=== PATIENT | male | born 1940 | race Caucasian/White ===

== ENCOUNTER 2018-04-03 13:25 | Emergency (ER) | payer MEDICARE, OTHER, SELFPAY ==
[2018-04-03] VITALS (29 sets, daily range): BP systolic 96–144; BP diastolic 53–75; PULSE 59–92; RESP 13–25; TEMP 36.3; O2SAT 89–98
--- NOTE | 2018-04-03 14:32 | ED.GENADUL_ITS ---
Discharge Plan Disposition Patient Disposition: HOME Discharge Details Chief Complaint: Dizzy/Sync Clinical Impression: Light-headedness, Elevated serum creatinine Primary Care Provider: Taz Collins ED Provider: Sammy Mahoney Home Meds and New Rx's Prescriptions: Continued atorvastatin 80 MG tablet 80 mg PO DAILY RF: 0 nitroglycerin 0.4 MG tablet, sublingual 0.4 mg Sublingual PRN PRNRF: 0 acetaminophen [Tylenol Arthritis Pain] 650 MG tablet extended release 1,300 mg PO Q6H PRN PRNQty: 0 RF: 0 terazosin 2 MG capsule 2 mg PO HS RF: 0 potassium chloride 10 MEQ capsule, extended release 20 meq PO DAILY RF: 0 allopurinol 100 MG tablet 300 mg PO DAILY RF: 0 aspirin [Aspir-81] 81 MG tablet,delayed release (DR/EC) 81 mg PO DAILY RF: 0 furosemide 40 MG tablet 40 mg PO DAILY RF: 0 metolazone 2.5 MG tablet 2.5 mg PO DIRECTED RF: 0 losartan 25 MG tablet 100 mg PO DAILY RF: 0 metoprolol succinate 25 MG tablet extended release 24 hr 50 mg PO DAILY RF: 0 Discharge Instructions Instructions: Lightheadedness (ED) Additional Instructions: Drink fluid regularly to stay hydrated. Please follow-up with your primary care physician. Call tomorrow. Additional outpatient diagnostic testing may be necessary. Return to the ER for any worsening or new concerning Referrals: Taz Collins MD [Primary Care Provider] - Discharge Data Discharge Date/Time-TO BE ENTERED AT DEPARTURE: 04/03/18 16:45 Medical Decision Making 14:32 -- 77-year-old male with history of ischemic cardiomyopathy, coronary artery disease, CHF, hypertension, chronic kidney disease, prostate cancer, here with presyncope intermittent over the past 6 weeks. Orthostatics normal. ECG reviewed and interpreted by me: Sinus rhythm 68 bpm, first-degree AV block with SD interval of 226, right bundle branch block, nondiagnostic. Check screening labs to assess for electrolyte abnormalities. Will check UA. -- labs reviewed and Cr elevated from baseline at 2.18., otherwise nondiagnostic. 16:35 -- Patient reassessed and notes feeling better. He remains hemodynamically stable plan is to have him follow-up with his primary care physician. He may benefit from outpatient echocardiogram and repeat testing of kidney function. I called and spoke with Dr. Collins who will arrange outpatient followup. HPI General Mode of arrival: ambulatory . Date/Time Provider Initiated Documentation: 04/03/18 14:28 . Limitations to Documentation: no limitations . HPI Narrative: 77-year-old male with history of ischemic cardiomyopathy, coronary artery disease, CHF, hypertension, chronic kidney disease, prostate cancer, here with presyncope intermittent over the past 6 weeks. Symptoms moderate intensity. No modifers. Sy mptoms progressively worse. Episodes are brief. He had no associated SOB or chest pain. No HATFIELD, numbness or weakness. No fevers. No new leg swelling or calf pain. Related Data Home Medications Medication Instructions Recorded Confirmed atorvastatin 80 mg PO DAILY 12/31/12 04/03/18 nitroglycerin 0.4 mg SUBLINGUAL PRN PRN 12/31/12 04/03/18 acetaminophen [Tylenol Arthritis 1,300 mg PO Q6H PRN PRN #0 01/03/13 04/03/18 Pain] terazosin 2 mg PO HS 03/05/13 04/03/18 potassium chloride 20 meq PO DAILY 03/15/15 04/03/18 allopurinol 300 mg PO DAILY 10/28/15 04/03/18 aspirin [Aspir-81] 81 mg PO DAILY 10/28/15 04/03/18 furosemide 40 mg PO DAILY 09/20/16 04/03/18 metolazone 2.5 mg PO DIRECTED 09/20/16 04/03/18 losartan 100 mg PO DAILY 04/03/18 04/03/18 metoprolol succinate 50 mg PO DAILY 04/03/18 04/03/18 Previous Rx's Medication Instructions Recorded acetaminophen [Tylenol Arthritis 1,300 mg PO Q6H PRN PRN #0 01/03/13 Pain] Allergies Allergy/AdvReac Type Severity Reaction Status Date / Time amlodipine AdvReac Intermediate Swelling/Ed Unverified 04/03/18 13:34 lottie enalapril maleate AdvReac Intermediate cough Unverified 04/03/18 13:34 [From Vasotec] enalaprilat dihydrate AdvReac Intermediate cough Unverified 04/03/18 13:34 [From Vasotec] General Stated Complaint: Dizzy/Sync RUPESH: 3 Review of Systems Review of Systems All systems reviewed & are unremarkable except as noted in HPI and below PFSH Social History Smoking and Tabacco status: Former Tobacco Use Exam Const General: cooperative and no acute distress HENMT Head: normocephalic and atraumatic Mouth: moist mucous membranes Eyes Conjunctivae: normal conjunctivae Sclera: normal sclerae EOM: EOM intact bilaterally Neck Neck: trachea midline and supple Resp Auscultation: clear to auscultation bilaterally, no rales, no rhonchi and no wheezes Cardio Jugular venous pressure: no JVD Rate: regular rate and not tachycardic Rhythm: regular rhythm GI Palpation: soft, not firm, no guarding, no masses, not rigid and nontender Skin General skin exam: no rashes or lesions noted Neuro General: alert, awake, oriented x3, tone normal and no focal motor deficits Cranial Nerves: CN's II-XI intact bilaterally Cognition: normal cognition Speech: speech normal Motor: strength 5/5 throughout Sensory Exam: no sensory deficits noted Extrem General: no edema Psych Appearance: grossly normal Mental Status: mental status grossly normal Speech and Movement: speech and movement normal Course Vital Signs Respiratory Rate 15 04/03/18 13:25 Pulse Oximetry 98 04/03/18 13:25 Temperature 36.3 C L 04/03/18 13:31 Temperature Source Skin 04/03/18 13:31 Pulse 66 04/03/18 14:01 Pulse 66 04/03/18 14:10 Respiratory Rate 19 04/03/18 14:10 Respiratory Effort Non-Labored 04/03/18 13:47 Respiratory Depth Normal 04/03/18 13:47 Respiratory Pattern Normal 04/03/18 13:47 Blood Pressure 103/75 04/03/18 14:01 Blood Pressure Mean 82 04/03/18 14:01 Blood Pressure Position Supine 04/03/18 13:31 Pulse Oximetry 89 L 04/03/18 14:10 Pain Level 0 04/03/18 13:31
[2018-04-03] MEDS: Normal Saline 250 ML IV (14:37)
[2018-04-03 14:53] LABS: Abs Immature Grans 0.02 k/cumm (0.0-0.09); Absolute Basophil Count 0.03 k/cumm (0.0-0.2); Absolute Lymphocyte Count 1.51 k/cumm (1.2-3.4); Absolute Monocyte Count 0.81 k/cumm (0.11-0.7); Absolute Neutrophil Count 6.19 k/cumm (1.2-6.7); Basophils % 0.3; Eosinophils % 1.2; HCT 38.1 % (40.0-50.0); HGB 12.4 g/dL (13.5-17.5); Immature Grans % 0.2; Lymphocytes % 17.4; Mean Corp. HGB Concentration 32.5 g/dL (32.0-36.0); Mean Corpuscular Hemoglobin 32.7 pg (27.0-33.0); Mean Corpuscular Volume 100.5 fL (80-95); Mean Platelet Volume 9.6 fL (8.0-11.0); Monocytes % 9.4; Neutrophils % 71.5; Platelet Count 327 x1000/uL (130-400); RBC 3.79 m/cumm (4.50-6.00); RBC Distribution Width 13.9 % (11.8-14.1); White Blood Cell Count 8.66 k/cumm (4.4-10.8)
[2018-04-03 14:57] LABS: Bilirubin Negative (Negative); Blood Negative (Negative); Clarity Clear; Glucose Negative (Negative); Ketones Negative (Negative); Leukocyte Esterase Negative (Negative); Nitrite Negative (Negative); Specific Gravity 1.015 (1.005-1.025); Urobilinogen 0.2 EU/dL (Up TO 0.2)
[2018-04-03 14:59] LABS: ALT 29 U/L (12-78); AST 22 U/L (15-37); Albumin 3.2 g/dL (3.4-5.0); Alkaline Phosphatase 170 U/L (46-116); Anion Gap 9.4 mmol/L (3-11); BUN 40 mg/dL (7-18); Bilirubin, Total 0.8 mg/dL (0.2-1.0); CO2 29.6 mmol/L (21.0-32.0); CREATININE 2.18 mg/dL (0.70-1.30); Calcium 8.8 mg/dL (8.5-10.1); Chloride 100 mmol/L (98-107); Estimated GFR 29.48 (mL/min/1.73m2); Glucose 97 mg/dL (70-100); Magnesium 1.9 mg/dL (1.8-2.4); Sodium 139 mmol/L (136-145); Total Protein 6.9 g/dL (6.4-8.2)
[2018-04-03 15:00] LABS: Troponin I < 0.02 ng/mL (0.00-0.06)
== END 2018-04-03 16:45 | disposition home or self-care (01) ==
PROVIDERS: Emergency Provider Student in an Organized Health Care Education/Training Program; PCP Internal Medicine
DX: R42 Dizziness and giddiness (principal); R94.4 Abnormal results of kidney function studies; I25.5 Ischemic cardiomyopathy; J44.9 Chronic obstructive pulmonary disease, unspecified; Z87.891 Personal history of nicotine dependence; I12.9 Hypertensive chronic kidney disease with stage 1 through stage 4 chronic kidney disease, or unspecified chronic kidney disease; N18.9 Chronic kidney disease, unspecified; I25.10 Atherosclerotic heart disease of native coronary artery without angina pectoris; Z95.5 Presence of coronary angioplasty implant and graft
CPT/HCPCS: 36415; 80053; 93005; 96360; 99284; 81003; 83735; 84484; 85025; 93010

== ENCOUNTER 2018-08-27 13:05 | Outpatient (REF) | payer MEDICARE, OTHER, SELFPAY ==
[2018-08-27 21:02] LABS: Anion Gap 11.2 mmol/L (3-11); BUN 31 mg/dL (7-18); CO2 26.8 mmol/L (21.0-32.0); CREATININE 1.39 mg/dL (0.70-1.30); Calcium 8.5 mg/dL (8.5-10.1); Chloride 100 mmol/L (98-107); Estimated GFR 49.55 (mL/min/1.73m2); Glucose 114 mg/dL (70-100); Potassium 4.3 mmol/L (3.5-5.1); Sodium 138 mmol/L (136-145)
== END 2018-08-27 13:25 ==
LOC: NCHCN 13:05
PROVIDERS: PCP Internal Medicine; Visit Provider Internal Medicine
DX: I10 Essential (primary) hypertension (principal)
CPT/HCPCS: 80048

== ENCOUNTER 2019-09-03 09:14 | Outpatient (REF) | payer MEDICARE, OTHER, SELFPAY ==
[2019-09-03 21:45] LABS: Anion Gap 10.9 mmol/L (3-11); CO2 28.1 mmol/L (21.0-32.0); CREATININE 1.66 mg/dL (0.70-1.30); Calcium 9.7 mg/dL (8.5-10.1); Calculated LDL 74 mg/dL (<100); Chloride 98 mmol/L (98-107); Cholesterol 151 mg/dL (<200); Estimated GFR 40.27 (mL/min/1.73m2); Glucose 95 mg/dL (74-106); HDL Cholesterol 45 mg/dL (40-60); Potassium 5.1 mmol/L (3.5-5.1); Sodium 137 mmol/L (136-145); Triglyceride 164 mg/dL (<150)
[2019-09-03 22:19] LABS: BUN 55 mg/dL (7-18)
== END 2019-09-03 09:34 ==
LOC: NCHCN 09:14
PROVIDERS: PCP Internal Medicine; Visit Provider Internal Medicine
DX: I10 Essential (primary) hypertension (principal); E78.5 Hyperlipidemia, unspecified; N18.9 Chronic kidney disease, unspecified
CPT/HCPCS: 80048; 80061

== ENCOUNTER 2020-03-10 15:25 | Outpatient (REF) | payer MEDICARE, OTHER, SELFPAY ==
[2020-03-10 14:05] LABS: BUN 35 mg/dL (7-18); CREATININE 1.84 mg/dL (0.70-1.30); Calcium 8.4 mg/dL (8.5-10.1); Chloride 94 mmol/L (98-107); Estimated GFR 35.66 (mL/min/1.73m2); Glucose 97 mg/dL (74-106); Magnesium 1.5 mg/dL (1.8-2.4); Potassium 4.1 mmol/L (3.5-5.1); Sodium 134 mmol/L (136-145); TSH 1.67 uIU/mL (0.36-3.74)
== END 2020-03-10 15:45 ==
LOC: NCHCN 15:25
PROVIDERS: PCP Internal Medicine; Visit Provider Internal Medicine
DX: I10 Essential (primary) hypertension (principal); I25.10 Atherosclerotic heart disease of native coronary artery without angina pectoris; N18.30 Chronic kidney disease, stage 3 unspecified
CPT/HCPCS: 80048; 83735; 84443

== ENCOUNTER 2020-03-24 13:49 | Inpatient (IN) | payer MEDICARE, OTHER, SELFPAY ==
[2020-03-24] VITALS (46 sets, daily range): BP systolic 109–170; BP diastolic 46–109; PULSE 48–139; RESP 17–29; TEMP 36.1–37.1; O2SAT 90–99
--- NOTE | 2020-03-24 13:45 | DI.RAD_ITS ---
EXAM: XR CHEST 2V PA LATERAL CLINICAL HISTORY: weakness/fall TECHNIQUE: 2D digital imaging was performed. COMPARISON: CT CHEST WITHOUT CONTRAST from 10/28/2016 FINDINGS: AP view is lordotic. The lungs are not well inflated on the lateral view which also shows respirator y motion. The heart is enlarged. The aorta is tortuous. The lungs appear clear. No pneumothorax o r compression fractures are seen. There are degenerative changes in the spine and shoulders. There is no evidence infiltrate or effusion. IMPRESSION: Cardiomegaly. No acute pulmonary findings. DATA REPOSITORY: RADIATION DOSE DELIVERED:
--- NOTE | 2020-03-24 13:45 | DI.CT_ITS ---
EXAM: CT HEAD WO CLINICAL HISTORY: fall; altered. TECHNIQUE: Imaging Protocol: Axial computed tomography images with coronal and sagittal reformatted images were created and reviewed COMPARISON: No exams were available for comparison FINDINGS: Ventricles and Extra axial spaces: Moderate to severe atrophy. Ventricular size is proportional to d egree of atrophy. Hemorrhage: None. Cerebral parenchyma: Normal. Midline shift: None. Brainstem/Cerebellum: Normal. Calvarium: Normal. Visualized Paranasal sinuses/Mastoids: Clear. Soft Tissues: Unremarkable. IMPRESSION: Atrophy. No acute intracranial process. RADIATION DOSE DELIVERED: 797.85mGy.cm Total DLP DATA REPOSITORY: All CT scans at this facility are submitted to the National Radiology Data Registry (NRDR) Dose Index Registry (DIR) with the [employer] (A[employer]). RADIATION OPTIMIZATION: All CT scans at this facility use at least one of these dose optimization te chniques: automated exposure control; mA and/or kV adjustment per patient size (includes targeted exa ms where dose is matched to clinical indication); or iterative reconstruction.
--- NOTE | 2020-03-24 13:45 | RT.EKG_ITS ---
APPROVED REPORT Exam: Resting ECG Patient Location: E HR:91 bpm ECG Measurements Heart Rate 91 AXIS PA 205 P 51 QRSd 141 QRS -69 QT 407 T 61 QTc 503 Conclusion Sinus arrhythmia...V-rate 70-112, variation>10% Atrial premature complex...SV complex w/ short R-R interval Right bundle branch block...QRSd>120, terminal axis(90,270) Inferolateral infarct, old...Q >40mS, inf-lat leads No STEMI.
--- NOTE | 2020-03-24 13:45 | DI.RAD_ITS ---
EXAM: XR PELVIS AP CLINICAL HISTORY: fall. TECHNIQUE: 2D digital imaging was performed. COMPARISON: CR RT HIP COMPLETE AP PELVIS from 08/01/2017 FINDINGS: BONES: No acute fracture is present. No bony destructive lesion is seen. JOINTS: No dislocation present. No joint space narrowing is present. Left hip prosthesis, stable appe arance. SOFT TISSUE: Vascular calcifications. Bladder catheter. IMPRESSION: Unremarkable radiographs of the pelvis. DATA REPOSITORY: RADIATION DOSE DELIVERED:
--- NOTE | 2020-03-24 14:04 | ED.GENADUL_ITS ---
Discharge Plan Disposition Patient Disposition: [facility] INPATIENT Condition: Poor Discharge Details Clinical Impression: Rhabdomyolysis, Acute dehydration, Acute kidney injury superimposed on chronic kidney disease Primary Care Provider: Taz Collins ED Provider: Diego Sherman and New Rx's Prescriptions: No Action atorvastatin 80 MG tablet 80 mg PO DAILY RF: 0 nitroglycerin 0.4 MG tablet, sublingual 0.4 mg Sublingual PRN PRNRF: 0 acetaminophen [Tylenol Arthritis Pain] 650 MG tablet extended release 1,300 mg PO Q6H PRN PRNQty: 0 RF: 0 potassium chloride 10 MEQ capsule, extended release 20 meq PO DAILY RF: 0 allopurinol 100 MG tablet 300 mg PO DAILY RF: 0 aspirin [Aspir-81] 81 MG tablet,delayed release (DR/EC) 81 mg PO DAILY RF: 0 magnesium L-lactate [Mag-Lactate SR] 84 mg Tablet Extended Release 84 mg PO DAILY RF: 0 furosemide 40 MG tablet 40 mg PO DAILY RF: 0 metolazone 2.5 MG tablet 2.5 mg PO DIRECTED RF: 0 losartan 25 MG tablet 100 mg PO DAILY RF: 0 metoprolol succinate 25 MG tablet extended release 24 hr 50 mg PO DAILY RF: 0 Medical Decision Making Patient presenting after being found on the floor at his house. Denies chest pain, shortness of breath, syncope. Unable to get up after a mechanical fall. No clear-cut injury. Will obtain CT head, chest x-ray, pelvis x-ray. Will start fluids and place Garcia catheter to monitor I's and O's. Laboratory studies including CPK sent. EKG appears to be sinus rhythm with PACs and irregular. Right bundle branch block present. Nursing and myself unable to pass Garcia catheter. I spoke with Dr. Marshall who agreed to come down in place Garcia for us. Laboratory studies are showing an elevated white count, elevated BUN and creatinine, low potassium, intermediate troponin and elevated CPK. CT head negative for bleed. Chest x-ray and pelvis x-ray negative for acute abnormalities. Urinalysis negative for infection. Initial Garcia output 500 to 600 mL after placement. No significant urine output since then despite receiving fluids at 300 an hour. Case discussed with hospitalist. Because of history of CAD/ischemic cardiomyopathy/CHF with no recent ejection fraction documented will put in ICU overnight for fluid resuscitation and monitoring of oxygenation and urine output. I did speak to the patient's son to give him an update. Medical Records Medical records reviewed: Yes I reviewed the patient's medical records. Lab Data Lab results reviewed: Yes I reviewed the patient's lab results. ECG Data Attestation: I personally reviewed and interpreted this ECG (s) as follows: Interpretation: see EKG HPI General Mode of arrival: EMS . Date/Time Provider Initiated Documentation: 03/24/20 13:59 . Limitations to Documentation: no limitations . Information obtained by: patient, EMS, RN notes reviewed and old records reviewed . HPI Narrative: Patient brought in by EMS after welfare check and patient being on the floor for at least a couple of days. Patient is a little altered. He denies having syncope. He did not strike his head and had no loss of consciousness. He denies having any chest pain or shortness of breath. He was unable to get himself up and was crawling and dragging himself across the floor. He reports no food or water intake. He complains of some low back discomfort. He has no abdominal pain or vomiting. EMS reported heart rate on the monitor being recorded as high as 200s. He also reported saturations in the 70s. Related Data Home Medications Medication Instructions Recorded Confirmed atorvastatin 80 mg PO DAILY 12/31/12 03/24/20 nitroglycerin 0.4 mg SUBLINGUAL PRN PRN 12/31/12 03/24/20 acetaminophen [Tylenol Arthritis 1,300 mg PO Q6H PRN PRN #0 01/03/13 03/24/20 Pain] potassium chloride 20 meq PO DAILY 03/15/15 03/24/20 allopurinol 300 mg PO DAILY 10/28/15 03/24/20 aspirin [Aspir-81] 81 mg PO DAILY 10/28/15 03/24/20 furosemide 40 mg PO DAILY 09/20/16 03/24/20 metolazone 2.5 mg PO DIRECTED 09/20/16 03/24/20 losartan 100 mg PO DAILY 04/03/18 03/24/20 metoprolol succinate 50 mg PO DAILY 04/03/18 03/24/20 magnesium L-lactate [Mag-Lactate 84 mg PO DAILY 03/24/20 03/24/20 SR] Previous Rx's Medication Instructions Recorded acetaminophen [Tylenol Arthritis 1,300 mg PO Q6H PRN PRN #0 01/03/13 Pain] Allergies Allergy/AdvReac Type Severity Reaction Status Date / Time amlodipine AdvReac Intermediate Swelling/Ed Unverified 03/24/20 14:04 lottie enalapril maleate AdvReac Intermediate cough Unverified 03/24/20 14:04 [From Vasotec] enalaprilat dihydrate AdvReac Intermediate cough Unverified 03/24/20 14:04 [From Vasotec] General Stated Complaint: GenMedical RUPESH: 2 Review of Systems Narrative: 12/10 Review of Systems completed and is negative except as stated above in HPI (Systems reviewed: Const, Eyes, ENT, Resp, CV, GI, , MSK, Skin, Neuro) [facility] Medical History (Updated 03/24/20 @ 16:52 by Diego Sherman MD) Bladder neck contracture CAD (coronary artery disease) Chronic kidney disease Hypercholesterolemia Hypertension Ischemic cardiomyopathy Prostate cancer Surgical History History of heart artery stent S/P prostatectomy Status post THR (total hip replacement) Social History Smoking/Tobacco Use Status: Former Tobacco Use Smoking risk assessment performed?: Yes Drug use: Never Substance use type: does not use Current gender identity: male Do you feel safe at home: Yes Do you feel safe in your relationship?: Yes Exam Narrative Exam Narrative: Const: Elderly male in NAD. HEENT: NC/AT. Normal facial exam. Eyes: Normal conjunctiva and sclera. Neck: Supple. Trachea midline. Lungs: Normal respiratory effort. Lungs are clear. Cor: Irr without murmur/gallop. Good radial pulses. GI: Soft. NT/ND. No guarding or rebound. Back: No midline tenderness. Neuro: Awake and alert, mildly confused. Speech a little slurred at times but seems to be related to dry mouth. Cranial nerves II - XII grossly intact. No gross motor or sensory deficit. Ext: No C/C/E. No deformity or tenderness. Skin: Cold. No rash. Course Vital Signs Vital signs: Vital Signs Temperature 97.0 F L 03/24/20 13:52 Pulse 68 03/24/20 13:52 Respiratory Rate 22 03/24/20 13:52 Blood Pressure 155/100 H 03/24/20 13:52 Pulse Oximetry 99 03/24/20 13:52 Temperature 97.0 F L 03/24/20 13:52 Temperature Source Temporal Artery Scan 03/24/20 13:52 Pulse 68 03/24/20 13:52 Respiratory Rate 22 03/24/20 13:52 Respiratory Effort Non-Labored 03/24/20 13:58 Blood Pressure 155/100 H 03/24/20 13:52 Blood Pressure Position Supine 03/24/20 13:52 Pulse Oximetry 99 03/24/20 13:52 Oxygen Delivery Method Room Air 03/24/20 13:52 Oxygen Flow Rate 0 03/24/20 13:52
[2020-03-24] MEDS: Normal Saline 1,000 ML 300 ML IV (14:15)
[2020-03-24] MEDS: Normal Saline Flush 10 ML SYR IVP (14:16)
[2020-03-24 14:24] LABS: Absolute Basophil Count 0.03 10^3/uL (0.0-0.2); Absolute Lymphocyte Count 1.18 10^3/uL (1.2-3.4); Absolute Monocyte Count 1.31 10^3/uL (0.1-0.8); Basophils % 0.2; Eosinophils % 0.1; HCT 48.9 % (40.0-50.0); HGB 16.3 g/dL (13.5-17.5); Immature Grans % 0.7; Lymphocytes % 8.2; MCH 32.5 pg (27.0-33.0); MCHC 33.3 % (32.0-36.0); MCV 97.4 fL (80-95); MPV 9.6 fL (8.0-11.0); Monocytes % 9.1; Neutrophils % 81.7; Nucleated RBC 0 %; Platelet Count 334 10^3/uL (130-400); RBC 5.02 10^6/uL (4.36-5.78); RDW 14.2 % (11.8-14.1); RDW-SD 51.3 fL; WBC 14.39 10^3/uL (4.4-10.8)
[2020-03-24 14:32] LABS: Absolute Eosinophil Count 0.01 10^3/uL (0.0-0.7); Absolute Neutrophil Count 11.76 10^3/uL (1.2-6.7)
[2020-03-24 14:39] LABS: ALT 26 U/L (16-63); AST 90 U/L (15-37); Alkaline Phosphatase 325 U/L (46-116); BUN 50 mg/dL (7-18); Bilirubin, Total 1.3 mg/dL (0.2-1.0); CREATININE 2.91 mg/dL (0.70-1.30); Calcium 9.3 mg/dL (8.5-10.1); Chloride 92 mmol/L (98-107); Estimated GFR 21.01 (mL/min/1.73m2); Glucose 104 mg/dL (74-106); Potassium 3.1 mmol/L (3.5-5.1); Sodium 133 mmol/L (136-145); Total Protein 7.1 g/dL (6.4-8.2)
[2020-03-24 14:41] LABS: Troponin I 0.14 ng/mL (<0.06)
[2020-03-24 14:48] LABS: Magnesium 2.2 mg/dL (1.8-2.4)
[2020-03-24 14:49] LABS: Creatine Kinase 2761 U/L (39-308)
--- NOTE | 2020-03-24 15:03 | W.UROLOGYCON ---
Date of service: 03/24/20 Time of Service: 15:03 Assessment and Plan Assessment and plan (1) Bladder neck contracture: Status: Acute Assessment and plan: The catheter can be removed once it is no longer needed for accurate I/os. History of Present Illness History of Present Illness Chief Complaint: Bladder neck contracture Narrative: This is a 79-year-old gentleman who presented to the emergency room after being found unresponsive. He has a history of prostate cancer and had undergone radical prostatectomy in in the past. A Garcia catheter is requested for accurate I/O readings. The staff was unable to place a catheter due to resistance met at the bladder neck region. [facility] Medical History CAD (coronary artery disease) Chronic kidney disease Hypercholesterolemia Hypertension Ischemic cardiomyopathy Prostate cancer Surgical History History of heart artery stent S/P prostatectomy Status post THR (total hip replacement) Social History Smoking/Tobacco Use Status: Former Tobacco Use Smoking risk assessment performed?: Yes Drug use: Never Substance use type: does not use Do you feel safe at home: Yes Do you feel safe in your relationship?: Yes Exam Narrative Exam Narrative: The patient was seen at the bedside in the emergency room. His genitalia was prepped. 2% Xylocaine jelly was instilled into the urethra to act as a local anesthetic. I passed a 16 Uzbek [place] tip catheter through the urethral meatus and advanced the catheter up until resistance was met. I then used a guidewire that I inserted through the lumen of the [place] tip catheter. I advanced the wire until the opposite end appeared to be within the bladder. I then removed the [place] tip catheter and dilated the strictured area using an 18 Uzbek fascial dilator. I remove the fascial dilator and passed the 16 Uzbek [place] tip catheter back over the wire and into the bladder. The wire was removed. The catheter was hooked to gravity drainage. The catheter balloon was inflated with 10 cc of sterile water. Results Last Vital Signs Temp 36.1 C L 03/24/20 13:52 Pulse 68 03/24/20 13:52 Resp 26 H 03/24/20 14:16 BP 155/100 H 03/24/20 13:52 Pulse Ox 99 03/24/20 13:52 Labs Result diagrams: 03/24/20 13:58 03/24/20 13:58 Labs: Laboratory Results - last 24 hr 03/24/20 03/24/20 03/24/20 13:58 13:58 13:58 WBC 14.39 H RBC 5.02 Hgb 16.3 Hct 48.9 MCV 97.4 H MCH 32.5 MCHC 33.3 RDW 14.2 H Plt Count 334 MPV 9.6 Immature Gran % 0.7 Neutrophils % 81.7 Lymphocytes % 8.2 Monocytes % 9.1 Eosinophils % 0.1 Basophils % 0.2 Nucleated RBC % 0 Absolute Neutrophils 11.76 H Absolute Lymphocytes 1.18 L Absolute Monocytes 1.31 H Absolute Eosinophils 0.01 Absolute Basophils 0.03 Sodium 133 L Potassium 3.1 L Chloride 92 L Carbon Dioxide 34.0 H Anion Gap 7.0 BUN 50 H Creatinine 2.91 H Estimated GFR/1.73 m2 21.01 Glucose 104 Calcium 9.3 Magnesium 2.2 Total Bilirubin 1.3 H AST 90 H ALT 26 Alkaline Phosphatase 325 H Creatine Kinase 2761 H Troponin I 0.14 H* Total Protein 7.1 Albumin 3.0 L
[2020-03-24 15:11] LABS: Bilirubin Negative (Negative); Blood Moderate (Negative); Clarity Clear (Clear); Glucose Negative (Negative); Ketones Negative (Negative); Leukocyte Esterase Negative (Negative); Nitrite Negative (Negative); Urobilinogen 0.2 EU/dL (Up TO 0.2); pH 7.5 (5-8)
[2020-03-24 15:22] LABS: Bacteria Rare HPF (Negative); Crystals Negative HPF (Negative); Epithelial Cells Negative HPF (Negative); Other Cells Negative (Negative); WBC 0-2 HPF (0-5)
[2020-03-24 15:23] LABS: C & S Indicated? No; Casts Negative LPF (Negative); Mucus Trace (Negative)
--- NOTE | 2020-03-24 16:45 | W.PM.HP.N ---
Date of service: 03/24/20 Time of Service: 16:45 Assessment and Plan Assessment and plan (1) Acute kidney injury superimposed on chronic kidney disease: Status: Acute Assessment and plan: Due to rhabdomyolysis. Agree with cautions yet aggressive IV hydration in the ICU setting while carefully monitoring respiratory status, I/O, daily weights, CPK. Hold statin, losartan. (2) Rhabdomyolysis: Status: Acute Assessment and plan: As above Consider seizure (3) Elevated troponin: Status: Acute Assessment and plan: in setting of ALESIA and rhabdo. NO acute ischemia on EKG, but with h/o CAD, old HI, and ischemic cardiomyopathy, will continue to trend troponins. I do not believe that at this point heparinization/plavix is necessary, but will give asa. (4) Acute dehydration: Status: Acute Assessment and plan: IVF as above (5) Bladder neck contracture: Status: Acute Assessment and plan: s/p burgos by Dr Marshall. Will need outpatient follow up. (6) CAD (coronary artery disease): Status: Chronic Assessment and plan: R/o ACS (7) Hypertension: Status: Chronic Assessment and plan: hold ARB, metolazone (8) Ischemic cardiomyopathy: Status: Chronic Assessment and plan: As above. Check echo. Monitor volume status. (9) Alcohol dependence: Status: Chronic Assessment and plan: Start CIWA with prn ativan. Give thiamine now. (10) DVT prophylaxis: Status: Acute Assessment and plan: Sc heparin (11) Discharge planning issues: Status: Acute Assessment and plan: DNR/DNI, per computer record. Admit to ICU. History of Present Illness History of Present Illness Chief Complaint: found on the floor on wellfare check after not being heard from for 3 days Narrative: Mr Yuan is a 79 year old male with PMHx of ischemic cardiomyopathy (we do not have EF since 2012), as well as CAD, CKD III, HTN, Hyperlipidemia, prostate cancer, who was found on the floor of his house on a wellfare check. He was alert and confused and covered in his feces and, reportedly, had not eaten or drunk water for days. While this is not documented, when EMS first got to the scene he was reportedly tachycardic to 200s and hypoxic to the 70s. There are questions about accuracy of those numbers, and we are not able to confirm them. On arrival to ED, He is A&Ox2, not tachycardic or hypoxic. He is found to be in rhabdomyolysis. He does not seem to have sustained any fractures. He states that he remembers having a mechanical fall, falling over backwards on his buttocks and hitting his head a little bit, but it does not hurt now. In fact, nothing hurts at this time. He states he was trying to get up and spent some time crawling, but could not get up to his feet. He does drink whiskey - last drink >3 days ago. He does not specify how much he drinks (depends on my mood!) He has an elevated troponin of 0.14 without evidence of ACS on the EKG. He was intiated on aggressive IVF. He is making urine. He required urologic assistance in placing a burgos catheter due to a bladder neck contracture. ICU admission was requested due to concerns for pulmonary status with listed history of ICMO and requirement for aggressive IV hydration. Review of Systems All systems reviewed & are unremarkable except as noted in HPI and below PFSH Medical History (Updated 03/24/20 @ 16:56 by Mónica Moreno MD) Bladder neck contracture CAD (coronary artery disease) Chronic kidney disease Hypercholesterolemia Hypertension Ischemic cardiomyopathy Prostate cancer Surgical History History of heart artery stent S/P prostatectomy Status post THR (total hip replacement) Social History (Updated 03/24/20 @ 17:40 by Mónica Moreno MD) Smoking/Tobacco Use Status: Former Tobacco Use Smoking risk assessment performed?: Yes Alcohol Intake: current Alcohol type: other Drug use: Never Substance use type: does not use Current gender identity: male Do you feel safe at home: Yes Do you feel safe in your relationship?: Yes Meds Home Medications and Allergies Home Medications Medication Instructions Recorded Confirmed Type atorvastatin 80 mg PO DAILY 12/31/12 03/24/20 History nitroglycerin 0.4 mg SUBLINGUAL PRN PRN 12/31/12 03/24/20 History acetaminophen [Tylenol Arthritis 1,300 mg PO Q6H PRN PRN #0 01/03/13 03/24/20 Rx Pain] potassium chloride 20 meq PO DAILY 03/15/15 03/24/20 History allopurinol 300 mg PO DAILY 10/28/15 03/24/20 History aspirin [Aspir-81] 81 mg PO DAILY 10/28/15 03/24/20 History furosemide 40 mg PO DAILY 09/20/16 03/24/20 History metolazone 2.5 mg PO DIRECTED 09/20/16 03/24/20 History losartan 100 mg PO DAILY 04/03/18 03/24/20 History metoprolol succinate 50 mg PO DAILY 04/03/18 03/24/20 History magnesium L-lactate [Mag-Lactate 84 mg PO DAILY 03/24/20 03/24/20 History SR] Allergies Allergy/AdvReac Type Severity Reaction Status Date / Time amlodipine AdvReac Intermediate Swelling/Ed Unverified 03/24/20 14:04 lottie enalapril maleate AdvReac Intermediate cough Unverified 03/24/20 14:04 [From Vasotec] enalaprilat dihydrate AdvReac Intermediate cough Unverified 03/24/20 14:04 [From Vasotec] Exam Narrative Exam Narrative: General: Very alert, anxious, elderly male, A&Ox2, speaks somewhat unclearly, but able to slow down the speech and annunciate better Neurological: A&Ox2, no focal deficits, mildly tremulous Psychiatric: anxious Skin: mottling/bruising over B knees, venous stasis discoloration of B feet HEENT: Atraumatic, normocephalic, EOMI, dry MM, clear oropharynx, no submandibular or cervical lymphadenopathy, +goiter, no JVD Cardiovascular: mostly regular rhythm with occasional irregularity, no m/r/g Lungs: Diminished breath sounds B Gastrointestinal: soft, nontender, nondistended Genitourinary: has a burgos Extremities: no edema BLE's, trace pedal pulses, discoloration of B plantar surfaces, no clubbing/cyanosis Results Imaging Additional studies: CXR; Cardiomegaly. No acute pulmonary findings. CT head w/o contrast: Atrophy. No acute intracranial process. XR pelvis: Unremarkable radiographs of the pelvis. EKG: NSR, RBBB, HR 91, old inferolateral HI, nonspecific ST-T changes, no acute ischemia. Labs Result diagrams: 03/24/20 13:58 03/24/20 13:58 Labs: Laboratory Results - last 24 hr 03/24/20 03/24/20 03/24/20 13:58 13:58 13:58 WBC 14.39 H RBC 5.02 Hgb 16.3 Hct 48.9 MCV 97.4 H MCH 32.5 MCHC 33.3 RDW 14.2 H Plt Count 334 MPV 9.6 Immature Gran % 0.7 Neutrophils % 81.7 Lymphocytes % 8.2 Monocytes % 9.1 Eosinophils % 0.1 Basophils % 0.2 Nucleated RBC % 0 Absolute Neutrophils 11.76 H Absolute Lymphocytes 1.18 L Absolute Monocytes 1.31 H Absolute Eosinophils 0.01 Absolute Basophils 0.03 Sodium 133 L Potassium 3.1 L Chloride 92 L Carbon Dioxide 34.0 H Anion Gap 7.0 BUN 50 H Creatinine 2.91 H Estimated GFR/1.73 m2 21.01 Glucose 104 Calcium 9.3 Magnesium 2.2 Total Bilirubin 1.3 H AST 90 H ALT 26 Alkaline Phosphatase 325 H Creatine Kinase 2761 H Troponin I 0.14 H* Total Protein 7.1 Albumin 3.0 L Urine Color Urine Clarity Urine pH Ur Specific [place] Urine Protein Urine Ketones Urine Blood Urine Nitrite Urine Bilirubin Urine Urobilinogen Ur Leukocyte Esterase Urine RBC Urine WBC Ur Epithelial Cells Urine Crystals Urine Bacteria Urine Casts Urine Mucus Urine Other Ur Culture Indicated? Urine Glucose 03/24/20 15:04 WBC RBC Hgb Hct MCV MCH MCHC RDW Plt Count MPV Immature Gran % Neutrophils % Lymphocytes % Monocytes % Eosinophils % Basophils % Nucleated RBC % Absolute Neutrophils Absolute Lymphocytes Absolute Monocytes Absolute Eosinophils Absolute Basophils Sodium Potassium Chloride Carbon Dioxide Anion Gap BUN Creatinine Estimated GFR/1.73 m2 Glucose Calcium Magnesium Total Bilirubin AST ALT Alkaline Phosphatase Creatine Kinase Troponin I Total Protein Albumin Urine Color Yellow Urine Clarity Clear Urine pH 7.5 Ur Specific [place] 1.020 Urine Protein 100 H Urine Ketones Negative Urine Blood Moderate H Urine Nitrite Negative Urine Bilirubin Negative Urine Urobilinogen 0.2 Ur Leukocyte Esterase Negative Urine RBC 10-20 H Urine WBC 0-2 Ur Epithelial Cells Negative Urine Crystals Negative Urine Bacteria Rare Urine Casts Negative Urine Mucus Trace Urine Other Negative Ur Culture Indicated? No Urine Glucose Negative Last Vital Signs Temp 36.1 C L 03/24/20 13:52 Pulse 50 L 03/24/20 16:01 Resp 24 03/24/20 16:10 BP 131/62 03/24/20 16:01 Pulse Ox 93 03/24/20 16:01 COVID-19 Screening Have you, or household traveled for leisure in last 14 days?: No Had IN PERSON contact w/suspected or confirmed C-19 person: No
[2020-03-24 17:13] LABS: *AMPHETAMINES SCREEN URINE Negative (Negative); *BARBITURATES SCREEN URINE Negative (Negative); *BENZODIAZEPINES SCREEN URINE Negative (Negative); Cannabinoids THC Negative (Negative); Cocaine Screen,Urine Negative (Negative); METHADONE URINE SCREEN Negative (Negative); OPIATES URINE SCREEN Negative (Negative)
[2020-03-24 17:22] LABS: Tricyclic Antidepressants Negative (Negative)
[2020-03-24 17:50] LABS: Troponin I 0.12 ng/mL (<0.06)
[2020-03-24] MEDS: Heparin 5,000 UNITS/ML VIAL 5000 UNITS SC (18:28)
[2020-03-24] MEDS: THIAMINE 100 MG in Normal Saline 100 ML 200 MG IVPB (18:29)
[2020-03-24] MEDS: Aspirin E.C. 325 MG TABEC PO (18:29)
[2020-03-24] MEDS: Potassium Chloride 20 MEQ TABCR PO (20:08)
[2020-03-24] MEDS: Nystatin POWDER 60 GM JAR TP (20:08)
[2020-03-24] MEDS: LORazepam 1 MG TAB PO/SL ×2 (20:56→22:19)
[2020-03-25] VITALS (64 sets, daily range): BP systolic 119–172; BP diastolic 59–115; PULSE 49–112; RESP 19–35; TEMP 35.9–36.9; O2SAT 89–96
--- NOTE | 2020-03-25 | DI.US_ITS ---
EXAM: US RENAL CLINICAL HISTORY: ALESIA. TECHNIQUE: Hearn scale, color and spectral Doppler were used. COMPARISON: CT CHEST FOR PULMONARY EMBOLUS from 09/20/2016 CT CHEST FOR PULMONARY EMBOLUS from 09/20/2016 CR XR PELVIS AP from 03/24/2020 CR XR PELVIS AP from 03/24/2020 FINDINGS: The exam is limited by patient condition and SSD of scanning through the ribs.. Renal size in cm: Right: 10.4 left: Not measured. Normal parenchymal thickness. Echogenicity: Normal Hydronephrosis: No Cyst or mass: 2.5 centimeters cyst upper to mid left kidney. 1.3 centimeter cyst lower pole left kid toan. Nephrolithiasis: No large stones seen Other findings: None Bladder:Not visualized IMPRESSION: Limited exam. Left renal cysts. No evidence of hydronephrosis. DATA REPOSITORY:
[2020-03-25] MEDS: LORazepam 2 MG/ML VIAL IVP (00:07)
[2020-03-25] MEDS: Normal Saline Flush 10 ML SYR IVP ×6 (00:10→18:34)
[2020-03-25] MEDS: Normal Saline 1,000 ML 175 ML IV ×2 (00:24→04:05)
[2020-03-25 00:46] LABS: Troponin I 0.12 ng/mL (<0.06)
[2020-03-25 01:23] LABS: COVID-19 RT-PCR UVMMC Result Negative (Negative)
[2020-03-25] MEDS: Heparin 5,000 UNITS/ML VIAL 5000 UNITS SC ×3 (01:36→18:46)
[2020-03-25] MEDS: Normal Saline 500 ML IV (02:57)
[2020-03-25 07:22] LABS: Abs Immature Grans 0.08 10^3/uL (0.0-0.06); Absolute Basophil Count 0.04 10^3/uL (0.0-0.2); Absolute Lymphocyte Count 1.51 10^3/uL (1.2-3.4); Absolute Monocyte Count 1.41 10^3/uL (0.1-0.8); Basophils % 0.3; Eosinophils % 0.3; HCT 39.1 % (40.0-50.0); HGB 13.2 g/dL (13.5-17.5); Immature Grans % 0.5; Lymphocytes % 10.2; MCH 33.1 pg (27.0-33.0); MCHC 33.8 % (32.0-36.0); MPV 9.9 fL (8.0-11.0); Monocytes % 9.5; Neutrophils % 79.2; Nucleated RBC 0 %; Platelet Count 222 10^3/uL (130-400); RBC 3.99 10^6/uL (4.36-5.78); RDW 14.3 % (11.8-14.1); RDW-SD 51.8 fL; WBC 14.82 10^3/uL (4.4-10.8)
[2020-03-25 07:25] LABS: Absolute Eosinophil Count 0.04 10^3/uL (0.0-0.7); Absolute Neutrophil Count 11.74 10^3/uL (1.2-6.7)
[2020-03-25 07:45] LABS: ALT 23 U/L (16-63); AST 77 U/L (15-37); Albumin 2.3 g/dL (3.4-5.0); Alkaline Phosphatase 253 U/L (46-116); Anion Gap 10.8 mmol/L (3-11); BUN 54 mg/dL (7-18); Bilirubin, Direct 0.26 mg/dL (0.00-0.20); Bilirubin, Total 1.1 mg/dL (0.2-1.0); CO2 27.2 mmol/L (21.0-32.0); CREATININE 2.81 mg/dL (0.70-1.30); Chloride 99 mmol/L (98-107); Estimated GFR 21.88 (mL/min/1.73m2); Glucose 94 mg/dL (74-106); Magnesium 1.8 mg/dL (1.8-2.4); Sodium 137 mmol/L (136-145); TSH (W/Ref FT4) 1.38 uIU/mL (0.36-3.74); Total Protein 5.7 g/dL (6.4-8.2)
[2020-03-25 07:47] LABS: Creatine Kinase 1325 U/L (39-308)
--- NOTE | 2020-03-25 08:00 | DI.US_ITS ---
APPROVED REPORT EXAM: Comprehensive 2D, Doppler, and color-flow Echocardiogram Patient Location: In-Patient Room/Bed: [facility] Senior Principal Software Engineer: Ingrid Overton RDCS (AE) Indications: H/O ICMO, CHF,Elevated troponin, CAD Other Information Study Quality: Fair. Technically limited study due to inability to position patient, uncooperative pa tient. Conclusion Normal left ventricular chamber size and wall thickness. Estimated ejection fraction is 50%. Unable to assess regional wall motion The right ventricle is normal in size Both atria are normal in size Arctic valve is not well visualized and appears sclerotic without stenosis or regurgitation Structurally normal mitral valve, mild mitral regurgitation Structurally normal tricuspid valve, trace regurgitation The pulmonic valve was not well visualized Mildly dilated ascending aorta Wall motion Left Ventricle The left ventricle is normal size. Left ventricular systolic function is borderline. There is normal left ventricular wall thickness. Cannot exclude regional wall motion abnormalities. There is no ventr icular septal defect visualized. LVEF is 50%. Right Ventricle The right ventricle is normal size. Right ventricular systolic function could not be assessed. The RV SP is 31.4 mmHg. Atria The left atrium size is normal. The right atrium size is normal. The interatrial septum is intact wit h no evidence for an atrial septal defect. Aortic Valve Not well visualized, appears sclerotic There is no aortic valvular stenosis. No aortic regurgitation is present. Mitral Valve The mitral valve is normal in structure. No evidence of mitral valve stenosis. Mild mitral regurgitat ion. Tricuspid Valve The tricuspid valve is normal in structure. There is no tricuspid valve stenosis. Trace tricuspid reg urgitation. Pulmonic Valve Pulmonic valve is not well visualized. There is no pulmonic valvular stenosis. There is no pulmonic v alvular regurgitation. Great Vessels The aortic root is normal in size. The ascending aorta is mildly dilated. Aortic arch is not well vis ualized. The IVC collapses <50% with normal inspiration. Pericardium There is no pericardial effusion. 2D Dimensions IVSD d PLAX 1.11 cm M: 0.6-1.2 LV Vol A2C d MOD 112.6 mL LVPW d PLAX 1.11 cm M: 0.6 - 1.2 LV Vol A4C d MOD 126.3 mL LVID d PLAX 5.43 cm M: 4.2 - 5.8 LA vol/ BSA A2C s A-L 13.2 mL/m2 LVDs 4.20 cm M: 2.5 - 4.0 LA vol/ BSA A4C s A-L 15.9 mL/m2 Ao Root d 3.05 cm M: 3.1 - 3.7 LA Vol/ BSA Biplane s A-L 14.6 mL/m2 Ao Asc Diam d 3.60 cm M: 2.6 - 3.4 LA Area A4C s MOD 12.31 cm2 LV EF Teichholz 44.4 % LA Area A2C s MOD 11.33 cm2 LVEF (Tapia's) 42.90 % M: 52 - 72 LV EF A4C MOD 45.2 % LV Volume 90.87 mL M: 62 - 150 LV EF A2C MOD 40.7 % LV Volume Index 47.32 mL/m2 M: 34 - 74 LV EF Biplane MOD 42.9 % LV Vol Biplane MOD 119.5 mL SV 51.28 mL FS 22.20 % SV Index 26.69 mL/m2 M-Mode TAPSE 1.93 cm (M/F) >1.7 LV Diastology MV E' medial 0.086 (>0.07 m/s) E/A Ratio 0.6 LV E/e MED 6.50 (<14) MV E Vmax 0.56 (0.4-1.3 m/s) MV E' lateral 0.111 (>0.1 m/s) MV A Vmax 0.95 (0.4-1.3 m/s) LV E/e LAT 5.00 (<14) MV E/A Ratio 0.56 MV E/E' medial 6.51 MV E/E' lateral 5.01 Aortic Valve LVOT Area 3.05 cm2 AoV Area Vmax 2.28 cm2 LVOT Vmax 1.00 m/s AoV Area/ BSA (Vmax) 1.19 cm2/m2 LVOT Mean Abelardo. 0.69 m/s TEE Mean Abelardo. 2.24 cm2 LVOT Peak Grad 4.0 mmHg TEE Mean Abelardo. Index 1.16 cm2/m2 LVOT Mean Grad 2.1 mmHg LVOT VTI 0.165 m LVOT Diam s 1.95 cm AoV Vmax 1.34 m/s Velocity Ratio 0.74 AoV Mean Abelardo. 0.94 m/s AoV Peak Grad 7.2 mmHg LVOT SV 50.32 mL AoV Mean Grad 3.9 mmHg AoV VTI 0.198 m AoV Area VTI 2.54 cm2 AoV Area/ BSA (VTI) 1.32 cm/m2 Mitral Valve MV DT 242 (160-240 msec) MV PHT 70 msec MV Area PHT 3.13 cm2 Pulmonary Valve PV Vmax 1.25 (0.5-1.5 m/s) RVOT Peak Gr. 2.03 mmHg PV Peak Grad 6.3 mmHg RVOT Mean Gr. 0.95 mmHg PV Mean Grad 3.8 mmHg RVOT VTI 0.082 m PV VTI 0.240 m RVOT Vmax 0.71 m/s Tricuspid Valve TR Peak Grad 23.4 mmHg TR Vmax 2.42 m/s RA Pressure 8.00 mmHg RVSP (TR) 31.4 mmHg
--- NOTE | 2020-03-25 08:28 | W.PM.PROGNOT ---
Date of Service Date of service: 03/25/20 Time of Service: 10:35 Assessment and Plan Assessment and plan (1) Acute kidney injury superimposed on chronic kidney disease: Status: Acute Assessment and plan: Due to rhabdomyolysis. Improved with IVF, but I am concerned about crackles I am hearing on the exam today. Slow down IVF. Continue to trend Cr, CPK. Obtain US renal. Hold statin, losartan. (2) Hypokalemia: Status: Acute Assessment and plan: Replete and recheck in am (3) Rhabdomyolysis: Status: Acute Assessment and plan: As above Consider seizure (4) Elevated troponin: Status: Acute Assessment and plan: in setting of ALESIA and rhabdo. Flat. No ACS on this admission. Continue cardiac monitoring due to EtOH withdrawal. (5) Acute dehydration: Status: Acute Assessment and plan: IVF as above (6) Leucocytosis: Status: Acute Assessment and plan: Most likely reactive to fall/rhabdomyolysis, but we are considering infectious etiologies as well. No evidence of UTI/PNA at this time. Will check procalcitonin. Continue IVF. No abx at this time. (7) Bladder neck contracture: Status: Acute Assessment and plan: s/p burgos by Dr Marshall. Will need outpatient follow up. (8) CAD (coronary artery disease): Status: Chronic Assessment and plan: No ACS on this admission. When safe to take PO, resume oral meds. (9) Hypertension: Status: Chronic Assessment and plan: hold ARB, metolazone Write for Prn IV lopressor as not tolerating PO meds this am. (10) Ischemic cardiomyopathy: Status: Chronic Assessment and plan: As above. EF with preserved EF on this admission. However, I am hearing crackles this morning - will slow down IVF and monitor pulmonary status carefully. (11) Alcohol dependence: Status: Chronic Assessment and plan: Switch to phenobarbital. Continue CIWA monitoring, vitamins to be included with banana bag. (12) DVT prophylaxis: Status: Acute Assessment and plan: Sc heparin (13) Discharge planning issues: Status: Acute Assessment and plan: DNR/DNI, per computer record. Keep in ICU. Total Critical Care Time 45 minutes. Subjective Subjective Interval history since last seen: Went into alcohol withdrawal last night. CIWA scores since admission 10 - 9 - 25 at midnight - 4 mg of ativan IV given - 2 - 2 -4 after that. 8-10 this am. Switched to phenobarbital this am. Nursing does not feel the patient can tolerate PO meds. Lethargic. A&Ox1 this am. Afebrile. No cough. 153/73. Garbled speech. Not reporting any pain, but cannot reliably answer questions to me this morning. 1st degree AV block on the monitor. UOP dark No pain. Exam Narrative Exam Narrative: General: elderly male, tremulous, confused, mildly tachypneic, no cyanosis on RA, not answering my questions, mumbling HEENT: EOMI, MMM Heart: RRR, tachycardic (90s) Lungs: crackles at B bases, R>L (bruise L posterior thorax noted) Abdomen: soft, nontender, nondistended Extremities: no e/c/c BLE's, trace pedal pulses B Objective Last Vital Signs Temp 36.3 C L 03/25/20 08:14 Pulse 88 03/25/20 08:14 Resp 19 03/25/20 08:14 BP 140/70 03/25/20 08:14 Pulse Ox 93 03/25/20 08:14 Laboratory Results - last 24 hr 03/24/20 03/24/20 03/24/20 13:58 13:58 13:58 WBC 14.39 H RBC 5.02 Hgb 16.3 Hct 48.9 MCV 97.4 H MCH 32.5 MCHC 33.3 RDW 14.2 H Plt Count 334 MPV 9.6 Immature Gran % 0.7 Neutrophils % 81.7 Lymphocytes % 8.2 Monocytes % 9.1 Eosinophils % 0.1 Basophils % 0.2 Nucleated RBC % 0 Absolute Neutrophils 11.76 H Absolute Lymphocytes 1.18 L Absolute Monocytes 1.31 H Absolute Eosinophils 0.01 Absolute Basophils 0.03 Sodium 133 L Potassium 3.1 L Chloride 92 L Carbon Dioxide 34.0 H Anion Gap 7.0 BUN 50 H Creatinine 2.91 H Estimated GFR/1.73 m2 21.01 Glucose 104 Calcium 9.3 Magnesium 2.2 Total Bilirubin 1.3 H Conjugated Bilirubin AST 90 H ALT 26 Alkaline Phosphatase 325 H Creatine Kinase 2761 H Troponin I 0.14 H* NT-Pro-B Natriuret Pep Total Protein 7.1 Albumin 3.0 L TSH Urine Color Urine Clarity Urine pH Ur Specific [place] Urine Protein Urine Ketones Urine Blood Urine Nitrite Urine Bilirubin Urine Urobilinogen Ur Leukocyte Esterase Urine RBC Urine WBC Ur Epithelial Cells Urine Crystals Urine Bacteria Urine Casts Urine Mucus Urine Other Ur Culture Indicated? Urine Glucose Urine Opiates Screen Urine Methadone Screen Ur Barbiturates Screen Ur Tricyclics Screen Ur Amphetamines Screen U Benzodiazepines Scrn Urine Cocaine Screen Ur THC Screen SARS-CoV-2 (PCR) [facility] COVID-19 PCR Ref Test Perform Site 03/24/20 03/24/20 03/24/20 15:04 15:04 15:12 WBC RBC Hgb Hct MCV MCH MCHC RDW Plt Count MPV Immature Gran % Neutrophils % Lymphocytes % Monocytes % Eosinophils % Basophils % Nucleated RBC % Absolute Neutrophils Absolute Lymphocytes Absolute Monocytes Absolute Eosinophils Absolute Basophils Sodium Potassium Chloride Carbon Dioxide Anion Gap BUN Creatinine Estimated GFR/1.73 m2 Glucose Calcium Magnesium Total Bilirubin Conjugated Bilirubin AST ALT Alkaline Phosphatase Creatine Kinase Troponin I NT-Pro-B Natriuret Pep Total Protein Albumin TSH Urine Color Yellow Urine Clarity Clear Urine pH 7.5 Ur Specific [place] 1.020 Urine Protein 100 H Urine Ketones Negative Urine Blood Moderate H Urine Nitrite Negative Urine Bilirubin Negative Urine Urobilinogen 0.2 Ur Leukocyte Esterase Negative Urine RBC 10-20 H Urine WBC 0-2 Ur Epithelial Cells Negative Urine Crystals Negative Urine Bacteria Rare Urine Casts Negative Urine Mucus Trace Urine Other Negative Ur Culture Indicated? No Urine Glucose Negative Urine Opiates Screen Negative Urine Methadone Screen Negative Ur Barbiturates Screen Negative Ur Tricyclics Screen Negative Ur Amphetamines Screen Negative U Benzodiazepines Scrn Negative Urine Cocaine Screen Negative Ur THC Screen Negative SARS-CoV-2 (PCR) Negative [facility] Not Applicable Ref Test Perform Site [facility] 03/24/20 03/24/20 03/25/20 17:18 17:18 00:17 WBC RBC Hgb Hct MCV MCH MCHC RDW Plt Count MPV Immature Gran % Neutrophils % Lymphocytes % Monocytes % Eosinophils % Basophils % Nucleated RBC % Absolute Neutrophils Absolute Lymphocytes Absolute Monocytes Absolute Eosinophils Absolute Basophils Sodium Potassium Chloride Carbon Dioxide Anion Gap BUN Creatinine Estimated GFR/1.73 m2 Glucose Calcium Magnesium Total Bilirubin Conjugated Bilirubin AST ALT Alkaline Phosphatase Creatine Kinase Troponin I 0.12 H* 0.12 H* NT-Pro-B Natriuret Pep 01783 H Total Protein Albumin TSH Urine Color Urine Clarity Urine pH Ur Specific [place] Urine Protein Urine Ketones Urine Blood Urine Nitrite Urine Bilirubin Urine Urobilinogen Ur Leukocyte Esterase Urine RBC Urine WBC Ur Epithelial Cells Urine Crystals Urine Bacteria Urine Casts Urine Mucus Urine Other Ur Culture Indicated? Urine Glucose Urine Opiates Screen Urine Methadone Screen Ur Barbiturates Screen Ur Tricyclics Screen Ur Amphetamines Screen U Benzodiazepines Scrn Urine Cocaine Screen Ur THC Screen SARS-CoV-2 (PCR) [facility] COVID-19 PCR Ref Test Perform Site 03/25/20 03/25/20 06:06 06:06 WBC 14.82 H RBC 3.99 L Hgb 13.2 L D Hct 39.1 L D MCV 98.0 H MCH 33.1 H MCHC 33.8 RDW 14.3 H Plt Count 222 D MPV 9.9 Immature Gran % 0.5 Neutrophils % 79.2 Lymphocytes % 10.2 Monocytes % 9.5 Eosinophils % 0.3 Basophils % 0.3 Nucleated RBC % 0 Absolute Neutrophils 11.74 H Absolute Lymphocytes 1.51 Absolute Monocytes 1.41 H Absolute Eosinophils 0.04 Absolute Basophils 0.04 Sodium 137 Potassium 3.0 L Chloride 99 Carbon Dioxide 27.2 Anion Gap 10.8 BUN 54 H Creatinine 2.81 H Estimated GFR/1.73 m2 21.88 Glucose 94 Calcium 8.0 L Magnesium 1.8 Total Bilirubin 1.1 H Conjugated Bilirubin 0.26 H AST 77 H ALT 23 Alkaline Phosphatase 253 H Creatine Kinase 1325 H Troponin I NT-Pro-B Natriuret Pep Total Protein 5.7 L Albumin 2.3 L TSH 1.38 Urine Color Urine Clarity Urine pH Ur Specific [place] Urine Protein Urine Ketones Urine Blood Urine Nitrite Urine Bilirubin Urine Urobilinogen Ur Leukocyte Esterase Urine RBC Urine WBC Ur Epithelial Cells Urine Crystals Urine Bacteria Urine Casts Urine Mucus Urine Other Ur Culture Indicated? Urine Glucose Urine Opiates Screen Urine Methadone Screen Ur Barbiturates Screen Ur Tricyclics Screen Ur Amphetamines Screen U Benzodiazepines Scrn Urine Cocaine Screen Ur THC Screen SARS-CoV-2 (PCR) [facility] COVID-19 PCR Ref Test Perform Site Objective Narrative Objective Narrative: CXR: Limited exam. No gross evidence of acute pulmonary findings. Echo: Normal left ventricular chamber size and wall thickness. Estimated ejection fraction is 50%. Unable to assess regional wall motion The right ventricle is normal in size Both atria are normal in size Arctic valve is not well visualized and appears sclerotic without stenosis or regurgitation Structurally normal mitral valve, mild mitral regurgitation Structurally normal tricuspid valve, trace regurgitation The pulmonic valve was not well visualized Mildly dilated ascending aorta
--- NOTE | 2020-03-25 08:35 | DI.RAD_ITS ---
EXAM: XR PORTABLE CHEST AP CLINICAL HISTORY: concern for aspiration pneumonia TECHNIQUE: 2D digital imaging was performed. COMPARISON: CR XR CHEST 2V PA LATERAL from 03/24/2020 FINDINGS: Exam was performed with the patient in a semi erect position. Leads overlie the chest. The lungs a re suboptimally inflated. There are mildly increased densities at the lung bases likely reflecting atelectasis. The heart is enlarged, unchanged. IMPRESSION: Limited exam. No gross evidence of acute pulmonary findings. DATA REPOSITORY: RADIATION DOSE DELIVERED:
--- NOTE | 2020-03-25 08:50 | NUR.NOTE ---
Chest x-ray is performed in room as well as echocardiogram.Nursing Note:
[2020-03-25] MEDS: POTASSIUM CHLORIDE 20 MEQ/100 ML BAG 50 MEQ IVPB ×2 (08:59→11:12)
[2020-03-25] MEDS: PHENobarbital 130 MG/ML VIAL IVP ×10 (09:28→22:31)
--- NOTE | 2020-03-25 10:50 | NUR.NOTE ---
agrees with RN that patient is too confused to take PO medications at this time.Nursing Note:
--- NOTE | 2020-03-25 10:56 | NUR.NOTE ---
Patient given 130mg of Phenobarbital for CIWA scale of 10.Nursing Note:
[2020-03-25] MEDS: Nystatin POWDER 60 GM JAR TP ×3 (11:24→20:28)
--- NOTE | 2020-03-25 11:25 | NUR.NOTE ---
Renal ultrasound is completed in room.Nursing Note:
[2020-03-25 12:46] LABS: Procalcitonin 0.5 ng/mL
--- NOTE | 2020-03-25 12:47 | NUR.NOTE ---
Patient is now sleeping with no episodes of agitation.Nursing Note:
[2020-03-25] MEDS: MAGNESIUM SULFATE 8.12 MEQ, MULTIVITAMIN 10 ML, THIAMINE 100 MG, FOLIC ACID 1 MG in Nor... 75 MG IV (13:32)
--- NOTE | 2020-03-25 14:17 | NUR.NOTE ---
RN gives telephonic update to patient's daughter. Daughter is very appreciative of same.Nursing Note:
--- NOTE | 2020-03-25 15:24 | PT.INNT ---
Date of service: 03/25/20 Time of Service: 15:24 PT Notes Visit Reasons: ALESIA DUE TO RHABDOMYOLYSIS, ELEVATED TROPONIN Joaquín remains in alcohol-induced delirium and is not appropriate for PT services after two attempts made today. Will plan on retrying patient tomorrow, as ordered. Dr. Moreno was made aware and is in agreement of said plan. Thank you for the opportunity to participate in the care of this patient. Krystin Serna PT, DPT, CLT [facility] [place], [place]
--- NOTE | 2020-03-25 15:58 | INITIAL_ITS ---
- If Service Date Differs Date of service: 03/25/20 Time of Service: 15:58 Care Management Initial Assess REASON FOR HOSPITALIZATION:: ALESIA on CKD. Rhabdomyolysis. rhabdomyolysis PAST MEDICAL HISTORY/PAST SURGICAL HISTORY:: Medical History (Updated 03/24/20 @ 16:56 by Mónica Moreno MD). Bladder neck contracture. CAD (coronary artery disease). Chronic kidney disease. Hypercholesterolemia. Hypertension. Ischemic cardiomyopathy. Prostate cancer. Surgical History . History of heart artery stent. S/P prostatectomy. Status post THR (total hip replacement) PREVIOUS FUNCTIONAL STATUS/SOCIAL/FAMILY SUPPORTS:: Joaquín lives alone in a studio apartment in [place], [place] He has a son Aiden who lives in [place], [place]. and is supportive. In addition, Joaquín ahs many friends in the area. He is independent at baseline and continues to drive. CURRENT FUNCTIONAL STATUS:: CM was unable to converse with Joaquín chacko as he is actively withdrawing from alcohol. His CIWA scores have been in the high teens (17-19) much of the day. CM did contact his son Aiden who states that Joaquín is not a heavy drinker. He stated that he maybe has 2 bottles of whiskey a month. Jabari says that he talks to his father nearly every day and that his friends are also in contact with him and would likely know if he were drinkng more. ADVANCE DIRECTIVES:: None on file. Aiden believes he would be the person to make decisions if Joaquín were unable to. Has patient been provided with info about the portal/API?: No Did the patient sign up for the portal?: No (confused) CODE STATUS:: DNR/DNI INSURANCE COVERAGE / FINANCIAL ISSUES:: Medicare. [facility] CURRENT HOME/COMMUNITY SERVICES/EQUIPMENT:: none PRIMARY CARE PHYSICIAN:: Taz Collins POTENTIAL DISCHARGE NEEDS:: follow up with PCP and discharge plan. Possibly substance abuse treatment PATIENT/FAMILY EDUCATION NEEDS:: Discharge plan, limitations, follow up plan, Ask Me Three TRANSPORTATION:: to be determined by disposition PLAN:: Joaquín remains in ICU heavily sedated while he is going through alcohol withdrawal. He has rhabdomyolysis, acute and chronic kidney disease and is being closely monitored. Discharge plans are not clear at this time. KAIT wwill continue to follow and support patient and family and address discharge planning needs.
--- NOTE | 2020-03-25 16:38 | NUR.NOTE ---
Patient is calm and sleeping restfully.Nursing Note:
[2020-03-25] MEDS: cefTRIAXone 2 GM/50 ML BAG IVPB (18:31)
--- NOTE | 2020-03-25 19:04 | NUR.NOTE ---
Vital signs stable. Patient calm and sleeping receiving 75ml/hr Bananna bag.Nursing Note:
[2020-03-26] VITALS (35 sets, daily range): BP systolic 120–164; BP diastolic 56–86; PULSE 72–129; RESP 16–28; TEMP 36–36.4; O2SAT 81–98
--- NOTE | 2020-03-26 | DI.US_ITS ---
EXAM: US ABDOMEN LIMITED CLINICAL HISTORY: concern for cholecystitis/intraabdominal infection TECHNIQUE: Ultrasound abdomen performed using standard protocol. COMPARISON: Prior renal ultrasound 03/25/2020 FINDINGS: There is no ascites evident. LIVER: There are no hepatic lesions evident nor dilatation of intrahepatic ducts. GALLBLADDER/BILIARY: There are no gallstones. No gallbladder wall edema nor pericholecystic fluid. The common hepatic duct isupper normal diameter, measuring 6mm at the level of emile hepatis. PANCREAS: There is no evidence of pancreatic mass nor dilatation of the pancreatic duct. RIGHT KIDNEY:No evidence of solid mass, calculus, nor hydronephrosis. No cortical cysts evident. ABDOMINAL AORTA AND IVC: There is an infrarenal abdominal aortic aneurysm which exhibits a diameter o f 3 cm IMPRESSION: 1. No evidence of cholelithiasis nor dilatation of the biliary tree. 2. No other significant ultrasound findings in the right upper quadrant. 3. There is an infrarenal fusiform abdominal aortic aneurysm which exhibits diameter of 3 cm. DATA REPOSITORY:
[2020-03-26] MEDS: PHENobarbital 130 MG/ML VIAL IVP ×5 (00:40→21:54)
[2020-03-26] MEDS: Heparin 5,000 UNITS/ML VIAL 5000 UNITS SC ×3 (02:18→19:04)
[2020-03-26] MEDS: Normal Saline Flush 10 ML SYR IVP ×2 (02:28→21:53)
[2020-03-26] MEDS: Normal Saline 1,000 ML 75 ML IV (03:42)
[2020-03-26 07:04] LABS: Abs Immature Grans 0.09 10^3/uL (0.0-0.06); Absolute Basophil Count 0.05 10^3/uL (0.0-0.2); Absolute Eosinophil Count 0.19 10^3/uL (0.0-0.7); Absolute Lymphocyte Count 1.29 10^3/uL (1.2-3.4); Absolute Monocyte Count 1.05 10^3/uL (0.1-0.8); Basophils % 0.4; Eosinophils % 1.6; HCT 43.3 % (40.0-50.0); HGB 14.1 g/dL (13.5-17.5); Immature Grans % 0.7; Lymphocytes % 10.7; MCH 32.6 pg (27.0-33.0); MCHC 32.6 % (32.0-36.0); MCV 100.2 fL (80-95); MPV 9.5 fL (8.0-11.0); Monocytes % 8.7; Neutrophils % 77.9; Nucleated RBC 0 %; Platelet Count 189 10^3/uL (130-400); RBC 4.32 10^6/uL (4.36-5.78); RDW 14.1 % (11.8-14.1); RDW-SD 52.1 fL; WBC 12.05 10^3/uL (4.4-10.8)
[2020-03-26 07:07] LABS: Absolute Neutrophil Count 9.39 10^3/uL (1.2-6.7)
[2020-03-26 07:24] LABS: Anion Gap 9.7 mmol/L (3-11); BUN 43 mg/dL (7-18); CO2 26.3 mmol/L (21.0-32.0); Calcium 8.5 mg/dL (8.5-10.1); Chloride 104 mmol/L (98-107); Estimated GFR 39.07 (mL/min/1.73m2); Glucose 72 mg/dL (74-106); Magnesium 2.1 mg/dL (1.8-2.4); Potassium 3.5 mmol/L (3.5-5.1); Sodium 140 mmol/L (136-145)
[2020-03-26] MEDS: Nystatin POWDER 60 GM JAR TP ×3 (08:00→20:18)
--- NOTE | 2020-03-26 08:23 | PGE_ITS ---
Date of Service Date of service: 03/26/20 Time of Service: 11:24 Assessment and Plan Assessment and plan (1) Acute hyperactive alcohol withdrawal delirium: Status: Acute Assessment and plan: The patient is near max of phenobarbital dose. If remains agitated, would manage delirium with seroquel. We are looking for other sources of delirium - specifically, any infection, given leucocytosis and elevation of procalcitonin. Intraabdominal source of infection needs to be considered, and US RUQ is ordered. Check ABG to ensure the patient does not require respiratory support while receiving treatment for EtOH withdrawal. (2) Acute kidney injury superimposed on chronic kidney disease: Status: Acute Assessment and plan: Due to rhabdomyolysis. CPK down to 449 with IVF. Continue gentle IVF. Continue to trend Cr. Hold statin, losartan. US renal without hydronephrosis. (3) Rhabdomyolysis: Status: Resolved Assessment and plan: As above Consider seizure (4) Hypokalemia: Status: Resolved Assessment and plan: recheck in am (5) Elevated troponin: Status: Acute Assessment and plan: in setting of ALESIA and rhabdo. Flat. No ACS on this admission. Rechecking EKG this am. Continue cardiac monitoring due to EtOH withdrawal. (6) Acute dehydration: Status: Acute Assessment and plan: IVF as above (7) Leucocytosis: Status: Acute Assessment and plan: Most likely reactive to fall/rhabdomyolysis, but we are considering infectious etiologies as well. Procalcitonin is elevated. THere is no evidence of meningitis - patient has no neck rigidity and at no point did he report a headache. Check US RUQ to r/o cholecystitis. No evidence of UTI/PNA at this time. Await blood culture results. Continue empiric ceftriaxone (started yesterday). Consider CT abdomen if US RUQ does not answer the question. Recheck procalcitonin tomorrow. Continue IVF. (8) Bladder neck contracture: Status: Acute Assessment and plan: s/p burgos by Dr Marsahll. Bleeding around catheter - await urology follow up. (9) CAD (coronary artery disease): Status: Chronic Assessment and plan: No ACS on this admission. EKG is being checked this am. When safe to take PO, resume oral meds. (10) Hypertension: Status: Chronic Assessment and plan: hold ARB, metolazone Prn IV lopressor as not tolerating PO meds this (too sedated). (11) Ischemic cardiomyopathy: Status: Chronic Assessment and plan: As above. EF with preserved EF on this admission. Tolerating IVF. Continue to monitor respiratory status while hydrating. (12) Alcohol dependence: Status: Chronic Assessment and plan: Continue banana bag, phenobarbital for withdrawal - consider seroquel should he remain agitated (13) Penile bleeding: Status: Acute Assessment and plan: Minimal, but persistent. Consult Uroogy. (14) DVT prophylaxis: Status: Acute Assessment and plan: Sc heparin (15) Discharge planning issues: Status: Acute Assessment and plan: DNR/DNI, per computer record. Keep in ICU. Total Critical Care Time 45 minutes. Subjective Subjective Interval history since last seen: Mr Yuan is asleep with abdominal breathing. He was able to work with PT. He cannot answer my questions now. CIWA scores 18, 22, 15, 15, 15, 15 overnight. Got phenobarbital 6 x overnight. Soft wrist restraints at 11 pm (agitated, swinging,pulling on catheter). Blood around catheter noted by nursing. This am, garbled speech, pupils pinpoint prior to falling asleep. Afebrile, 141/70, HR 80 - SR, O2 sats 90% on RA, RR 20 with belly breathing, frequent PVCs on monitor with underlying sinus rhythm. Lungs clear. Exam Narrative Exam Narrative: General: elderly male, asleep in the bed, abdominal breathing pattern noted HEENT: eyes closed, MMM Heart: RRR with occasional extra beats Lungs: CTAB Abdomen: soft, nontender, nondistended Extremities: no e/c/c BLE's, trace pedal pulses B Objective Last Vital Signs Temp 36.3 C L 03/26/20 04:07 Pulse 98 H 03/26/20 06:00 Resp 24 03/26/20 06:01 BP 164/85 H 03/26/20 06:00 Pulse Ox 94 03/26/20 06:01 Laboratory Results - last 24 hr 03/25/20 03/26/20 03/26/20 06:06 06:18 06:18 WBC 12.05 H RBC 4.32 L Hgb 14.1 Hct 43.3 MCV 100.2 H MCH 32.6 MCHC 32.6 RDW 14.1 Plt Count 189 MPV 9.5 Immature Gran % 0.7 Neutrophils % 77.9 Lymphocytes % 10.7 Monocytes % 8.7 Eosinophils % 1.6 Basophils % 0.4 Nucleated RBC % 0 Absolute Neutrophils 9.39 H Absolute Lymphocytes 1.29 Absolute Monocytes 1.05 H Absolute Eosinophils 0.19 Absolute Basophils 0.05 Sodium 140 Potassium 3.5 Chloride 104 Carbon Dioxide 26.3 Anion Gap 9.7 BUN 43 H D Creatinine 1.70 H D Estimated GFR/1.73 m2 39.07 Glucose 72 L Calcium 8.5 Magnesium 2.1 Procalcitonin 0.5 Objective Narrative Objective Narrative: CXR: Limited exam. No gross evidence of acute pulmonary fi ndings. echo: Normal left ventricular chamber size and wall thickness. Estimated ejection fraction is 50%. Unable to assess regional wall motion The right ventricle is normal in size Both atria are normal in size Arctic valve is not well visualized and appears sclerotic without stenosis or regurgitation Structurally normal mitral valve, mild mitral regurgitation Structurally normal tricuspid valve, trace regurgitation The pulmonic valve was not well visualized Mildly dilated ascending aorta US renal; Limited exam. Left renal cysts. No evidence of hydronephrosis.
[2020-03-26 09:19] LABS: Creatine Kinase 449 U/L (39-308)
--- NOTE | 2020-03-26 09:40 | CMPROGNOTE_ITS ---
Care Management Progress Note S/O: Joaquín remains in ICU on CIWA protocol; being monitored and treated for alcohol withdrawal, rhabdomyolysis, acute and chronic kidney disease. CM continues to follow. A: 79 year old male admitted to [facility] 03/24/19 for ALESIA due to rhabdomyolysis and elevated troponin P: Joaquín remains in ICU at this time; undetermined discharge plan. CM will continue to follow and support patient and family and address discharge planning needs.
--- NOTE | 2020-03-26 10:56 | IN_ITS ---
Date of service: 03/26/20 PT Notes Visit Reasons: ALESIA DUE TO RHABDOMYOLYSIS, ELEVATED TROPONIN Physical Therapy Inpatient Initial Evaluation Date: 03/26/2020 Referring Doctor: Mónica Moreno MD PT Orders: PT CONSULT: Limited ability Precautions: Fall. Standard. Activity as tolerated. Patient Profile/Admitting Diagnosis: Joaquín is a 79-year-old male with CAD, HTN, and ischemic cardiomyopathy who was brought in to the ED by EMS on 03/24/2019. Patient was found on floor by EMS personnel during a welfare check after 3 days of being inaccessible. Patient is diagnosed with bladder neck contracture, acute kidney injury superimposed on chronic kidney disease, rhabdomyolysis, elevated troponin, acute dehydration, and EtOH dependence. PMHX: Medical History (Updated 03/24/20 @ 16:56 by Mónica Moreno MD) Bladder neck contracture CAD (coronary artery disease) Chronic kidney disease Hypercholesterolemia Hypertension Ischemic cardiomyopathy Prostate cancer Surgical History History of heart artery stent S/P prostatectomy Status post THR (total hip replacement) Social History/Home Situation: Unable to extract information from patient at this time due to decreased level of alertness. Please see care management notes. Equipment Owned/DME: Unknown at this time Subjective: Joaquín required significant stimulation to awaken as he remains lethargic. Nurse Jessica attempted to wake up patient early in the morning around 8:30 AM but patient was somnolent. An attempt later in the morning proved more successful as patient was able to open his eyes and respond to another attempt at mobilizing patient. Objective: General Observation: Supine in bed. Patient appearing somnolent. Telemetry monitoring in place. Garcia catheter in place. Soft restraints to bilateral UEs in place. Nurse Lopez and JUSTIN Robles available to assist for safety. Mental Status: Less somnolent later in the morning. Able to follow single step commands with 1-2 repetitions Pain: None reported but did express discomfort on the perineal area at the insertion of the Garcia catheter Vital Signs: Oxygen saturation stayed above 90% throughout session. Rate ranged from 75 to 110 bpm throughout. ROM: Right Upper Extremity: Grossly WFL Left Upper Extremity: Grossly WFL Right Lower Extremity: Grossly WFL Left Lower Extremity: Grossly WFL Strength: Right Upper Extremity: Grossly 3-/5 Left Upper Extremity: Grossly 3-/5 Right Lower Extremity: Grossly 3-/5 Left Lower Extremity: Grossly 3-/5 Sensation: Intact as to pain and pressure on bilateral lower extremities. Bed Mobility/Transfers: Supine to sit moderate assist of 2 with HOB at 45 degrees Sit to supine moderate assist of 2 with HOB at 45 degrees Sit to stand moderate assist of 2 Stand to sit moderate assist of 2 Bed to chair NT. Unsafe at this time due to decreased alertness. Chair to bed NT. Unsafe at this time due to decreased alertness. Gait: PT and JUSTIN Robles were able to assit patient with sidestepping x small 4 steps to come close to HOB with moderate assist of 2 with maximal verbal, tactile and visual cueing provided for safety. Balance: Static Sitting: Poor Dynamic Sitting: Poor Static Standing: Poor Dynamic Standing: Poor Special Tests: Mobility Limitations Standardized Measure [facility] AM-PAC 6 clicks Basic Mobility Inpatient Short Form: Raw Score: 6 CMS Score: 100% deficit Informed Consent/Education: Patient instructed in purpose of PT consult and p tabitha of care. Assessment: Joaquín try mobility decline and decreased level of alertness/somnolence due to admitting diagnosis. He requires extensive assist for all bed mobility and transfer task performance for safety. This in order to gradually facilitate increase in mobility independence as tolerated. Patient presents with clinical signs and symptoms consistent with current/admitting diagnoses that have resulted to mobility limitations, gait instability, generalized weakness, and impairment of motor control as demonstrated by the following impairment level findings: 1. Decreased strength to BUE/LE major muscle groups 2. Impaired sitting/standing balance 3. Impaired activity tolerance 4. Limitation of joint range of motion in BUE/LE 5. Somnolence Impairments are contributing to the following functional limitations: 1. Dependent bed mobility skills 2. Increased dependence with transfers 3. Inability to safely ambulate without assistive device and physical assistance 4. Increase completion time for mobility ADL performance 5. Increased fall risk 6. Inability to negotiate steps alone safely Patient is assessed as a 06248 high complexity based on the following: History: 79-year-old male with impairment level findings, functional limitations, and past medical history as indicated above Examination: Demonstrable impairment in strength, balance, and mobility level with underlying impairments and functional limitations as documented above Presentation:Evolving Decision Makin high complexity Goals: Goals X1 week 1. Supine-Sit minimal assist 2. Sit-Supine minimal assist 3. Sit-Stand minimal assist 4. Stand-Sit minimal assist 5. Bed-Chair minimal assist 6. Chair-Bed minimal assist 7. Minimal assist gait on level surface with use of least restrictive device for at least 300 feet without report of pain nor dyspnea 8. minimal assiststair negotiation while holding onto bilateral rails for at least 10 steps without report of pain nor dyspnea 9. Fair static and dynamic standing balance/tolerance Plan of Care/Treatment Plan: 1-2x/day, 7 days/week x 1 week. Plan of care has been reviewed with the WRAPPER LEAF INSPECTOR providing the service under Physical Therapy direction. Initiate Physical Therapy intervention for strengthening, bed mobility, transfers, gait, stairs, balance training, use of assistive device. DISCHARGE RECOMMENDATIONS: Patient will benefit from fdc facility placement for continued skilled physical therapy services in order to progress mobility level, strength, and balance in preparation for a safe discharge to home. TREATMENT CODE/TIME: 17893 x 24 minutes beginning at 10:56 AM. Thank you for the opportunity to participate in the care of this patient. Krystin Serna PT, DPT, CLT [facility] [place], [place]
--- NOTE | 2020-03-26 11:15 | RT.EKG_ITS ---
APPROVED REPORT Exam: Resting ECG Patient Location: I HR:94 bpm ECG Measurements Heart Rate 94 AXIS UT 215 P 30 QRSd 137 QRS -43 QT 416 T 33 QTc 521 Conclusion Sinus rhythm...normal P axis, V-rate 60- 99 Ventricular bigeminy...bigeminy string>4 w/ V complexes Prolonged UT interval...UT >215, V-rate 91-120 Right bundle branch block...QRSd>120, terminal axis(90,270) Inferior infarct, old...Q >35mS, II III aVF
--- NOTE | 2020-03-26 11:50 | PHA.REVIEW ---
Pharmacy Admission Review - Admission Clinical Review (Last Updated 03/24/20 @ 15:07 by Alex Marshall MD) Penile bleeding (Acute) Acute hyperactive alcohol withdrawal delirium (Acute) Leucocytosis (Acute) Discharge planning issues (Acute) DVT prophylaxis (Acute) Elevated troponin (Acute) Acute dehydration (Acute) Acute kidney injury superimposed on chronic kidney disease (Acute) Bladder neck contracture (Acute) amlodipine Adverse Reaction (Intermediate, Unverified 03/24/20 14:04) Swelling/Edema enalapril maleate [From Vasotec] Adverse Reaction (Intermediate, Unverified 03/24/20 14:04) cough enalaprilat dihydrate [From Vasotec] Adverse Reaction (Intermediate, Unverified 03/24/20 14:04) cough Height 5 ft 6 in Weight 80.3 kg ALESIA, RHABDO, ALC WITHDRAWL - Comments Comments/Follow Ups: Using Phenobarbital for withdrawl. overnight patient almost reached hard stop dosing of 30mg/kg (rec'd 2210mg, max would be 2400mg). MD aware.Using RASS scale in addition to CIWA. Emcrit project recommeds alternative treatment for dilirium without any more Benzo's ie: Seroquel, Haldol, Clonidine) CIWA was 25 at the highest overnight. Currently 5. Procalcitonin 0.5 from unknown source, WBC 12.05, started Rocephin 2gram last evening, cultures pending. ALESIA improving, not getting many oral meds, will need BP control - Renal Dosing Renal Dosing: BUN 43 mg/dL (7-18) H D 03/26/20 06:18 Creatinine 1.70 mg/dL (0.70-1.30) H D 03/26/20 06:18 improved from initial 2.91 Medications needing adjustments: Intervened (Allopurinol dose reduced, MD does not want to stop therapy, although hasn't rec'd any doses) - Anticoagulation Anticoagulation: Hgb 14.1 g/dL (13.5-17.5) 03/26/20 06:18 Hct 43.3 % (40.0-50.0) 03/26/20 06:18 Plt Count 189 10^3/uL (130-400) 03/26/20 06:18 Creatinine 1.70 mg/dL (0.70-1.30) H D 03/26/20 06:18 DVT Prohphylaxis: Reviewed Medications: Heparin - Relevant Labs Sodium 140 mmol/L (136-145) 03/26/20 06:18 Potassium 3.5 mmol/L (3.5-5.1) 03/26/20 06:18 Chloride 104 mmol/L (98-107) 03/26/20 06:18 Magnesium 2.1 mg/dL (1.8-2.4) 03/26/20 06:18 Potassium 20meq ordered but not being given due to sedation/sleeping, Probnp elevated, Creatinine kinase coming down from Rhabdo - DM Control DM Control: Glucose 72 mg/dL (74-106) L 03/26/20 06:18 - Heart Failure/NH Heart Failure/NH: Troponin I 0.12 ng/mL (<0.06) H* 03/25/20 00:17 NT-Pro-B Natriuret Pep 04997 pg/mL (<300) H 03/24/20 17:18 EF%, CHARIS's, B-Blockers, Diuretics: Reviewed (Metoprolol Ivp, Ntg...positive troponin likely from ALESIA, Rhabdo) - BP Control BP Control: Blood Pressure [Left Arm] 148/86 Blood Pressure [Left Arm] 138/77 Blood Pressure 164/85 Blood Pressure 141/70 Blood Pressure 148/86 Blood Pressure 121/68 Blood Pressure 147/80 Blood Pressure 138/77 If elevated: Reviewed (has missed daily doses of Toprol due to sedation, not alert enough to take, has Metoprolol ivp if needed) - Qtc Review If Elevated: Reviewed (Initial QTC 503 abnormal, positive Troponin, A-flutter?) - IV to PO Switch IV Medications: Reviewed (Antibiotics when appropriate) - Home Meds Home Med List reviewed: Reviewed Relevent Home Meds Not ordered & why?: Atorvastatin-held for Rhabo, Lasix, Losartan, Magnesium, Metolazone, not taking much by mouth due to withdrawls - Comments Comments/Follow Ups: Abd ultrasound pending for potential infectious site, DAILY BANANA BAG Antibiotic Activity - Pharmacy Antibiotic Review Pharmacy Antibiotic Activity: C/S review - Antibiotic Information Antibiotic Review Info: Ceftriaxone day #2 from unknown source, Procal 0.5, Micro pending
[2020-03-26 12:12] LABS: Ammonia < 10 umol/L (11-32)
[2020-03-26 12:45] LABS: BE 2 mmol/L (-2-3); HCO3 26 mmol/L (22-26); pCO2 41 mmHg (35-45); pH 7.41 (7.35-7.45); pO2 64 mmHg (80-105); sO2 92 % (95-98); tCO2 24 mmol/L (23-27)
[2020-03-26 12:47] LABS: FIO2 21 %; Site Left Radial
--- NOTE | 2020-03-26 12:58 | PTTR_ITS ---
Date of service: 03/26/20 PT Notes Visit Reasons: ALESIA DUE TO RHABDOMYOLYSIS, ELEVATED TROPONIN Physical Therapy Inpatient Treatment Note Date: 03/26/2020 Precautions: Fall. Standard. Activity as tolerated. Subjective: Joaquín required less stimulation by Nurse Jessica to awaken for the afternoon session. Denies any pain and appeared more able to do more during this session. Objective: General Observation: Supine in bed. Patient more alert and faster to respond to instructions. Telemetry monitoring in place. Garcia catheter in place. Soft restraints to bilateral UEs in place. Nurse Jessica and JUSTIN Robles available to assist for safety. Mental Status: Significantly less lethargic in the afternoon. Able to follow single-step commands with 1-2 repetitions Pain: None reported but continues to express discomfort on the perineal area at the insertion of the Garcia catheter. Bed Mobility/Transfers: Supine to sit moderate assist of 2 with HOB at 45 degrees Sit to supine moderate assist of 2 with HOB at 45 degrees Sit to stand moderate assist of 2 Stand to sit moderate assist of 2 Bed to chair moderate assist of 2 Chair to bed moderate assist of 2 Gait: PT and JUSTIN Robles were able to assist patient with in-room ambulation of up to 6 steps, 1 turn and 2 step backs using the FWW with maximal verbal, tactile, and visual cueing provided for safety from edge of bed to chair. Balance: Static Sitting: Poor Dynamic Sitting: Poor Static Standing: Poor Dynamic Standing: Poor Assessment: Joaquín is more alert and is able to participate with mobility training in the afternoon with assistance of Nurse Lopez and JUSTIN Burns, maximum verbal, tactile, and visual cueing needed for sequence and safety. He will continue to benefit from PT services to progress strength, balance, and mobility level. DISCHARGE RECOMMENDATIONS: Patient will benefit from shelter facility placement for continued skilled physical therapy services in order to progress mobility level, strength, and balance in preparation for a safe discharge to home. TREATMENT CODE/TIME: 96882 x 23 minutes beginning at 12:58 PM.
[2020-03-26] MEDS: MAGNESIUM SULFATE 8.12 MEQ, MULTIVITAMIN 10 ML, THIAMINE 100 MG, FOLIC ACID 1 MG in Nor... 75 MG IV (13:38)
--- NOTE | 2020-03-26 13:50 | W.NUTRFU ---
Date of service: 03/26/20 Time of Service: 13:50 Nutritional Follow up NOTE: 79 year old male admitted with hyperactive ETOH withdrawal delirium with hypokalemia and CKD. Supplemented with MVI, thiamin, folic acid for repletion. Has been too somnulent to eat or drink since admit, receiving IV fluids. BMI indicates overweight status. Will continue to follow. Time Spent in Nutritional Counseling and Treatment: 0
--- NOTE | 2020-03-26 14:13 | W.PM.PROGNOT ---
Date of Service Date of service: 03/26/20 Time of Service: 14:13 Assessment and Plan Assessment and plan (1) Penile bleeding: Status: Acute Assessment and plan: This gentleman has urethral trauma from unsuccessful catheterization attempts as well as urethral dilation of his bladder neck contracture. These patients tend to have blood around the catheter rather than in the urine itself. The urethral mucosa should heal in a week or so. While the catheter is in place, I would not be surprised by the blood around the catheter. If we remove the catheter, I do not believe he will have difficulty with clot retention. We might, however, see initial hematuria as the urine pushes out the blood products ahead of the urinary stream. Subjective Subjective Interval history since last seen: The patient has been identified as having blood around the urethral meatus. He has a Garcia catheter in place, but the staff has not been seen blood in the drainage bag. Exam Narrative Exam Narrative: He is uncircumcised There is a Garcia catheter in place with blood at the urethral meatus. Urine itself is clear with no gross blood or clots Objective Last Vital Signs Temp 36.4 C L 03/26/20 09:46 Pulse 98 H 03/26/20 13:51 Resp 22 03/26/20 13:51 BP 136/77 03/26/20 13:51 Pulse Ox 96 03/26/20 13:02 Laboratory Results - last 24 hr 03/26/20 03/26/20 03/26/20 06:18 06:18 11:50 WBC 12.05 H RBC 4.32 L Hgb 14.1 Hct 43.3 MCV 100.2 H MCH 32.6 MCHC 32.6 RDW 14.1 Plt Count 189 MPV 9.5 Immature Gran % 0.7 Neutrophils % 77.9 Lymphocytes % 10.7 Monocytes % 8.7 Eosinophils % 1.6 Basophils % 0.4 Nucleated RBC % 0 Absolute Neutrophils 9.39 H Absolute Lymphocytes 1.29 Absolute Monocytes 1.05 H Absolute Eosinophils 0.19 Absolute Basophils 0.05 ABG Sample Site ABG pH ABG pCO2 ABG pO2 ABG HCO3 ABG Total CO2 ABG O2 Saturation ABG Base Excess FiO2 Sodium 140 Potassium 3.5 Chloride 104 Carbon Dioxide 26.3 Anion Gap 9.7 BUN 43 H D Creatinine 1.70 H D Estimated GFR/1.73 m2 39.07 Glucose 72 L Calcium 8.5 Magnesium 2.1 Ammonia < 10 L Creatine Kinase 449 H 03/26/20 12:39 WBC RBC Hgb Hct MCV MCH MCHC RDW Plt Count MPV Immature Gran % Neutrophils % Lymphocytes % Monocytes % Eosinophils % Basophils % Nucleated RBC % Absolute Neutrophils Absolute Lymphocytes Absolute Monocytes Absolute Eosinophils Absolute Basophils ABG Sample Site Left radial ABG pH 7.41 ABG pCO2 41 ABG pO2 64 L ABG HCO3 26 ABG Total CO2 24 ABG O2 Saturation 92 L ABG Base Excess 2 FiO2 21 Sodium Potassium Chloride Carbon Dioxide Anion Gap BUN Creatinine Estimated GFR/1.73 m2 Glucose Calcium Magnesium Ammonia Creatine Kinase
[2020-03-26] MEDS: Haloperidol 5 MG/ML VIAL 4 MG IM (23:39)
[2020-03-26] MEDS: Acetaminophen 650 MG SUPP PR (23:39)
[2020-03-27] VITALS (35 sets, daily range): BP systolic 116–179; BP diastolic 67–99; PULSE 64–120; RESP 12–23; TEMP 36.1–36.8; O2SAT 90–100
[2020-03-27] MEDS: Heparin 5,000 UNITS/ML VIAL 5000 UNITS SC ×3 (01:50→18:06)
[2020-03-27] MEDS: PHENobarbital 130 MG/ML VIAL IVP ×2 (02:40→03:29)
[2020-03-27] MEDS: Normal Saline 1,000 ML 75 ML IV (04:07)
[2020-03-27] MEDS: Haloperidol 5 MG/ML VIAL 4 MG IM (05:53)
[2020-03-27 07:22] LABS: Abs Immature Grans 0.09 10^3/uL (0.0-0.06); Absolute Basophil Count 0.05 10^3/uL (0.0-0.2); Absolute Eosinophil Count 0.25 10^3/uL (0.0-0.7); Absolute Lymphocyte Count 1.13 10^3/uL (1.2-3.4); Absolute Monocyte Count 0.96 10^3/uL (0.1-0.8); Absolute Neutrophil Count 6.26 10^3/uL (1.2-6.7); Basophils % 0.6; Eosinophils % 2.9; HCT 38.5 % (40.0-50.0); HGB 12.4 g/dL (13.5-17.5); Lymphocytes % 12.9; MCH 32.8 pg (27.0-33.0); MCHC 32.2 % (32.0-36.0); MCV 101.9 fL (80-95); MPV 9.3 fL (8.0-11.0); Neutrophils % 71.6; Nucleated RBC 0 %; Platelet Count 178 10^3/uL (130-400); RBC 3.78 10^6/uL (4.36-5.78); RDW 14.3 % (11.8-14.1); RDW-SD 53.2 fL; WBC 8.74 10^3/uL (4.4-10.8)
--- NOTE | 2020-03-27 07:59 | PDOC.CMPRO ---
Care Management Progress Note S/O: Joaquín remains in ICU on CIWA protocol; being monitored and treated for alcohol withdrawal, rhabdomyolysis, acute and chronic kidney disease. He has been able to stand, and sit for very brief moments with the support of MINE UTILITY OPERATOR and PT. Jessica RN reports Joaquín is only alert for moments at a time, and is likely still clearing sedating medications. CM attempted contact with sonAiden at RN and MD request; left VM. CM continues to follow. A: 79 year old male admitted to [facility] 03/24/19 for ALESIA due to rhabdomyolysis and elevated troponin P: Joaquín remains in ICU at this time; undetermined discharge plan. CM will continue to follow and support patient and family and address discharge planning needs.
--- NOTE | 2020-03-27 08:02 | DI.VRAD_ITS ---
PROCEDURE INFORMATION: Exam: US Abdomen, Limited; Right Upper Quadrant Exam date and time: 03/26/2020 3:22 PM Age: 79 years old Clinical indication: Other: Concern for cholecystitis/ intraabdominal infection TECHNIQUE: Imaging protocol: US abdomen. Real time ultrasound with image documentation. Limited exam focused on the right upper quadrant. COMPARISON: US RENAL 03/25/2020 11:04 AM FINDINGS: Liver: Normal. No masses. Gallbladder: The gallbladder appears normal. No stones are seen. The gallbladder wall measures 1.7 mm. Common bile duct: The bile ducts are normal with a diameter of the common duct at 6 mm. Pancreas: Visualized pancreas is unremarkable. Right kidney: Normal. No mass. No hydronephrosis. Aorta: There is mild aneurysmal dilatation of the infrarenal abdominal aorta with a diameter of 3.0 cm. Inferior vena cava: The inferior vena cava is unremarkable. IMPRESSION: 1. Normal gallbladder and bile ducts. 2. Mild aneurysmal dilatation of the distal abdominal aorta with a diameter of 3.0 cm. Dictated and Authenticated by: Aiden Pittman MD. Ordering:JANAE Sales MD
[2020-03-27 08:03] LABS: Anion Gap 10.1 mmol/L (3-11); BUN 38 mg/dL (7-18); CO2 25.9 mmol/L (21.0-32.0); CREATININE 1.3 mg/dL (0.70-1.30); Calcium 8.7 mg/dL (8.5-10.1); Chloride 108 mmol/L (98-107); Estimated GFR 53.25 (mL/min/1.73m2); Glucose 75 mg/dL (74-106); Magnesium 2.4 mg/dL (1.8-2.4); Potassium 3.3 mmol/L (3.5-5.1); Sodium 144 mmol/L (136-145)
[2020-03-27 08:04] LABS: Troponin I 0.08 ng/mL (<0.06)
--- NOTE | 2020-03-27 08:22 | W.PM.PROGNOT ---
Date of Service Date of service: 03/27/20 Time of Service: 11:33 Assessment and Plan Assessment and plan (1) Acute hyperactive alcohol withdrawal delirium: Status: Acute Assessment and plan: Maxed out on phenobarbital. If remains agitated, would manage delirium with seroquel/haldol. No evidence of source of infection (could be contributing to delirium), but procalcitonin is coming down on empiric ceftriaxone. Blood cultures are negative. US RUQ negative. CXR/UA negative. Continue empiric ceftriaxone. Watch respiratory status - concern for aspiration. Strict NPO. (2) Acute kidney injury superimposed on chronic kidney disease: Status: Resolved Assessment and plan: Due to rhabdomyolysis (CPK 352; resolved). Cr is better than baseline (1.3). Continue gentle IVF primarily because the patient is NPO. Continue to trend Cr. Hold statin, losartan. US renal without hydronephrosis. (3) Rhabdomyolysis: Status: Resolved Assessment and plan: As above Consider seizure (4) Hypokalemia: Status: Acute Assessment and plan: Replete, recheck in am (5) Elevated troponin: Status: Acute Assessment and plan: in setting of ALESIA and rhabdo. Flat. No ACS on this admission. Continue cardiac monitoring due to EtOH withdrawal. (6) Acute dehydration: Status: Chronic Assessment and plan: Continue IVF as NPO (7) Leucocytosis: Status: Resolved Assessment and plan: Most likely reactive to fall/rhabdomyolysis, but we are considering infectious etiologies as well as procalcitonin was elevated and is coming down with empiric ceftriaxone. THere is no evidence of meningitis - patient has no neck rigidity and at no point did he report a headache. No cholecystitis. No evidence of UTI/PNA at this time. Blood cultures negative. Continue empiric ceftriaxone (day 3). Procalcitonin to guide therapy since we do not know the source. (8) Bladder neck contracture: Status: Acute Assessment and plan: s/p burgos by Dr Marshall. Bleeding around catheter. D/c burgos/VT only with Dr Marshall in - Monday at the earliest. (9) CAD (coronary artery disease): Status: Chronic Assessment and plan: No ACS on this admission. When safe to take PO, resume oral meds. (10) Hypertension: Status: Chronic Assessment and plan: hold ARB, metolazone Prn IV lopressor as not tolerating PO meds this (too sedated). (11) Ischemic cardiomyopathy: Status: Chronic Assessment and plan: As above. EF with preserved EF on this admission. Tolerating IVF. Continue to monitor respiratory status while hydrating. (12) Alcohol dependence: Status: Chronic Assessment and plan: Continue banana bag. Maxed out on phenobarbital. As above. (13) Penile bleeding: Status: Acute Assessment and plan: Minimal, but persistent. This is not an indication to keep the burgos catheter in, per Dr Marshall, but he should only undergo VT when Dr Marshall is in-house. (14) DVT prophylaxis: Status: Acute Assessment and plan: Sc heparin (15) Discharge planning issues: Status: Acute Assessment and plan: DNR/DNI, per computer record. Keep in ICU. Total Critical Care Time 45 minutes. Subjective Subjective Interval history since last seen: Sedated and arouses only when we attempted to turn him in bed, does not stay awake long enough to answer questions - falls asleep. Gargling on secretions, but able to clear them when turned to the side. Has required suctioning. On 1 L oxymask this morning. Overnight, CIWAs 13 - 7-14-17 - 11. Restless, sweating, tremors. Was pulling on tubes. Got phenobarbital (now maxed out), haldol x 2. Got soft restraints. SR, PVCs. NS@75 cc. 250 cc out/8hrs Afebrile. Troponin 0.08. Exam Narrative Exam Narrative: General: elderly male, sedated, arousable after a lot of stimulation, but not to the point that he is verbal. He did follow commands. Gargling respiratory secretions - cleared when turned to the side. HEENT: EOMI, MMM Heart: RRR Lungs: CTAB Abdomen: soft, nontender, nondistended Extremities: no e/c/c BLE's, trace pedal pulses B Objective Last Vital Signs Temp 36.8 C 03/27/20 04:00 Pulse 98 H 03/27/20 06:01 Resp 18 03/27/20 06:01 BP 150/90 H 03/27/20 06:01 Pulse Ox 100 03/27/20 06:01 Laboratory Results - last 24 hr 03/26/20 03/26/2003/26/21 06:18 11:50 12:39 WBC RBC Hgb Hct MCV MCH MCHC RDW Plt Count MPV Immature Gran % Neutrophils % Lymphocytes % Monocytes % Eosinophils % Basophils % Nucleated RBC % Absolute Neutrophils Absolute Lymphocytes Absolute Monocytes Absolute Eosinophils Absolute Basophils ABG Sample Site Left radial ABG pH 7.41 ABG pCO2 41 ABG pO2 64 L ABG HCO3 26 ABG Total CO2 24 ABG O2 Saturation 92 L ABG Base Excess 2 FiO2 21 Sodium Potassium Chloride Carbon Dioxide Anion Gap BUN Creatinine Estimated GFR/1.73 m2 Glucose Calcium Magnesium Ammonia < 10 L Creatine Kinase 449 H Troponin I 03/27/20 03/27/20 06:43 06:43 WBC 8.74 RBC 3.78 L Hgb 12.4 L Hct 38.5 L MCV 101.9 H MCH 32.8 MCHC 32.2 RDW 14.3 H Plt Count 178 MPV 9.3 Immature Gran % 1.0 Neutrophils % 71.6 Lymphocytes % 12.9 Monocytes % 11.0 Eosinophils % 2.9 Basophils % 0.6 Nucleated RBC % 0 Absolute Neutrophils 6.26 Absolute Lymphocytes 1.13 L Absolute Monocytes 0.96 H Absolute Eosinophils 0.25 Absolute Basophils 0.05 ABG Sample Site ABG pH ABG pCO2 ABG pO2 ABG HCO3 ABG Total CO2 ABG O2 Saturation ABG Base Excess FiO2 Sodium 144 Potassium 3.3 L Chloride 108 H Carbon Dioxide 25.9 Anion Gap 10.1 BUN 38 H Creatinine 1.3 Estimated GFR/1.73 m2 53.25 Glucose 75 Calcium 8.7 Magnesium 2.4 Ammonia Creatine Kinase Troponin I 0.08 H*
[2020-03-27 08:39] LABS: ALT 20 U/L (16-63); AST 49 U/L (15-37); Albumin 2.3 g/dL (3.4-5.0); Alkaline Phosphatase 227 U/L (46-116); Bilirubin, Direct 0.17 mg/dL (0.00-0.20); Bilirubin, Total 0.6 mg/dL (0.2-1.0); Creatine Kinase 352 U/L (39-308); Total Protein 6.1 g/dL (6.4-8.2)
[2020-03-27] MEDS: POTASSIUM CHLORIDE 20 MEQ/100 ML BAG 50 MEQ IVPB ×2 (09:36→11:48)
[2020-03-27] MEDS: Nystatin POWDER 60 GM JAR TP ×3 (09:37→21:14)
[2020-03-27 10:19] LABS: Procalcitonin 0.2 ng/mL
--- NOTE | 2020-03-27 10:56 | PT.INIE ---
Date of service: 03/26/20 Time of Service: 10:56 PT Notes Visit Reasons: ALESIA DUE TO RHABDOMYOLYSIS, ELEVATED TROPONIN Physical Therapy Inpatient Initial Evaluation Date: 03/26/2020 Referring Doctor: Mónica Moreno MD PT Orders: PT CONSULT: Limited ability Precautions: Fall. Standard. Activity as tolerated. Patient Profile/Admitting Diagnosis: Joaquín is a 79-year-old male with CAD, HTN, and ischemic cardiomyopathy who was brought in to the ED by EMS on 03/24/2019. Patient was found on floor by EMS personnel during a welfare check after 3 days of being inaccessible. Patient is diagnosed with bladder neck contracture, acute kidney injury superimposed on chronic kidney disease, rhabdomyolysis, elevated troponin, acute dehydration, and EtOH dependence. PMHX: Medical History (Updated 03/24/20 @ 16:56 by Mónica Moreno MD) Bladder neck contracture CAD (coronary artery disease) Chronic kidney disease Hypercholesterolemia Hypertension Ischemic cardiomyopathy Prostate cancer Surgical History History of heart artery stent S/P prostatectomy Status post THR (total hip replacement) Social History/Home Situation: Unable to extract information from patient at this time due to decreased level of alertness. Please see care management notes. Equipment Owned/DME: Unknown at this time Subjective: Joaquín required significant stimulation to awaken as he remains lethargic. Nurse Jessica attempted to wake up patient early in the morning around 8:30 AM but patient was somnolent. An attempt later in the morning proved more successful as patient was able to open his eyes and respond to another attempt at mobilizing patient. Objective: General Observation: Supine in bed. Patient appearing somnolent. Telemetry monitoring in place. Garcia catheter in place. Soft restraints to bilateral UEs in place. Nurse Lopez and JUSTIN Robles available to assist for safety. Mental Status: Less somnolent later in the morning. Able to follow single step commands with 1-2 repetitions Pain: None reported but did express discomfort on the perineal area at the insertion of the Garcia catheter Vital Signs: Oxygen saturation stayed above 90% throughout session. Rate ranged from 75 to 110 bpm throughout. ROM: Right Upper Extremity: Grossly WFL Left Upper Extremity: Grossly WFL Right Lower Extremity: Grossly WFL Left Lower Extremity: Grossly WFL Strength: Right Upper Extremity: Grossly 3-/5 Left Upper Extremity: Grossly 3-/5 Right Lower Extremity: Grossly 3-/5 Left Lower Extremity: Grossly 3-/5 Sensation: Intact as to pain and pressure on bilateral lower extremities. Bed Mobility/Transfers: Supine to sit moderate assist of 2 with HOB at 45 degrees Sit to supine moderate assist of 2 with HOB at 45 degrees Sit to stand moderate assist of 2 Stand to sit moderate assist of 2 Bed to chair NT. Unsafe at this time due to decreased alertness. Chair to bed NT. Unsafe at this time due to decreased alertness. Gait: PT and JUSTIN Robles were able to assit patient with sidestepping x small 4 steps to come close to HOB with moderate assist of 2 with maximal verbal, tactile and visual cueing provided for safety. Balance: Static Sitting: Poor Dynamic Sitting: Poor Static Standing: Poor Dynamic Standing: Poor Special Tests: Mobility Limitations Standardized Measure [facility] AM-PAC 6 clicks Basic Mobility Inpatient Short Form: Raw Score: 6 CMS Score: 100% deficit Informed Consent/Education: Patient instructed in purpose of PT consult and plan of care. Assessment: Joaquín try mobility decline and decreased level of alertness/somnolence due to admitting diagnosis. He requires extensive assist for all bed mobility and transfer task performance for safety. This in order to gradually facilitate increase in mobility independence as tolerated. Patient presents with clinical signs and symptoms consistent with current/admitting diagnoses that have resulted to mobility limitations, gait instability, generalized weakness, and impairment of motor control as demonstrated by the following impairment level findings: 1. Decreased strength to BUE/LE major muscle groups 2. Impaired sitting/standing balance 3. Impaired activity tolerance 4. Limitation of joint range of motion in BUE/LE 5. Somnolence Impairments are contributing to the following functional limitations: 1. Dependent bed mobility skills 2. Increased dependence with transfers 3. Inability to safely ambulate without assistive device and physical assistance 4. Increase completion time for mobility ADL performance 5. Increased fall risk 6. Inability to negotiate steps alone safely Patient is assessed as a 11952 high complexity based on the following: History: 79-year-old male with impairment level findings, functional limitations, and past medical history as indicated above Examination: Demonstrable impairment in strength, balance, and mobility level with underlying impairments and functional limitations as documented above Presentation:Evolving Decision Makin high complexity Goals: Goals X1 week 1. Supine-Sit minimal assist 2. Sit-Supine minimal assist 3. Sit-Stand minimal assist 4. Stand-Sit minimal assist 5. Bed-Chair minimal assist 6. Chair-Bed minimal assist 7. Minimal assist gait on level surface with use of least restrictive device for at least 300 feet without report of pain nor dyspnea 8. minimal assiststair negotiation while holding onto bilateral rails for at least 10 steps without report of pain nor dyspnea 9. Fair static and dynamic standing balance/tolerance Plan of Care/Treatment Plan: 1-2x/day, 7 days/week x 1 week. Plan of care has been reviewed with the DESIGN ARCHITECT providing the service under Physical Therapy direction. Initiate Physical Therapy intervention for strengthening, bed mobility, transfers, gait, stairs, balance training, use of assistive device. DISCHARGE RECOMMENDATIONS: Patient will benefit from shelter facility placement for continued skilled physical therapy services in order to progress mobility level, strength, and balance in preparation for a safe discharge to home. TREATMENT CODE/TIME: 26183 x 24 minutes beginning at 10:56 AM. Thank you for the opportunity to participate in the care of this patient. Krystin Serna PT, DPT, CLT [facility] [place], [place]
[2020-03-27] MEDS: MAGNESIUM SULFATE 8.12 MEQ, MULTIVITAMIN 10 ML, THIAMINE 100 MG, FOLIC ACID 1 MG in Nor... 75 MG IV (12:45)
--- NOTE | 2020-03-27 14:46 | PT.INTREAT ---
Date of service: 03/27/20 Time of Service: 10:05 PT Notes Visit Reasons: ALESIA DUE TO RHABDOMYOLYSIS, ELEVATED TROPONIN Inpatient Physical Therapy Treatment Note [facility] Date: 03/27/2020 PRECAUTIONS: Fall, soft restraints in place OBJECTIVE: Joaquín is sedated today, although is able to follow commands in a.m. PAIN: Patient does not communicate any pain complaints BED MOBILITY/TRANSFERS Rolling L/R: Max A Supine-sit: Mod A with HOB at 40 degrees in a.m.; Max A x2 with HOB at 40 degrees in p.m. Sit-supine: Max A x2 with HOB flat Sit-stand: Mod A x2 in a.m.; unable in p.m. Stand-sit: Mod A x2 in a.m.; unable in p.m. Bed-Chair: Unable Chair-bed: Unable GAIT Assistive Device: FWW Weight bearing: Full Assist: Mod A x2 Distance: 0 steps Deviation: Brace B feet for safety Static sitting at EOB x 3 minutes with Max A x2 in p.m. THEREX: Patient was instructed in LAQ and hip flexion exercises, while seated at EOB. He requires verbal and tactile cueing for exercise completion. He also performs functional [id number] exercises x4 with Mod A x2 and FWW support. ASSESSMENT: Patient appears limited due to sedation. He was able to tolerate standing at EOB with Mod A x2 in a.m. He continues to require significant assist for all bed mobility and transfers at this point, likely due to sedation. PLAN: Continue with bed mobility and transfer training, add gait training when appropriate, and continue with global strengthening for improved mobility. TREATMENT CODE/TIME: Session 1: 25 minutes; [id number], [id number] Session 2: 15 minutes; [id number]
[2020-03-28] VITALS (63 sets, daily range): BP systolic 139–195; BP diastolic 30–163; PULSE 80–128; RESP 17–26; TEMP 35.9–37.3; O2SAT 84–97
--- NOTE | 2020-03-28 | DI.CT_ITS ---
EXAM: CT BRAIN NECK CTA CLINICAL HISTORY: garbled speech, subtle left tounge/neck weakness. TECHNIQUE: Imaging Protocol: Axial CT angiography was performed with multi-slice acquisition and mu lti-planar and/or 3D reconstructions. CONTRAST MATERIAL: Intravenous: Omnipaque 350 Contrast volume:structured data in ml COMPARISON: CT CHEST FOR PULMONARY EMBOLUS from 09/20/[address] HEAD WO from 03/24/2020 FINDINGS: CT Head W/O, W: Ventricles and Extra axial spaces: Normal in size and morphology for the patient's age. Hemorrhage: None. Cerebral parenchyma: Moderate to severe atrophy. No abnormal enhancing lesions. Midline shift: None. Brainstem/Cerebellum: Normal. Calvarium: Normal. Visualized Paranasal sinuses/Mastoids: Minimal mucosal thickening inferiorly in the maxillary sinuses . CTA Brain W: Internal Carotid Arteries: Mild plaque. No significant stenosis. Middle Cerebral Arteries: Right: No aneurysm, occlusion or significant stenosis. Left: No aneurysm, occlusion or significant stenosis. Anterior Cerebral Arteries: Right: No aneurysm, occlusion or significant stenosis. Left: No aneurysm, occlusion or significant stenosis. Mild atherosclerotic plaque distally. Posterior cerebral Arteries: Right: No aneurysm, occlusion or significant stenosis. Left: No aneurysm, occlusion or significant stenosis. Vertebral Arteries: Right: No aneurysm, occlusion or significant stenosis. Left: No aneurysm, occlusion or significant stenosis. Basilar Artery: No aneurysm, occlusion or significant stenosis. CTA Neck W: Common Carotid: Right: Mild calcific plaque. No dissection, occlusion or significant stenosis. Left: Mild calcific plaque. No dissection, occlusion or significant stenosis. External Carotid: Right: No aneurysm, occlusion or significant stenosis. Left: No aneurysm, occlusion or significant stenosis. Internal Carotid: Right: Mixed calcific and noncalcific plaque seen at the common carotid bulb extending into the proxi mal right internal carotid artery causing visually moderate stenosis, 50-69 percent. No aneurysm, oc clusion or significant stenosis. Left: Mixed calcified and noncalcified plaque in the common carotid bulb extending into the proximal internal carotid artery causing critical stenosis, nearly occlusive. It is partially reconstituted distal to this level but shows reduced diameter.. The distal left internal carotid is not well evalu ated due to motion. No aneurysm, or dissection. Vertebral Artery: Right: No aneurysm, occlusion or significant stenosis. Left: No aneurysm, occlusion or significant stenosis. Lung Apices: Normal. Bones: Degenerative disc changes. Soft Tissues: Normal. IMPRESSION: 1. Normal CTA examination of the [place]. 2. Moderate to severe cerebral atrophy. No acute infarct is visible.. 3. Mixed calcified and noncalcified plaque in the left internal carotid artery causing critical steno sis. 4. Moderate stenosis proximal right internal carotid artery RADIATION DOSE DELIVERED: 2,303.81mGy.cm Total DLP DATA REPOSITORY: All CT scans at this facility are submitted to the National Radiology Data Registry (NRDR) Dose Index Registry (DIR) with the [employer] (ACR). RADIATION OPTIMIZATION: All CT scans at this facility use at least one of these dose optimization te chniques: automated exposure control; mA and/or kV adjustment per patient size (includes targeted exa ms where dose is matched to clinical indication); or iterative reconstruction.
[2020-03-28] MEDS: Heparin 5,000 UNITS/ML VIAL 5000 UNITS SC ×3 (01:17→18:06)
[2020-03-28 07:29] LABS: ALT 21 U/L (16-63); AST 40 U/L (15-37); Albumin 2.3 g/dL (3.4-5.0); Alkaline Phosphatase 236 U/L (46-116); Anion Gap 10.9 mmol/L (3-11); BUN 26 mg/dL (7-18); Bilirubin, Direct 0.19 mg/dL (0.00-0.20); Bilirubin, Total 0.6 mg/dL (0.2-1.0); CO2 26.1 mmol/L (21.0-32.0); CREATININE 1.1 mg/dL (0.70-1.30); Calcium 8.9 mg/dL (8.5-10.1); Chloride 110 mmol/L (98-107); Creatine Kinase 296 U/L (39-308); Glucose 75 mg/dL (74-106); Potassium 3.7 mmol/L (3.5-5.1); Sodium 147 mmol/L (136-145); Total Protein 6.3 g/dL (6.4-8.2)
--- NOTE | 2020-03-28 08:46 | NT_ITS ---
Date of service: 03/28/20 Time of Service: 08:46 PT Notes Visit Reasons: ALESIA DUE TO RHABDOMYOLYSIS, ELEVATED TROPONIN 03/28/2020 Hold per nursing. Helene Iraheta, [employer] DIRE[employer] SPECIALIST
[2020-03-28] MEDS: Nystatin POWDER 60 GM JAR TP ×2 (10:54→20:33)
[2020-03-28] MEDS: Normal Saline 1,000 ML 75 ML IV (10:54)
[2020-03-28] MEDS: MAGNESIUM SULFATE 8.12 MEQ, MULTIVITAMIN 10 ML, THIAMINE 100 MG, FOLIC ACID 1 MG in Nor... 75 MG IV (12:22)
--- NOTE | 2020-03-28 13:27 | W.PM.PROGNOT ---
Date of Service Date of service: 03/28/20 Time of Service: 12:41 Assessment and Plan Assessment and plan (1) Acute hyperactive alcohol withdrawal delirium: Status: Acute Assessment and plan: He no longer appears to be in alcohol withdrawal. No evidence of source of infection (could be contributing to delirium), but procalcitonin is coming down on empiric ceftriaxone. Blood cultures are negative. US RUQ negative. CXR/UA negative. I think we can discontinue the ceftriaxone. Continue to watch respiratory status as I still have a concern for aspiration. We discontinued the soft restraints, and he is asking to eat and drink. I had like to have speech and swallow evaluation before this, but this is not available over the weekend. If his subtle deficits improve and brain imaging reassuring we can give a careful trial of oral fluid. He would benefit from being back on his cardiac medications I am ordering a CTA of the brain and neck. MRI not available until Monday and I would like to make sure we have not missed stroke associated with his events. (2) Acute kidney injury superimposed on chronic kidney disease: Status: Resolved Assessment and plan: Due to acute dehydration as well as mild rhabdomyolysis (CPK 352; resolved). Cr is better than baseline of around 1.3, likely because he is off his ARB. Continue gentle IVF because the patient is NPO. Holding the diuretics. I would like to restart the losartan but he is currently n.p.o. US renal without hydronephrosis. (3) Rhabdomyolysis: Status: Resolved Assessment and plan: As above Consider seizure (4) Hypokalemia: Status: Acute Assessment and plan: Normal this morning, continue to monitor. (5) Elevated troponin: Status: Acute Assessment and plan: in setting of ALESIA and rhabdo. Flat. No ACS on this admission. Continue cardiac monitoring until further stabilizes. (6) Leucocytosis: Status: Resolved Assessment and plan: Most likely reactive to fall/rhabdomyolysis, but considering infectious etiologies as well as procalcitonin was elevated and is coming down with empiric ceftriaxone. High blood cell count has normalized, and I am stopping the ceftriaxone. (7) Bladder neck contracture: Status: Acute Assessment and plan: s/p burgos by Dr Marshall. Bleeding around catheter has stopped. D/c burgos and voiding trial only with Dr Marshall in - Monday at the earliest. (8) CAD (coronary artery disease): Status: Chronic Assessment and plan: No ACS on this admission. If he is not able to take p.o. fluids, I will treat with IV metoprolol. (9) Hypertension: Status: Chronic Assessment and plan: holding ARB, metoprolol, and diuretics. IV lopressor as above (10) Ischemic cardiomyopathy: Status: Chronic Assessment and plan: As above. EF with preserved EF on this admission. Tolerating IVF. Continue to monitor respiratory status while hydrating. (11) Alcohol dependence: Status: Chronic Assessment and plan: Continue banana bag. Mental status is improving, will discuss treatment options for alcohol use disorder and make a plan prior to discharge. (12) DVT prophylaxis: Status: Acute Assessment and plan: Sc heparin (13) Discharge planning issues: Status: Acute Assessment and plan: DNR/DNI, per outpatient record. Keep in ICU for mental status further clears. Total Critical Care Time 45 minutes. Subjective Subjective Patient reports: denies vomiting, shortness of breath and fever Interval history since last seen: 24 hr: Phenobarbitol discontinued 03/27/20 Per nursing still confusion overnight, but improved this morning. S: Patient is able to respond to questions appropriately, but with garbled speech it is difficult to understand him other than simple responses. He does indicate he would like to eat and drink. He is able to deny pain. He feels he has to urinate (burgos placed). Exam Narrative Exam Narrative: General: elderly male, now alert and vocalizing with garbled speech. Answers questions appropriately and able to communicate some of his concerns. He was able to say hospital in [place].. HEENT: EOMI, MM dry with a thick exudate consistency of dried out oatmeal on hard palate, removed with wet sponge stick. No solid lesions below. Heart: RRR no murmurs Lungs: CTAB normal effort Abdomen: soft, nontender, nondistended Extremities: no e/c/c BLE's, trace pedal pulses B Neurologic: Cranial nerves II through XII intact other than some asymmetry with diminished ability to point tongue to left and on shoulder shrug a little weaker on the left. Strength grossly symmetric in hands and feet. Coordination and sensation to light touch grossly intact. Pronator drift difficult to interpret but roughly symmetric. Objective Last Vital Signs Temp 37.0 C 03/28/20 08:00 Pulse 105 H 03/28/20 06:01 Resp 19 03/28/20 06:00 BP 158/89 H 03/28/20 06:01 Pulse Ox 96 03/28/20 04:14 Laboratory Results - last 24 hr 03/28/20 03/28/20 05:30 06:15 APTT Cancelled Sodium 147 H Potassium 3.7 Chloride 110 H Carbon Dioxide 26.1 Anion Gap 10.9 BUN 26 H D Creatinine 1.1 Estimated GFR/1.73 m2 >= 60.00 Glucose 75 Calcium 8.9 Magnesium 2.0 Total Bilirubin 0.6 Conjugated Bilirubin 0.19 AST 40 H ALT 21 Alkaline Phosphatase 236 H Creatine Kinase 296 Total Protein 6.3 L Albumin 2.3 L
[2020-03-28] MEDS: LORazepam 2 MG/ML VIAL 1 MG IVP (16:37)
[2020-03-28] MEDS: Omnipaque 350 MG/ML 100 ML BTL IJ (17:29)
[2020-03-28] MEDS: Normal Saline - Diluent 50 ML VIAL IV (17:38)
[2020-03-28] MEDS: Metoprolol 5 MG/5 ML VIAL 2.5 MG IVP ×2 (18:05→22:32)
--- NOTE | 2020-03-28 18:26 | CMPROGNOTE_ITS ---
- If Service Date Differs Date of service: 03/28/20 Time of Service: 18:26 Care Management Progress Note S/O: Joaquín remains at ICU level of care today. Per RN, he has garbled speech and is impulsive. Per report, he is very confused. He is asking for food/drink today, but remains NPO due to aspiration risk. Speech eval is requested, but will not be available over the weekend. He may have a trial of liquid diet, depending on how he improves. Per MD, CTA of brain and neck was ordered today. CM will continue to follow. A: 79 year old male admitted to [facility] 03/24/19 for ALESIA due to rhabdomyolysis and elevated troponin P: Joaquín remains in ICU at this time; undetermined discharge plan. CM will continue to follow and support patient and family and address discharge planning needs.
--- NOTE | 2020-03-28 18:35 | DI.VRAD_ITS ---
Addendum created by Daryb Murray MD on 03/28/2020 7:11:23 PM EST: THIS REPORT CONTAINS FINDINGS THAT MAY BE CRITICAL TO PATIENT CARE. The findings were verbally communicated via telephone conference with DR. VIZCAINO at 7:08 PM EST on 03/28/2020. The findings were acknowledged and understood. Initial report created on 03/28/2020 6:35:29 PM EST: PROCEDURE INFORMATION: Exam: CT Angiography Head With Contrast Exam date and time: 03/28/2020 1:24 PM Age: 79 years old Clinical indication: Other: Garbled speech subtle left tounge and neck weakness TECHNIQUE: Imaging protocol: Computed tomography angiography of the head with intravenous contrast. 3D rendering (Not supervised by radiologist): MIP and/or 3D reconstructed images were created by the technologist. Contrast material: OMNI 350; Contrast volume: 100 ml; Contrast route: INTRAVENOUS (IV); COMPARISON: CT HEAD WO 03/24/2020 3:16 PM FINDINGS: ANTERIOR CIRCULATION: Right internal carotid artery: Mild peripheral atherosclerotic plaque. Intracranial segment is patent with no significant stenosis. No aneurysm. Right middle cerebral artery: Unremarkable. No occlusion or significant stenosis. No aneurysm. Right anterior cerebral artery: Unremarkable. No occlusion or significant stenosis. No aneurysm. Left internal carotid artery: Peripheral atherosclerotic plaque resulting in mild, less than 50%, stenosis. Intracranial segment is patent with no significant stenosis. No aneurysm. Left middle cerebral artery: Unremarkable. No occlusion or significant stenosis. No aneurysm. Left anterior cerebral artery: Unremarkable. No occlusion or significant stenosis. No aneurysm. POSTERIOR CIRCULATION: Right vertebral artery: Unremarkable. No occlusion or significant stenosis. No aneurysm. Left vertebral artery: Unremarkable. No occlusion or significant stenosis. No aneurysm. Basilar artery: Unremarkable. No occlusion or significant stenosis. No aneurysm. Right posterior cerebral artery: Unremarkable. No occlusion or significant stenosis. No aneurysm. Left posterior cerebral artery: Peripheral atherosclerotic plaque within the V4 segment resulting in mild, less than 50%, stenosis. No occlusion or significant stenosis. No aneurysm. Brain: No definite mass, mass effect, or midline shift. Cerebral ventricles: No ventriculomegaly. Bones/joints: Unremarkable. No acute fracture. Soft tissues: Unremarkable. IMPRESSION: No large vessel hemodynamically significant stenosis, aneurysm or occlusion within the intracranial arteries. PROCEDURE INFORMATION: Exam: CT Head Without Contrast Exam date and time: 03/28/2020 1:24 PM Clinical indication: Other: Garbled speech subtle left tounge and neck weakness TECHNIQUE: Imaging protocol: Computed tomography of the head without contrast. COMPARISON: No relevant prior studies available. FINDINGS: Brain: Moderate volume loss throughout the brain parenchyma. Multifocal areas of low attenuation are seen within the subcortical and periventricular white matter. No intracranial hemorrhage. No midline shift. Cerebral ventricles: No hydrocephalus. Bones/joints: Unremarkable. No acute fracture. Paranasal sinuses: Minimal mucosal thickening is seen within the right maxillary and ethmoid sinuses. Minimal mucosal thickening/fluid also within the forearm right mastoid air cells. The mastoid air cells are otherwise well aerated pleural Mastoid air cells: See Paranasal sinuses finding. Soft tissues: Increased fluid is seen within the extra-axial spaces overlying the bilateral hemispheres near the high vertex. This likely represents CSF expansion rather than chronic subdural hygromas. This is similar when compared to the prior study. IMPRESSION: 1. No evidence for acute intracranial process. No significant change from the prior study. 2. Moderate atrophy with white matter changes most consistent with chronic microvascular ischemic disease. 3. Stable CSF fluid overlying the hemispheres, likely representing CSF expansion due to atrophy rather than chronic subdural hygromas. PROCEDURE INFORMATION: Exam: CT Angiography Neck With Contrast Exam date and time: 03/28/2020 1:24 PM Age: 79 years old Clinical indication: Other: Garbled speech subtle left tounge and neck weakness TECHNIQUE: Imaging protocol: Computed tomography angiography of the neck with intravenous contrast. 3D rendering (Not supervised by radiologist): MIP and/or 3D reconstructed images were created by the technologist. Contrast material: OMNI 350; Contrast volume: 100 ml; Contrast route: INTRAVENOUS (IV); COMPARISON: CT HEAD WO 03/24/2020 3:16 PM FINDINGS: Right common carotid artery: Mild calcific atherosclerotic plaque is seen throughout the common carotid artery without stenosis. Right internal carotid artery: Soft and calcific atherosclerotic plaque is seen within the right carotid bulb extending into the proximal right internal carotid artery resulting in moderate, 50-69%, stenosis. Normal contrast opacification is seen distal to the stenosis. Right external carotid artery: No occlusion or stenosis of the origin. Right vertebral artery: No stenosis. No dissection or occlusion. Left common carotid artery: Mild atherosclerotic plaque is seen throughout the left common carotid artery resulting in areas of mild, less than 50%, stenosis. Left internal carotid artery: Soft and calcific atherosclerotic plaque is seen within the left carotid bulb extending into the proximal left internal carotid artery resulting in severe, near occlusive, stenosis. The internal carotid artery, distal to the high-grade stenosis is small in size but demonstrates normal contrast opacification within the extracranial segment. Please note, the very distal extracranial segment is not well evaluated due to significant motion degradation, however, appears to demonstrate contrast opacification. A stenosis at this level cannot be excluded on this study due to the motion degradation. Left external carotid artery: No occlusion or stenosis of the origin. Left vertebral artery: No stenosis. No dissection or occlusion. Subclavian arteries: The right subclavian artery is tortuous and ectatic. Other vasculature: Mild peripheral atherosclerotic disease within the origins of the great vessels without stenosis. Mild calcific atherosclerotic plaque within the proximal right external iliac artery without stenosis. Bones/joints: No acute fracture. Moderate degenerative changes throughout the cervical spine. Soft tissues: Normal. No significant soft tissue swelling. IMPRESSION: 1. High-grade, near occlusive/critical, stenosis within the left proximal internal carotid artery with reconstitution of flow distal to the stenosis. Please note, the very distal extracranial segment is not well evaluated due to patient motion degradation, however, appears patent. 2. Moderate, 50-69%, stenosis within the right proximal right internal carotid artery. 3. Mild, less than 50%, stenosis within the left common carotid artery. 4. No hemodynamically significant stenosis within the remaining extracranial arteries. Code dominant, widely patent, bilateral vertebral arteries. REFERENCES: NASCET CRITERIA. The degree of internal carotid artery stenosis is based on NASCET criteria. Normal is no stenosis. Mild is less than 50% stenosis. Moderate is 50-69% stenosis. Severe is 70% to 99% stenosis. Total occlusion is no detectable patent lumen. Dictated and Authenticated by: Darby Murray MD. Ordering:ANNEMARIE Agarwal MD
[2020-03-28] MEDS: cefTRIAXone 2 GM/50 ML BAG IV (20:20)
[2020-03-29] VITALS (99 sets, daily range): BP systolic 73–166; BP diastolic 44–95; PULSE 48–110; RESP 0–37; TEMP 35.8–37.1; O2SAT 70–99
[2020-03-29] MEDS: Heparin 5,000 UNITS/ML VIAL 5000 UNITS SC ×3 (01:48→19:33)
[2020-03-29] MEDS: Metoprolol 5 MG/5 ML VIAL 2.5 MG IVP ×2 (04:00→14:00)
[2020-03-29] MEDS: Normal Saline Flush 10 ML SYR IVP (04:00)
--- NOTE | 2020-03-29 09:06 | NUR.NOTE ---
Patient's son Berto called this morning for information/ speak with patient. this editorial writer informed him that he was unable to take the call at this time and if he wanted to have the most up to date information he should speak with Ann. patient's son stated that he had and was sick of us giving him the run around and we should just wake the patient up. Patient's son said he would call back later and requests for the phone to be placed at his ear.
[2020-03-29 09:10] LABS: Abs Immature Grans 0.16 10^3/uL (0.0-0.06); HCT 41.9 % (40.0-50.0); HGB 13.1 g/dL (13.5-17.5); MCH 33.2 pg (27.0-33.0); MCHC 31.3 % (32.0-36.0); MCV 106.1 fL (80-95); Nucleated RBC 0 %; RBC 3.95 10^6/uL (4.36-5.78); RDW 15.1 % (11.8-14.1); RDW-SD 58.5 fL; WBC 9.72 10^3/uL (4.4-10.8)
[2020-03-29] MEDS: Nystatin POWDER 60 GM JAR TP ×3 (09:20→19:57)
[2020-03-29 09:23] LABS: Anion Gap 8.7 mmol/L (3-11); BUN 26 mg/dL (7-18); CO2 28.3 mmol/L (21.0-32.0); CREATININE 1.1 mg/dL (0.70-1.30); Calcium 8.7 mg/dL (8.5-10.1); Chloride 116 mmol/L (98-107); Glucose 94 mg/dL (74-106); Magnesium 2.1 mg/dL (1.8-2.4); Potassium 3.9 mmol/L (3.5-5.1); Sodium 153 mmol/L (136-145)
--- NOTE | 2020-03-29 09:30 | DI.RAD_ITS ---
EXAM: XR PORTABLE CHEST AP CLINICAL HISTORY: Drop in oxygen sats TECHNIQUE: 2D digital imaging was performed. COMPARISON: CR XR PORTABLE CHEST AP from 03/25/2020 FINDINGS: Limited exam due to poor pulmonary inflation. Leads overlie the chest. There is a tiny right pleura l effusion. There is a small left pleural effusion. There are increasing densities at the left lung base which could represent increasing atelectasis versus pneumonia. There is no pneumothorax. The heart again appears enlarged, unchanged. IMPRESSION: Increasing consolidation at the left lung base. Small bilateral pleural effusions. DATA REPOSITORY: RADIATION DOSE DELIVERED:
[2020-03-29 09:31] LABS: Absolute Eosinophil Count 0.29 10^3/uL (0.0-0.7); Absolute Lymphocyte Count 1.17 10^3/uL (1.2-3.4); Absolute Monocyte Count 1.85 10^3/uL (0.1-0.8); Absolute Neutrophil Count 6.32 10^3/uL (1.2-6.7); Bands % 1; Platelet Count 246 10^3/uL (130-400)
[2020-03-29 09:32] LABS: Diff Comment Manual Differential; Macrocytosis 2+; Polychromasia Present
[2020-03-29 09:33] LABS: Poikilocytes 1+
[2020-03-29] MEDS: DEXTROSE 5%-WATER 1,000 ML 150 ML IV (10:05)
--- NOTE | 2020-03-29 10:10 | NT_ITS ---
Date of service: 03/29/20 Time of Service: 10:11 PT Notes Visit Reasons: ALESIA DUE TO RHABDOMYOLYSIS, ELEVATED TROPONIN 03/29/2020 Hold per nursing. Helene Iraheta, ESCROW SECRETARY
[2020-03-29 10:20] LABS: BE -1 mmol/L (-2-3); HCO3 28 mmol/L (22-26); pO2 66 mmHg (80-105); sO2 87 % (95-98); tCO2 26 mmol/L (23-27)
[2020-03-29 10:23] LABS: pCO2 81 mmHg (35-45); pH 7.14 (7.35-7.45)
--- NOTE | 2020-03-29 10:52 | DI.VRAD_ITS ---
PROCEDURE INFORMATION: Exam: XR Chest, 1 View Exam date and time: 03/29/2020 10:25 AM Age: 79 years old Clinical indication: Other: Drop in ) stats; Patient HX: Drop in o2 stats TECHNIQUE: Imaging protocol: XR of the chest Views: 1 view. COMPARISON: CR XR PORTABLE CHEST AP 03/25/2020 8:15 AM FINDINGS: Lungs: Left lower lobe consolidation. Low lung volumes. Pleural spaces: Bilateral pleural effusions. Heart/Mediastinum: Unremarkable. No cardiomegaly. Bones/joints: Unremarkable. IMPRESSION: Progressive consolidation left lower lobe. Dictated and Authenticated by: Frank Ramirez MD. Ordering:ANNEMARIE Agarwal MD
[2020-03-29 12:41] LABS: BE (Venous) 0 mmol/L (-2-3); HCO3 (Venous) 27 mmol/L (23-28); O2 Sat (Venous) 79 %; TCO2 (Venous) 25 mmol/L (24-29); pCO2 (Venous) 55 mmHg (41-51); pH (Venous) 7.29 (7.31-7.41); pO2 (Venous) 44 mmHg
[2020-03-29 13:00] LABS: Anion Gap 7.9 mmol/L (3-11); BUN 27 mg/dL (7-18); CO2 27.1 mmol/L (21.0-32.0); CREATININE 1.3 mg/dL (0.70-1.30); Calcium 8.7 mg/dL (8.5-10.1); Chloride 114 mmol/L (98-107); Estimated GFR 53.25 (mL/min/1.73m2); Glucose 141 mg/dL (74-106); Sodium 149 mmol/L (136-145)
--- NOTE | 2020-03-29 13:15 | RT.EKG_ITS ---
APPROVED REPORT Exam: Resting ECG Patient Location: I HR:101 bpm ECG Measurements Heart Rate 101 AXIS FL 204 P 41 QRSd 124 QRS -50 QT 401 T 114 QTc 511 Conclusion Sinus rhythm...normal P axis, V-rate 60- 99 Right bundle branch block...QRSd>120, terminal axis(90,270) Inferior infarct, old...Q >35mS, II III aVF Nonspecific T abnormalities, lateral leads...T <-0.10mV, I aVL V5 V6
--- NOTE | 2020-03-29 14:12 | W.PM.PROGNOT ---
Date of Service Date of service: 03/29/20 Time of Service: 14:13 Assessment and Plan Assessment and plan (1) Mental status, decreased: Status: Acute Assessment and plan: Mental status has been improving with resolution of of alcohol withdrawal. Sedation last night initially after lorazepam was given so that he could tolerate CT. However has become clear that hypercapnia associated with acute respiratory acidosis is the main emergency medical technician/driver of his diminished mental status. Did respond to BiPAP, but unfortunately does not tolerate it as soon as mental status clears. Acute hypernatremia may also be contributing. CT of the head and neck with contrast yesterday did not show acute stroke, but I am still concerned with a brainstem lesion and signs on neurologic exam yesterday of cranial nerve XI and XII deficit and lack of gag reflex currently. This may be metabolic, but I still think an MRI would be useful to rule out brainstem ischemia. Is mental status and I do get a reflex makes him a very high aspiration risk. He is currently DNR/DNI, but reviewing advanced directive we have on file, does not appear that he was 100% rigid with this decision. We will discuss the case with his DPOA. (2) Acute hypernatremia: Status: Acute Assessment and plan: As above this may be contributing to some of the mental status changes. Certainly explains his thirst. I have discontinued normal saline and the sodium is improving on D5. We will monitoring blood sugar on the D5. (3) Acute hyperactive alcohol withdrawal delirium: Status: Acute Assessment and plan: He no longer appears to be in alcohol withdrawal. He has received IV vitamin repletion since admission 5 days ago, can discontinue with banana bag. Ceftriaxone discontinued today. continue to watch respiratory status as I still have a concern for aspiration. Soft restraints as needed only for safety, not restraint currently. (4) Acute kidney injury superimposed on chronic kidney disease: Status: Resolved Assessment and plan: Due to acute dehydration as well as mild rhabdomyolysis (CPK 352; resolved). Cr is at baseline of around 1.3. Continue gentle IVF as long as the patient is NPO. Holding the diuretics. I would like to restart the losartan but he is currently n.p.o. US renal without hydronephrosis. (5) Rhabdomyolysis: Status: Resolved Assessment and plan: As above Consider seizure (6) Elevated troponin: Status: Acute Assessment and plan: in setting of ALESIA and rhabdo. Trend was flat, not consistent with ACS on this admission. With the acidosis, we are seen some arrhythmias. (7) Leucocytosis: Status: Resolved Assessment and plan: Most likely reactive to fall/rhabdomyolysis, but considering infectious etiologies as well as procalcitonin was elevated and is coming down with empiric ceftriaxone. High blood cell count has normalized, ceftriaxone discontinued, monitor for signs of infection. (8) Bladder neck contracture: Status: Acute Assessment and plan: s/p burgos by Dr Marshall. Bleeding around catheter has stopped. D/c burgos and voiding trial only with Dr Marshall in - Monday at the earliest. (9) CAD (coronary artery disease): Status: Chronic Assessment and plan: No ACS on this admission. If he is not able to take p.o. fluids, I will treat with IV metoprolol. Resume cardiac meds as soon as he is able to take p.o. (10) Hypertension: Status: Chronic Assessment and plan: holding ARB, metoprolol, and diuretics. IV lopressor as above (11) Ischemic cardiomyopathy: Status: Chronic Assessment and plan: As above. EF with preserved EF on this admission. Tolerating IVF. Continue to monitor respiratory status while hydrating. (12) Alcohol dependence: Status: Chronic Assessment and plan: Continue banana bag. Mental status is improving, will discuss treatment options for alcohol use disorder and make a plan prior to discharge. (13) DVT prophylaxis: Status: Acute Assessment and plan: Sc heparin (14) Discharge planning issues: Status: Acute Assessment and plan: As above, patient is not clearly DNI. I was able to talk to his DPOA son Aiden, who feels like his father would have wanted short-term intubation if that was his best shot for recovery. We will proceed patient to protect his airway and correct his respiratory failure. Total ICU time 60 minutes Subjective Subjective Interval history since last seen: 24 hr: Patient was agitated and pulling out IV yesterday, given 1 mg lorazepam prior to CT scan Episode of third-degree heart block noted after 2.5 mg metoprolol dose overnight, self resolved Patient did not regain level of alertness over the course of the night. In the morning, experienced desaturations into the 70s with minimal responsiveness to sternal rub. ABG at that point showed profound respiratory acidosis. Labs showed sodium up to 153. Patient regained alertness after being placed on BiPAP, then refusing ongoing BiPAP therapy. Patient currently makes nonspecific vocalizations in response to questions and physical stimulation. Exam Narrative Exam Narrative: General: elderly male, somnolent and only making short vocalizations in response to stimulation as above. HEENT: Conjunctive a clear, opens and closes eyes but not to command, MM dry Heart: RRR with occasional irregular beat, no murmurs Lungs: CTAB but with only shallow breaths. Abdomen: soft, nontender, nondistended Extremities: no no edema. Bilateral feet somewhat mottled and cool, but pulses are palpable dorsalis pedis bilateral. Neurologic: Unable to perform neurologic exam. He is moving 4 extremities. Minimal to no gag reflex with suction. Objective Last Vital Signs Temp 37.1 C 03/29/20 08:30 Pulse 110 H 03/29/20 14:00 Resp 30 H 03/29/20 11:39 BP 145/95 H 03/29/20 14:00 Pulse Ox 86 L 03/29/20 11:41 Laboratory Results - last 24 hr 03/29/20 03/29/20 03/29/20 09:05 09:05 09:43 WBC 9.72 RBC 3.95 L Hgb 13.1 L Hct 41.9 MCV 106.1 H MCH 33.2 H MCHC 31.3 L RDW 15.1 H Plt Count 246 MPV 9.0 Immature Gran % 0.0 Neutrophils % 64.0 Band Neutrophils % 1 Lymphocytes % 12.0 Monocytes % 19.0 Eosinophils % 3.0 Basophils % 1.0 Nucleated RBC % 0 Absolute Neutrophils 6.32 Absolute Lymphocytes 1.17 L Absolute Monocytes 1.85 H Absolute Eosinophils 0.29 Absolute Basophils 0.10 RBC Morphology See below Polychromasia Present Poikilocytosis 1+ Macrocytosis 2+ ABG pH 7.14 L* ABG pCO2 81 H* ABG pO2 66 L ABG HCO3 28 H ABG Total CO2 26 ABG O2 Saturation 87 L ABG Base Excess -1 VBG pH VBG pCO2 VBG pO2 VBG HCO3 VBG Total CO2 VBG O2 Saturation VBG Base Excess Sodium 153 H Potassium 3.9 Chloride 116 H Carbon Dioxide 28.3 Anion Gap 8.7 BUN 26 H Creatinine 1.1 Estimated GFR/1.73 m2 >= 60.00 Glucose 94 Calcium 8.7 Magnesium 2.1 03/29/20 03/29/20 12:40 12:40 WBC RBC Hgb Hct MCV MCH MCHC RDW Plt Count MPV Immature Gran % Neutrophils % Band Neutrophils % Lymphocytes % Monocytes % Eosinophils % Basophils % Nucleated RBC % Absolute Neutrophils Absolute Lymphocytes Absolute Monocytes Absolute Eosinophils Absolute Basophils RBC Morphology Polychromasia Poikilocytosis Macrocytosis ABG pH ABG pCO2 ABG pO2 ABG HCO3 ABG Total CO2 ABG O2 Saturation ABG Base Excess VBG pH 7.29 L VBG pCO2 55 H VBG pO2 44 VBG HCO3 27 VBG Total CO2 25 VBG O2 Saturation 79 VBG Base Excess 0 Sodium 149 H Potassium 4.0 Chloride 114 H Carbon Dioxide 27.1 Anion Gap 7.9 BUN 27 H Creatinine 1.3 Estimated GFR/1.73 m2 53.25 Glucose 141 H Calcium 8.7 Magnesium
--- NOTE | 2020-03-29 15:48 | CMPROGNOTE_ITS ---
- If Service Date Differs Date of service: 03/29/20 Time of Service: 15:48 Care Management Progress Note S/O: Joaquín was lying in bed when CM visited with him today. His mental status has been altered during much of this admission, and during this visit he was not able to talk with CM. CM spoke to his RN, who reported having multiple phone calls today from his children requesting updates. CM offered for calls to be transferred to CM office to provide updates. Later, KAIT was requested to find A dvanced directive paperwork, as there is a possibility that Joaquín could be intubated if his condition worsens, but he is listed as a DNR/DNI. CM found the AD and provided it to the MD, who will call his HCA, Aiden, to discuss this possibility. CM will continue to follow. A: 79 year old male admitted to [facility] 03/24/19 for ALESIA due to rhabdomyolysis and elevated troponin P: Joaquín remains in ICU at this time; undetermined discharge plan. CM will continue to follow and support patient and family and address discharge planning needs.
--- NOTE | 2020-03-29 16:06 | RESPIRATORY ---
Pt had critical abg and was compliant with bipap for a few hours. After vbg showing pt's ph and CO2 was starting to normalize the pt began taking mask off and will no longer tolerate. Pt has a strong productive cough and has needed suctioning multiple times with mouth being moisturized via oral swabs and water. Pt has no gag and there is a concern that he will not maintain his airway sufficiently. Dr. Duncan has been notified, evaluated pt, and spoke with POA who wishes for pt to be intubated.
[2020-03-29] MEDS: PROPOFOL 1,000 MG/100 ML BTL 13.716 MG IVPB (16:25)
--- NOTE | 2020-03-29 16:49 | PDOC.ANES ---
Date of service: 03/29/20 Time of Service: 17:07 Anesthesia Note Notified of request for elective intubation by Clothing Cutter. 1613 Tiffany WORLEY and Westley Ron CRNA arrived in ICU, pt unable to follow commands, altered LOC, satting 98% on BiPap (15/5 FiO2 30% ). 1615 Timeout performed with ICU RNs and RT. Pt pre-oxygenated to 100% for 3 minutes. 1623 DISTRICT FIRE MANAGEMENT OFFICER administered 100 mg Propofol and 40 mg Rocuronium per anesthesia order. Smooth and atraumatic laryngoscopy by Tiffany WORLEY under supervision of Westley Ron CRNA with glidescope MAC 4 blade, grade 2 view, original dentition maintained, noted copious dry secretions in airway obstructing view which were suctioned prior to intubation. Endotracheal tube secured 22cm at gumline, positive EtO2, chest rise and bilat breath sounds upon auscultation. Pt became hypotensive after induction, treated with neosynephrine and ephedrine. Re-established hemodynamic stability, MAP 70 before anesthesia signed off. Debrief completed at 1645 with ICU staff, RT and Anesthesia. Sedation infusion per ICU physician.
--- NOTE | 2020-03-29 17:53 | DI.RAD_ITS ---
EXAM: XR PORTABLE CHEST AP CLINICAL HISTORY: tube placement TECHNIQUE: 2D digital imaging was performed. COMPARISON: CR,XR XR PORTABLE CHEST AP from 03/29/2020 FINDINGS: MEDIASTINUM: Normal. HEART: Normal. PULMONARY VASCULATURE: Normal. LUNGS: There has been significantly improved aeration of the left lung base. PLEURAL SPACE: No pleural effusion or pneumothorax. BONE:Within normal limits for the patient's age. OTHER FINDINGS:The endotracheal tube is in good position. The tip lies 3.5 cm above the carmen. The nasogastric tube passes into the stomach. IMPRESSION: 1. Endotracheal tube and nasogastric tubes in good position. 2. Improved aeration of the left lung base. DATA REPOSITORY: RADIATION DOSE DELIVERED:
--- NOTE | 2020-03-29 18:07 | DI.VRAD_ITS ---
PROCEDURE INFORMATION: Exam: XR Chest, 1 View Exam date and time: 03/29/2020 5:54 PM Age: 79 years old Clinical indication: Device placement; Ng tube; Patient HX: Tube placement. TECHNIQUE: Imaging protocol: XR of the chest Views: 1 view. COMPARISON: CR XR PORTABLE CHEST AP 03/29/2020 10:10 AM FINDINGS: Tubes, catheters and devices: Endotracheal tube is 3.5 cm above the carmen. NG tube is present within the stomach. Lungs: Improved aeration left lung base. Pleural spaces: Unremarkable. No pleural effusion. No pneumothorax. Heart/Mediastinum: Unremarkable. No cardiomegaly. Bones/joints: Unremarkable. IMPRESSION: 1. Appropriate position of endotracheal and nasogastric tube. 2. Improvement in left lower lobe aeration. Dictated and Authenticated by: Frank Ramirez MD. Ordering:ANNEMARIE Agarwal MD
[2020-03-29 18:08] LABS: BE 3 mmol/L (-2-3); HCO3 27 mmol/L (22-26); pCO2 38 mmHg (35-45); pH 7.45 (7.35-7.45); pO2 80 mmHg (80-105); sO2 97 % (95-98); tCO2 24 mmol/L (23-27)
[2020-03-29 18:12] LABS: Site Right Radial
[2020-03-29 18:13] LABS: FIO2L 30 L
[2020-03-29] MEDS: HYDROmorphone 2 MG/ML VIAL 0.5 MG IVP (18:21)
[2020-03-29] MEDS: POTASSIUM CHLORIDE/D5-0.45NACL 1,000 ML 125 MEQ IV (19:28)
[2020-03-29] MEDS: PROPOFOL 1,000 MG/100 ML BTL 32.004 MG IVPB ×2 (20:00→22:18)
[2020-03-30] VITALS (49 sets, daily range): BP systolic 98–149; BP diastolic 47–103; PULSE 53–161; RESP 14–27; TEMP 35.9–36.5; O2SAT 93–100
[2020-03-30] MEDS: PROPOFOL 1,000 MG/100 ML BTL 32.004 MG IVPB ×2 (01:53→04:40)
[2020-03-30] MEDS: POTASSIUM CHLORIDE/D5-0.45NACL 1,000 ML 125 MEQ IV ×2 (02:25→10:23)
[2020-03-30 02:35] LABS: Troponin I 0.09 ng/mL (<0.06)
[2020-03-30] MEDS: Heparin 5,000 UNITS/ML VIAL 5000 UNITS SC ×3 (02:57→18:46)
[2020-03-30] MEDS: Metoprolol 5 MG/5 ML VIAL 2.5 MG IVP ×4 (04:43→16:23)
--- NOTE | 2020-03-30 05:45 | DI.RAD_ITS ---
EXAM: XR PORTABLE CHEST AP POST LINE CLINICAL HISTORY: POST LINE TECHNIQUE: 2D digital imaging was performed. COMPARISON: CR,XR XR PORTABLE CHEST AP from 03/29/2020 FINDINGS: MEDIASTINUM: Normal. HEART: Normal. PULMONARY VASCULATURE: Normal. LUNGS: There is a persistent small left basilar infiltrate which is unchanged. PLEURAL SPACE: There is blunting of the left costophrenic angle which may represent a small effusion. BONE:Within normal limits for the patient's age. OTHER FINDINGS:There has been interval placement of a right PICC line. The tip of the catheter is se en in good position in the superior vena cava. The nasogastric tube tip is seen in the stomach. The tip of the endotracheal tube is present 6 cm above the carmen. The lung apices are not included on this examination. IMPRESSION: Interval placement of a right PICC line. The tip of the catheter seen in good position in the superi or vena cava. Endotracheal tube and nasogastric tube are in position as described above. Persistent left basilar infiltrate. Question of a small left pleural effusion. DATA REPOSITORY: RADIATION DOSE DELIVERED:
--- NOTE | 2020-03-30 06:28 | DI.VRAD_ITS ---
PROCEDURE INFORMATION: Exam: XR Chest, 1 View Exam date and time: 03/30/2020 6:15 AM Age: 79 years old Clinical indication: Device placement; Prior surgery; Surgery date: 6+ months; Surgery type: HX of heart artery stent; Patient HX: Picc line placement TECHNIQUE: Imaging protocol: XR of the chest Views: 1 view. COMPARISON: CR XR PORTABLE CHEST AP 03/29/2020 5:40 PM FINDINGS: Tubes, catheters and devices: Right-sided PICC line in place tip in SVC. NG tube extends into stomach Lungs: Unremarkable. No consolidation. Pleural spaces: Small left pleural effusion may be present Heart/Mediastinum: Unremarkable. No cardiomegaly. Bones/joints: Unremarkable. IMPRESSION: Right-sided PICC line in place tip in SVC. Dictated and Authenticated by: Beau Schreiber MD. Ordering:ANGELA Yanes MD
[2020-03-30 06:48] LABS: Abs Immature Grans 0.11 10^3/uL (0.0-0.06); HCT 34.3 % (40.0-50.0); MCH 33.3 pg (27.0-33.0); MCHC 32.1 % (32.0-36.0); MCV 103.9 fL (80-95); MPV 9.6 fL (8.0-11.0); Nucleated RBC 0 %; Platelet Count 258 10^3/uL (130-400); RDW 15.4 % (11.8-14.1); RDW-SD 58.4 fL; WBC 9.52 10^3/uL (4.4-10.8)
[2020-03-30 07:04] LABS: Anion Gap 6.9 mmol/L (3-11); BUN 25 mg/dL (7-18); CO2 28.1 mmol/L (21.0-32.0); CREATININE 1.3 mg/dL (0.70-1.30); Calcium 8.1 mg/dL (8.5-10.1); Chloride 112 mmol/L (98-107); Estimated GFR 53.25 (mL/min/1.73m2); Glucose 157 mg/dL (74-106); Potassium 3.7 mmol/L (3.5-5.1); Sodium 147 mmol/L (136-145)
[2020-03-30 07:08] LABS: Troponin I 0.11 ng/mL (<0.06)
[2020-03-30 07:21] LABS: Absolute Lymphocyte Count 1.71 10^3/uL (1.2-3.4); Absolute Neutrophil Count 6.28 10^3/uL (1.2-6.7)
[2020-03-30 07:22] LABS: Absolute Eosinophil Count 0.29 10^3/uL (0.0-0.7); Absolute Monocyte Count 1.14 10^3/uL (0.1-0.8); Diff Comment Manual Differential; Macrocytosis 2+; Metamyelocytes % 1; Poikilocytes 1+
[2020-03-30] MEDS: PROPOFOL 1,000 MG/100 ML BTL 27.432 MG IVPB (07:46)
[2020-03-30 08:03] LABS: BE 3 mmol/L (-2-3); HCO3 27 mmol/L (22-26); pCO2 38 mmHg (35-45); pH 7.46 (7.35-7.45); pO2 96 mmHg (80-105); sO2 98 % (95-98); tCO2 25 mmol/L (23-27)
[2020-03-30 08:06] LABS: FIO2 25 %; Site Right Radial
[2020-03-30 08:39] LABS: Site Right Radial
--- NOTE | 2020-03-30 09:02 | CMPROGNOTE_ITS ---
Care Management Progress Note S/O: Joaquín was lying in bed when CM visited with him today. His mental status has been altered during much of this admission, staff was providing personal care when CM first attempted to visit and he was vented. Per RT, he was successfully extubated this afternoon but remains drowsy and is unable to meaningfully engage. Per MD, transfer is being considered at this time. CM will continue to follow. A: 79 year old male admitted to [facility] 03/24/19 for ALESIA due to rhabdomyolysis and elevated troponin P: Joaquín remains in ICU at this time; undetermined discharge plan-possible transfer being considered. CM will continue to follow and support patient and family and address discharge planning needs.
[2020-03-30] MEDS: Nystatin POWDER 60 GM JAR TP ×3 (10:02→20:00)
[2020-03-30] MEDS: Allopurinol 100 MG TAB PO (10:03)
[2020-03-30] MEDS: Normal Saline Flush 10 ML SYR IVP ×2 (10:37→12:35)
--- NOTE | 2020-03-30 14:16 | W.NUTCONSULT ---
Date of service: 03/30/20 Time of Service: 14:17 Nutritional Consult ASSESSMENT: 79 year old male admitted 6 days ago with altered mental status, sedated with propofol (providing 430 kcal per day), IV fluids. Intubated 03/29/20, extubated this afternoon. In view of need for sedation, and extended period of NPO status (DAY 6), recommend starting nutrition support either as enteral nutrition if GI function adequat( while on propofol) or TPN if impaired GI function. At high nutritional risk. Estimated Needs: 7611-7991 kcal, 76-85 g protein, 2280 ml fluid INTERVENTION: Nutrition support. if enteral: recommend Jevity 1.5 @ 45 cc/hour (1080 ml), flush 250 ml q 4 hours. Provides total of 1620 kcal, 60 g protein, 2220 ml fluid. D/c IV fluids when enteral support provided. check for residuals per protocol. If TPN: recommend D10/4.25% 83cc/hour, 20% lipids 250 ml/day 31.25 ml/hr MONITORING AND EVALUATION: weight, po intake, labs Time Spent in Nutritional Counseling and Treatment: 10
--- NOTE | 2020-03-30 15:10 | DI.CT_ITS ---
EXAM: CT HEAD WO CLINICAL HISTORY: eye deviation. TECHNIQUE: Imaging Protocol: Axial computed tomography images with coronal and sagittal reformatted images were created and reviewed COMPARISON: CT CT BRAIN NECK CTA from 03/28/2020 FINDINGS: Ventricles and Extra axial spaces: Normal in size and morphology for the patient's age. Hemorrhage: None. Cerebral parenchyma: There are areas of decreased attenuation in the white matter consistent with chr onic microvascular ischemic disease. No acute territorial infarct is seen. Midline shift: None. Brainstem/Cerebellum: Normal. Calvarium: Normal. Visualized Paranasal sinuses/Mastoids: There is mucosal thickening in the visualized paranasal sinuse s bilaterally. Mastoid air cells are clear. Soft Tissues: Unremarkable. A nasogastric tube is present. IMPRESSION: No acute intracranial process. RADIATION DOSE DELIVERED: 894.2mGy.cm Total DLP DATA REPOSITORY: All CT scans at this facility are submitted to the National Radiology Data Registry (NRDR) Dose Index Registry (DIR) with the [employer] (A[employer]). RADIATION OPTIMIZATION: All CT scans at this facility use at least one of these dose optimization te chniques: automated exposure control; mA and/or kV adjustment per patient size (includes targeted exa ms where dose is matched to clinical indication); or iterative reconstruction.
--- NOTE | 2020-03-30 16:18 | PT.INNT ---
Date of service: 03/30/20 Time of Service: 09:00 PT Notes Visit Reasons: ALESIA DUE TO RHABDOMYOLYSIS, ELEVATED TROPONIN On hold for PT services per Hospitalist's order due to inability to participate in therapy in any way at this time. Patient will be reassessed tomorrow if he will be appropriate for continued services.
--- NOTE | 2020-03-30 18:00 | DI.RAD_ITS ---
EXAM: XR PORTABLE CHEST AP CLINICAL HISTORY: Increased pink creamy sputum production TECHNIQUE: 2D digital imaging was performed. COMPARISON: CR,XR XR PORTABLE CHEST AP POST LINE from 03/30/2020 FINDINGS: MEDIASTINUM: Normal. HEART: Heart size is stable and at the upper limits of normal to mildly enlarged. PULMONARY VASCULATURE: Mild to moderate pulmonary venous congestion. LUNGS: There is an opacity again seen in the left lung base. A small infiltrate or effusion should b e considered. Poor inspiration. PLEURAL SPACE: No pleural effusion or pneumothorax. BONE:Within normal limits for the patient's age. OTHER FINDINGS:The endotracheal tube appears to been removed. The tip of the nasogastric tube is in the proximal stomach. The tip of the right PICC line is in good position in the superior vena cava. IMPRESSION: 1. Left basilar infiltrate or small pleural effusion. 2. Low lung volumes. Increased bronchovascular markings which may reflect a low lung volumes versus pulmonary venous congestion. DATA REPOSITORY: RADIATION DOSE DELIVERED:
--- NOTE | 2020-03-30 18:19 | PGE_ITS ---
Date of Service Date of service: 03/30/20 Time of Service: 18:19 Assessment and Plan Assessment and plan (1) Mental status, decreased: Status: Acute Assessment and plan: Mental status had been improving with resolution of of alcohol withdrawal, not recover after sedation given for CT scan on March 28. ABG at that point clearly showed respiratory acidosis. Acute hypernatremia may also be contributing, this was corrected. Patient did wear his mental status with BiPAP, but did not tolerate ongoing BiPAP and was not protecting his airway. At that point he was intubated. CT of the head and neck with contrast March 28 did not show acute stroke, but it did show critical carotid stenosis on the left, and I am still concerned with a brainstem lesion and signs on neurologic exam of cranial nerve XI and XII deficit. CT head without contrast again negative today. His neurologic compromise may be metabolic, but I still think an MRI would be useful to rule out brainstem ischemia when we are able to do it. (2) Acute hypernatremia: Status: Acute Assessment and plan: I do not think this was making a large contribution to his mental status changes. He is back on D5 water, follow sodium in the morning. (3) Acute hyperactive alcohol withdrawal delirium: Status: Acute Assessment and plan: He has not shown signs of alcohol withdrawal since March 27.. He has received IV vitamin repletion since admission 5 days ago, discontinued banana bag. Soft restraints as needed only for safety, not restraint currently. We will avoid benzodiazepines if he becomes delirious again given a triggered his last episode of respiratory depression. And use as needed neuroleptics. (4) Acute kidney injury superimposed on chronic kidney disease: Status: Resolved Assessment and plan: Due to acute dehydration as well as mild rhabdomyolysis (CPK 352; resolved). Cr is now at baseline of around 1.3. Continue gentle IVF as long as the patient is NPO. Holding the diuretics. Consider restarting losartan if blood pressures remain stable. US renal without hydronephrosis. (5) Rhabdomyolysis: Status: Resolved Assessment and plan: As above Consider seizure (6) Elevated troponin: Status: Acute Assessment and plan: in setting of ALESIA and rhabdo. Trend was flat, not consistent with ACS on this admission. Levels even after pressor use overnight were not significantly changed. Echocardiogram done March 25 showed only mild reduced ejection fraction about 50%. (7) Leucocytosis: Status: Resolved Assessment and plan: Most likely reactive to fall/rhabdomyolysis, but considering infectious etiologies as well as procalcitonin was elevated and is coming down with empiric ceftriaxone. High blood cell count has normalized, ceftriaxone discontinued March 29. Has had 3 around the time intubation did suggest possible infiltrate. We will repeat this evening and cover for pneumonia if there are still looks like there is a focal infiltrate. (8) Bladder neck contracture: Status: Acute Assessment and plan: s/p burgos by Dr Marshall. Bleeding around catheter has stopped. D/c burgos and voiding trial only with Dr Marshall in house, and stable. (9) CAD (coronary artery disease): Status: Chronic Assessment and plan: No ACS on this admission, see above. He has been restarted on metoprolol per NG tube. Consider restarting losartan and atorvastatin for NG as well. . (10) Hypertension: Status: Chronic Assessment and plan: Resuming outpatient medication as tolerated (11) Ischemic cardiomyopathy: Status: Chronic Assessment and plan: As above. EF with preserved EF on this admission. Tolerating IVF, but he may be getting some fluid overload after extubation, chest x-ray as above. Continue to monitor respiratory. (12) Alcohol dependence: Status: Chronic Assessment and plan: Should discuss treatment options for alcohol use disorder and make a plan prior to discharge once his mental status has improved. (13) DVT prophylaxis: Status: Acute Assessment and plan: Sc heparin (14) Discharge planning issues: Status: Acute Assessment and plan: I was able to talk to his DPOA son Aiden, who feels like his father would have wanted short-term intubation if that was his best shot for recovery, and he is now full code. Subjective Subjective Patient reports: denies diarrhea and fever Interval history since last seen: 24-hour events: Patient intubated for discussion with family about his goals of care and review of his advanced directive. Hypotensive post intubation, required pressors overnight With withdrawal of sedation, patient appeared ready to be extubated. Is reviewed with the ICU consult [facility], agreed to proceed with extubation CT head without contrast repeated due to gaze deviation post activation, negative It is not sedated. After oliguric overnight, urine output is improving per nursing. Patient is coughing more and mental status slowly improving. Exam Narrative Exam Narrative: General: elderly male, depressed s, appears to register commands but unable to follow them. Attempts to speak but most words not eligible, somewhat hoarse and garbled HEENT: Conjunctive a clear, pupils around 3 mm and reactive bilaterally. He is able to move eyes in all directions, not consistently, gaze trends towards left upper quadrant Heart: RRR with occasional irregular beat, no murmurs Lungs: CTAB but with only shallow breaths. Abdomen: soft, nontender, nondistended Extremities: no no edema. Bilateral feet somewhat mottled and cool, but pulses are palpable dorsalis pedis bilateral. Neurologic: Unable to perform neurologic exam. He is moving 4 extremities, without clear facial droop or other focal weakness on limited exam. Ocular movements as above. Gag reflex appears improved from yesterday. Objective Last Vital Signs Temp 36.4 C L 03/30/20 16:31 Pulse 85 03/30/20 16:23 Resp 15 03/30/20 16:31 BP 117/60 03/30/20 13:31 Pulse Ox 99 03/30/20 13:31 Laboratory Results - last 24 hr 03/29/20 03/29/20 03/30/20 09:43 22:35 02:00 WBC RBC Hgb Hct MCV MCH MCHC RDW Plt Count MPV Immature Gran % Neutrophils % Lymphocytes % Monocytes % Eosinophils % Basophils % Metamyelocytes % Nucleated RBC % Absolute Neutrophils Absolute Lymphocytes Absolute Monocytes Absolute Eosinophils Absolute Basophils RBC Morphology Poikilocytosis Macrocytosis ABG Sample Site Right radial ABG pH ABG pCO2 ABG pO2 ABG HCO3 ABG Total CO2 ABG O2 Saturation ABG Base Excess Oxygen Liter Flow FiO2 Sodium Potassium Chloride Carbon Dioxide Anion Gap BUN Creatinine Estimated GFR/1.73 m2 Glucose Calcium Troponin I 0.10 H* 0.09 H* 03/30/20 03/30/20 03/30/20 06:15 06:15 06:15 WBC 9.52 RBC 3.30 L Hgb 11.0 L D Hct 34.3 L MCV 103.9 H MCH 33.3 H MCHC 32.1 RDW 15.4 H Plt Count 258 MPV 9.6 Immature Gran % See Differential Neutrophils % 66.0 Lymphocytes % 18.0 Monocytes % 12.0 Eosinophils % 3.0 Basophils % 0.0 Metamyelocytes % 1 Nucleated RBC % 0 Absolute Neutrophils 6.28 Absolute Lymphocytes 1.71 Absolute Monocytes 1.14 H Absolute Eosinophils 0.29 Absolute Basophils 0.00 RBC Morphology See below Poikilocytosis 1+ Macrocytosis 2+ ABG Sample Site ABG pH ABG pCO2 ABG pO2 ABG HCO3 ABG Total CO2 ABG O2 Saturation ABG Base Excess Oxygen Liter Flow FiO2 Sodium 147 H Potassium 3.7 Chloride 112 H Carbon Dioxide 28.1 Anion Gap 6.9 BUN 25 H Creatinine 1.3 Estimated GFR/1.73 m2 53.25 Glucose 157 H Calcium 8.1 L Troponin I 0.11 H* 03/30/20 07:56 WBC RBC Hgb Hct MCV MCH MCHC RDW Plt Count MPV Immature Gran % Neutrophils % Lymphocytes % Monocytes % Eosinophils % Basophils % Metamyelocytes % Nucleated RBC % Absolute Neutrophils Absolute Lymphocytes Absolute Monocytes Absolute Eosinophils Absolute Basophils RBC Morphology Poikilocytosis Macrocytosis ABG Sample Site Right radial ABG pH 7.46 H ABG pCO2 38 ABG pO2 96 ABG HCO3 27 H ABG Total CO2 25 ABG O2 Saturation 98 ABG Base Excess 3 Oxygen Liter Flow A/c 390/18/5 FiO2 25 Sodium Potassium Chloride Carbon Dioxide Anion Gap BUN Creatinine Estimated GFR/1.73 m2 Glucose Calcium Troponin I Objective Narrative Objective Narrative: CT head negative
[2020-03-30] MEDS: DEXTROSE 5%-WATER 1,000 ML 75 ML IV (18:42)
--- NOTE | 2020-03-30 19:45 | DI.VRAD_ITS ---
PROCEDURE INFORMATION: Exam: XR Chest, 1 View Exam date and time: 03/30/2020 6:36 PM Age: 79 years old Clinical indication: Cough; Patient HX: Increased pink creamy sputum production TECHNIQUE: Imaging protocol: XR of the chest Views: 1 view. COMPARISON: CR XR PORTABLE CHEST AP POST LINE 03/30/2020 5:53 AM FINDINGS: Tubes, catheters and devices: A nasogastric tube is seen in the stomach. Lungs: There is no evidence of focal pulmonary consolidation. Pleural spaces: There is a hazy opacity at the left lung base that may be secondary to a small left pleural effusion. No pneumothorax is identified. Heart/Mediastinum: There is stable cardiomegaly. Moderate cardiopulmonary congestion is noted. Bones/joints: No acute fractures are seen. IMPRESSION: Cardiomegaly, cardiopulmonary congestion and small left pleural effusion. Dictated and Authenticated by: Casey Rosario MD. Ordering:ANNEMARIE Agarwal MD
[2020-03-30] MEDS: Normal Saline Flush 10 ML SYR 20 ML IVP (20:00)
[2020-03-31] VITALS (75 sets, daily range): BP systolic 98–152; BP diastolic 51–95; PULSE 60–129; RESP 15–32; TEMP 34–36.8; O2SAT 90–99
[2020-03-31] MEDS: Heparin 5,000 UNITS/ML VIAL 5000 UNITS SC ×3 (02:28→19:19)
[2020-03-31] MEDS: Metoprolol 5 MG/5 ML VIAL 2.5 MG IVP ×3 (06:14→19:18)
[2020-03-31] MEDS: Normal Saline Flush 10 ML SYR 20 ML IVP ×2 (08:30→21:21)
[2020-03-31] MEDS: Nystatin POWDER 60 GM JAR TP ×3 (08:30→20:45)
--- NOTE | 2020-03-31 08:53 | PDOC.CMPRO ---
Care Management Progress Note S/O: Joaquín was lying in bed when CM visited with him today. His mental status has been altered during much of this admission, more alert today per MD though not during multiple attempts when CM tried to connect with him. He sat up in the chair for 45 minutes today, transferring with stedy lift and two assist. Per report, Joaquín will likely require support with disposition, CM is hopeful to have this discussion with Joaquín soon. CM continues to follow. A: 79 year old male admitted to [facility] 03/24/19 for ALESIA due to rhabdomyolysis and elevated troponin P: Joaquín remains in ICU at this time; undetermined discharge plan-possible SNF? Awaiting period of medical stability and further evaluation to determine baseline level of functioning. CM will continue to follow and support patient and family and address discharge planning needs.
[2020-03-31 09:04] LABS: HCT 31.1 % (40.0-50.0)
--- NOTE | 2020-03-31 13:29 | PGE_ITS ---
Date of Service Date of service: 03/31/20 Time of Service: 08:15 Assessment and Plan Assessment and plan (1) Acute hypernatremia: Status: Acute Assessment and plan: Na now improved to 147. On D5W Monitor (2) Acute hyperactive alcohol withdrawal delirium: Status: Acute Assessment and plan: No signs/sxs of withdrawal since 03/27/2020. Sales Assistant Displays following for outpt f/u. (3) Acute kidney injury superimposed on chronic kidney disease: Status: Resolved Assessment and plan: Cr 1.3; in her baseline range (4) Ischemic cardiomyopathy: Status: Chronic Assessment and plan: Preserved EF Now on D5W at 75ml/hr. Has had NG to suction; d/c'd this AM. No oral intake d/t somnolence. Pulmonary vasc congestion on XR. Consider a dose of lasix. (5) Leucocytosis: Status: Resolved Assessment and plan: Now normalized. Not on antibiotics. Monitor closely for signs/sxs of aspiration. (6) Mental status, decreased: Status: Acute Assessment and plan: Had become more somnolent after sedation given for CT head. Today, has increased alertness and more verbal. CT head and neck with contrast on 03/28 w/o evidence of stroke but with critical carotid stenosis on left. His gag reflex and shoulder shrug were concerning for possible brainstem ischemia; both have improved. Also, tongue know protrudes midline. Consideration of MRI to evaluate further, but out of concerns for risks of sedation, will continue to monitor. Subjective Subjective Patient reports: afebrile; denies diarrhea and vomiting Interval history since last seen: Pt has a spit guard over his head; had been spitting at staff. Tells the nurse he doesn't want her in the room He is more alert today. Speech is not clear but is discernable and improved per nursing. Had a BM He has upper airway congestion; clears throat frequently. + cough. Exam Const General: cooperative and no acute distress Nutritional Appearance: overweight Orientation: awake and confused Eyes Alignment and Position: alignment normal Pupils: PERRL Neck Neck: nontender and no JVD Resp Effort & Inspection: normal respiratory effort Auscultation: clear to auscultation bilaterally and diminished lung sounds Cardio Rate: regular rate Rhythm: regular rhythm Heart Sounds: S1 normal and S2 normal GI Palpation: soft and nontender Extrem General: no pedal edema and no calf tenderness Objective Last Vital Signs Temp 36.6 C 03/31/20 06:00 Pulse 74 03/31/20 07:31 Resp 24 03/31/20 06:31 BP 132/70 03/31/20 07:31 Pulse Ox 94 03/31/20 04:49 Laboratory Results - last 24 hr 03/31/20 03/31/20 03/31/20 08:50 08:50 09:45 Hgb 10.0 L Hct 31.1 L PT 10.0 INR 1.0 Glucose Cancelled
--- NOTE | 2020-03-31 14:43 | PT.INTREAT ---
Date of service: 03/31/20 Time of Service: 11:05 PT Notes Visit Reasons: ALESIA DUE TO RHABDOMYOLYSIS, ELEVATED TROPONIN Inpatient Physical Therapy Treatment Note [facility] Date: 03/31/2020 PRECAUTIONS: Fall, agitation at times SUBJECTIVE: Joaquín is agreeable to getting up. OBJECTIVE: PAIN: Patient c/o back and buttock pain in supine and with sitting up in chair BED MOBILITY/TRANSFERS Supine-sit: Mod A with HOB at 40 degrees Sit-supine: Max A x2 with HOB flat Sit-stand: Min A + Mod A with STEDY in a.m.; Mod A x2 with STEDY in p.m. Stand-sit: CGA x2 with STEDY in a.m.; Min A x2 with STEDY in p.m. GAIT: Attempt x2 Assistive Device: FWW Weight bearing: Full Assist: Mod A x 2 Distance: Unable to take steps at this time THEREX: Performed passive ankle pumps and hip and knee flexion, bilaterally. Patient refused to perform any ther ex actively. ASSESSMENT: Patient was able to stand utilizing both the STEDY and then the FWW in p.m. He demonstrates significant global weakness and cannot support himself enough to take steps with FWW support. He would benefit from global strengthening and continued transfer and bed mobility training. PLAN: Continue with bed mobility and transfer training and global strengthening for improved mobility. TREATMENT CODE/TIME: Session 1: 15 minutes; [id number] Session 2: 20 minutes; [id number]
--- NOTE | 2020-03-31 15:35 | CHAPLAIN ---
Joaquín was sitting up for the first time in several days. His WORKERS COMPENSATION CLAIMS SUPERVISOR Payton was with him. He said he wanted to take a shower and Payton explained that he needs to get stronger first. He shared a little bit of personal history with us, telling us about being in the [place], traveling to [place] and living [place] . At times, Joaquín mumbled when he spoke so it was hard to understand everything he said. I will continue to visit.
--- NOTE | 2020-03-31 15:47 | SPP_ITS ---
Date of Service March 31, 2020 Subjective OFFICE RECEPTIONIST consult request received this afternoon for swallow assessment. Pt has been NPO since admission in the setting of rhabdomyolysis, acute alcohol withdrawals, altered mental status, and somnolence. Per nursing, pt is more alert today, though orientation remains very poor. His speech is quite garbled. Nursing reports that pt's family describes pt to be articulate at baseline. OFFICE RECEPTIONIST provided basic yes/no communication visual to nursing to assist with communication today. Pt is managing secretions better. He has been up in his chair x2 for 15 minutes, though remains very weak. With pt's increased alertness, nursing has trialed small sips of water today. Nurse, Jessica, reports that pt able to manage a few small sips of water and that he was able to control bolus via cup sip, though he did clear his throat afterwards. OFFICE RECEPTIONIST arrived in ICU this afternoon to assess the pt. Pt sleeping in his bed upon arrival. Pt had just transferred from his chair to the bed. OFFICE RECEPTIONIST attempted to wake pt via verbal and tactile cues. OFFICE RECEPTIONIST requested nursing assistance after several unsuccessful attempts to arouse pt. Pt opened his eyes for familiar nurse, but was unable to maintain. Pt very quickly returning to sleep across numerous attempts to arouse. Nursing indicated that pt was exceedingly fatigued. Pt unable to participate in swallow trials today as unsafe for PO intake given level of fatigue and inability to remain alert. Nursing states that pt has been cleared to try small sips of water when awake. If pt is to trial small sips of water, ensure that pt is fully awake, alert, and positioned upright 90 degrees. Can try presenting water via teaspoon sips as well or straw, with nursing pinching the straw as needed to control flow for small sips. Discontinue PO trials of water if pt demonstrates s/s of aspiration during or immediately after the swallow, such as: cough, throat clear, watery eyes, runny nose, sneeze. This OFFICE RECEPTIONIST to communicate need to re-attempt swallow evaluation with attending OFFICE RECEPTIONIST tomorrow. Nursing to contact attending OFFICE RECEPTIONIST when pt is awake and alert to try to coordinate appropriate time for assessment tomorrow. Coding
[2020-03-31] MEDS: Furosemide 40 MG/4 ML VIAL IVP (15:56)
[2020-03-31] MEDS: DEXTROSE 5%-WATER 1,000 ML 75 ML IV (20:06)
[2020-04-01] VITALS (70 sets, daily range): BP systolic 73–156; BP diastolic 28–102; PULSE 44–96; RESP 16–38; TEMP 34–37; O2SAT 85–100
[2020-04-01] MEDS: Metoprolol 5 MG/5 ML VIAL 2.5 MG IVP (00:42)
[2020-04-01] MEDS: Heparin 5,000 UNITS/ML VIAL 5000 UNITS SC ×3 (02:11→17:54)
[2020-04-01 07:50] LABS: Abs Immature Grans 0.09 10^3/uL (0.0-0.06); Absolute Basophil Count 0.05 10^3/uL (0.0-0.2); Absolute Eosinophil Count 0.13 10^3/uL (0.0-0.7); Absolute Lymphocyte Count 1.42 10^3/uL (1.2-3.4); Absolute Monocyte Count 0.92 10^3/uL (0.1-0.8); Absolute Neutrophil Count 4.98 10^3/uL (1.2-6.7); Basophils % 0.7; Eosinophils % 1.7; HCT 31.6 % (40.0-50.0); HGB 10.1 g/dL (13.5-17.5); Immature Grans % 1.2; Lymphocytes % 18.7; MCH 32.8 pg (27.0-33.0); MCV 102.6 fL (80-95); MPV 9.7 fL (8.0-11.0); Monocytes % 12.1; Neutrophils % 65.6; Nucleated RBC 0 %; Platelet Count 196 10^3/uL (130-400); RBC 3.08 10^6/uL (4.36-5.78); RDW 14.9 % (11.8-14.1); RDW-SD 55.6 fL; WBC 7.59 10^3/uL (4.4-10.8)
[2020-04-01 07:59] LABS: Anion Gap 5.8 mmol/L (3-11); BUN 14 mg/dL (7-18); CO2 28.2 mmol/L (21.0-32.0); CREATININE 0.8 mg/dL (0.70-1.30); Calcium 8.1 mg/dL (8.5-10.1); Chloride 107 mmol/L (98-107); Glucose 95 mg/dL (74-106); Magnesium 1.5 mg/dL (1.8-2.4); Potassium 3.2 mmol/L (3.5-5.1); Sodium 141 mmol/L (136-145)
--- NOTE | 2020-04-01 08:22 | OT.INNT ---
Date of service: 04/01/20 Time of Service: 07:30 Occupational Therapy Notes 04/01/20 OT attempted to consult with pt who is lethargic and unable to respond to OT verbally with minimal eye contact. He goes in and out of responsiveness. OT discusses with RN about pts baseline, it is reported that pt lives alone. However at this time, pt is unable to participate in OT consult and unable to perform his ADLs without max (A). OT will attempt to further consultation tomorrow. Jody Maldonado [facility]
[2020-04-01] MEDS: Normal Saline Flush 10 ML SYR 20 ML IVP ×3 (09:25→21:11)
[2020-04-01] MEDS: Nystatin POWDER 60 GM JAR TP ×2 (09:25→21:15)
--- NOTE | 2020-04-01 10:27 | PDOC.CMPRO ---
- If Service Date Differs Date of service: 04/01/20 Time of Service: 10:27 Care Management Progress Note S/O: S/O: Joaquín had a great day today. He walked with PT about 10 feet, which is much improved. CM talked with him about his discharge plan, and he is willing to go to a SNF prior to going home. His speech is garbled, but CM was able to have a conversation with him regarding his care plan. He agreed to referrals being sent to local facilities, [facility] and the [facility]. CM will continue to follow. A: 79 year old male admitted to [facility] 03/24/19 for ALESIA due to rhabdomyolysis and elevated troponin P: Joaquín remains in ICU at this time; undetermined discharge plan-possible SNF? Awaiting period of medical stability and further evaluation to determine baseline level of functioning. CM will continue to follow and support patient and family and address discharge planning needs.
[2020-04-01] MEDS: DEXTROSE 5%-WATER 1,000 ML 75 ML IV (10:45)
--- NOTE | 2020-04-01 12:34 | PTTR_ITS ---
Date of service: 04/01/20 Time of Service: 12:34 PT Notes Visit Reasons: ALESIA DUE TO RHABDOMYOLYSIS, ELEVATED TROPONIN Inpatient Physical Therapy Treatment Note [facility] Date: 04/01/2020 PRECAUTIONS: Fall. Soft restraints in place. Behavioral changes limit activity participation. SUBJECTIVE: Much improved sensorium today. No agitation observed. Pleasant and more receptive to session participation. Denies any pain throughout. Did indicate fatigue at end of each session. Continues to be bowel and bladder incontinence. OBJECTIVE: General observation: Supine in bed. Garcia catheter in place. Telemetry monitoring in place. Soft restraints in place. Level of alertness much more improved. Quicker response time to instructions. PAIN: None reported BED MOBILITY/TRANSFERS Rolling minimal assist Supine to sit minimal assist with HOB at 45 degrees Sit to supine in the afternoon session, minimal assist of 2 due to fatigue Sit to stand minimal assist of 2 Stand to sit contact-guard assist of 2 Bed to chair minimal assist of 2 GAIT: Assistive Device: FWW Weight bearing: Full Assist: Minimal assist of this PT and STUDIO OPERATIONS ENGINEER IN CHARGE Ruthyansudheer and IV pole management of nurse العراقي Distance: Tolerated 8 small steps, 1 turn, and 2 step backs from bedside to bedside chair with moderate verbal cueing given for safety and walker management. In the afternoon, patient tolerated 25 feet +15 feet of short distance ambulation from bedside to the ICU hallway using front wheeled walker with full weightbearing with contact-guard assist of this PT and nurse العراقي and wheelchair follow of Nurse Tyler Deviation: Riddhi increasing. Step height increasing. MInimal SOB after after noon walk. THEREX: Performed seated level range of motion exercises consisting of ankle DF/PF x20, L AQ's x10, hip flexion x10, and hip abduction x10. Also instructed with shoulder shoulder horizontal abduction/adduction x10, shoulder and elbow flexion/extension x10, and forward punches x10 without undue breathing difficulty. ASSESSMENT: Significant improvement achieved today thus far in terms of ambulation distance, activity tolerance, and level of alertness. Joaquín will continue to benefit from skilled services in order to achieve initially established goals. He will benefit from half-way facility placement in order to achieve highest mobility level and in anticipation of discharge to home whenever safe. PLAN: Continue with PT POC to achieve set goals. TREATMENT CODE/TIME: Session 1??[id number] x 25 minutes, [id number] x 21 minutes beginning at 10:45 AM. Session 2??[id number] x 36 minutes beginning at 12:34 PM.
--- NOTE | 2020-04-01 14:38 | W.PM.PROGNOT ---
Date of Service Date of service: 04/01/20 Time of Service: 07:38 Assessment and Plan Assessment and plan (1) Acute hypernatremia: Status: Acute Assessment and plan: Resolved. Stop D5W. Now on oral diet. (2) Acute kidney injury superimposed on chronic kidney disease: Status: Resolved Assessment and plan: Creatinine now 0.8. (3) Ischemic cardiomyopathy: Status: Chronic Assessment and plan: Echocardiogram on 03/25/20: Normal left ventricular chamber size and wall thickness. Estimated ejection fraction is 50%. Unable to assess regional wall motion Resume his home lasix at 40mg po daily. (4) Alcohol dependence: Status: Chronic Assessment and plan: s/p withdrawal. Subjective Subjective Patient reports: no new complaints, feels better, bowel movement and afebrile; denies shortness of breath Exam Const General: cooperative and no acute distress Orientation: awake and oriented to person Eyes Sclera: sclerae normal EOM: EOM intact bilaterally Neck Neck: full ROM and supple Resp Effort & Inspection: normal respiratory effort Auscultation: clear to auscultation bilaterally Cardio Rate: regular rate Rhythm: regular rhythm Heart Sounds: S1 normal and S2 normal GI Palpation: soft and nontender Neuro General: patient awake, moves all extremities, no focal motor deficits and other (diffuse motor weakness) Cranial Nerves: no nystagmus, tongue midline and able to elevate shoulders bilaterally (Does not attempt ) Extrem General: no pedal edema and no calf tenderness Objective Last Vital Signs Temp 36 C L 04/01/20 09:00 Pulse 62 04/01/20 06:01 Resp 18 04/01/20 06:01 BP 90/50 L 04/01/20 14:20 Pulse Ox 95 04/01/20 06:01 Laboratory Results - last 24 hr 04/01/20 04/01/20 04/01/20 06:25 06:25 07:30 WBC Cancelled RBC Cancelled Hgb Cancelled Hct Cancelled MCV Cancelled MCH Cancelled MCHC Cancelled RDW Cancelled Plt Count Cancelled MPV Cancelled Immature Gran % Cancelled Neutrophils % Cancelled Band Neutrophils % Cancelled Lymphocytes % Cancelled Atypical Lymphs % Cancelled Monocytes % Cancelled Eosinophils % Cancelled Basophils % Cancelled Metamyelocytes % Cancelled Myelocytes % Cancelled Promyelocytes % Cancelled Other Cells % Cancelled Nucleated RBC % Cancelled Absolute Neutrophils Cancelled Absolute Lymphocytes Cancelled Absolute Monocytes Cancelled Absolute Eosinophils Cancelled Absolute Basophils Cancelled RBC Morphology Cancelled Polychromasia Cancelled Hypochromasia Cancelled Poikilocytosis Cancelled Basophilic Stippling Cancelled Anisocytosis Cancelled Microcytosis Cancelled Macrocytosis Cancelled Spherocytes Cancelled Tear Drop Cells Cancelled Ovalocytes Cancelled Stomatocytes Cancelled [place] Bodies Cancelled [place] Cells/Echinocytes Cancelled Acanthocytes (Spur) Cancelled Schistocytes Cancelled Sodium Cancelled 141 Potassium Cancelled 3.2 L Chloride Cancelled 107 Carbon Dioxide Cancelled 28.2 Anion Gap Cancelled 5.8 BUN Cancelled 14 D Creatinine Cancelled 0.8 D Estimated GFR/1.73 m2 Cancelled >= 60.00 Glucose Cancelled 95 D Calcium Cancelled 8.1 L Magnesium Cancelled 1.5 L 04/01/ 07:30 WBC 7.59 RBC 3.08 L Hgb 10.1 L Hct 31.6 L MCV 102.6 H MCH 32.8 MCHC 32.0 RDW 14.9 H Plt Count 196 MPV 9.7 Immature Gran % 1.2 Neutrophils % 65.6 Band Neutrophils % Lymphocytes % 18.7 Atypical Lymphs % Monocytes % 12.1 Eosinophils % 1.7 Basophils % 0.7 Metamyelocytes % Myelocytes % Promyelocytes % Other Cells % Nucleated RBC % 0 Absolute Neutrophils 4.98 Absolute Lymphocytes 1.42 Absolute Monocytes 0.92 H Absolute Eosinophils 0.13 Absolute Basophils 0.05 RBC Morphology Polychromasia Hypochromasia Poikilocytosis Basophilic Stippling Anisocytosis Microcytosis Macrocytosis Spherocytes Tear Drop Cells Ovalocytes Stomatocytes [place] Bodies [place] Cells/Echinocytes Acanthocytes (Spur) Schistocytes Sodium Potassium Chloride Carbon Dioxide Anion Gap BUN Creatinine Estimated GFR/1.73 m2 Glucose Calcium Magnesium
[2020-04-01] MEDS: Potassium Chloride Liquid 20 MEQ PKT PO ×2 (15:21→21:09)
[2020-04-01 16:37] LABS: C Diff PCR Negative (Negative)
--- NOTE | 2020-04-01 16:47 | PDOC.CMPRO ---
- If Service Date Differs Date of service: 04/01/20 Time of Service: 16:47
[2020-04-01] MEDS: Furosemide 40 MG TAB PO (17:51)
--- NOTE | 2020-04-01 17:59 | STREC_ITS ---
Date of service: 04/01/20 Time of Service: 17:59 Speech Therapy Recommendations Report ST Recommendations: Subjective: Patient assessed in evening with CARDIAC MONITOR TECHNICIAN for po intake (pureed solids, thin liquids via cup sip and controlled straw sip); alert and able to communicate with 50-60% intelligibility, able to read large print and demonstrate comprehension of single words. Pt able to demonstrate ability to spit secretions during oral care/when provided verbal direction today prior to PO intake. Only willing to take 2 tsp pureed texture, more willing to accept thin liquid (water) today. Overt s/s aspiration noted with thin liquid (water) via cup sip, (-) overt s/s aspiration noted with water via straw and instruction to reduce bolus volume. Relatively strong cough this evening, wet VQ resolves with cued TC. Full CARDIAC MONITOR TECHNICIAN Report to follow; please see recommendations below: Recommendations Full assist for all PO intake. Prior to PO intake: Ensure that pt is fully awake, alert, and positioned upright 90 degrees Thorough oral care (with friction from toothbrush on dentition, gumline, and on tongue as tolerated) During PO intake: IDDSI Level 4 (Pureed Solids) via tsp only IDDSI Level 3 (Moderately Thick Liquids) via tsp or small cup sip as tolerated Medications 1 at a time, whole in pureed solids as appropriate *If unable to tolerate whole in pureed solid, may consider crushed in puree per MD/Pharmacist direction and depending on medication *Pt is appropriate for thin liquids only with water, and only after thorough oral care at this time. *May offer straw to pt for intake of water, encourage pt to take a small sip only *Encourage pt to clear his throat after each swallow. (May require modeled example of throat clear from staff) Plan: CARDIAC MONITOR TECHNICIAN to follow while on unit. Lucy Jin MA [facility]-CARDIAC MONITOR TECHNICIAN [phone]
[2020-04-01] MEDS: Pantoprazole 40 MG VIAL IVP (21:10)
[2020-04-01] MEDS: Magnesium Oxide 400 MG TAB PO (21:16)
[2020-04-02] VITALS (42 sets, daily range): BP systolic 87–176; BP diastolic 22–92; PULSE 63–87; RESP 16–28; TEMP 34–37.1; O2SAT 80–97
[2020-04-02] MEDS: Heparin 5,000 UNITS/ML VIAL 5000 UNITS SC ×3 (02:41→18:37)
[2020-04-02] MEDS: Normal Saline Flush 10 ML SYR 20 ML IVP ×2 (06:08→19:58)
[2020-04-02 06:41] LABS: Abs Immature Grans 0.05 10^3/uL (0.0-0.06); Absolute Basophil Count 0.05 10^3/uL (0.0-0.2); Absolute Eosinophil Count 0.11 10^3/uL (0.0-0.7); Absolute Lymphocyte Count 1.54 10^3/uL (1.2-3.4); Absolute Monocyte Count 0.82 10^3/uL (0.1-0.8); Absolute Neutrophil Count 5.07 10^3/uL (1.2-6.7); Basophils % 0.7; Eosinophils % 1.4; HCT 31.7 % (40.0-50.0); HGB 10.4 g/dL (13.5-17.5); Immature Grans % 0.7; Lymphocytes % 20.2; MCH 33.2 pg (27.0-33.0); MCHC 32.8 % (32.0-36.0); MCV 101.3 fL (80-95); MPV 9.7 fL (8.0-11.0); Monocytes % 10.7; Neutrophils % 66.3; Nucleated RBC 0 %; Platelet Count 243 10^3/uL (130-400); RBC 3.13 10^6/uL (4.36-5.78); RDW-SD 55.5 fL; WBC 7.64 10^3/uL (4.4-10.8)
[2020-04-02 06:54] LABS: Anion Gap 6.3 mmol/L (3-11); BUN 15 mg/dL (7-18); CO2 27.7 mmol/L (21.0-32.0); Calcium 8.1 mg/dL (8.5-10.1); Chloride 105 mmol/L (98-107); Glucose 84 mg/dL (74-106); Potassium 3.9 mmol/L (3.5-5.1); Sodium 139 mmol/L (136-145)
[2020-04-02] MEDS: Magnesium Oxide 400 MG TAB PO ×2 (08:51→19:50)
[2020-04-02] MEDS: Metoprolol CR 50 MG TABCR NG (08:52)
[2020-04-02] MEDS: Potassium Chloride Liquid 20 MEQ PKT PO ×2 (08:52→19:51)
[2020-04-02] MEDS: Multivitamin TAB 1 TAB PO (08:52)
[2020-04-02] MEDS: Allopurinol 100 MG TAB PO (08:52)
[2020-04-02] MEDS: Aspirin E.C. 81 MG TABEC PO (08:52)
[2020-04-02] MEDS: Furosemide 40 MG TAB PO (08:52)
[2020-04-02] MEDS: Pantoprazole 40 MG VIAL IVP (08:52)
--- NOTE | 2020-04-02 08:55 | CMPROGNOTE_ITS ---
Care Management Progress Note S/O: Joaquín continues to make medical gains and continues to improve in mobility with PT. He remains agreeable to referrals being sent to local facilities, [facility] and the [facility]; CM faxed this morning and will await facility review and determination. CM will continue to follow. A: 79 year old male admitted to [facility] 03/24/19 for ALESIA due to rhabdomyolysis and elevated troponin P: Joaquín will likely discharge to SNF when medically ready, referrals faxed to [facility] and the [facility]. CM will continue to follow and support patient and family and address discharge planning needs.
--- NOTE | 2020-04-02 08:55 | PDOC.CMPRO ---
Care Management Progress Note S/O: Joaquín continues to make medical gains and continues to improve in mobility with PT. He remains agreeable to referrals being sent to local facilities, [facility] and the [facility]; CM faxed this morning and will await facility review and determination. CM will continue to follow. A: 79 year old male admitted to [facility] 03/24/19 for ALESIA due to rhabdomyolysis and elevated troponin P: Joaquín will likely discharge to SNF when medically ready, referrals faxed to [facility] and the [facility]. CM will continue to follow and support patient and family and address discharge planning needs.
[2020-04-02] MEDS: Nystatin POWDER 60 GM JAR TP ×3 (09:00→19:58)
--- NOTE | 2020-04-02 09:30 | OT.INIE ---
Occupational Therapy Notes Inpatient Occupational Therapy Evaluation Date: 04/02/20 Referring Doctor: Dr. Casillas OT Orders: Non-Urgent Precautions: Fall, standard, full PATIENT PROFILE/ADMITTING DIAGNOSIS: Pt is a 79 year old male who is currently in the ICU and admitted for the following dx bladder neck contracture, acute kidney injury superimposed on chronic kidney disease, rhabdomyolysis, elevated troponin, acute dehydration, and EtOH dependence. Past Medical History: Medical History (Updated 03/24/20 @ 16:56 by Mónica Moreno MD) Bladder neck contracture CAD (coronary artery disease) Chronic kidney disease Hypercholesterolemia Hypertension Ischemic cardiomyopathy Prostate cancer Surgical History History of heart artery stent S/P prostatectomy Status post THR (total hip replacement) Social History/Home Situation: Pt states that he lives with his daughter and . He states he cannot remember her name. But per pts EMR it states Joaquín lives alone in a studio apartment in [place], [place] He has a son Aiden who lives in [place], [place]. and is supportive. In addition, Joaquín has many friends in the area. He is independent at baseline and continues to drive. Equipment owned/DME: Unable to assess SUBJECTIVE: Pt was sitting in the chair when OT arrived. He was agreeable to OT session and was more alert and awake at todays session. He was able to carry conversation. OBJECTIVE: General Observation: Pleasant, awake and alert, able to answer questions appropriately Mental Status: A&Ox3 Pain: c/o pain in (R) UE which appears to be swollen ROM: RUE AROM WFL L UE AROM WFL STRENGTH: RUE shoulder flexion 2+/5, bicep 3/5, tricep 3-/5, gear generator set up operator is weak and symmetrical LUE shoulder flexion 3+/5, bicep 3/5, tricep 3-/5, gear generator set up operator is weak and symmetrical FUNCTIONAL MOBILITY/ADLS: BATHING sitting in chair with max (A) Set up/clean up Bathing UE (I) face, min (A) abdomen, max (A) back, max (A) hair Bathing LE pt denies (B) LE DRESSING seated in chair Dressing UE Mod (A) don and doffing hospital gown Dressing LE Max (A) don and doffing (B) socks, pt did attempt to perform this. GROOMING Sitting in chair min (A) with brushing hair. TOILETING NT EATING per RN pt requires vision for todays session. He does require thickened foods at this time and is working with FIREMAN HELPER on eating plan of care. BALANCE: Static sitting Normal Dynamic Sitting Good SPECIAL TESTS: Daily Activity Limitations Standardized Measure [facility] AM -PAC ?6 clicks? Daily Activity Inpatient Short Form: Raw score: 12 Standardized score: 30.60 CMS score: 66.57% INFORMED CONSENT/EDUCATION: Pt instructed in purpose of OT Consult and plan of care. ASSESSMENT: Patient is a 79-year-old male referred to occupational therapy services with diagnosis of bladder neck contracture, acute kidney injury superimposed on chronic kidney disease, rhabdomyolysis, elevated troponin, acute dehydration, and EtOH dependence. Patient presents with clinical signs and symptoms consistent with dx, as demonstrated by the following impairment level findings/functional limitations: Impairments in ADL/IADL and leisure activities, decreased functional activity tolerance, decreased LE dressing and bathing, pain in (B) UE, decreased strength. AMPA score 12 Patient is assessed as a Moderate 14787 complexity based on the following: History: see above Examination: see above Presentation: evolving Decision Making: AMPAC score 12 GOALS Goals x1 week 1. Transfers (S) 2. Dressing (I) seated with donning and doffing socks, pants and hospital gown 3. Bathing (I) seated 4. Toileting (I) toileting hygiene 5. Eating (I) PLAN OF CARE/TREATMENT PLAN: 1x/day, 5 days/ week x 1week Initiate Occupational Therapy Services for bathing, dressing, grooming, toileting, eating, transfer training. DISCHARGE RECOMMENDATIONS Based on pts current level of function and significant improvements in his functional (I) since attempt at consult yesterday, OT feels that pt may need to go short term to SNF for rehabilitation vs. home with services. TREATMENT TIME/MINUTES/CODES 81005, 37459, 28 minutes (09:00) LIS [facility]
--- NOTE | 2020-04-02 12:01 | SP_ITS ---
Date of service: 04/02/20 Time of Service: 08:27 Subjective Pt received in AM, alert/awake and able to communicate wants/needs if prompted to repeat himself 'slower' and 'overexaggerate' his words. COMMUNICATIONS DEPARTMENT HEAD communicated with RN and COMMERCIAL FOOD INSTRUCTOR re: recommendations and risk management for po intake while on unit, provided written sheet for review. Patient able to demonstrate comprehension of verbal recommendations for safe p.o. intake this morning with COMMUNICATIONS DEPARTMENT HEAD and RN/COMMERCIAL FOOD INSTRUCTOR present. Objective Objective Referring Doctor: Gregorio Casillas MD COMMUNICATIONS DEPARTMENT HEAD Orders: evaluate swallow Precautions: Full code HPI / PATIENT PROFILE/ADMITTING DIAGNOSIS: Pt is a 79 year old male who is currently in the ICU and admitted for the following dx bladder neck contracture, acute kidney injury superimposed on chronic kidney disease, rhabdomyolysis, elevated troponin, acute dehydration, and EtOH dependence. Past Medical History: Medical History (Updated 03/24/20 @ 16:56 by Mónica Moreno MD) Bladder neck contracture CAD (coronary artery disease) Chronic kidney disease Hypercholesterolemia Hypertension Ischemic cardiomyopathy Prostate cancer Surgical History History of heart artery stent S/P prostatectomy Status post THR (total hip replacement) Social History/Home Situation: Per chart review, Joaquín lives alone in a studio apartment in [place], [place] He has a son Aiden who lives in [place], [place]. and is supportive. In addition, Joaquín has many friends in the area. He is independent at baseline and continues to drive. OBJECTIVE: Predisposing dysphagia risk factors: rhabdomyolosis, chronic heart failure Clinical signs of possible chronic dysphagia: overt s.s aspiration with po intake, including wet VQ, TC, cough Precipitating dysphagia risk factors / triggering event: decreased mental status, acute hyperactive alcohol withdrawal delirium Temp: 97.9 F Sp02: 93% RR: 18 / HFNC Cranial nerve exam / Oral Motor: CN V: facial sensation intact to light touch labial protrusion symmetrical labial coordination/ROM WFL Jaw excursion/lateralization intact mastication impaired lingual/labial sensation intact cannot rule out impairments in superior hyoid movement at bedside CN VII: lateral sulcus residue absent anterior spillage occasional, mild with cup sips, patient is sensate to spillage salivation intact CN IX/X: palatal elevation -DNT, unable to view Vocal Quality - WFL, occasionally wet after po intake; also reports difficulties with vocal projection taste -WFL onset of swallow -cannot rule out delay at bedside pharyngeal residue - likely present per pt report nasopharyngeal regurgitation -none CN XII: bolus preparation/manipulation/control -possible impairment, cannot rule out deficit at bedside AP transit - possible impairment, cannot rule out deficit at bedside lingual protrusion symmetrical, lingual strength judged to be weak lingual coordination/ROM appears WFL lingual residue absent (limited po trials, level 4 pureed texture) Dentition/Oral Structures/Hygiene: anterior mandibular incisors present, left incisor loose maxillary and mandibular premolars absent oral hygiene appears adequate with assist while on unity today-reports consistent and appropriate oral care regimen when at home Language: verbal expression complicated by dysarthria, auditory comprehension appears WFL Hearing: WFL Mental Status: AAOx2, recall of current events impaired Speech: dysarthric, 50-60% intelligible Laryngeal function exam: Secretions: WFL MPT: DNT S/Z ratio: DNT Pitch range: DNT Cough: (volitional) perceptually WFL PO intake IDDSI 0: WFL via controlled straw sip (water), occasional TC IDDSI 2: via tsp - WFL; cup sip overt s/sx aspiration (cough 1/4x, wet VQ 1/4x) IDDSI 3: via tsp - WFL; cup sip WFL IDDSI 4: WFL via tsp Pill/tablet: single tablet in pureed texture via tsp - WFL Pt able to follow verbal direction with model to clear throat and re-swallow, then repeat TC after subsequent swallows with verbal cues only [place] Swallow Protocol: DNT, pt demonstrating difficulties with bringing cup to mouth/consistently following verbal instructions, may reassess during subsequent visit IMPRESSIONS: Patient is at moderate risk for aspiration-related pulmonary complication, given adequate oral hygiene, diffuse weakness, & reduced immunocompetence; improvements in physical mobility and overall pulmonary function likely to further reduce this risk. Further COMMUNICATIONS DEPARTMENT HEAD services warranted while on unit to assist in dysphagia management at this time. Recommend continued COMMUNICATIONS DEPARTMENT HEAD services upon discharge to SNF. Provided education to patient, RN, COMMERCIAL FOOD INSTRUCTOR re: overt s/sx to monitor for re: potential aspiration of food/liquids, and risk management as outlined, including recommendations for improved oral care Instrumentation: N/A at this time, if patient continues to remain awake/alert, may be appropriate for VFSS/MBSS to further inform treatment plan of care Diet Texture Modification(s): IDDSI Level(s) with risk management as outlined: 4-Pureed Solids via tsp https://iddsi.org/IDDSI/media/images/ConsumerHandoutsAdult/4_Pureed_Adults_consu mer_handout_Jan2018.pdf 2-Mildly Thick Liquids via small cup sip (see risk management) https://iddsi.org/IDDSI/media/images/ConsumerHandoutsAdult/2_Mildly_Thick_Adults _consumer_handout_28Mar2018.pdf 0-Thin Water only outside of meals, via tsp or controlled straw sip (encourage pt to take a small sip only; if unable to follow this direction, transition to water via tsp or ice chips via tsp) Medication Intake: Whole with 4-Pureed Solids, 1 at a time, via tsp Alter medications only as advised by MD or Pharmacist RISK MANAGEMENT: Oral hygiene q4h/every 4 hours and before/after PO intake using friction with toothbrush on all oral structures including tongue as tolerated HOB upright as tolerated; upright for all PO intake. Encourage physical mobility as tolerated. Level of Assistance/Supervision: Full assist for feeding by trained staff/caregivers PO intake only when awake/alert Strategies/Adaptations/Assistive Equipment: Reduce auditory and/or visual distractions when eating, Provide verbal and/or visual cues to use recommended strategies, Small sips and bites when eating, Slow rate of intake Encourage pt to clear throat and then re-swallow after each bite/sip, Alternate intake of liquids and solids Posture/Positioning Needs: Maintain upright position at least 30 minutes after meals, Avoid meals/snacks 2- 3 hours prior to reclining/sleeping, Sleep with head of bed elevated to reduce likelihood of nocturnal reflux Specialist referrals: N/A Ancillary tests: N/A Therapy: N/A Goal: N/A Speech/Communication: Comprehension: _Reduce rate of speech / complexity of words and repeat as needed when talking to patient given lack of visual cues to speaker's mouth. _Rephrase sentences and/or concepts if comprehension is unclear. _Provide visual aids/resources whenever possible. _Offer simplified written text whenever possible for patient to review with caregivers/staff. _Utilize Yes/No questions to determine understanding after new concepts are presented. Expression: _Encourage use of LESS technique (Loud, Exaggerated, Slow, [id number]) when patient is not comprehensible _Allow patient additional time to express self and/or multiple attempts to produ ce intelligible speech _For speech difficulties during conversation: _Encourage patient to describe what things look/feel like, where they may be located, how they function, and/or use related words (synonyms) _Provide patient with visual aids, and assistance with reading text aloud _Encourage use of relevant gestures to enhance expression PLAN: COMMUNICATIONS DEPARTMENT HEAD to follow while on unit. Please re-consult PRN and/or contact COMMUNICATIONS DEPARTMENT HEAD with any questions. Lucy Jin MA CCC-COMMUNICATIONS DEPARTMENT HEAD [phone] COMMUNICATIONS DEPARTMENT HEAD CPT Code: 21374 Clinical Swallowing Evaluation
[2020-04-02] MEDS: Metoprolol 5 MG/5 ML VIAL 2.5 MG IVP ×2 (13:30→18:38)
[2020-04-02] MEDS: Normal Saline Flush 10 ML SYR IVP (13:33)
--- NOTE | 2020-04-02 13:42 | W.PM.PROGNOT ---
Date of Service Date of service: 04/02/20 Time of Service: 10:23 Assessment and Plan Assessment and plan (1) Hypertension: Status: Chronic Assessment and plan: Variable BP readings with SBP ranging today from 87 to 176. Cont metoprolol Succinate at 50mg daily. Monitor. (2) CAD (coronary artery disease): Status: Chronic Assessment and plan: No angina Cont BB and ASA (3) Ischemic cardiomyopathy: Status: Chronic Assessment and plan: Echocardiogram on 03/25/20: Normal left ventricular chamber size and wall thickness. Estimated ejection fraction is 50%. Unable to assess regional wall motion Resumed his home lasix at 40mg po daily. (4) Alcohol dependence: Status: Chronic Assessment and plan: S/P withdrawal and now improving overall. On a MVI (5) Weakness generalized: Status: Acute Assessment and plan: Cont PT/OT Ensure adequate nutrition; appetite is good (6) At risk for aspiration: Status: Acute Assessment and plan: D/T global weakness and alteration in level of consciousness which is improving, poor dental hygiene. Will follow speech therapy recommendations. Subjective Subjective Patient reports: no new complaints, feels better, tolerating liquids well, diarrhea (several watery loose stools yesterday;c.diff neg) and afebrile; denies nausea and vomiting Interval history since last seen: He is more conversant and his speech is more intelligable today. He states he is hungry. Conts to be globally weak; stands with assist but hasn't been able to take steps. Exam Const General: cooperative and no acute distress Nutritional Appearance: overweight Orientation: awake and oriented to person Resp Effort & Inspection: normal respiratory effort Auscultation: clear to auscultation bilaterally and diminished lung sounds Cardio Rate: regular rate Rhythm: regular rhythm Heart Sounds: S1 normal and S2 normal GI Palpation: soft and nontender Auscultation: normal bowel sounds Neuro General: patient awake, moves all extremities and unable to assess gait Motor: strength abnormal (Diminished strength in all exts. Slow to mount full muscle response.) Extrem General: no pedal edema and no calf tenderness Objective Last Vital Signs Temp 36.6 C 04/02/20 12:03 Pulse 77 04/02/20 13:30 Resp 18 04/02/20 12:03 BP 176/89 H 04/02/20 13:30 Pulse Ox 93 04/02/20 12:03 Laboratory Results - last 24 hr 04/01/20 04/02/20 04/02/20 14:43 06:25 06:25 WBC 7.64 RBC 3.13 L Hgb 10.4 L Hct 31.7 L MCV 101.3 H MCH 33.2 H MCHC 32.8 RDW 15.0 H Plt Count 243 MPV 9.7 Immature Gran % 0.7 Neutrophils % 66.3 Lymphocytes % 20.2 Monocytes % 10.7 Eosinophils % 1.4 Basophils % 0.7 Nucleated RBC % 0 Absolute Neutrophils 5.07 Absolute Lymphocytes 1.54 Absolute Monocytes 0.82 H Absolute Eosinophils 0.11 Absolute Basophils 0.05 Sodium 139 Potassium 3.9 D Chloride 105 Carbon Dioxide 27.7 Anion Gap 6.3 BUN 15 Creatinine 1.0 Estimated GFR/1.73 m2 >= 60.00 Glucose 84 Calcium 8.1 L Stl C.difficile Tox PCR Negative
--- NOTE | 2020-04-02 15:10 | RESPIRATORY ---
Pt is doing well and no longer requiring O2. Airvo is still in use for humidity and comfort, in room and on pt. 25L, 34*, 21%.
--- NOTE | 2020-04-02 15:41 | INPN_ITS ---
Date of service: 04/02/20 Time of Service: 15:41 PT Notes Visit Reasons: ALESIA DUE TO RHABDOMYOLYSIS, ELEVATED TROPONIN Physical Therapy Inpatient Progress Note Date: 04/02/2020 Precautions: Fall. Standard. Activity as tolerated. Subjective: Samantas level of alertness is significantly improved. Has increased level of participation which is helping with mobility performance. Denies pain, and headache but reports being wishy washy and dizzy during walking activity. Objective: General Observation: Seated on bedside chair. Significantly improved level of alertness. Telemetry monitoring discharged as of today. Swelling noted from R forearm to R hand. Mental Status: Alert and oriented x 4 Pain: None reported ROM: Right Upper Extremity: Shoulder Flexion allows up to 100 degrees before complaint of pain. Shoulder abduction limited to 90 degrees. Elbow flexion WFL. Wrist flexion WFL. Functional opening and closing of hand WFL. Left Upper Extremity: Shoulder Flexion allows up to 100 degrees before complaint of pain. Shoulder abduction limited to 90 degrees. Elbow flexion WFL. Wrist flexion WFL. Functional opening and closing of hand WFL. Right Lower Extremity: Hip flexion WFL. Hip abduction WFL. Knee flexion WFL. Ankle dorsiflexion WFL. Ankle plantarflexion WFL. Left Lower Extremity: Hip flexion WFL. Hip abduction WFL. Knee flexion WFL. Ankle dorsiflexion WFL. Ankle plantarflexion WFL. Strength: Right Upper Extremity: Shoulder flexors 3-/5. Shoulder abductors 3-/5. Elbow flexors 4/5. Elbow extensors 4-/5. Dobby Looms Pegger strong. Left Upper Extremity: Shoulder flexors 3-/5. Shoulder abductors 3-/5. Elbow flexors 4/5. Elbow extensors 4-/5. Dobby Looms Pegger strong. Right Lower Extremity: Hip flexors 4/5. Hip abductors 4/5. Knee flexors 4/5. Knee extensors 4-/5. Ankle dorsiflexors 4/5. Ankle plantarflexors 4/5. Left Lower Extremity: Hip flexors 4/5. Hip abductors 4/5. Knee flexors 4/5. Knee extensors 4-/5. Ankle dorsiflexors 4/5. Ankle plantarflexors 4/5. Sensation: Intact as to pain and pressure on bilateral lower extremities. Bed Mobility/Transfers: Supine to sit standby assist with HOB at 30 degrees Sit to stand minimal assist Stand to sit minimal assist Bed to chair minimal assist Gait: In the morning was able to tolerate 8 feet +8 feet using front wheeled walker with full weightbearing with cues provided for safety and walker management. Patient complained of being dizzy and not well with blood pressure decreasing down to 99/56 mmHg. Deferred long distance ambulation in the morning. In the afternoon, patient was able to tolerate 12 feet +30 feet +40 feet of level surface ambulation using a front wheeled walker with full weightbearing requiring only contact-guard assist with continued report of being wishy-washy and dizzy with oxygen saturation staying above 88% on RA and blood pressure staying above 100 mmHg systolically. Balance: Static Sitting: Good Dynamic Sitting: Fair Static Standing: Poor Dynamic Standing: Poor Special Tests: Mobility Limitations Standardized Measure [facility] AM-PAC 6 clicks Basic Mobility Inpatient Short Form: Raw Score: 18 CMS Score: 47 % deficit Informed Consent/Education: Patient instructed in purpose of continued PT plan of care. Assessment: Joaquín has demonstrated significant improvement in level of cognition and awareness which has contributed to improve activity participation and subsequent decrease in level of dependence in terms of transfer and ambulation task performance. He will continue to benefit from PT services in order to achieve highest mobility level in anticipation of discharge to home with community services. May benefit from a short term placement in a SNF. Patient continues to present with clinical signs and symptoms consistent with current/admitting diagnoses that have resulted to mobility limitations, gait instability, generalized weakness, and impairment of motor control as demonstrated by the following impairment level findings: 1. Decreased strength to BUE/LE major muscle groups 2. Impaired standing balance 3. Impaired activity tolerance 4. Limitation of joint range of motion in BUE/LE Impairments are continuing to contribute to the following functional limitations: 1. Increased dependence with transfers 2. Inability to safely ambulate without assistive device and physical assistance 3. Increase completion time for mobility ADL performance 4. Increased fall risk 5. Inability to negotiate steps alone safely Patient is assessed as a 62079 high complexity based on the following: History: 79-year-old male with impairment level findings, functional limitations, and past medical history as indicated above Examination: Demonstrable impairment in strength, balance, and mobility level with underlying impairments and functional limitations as documented above Presentation: Evolving Decision Makin high complexity Goals: Goals X1 week 1. Supine-Sit minimal assist MET. UPGRADE to modified independent. 2. Sit-Supine minimal assist MET. UPGRADE to modified independent. 3. Sit-Stand minimal assist MET. UPGRADE to modified independent. 4. Stand-Sit minimal assist MET. UPGRADE to modified independent. 5. Bed-Chair minimal assist MET. UPGRADE to modified independent. 6. Chair-Bed minimal assist MET. UPGRADE to modified independent. 7. Minimal assist gait on level surface with use of least restrictive device for at least 300 feet without report of pain nor dyspnea MET. UPGRADE to modified independent. 8. Minimal assists negotiation while holding onto bilateral rails for at least 10 steps without report of pain nor dyspnea MET. UPGRADE to modified independent. 9. Fair static and dynamic standing balance/tolerance MET. UPGRADE to modified independent. Plan of Care/Treatment Plan: 1-2x/day, 7 days/week x 1 week. Plan of care has been reviewed with the ENGAGEMENT LEAD providing the service under Physical Therapy direction. Initiate Physical Therapy intervention for strengthening, bed mobility, transfers, gait, stairs, balance training, use of assistive device. DISCHARGE RECOMMENDATIONS: Patient will benefit from halfway facility placement for continued skilled physical therapy services in order to progress mobility level, strength, and balance in preparation for a safe discharge to [facility]. TREATMENT CODE/TIME: Session 1 -- 54460 x 10 minutes, 16135 x 10 minutes beginning at 10:10 AM. Session 2 -- [id number] x 20 minutes, 17505 x 14 minutes beginning at 15:41 PM.
[2020-04-02] MEDS: Metoprolol CR 25 MG TABCR 12.5 MG PO (19:50)
[2020-04-03] VITALS (8 sets, daily range): BP systolic 119–171; BP diastolic 56–76; PULSE 62–84; RESP 18–19; TEMP 36.3–36.6; O2SAT 91–98
[2020-04-03] MEDS: Heparin 5,000 UNITS/ML VIAL 5000 UNITS SC ×2 (02:24→09:19)
[2020-04-03] MEDS: Normal Saline Flush 10 ML SYR 20 ML IVP ×2 (06:18→19:51)
[2020-04-03 07:14] LABS: HCT 30.4 % (40.0-50.0); HGB 9.8 g/dL (13.5-17.5); MCH 32.7 pg (27.0-33.0); MCHC 32.2 % (32.0-36.0); MCV 101.3 fL (80-95); MPV 10.1 fL (8.0-11.0); Platelet Count 268 10^3/uL (130-400); RDW 14.7 % (11.8-14.1); RDW-SD 53.9 fL; WBC 8.47 10^3/uL (4.4-10.8)
[2020-04-03 07:22] LABS: Anion Gap 5.4 mmol/L (3-11); BUN 16 mg/dL (7-18); CO2 28.6 mmol/L (21.0-32.0); CREATININE 0.9 mg/dL (0.70-1.30); Calcium 8.1 mg/dL (8.5-10.1); Chloride 104 mmol/L (98-107); Glucose 81 mg/dL (74-106); Magnesium 1.4 mg/dL (1.8-2.4); Potassium 4.3 mmol/L (3.5-5.1); Sodium 138 mmol/L (136-145)
[2020-04-03] MEDS: Potassium Chloride Liquid 20 MEQ PKT PO ×2 (08:15→19:51)
[2020-04-03] MEDS: Aspirin E.C. 81 MG TABEC PO (08:18)
[2020-04-03] MEDS: Multivitamin TAB 1 TAB PO (08:18)
[2020-04-03] MEDS: Pantoprazole 40 MG TABCR PO (08:18)
[2020-04-03] MEDS: Metoprolol CR 50 MG TABCR PO (08:18)
[2020-04-03] MEDS: Furosemide 40 MG TAB PO (08:18)
[2020-04-03] MEDS: Magnesium Oxide 400 MG TAB PO ×2 (08:19→19:50)
[2020-04-03] MEDS: Allopurinol 100 MG TAB PO (08:19)
[2020-04-03] MEDS: Normal Saline Flush 10 ML SYR IVP ×2 (08:20→09:59)
[2020-04-03] MEDS: Nystatin POWDER 60 GM JAR TP ×2 (09:19→20:06)
[2020-04-03] MEDS: MAGNESIUM SULFATE 2 GM/50 ML BAG IVPB (09:59)
--- NOTE | 2020-04-03 09:59 | OT.INTREAT ---
Date of service: 04/03/20 Time of Service: 07:25 Occupational Therapy Notes Occupational Therapy Inpatient Treatment Note Date: 04/03/20 PRECAUTIONS: Fall, standard, full SUBJECTIVE: Pt was lying in bed when OT arrived, he was agreeable to OT session and notes he feels better than he has in the past couple days. OBJECTIVE: PAIN:no c/o pain FUNCTIONAL MOBILITY Rolling L/R: (I) Supine-sit: (I) Sit-stand: Min (A) with blocking to (R) LE Stand-sit: CGA Bed-Chair: CGA, FWW BATHING: sitting in chair with max (A) set up/clean up Upper Body: (I) face, min (A) (B) UE and (I) abdomen Lower Body: Mod (A) (B) LE DRESSING: sitting in chair Upper Extremity: Min (A) don and doffing hospital gown Lower Extremity: Mod (A) don and doffing underwear, max (A) don and doffing (B) socks GROOMING: (I) brushing hair ASSESSMENT/PLAN: Pt is making improved gains in his functional (I), he still requires vc and (A) throughout but was able to tolerate his ADls in the chair this morning with max (A) set up/clean up. TREATMENT CODES/TIME: [id number], 25 minutes (07:25) Jody Maldonado OTR/[facility]
--- NOTE | 2020-04-03 12:41 | PT.INTREAT ---
Date of service: 04/03/20 Time of Service: 11:00 PT Notes Visit Reasons: ALESIA DUE TO RHABDOMYOLYSIS, ELEVATED TROPONIN Inpatient Physical Therapy Treatment Note [facility] Date: 04/03/2020 PRECAUTIONS:Fall SUBJECTIVE: Joaquín is pleasant and agreeable to participating in PT. He reports that he is feeling better today. OBJECTIVE: PAIN: No c/o pain BED MOBILITY/TRANSFERS Supine-sit: S with HOB at 30 degrees Sit-stand: Min A Stand-sit: CGA GAIT Assistive Device: FWW Weight bearing: Full Assist: CGA-SBA Distance: 120' in a.m.; 40' + 60' in p.m. Deviation: C/o minimal dizziness, c/o increased fatigue THEREX: Patient was instructed in a LE strengthening program, performed in a standing position with FWW support and CGA, as per flow sheet. Patient was also instructed in functional [id number] exercise, requiring Min A and UE to push off from chair. STAIRS: Up/down 3x4 and 2x6 using B rails and a step-to/step-over pattern with SBA ASSESSMENT: Patient tolerated a progression in gait distance with FWW support and CGA-SBA, with reports of increased fatigue and minimal dizziness. He was able to tolerate a progression in his ther ex program, although continues to demonstrate global weakness and deconditioning. PLAN: Continue to progress global strengthening program, as well as gait and transfer training for improved mobility, and continued progression toward baseline level of function. TREATMENT CODE/TIME: Session 1: 45 minutes; 31786 x2, 93146 (11:00) Session 2: 30 minutes; 06223, 08612 (14:55)
--- NOTE | 2020-04-03 15:59 | W.PM.PROGNOT ---
Date of Service Date of service: 04/03/20 Time of Service: 10:59 Assessment and Plan Assessment and plan (1) Weakness generalized: Status: Acute Assessment and plan: Working well with PT Walked with roller walk around the unit. Walked stairs. Progressing well. (2) Discharge planning issues: Status: Acute Assessment and plan: Planning SNF on d/c. (3) Acute kidney injury superimposed on chronic kidney disease: Status: Resolved Assessment and plan: Resolved. (4) Hypertension: Status: Chronic Assessment and plan: Good control noted yesterday. More elevated today; more active. Cont metoprolol succinate 50mg daily. Monitor (5) CAD (coronary artery disease): Status: Chronic Assessment and plan: No c/o angina Cont BB and ASA (6) Ischemic cardiomyopathy: Status: Chronic Assessment and plan: Echocardiogram on 03/25/20: Normal left ventricular chamber size and wall thickness. Estimated ejection fraction is 50%. Unable to assess regional wall motion Resumed his home lasix at 40mg po daily. (7) Alcohol dependence: Status: Chronic Assessment and plan: S/P detox. On MVI. Cognition improving. Subjective Subjective Patient reports: no new complaints, feels better, tolerating a regular diet (pureed with thickened liquids other than thin water), bowel movement and afebrile; denies blood in stool (Heme neg stool today) and shortness of breath Exam Const General: cooperative, no acute distress and well groomed Nutritional Appearance: overweight Orientation: oriented to person and oriented to place Eyes Sclera: sclerae normal Pupils: PERRL Resp Effort & Inspection: normal respiratory effort Auscultation: clear to auscultation bilaterally and diminished lung sounds Cardio Rate: regular rate Rhythm: regular rhythm Heart Sounds: S1 normal and S2 normal GI Palpation: soft and nontender Skin General skin exam: no rashes or lesions noted Neuro General: patient alert and no focal motor deficits Extrem General: no pedal edema and no calf tenderness Objective Last Vital Signs Temp 36.4 C L 04/03/20 15:38 Pulse 65 04/03/20 15:38 Resp 19 04/03/20 15:38 BP 155/76 H 04/03/20 15:38 Pulse Ox 95 04/03/20 15:38 Laboratory Results - last 24 hr 04/03/20 04/03/20 06:30 06:30 WBC 8.47 RBC 3.00 L Hgb 9.8 L Hct 30.4 L MCV 101.3 H MCH 32.7 MCHC 32.2 RDW 14.7 H Plt Count 268 MPV 10.1 Sodium 138 Potassium 4.3 Chloride 104 Carbon Dioxide 28.6 Anion Gap 5.4 BUN 16 Creatinine 0.9 Estimated GFR/1.73 m2 >= 60.00 Glucose 81 Calcium 8.1 L Magnesium 1.4 L
--- NOTE | 2020-04-03 16:52 | CMPROGNOTE_ITS ---
Care Management Progress Note S/O: Joaquín continues to make medical gains and continues to improve in mobility with PT. He remains agreeable to referrals being sent to local facilities, [facility] and [facility]; [facility] declined and [facility] reports they would like to take Joaquín but are unable to provide S/T so will continue to follow along. With progress, Joaquín would be able to discharge to [facility]. He may require SWB1 while awaiting disposition. CM spoke to Joaquín's son Aiden who was excited to hear how much his father has progressed. Joaquín was sitting up in the chair, he was alert and engaged well with this securities underwriter. CM will continue to follow. A: 79 year old male admitted to [facility] 03/24/19 for ALESIA due to rhabdomyolysis and elevated troponin P: Joaquín will likely discharge to SNF when medically ready, referrals faxed to [facility] and the [facility]. CM will continue to follow and support patient and family and address discharge planning needs.
--- NOTE | 2020-04-03 16:52 | PDOC.CMPRO ---
Care Management Progress Note S/O: Joaquín continues to make medical gains and continues to improve in mobility with PT. He remains agreeable to referrals being sent to local facilities, [facility] and the [facility]; [facility] declined and [facility] reports they would like to take Joaquín but are unable to provide S/T so will continue to follow along. With progress, Joaquín would be able to discharge to [facility]. He may require SWB1 while awaiting disposition. CM spoke to Joaquín's son Aiden who was excited to hear how much his father has progressed. Joaquín was sitting up in the chair, he was alert and engaged well with this mortgage or loan underwriter. CM will continue to follow. A: 79 year old male admitted to [facility] 03/24/19 for ALESIA due to rhabdomyolysis and elevated troponin P: Joaquín will likely discharge to SNF when medically ready, referrals faxed to [facility] and the [facility]. CM will continue to follow and support patient and family and address discharge planning needs.
[2020-04-04] VITALS (7 sets, daily range): BP systolic 112–183; BP diastolic 62–94; PULSE 62–87; RESP 17–19; TEMP 35.1–36.7; O2SAT 92–97
--- NOTE | 2020-04-04 | DI.RAD_ITS ---
EXAM: XR SHOULDER RT COMPLETE 2+V CLINICAL HISTORY: right shoulder pain. TECHNIQUE: 2D digital imaging was performed. COMPARISON: No exams were available for comparison FINDINGS: BONES: No acute fracture is present. No bony destructive lesion is seen. Calcifications adjacent to t he greater tuberosity are consistent with calcific tendinitis. There are few tiny calcifications adj acent to the anterior glenoid. These appear chronic and may represent loose bodies. JOINTS: No dislocation present. Degenerative changes of the acromioclavicular and glenohumeral joints are noted. SOFT TISSUE: Atherosclerosis. A PICC line is seen. The tip is seen in good position in the superior vena cava. IMPRESSION: 1. No acute fracture or dislocation. 2. Calcific tendinitis. 3. Chronic appearing calcifications adjacent to the anterior glenoid. These are nonspecific and may represent loose bodies or old trauma. DATA REPOSITORY: RADIATION DOSE DELIVERED:
--- NOTE | 2020-04-04 | DI.RAD_ITS ---
EXAM: XR CHEST 2V PA LATERAL CLINICAL HISTORY: new hypoxia TECHNIQUE: 2D digital imaging was performed. COMPARISON: CR XR CHEST 2V PA LATERAL from 03/24/2020 FINDINGS: MEDIASTINUM: Normal. HEART: Cardiomegaly. PULMONARY VASCULATURE: Increased prominence of the interstitium in the pulmonary vasculature which ma y reflect pulmonary venous congestion. LUNGS: Increased interstitial markings in the lungs. PLEURAL SPACE: Small bilateral pleural effusions. BONE:Within normal limits for the patient's age. OTHER FINDINGS:Interval placement of a right PICC line. The tip of the catheter is seen in good posi tion in the superior vena cava. IMPRESSION: Findings suspicious for congestive heart failure. Please correlate clinically. DATA REPOSITORY: RADIATION DOSE DELIVERED:
--- NOTE | 2020-04-04 | DI.RAD_ITS ---
EXAM: XR CERVICAL SPINE COMP 4-5V CLINICAL HISTORY: neck/R shoulder pain. TECHNIQUE: 2D digital imaging was performed. COMPARISON: CT CT BRAIN NECK CTA from 03/28/2020 FINDINGS: There is a mild left convex curvature of the cervical spine which is unchanged compared to the CT sca n from 03/28/2020. The odontoid is intact. The lateral masses are well aligned. There is stable gra de 1 anterolisthesis of C3 on C4. Multilevel degenerative changes are seen throughout the cervical s pine most marked at the C5-C6 level. No acute fracture or subluxation is seen. The prevertebral sof t tissues are unremarkable. The visualized lung apices are clear. The tip of the patient's right PI CC line is in good position in the superior vena cava. Atherosclerosis is present. IMPRESSION: 1. No acute fracture or subluxation. 2. Moderate degenerative changes in the cervical spine. DATA REPOSITORY: RADIATION DOSE DELIVERED:
[2020-04-04] MEDS: Heparin 5,000 UNITS/ML VIAL 5000 UNITS SC ×3 (02:17→17:57)
[2020-04-04 07:40] LABS: HCT 32.1 % (40.0-50.0); HGB 10.5 g/dL (13.5-17.5); MCHC 32.7 % (32.0-36.0); MCV 100.9 fL (80-95); MPV 10.4 fL (8.0-11.0); Platelet Count 344 10^3/uL (130-400); RBC 3.18 10^6/uL (4.36-5.78); RDW 14.8 % (11.8-14.1); RDW-SD 54.7 fL; WBC 10.14 10^3/uL (4.4-10.8)
[2020-04-04] MEDS: Potassium Chloride Liquid 20 MEQ PKT PO ×2 (08:26→20:12)
[2020-04-04] MEDS: Aspirin E.C. 81 MG TABEC PO (08:26)
[2020-04-04] MEDS: Furosemide 40 MG TAB PO (08:26)
[2020-04-04] MEDS: Metoprolol CR 50 MG TABCR PO (08:27)
[2020-04-04] MEDS: Multivitamin TAB 1 TAB PO (08:27)
[2020-04-04] MEDS: Pantoprazole 40 MG TABCR PO (08:27)
[2020-04-04] MEDS: Magnesium Oxide 400 MG TAB PO ×2 (08:27→20:13)
[2020-04-04] MEDS: Allopurinol 100 MG TAB PO (08:27)
[2020-04-04] MEDS: Nystatin POWDER 60 GM JAR TP ×2 (08:27→20:13)
[2020-04-04] MEDS: Normal Saline Flush 10 ML SYR 20 ML IVP ×2 (08:28→20:13)
--- NOTE | 2020-04-04 10:31 | PDOC.CMPRO ---
- If Service Date Differs Date of service: 04/04/20 Time of Service: 10:31 Care Management Progress Note S/O: Joaquín worked with physical therapy today and reportedly tolerated the session well. He continues to improve and is no longer on CIWA protocol. Imaging of his right shoulder done today found no acute fracture or dislocation. An x-ray of the chest revealed a probable small pleural effusion, and imaging of the cervical spine shows multilevel cervical spondylosis and stable grade 1 anterolisthesis. An incentive spirometry was also ordered today. A: 79 year old male admitted to [facility] 03/24/19 for ALESIA due to rhabdomyolysis and elevated troponin. P: No change in plan. Joaquín will likely discharge to SNF when medically ready. A referral was faxed to [facility] and is awaiting review. CM will continue to follow and support patient and family and address discharge planning needs.
--- NOTE | 2020-04-04 11:51 | PT.INTREAT ---
PT Notes Visit Reasons: ALESIA DUE TO RHABDOMYOLYSIS, ELEVATED TROPONIN Inpatient Physical Therapy Treatment Note [facility] Date: 04/04/20 PRECAUTIONS:ETOH and delirium Sit-stand: CGA/min assistx1 Stand-sit: CGA GAIT Assistive Device: FWW Weight bearing: Full Assist: CGA/SBA Distance: Marching in place to F with oxygen THEREX: Pt completed UE and LE ther ex as per flow sheet. ASSESSMENT: Pt tolerated today's session well. PLAN: Cont as per PT POC. TREATMENT CODE/TIME: TPx2 (86) 10:40-11:10
--- NOTE | 2020-04-04 13:07 | PGE_ITS ---
Date of Service Date of service: 04/04/20 Time of Service: 13:10 Assessment and Plan Assessment and plan (1) Hypoxia: Status: Acute Assessment and plan: Check CXR (2) Right shoulder pain: Status: Acute Assessment and plan: Obtain XR R shoulder/c-spine. (3) Acute hyperactive alcohol withdrawal delirium: Status: Resolved Assessment and plan: Resolved. No longer on CIWA. Resume thiamine (4) Acute kidney injury superimposed on chronic kidney disease: Status: Resolved Assessment and plan: Due to rhabdomyolysis on admission. (5) Rhabdomyolysis: Status: Resolved Assessment and plan: As above (6) Hypokalemia: Status: Resolved Assessment and plan: Recheck in am (7) Elevated troponin: Status: Acute Assessment and plan: in setting of ALESIA and rhabdo. Flat. ACS ruled out. (8) Acute dehydration: Status: Resolved (9) Leucocytosis: Status: Resolved Assessment and plan: Source unclear. Finished empiric antibiotics/resolved. (10) CAD (coronary artery disease): Status: Chronic Assessment and plan: No ACS on this admission. Continue asa, (11) Hypertension: Status: Chronic Assessment and plan: hold ARB, metolazone Continue toprol xl - consider up-titration. (12) Ischemic cardiomyopathy: Status: Chronic Assessment and plan: As above. EF with preserved EF on this admission. Tolerating IVF. Continue to monitor respiratory status while hydrating. (13) Alcohol dependence: Status: Chronic Assessment and plan: Continue MVI, thiamine. 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 D/c burgos/VT only with Dr Marshall in house (15) Penile bleeding: Status: Acute Assessment and plan: As above (16) DVT prophylaxis: Status: Acute Assessment and plan: Sc heparin (17) Discharge planning issues: Status: Acute Assessment and plan: Full code per computer records now. Will consult palliative care to clarify goals of care - which had changed on this admission. Subjective Subjective Interval history since last seen: Nursing noted that the patient has been requir ing 1 L of O2 to saturate >90% since last night. The patient reported a transient R shoulder pain, neck pain and headache, but these have resolved on their own today. He thinks he had had surgery on the R shoulder - he thinks it would have been here. He also thinks that he went to [facility], but that they sent him to us. He is suprrised to hear that this did not happen. He denies dizziness, chest pain, shortness of breath. Per nursing he has been mildly confused, but pleasant and cooperative. Exam Narrative Exam Narrative: General: Pleasant elderly male, A&Ox3, forgetful and mildly confused, cooperative HEENT: EOMI, MMM Heart: RRR, no m/r/g Lungs: CTAB Abdomen: soft, nontender, nondistended Extremities: RUE: TTP to biceps tendon attachment anteriorly, limited ROM on RUE abduction, TTP shoulder/posterior neck Objective Last Vital Signs Temp 36.7 C 04/04/20 11:16 Pulse 69 04/04/20 11:16 Resp 18 04/04/20 11:16 BP 151/76 H 04/04/20 11:16 Pulse Ox 96 04/04/20 11:16 Laboratory Results - last 24 hr 04/04/20 06:21 WBC 10.14 RBC 3.18 L Hgb 10.5 L Hct 32.1 L MCV 100.9 H MCH 33.0 MCHC 32.7 RDW 14.8 H Plt Count 344 MPV 10.4
--- NOTE | 2020-04-04 14:35 | DI.VRAD_ITS ---
PROCEDURE INFORMATION: Exam: XR Right Shoulder Exam date and time: 04/04/2020 1:14 PM Age: 79 years old Clinical indication: Other: Right soulder pain TECHNIQUE: Imaging protocol: XR Right shoulder. Views: 2 or more views. COMPARISON: No relevant prior studies available. FINDINGS: Tubes, catheters and devices: There is a right-sided PICC line. Bones/joints: There is a calcific tendinopathy of the right shoulder joint. There are few foci of calcifications noted adjacent to the inferior glenoid rim. There is no definite acute fracture or dislocation. Soft tissues: Normal. IMPRESSION: 1. No definite acute fracture or dislocation. 2. Calcific tendinopathy of the right supraspinatus tendon. 3. Few calcified or loose bodies in the anterior inferior glenohumeral joint which is nonspecific and could be due to loose body or synovial chondromatosis or Bankart lesion. Dictated and Authenticated by: Deangelo Berry MD. Ordering:JANAE Sales MD
--- NOTE | 2020-04-04 14:38 | DI.VRAD_ITS ---
PROCEDURE INFORMATION: Exam: XR Chest, 2 Views Exam date and time: 04/04/2020 1:14 PM Age: 79 years old Clinical indication: Other: New hypoxia TECHNIQUE: Imaging protocol: XR of the chest Views: 2 views. COMPARISON: CR XR PORTABLE CHEST AP 03/30/2020 6:19 PM FINDINGS: Tubes, catheters and devices: There is a right-sided PICC line, tip is projecting over distal superior vena cava. Lungs: Unremarkable. No consolidation. Pleural spaces: There is stable mild left pleural effusion with mild overlying airspace disease. There is mild blunting of right costophrenic angle. Heart/Mediastinum: There is stable enlarged cardiac silhouette with diffuse prominence of interstitium. Bones/joints: Unremarkable. Gastrointestinal tract: There is fluid in the stomach. IMPRESSION: 1. Right PICC line, tip is projecting over superior vena cava. 2. Small left pleural effusion with overlying compressive atelectasis. Probable small pleural effusion. Dictated and Authenticated by: Deangelo Berry MD. Ordering:JANAE Sales MD
--- NOTE | 2020-04-04 14:42 | DI.VRAD_ITS ---
PROCEDURE INFORMATION: Exam: XR Spine, 1 view; Cervical Exam date and time: 04/04/2020 1:14 PM Age: 79 years old Clinical indication: Symptoms: R shoulder and neck pain TECHNIQUE: Imaging protocol: XR of the spine, 1 view. Exam focused on the cervical spine. COMPARISON: CT BRAIN NECK CTA 03/28/2020 5:27 PM FINDINGS: Bones/joints: There is grade 1 anterolisthesis of C3 over C4. There is mild narrowing of intervertebral disc space at C4-C5. There is [id number] narrowing intervertebral disc space of C5-C6. There is multilevel cervical spondylosis, most pronounced at C5-C6 and to a lesser extent at C4-C5 . There are multilevel uncovertebral osteophytes and facet hypertrophy. Lungs: Visualized apical lungs are clear. Soft tissues: Normal. IMPRESSION: 1. No definite acute fracture or subluxation. 2. Multilevel cervical spondylosis, most pronounced at C5-C6 and to a lesser extent at C4-C5. 3. Stable grade 1 anterolisthesis of C3 over C5. Dictated and Authenticated by: Deangelo Berry MD. Ordering:JANAE Sales MD
[2020-04-04] MEDS: Thiamine 100 MG TAB PO (14:45)
[2020-04-05] VITALS (10 sets, daily range): BP systolic 137–175; BP diastolic 73–90; PULSE 64–85; RESP 12–19; TEMP 36.3–37; O2SAT 88–97
[2020-04-05] MEDS: Heparin 5,000 UNITS/ML VIAL 5000 UNITS SC ×2 (01:53→09:55)
[2020-04-05] MEDS: Normal Saline Flush 10 ML SYR 20 ML IVP ×2 (07:57→20:13)
[2020-04-05] MEDS: Pantoprazole 40 MG TABCR PO (07:58)
[2020-04-05] MEDS: Allopurinol 100 MG TAB PO (07:58)
[2020-04-05] MEDS: Nystatin POWDER 60 GM JAR TP (07:58)
[2020-04-05] MEDS: Multivitamin TAB 1 TAB PO (07:58)
[2020-04-05] MEDS: Thiamine 100 MG TAB PO (07:58)
[2020-04-05] MEDS: Aspirin E.C. 81 MG TABEC PO (07:58)
[2020-04-05] MEDS: Potassium Chloride Liquid 20 MEQ PKT PO (07:58)
[2020-04-05] MEDS: Magnesium Oxide 400 MG TAB PO ×2 (07:59→20:12)
[2020-04-05] MEDS: Metoprolol CR 50 MG TABCR PO (07:59)
[2020-04-05] MEDS: Furosemide 40 MG TAB PO (07:59)
[2020-04-05 09:47] LABS: Abs Immature Grans 0.04 10^3/uL (0.0-0.06); Absolute Basophil Count 0.07 10^3/uL (0.0-0.2); Absolute Eosinophil Count 0.19 10^3/uL (0.0-0.7); Absolute Lymphocyte Count 1.53 10^3/uL (1.2-3.4); Absolute Monocyte Count 1.02 10^3/uL (0.1-0.8); Basophils % 0.8; Eosinophils % 2.1; HCT 33.1 % (40.0-50.0); HGB 10.8 g/dL (13.5-17.5); Immature Grans % 0.4; Lymphocytes % 16.5; MCH 32.8 pg (27.0-33.0); MCHC 32.6 % (32.0-36.0); MCV 100.6 fL (80-95); MPV 9.9 fL (8.0-11.0); Neutrophils % 69.2; Nucleated RBC 0 %; Platelet Count 396 10^3/uL (130-400); RBC 3.29 10^6/uL (4.36-5.78); RDW 14.8 % (11.8-14.1); RDW-SD 55.2 fL; WBC 9.25 10^3/uL (4.4-10.8)
[2020-04-05 09:51] LABS: Anion Gap 5.8 mmol/L (3-11); BUN 15 mg/dL (7-18); CO2 28.2 mmol/L (21.0-32.0); CREATININE 1.2 mg/dL (0.70-1.30); Calcium 8.6 mg/dL (8.5-10.1); Chloride 99 mmol/L (98-107); Glucose 142 mg/dL (74-106); Magnesium 1.7 mg/dL (1.8-2.4); Potassium 5.8 mmol/L (3.5-5.1); Sodium 133 mmol/L (136-145)
[2020-04-05] MEDS: Furosemide 20 MG/2 ML VIAL IVP ×2 (09:54→16:22)
--- NOTE | 2020-04-05 10:36 | PT.INTREAT ---
PT Notes Visit Reasons: ALESIA DUE TO RHABDOMYOLYSIS, ELEVATED TROPONIN Inpatient Physical Therapy Treatment Note [facility] Date: 04/05/20 PRECAUTIONS:ETOH and delirium SUBJECTIVE: Pt reports that his ears feel funny today and that he is dizzy. OBJECTIVE: Sit-stand: CGA to min A Stand-sit: CGA GAIT Assistive Device: FWW Weight bearing: Full Assist: CGA/SBA Distance: Pt took approx 8 steps and then was feeling dizzy and wanted to get back to the chair so then we rested and stood again and completed marching in place to F. THEREX: Pt completed UE and LE ther ex as per flow sheet. ASSESSMENT: Pt tolerated today's session well but appeared to have more dizziness today. PLAN: Cont as per PT POC. TREATMENT CODE/TIME: 9:30-9:50 (20) TP
--- NOTE | 2020-04-05 10:49 | PDOC.CMPRO ---
- If Service Date Differs Date of service: 04/05/20 Time of Service: 10:49 Care Management Progress Note S/O: Per MD note, Joaquín continues to report right shoulder/neck pain. He worked with physical therapy today and tolerated the session well. A basic metabolic panel, Magnesium level, and CBC with differential are ordered for the morning. Lab work done today reveals low RBC at 3.29, low Hgb at 10.8, low sodium at 132, and elevated potassium at 5.9. CM will continue to follow. A: 79 year old male admitted to [facility] 03/24/19 for ALESIA due to rhabdomyolysis and elevated troponin. P: No change in plan. Joaquín will likely discharge to SNF when medically ready. A referral was faxed to [facility] and is awaiting review. CM will continue to follow and support patient and family and address discharge planning needs.
--- NOTE | 2020-04-05 11:09 | W.PM.PROGNOT ---
Date of Service Date of service: 04/05/20 Time of Service: 11:09 Assessment and Plan Assessment and plan (1) Hyperkalemia: Status: Acute Assessment and plan: D/c repletion. S/p extra lasix this morning - recheck level at 2 pm. If still hyperkalemic, administer lokelma. Diet changed to renal. (2) Hypoxia: Status: Resolved Assessment and plan: CXR w/o PNA, but does have pleural effusions. Increase lasix. Also evidence of atelectasis - encourage IS. (3) Right shoulder pain: Status: Acute Assessment and plan: Clinically this is presenting as a muscle spasm. WIll trial lidocaine patch and warm compresses. (4) Acute hyperactive alcohol withdrawal delirium: Status: Resolved Assessment and plan: Resolved. No longer on CIWA. Continue thiamine. (5) Acute kidney injury superimposed on chronic kidney disease: Status: Resolved Assessment and plan: Due to rhabdomyolysis on admission. (6) Rhabdomyolysis: Status: Resolved Assessment and plan: As above (7) Hypokalemia: Status: Resolved Assessment and plan: K is high on am labs - recheck this afternoon after receiving extra lasix. D/c repletion. (8) Elevated troponin: Status: Acute Assessment and plan: in setting of ALESIA and rhabdo. Flat. ACS ruled out. (9) Acute dehydration: Status: Resolved Assessment and plan: IVF d/c'ed. No longer NPO (10) Leucocytosis: Status: Resolved Assessment and plan: Source unclear. Finished empiric antibiotics/resolved. (11) CAD (coronary artery disease): Status: Chronic Assessment and plan: No ACS on this admission. Continue asa, increase metoprolol. (12) Hypertension: Status: Chronic Assessment and plan: hold ARB, metolazone Increase metoprolol. (13) Ischemic cardiomyopathy: Status: Chronic Assessment and plan: As above. EF with preserved EF on this admission. Increase metoprolol. (14) Alcohol dependence: Status: Chronic Assessment and plan: Continue MVI, thiamine. 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 D/c burgos/VT only with Dr Marshall in house (16) Penile bleeding: Status: Acute Assessment and plan: As above (17) DVT prophylaxis: Status: Acute Assessment and plan: Sc heparin (18) Discharge planning issues: Status: Acute Assessment and plan: Full code per computer records now. Will consult palliative care to clarify goals of care - which had changed on this admission. Subjective Subjective Interval history since last seen: Mr Yuan states his biggest complaint is his right shoulder pain which is confluent with his R neck pain. He denies dizziness, chest pain, shortness of breath, nausea, pain elsewhere. A&Ox3 today. On room air today. Exam Narrative Exam Narrative: General: Pleasant elderly male, A&Ox3, forgetful and mildly confused, less confused than yesterday, cooperative HEENT: EOMI, MMM Heart: RRR, no m/r/g Lungs: CTAB Abdomen: soft, nontender, nondistended Extremities: RUE: R shoulder/neck TTP; no edema Objective Last Vital Signs Temp 36.8 C 04/05/20 07:34 Pulse 85 04/05/20 07:34 Resp 18 04/05/20 07:34 BP 175/87 H 04/05/20 07:34 Pulse Ox 93 04/05/20 07:34 Laboratory Results - last 24 hr 04/05/20 04/05/20 09:10 09:10 WBC 9.25 RBC 3.29 L Hgb 10.8 L Hct 33.1 L MCV 100.6 H MCH 32.8 MCHC 32.6 RDW 14.8 H Plt Count 396 MPV 9.9 Immature Gran % 0.4 Neutrophils % 69.2 Lymphocytes % 16.5 Monocytes % 11.0 Eosinophils % 2.1 Basophils % 0.8 Nucleated RBC % 0 Absolute Neutrophils 6.40 Absolute Lymphocytes 1.53 Absolute Monocytes 1.02 H Absolute Eosinophils 0.19 Absolute Basophils 0.07 Sodium 133 L Potassium 5.8 H D Chloride 99 Carbon Dioxide 28.2 Anion Gap 5.8 BUN 15 Creatinine 1.2 Estimated GFR/1.73 m2 58.40 Glucose 142 H Calcium 8.6 Magnesium 1.7 L Objective Narrative Objective Narrative: XR R shoulder: 1. No definite acute fracture or dislocation. 2. Calcific tendinopathy of the right supraspinatus tendon. 3. Few calcified or loose bodies in the anterior inferior glenohumeral joint which is nonspecific and could be due to loose body or synovial chondromatosis or Bankart lesion. XR chest: 1. Right PICC line, tip is projecting over superior vena cava. 2. Small left pleural effusion with overlying compressive atelectasis. Probable small pleural effusion. XR C-spine: 1. No definite acute fracture or subluxation. 2. Multilevel cervical spondylosis, most pronounced at C5-C6 and to a lesser extent at C4-C5. 3. Stable grade 1 anterolisthesis of C3 over C5.
[2020-04-05] MEDS: MAGNESIUM SULFATE 2 GM/50 ML BAG IVPB (11:15)
[2020-04-05] MEDS: Normal Saline Flush 10 ML SYR IVP ×3 (11:16→17:31)
[2020-04-05] MEDS: Metoprolol 25 MG TAB PO ×2 (12:13→17:31)
[2020-04-05] MEDS: Lidocaine 5% Patch 1 PATCH TP (12:13)
[2020-04-05 14:36] LABS: BUN 17 mg/dL (7-18); CREATININE 1.2 mg/dL (0.70-1.30); Calcium 8.6 mg/dL (8.5-10.1); Chloride 98 mmol/L (98-107); Glucose 110 mg/dL (74-106); Potassium 5.9 mmol/L (3.5-5.1); Sodium 132 mmol/L (136-145)
[2020-04-05] MEDS: Insulin REGULAR-Human 100 UNITS/ML UNIT IV (17:29)
[2020-04-05] MEDS: Dextrose 50%-Water 25 GM/50 ML SYR IVP (17:30)
[2020-04-05] MEDS: Sodium Zirconium Cyclosilicate 10 GM PKT PO ×2 (17:31→21:57)
[2020-04-05 20:17] LABS: Anion Gap 4.6 mmol/L (3-11); BUN 17 mg/dL (7-18); CO2 31.4 mmol/L (21.0-32.0); CREATININE 1.4 mg/dL (0.70-1.30); Calcium 8.6 mg/dL (8.5-10.1); Chloride 96 mmol/L (98-107); Estimated GFR 48.89 (mL/min/1.73m2); Glucose 68 mg/dL (74-106); Potassium 5.7 mmol/L (3.5-5.1); Sodium 132 mmol/L (136-145)
[2020-04-05] MEDS: Lidocaine Patch Removal 1 EACH TD (21:57)
[2020-04-06] VITALS (9 sets, daily range): BP systolic 104–158; BP diastolic 52–83; PULSE 55–75; RESP 17–18; TEMP 36.4–37; O2SAT 90–96
[2020-04-06] MEDS: Metoprolol 25 MG TAB PO ×4 (00:29→17:28)
[2020-04-06] MEDS: Sodium Zirconium Cyclosilicate 10 GM PKT PO ×3 (06:17→22:16)
[2020-04-06] MEDS: Normal Saline Flush 10 ML SYR 20 ML IVP ×2 (06:27→19:56)
[2020-04-06 07:10] LABS: Abs Immature Grans 0.03 10^3/uL (0.0-0.06); Absolute Basophil Count 0.07 10^3/uL (0.0-0.2); Absolute Lymphocyte Count 1.68 10^3/uL (1.2-3.4); Absolute Monocyte Count 0.91 10^3/uL (0.1-0.8); Absolute Neutrophil Count 4.28 10^3/uL (1.2-6.7); Eosinophils % 2.8; HCT 30.3 % (40.0-50.0); HGB 10.1 g/dL (13.5-17.5); Immature Grans % 0.4; Lymphocytes % 23.4; MCHC 33.3 % (32.0-36.0); MPV 9.8 fL (8.0-11.0); Monocytes % 12.7; Neutrophils % 59.7; Nucleated RBC 0 %; Platelet Count 378 10^3/uL (130-400); RBC 3.06 10^6/uL (4.36-5.78); RDW 14.8 % (11.8-14.1); WBC 7.17 10^3/uL (4.4-10.8)
[2020-04-06 07:21] LABS: Anion Gap 5.6 mmol/L (3-11); BUN 16 mg/dL (7-18); CO2 30.4 mmol/L (21.0-32.0); CREATININE 1.2 mg/dL (0.70-1.30); Calcium 8.6 mg/dL (8.5-10.1); Chloride 97 mmol/L (98-107); Glucose 95 mg/dL (74-106); Magnesium 2.1 mg/dL (1.8-2.4); Potassium 4.6 mmol/L (3.5-5.1); Sodium 133 mmol/L (136-145)
--- NOTE | 2020-04-06 08:25 | OT.INTREAT ---
Date of service: 04/06/20 Time of Service: 07:50 Occupational Therapy Notes Occupational Therapy Inpatient Treatment Note Date: 04/06/20 PRECAUTIONS: Fall, standard, full SUBJECTIVE: Pt was sitting in bed when OT arrived, he was agreeable to OT session and notes that he is feeling so much better. OBJECTIVE: PAIN:no c/o pain FUNCTIONAL MOBILITY Rolling L/R: (I) Supine-sit: (I) Sit-stand: (S) Stand-sit: CGA Bed-Chair: (S), FWW BATHING: sitting in chair with max (A) set up/clean up Upper Body: (I) face, min (A) (B) UE and (I) abdomen Lower Body: Min (A) (B) LE, (I) barb area DRESSING: sitting in chair with min vc throughout Upper Extremity: (I) don and doffing hospital gown Lower Extremity: Min (A) don and doffing underwear GROOMING: (I) brushing hair ASSESSMENT/PLAN: Pt is making improved gains in his functional (I), goal will be to transition pt to standing ADLs for his dressing and bathing as symptoms allow. TREATMENT CODES/TIME: [id number], 20 minutes (07:50) [facility]
[2020-04-06] MEDS: Multivitamin TAB 1 TAB PO (08:29)
[2020-04-06] MEDS: Pantoprazole 40 MG TABCR PO (08:29)
[2020-04-06] MEDS: Aspirin E.C. 81 MG TABEC PO (08:30)
[2020-04-06] MEDS: Allopurinol 100 MG TAB PO (08:30)
[2020-04-06] MEDS: Magnesium Oxide 400 MG TAB PO ×2 (08:31→19:55)
[2020-04-06] MEDS: Thiamine 100 MG TAB PO (08:31)
[2020-04-06] MEDS: Furosemide 20 MG/2 ML VIAL IVP ×2 (08:33→16:04)
[2020-04-06] MEDS: Nystatin POWDER 60 GM JAR TP ×3 (08:34→19:56)
[2020-04-06] MEDS: Lidocaine 5% Patch 1 PATCH TP (10:47)
--- NOTE | 2020-04-06 11:48 | W.NUTRFU ---
Date of service: 04/06/20 Time of Service: 11:49 Nutritional Follow up NOTE: Joaquín following renal diet with excellent intake (75-100 %). Currently meeting 100% nutrient and fluid needs by mouth. Per nursing, to discharge to SNF tomorrow. Will continue to follow. Time Spent in Nutritional Counseling and Treatment: 10 min
--- NOTE | 2020-04-06 12:11 | PT.INTREAT ---
Date of service: 04/06/20 Time of Service: 11:10 PT Notes Visit Reasons: ALESIA DUE TO RHABDOMYOLYSIS, ELEVATED TROPONIN Inpatient Physical Therapy Treatment [facility] Date: 04/06/2020 PRECAUTIONS: Fall SUBJECTIVE: Joaquín is pleasant and agreeable to participating in PT. He reports that he is feeling good and wants to work hard so he can go home soon. He reports that he was performing bed-level exercises, independently this morning. OBJECTIVE: PAIN: Patient c/o R shoulder discomfort BED MOBILITY/TRANSFERS Supine-sit: SBA with HOB at 20 degrees Sit-supine: S with HOB flat Sit-stand: SBA Stand-sit: SBA GAIT Assistive Device: FWW Weight bearing: Full Assist: SBA Distance: 200' in both a.m. and p.m. Deviation: Unremarkable gait THEREX: Patient was instructed in an UE and LE strengthening program, performed in a standing position, as per flow sheet. He requires verbal and visual cueing for proper exercise performance, as well as CGA for UE exercises and FWW for support with LE exercises due to balance deficit. TOILETING: Patient toileted with Min A for [id number]-gb-[id number] transfer from low toilet surface. MANUAL THERAPY: Performed manual therapy to R shoulder for pain relief, per Loren Aguila, attending Nurse Practitioner, request. With patient in seated position in a.m., and side-lying position in a.m., performed STM and TPR techniques to R shoulder musculature: upper traps, rhomboids, cervical and thoracic paraspinals, SCM, supraspinatus and infraspinatus. Aqua-K heating pad to R shoulder following PT sessions. ASSESSMENT: Patient tolerated session well, without complaint. He was able to tolerate a progression in gait distance with FWW support and SBA. Patient also reports symptom relief with manual therapy and heat to R shoulder. PLAN: Patient would benefit from continued gait and transfer training, as well as continued global strengthening for improved mobility. TREATMENT CODE/TIME: Session 1: 40 minutes; [id number] x2, [id number] (11:10) Session 2: 20 minutes; [id number] (14:15)
--- NOTE | 2020-04-06 13:55 | W.PM.PROGNOT ---
Date of Service Date of service: 04/06/20 Time of Service: 13:55 Assessment and Plan Assessment and plan (1) Right shoulder pain: Start date: 04/06/20 Start time: 13:59 Status: Acute Assessment and plan: Clinically this is presenting as a muscle spasm. WIll trial lidocaine patch and warm compresses. Have Pt work with him and try massage to help with pain (2) CAD (coronary artery disease): Start date: 04/06/20 Start time: 13:59 Status: Chronic Assessment and plan: No ACS on this admission. Continue asa, increase metoprolol. (3) Hypertension: Start date: 04/06/20 Start time: 13:59 Status: Chronic Assessment and plan: hold ARB, metolazone Increase metoprolol. (4) Ischemic cardiomyopathy: Start date: 04/06/20 Start time: 13:59 Status: Chronic Assessment and plan: As above. EF with preserved EF on this admission. Increase metoprolol. (5) Alcohol dependence: Start date: 04/06/20 Start time: 13:59 Status: Chronic Assessment and plan: Continue MVI, thiamine. (6) Bladder neck contracture: Start date: 04/06/20 Start time: 14:00 Status: Acute Assessment and plan: s/p burgos by Dr Kim. D/c aubrey today and [place], Dr. kmi in house (7) DVT prophylaxis: Start date: 04/06/20 Start time: 14:00 Status: Acute Assessment and plan: Sc heparin (8) Discharge planning issues: Start date: 04/06/20 Start time: 14:00 Status: Acute Assessment and plan: He is having repeat speech eval with possible discharge to health and rehab tomorrow above case discussed with DR. Moreno Subjective Subjective Patient reports: other Interval history since last seen: Continue to c/o shoulder pain. muscular in nature, PT to work with and massage. Warm packs and lidoderm patch. Speech to evaluate today. Aubrey dcd, with voiding trial. Possible discharge to h/r tomorrow. Exam Narrative Exam Narrative: General: Pleasant elderly male, A&Ox3,did not appear confused today, slurred speech which is baseline, cooperative HEENT: EOMI, MMM Heart: RRR, no m/r/g Lungs: CTAB Abdomen: soft, nontender, nondistended Extremities: RUE: R shoulder/neck TTP; no edema Objective Last Vital Signs Temp 36.4 C L 04/06/20 07:27 Pulse 74 04/06/20 12:17 Resp 18 04/06/20 07:27 BP 158/83 H 04/06/20 12:17 Pulse Ox 96 04/06/20 08:55 Laboratory Results - last 24 hr 04/05/20 04/05/20 04/06/20 14:20 20:04 06:27 WBC 7.17 RBC 3.06 L Hgb 10.1 L Hct 30.3 L MCV 99.0 H MCH 33.0 MCHC 33.3 RDW 14.8 H Plt Count 378 MPV 9.8 Immature Gran % 0.4 Neutrophils % 59.7 Lymphocytes % 23.4 Monocytes % 12.7 Eosinophils % 2.8 Basophils % 1.0 Nucleated RBC % 0 Absolute Neutrophils 4.28 Absolute Lymphocytes 1.68 Absolute Monocytes 0.91 H Absolute Eosinophils 0.20 Absolute Basophils 0.07 Sodium 132 L 132 L Potassium 5.9 H 5.7 H Chloride 98 96 L Carbon Dioxide 30.0 31.4 Anion Gap 4.0 4.6 BUN 17 17 Creatinine 1.2 1.4 H Estimated GFR/1.73 m2 58.40 48.89 Glucose 110 H 68 L Calcium 8.6 8.6 Magnesium 04/06/20 06:27 WBC RBC Hgb Hct MCV MCH MCHC RDW Plt Count MPV Immature Gran % Neutrophils % Lymphocytes % Monocytes % Eosinophils % Basophils % Nucleated RBC % Absolute Neutrophils Absolute Lymphocytes Absolute Monocytes Absolute Eosinophils Absolute Basophils Sodium 133 L Potassium 4.6 Chloride 97 L Carbon Dioxide 30.4 Anion Gap 5.6 BUN 16 Creatinine 1.2 Estimated GFR/1.73 m2 58.40 Glucose 95 Calcium 8.6 Magnesium 2.1
--- NOTE | 2020-04-06 14:13 | AMB.SPSTP ---
Date of Service April 06, 2020 Subjective Patient received reclined in bed, speaking with son on phone, significantly improved intelligibility (75-90%); AAOx3 and able to return verbal demonstration of all recommended strategies/precautions. Patient is agreeable to outpatient follow up with [facility] as needed. Pt able to tolerate having HOB raised to 80 degrees for po intake today. Objective: Patient able to both recall and demonstrate return of all recommendations and aspiration precautions from previous visit. [place] Swallow Protocol: Pass (-) overt s/s aspiration Assessment: Patient demonstrates significant improvements in cognitive status and presence/severity level of dysphagia relative to previous visit, deemed appropriate for continued oral diet (recommend level 6 soft and bite sized given partial missing dentition, which pt is in agreement with) and discharge to SNF setting with following recommendations. Pt demonstrates understanding re: availability of outpatient [facility] services if dysphagia symptoms become worse and/or return. Recommendations [employer] Diet Texture Level(s): 0 Thin liquids (small sips) 6 Soft and Bite Sized [email or web address]://iddsi.org/IDDSI/media/[email or web address] Posture/Positioning Needs: Reduce rate/volume of po intake, Maintain upright position during all po intake and at least 30 minutes after meals, Avoid meals/snacks 2-3 hours prior to reclining/sleeping, Sleep with head of bed slightly elevated to reduce likelihood of nocturnal reflux Encourage use of LESS technique (Loud, Exaggerated, Slow, Ujkvo-[id number]) if/when patient is not comprehensible Plan: Pt d/c from skilled [facility] services at this time. No further [facility] services warranted upon discharge; Please re-consult PRN. Lucy Jin MA [facility]3]-[facility] Speech-Language Pathologist [place]#[phone] [facility] Service Code(s): 15383 Coding
--- NOTE | 2020-04-06 17:09 | PDOC.CMPRO ---
Care Management Progress Note S/O: Joaquín continues to be closely monitored, awaiting S/T recommendations and bed offer from [facility]. Joaquín's son, Berto called to request tele-visit. CM coordinated with Berto for tomorrow, 04/07/20@1000. CM will continue to follow. A: 79 year old male admitted to [facility] 03/24/19 for ALESIA due to rhabdomyolysis and elevated troponin. P: No change in plan. Joaquín will likely discharge to SNF when medically ready. A referral was faxed to [facility]; awaiting bed offer. CM will continue to follow and support patient and family and address discharge planning needs.
[2020-04-06] MEDS: Lidocaine Patch Removal 1 EACH TD (22:16)
[2020-04-07] VITALS (7 sets, daily range): BP systolic 96–142; BP diastolic 42–63; PULSE 58–77; RESP 16–18; TEMP 36.1–36.9; O2SAT 92–95
[2020-04-07] MEDS: Metoprolol 25 MG TAB PO ×2 (00:11→19:04)
[2020-04-07] MEDS: Sodium Zirconium Cyclosilicate 10 GM PKT PO ×2 (05:14→15:22)
[2020-04-07] MEDS: Aspirin E.C. 81 MG TABEC PO (08:00)
[2020-04-07] MEDS: Multivitamin TAB 1 TAB PO (08:00)
[2020-04-07] MEDS: Pantoprazole 40 MG TABCR PO (08:00)
[2020-04-07] MEDS: Allopurinol 100 MG TAB PO (08:01)
[2020-04-07] MEDS: Thiamine 100 MG TAB PO (08:01)
[2020-04-07] MEDS: Magnesium Oxide 400 MG TAB PO ×2 (08:01→21:32)
[2020-04-07] MEDS: Nystatin POWDER 60 GM JAR TP ×3 (08:01→21:33)
[2020-04-07] MEDS: Normal Saline Flush 10 ML SYR 20 ML IVP ×2 (08:02→21:33)
--- NOTE | 2020-04-07 08:19 | OTTR_ITS ---
Date of service: 04/07/20 Time of Service: 07:50 Occupational Therapy Notes Occupational Therapy Inpatient Treatment Note Date: 04/07/20 PRECAUTIONS: Fall, standard, full SUBJECTIVE: Pt was sitting in bed when OT arrived, he was agreeable to OT session and notes that he would like to hold on standing ADLs for today. OBJECTIVE: PAIN:no c/o pain BATHING: sitting in chair with max (A) set up/clean up Upper Body: (I) face, min (A) (B) UE and (I) abdomen Lower Body: (I) (B) LE DRESSING: sitting in chair with min vc throughout Upper Extremity: (I) don and doffing hospital gown Lower Extremity: Min (A) don and doffing (B) socks GROOMING: (I) brushing hair ASSESSMENT/PLAN: Pt is making improved gains in sitting ADLs. He is able to anais erate sitting ADLs, he denied standing ADLs as he states that he was having double vision upon further questions with RN and OT pt reports that this is normal when he does not have his glasses. TREATMENT CODES/TIME: 13174, 15 minutes (07:50) Jody Maldonado OTR/[facility]
--- NOTE | 2020-04-07 08:50 | CMPROGNOTE_ITS ---
Care Management Progress Note S/O: Joaquín continues to be closely monitored, awaiting S/T recommendations and bed offer [facility] reports they are currently closed to admissions due to positive Covid case within the facility. CM coordinated tele-visit for Joaquín with Berto. CM will continue to follow. A: 79 year old male admitted to [facility] 03/24/19 for ALESIA due to rhabdomyolysis and elevated troponin. P: No change in plan. Joaquín will likely discharge to SNF when medically ready- anticipate he may need to enter SWB1 prior to discharging to SNF. CM will continue to follow and support patient and family and address discharge planning needs.
--- NOTE | 2020-04-07 09:54 | PTTR_ITS ---
Date of service: 04/07/20 Time of Service: 09:00 PT Notes Visit Reasons: ALESIA DUE TO RHABDOMYOLYSIS, ELEVATED TROPONIN Inpatient Physical Therapy Treatment Note [facility] Date: 04/07/2020 PRECAUTIONS: Fall SUBJECTIVE: Joaquín is pleasant and agreeable to participating in PT. He reports increased R shoulder discomfort, which increases while he is sitting in his chair. OBJECTIVE: Nursing aware of vital signs obtained and reports of dizziness during session PAIN: Patient c/o R shoulder pain throughout session BED MOBILITY/TRANSFERS Supine-sit: S with HOB flat Sit-supine: S with HOB flat Sit-stand: SBA Stand-sit: SBA Bed-chair: SBA Chair-bed: SBA GAIT Assistive Device: FWW Weight bearing: Full Assist: SBA Distance: 40' x2 in a.m.; 200' in p.m. Deviation: Unremarkable gait; Stand rest x3 in p.m. due to SOB THEREX: Patient was instructed in a resisted scapular stabilization program, performed in a standing position, as per flow sheet. He requires verbal and visual cueing as well as tactile cueing for postural correction for proper exercise performance. VITALS: NG=024/57, 57 bpm, 92% on RA at rest following ther ex completion in a.m. due to dizziness MANUAL THERAPY: Performed manual therapy to R shoulder for pain relief, per Loren Aguila, attending Nurse Practitioner, request. With patient in side- lying position, performed STM and TPR techniques to R shoulder musculature: upper traps, rhomboids, cervical and thoracic paraspinals, SCM, supraspinatus and infraspinatus. Aqua-K heating pad to R shoulder following a.m. PT session. ASSESSMENT: Patient tolerated session well, although with complaints of dizziness with ther ex in a.m., and complaints of SOB with gait training in p.m., and with R shoulder pain throughout session. Patient also reports symptom relief with manual therapy and heat to R shoulder. PLAN: Patient would benefit from continued gait and transfer training, as well as continued global strengthening for improved mobility. TREATMENT CODE/TIME: Session 1: 40 minutes; 76542 x2, [id number] (09:00) Session 2: 35 minutes; 70568, 70175 (12:45)
[2020-04-07 10:22] LABS: Lactate 1.9 mmol/L (0.6-1.4)
[2020-04-07 10:24] LABS: Abs Immature Grans 0.04 10^3/uL (0.0-0.06); Absolute Basophil Count 0.09 10^3/uL (0.0-0.2); Absolute Lymphocyte Count 1.28 10^3/uL (1.2-3.4); Absolute Monocyte Count 1.08 10^3/uL (0.1-0.8); Absolute Neutrophil Count 4.63 10^3/uL (1.2-6.7); Basophils % 1.2; Eosinophils % 2.7; HCT 28.6 % (40.0-50.0); HGB 9.6 g/dL (13.5-17.5); Immature Grans % 0.5; Lymphocytes % 17.5; MCH 33.3 pg (27.0-33.0); MCHC 33.6 % (32.0-36.0); MCV 99.3 fL (80-95); MPV 9.6 fL (8.0-11.0); Monocytes % 14.8; Neutrophils % 63.3; Nucleated RBC 0 %; Platelet Count 398 10^3/uL (130-400); RBC 2.88 10^6/uL (4.36-5.78); RDW 14.6 % (11.8-14.1); RDW-SD 53.4 fL; WBC 7.32 10^3/uL (4.4-10.8)
[2020-04-07 10:34] LABS: Anion Gap 6.3 mmol/L (3-11); BUN 17 mg/dL (7-18); CO2 28.7 mmol/L (21.0-32.0); CREATININE 1.4 mg/dL (0.70-1.30); Calcium 8.2 mg/dL (8.5-10.1); Chloride 95 mmol/L (98-107); Estimated GFR 48.89 (mL/min/1.73m2); Glucose 116 mg/dL (74-106); Potassium 3.8 mmol/L (3.5-5.1); Sodium 130 mmol/L (136-145)
[2020-04-07] MEDS: Lidocaine 5% Patch 1 PATCH TP (10:50)
[2020-04-07] MEDS: Heparin 5,000 UNITS/ML VIAL 5000 UNITS SC ×2 (10:50→19:04)
--- NOTE | 2020-04-07 14:15 | W.PM.PROGNOT ---
Date of Service Date of service: 04/07/20 Time of Service: 14:15 Assessment and Plan Assessment and plan (1) Right shoulder pain: Status: Acute Assessment and plan: Clinically this is presenting as a muscle spasm. WIll trial lidocaine patch and warm compresses. Have Pt work with him and try massage to help with pain (2) CAD (coronary artery disease): Status: Chronic Assessment and plan: No ACS on this admission. Continue asa, increase metoprolol. (3) Hypertension: Status: Chronic Assessment and plan: hold ARB, metolazone Increase metoprolol. (4) Ischemic cardiomyopathy: Status: Chronic Assessment and plan: As above. EF with preserved EF on this admission. Increase metoprolol. (5) Alcohol dependence: Status: Chronic Assessment and plan: Continue MVI, thiamine. (6) Bladder neck contracture: Status: Acute Assessment and plan: s/p burgos by Dr Kim. D/c burgos today and [place], Dr. kim in house (7) DVT prophylaxis: Status: Acute Assessment and plan: Sc heparin (8) Discharge planning issues: Status: Acute Assessment and plan: awaiting Swing level discharge case management following above case discussed with DR. Moreno Subjective Subjective Patient reports: no new complaints and afebrile Exam Const General: cooperative, no acute distress and well groomed Nutritional Appearance: overweight Orientation: awake, oriented to person, oriented to place and confused Eyes Alignment and Position: alignment normal Sclera: sclerae normal Resp Effort & Inspection: normal respiratory effort Auscultation: clear to auscultation bilaterally and diminished lung sounds Cardio Rate: regular rate Rhythm: regular rhythm GI Palpation: soft and nontender Auscultation: normal bowel sounds Extrem General: no pedal edema and no calf tenderness Objective Last Vital Signs Temp 36.6 C 04/07/20 07:53 Pulse 70 04/07/20 13:56 Resp 18 04/07/20 07:53 BP 107/58 L 04/07/20 13:56 Pulse Ox 95 04/07/20 07:53 Laboratory Results - last 24 hr 04/07/20 04/07/20 04/07/20 10:15 10:15 10:15 WBC 7.32 RBC 2.88 L Hgb 9.6 L Hct 28.6 L MCV 99.3 H MCH 33.3 H MCHC 33.6 RDW 14.6 H Plt Count 398 MPV 9.6 Immature Gran % 0.5 Neutrophils % 63.3 Lymphocytes % 17.5 Monocytes % 14.8 Eosinophils % 2.7 Basophils % 1.2 Nucleated RBC % 0 Absolute Neutrophils 4.63 Absolute Lymphocytes 1.28 Absolute Monocytes 1.08 H Absolute Eosinophils 0.20 Absolute Basophils 0.09 VBG Lactate 1.9 H Sodium 130 L Potassium 3.8 Chloride 95 L Carbon Dioxide 28.7 Anion Gap 6.3 BUN 17 Creatinine 1.4 H Estimated GFR/1.73 m2 48.89 Glucose 116 H Calcium 8.2 L Magnesium 2.0
[2020-04-07] MEDS: Acetaminophen 325 MG TAB 650 MG PO (21:31)
[2020-04-08 00:42] VITALS: BP 152/76; PULSE 65
[2020-04-08] MEDS: Metoprolol 25 MG TAB PO ×2 (00:42→06:39)
[2020-04-08] MEDS: Heparin 5,000 UNITS/ML VIAL 5000 UNITS SC ×2 (02:40→10:26)
[2020-04-08 06:40] VITALS: BP 125/64; PULSE 63
[2020-04-08 07:38] VITALS: BP 139/57; PULSE 64; RESP 18; TEMP 36.6; O2SAT 94
[2020-04-08 07:42] LABS: Abs Immature Grans 0.02 10^3/uL (0.0-0.06); Absolute Basophil Count 0.08 10^3/uL (0.0-0.2); Absolute Eosinophil Count 0.22 10^3/uL (0.0-0.7); Absolute Lymphocyte Count 1.57 10^3/uL (1.2-3.4); Absolute Monocyte Count 0.96 10^3/uL (0.1-0.8); Absolute Neutrophil Count 3.36 10^3/uL (1.2-6.7); Basophils % 1.3; Eosinophils % 3.5; HGB 9.5 g/dL (13.5-17.5); Immature Grans % 0.3; Lymphocytes % 25.3; MCH 33.3 pg (27.0-33.0); MCHC 33.9 % (32.0-36.0); MCV 98.2 fL (80-95); MPV 9.5 fL (8.0-11.0); Monocytes % 15.5; Neutrophils % 54.1; Nucleated RBC 0 %; Platelet Count 436 10^3/uL (130-400); RBC 2.85 10^6/uL (4.36-5.78); RDW 14.5 % (11.8-14.1); RDW-SD 52.9 fL; WBC 6.21 10^3/uL (4.4-10.8)
[2020-04-08 07:56] LABS: Anion Gap 6.2 mmol/L (3-11); BUN 18 mg/dL (7-18); CO2 31.8 mmol/L (21.0-32.0); CREATININE 1.5 mg/dL (0.70-1.30); Calcium 8.1 mg/dL (8.5-10.1); Chloride 96 mmol/L (98-107); Estimated GFR 45.14 (mL/min/1.73m2); Glucose 88 mg/dL (74-106); Magnesium 2.1 mg/dL (1.8-2.4); Potassium 3.9 mmol/L (3.5-5.1); Sodium 134 mmol/L (136-145)
[2020-04-08 08:35] VITALS: O2SAT 94
[2020-04-08] MEDS: Multivitamin TAB 1 TAB PO (08:38)
[2020-04-08] MEDS: Aspirin E.C. 81 MG TABEC PO (08:38)
[2020-04-08] MEDS: Magnesium Oxide 400 MG TAB PO (08:38)
[2020-04-08] MEDS: Allopurinol 100 MG TAB PO (08:39)
[2020-04-08] MEDS: Thiamine 100 MG TAB PO (08:39)
[2020-04-08] MEDS: Pantoprazole 40 MG TABCR PO (08:39)
--- NOTE | 2020-04-08 08:39 | OTTR_ITS ---
Date of service: 04/08/20 Time of Service: 07:35 Occupational Therapy Notes Occupational Therapy Inpatient Treatment Note Date: 04/08/20 PRECAUTIONS: Fall, standard, full SUBJECTIVE: Pt was sitting in bed when OT arrived. He was agreeable to OT session and performance of standing ADLS today. OBJECTIVE: PAIN:no c/o pain BATHING: Standing at sink with max (A) set up/clean up Upper Body: (I) face, min (A) (B) UE and (I) abdomen Lower Body: (I) (B) LE DRESSING: standing at sink with min vc throughout Upper Extremity: (I) don and doffing [facility] gown Lower Extremity: Min (A) don and doffing (B) socks GROOMING: standing at sink (I) brushing hair ASSESSMENT/PLAN: Pt was able to tolerate standing ADLs today, he was receptive to performance and only required vc throughout. He had no LOB or dizziness throughout session and was agreeable to performance tomorrow. TREATMENT CODES/TIME: 15105, 10 minutes (07:35) Jody Maldonado OTR/[facility]
[2020-04-08] MEDS: Normal Saline Flush 10 ML SYR 20 ML IVP (08:40)
[2020-04-08] MEDS: Nystatin POWDER 60 GM JAR TP (08:40)
--- NOTE | 2020-04-08 10:02 | W.PM.DS.N ---
Date of service: 04/08/20 Time of Service: 10:02 DS: Diagnosis Discharge Diagnosis (1) Right shoulder pain: Status: Acute (2) CAD (coronary artery disease): Status: Chronic (3) Hypertension: Status: Chronic (4) Ischemic cardiomyopathy: Status: Chronic (5) Alcohol dependence: Status: Chronic (6) Bladder neck contracture: Status: Acute (7) Acute hyperactive alcohol withdrawal delirium: Status: Resolved (8) Acute kidney injury superimposed on chronic kidney disease: Status: Resolved (9) Rhabdomyolysis: Status: Resolved (10) Elevated troponin: Status: Resolved (11) Acute dehydration: Status: Resolved Discharge Plan Disposition Patient Disposition: [facility] BED LEVEL 1 Condition: Stable Discharge Details Reason For Visit: ALESIA DUE TO RHABDOMYOLYSIS, ELEVATED TROPONIN Admit Date/Time: 03/24/20 16:31 Admit Provider: Mónica Moreno Attending Provider: Mónica Moreno Primary Care Provider: Taz Collins Hospital Course Hospital Course: This is a 79 year old male with history of alcohol abuse, chronic kidney disease, CAD ischemic cardiomyopathy, prostate cancer, htn who presented to the ED by EMS after being found down on a welfare check. Work up in the ED showed acute on chronic renal failure, rhabdomyolysis, and elevated troponin. He was alert and oriented x2 and hemodynamically stable. He was admitted to ICU for further management. His kidney function improved with hydration and medication adjustments for renal function (diuretics held, arb held, etc). Elevated troponins in the setting of ALESIA and rhabdo trended flat which was not consistent with ACS. Echocardiogram completed February showed only mild reduced ejection fraction at about 50%. His hospital course was complicated by alcohol withdrawal treated with phenobarbital, leukocytosis treated with empiric ceftriaxone completing 5 days with no source of infection identified thought to be reactive from fall/rhabdo. And altered mental status, for which he had garbled speech and altered mental status. CTA of brain and neck was unremarkable. He was experiencing acute hypernatremia, which was thought to be contributing. This was corrected with D5. His mental status improved with resolution of alcohol withdrawal but worsened again after receiving sedation for the head CT. ABG showed respiratory acidosis, he did not tolerated bipap and was ultimately intubated. He stabilized, sodium normalized and he was extubated. Dr kim had been consulted for urinary retention with bladder neck contracture for burgos catheter placement. He had bleeding post insertion which resolved. Eventually burgos was removed as he stabilized and he began voiding without difficulty. He began working with PT/OT and slowly progressing. Case management has been following and he will require more rehabilitation so is being discharged to swing level care. A bed is not available at [facility] so he will be admitted to swing bed here until a bed opens. Case discussed with DR Moreno Home Meds and New Rx's Prescriptions: No Action atorvastatin 80 MG tablet 80 mg PO DAILY RF: 0 nitroglycerin 0.4 MG tablet, sublingual 0.4 mg Sublingual PRN PRNRF: 0 acetaminophen [Tylenol Arthritis Pain] 650 MG tablet extended release 1,300 mg PO Q6H PRN PRNQty: 0 RF: 0 potassium chloride 10 MEQ capsule, extended release 20 meq PO DAILY RF: 0 allopurinol 100 MG tablet 300 mg PO DAILY RF: 0 aspirin [Aspir-81] 81 MG tablet,delayed release (DR/EC) 81 mg PO DAILY RF: 0 magnesium L-lactate [Mag-Lactate SR] 84 mg Tablet Extended Release 84 mg PO DAILY RF: 0 furosemide 40 MG tablet 40 mg PO DAILY RF: 0 metolazone 2.5 MG tablet 2.5 mg PO DIRECTED RF: 0 losartan 25 MG tablet 100 mg PO DAILY RF: 0 metoprolol succinate 25 MG tablet extended release 24 hr 50 mg PO DAILY RF: 0 Discharge Instructions Instructions: Acute Kidney Injury (DC), Urinary Retention in Men (ED), Abuse of Alcohol (DC) Activity:: Activity as Tolerated Equipment/Supplies:: No Equipment Needed Diet:: As Tolerated Discharge Orders Discharge Orders: Discharge Order (Routine); Ordered 04/08/20 Ordered By: Jayshree Amaya Discharge Data Discharge Date/Time-TO BE ENTERED AT DEPARTURE: 04/08/20 11:06 DS: Summary Time Spent with Patient providing and/or coordinating discharge services: Greater than 30 minutes Status at Discharge Functional status at discharge: uses cane/walker Overall status at discharge: patient is progressing back to baseline Mental Status: mental status grossly normal and other (cognitive impairment) Speech and Movement: speech and movement normal Mood: congruent mood Affect: normal affect Exam Const General: cooperative, no acute distress and well groomed Nutritional Appearance: overweight Orientation: awake, oriented to person, oriented to place and confused Eyes Alignment and Position: alignment normal Sclera: sclerae normal Resp Effort & Inspection: normal respiratory effort Auscultation: clear to auscultation bilaterally and diminished lung sounds Cardio Rate: regular rate Rhythm: regular rhythm GI Palpation: soft and nontender Auscultation: normal bowel sounds Extrem General: no pedal edema and no calf tenderness Psych Mental Status: mental status grossly normal Speech and Movement: speech and movement normal Mood: congruent mood Affect: normal affect DS: Data Vitals/I&O Vitals and I&O: Vital Signs Temperature 36.6 C 04/08/20 07:38 Temperature Source Tympanic 04/08/20 07:38 Pulse 64 04/08/20 07:38 Pulse Rhythm Irregular 04/08/20 08:35 Pulse 79 04/02/20 11:01 Respiratory Rate 18 04/08/20 07:38 Respiratory Effort 04/08/20 08:35 Respiratory Depth Normal 04/08/20 08:35 Respiratory Pattern Normal 04/08/20 08:35 Blood Pressure 139/57 L 04/08/20 07:38 Blood Pressure Mean 64 04/02/20 11:01 Blood Pressure Position Supine 04/02/20 04:00 Pulse Oximetry 94 04/08/20 08:35 Respiratory End-tidal CO2 22 03/30/20 12:31 Oxygen Delivery Method Room Air 04/08/20 08:35 Oxygen Flow Rate 0 04/08/20 08:35 Fraction of Inspired Oxygen (FIO2) 21 04/02/20 15:13 Pain Level 8 04/08/20 07:38 Comment 04/08/20 06:40 Intake & Output 04/07/20 04/07/20 04/08/20 11:59 23:59 11:59 Intake Total 230 / 770 540 / 770 740 / 740 Output Total 2200 / 2900 700 / 2900 1350 / 1350 Balance -1970 / -2130 -160 / -2130 -610 / -610 Weight 80.9 kg 78.9 kg Intake: IV 60 / 120 60 / 120 60 / 60 Oral 170 / 650 480 / 650 680 / 680 Output: Urine 2200 / 2900 700 / 2900 1350 / 1350 Post Void Residual 0 / 0 Other: Urine Color Yellow Yellow Yellow Urine Appearance Clear Clear Clear Urine Odor None Normal None Comment pt was getting lasix Stool Size Moderate Stool Characteristics Formed Voiding Methods Toilet Toilet Toilet Data Completed and Pending Labs on day of discharge: Labs from last 24 hours 04/08/20 04/08/20 04/07/20 07:17 07:17 10:15 WBC 6.21 7.32 RBC 2.85 L 2.88 L Hgb 9.5 L 9.6 L Hct 28.0 L 28.6 L MCV 98.2 H 99.3 H MCH 33.3 H 33.3 H MCHC 33.9 33.6 RDW 14.5 H 14.6 H Plt Count 436 H 398 MPV 9.5 9.6 Immature Gran % 0.3 0.5 Neutrophils % 54.1 63.3 Lymphocytes % 25.3 17.5 Monocytes % 15.5 14.8 Eosinophils % 3.5 2.7 Basophils % 1.3 1.2 Nucleated RBC % 0 0 Absolute Neutrophils 3.36 4.63 Absolute Lymphocytes 1.57 1.28 Absolute Monocytes 0.96 H 1.08 H Absolute Eosinophils 0.22 0.20 Absolute Basophils 0.08 0.09 VBG Lactate Sodium 134 L Potassium 3.9 Chloride 96 L Carbon Dioxide 31.8 Anion Gap 6.2 BUN 18 Creatinine 1.5 H Estimated GFR/1.73 m2 45.14 Glucose 88 Calcium 8.1 L Magnesium 2.1 04/07/20 04/07/20 10:15 10:15 WBC RBC Hgb Hct MCV MCH MCHC RDW Plt Count MPV Immature Gran % Neutrophils % Lymphocytes % Monocytes % Eosinophils % Basophils % Nucleated RBC % Absolute Neutrophils Absolute Lymphocytes Absolute Monocytes Absolute Eosinophils Absolute Basophils VBG Lactate 1.9 H Sodium 130 L Potassium 3.8 Chloride 95 L Carbon Dioxide 28.7 Anion Gap 6.3 BUN 17 Creatinine 1.4 H Estimated GFR/1.73 m2 48.89 Glucose 116 H Calcium 8.2 L Magnesium 2.0 PFSH Medical History (Updated 04/06/20 @ 14:00 by Loren Degroot NP) Bladder neck contracture CAD (coronary artery disease) Chronic kidney disease Hypercholesterolemia Hypertension Ischemic cardiomyopathy Prostate cancer Surgical History History of heart artery stent S/P prostatectomy Status post THR (total hip replacement) Social History (Updated 03/24/20 @ 17:40 by Mónica Moreno MD) Smoking/Tobacco Use Status: Former Tobacco Use Smoking risk assessment performed?: Yes Alcohol Intake: current Alcohol type: other Drug use: Never Substance use type: does not use Current gender identity: male Do you feel safe at home: Yes Do you feel safe in your relationship?: Yes
[2020-04-08] MEDS: Lidocaine 5% Patch 1 PATCH TP (10:26)
--- NOTE | 2020-04-08 10:52 | PTTR_ITS ---
Date of service: 04/08/20 Time of Service: 11:00 PT Notes Visit Reasons: ALESIA DUE TO RHABDOMYOLYSIS, ELEVATED TROPONIN Inpatient Physical Therapy Treatment Note [facility] Date: 04/08/2020 PRECAUTIONS: Fall SUBJECTIVE: Joaquín is pleasant and agreeable to participating in PT. He reports that his R shoulder discomfort has improved over night. He is hopeful that he will be able to go home at discharge and will not need a SNF stay. OBJECTIVE: PAIN: Minimal c/o R shoulder discomfort during session BED MOBILITY/TRANSFERS Supine-sit: I with HOB flat Sit-stand: I Stand-sit: I Bed-chair: S Chair-bed: S GAIT Assistive Device: FWW Weight bearing: Full Assist: S Distance: 300' Deviation: Unremarkable gait THEREX: Patient was instructed in a resisted scapular stabilization program, performed in both standing and seated positions, as per flow sheet. He requires verbal and visual cueing as well as tactile cueing for postural correction for proper exercise performance. MANUAL THERAPY: Performed manual therapy to R shoulder for pain relief, per Loren Aguila, attending Nurse Practitioner, request. With patient in side- lying position, performed STM and TPR techniques to R shoulder musculature: upper traps, rhomboids, cervical and thoracic paraspinals, SCM, supraspinatus and infraspinatus. Aqua-K heating pad to R shoulder following PT session. ASSESSMENT: Patient tolerated session well, with minimal complaints of R shoulder discomfort during session. Patient also reports symptom relief with manual therapy and heat to R shoulder. He continues to require tactile, visual, and verbal cueing for proper exercise performance. PLAN: Patient would benefit from continued gait training, as well as continued global strengthening for improved mobility. TREATMENT CODE/TIME: 30 minutes; [id number], [id number] (11:00)
--- NOTE | 2020-04-09 07:41 | OT.INDS ---
Date of service: 04/09/20 Time of Service: 07:42 Occupational Therapy Notes Occupational Therapy Inpatient Discharge Summary Date: 04/09/20 Dates of Service: 04/02/20-04/08/20 Referring Doctor: Dr. Casillas OT Orders: Non-Urgent Precautions: Fall, standard, full * This document serves as a summary of care, no skilled OT services were provided for this documentation* PATIENT PROFILE/ADMITTING DIAGNOSIS: Pt is a 79 year old male who is currently in the ICU and admitted for the following dx bladder neck contracture, acute kidney injury superimposed on chronic kidney disease, rhabdomyolysis, elevated troponin, acute dehydration, and EtOH dependence. Past Medical History: Medical History (Updated 03/24/20 @ 16:56 by Mónica Moreno MD) Bladder neck contracture CAD (coronary artery disease) Chronic kidney disease Hypercholesterolemia Hypertension Ischemic cardiomyopathy Prostate cancer Surgical History History of heart artery stent S/P prostatectomy Status post THR (total hip replacement) Social History/Home Situation: Pt states that he lives with his daughter and . He states he cannot remember her name. But per pts EMR it states Joaquín lives alone in a studio apartment in [place], [place] He has a son Aiden who lives in [place], [place]. and is supportive. In addition, Joaquín has many friends in the area. He is independent at baseline and continues to drive. Equipment owned/DME: Unable to assess SUBJECTIVE: NT OBJECTIVE: ROM: RUE AROM WFL L UE AROM WFL STRENGTH: RUE shoulder flexion 4+/5, bicep 4/5, tricep 4-/5, early childhood special educator is weak and symmetrical LUE shoulder flexion 4+/5, bicep 4/5, tricep 4-/5, early childhood special educator is weak and symmetrical FUNCTIONAL MOBILITY/ADLS: BATHING standing at sink with max (A) Set up/clean up Bathing UE (I) face, (I) abdomen, max (A) back, max (A) hair Bathing LE (I) (B) LE DRESSING seated in chair Dressing UE (I) don and doffing hospital gown Dressing LE Max (A) don and doffing (B) socks, pt did attempt to perform this. GROOMING Standing at sink (I) with brushing hair. TOILETING NT EATING sitting in chair (I) with eating routine and hand to mouth translation. BALANCE: Static sitting Normal Dynamic Sitting Good ASSESSMENT: Patient is a 79-year-old male referred to occupational therapy services with diagnosis of bladder neck contracture, acute kidney injury superimposed on chronic kidney disease, rhabdomyolysis, elevated troponin, acute dehydration, and EtOH dependence. Pt was seen in acute level of care, he has transitioned to [facility] and OT will re-assess under [facility] level of care. GOALS 1. Transfers (S)- met 2. Dressing (I) seated with donning and doffing socks, pants and hospital gown- progressing towards 3. Bathing (I) seated- met 4. Toileting (I) toileting hygiene- progressing towards 5. Eating (I)- met PLAN OF CARE/TREATMENT PLAN: Discharge pt from acute level of care as pt transitioned to [facility] rehabilitation on 04/08/20. DISCHARGE RECOMMENDATIONS Based on pts current level of function and significant improvements in his functional (I) since attempt at consult yesterday, OT feels that pt may need to go short term to SNF for rehabilitation vs. home with services. TREATMENT TIME/MINUTES/CODES N/A Jody Maldonado, OTR/L [facility]
--- NOTE | 2020-04-09 08:30 | INDS_ITS ---
Date of service: 04/09/20 Time of Service: 08:30 PT Notes Visit Reasons: ALESIA DUE TO RHABDOMYOLYSIS, ELEVATED TROPONIN Physical Therapy Discharge Summary Date: 04/09/2020 Dates of Service: 03/26/2020 through 04/08/2020 This is a clinical summary of care provided on the duration of dates listed above. No charge was made in the completion of this documentation. Referring Doctor: Mónica Moreno MD PT Orders: PT CONSULT: Limited ability Precautions: Fall. Standard. Activity as tolerated. Patient Profile/Admitting Diagnosis: Joaquín is a 79-year-old male with CAD, HTN, and ischemic cardiomyopathy who was brought in to the ED by EMS on 03/24/2019. Patient was found on floor by EMS personnel during a welfare check after 3 days of being inaccessible. Patient is diagnosed with bladder neck contracture, acute kidney injury superimposed on chronic kidney disease, rhabdomyolysis, elevated troponin, acute dehydration, and EtOH dependence. PMHX: Medical History (Updated 03/24/20 @ 16:56 by Mónica Moreno MD) Bladder neck contracture CAD (coronary artery disease) Chronic kidney disease Hypercholesterolemia Hypertension Ischemic cardiomyopathy Prostate cancer Surgical History History of heart artery stent S/P prostatectomy Status post THR (total hip replacement) Social History/Home Situation: Unable to extract information from patient at this time due to decreased level of alertness. Please see care management notes. Equipment Owned/DME: Unknown at this time Subjective: Complains of new onset posterior neck pain bilaterally and R shoulder pain that limited mobility performance today. Denies tingling and numbness in B UE. Objective: General Observation: Right side-lying in bed. Heating pad under head and right shoulder. Mental Status: Alert and is oriented as to person. Able to follow single-step commands. INSPECTION and PALPATION: No redness, no deformity seen. Cervical spine contour posteriorly and sagitally appearing normal. Tight and tender upper trapezius bilaterally on palpation. ROM: Cervical spine: Painful posterior neck with doing shoulder circles, shoulder elevation, and cervical extension. Right Upper Extremity: Shoulder Flexion allows only up to 80 degrees actively with report of pain in shoulder and in posterior neck. Shoulder abduction allows only up to 80 degrees actively. Elbow flexion WFL. Wrist flexion WFL. Functional opening and closing of hand WFL. Left Upper Extremity: Shoulder Flexion WFL. Shoulder abduction WFL. Elbow flexion WFL. Wrist flexion WFL. Functional opening and closing of hand WFL. Right Lower Extremity: Hip flexion WFL. Hip abduction WFL. Knee flexion WFL. Ankle dorsiflexion WFL. Ankle plantarflexion WFL. Left Lower Extremity: Hip flexion WFL. Hip abduction WFL. Knee flexion WFL. Ankle dorsiflexion WFL. Ankle plantarflexion WFL. Strength: Right Upper Extremity: Shoulder flexors 3-/5. Shoulder abductors 3-/5. Elbow flexors 3-/5. Elbow extensors 4/5. Pretzel Packer strong. Left Upper Extremity: Shoulder flexors 4-/5. Shoulder abductors 4-/5. Elbow flexors 4-/5. Elbow extensors 4/5. Pretzel Packer strong. Right Lower Extremity: Hip flexors 4/5. Hip abductors 4/5. Knee flexors 4/5. Knee extensors 4/5. Ankle dorsiflexors 4/5. Ankle plantarflexors 4/5. Left Lower Extremity: Hip flexors 4/5. Hip abductors 4/5. Knee flexors 4/5. Knee extensors 4/5. Ankle dorsiflexors 4/5. Ankle plantarflexors 4/5. Sensation: Intact as to pain and pressure on bilateral upper and lower extremities. Bed Mobility/Transfers: Supine to sit independent Sit to supine independent Sit to stand independent Stand to sit independent Bed to chair supervision Chair to bed supervision Gait: Without front wheeled walker patient was able to tolerate 50 feet of level surface ambulation requiring standby assist with report of increased discomfort in B hips and posterior neck. With the use of front wheeled walker patient was able to cover 150 feet of level surface ambulation with full weightbearing on bilateral lower extremities requiring only supervision however functional performance was limited by complaint of posterior neck pain. Balance: Static Sitting: Normal Dynamic Sitting: Normal Static Standing: Good Dynamic Standing: Fair Special Tests: Mobility Limitations Standardized Measure [facility] AM-PAC 6 clicks Basic Mobility Inpatient Short Form: Raw Score: 21 CMS Score: 29% deficit % deficit Informed Consent/Education: Patient instructed in purpose of PT consult and plan of care. Assessment: Joaquín converted to swing bed level of care as of 04/08/2020 and will be reevaluated for continued PT services progress PT goals. His functional deficits score basing on the [place] AM PAC test has decreased from 100% to 29% since hospital admission. He has demonstrated significant improvement in functional mobility performance using a front wheeled walker. New onset shoulder pain on the right and posterior neck pain limit ability to perform transfer and ambulation task performance. Joaquín will continue to require skilled services in order to progress mobility level and address new pain complaint in shoulder and posterior neck. Patient continues to present with clinical signs and symptoms consistent with current/admitting diagnoses that have resulted to mobility limitations, gait instability, generalized weakness, and impairment of motor control as demonstrated by the following impairment level findings: 1. Decreased strength to BUE/LE major muscle groups 2. Impaired standing balance 3. Impaired activity tolerance 4. Limitation of joint range of motion in BUE/LE 5. New onset shoulder and neck pain Impairments are continuing to contribute to the following functional limitations: 3. Inability to safely ambulate without assistive device 4. Increase completion time for mobility ADL performance 5. Increased fall risk 6. Inability to negotiate steps alone safely Goals: Goals X1 week 1. Supine-Sit minimal assist MET 2. Sit-Supine minimal assist MET 3. Sit-Stand minimal assist MET 4. Stand-Sit minimal assist MET 5. Bed-Chair minimal assist MET 6. Chair-Bed minimal assist MET 7. Minimal assist gait on level surface with use of least restrictive device for at least 300 feet without report of pain nor dyspnea MET 8. minimal assiststair negotiation while holding onto bilateral rails for at least 10 steps without report of pain nor dyspnea MET 9. Fair static and dynamic standing balance/tolerance MET DISCHARGE RECOMMENDATIONS: Patient will benefit from [facility] facility placement for continued skilled physical therapy services in order to progress mobility level, strength, and balance in preparation for a safe discharge to home. TREATMENT CODE/TIME: [place] Thank you for the opportunity to participate in the care of this patient. Krystin Serna PT, DPT, CLT [facility] [place], [place]
== END 2020-04-08 11:06 | disposition swing bed (61) | DRG 683 ==
LOC: ER 16:52 → ICU 22:52 → MS 04-03 17:03
PROVIDERS: Family Medicine; Admitting Provider Internal Medicine; Emergency Provider Emergency Medicine; PCP Internal Medicine; Visit Provider Internal Medicine
DX: N17.9 Acute kidney failure, unspecified; M62.82 Rhabdomyolysis; F10.231 Alcohol dependence with withdrawal delirium; E87.0 Hyperosmolality and hypernatremia; T83.83XA Hemorrhage due to genitourinary prosthetic devices, implants and grafts, initial encounter; E87.2 Acidosis; I25.10 Atherosclerotic heart disease of native coronary artery without angina pectoris; I12.9 Hypertensive chronic kidney disease with stage 1 through stage 4 chronic kidney disease, or unspecified chronic kidney disease; I25.5 Ischemic cardiomyopathy; N18.9 Chronic kidney disease, unspecified; N32.0 Bladder-neck obstruction; R74.8 Abnormal levels of other serum enzymes; W19.XXXA Unspecified fall, initial encounter; E78.00 Pure hypercholesterolemia, unspecified; Z85.46 Personal history of malignant neoplasm of prostate; Z66 Do not resuscitate; E87.6 Hypokalemia; D72.829 Elevated white blood cell count, unspecified; Z78.1 Physical restraint status; R06.89 Other abnormalities of breathing; I65.22 Occlusion and stenosis of left carotid artery; R09.02 Hypoxemia; M25.511 Pain in right shoulder; E87.5 Hyperkalemia
CPT/HCPCS: 36415; 36573; 36592; 51702; 70496; 70498; 71045; 76770; 80048; 80053; 80076; 80307; 82550; 82805; 82947; 84145; 85027; 87040; 87493; 92526; 92610; 93005; 93306; 96360; 96361; 97110; 97140; 97163; 97166; 97530; 97535; 99221; 99223; 99232; 99233; 99239; 99285; 99291; NC; U0003; 36600; 70450; 71046; 72050; 72170; 73030; 76705; 81003; 81015; 82140; 83605; 83735; 83880; 84443; 84484; 85014; 85018; 85025; 85610; 85730; 93010; 94002; 94003; 94660; 94667; J0696; J1630; J1644; J1940; J1941; J2060; J2560; J3480; J3490; J7060

== ENCOUNTER 2020-04-08 10:45 | Inpatient (IN) | payer MEDICARE, OTHER, SELFPAY ==
--- NOTE | 2020-04-08 10:40 | W.PM.HP.N ---
Date of service: 04/08/20 Time of Service: 10:40 Assessment and Plan Assessment and plan (1) Weakness generalized: Status: Acute Assessment and plan: admitted to swing level care for ongoing PT/OT fall/safety precautions (2) Chronic kidney disease: Status: Chronic Assessment and plan: creatinine is up at 1.5. will avoid nephrotoxic drugs, renal dosing and monitor regularly. (3) Ischemic cardiomyopathy: Status: Chronic Assessment and plan: stable, continue asa and beta beto echo Feb 2020, EF 50% (4) Bladder neck contracture: Status: Acute Assessment and plan: voiding without difficulty since burgos removed. monitor for sign of urinary retention (5) Discharge planning issues: Status: Acute Assessment and plan: case management following [facility] and will discharge there when it is available. case discussed with Dr Moreno History of Present Illness History of Present Illness Chief Complaint: generalized weakness Narrative: 79 year old male with complex medical history found on the ground at home, admitted for acute on chronic renal failure, rhabdomyolysis, and elevated troponin. hospital course complicated by urinary retention requiring indwelling cath placed by dr kim, altered mental status, acute hypernatremia requiring intubation and correction. he was stabilized and returned to his baseline, began working with PT/OT with recommendations for discharge to swing level care. case management following and patient will be discharged to [facility] when a bed becomes available. she will stay here on swing level until bed opens up. Review of Systems All systems reviewed & are unremarkable except as noted in HPI and below Musculoskeletal Musculoskeletal: Reports arthralgias (right shoulder, improving) [facility] Medical History (Updated 04/06/20 @ 14:00 by Loren Degroot NP) Bladder neck contracture CAD (coronary artery disease) Chronic kidney disease Hypercholesterolemia Hypertension Ischemic cardiomyopathy Prostate cancer Surgical History History of heart artery stent S/P prostatectomy Status post THR (total hip replacement) Social History (Updated 03/24/20 @ 17:40 by Mónica Moreno MD) Smoking/Tobacco Use Status: Former Tobacco Use Smoking risk assessment performed?: Yes Alcohol Intake: current Alcohol type: other Drug use: Never Substance use type: does not use Current gender identity: male Do you feel safe at home: Yes Do you feel safe in your relationship?: Yes Meds Home Medications and Allergies Home Medications Medication Instructions Recorded Confirmed Type atorvastatin 80 mg PO DAILY 12/31/12 03/24/20 History nitroglycerin 0.4 mg SUBLINGUAL PRN PRN 12/31/12 03/24/20 History acetaminophen [Tylenol Arthritis 1,300 mg PO Q6H PRN PRN #0 01/03/13 03/24/20 Rx Pain] potassium chloride 20 meq PO DAILY 03/15/15 03/24/20 History allopurinol 300 mg PO DAILY 10/28/15 03/24/20 History aspirin [Aspir-81] 81 mg PO DAILY 10/28/15 03/24/20 History furosemide 40 mg PO DAILY 09/20/16 03/24/20 History metolazone 2.5 mg PO DIRECTED 09/20/16 03/24/20 History losartan 100 mg PO DAILY 04/03/18 03/24/20 History metoprolol succinate 50 mg PO DAILY 04/03/18 03/24/20 History magnesium L-lactate [Mag-Lactate 84 mg PO DAILY 03/24/20 03/24/20 History SR] Allergies Allergy/AdvReac Type Severity Reaction Status Date / Time amlodipine AdvReac Intermediate Swelling/Ed Unverified 03/24/20 14:04 lottie enalapril maleate AdvReac Intermediate cough Unverified 03/24/20 14:04 [From Vasotec] enalaprilat dihydrate AdvReac Intermediate cough Unverified 03/24/20 14:04 [From Vasotec] Exam Const General: cooperative, healthy appearing, comfortable and no acute distress Nutritional Appearance: average body habitus and well nourished Orientation: alert, awake and oriented x3 HENNH Head: normal to inspection, normocephalic and atraumatic Mouth: oral mucosae normal Chest Chest: normal inspection of the chest Resp Effort & Inspection: normal respiratory effort Auscultation: clear to auscultation bilaterally Cardio Rate: regular rate Rhythm: regular rhythm GI Inspection: normal to inspection Palpation: soft Auscultation: normal bowel sounds Skin General skin exam: no rashes or lesions noted Neuro General: patient alert, patient awake and patient oriented x3 Cognition: normal cognition Speech: speech normal Extrem General: normal to inspection COVID-19 Screening Have you, or household traveled for leisure in last 14 days?: No
--- NOTE | 2020-04-08 13:17 | CMSA_ITS ---
- If Service Date Differs Date of service: 04/08/20 Time of Service: 10:45 SB Psychosocial/Act.Assessment - Hospital Admission Admission Date: 03/24/20 Admission From:: Home Diagnosis:: ALESIA due to Rhabdomyolysis - Swing Bed Admission Swing Bed Admit Date:: 04/08/20 Swing Bed Level of Care: Level 1/SNF - Social Supports PREVIOUS FUNCTIONAL STATUS/SOCIAL/FAMILY SUPPORTS:: Joaquín lives alone in a studio apartment in [place], [place] He has a son Aiden who lives in [place], [place]. and is supportive. In addition, Joaquín has many friends in the area. He is independent at baseline and continues to drive. - Prior to Admission Living Arrangements/Environment Prior to Admission:: Joaquín resides alone in a stud apartment in [place], [place] He has a son Aiden who lives in [place], [place]., and is supportive. His son Osiel is in the [place] area and keeps in great contact with his Dad as well. Joaquín reports living much of his early life in the [place], [place] area, but reports he really enjoys living in [place], [place] now and does not wish to leave. Joaquín has many friends and natural supports in the area. He is independent at baseline and continues to drive. 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 - Benefits Financial: 's Pension, [employer] Health Benefits - Advance Directives for Healthcare Advance Directives for Healthcare: Advance Directives Advance Directive Agent: Aiden Yuan - Medical History PAST MEDICAL HISTORY/PAST SURGICAL HISTORY:: Medical History (Updated 03/24/20 @ 16:56 by Mónica Moreno MD). Bladder neck contracture. CAD (coronary artery disease). Chronic kidney disease. Hypercholesterolemia. Hypertension. Ischemic cardiomyopathy. Prostate cancer. Surgical History . History of heart artery stent. S/P prostatectomy. Status post THR (total hip replacement) - Admission Data Reason for Swing Bed Admission:: Awaiting admissions to re-open at [facility] Discharge Plan:: Transfer to [facility] for continued rehab prior to returning home. Transport via [facility] Van. Assessment: Continued rehab awaiting delayed disposition due to COVID limitations of SNF admissions. Driver Wheelchair: Colleen Nicolas Date Assessment was completed:: 04/08/20
--- NOTE | 2020-04-08 13:17 | CM.SWINGPC ---
- If Service Date Differs Date of service: 04/08/20 Time of Service: 17:13 Swingbed Plan of Care Plan of care: SWING BED PROGRAM ACTIVITIES/DISCHARGE PLAN OF CARE ACTIVITIES PLAN Date: 04/08/20 Identified Need: Activities for extended hospitalization Intervention/Plan: Offer activity cart, tele-visits, television Initials: MIN DISCHARGE PLAN Date: 04/08/20 Identified Need: SNF Intervention/Plan: Placement at [facility] when the facility is able to re-open for admissions. Initials: MIN
[2020-04-08] MEDS: Nystatin POWDER 60 GM JAR TP ×2 (14:24→21:03)
[2020-04-08] MEDS: Metoprolol 25 MG TAB PO (18:21)
[2020-04-08] MEDS: Bacitracin 1 PACKET (18:22)
[2020-04-08] MEDS: Heparin 5,000 UNITS/ML VIAL 5000 UNITS SC (18:22)
[2020-04-08] MEDS: Bacitracin 1 PACKET TP (19:02)
[2020-04-08 20:10] VITALS: O2SAT 93
[2020-04-08] MEDS: Magnesium Oxide 400 MG TAB PO (21:02)
[2020-04-08 23:53] VITALS: BP 154/79; PULSE 66; RESP 18; TEMP 36.9; O2SAT 92
[2020-04-09] MEDS: Heparin 5,000 UNITS/ML VIAL 5000 UNITS SC ×3 (01:15→17:50)
[2020-04-09] MEDS: Metoprolol 25 MG TAB PO ×3 (01:18→17:49)
[2020-04-09 02:54] VITALS: O2SAT 92
[2020-04-09 05:15] VITALS: BP 160/80; PULSE 63; RESP 17; TEMP 36.6; O2SAT 95
[2020-04-09 07:20] LABS: HCT 29.6 % (40.0-50.0); HGB 9.8 g/dL (13.5-17.5); MCHC 33.1 % (32.0-36.0); MCV 99.7 fL (80-95); MPV 9.1 fL (8.0-11.0); Platelet Count 439 10^3/uL (130-400); RBC 2.97 10^6/uL (4.36-5.78); RDW 14.5 % (11.8-14.1); RDW-SD 53.4 fL; WBC 6.61 10^3/uL (4.4-10.8)
[2020-04-09 08:11] VITALS: BP 115/63; PULSE 63; RESP 20; TEMP 36.7; O2SAT 94
[2020-04-09] MEDS: Acetaminophen 325 MG TAB 650 MG PO (08:31)
[2020-04-09] MEDS: Thiamine 100 MG TAB PO (08:32)
[2020-04-09] MEDS: Aspirin E.C. 81 MG TABEC PO (08:32)
[2020-04-09] MEDS: Allopurinol 100 MG TAB PO (08:32)
[2020-04-09] MEDS: Multivitamin TAB 1 TAB PO (08:32)
[2020-04-09] MEDS: Magnesium Oxide 400 MG TAB PO ×2 (08:33→19:51)
[2020-04-09] MEDS: Pantoprazole 40 MG TABCR PO (08:33)
[2020-04-09] MEDS: Nystatin POWDER 60 GM JAR TP ×3 (08:34→19:51)
[2020-04-09] MEDS: Bacitracin 1 PACKET TP ×3 (08:34→19:51)
[2020-04-09 08:35] VITALS: O2SAT 95
--- NOTE | 2020-04-09 09:00 | IN_ITS ---
Date of service: 04/09/20 Time of Service: 09:00 PT Notes Visit Reasons: GENERALIZED WEAKNESS, URINARY RETENTION, Physical Therapy Swing Bed Level 1 Initial Evaluation Date: 04/09/2020 Referring Doctor: Jayshree Amaya NP PT Orders: PT CONSULT: Limited ability Precautions: Fall. Standard. Activity as tolerated. Patient Profile/Admitting Diagnosis: Joaquín is a 79-year-old male with CAD, HTN, and ischemic cardiomyopathy who was brought in to the ED by EMS on 03/24/2019. Patient was found on floor by EMS personnel during a welfare check after 3 days of being inaccessible. Patient is diagnosed with bladder neck contracture, acute kidney injury superimposed on chronic kidney disease, rhabdomyolysis, elevated troponin, acute dehydration, and EtOH dependence and received previous physical therapy services from 03/26/2020 through 04/08/2020. Skilled PT services continue to be provided with diagnosis of generalized weakness, chronic kidney disease, and ischemic cardiomyopathy with an EF of 50% as per last echo in February 2020. PMHX: Medical History (Updated 03/24/20 @ 16:56 by Mónica Moreno MD) Bladder neck contracture CAD (coronary artery disease) Chronic kidney disease Hypercholesterolemia Hypertension Ischemic cardiomyopathy Prostate cancer Surgical History History of heart artery stent S/P prostatectomy Status post THR (total hip replacement) Social History/Home Situation: Unable to extract information from patient at this time due to decreased level of alertness. Please see care management notes. Equipment Owned/DME: Unknown at this time Subjective: Complains of new onset posterior neck pain bilaterally and R shoulder pain that limited mobility performance today. Denies tingling and numbness in B UE. Objective: General Observation: Right side-lying in bed. Heating pad under head and right shoulder. Mental Status: Alert and is oriented as to person. Able to follow single-step commands. INSPECTION and PALPATION: No redness, no deformity seen. Cervical spine contour posteriorly and sagitally appearing normal. Tight and tender upper trapezius bilaterally on palpation. ROM: Cervical spine: Painful posterior neck with doing shoulder circles, shoulder elevation, and cervical extension. Right Upper Extremity: Shoulder Flexion allows only up to 80 degrees actively with report of pain in shoulder and in posterior neck. Shoulder abduction allows only up to 80 degrees actively. Elbow flexion WFL. Wrist flexion WFL. Functional opening and closing of hand WFL. Left Upper Extremity: Shoulder Flexion WFL. Shoulder abduction WFL. Elbow flexion WFL. Wrist flexion WFL. Functional opening and closing of hand WFL. Right Lower Extremity: Hip flexion WFL. Hip abduction WFL. Knee flexion WFL. Ankle dorsiflexion WFL. Ankle plantarflexion WFL. Left Lower Extremity: Hip flexion WFL. Hip abduction WFL. Knee flexion WFL. Ankle dorsiflexion WFL. Ankle plantarflexion WFL. Strength: Cervical spine: Grossly 3-/5 Right Upper Extremity: Shoulder flexors 3-/5. Shoulder abductors 3-/5. Elbow flexors 3-/5. Elbow extensors 4/5. Time Analysis Clerk strong. Left Upper Extremity: Shoulder flexors 4-/5. Shoulder abductors 4-/5. Elbow flexors 4-/5. Elbow extensors 4/5. Time Analysis Clerk strong. Right Lower Extremity: Hip flexors 4/5. Hip abductors 4/5. Knee flexors 4/5. Knee extensors 4/5. Ankle dorsiflexors 4/5. Ankle plantarflexors 4/5. Left Lower Extremity: Hip flexors 4/5. Hip abductors 4/5. Knee flexors 4/5. Knee extensors 4/5. Ankle dorsiflexors 4/5. Ankle plantarflexors 4/5. Sensation: Intact as to pain and pressure on bilateral upper and lower extremities. Bed Mobility/Transfers: Supine to sit independent Sit to supine independent Sit to stand independent Stand to sit independent Bed to chair supervision Chair to bed supervision Gait: Without front wheeled walker patient was able to tolerate 50 feet of level surface ambulation requiring standby assist with report of increased discomfort in B hips and posterior neck. With the use of front wheeled walker patient was able to cover 150 feet of level surface ambulation with full weightbearing on bilateral lower extremities requiring only supervision however functional performance was limited by complaint of posterior neck pain. Balance: Static Sitting: Normal Dynamic Sitting: Normal Static Standing: Good Dynamic Standing: Fair Special Tests: Mobility Limitations Standardized Measure [facility] AM-PAC 6 clicks Basic Mobility Inpatient Short Form: Raw Score: 21 CMS Score: 29% deficit % deficit Informed Consent/Education: Patient instructed in purpose of PT consult and plan of care. Assessment: Joaquín converted to swing bed level of care as of 04/08/2020 and is re-evaluated for continued PT services progress PT goals. His functional defici ts score basing on the [place] AM PAC test has decreased from 100% to 29% since hospital admission. He has demonstrated significant improvement in functional mobility performance using a front wheeled walker. New onset shoulder pain on the right and posterior neck pain limit ability to perform transfer and ambulation task performance. Joaquín will continue to require skilled services in order to progress mobility level and address new pain complaint in shoulder and posterior neck. Patient continues to present with clinical signs and symptoms consistent with current/admitting diagnoses that have resulted to mobility limitations, gait instability, generalized weakness, and impairment of motor control as demonstrated by the following impairment level findings: 1. Decreased strength to BUE/LE major muscle groups 2. Impaired standing balance 3. Impaired activity tolerance 4. Limitation of joint range of motion in BUE/LE 5. New onset shoulder and neck pain Impairments are continuing to contribute to the following functional limitations: 3. Inability to safely ambulate without assistive device 4. Increase completion time for mobility ADL performance 5. Increased fall risk 6. Inability to negotiate steps alone safely Goals: Goals X1 week 1. Sit-Stand independent 2. Stand-Sit independent 3. Bed-Chair independent 4. Chair-Bed independent 5. Supervision gait on level surface without an assistive device for at least 300 feet without report of pain in your neck or R shoulder nor dyspnea 6. Supervision stair negotiation while holding onto bilateral rails for at least 10 steps without report of pain in your neck or R shoulder nor dyspnea 7. Supervision with home exercise program 8. Good static and dynamic standing balance/tolerance DISCHARGE RECOMMENDATIONS: Patient will benefit from long term facility placement for continued skilled physical therapy services in order to progress mobility level, strength, and balance in preparation for a safe discharge to [facility]. TREATMENT CODE/TIME: 36760 x 20 minutes, 93110 x 10 minutes beginning at 9:00 AM. Thank you for the opportunity to participate in the care of this patient. Krystin Serna PT, DPT, CLT [facility] [place], [place]
--- NOTE | 2020-04-09 09:23 | OTIE_ITS ---
Occupational Therapy Notes Inpatient Occupational Therapy [facility] Evaluation Date: 04/09/20 Referring Doctor: Dr. Moreno OT Orders: Non-Urgent Precautions: Fall, standard, full PATIENT PROFILE/ADMITTING DIAGNOSIS: Pt is a 79 year old male who was admitted in the ICU and admitted for the following dx bladder neck contracture, acute kidney injury superimposed on chronic kidney disease, rhabdomyolysis, elevated troponin, acute dehydration, and EtOH dependence. He was transitioned to [facility] rehabilitation status on 04/08/20. Past Medical History: Medical History (Updated 03/24/20 @ 16:56 by Mónica Moreno MD) Bladder neck contracture CAD (coronary artery disease) Chronic kidney disease Hypercholesterolemia Hypertension Ischemic cardiomyopathy Prostate cancer Surgical History History of heart artery stent S/P prostatectomy Status post THR (total hip replacement) Social History/Home Situation: Pt states that he lives alone and has a daughter. He notes that he is (I) at his baseline level of function and doesn't require any (A). He states that he uses a sock aide for his socks, he has adaptive equipment such as a sock aid, hand shaker and long handled shoe horn. SUBJECTIVE: Pt was sitting on side of the bed when OT arrived. He was agreeable to OT session. 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 FUNCTIONAL MOBILITY/ADLS: BATHING standing at sink with FWW with max (A) Set up/clean up Bathing UE (I) face, (I) abdomen, max (A) back, max (A) hair Bathing LE (I) (B) LE DRESSING Dressing UE (I) don and doffing hospital gown standing at sink Dressing LE Max (A) don and doffing (B) socks, pt states that he utilizes sock aide GROOMING Standing at sink (I) brushing hair TOILETING NT EATING Sitting in chair (I) with eating routines BALANCE: Static sitting Normal Dynamic Sitting Normal Static standing: Normal Dynamic Standing: Good SPECIAL TESTS: Daily Activity Limitations Standardized Measure [facility] AM -PAC ?6 clicks? Daily Activity Inpatient Short Form: Raw score: 20 Standardized score: 42.03 CMS score: 38.32% INFORMED CONSENT/EDUCATION: Pt instructed in purpose of OT Consult and plan of care. ASSESSMENT: Patient is a 79-year-old male referred to occupational therapy services with diagnosis of bladder neck contracture, acute kidney injury superimposed on chronic kidney disease, rhabdomyolysis, elevated troponin, acute dehydration, and EtOH dependence pt transitioned to [facility] rehabilitation on 04/08/20. Patient presents with clinical signs and symptoms consistent with dx, as demonstrated by the following impairment level findings/functional limitations: Impairments in ADL/IADL and leisure activities, decreased functional activity tolerance, decreased LE dressing and bathing, pain in (B) UE, decreased strength. AMPAC score 20 Patient is assessed as a Low 17830 complexity based on the following: History: see above Examination: see above Presentation: evolving Decision Making: AMPAC score 20 GOALS Goals x1 week 1. Transfers (I) 2. Dressing (I) seated with donning and doffing pants and shirt 3. Bathing (I) standing at sink 4. Toileting (I) toileting hygiene PLAN OF CARE/TREATMENT PLAN: 1x/day, 5 days/ week x 1week Initiate Occupational Therapy Services for bathing, dressing, grooming, toileting, eating, transfer training. DISCHARGE RECOMMENDATIONS Based on pts current level of function and significant improvements in his functional (I) OT feels that pt would benefit from SNF vs. OT services for assessment of further DME needs. TREATMENT TIME/MINUTES/CODES 46177, 04047, 25 minutes (08:20) Jody Maldonado OTR/[facility]
[2020-04-09 09:54] LABS: Abs Immature Grans 0.02 10^3/uL (0.0-0.06); Absolute Basophil Count 0.09 10^3/uL (0.0-0.2); Absolute Eosinophil Count 0.21 10^3/uL (0.0-0.7); Absolute Lymphocyte Count 1.59 10^3/uL (1.2-3.4); Absolute Monocyte Count 0.91 10^3/uL (0.1-0.8); Absolute Neutrophil Count 3.59 10^3/uL (1.2-6.7); Basophils % 1.4; Eosinophils % 3.3; Immature Grans % 0.3; Lymphocytes % 24.8; Monocytes % 14.2
[2020-04-09] MEDS: Lidocaine 5% Patch 1 PATCH TP (10:48)
--- NOTE | 2020-04-09 13:40 | W.PALLCONSUL ---
Date of service: 04/09/20 Time of Service: 13:40 History of Present Illness Narrative: Joaquín Yuan is a 79 year old man who is currently on swing bed level of care, awaiting placement at [facility]. He was hospitalized after being found down on the floor at home for an unknown period of time. He was found to have rhabdomyolysis and acute kidney injury superimposed on CKD, as well as an elevated troponin. He was admitted to the ICU initially, he had an echocardiogram which showed an LVEF of 50%. He had urinary retention and required burgos catheter placement. A palliative consult was placed to discuss goals of care. He is working with PT, he is ambulating with a walker. He does not think he will need to be at the rehab long before he can go home. He feels he is getting stronger. He gets SOB with activity, he has an occasional productive cough, he endorses wheezing at times. He was a smoker, he quit 15 years ago, he smoked a tobacco pipe. He reports that he drinks whiskey a couple of times per week at times and other times he does not drink any alcohol for a few weeks. He is still driving his car to the store. Sometimes he gets dizzy when he gets out of the car, he denies dizziness while driving. He is eating and drinking and tolerating his diet, denies abdominal pain, nausea. He is moving his bowel. He is voiding without difficulty since the catheter was removed. 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 He was also in the [place] 4 years, and in the [employer] for 16 years. He has a lot of support. He lives in a 6 apartment house and the neighbors all look out for eachother. He has 6 kids and an adopted daughter. He has a son, Osiel, who lives locally and helps him out. His other son, Joaquín, lives in [place] and will help as needed. He also has a grandson, Nic, that can help out as needed as well. He was one of 9 kids, he has only one living sibling, his brother, Diego who is 82. We discussed CODE status. He is a DNR/DNI, a COLST form was completed to reflect his wishes. Assessment and Plan Assessment and plan (1) Weakness generalized: Status: Acute (2) Acute hyperactive alcohol withdrawal delirium: Status: Resolved (3) Rhabdomyolysis: Status: Resolved (4) Acute kidney injury superimposed on chronic kidney disease: Status: Resolved (5) Chronic kidney disease: Status: Chronic (6) Hypertension: Status: Chronic (7) CAD (coronary artery disease): Status: Chronic (8) Ischemic cardiomyopathy: Status: Chronic (9) Alcohol dependence: Status: Chronic (10) POLST (Physician Orders for Life-Sustaining Treatment): Status: Acute (11) DNR (do not resuscitate): Status: Acute (12) DNI (do not intubate): Status: Acute (13) Palliative care patient: Status: Acute Assessment and plan: Joaquín Yuan is a 79 year old man who is currently on swing bed level of care, awaiting placement at [facility]. He was hospitalized after being found down on the floor at home for an unknown period of time. He was found to have rhabdomyolysis and acute kidney injury superimposed on CKD, as well as an elevated troponin. He was admitted to the ICU initially, he had an echocardiogram which showed an LVEF of 50%. He had urinary retention and required burgos catheter placement. A palliative consult was placed to discuss goals of care. He does not expect that he will be at the rehab for long and plans on being home within a few weeks. We discussed CODE status. A COLST form was completed to reflect his wishes. He is a DNR/DNI, he would not want a feeding tube. If his condition changed and he was unable to speak for himself, he would want to stay home and be kept comfortable. He is interested in follow up home visits after he is discharged from [facility]. Review of Systems All systems reviewed & are unremarkable except as noted in HPI and below PFSH Medical History Bladder neck contracture CAD (coronary artery disease) Chronic kidney disease Hypercholesterolemia Hypertension Ischemic cardiomyopathy Prostate cancer Surgical History History of heart artery stent S/P prostatectomy Status post THR (total hip replacement) Social History Smoking/Tobacco Use Status: Former Tobacco Use Smoking risk assessment performed?: Yes Alcohol Intake: current Alcohol type: other Drug use: Never Substance use type: does not use Current gender identity: male Do you feel safe at home: Yes Do you feel safe in your relationship?: Yes Exam Narrative Exam Narrative: General: elderly man, laying in the hospital bed, awake, alert and oriented. Pleasant and talkative. HEENT: normocephalic, atraumatic, pupils equal and round, poor dentition, missing several teeth, mucous membranes moist. Neck: supple. Respiratory: respirations appear even and unlabored, lung sounds are clear throughout. Cardiovascular: heart sounds regular, nontachycardic. GI: +Bowel sounds, abdomen soft, nontender on palpation, nondistended. Extremities: no edema. Results Last Vital Signs Temp 36.7 C 04/09/20 08:11 Pulse 63 04/09/20 08:11 Resp 20 04/09/20 08:11 BP 115/63 04/09/20 08:11 Pulse Ox 95 04/09/20 08:35 Labs Result diagrams: 04/09/20 07:12 Labs: Laboratory Results - last 24 hr 04/09/20 04/09/20 07:12 13:35 WBC 6.61 RBC 2.97 L Hgb 9.8 L Hct 29.6 L MCV 99.7 H MCH 33.0 MCHC 33.1 RDW 14.5 H Plt Count 439 H MPV 9.1 Immature Gran % 0.3 Neutrophils % 56.0 Lymphocytes % 24.8 Monocytes % 14.2 Eosinophils % 3.3 Basophils % 1.4 Absolute Neutrophils 3.59 Absolute Lymphocytes 1.59 Absolute Monocytes 0.91 H Absolute Eosinophils 0.21 Absolute Basophils 0.09 APTT Cancelled
[2020-04-09] MEDS: Lidocaine Patch Removal 1 EACH TD (22:31)
--- NOTE | 2020-04-10 | DI.MRI_ITS ---
EXAM: MR CERVICAL SPINE WO CLINICAL HISTORY: severe neck pain, spasm. TECHNIQUE: Multiplanar multisequence MRI of the cervical spine was performed without intravenous con trast. COMPARISON: CT CT BRAIN NECK CTA from 03/28/[address] BRAIN NECK CTA from 03/28/2020 CR,XR XR CERVICAL SPINE COMP 4-5V from 04/04/2020 CR,XR XR CERVICAL SPINE COMP 4-5V from 04/04/2020 FINDINGS: BONES: Vertebral body heights are maintained. Intervertebral disc spaces are normal. Alignment is nor mal. Bone marrow signal intensity is within normal limits. CERVICAL CORD: Craniovertebral junction is unremarkable. The cervical cord is normal size and signal intensity. SOFT TISSUES: Unremarkable. C2-3: No disc herniation or bulge is identified. C3-4: Broad-based disc osteophytes causing narrowing of the AP dimension of the central canal to 5 m illimeters.. Facet degenerative changes are also present causing slight anterolisthesis. There is b ilateral neural foraminal narrowing. C4-5: Broad-based disc osteophytes narrowing the AP dimension of the central canal to 5 millimeters. Facet degenerative changes cause bilateral neural foraminal narrowing. C5-6: Moderate loss of disc height and broad-based disc osteophytes. Mild narrowing of the AP dimens ion of the central canal. Bilateral neural foraminal narrowing. C6-7: Normal disc height. Small disc osteophytes. Mild central canal stenosis and neural foraminal narrowing C7-T1: No disc herniation or bulge is identified. IMPRESSION: Advanced degenerative disc changes and facet degenerative changes cause central canal stenosis greate st at C3-4 and C4-5. Bilateral neural foraminal narrowing is seen at multiple levels. No evidence o f disc herniation.. DATA REPOSITORY:
--- NOTE | 2020-04-10 | DI.CT_ITS ---
EXAM: CT UPPER EXTREMITY RT WO CLINICAL HISTORY: severe pain TECHNIQUE: Imaging Protocol: Axial computed tomography images with coronal and sagittal reformatted images were created and reviewed. CONTRAST MATERIAL: Noncontrast COMPARISON: CR,XR XR SHOULDER RT COMPLETE 2+V from 04/04/2020 FINDINGS: There are degenerative changes at the AC joint. There are few small subchondral cysts. Subchondral cysts are also seen at the humeral head near the greater and lesser tuberosities. There is no eviden ce of fracture or dislocation. Degenerative changes are also seen at the sternoclavicular joint. Th ere is calcification at the distal supraspinatus tendon. No joint effusion is visible. There is no significant muscle atrophy. The lungs show respiratory motion. No pneumothorax or rib fracture is s een. IMPRESSION: Degenerative changes and supraspinatus calcific tendinosis. RADIATION DOSE DELIVERED: 335.78mGy.cm Total DLP DATA REPOSITORY: All CT scans at this facility are submitted to the National Radiology Data Registry (NRDR) Dose Index Registry (DIR) with the [employer] (ACR). RADIATION OPTIMIZATION: All CT scans at this facility use at least one of these dose optimization te chniques: automated exposure control; mA and/or kV adjustment per patient size (includes targeted exa ms where dose is matched to clinical indication); or iterative reconstruction.
[2020-04-10 00:02] VITALS: BP 167/89; PULSE 64; RESP 19; TEMP 37.2; O2SAT 96
[2020-04-10] MEDS: Metoprolol 25 MG TAB PO ×5 (00:07→23:31)
[2020-04-10] MEDS: Heparin 5,000 UNITS/ML VIAL 5000 UNITS SC ×3 (01:54→18:05)
[2020-04-10 04:10] VITALS: O2SAT 96
[2020-04-10 05:42] VITALS: BP 142/78; PULSE 81; RESP 20; TEMP 37.1; O2SAT 99
--- NOTE | 2020-04-10 08:26 | OTTR_ITS ---
Date of service: 04/10/20 Time of Service: 07:55 Occupational Therapy Notes Occupational Therapy Inpatient Treatment Note Date: 04/10/20 PRECAUTIONS: Fall, standard, full SUBJECTIVE: Pt was lying in bed when OT arrived. He was agreeable to OT session and notes that he would like to start his ADLs. OBJECTIVE: PAIN:no c/o pain BATHING: Standing at sink with FWW Upper Body: (I) face, min (A) (B) UE and (I) abdomen Lower Body: (I) (B) LE DRESSING: standing at sink with min vc throughout Upper Extremity: (I) don and doffing hospital gown Lower Extremity: (I) don and doffing underwear in the seated position in the bathroom. GROOMING: standing at sink (I) brushing hair ASSESSMENT/PLAN: Pt was able to tolerate standing ADLs again today. He is making progressed gain in his ADLs. OT will continue to work to get to his baseline level of function. TREATMENT CODES/TIME: 32557, 10 minutes (07:55) Jody Maldonado OTR/[facility]
[2020-04-10] MEDS: Lidocaine 5% Patch 1 PATCH TP (09:45)
[2020-04-10] MEDS: Nystatin POWDER 60 GM JAR TP ×2 (09:46→21:23)
[2020-04-10] MEDS: Magnesium Oxide 400 MG TAB PO ×2 (09:47→21:23)
[2020-04-10] MEDS: Aspirin E.C. 81 MG TABEC PO (09:47)
[2020-04-10] MEDS: Pantoprazole 40 MG TABCR PO (09:47)
[2020-04-10] MEDS: Thiamine 100 MG TAB PO (09:48)
[2020-04-10] MEDS: Multivitamin TAB 1 TAB PO (09:48)
[2020-04-10] MEDS: Allopurinol 100 MG TAB PO (09:48)
[2020-04-10 10:06] LABS: C-Reactive Protein 6.89 mg/dL (0.0-0.3)
[2020-04-10 10:40] LABS: Procalcitonin 0.1 ng/mL
[2020-04-10] MEDS: diazePAM 2 MG TAB PO (11:05)
--- NOTE | 2020-04-10 12:24 | PTTR_ITS ---
Date of service: 04/10/20 Time of Service: 09:25 PT Notes Visit Reasons: GENERALIZED WEAKNESS, URINARY RETENTION, Inpatient Physical Therapy Treatment Note [facility] Date: 04/10/2020 PRECAUTIONS: Fall SUBJECTIVE: Joaquín is pleasant and agreeable to participating in PT. Today he reports that he is agreeable to a short term SNF stay to get stronger and continue to progress toward his baseline level of function. OBJECTIVE: PAIN: C/o B shoulder discomfort during manual therapy BED MOBILITY/TRANSFERS Supine-sit: I with HOB flat Sit-stand: I Stand-sit: I Bed-chair: S Chair-bed: S GAIT Assistive Device: No AD Weight bearing: Full Assist: SBA Distance: 200' x2 Deviation: Cueing for increased step height and length, c/o hip discomfort MANUAL THERAPY: Performed manual therapy to B shoulder and neck musculature for pain relief, per Loren Aguila, attending Nurse Practitioner, request. With patient in side-lying position, performed STM and TPR techniques to upper traps, rhomboids, cervical and thoracic paraspinals, SCM, supraspinatus and infraspinatus. Wei declined need for Aqua-K heating pad following PT vinnieo n. ASSESSMENT: Patient tolerated session with complaints of R shoulder discomfort with maunal therapy and of hip discomfort with gait training without assistive device. Patient was able to tolerate gait training without use of assistive device, although requires cueing for increased step height and length. PLAN: Patient would benefit from continued gait training, as well as continued global strengthening for improved mobility. TREATMENT CODE/TIME: Session 1: 20 minutes; 62590(XE) (09:30) Session 2: 15 minutes; 41636 (11:10)
[2020-04-10 15:36] VITALS: BP 115/54; PULSE 58; RESP 18; TEMP 36.7; O2SAT 94
[2020-04-10 18:36] LABS: ESR 62 mm/hr (<or=20)
[2020-04-10 19:15] VITALS: O2SAT 93
[2020-04-10] MEDS: Bacitracin 1 PACKET TP (21:23)
[2020-04-10] MEDS: Lidocaine Patch Removal 1 EACH TD (21:31)
[2020-04-10 23:40] VITALS: BP 136/65; PULSE 65; RESP 17; TEMP 36.4; O2SAT 93
[2020-04-11] MEDS: Heparin 5,000 UNITS/ML VIAL 5000 UNITS SC ×3 (02:52→19:05)
[2020-04-11 04:10] VITALS: O2SAT 94
[2020-04-11 05:21] VITALS: BP 120/71; PULSE 71; RESP 20; TEMP 36.5; O2SAT 98
[2020-04-11] MEDS: Metoprolol 25 MG TAB PO ×3 (05:22→23:22)
--- NOTE | 2020-04-11 06:40 | OCONE_ITS ---
Date of service: 04/11/20 History of Present Illness History of Present Illness Chief Complaint: Right Shoulder Pain and Generalized Weakness Narrative: Mr. Yuan is a 79-year-old who presented to the emergency department on 24 March after being found down. It is unclear exactly how long he was down, but the estimate is at least a couple days. When he was found by EMS he was in notable distress covered in his own excrement. On admission to the emergency department he was diagnosed with rhabdomyolysis as well as possible withdrawal and an acute coronary syndrome. He was monitored in the ICU. And with conservative treatments of rehydration and medical management, he improved. His mental status improved as well. He did have a Garcia catheter placed for input output management but this was also removed and he is now voiding spontaneously. He reports generalized weakness about his body over the last recent history. He still lives independently but feels weak. He also specifies that he fell mechanically and just was unable to get up on his own which led to this. He has had some pain in the right shoulder in the past but recently the right shoulder pain has gotten worse. It is now his primary complaint. He thinks he may had surgery on his shoulder but does not remember. The pain is very intermittent in nature where many times he has no pain in certain motions cause pain. He also finds this pain usually coincides with pain in his neck and pain towards the left shoulder although the left side is nowhere as bad as the right. He is able to button his own close. He is able to use his hands and does feel somewhat clumsy but is doing most things without any dropping of items or difficulty with grasp. He does report some dizziness when he gets up quickly which he feels leads to being unsteady. However, he does report being unsteady on his feet, but I am 80. He has had a radical prostatectomy and was catheterized early on in his admission but now he is voiding spontaneously without significant or change in urinary function. He has significant medical history for ischemic cardiomyopathy, coronary artery disease, chronic kidney disease, hypertension, hyperlipidemia, and prostate cancer. He otherwise lives independently and reports no recent change in health. Consults Consult date: 04/10/20 Requesting physician: Loren Degroot Consult Reason Right Shoulder Pain Assessment and Plan Assessment and plan (1) Cervical spinal stenosis: Status: Acute Assessment and plan: Joaquín is a 79-year-old who has notable cervical stenosis, mostly at C3-4 and C4-5. He has some foraminal disease as well which could be contributing to his current shoulder symptoms. Fortunately, he does not have any significant long track signs. He does have some global weakness but he has no hyperreflexia he has a negative Maria Luisa test and no focal we akness nor urinary incontinence or retention which would suggest that he has compression to warrant urgent evaluation. However, I am concerned that his global weakness could be related to the cervical stenosis. He does have a critical amount of stenosis seen at C3-4 and C4-5 which would make him a surgical candidate but without any current need for acute spine referral. He should be follow-up as an outpatient for an evaluation by spine surgical team to discuss treatment options and for follow-up parameters to ensure that this does not progress as treating this prior to progression of symptoms is important. It is not likely to get better without surgery but at the moment necessarily progr ess. It is imperative that he works on strengthening as much as possible and maintaining his independence with ambulation and home function. (2) Calcific tendinitis of right shoulder: Status: Acute Assessment and plan: Joaquín does have right shoulder pain which is likely attributed to a chronic rotator cuff injury with notable calcific tendinitis of the right shoulder. He does have weakness and pain on examination which was suggest that this is an active issue. He likely has had this ongoing for some time but it is most recently flared up with his increasing activity in the pursuit of rehabilitation and strength. I do not find any concerning features for infection as he has no pain with passive motion. The pain is intermittent. He has no fevers and chills. There is no fluid palpable on examination nor on the CT scan and he is a relatively thin individual. Therefore, I offered a subacromial injection. He tolerated this well and was able demonstrate better range of motion of the right shoulder with less pain after the injection was completed. A Band-Aid was applied and he tolerated it well. There is really no need for formal follow-up as this likely is entered the exacerbation. However, if he has any chronic right shoulder pain he is welcome to see me or my partner, Dr. Green, and follow-up. Continue with gentle physical therapy focusing on active and active assisted range of motion. Review of Systems All systems reviewed & are unremarkable except as noted in HPI and below PFSH Medical History Bladder neck contracture CAD (coronary artery disease) Chronic kidney disease DNI (do not intubate) DNR (do not resuscitate) Hypercholesterolemia Hypertension Ischemic cardiomyopathy Palliative care patient POLST (Physician Orders for Life-Sustaining Treatment) Prostate cancer Surgical History History of heart artery stent S/P prostatectomy Status post THR (total hip replacement) Social History Smoking/Tobacco Use Status: Former Tobacco Use Smoking risk assessment performed?: Yes Alcohol Intake: current Alcohol type: other Drug use: Never Substance use type: does not use Current gender identity: male Do you feel safe at home: Yes Do you feel safe in your relationship?: Yes Exam Const General: cooperative, healthy appearing, comfortable and no acute distress Nutritional Appearance: average body habitus Orientation: alert, awake and oriented x3 Neck Neck: normal visual inspection Back/Spine/Pelvis Cervical Spine: loss of normal cervical lordosis, pain with cervical ROM (mostly in flexion) and cervical ROM abnormal (global limitation of motion) Neuro Motor: muscle tone normal throughout Sensory Exam: no sensory deficits noted Extrem Other: Right Shoulder: No obvious deformity Skin is intact without signs of infection or signs of previous surgery. Prominence anteriorly but no fluid collection. AROM - Flex: 130, Abduction: 110, External Rotation: 65, Internal Rotation: L4 PROM -passively I can gain him to about 150 degrees of both flexion and abduction with some pain Strength - Empty Can (abduction): 4/5, External Rotation: 4/5, Internal Rotation: 4+/5 Pain with resisted motion No pain with passive range of motion SPECIFIC TESTS: Empty Can: Positive for pain Hornblowers: Negative Belly Press: Mildly painful Bear Hugger's Test: Causes pain over the AC joint Neer Impingement: Positive Tate Impingement: Negative Speed's: Positive Yergason's: Negative AC pain with cross body adduction: Positive [place]: Positive Spurling maneuver does cause pain into the shoulder although it does not go all the way down the arm. Some pain with palpation over the anterior subacromial bursa Palpable radial pulse Motor testing demonstrates relatively global weakness. In his upper extremities he does have some escape of the little finger with holding the hand in a deducted position. He also finds it difficult to do repetitive grasping, slowing down, and unable to complete 20 reps. An isolated testing of shoulder abduction and elbow flexion as well as wrist extension, he does have slight more weakness than the other motor groups, 4 out of 5 at worst. However, there is no gross weakness throughout testing except for those C5 and C6 motor units. Negative Maria Luisa. Negative Babinski. No clonus. Results Last Vital Signs Temp 36.5 C 04/11/20 05:21 Pulse 71 04/11/20 05:21 Resp 20 04/11/20 05:21 BP 120/71 04/11/20 05:21 Pulse Ox 98 04/11/20 05:21 Labs Result diagrams: 04/11/20 06:56 Labs: Laboratory Results - last 24 hr 04/10/20 04/10/20 04/10/20 09:45 09:45 09:45 ESR 62 C-Reactive Protein 6.89 H Procalcitonin 0.1 Imaging Imaging Studies: X-ray of the right shoulder was reviewed and demonstrates cystic change about the greater tuberosity as well as arthritis of the AC joint. There is notable calcific disease seen at the distal extent of the presumed rotator cuff tendons with calcific disease present just over the greater tuberosity. There is some mild glenohumeral arthritis. No destructive lesions. CT scan of the right shoulder was reviewed and demonstrates similar findings with calcific tendinopathy over the distal extent of the supraspinatus tendon. There are some cystic changes of the greater tuberosity which are most likely indicative of chronic impingement and rotator cuff dysfunction. There are some arthritic changes seen throughout the shoulder but there is still some maintained joint space. No suspicious fluid collections. No notable effusion present. Significant arthritis of the SC and AC joints. MRI of the cervical spine was reviewed as well and this demonstrates notable cervical stenosis. There is some mild anterior listhesis of C3 on C4 with notable stenosis centrally at C3-4 and C4-5 and to a lesser extent at C5-6. There is complete effacement of the cord at this level with no visible CSF. At the C3-4 and C4-5 level there is also notable foraminal stenosis, affecting more so the right side than the left side. Foraminal stenosis is also present at C5- 6 and to a lesser extent, C6-7. I do not see any significant myelomalacia alth ough there is some mild change in the cord signal on this T1 and T2 images at the level C3-4 and C4-5. There is a compression ratio of 0.45 with the smallest diameter measuring approximately 4.5 mm at C4-5 with the largest transverse diameter measuring about 10 mm. Procedures Bursa Procedures Site of procedure: shoulder/SA bursa XRAY obtained: positive calcification Antisepsis used: other (Alcohol) Local anesthetic used: Bupivicaine 0.5% Medication injected: methylprednisolone acetate Amount of medication used (mg): 80 Lidocaine added to medication: Yes Patient tolerated procedure: well Complications: none Additional comments: PROCEDURE: After a review of the risks of the injection, the patient agreed to proceed. The RIGHT shoulder was identified by the patient as the correct side. The posterolateral border of the acromion was identified and marked. The skin was cleansed and prepped with alcohol. The subacromial space was entered from the posterior approach without difficulty. The injection, consisting of 5cc of 0.5% Bupivicaine and 80mg of DepoMedrol, was injected without difficulty or resistance. The patient tolerated the procedure well and the injection site was dressed with a Band-Aid.
[2020-04-11 07:01] VITALS: BP 116/65; PULSE 57; RESP 22; TEMP 36.4; O2SAT 95
[2020-04-11 07:08] LABS: HCT 29.4 % (40.0-50.0); HGB 9.7 g/dL (13.5-17.5); MCH 32.7 pg (27.0-33.0); MPV 9.2 fL (8.0-11.0); Platelet Count 439 10^3/uL (130-400); RBC 2.97 10^6/uL (4.36-5.78); RDW 14.6 % (11.8-14.1); RDW-SD 52.8 fL; WBC 7.98 10^3/uL (4.4-10.8)
--- NOTE | 2020-04-11 09:05 | PT.INTREAT ---
PT Notes Visit Reasons: GENERALIZED WEAKNESS, URINARY RETENTION, 04/11/2020 SUBJECTIVE: Joaquín stating he is getting an injection in his shoulder today. He complains of some discomfort in left hip with walking. He notes this has been replaced a long time ago. OBJECTIVE: 17470. [id number] TRANSFERS Sit to stand: I Stand to sit: I GAIT Device: No AD Weight bearing: Full Assist: SBA Distance: 200' Deviation: 2 stand rest breaks due to SOB THEREX: Standing balance tasks including small MARK and tandem stance. Functional sit to stands and other seated LE strengthening exercises. Avoid exercise and manual therapy to UE due to upcoming injection. See flow sheet ASSESSMENT: Tolerates PT well today with improving activity tolerance. Injection scheduled for today in hopes to decrease right shoulder discomfort. PLAN: Continue current POC. Treatment time: 25' Helene Iraheta PTA Clinic location: [facility] [place], [place]
[2020-04-11] MEDS: Aspirin E.C. 81 MG TABEC PO (09:11)
[2020-04-11] MEDS: Multivitamin TAB 1 TAB PO (09:11)
[2020-04-11] MEDS: Magnesium Oxide 400 MG TAB PO ×2 (09:11→19:06)
[2020-04-11] MEDS: Allopurinol 100 MG TAB PO (09:11)
[2020-04-11] MEDS: Pantoprazole 40 MG TABCR PO (09:11)
[2020-04-11] MEDS: Bacitracin 1 PACKET TP ×2 (09:11→19:06)
[2020-04-11] MEDS: Bupivacaine 0.5% Pres-Free 10 ML VIAL IJ (09:12)
[2020-04-11] MEDS: methylPREDNISolone ACETATE 80 MG/ML VIAL IJ (09:12)
[2020-04-11] MEDS: Lidocaine 5% Patch 1 PATCH TP (09:12)
[2020-04-11] MEDS: Nystatin POWDER 60 GM JAR TP ×2 (09:14→19:07)
[2020-04-11 09:15] VITALS: O2SAT 95
[2020-04-11] MEDS: Thiamine 100 MG TAB PO (12:36)
[2020-04-11 19:21] VITALS: BP 117/63; PULSE 60
[2020-04-11] MEDS: Lidocaine Patch Removal 1 EACH TD (20:52)
[2020-04-11 23:21] VITALS: BP 153/72; PULSE 63; RESP 19; TEMP 36.4; O2SAT 93
[2020-04-12] MEDS: Heparin 5,000 UNITS/ML VIAL 5000 UNITS SC ×3 (01:42→18:18)
[2020-04-12 05:32] VITALS: BP 156/66; PULSE 63; RESP 18; TEMP 37; O2SAT 94
[2020-04-12] MEDS: Metoprolol 25 MG TAB PO ×4 (05:34→23:54)
[2020-04-12] MEDS: Magnesium Oxide 400 MG TAB PO ×2 (07:43→21:10)
[2020-04-12] MEDS: Aspirin E.C. 81 MG TABEC PO (07:44)
[2020-04-12] MEDS: Thiamine 100 MG TAB PO (07:44)
[2020-04-12] MEDS: Allopurinol 100 MG TAB PO (07:44)
[2020-04-12] MEDS: Pantoprazole 40 MG TABCR PO (07:44)
[2020-04-12] MEDS: Multivitamin TAB 1 TAB PO (07:44)
[2020-04-12 07:58] VITALS: BP 148/71; PULSE 64; RESP 18; TEMP 36.1; O2SAT 94
--- NOTE | 2020-04-12 08:45 | PT.INTREAT ---
Date of service: 04/12/20 Time of Service: 07:55 PT Notes Visit Reasons: GENERALIZED WEAKNESS, URINARY RETENTION, Inpatient Physical Therapy Treatment Note [facility] Date: 04/12/2020 PRECAUTIONS: Fall SUBJECTIVE: Joaquín is pleasant and agreeable to participating in PT. He reports decreased pain in his shoulder following injection yesterday. OBJECTIVE: PAIN: No c/o pain BED MOBILITY/TRANSFERS Sit-stand: I Stand-sit: I GAIT Assistive Device: No AD Weight bearing: Full Assist: SBA Distance: 150' x2 Deviation: Seated rest x1, increased L hip pain THEREX: Patient completed a LE strengthening program, in a standing position, as per flow sheet. STAIRS: Up/down 3x4 and 2x6 using B rails and a step-to pattern with supervision ASSESSMENT: Patient tolerated session well with complaint of increased fatigue and L hip discomfort with gait training. He was able to tolerate a progression in his ther ex program, tolerating LE strengthening exercises in a standing position. PLAN: Continue with global strengthening and gait training without asssitive device for continued progression toward baseline level of function. TREATMENT CODE/TIME: 25 minutes; [id number], [id number] (07:55)
[2020-04-12] MEDS: Nystatin POWDER 60 GM JAR TP ×2 (10:03→21:10)
[2020-04-12] MEDS: Acetaminophen 325 MG TAB 650 MG PO (16:34)
[2020-04-13] MEDS: Heparin 5,000 UNITS/ML VIAL 5000 UNITS SC ×3 (02:08→18:06)
[2020-04-13] MEDS: Metoprolol 25 MG TAB PO ×4 (05:59→23:57)
[2020-04-13 07:18] LABS: HGB 9.9 g/dL (13.5-17.5); MPV 10.1 fL (8.0-11.0); Platelet Count 408 10^3/uL (130-400); RDW 14.4 % (11.8-14.1); RDW-SD 52.9 fL; WBC 7.45 10^3/uL (4.4-10.8)
[2020-04-13] MEDS: Pantoprazole 40 MG TABCR PO (07:49)
[2020-04-13] MEDS: Thiamine 100 MG TAB PO (07:49)
[2020-04-13] MEDS: Multivitamin TAB 1 TAB PO (07:49)
[2020-04-13] MEDS: Aspirin E.C. 81 MG TABEC PO (07:49)
[2020-04-13] MEDS: Allopurinol 100 MG TAB PO (07:49)
[2020-04-13] MEDS: Magnesium Oxide 400 MG TAB PO ×2 (07:49→21:04)
[2020-04-13 08:11] VITALS: BP 137/75; PULSE 60; RESP 20; TEMP 36.6; O2SAT 99
[2020-04-13] MEDS: Lidocaine 5% Patch 1 PATCH TP (10:58)
[2020-04-13] MEDS: Nystatin POWDER 60 GM JAR TP ×2 (10:59→21:04)
--- NOTE | 2020-04-13 12:37 | PT.INTREAT ---
Date of service: 04/13/20 Time of Service: 11:25 PT Notes Visit Reasons: GENERALIZED WEAKNESS, URINARY RETENTION, Inpatient Physical Therapy Treatment Note [facility] Date: 04/13/2020 PRECAUTIONS: Fall SUBJECTIVE: Joaquín is pleasant and agreeable to participating in PT. He reports decreased pain in his shoulder following injection yesterday. He is looking forward to going home, he hopes soon. OBJECTIVE: Based on patient's level of functional mobility and ability to make safe decisions, he is cleared to be independent within room with ambulation and transfers, at this time. Discussed with nursing. PAIN: No c/o pain BED MOBILITY/TRANSFERS Supine-sit: I Sit-stand: I Stand-sit: I GAIT Assistive Device: No AD Weight bearing: Full Assist: S Distance: 300' x2 Deviation: Seated rest x1, minimal SOB THEREX: Patient completed a LE strengthening program, in a standing position, as per flow sheet. He also completes functional heo-rj-[id number] exercise without use of UE support. ASSESSMENT: Patient tolerated session well with minimal complaint of increased SOB with gait training. He was able to tolerate a progression in his ther ex program and in gait distance without use of assistive device. PLAN: Continue with global strengthening and gait training without assistive device for continued progression toward baseline level of function. TREATMENT CODE/TIME: 30 minutes; 39559, [id number] (11:35)
--- NOTE | 2020-04-13 15:51 | CMACTNOTE_ITS ---
Care Management Activity Note Joaquín continues to enjoy visiting with his family on the phone and through face time. He is pleasant in interaction at baseline during CM interactions. Joaquín was lying in bed when CM met with him. He requested support with a bill received from [facility] for 03/30/20. CM called billing [employer] and provided insurance information as Joaquín was being billed as an uninsured patient. Joaquín shared gratitude for the support. CM discussed Joaquín's progress with AGUSTÍN Soto who reported Joaquín is doing well he will likely be able to return home by the end of the week with new VNA supports. CM discussed discharge planning with Joaquín who shared excitement at the notion of returning directly home. He declined [facility] supports stating my son lives right down the road and could deliver any needed items. Anticipate with continued stability and progress, Joaquín will return home to his apartment in [place] with new orders for VNA PT. CM will continue to follow.
[2020-04-13] MEDS: Lidocaine Patch Removal 1 EACH TD (21:05)
[2020-04-14 00:02] VITALS: TEMP 37
[2020-04-14] MEDS: Heparin 5,000 UNITS/ML VIAL 5000 UNITS SC ×3 (02:12→18:10)
[2020-04-14] MEDS: Metoprolol 25 MG TAB PO ×4 (05:32→23:54)
[2020-04-14 07:48] LABS: ALT 87 U/L (16-63); AST 83 U/L (15-37); Albumin 2.7 g/dL (3.4-5.0); Alkaline Phosphatase 327 U/L (46-116); Anion Gap 6.8 mmol/L (3-11); BUN 30 mg/dL (7-18); Bilirubin, Total 0.5 mg/dL (0.2-1.0); C-Reactive Protein 8.57 mg/dL (0.0-0.3); CO2 26.2 mmol/L (21.0-32.0); CREATININE 1.3 mg/dL (0.70-1.30); Calcium 9.1 mg/dL (8.5-10.1); Chloride 98 mmol/L (98-107); Estimated GFR 53.25 (mL/min/1.73m2); Glucose 87 mg/dL (74-106); Potassium 5.1 mmol/L (3.5-5.1); Sodium 131 mmol/L (136-145); Total Protein 7.4 g/dL (6.4-8.2)
[2020-04-14 08:15] VITALS: BP 161/72; PULSE 74; RESP 20; TEMP 36.8; O2SAT 97
[2020-04-14] MEDS: Aspirin E.C. 81 MG TABEC PO (08:52)
[2020-04-14] MEDS: Allopurinol 100 MG TAB PO (08:52)
[2020-04-14] MEDS: Magnesium Oxide 400 MG TAB PO ×2 (08:53→21:04)
[2020-04-14] MEDS: Pantoprazole 40 MG TABCR PO (08:53)
[2020-04-14] MEDS: Multivitamin TAB 1 TAB PO (08:53)
[2020-04-14] MEDS: Lidocaine 5% Patch 1 PATCH TP (09:36)
[2020-04-14] MEDS: Nystatin POWDER 60 GM JAR TP ×2 (09:41→21:04)
[2020-04-14] MEDS: Thiamine 100 MG TAB PO (09:42)
[2020-04-14 10:05] LABS: Folate 14.9 ng/mL (8.6-20.0); Vitamin B12 656 pg/mL (193-986)
[2020-04-14 11:25] VITALS: BP 153/71; PULSE 65; RESP 16
--- NOTE | 2020-04-14 13:06 | PT.INTREAT ---
Date of service: 04/14/20 Time of Service: 12:30 PT Notes Visit Reasons: GENERALIZED WEAKNESS, URINARY RETENTION, Inpatient Physical Therapy Treatment Note [facility] Date: 04/14/2020 PRECAUTIONS: Fall SUBJECTIVE: Joaquín is pleasant and agreeable to participating in PT. He is looking forward to going home, he hopes on , because his son has the day off. OBJECTIVE: Based on patient's level of functional mobility and ability to make safe decisions, he is cleared to be independent within room with ambulation and transfers, at this time. Discussed with nursing. PAIN: No c/o pain BED MOBILITY/TRANSFERS Sit-stand: I Stand-sit: I Bed-chair: I Chair-bed: I GAIT Assistive Device: No AD Weight bearing: Full Assist: S - I Distance: 300' x2 Deviation:Minimal SOB THEREX: Patient completed a LE strengthening program, in a standing position, as per flow sheet. STAIRS: Up/down 6x4 and 4x6 using B rails and a step over pattern with supervision ASSESSMENT: Patient tolerated session well with minimal complaint of increased SOB with gait training. He was able to tolerate a progression in his ther ex program and in gait distance without use of assistive device. PLAN: Continue with global strengthening and gait training without assistive device for continued progression toward baseline level of function. TREATMENT CODE/TIME: 30 minutes; 22983, [id number] (12:30)
[2020-04-14] MEDS: Lidocaine Patch Removal 1 EACH TD (21:04)
[2020-04-14 23:53] VITALS: BP 168/79; PULSE 83; RESP 18; TEMP 36.4; O2SAT 93
[2020-04-15] MEDS: Heparin 5,000 UNITS/ML VIAL 5000 UNITS SC ×3 (01:57→17:40)
[2020-04-15 05:11] VITALS: BP 156/80; PULSE 77; RESP 18; TEMP 37; O2SAT 93
[2020-04-15] MEDS: Metoprolol 25 MG TAB PO ×4 (05:14→23:39)
[2020-04-15 07:10] VITALS: BP 150/73; PULSE 62; RESP 20; TEMP 36.4; O2SAT 97
[2020-04-15] MEDS: Allopurinol 100 MG TAB PO (08:26)
[2020-04-15] MEDS: Pantoprazole 40 MG TABCR PO (08:26)
[2020-04-15] MEDS: Magnesium Oxide 400 MG TAB PO ×2 (08:26→20:45)
[2020-04-15] MEDS: Aspirin E.C. 81 MG TABEC PO (08:26)
[2020-04-15] MEDS: Thiamine 100 MG TAB PO (08:26)
[2020-04-15] MEDS: Multivitamin TAB 1 TAB PO (08:26)
[2020-04-15 11:56] VITALS: BP 127/67; PULSE 68
--- NOTE | 2020-04-15 12:40 | OTDS_ITS ---
Date of service: 04/15/20 Time of Service: 08:15 Occupational Therapy Notes Occupational Therapy Inpatient Discharge Summary Date: 04/15/20 Dates of Service: 04/09/20-04/15/20 Referring Doctor: Dr. Moreno OT Orders: Non-Urgent Precautions: Fall, standard, full PATIENT PROFILE/ADMITTING DIAGNOSIS: Pt is a 79 year old male who was admitted in the ICU and admitted for the following dx bladder neck contracture, acute kidney injury superimposed on chronic kidney disease, rhabdomyolysis, elevated troponin, acute dehydration, and EtOH dependence. He was transitioned to [facility] rehabilitation status on 04/08/20. Past Medical History: Medical History (Updated 03/24/20 @ 16:56 by Mónica Moreno MD) Bladder neck contracture CAD (coronary artery disease) Chronic kidney disease Hypercholesterolemia Hypertension Ischemic cardiomyopathy Prostate cancer Surgical History History of heart artery stent S/P prostatectomy Status post THR (total hip replacement) Social History/Home Situation: Pt states that he lives alone and has a daughter. He notes that he is (I) at his baseline level of function and doesn't require any (A). He states that he uses a sock aide for his socks, he has adaptive equipment such as a sock aid, supervisor cemetery workers and long handled shoe horn. SUBJECTIVE: Pt was sitting in chair when OT arrived. He reports that he believes that he is returning home tomorrow and feels that he is back to his baseline level of function. OBJECTIVE: ROM: RUE AROM WFL L UE AROM WFL STRENGTH: RUE shoulder flexion 4+/5, bicep 4/5, tricep 4-/5, director drug safety is symmetrical LUE shoulder flexion 4+/5, bicep 4-/5, tricep 4-/5, director drug safety is symmetrical FUNCTIONAL MOBILITY/ADLS: BATHING: Standing at sink with FWW Upper Body: (I) face, min (A) (B) UE and (I) abdomen Lower Body: (I) (B) LE DRESSING: sitting at chair Upper Extremity: (I) don and doffing shirt Lower Extremity: (I) don and doffing underwear, pants, socks and shoes GROOMING: standing at sink (I) brushing hair and teeth Eating- (I) BALANCE: Static sitting Normal Dynamic Sitting Normal Static standing: Normal Dynamic Standing: Normal ASSESSMENT: Patient is a 79-year-old male referred to occupational therapy [facility] with diagnosis of bladder neck contracture, acute kidney injury superimposed on chronic kidney disease, rhabdomyolysis, elevated troponin, acute dehydration, and EtOH dependence pt transitioned to [facility] rehabilitation on 04/08/20. Pt has made significant gains in terms of his ADL/IADL Routines. He is able to demonstrate his ADLs at his baseline level of function, pt states that he is at his baseline and he is demonstrating ideal safety and functional activity tolerance to be successful in his home environment. GOALS- ALL MET 1. Transfers (I) 2. Dressing (I) seated with donning and doffing pants and shirt 3. Bathing (I) standing at sink 4. Toileting (I) toileting hygiene PLAN OF CARE/TREATMENT PLAN: Discharge from skilled OT services. DISCHARGE RECOMMENDATIONS OT recommends that pt return home when medically cleared per MD. TREATMENT TIME/MINUTES/CODES 76285, 10 minutes (08:15) [facility]
--- NOTE | 2020-04-15 15:18 | PT.INTREAT ---
Date of service: 04/15/20 Time of Service: 14:15 PT Notes Visit Reasons: GENERALIZED WEAKNESS, URINARY RETENTION, Inpatient Physical Therapy Treatment Note [facility] Date: 04/15/2020 PRECAUTIONS: Fall SUBJECTIVE: Joaquín is pleasant and agreeable to participating in PT. He is looking forward to going home tomorrow. He would like to accept [facility] program. OBJECTIVE: Based on patient's level of functional mobility and ability to make safe decisions, he is cleared to be independent within room and hallway with ambulation and transfers, at this time. Discussed with nursing. PAIN: No c/o pain BED MOBILITY/TRANSFERS Supine-sit: I Sit-stand: I Stand-sit: I Bed-chair: I Chair-bed: I GAIT Assistive Device: No AD Weight bearing: Full Assist: I Distance: 300' x2 Deviation:Minimal SOB THEREX: Patient completed a LE strengthening program, in a standing position, as per flow sheet. STAIRS: Up/down 3x4 and 2x6 using B rails and a step over pattern with supervision ASSESSMENT: Patient tolerated session well with minimal complaint of increased SOB with gait training. He was able to tolerate a progression in his ther ex program and in gait distance without use of assistive device. PLAN: Continue with global strengthening and gait training without assistive device for continued progression toward baseline level of function. TREATMENT CODE/TIME: 30 minutes; 25736, 05115 (14:15)
[2020-04-15 17:36] VITALS: BP 149/78; PULSE 66
[2020-04-15] MEDS: Nystatin POWDER 60 GM JAR TP (20:46)
[2020-04-15 23:35] VITALS: BP 150/70; PULSE 89; RESP 18; TEMP 36.8; O2SAT 96
[2020-04-16] MEDS: Heparin 5,000 UNITS/ML VIAL 5000 UNITS SC (02:13)
[2020-04-16 05:06] VITALS: BP 170/71; PULSE 80; RESP 18; TEMP 35.3; O2SAT 95
[2020-04-16] MEDS: Metoprolol 25 MG TAB PO ×2 (05:08→11:26)
[2020-04-16 07:20] VITALS: BP 164/74; PULSE 65; RESP 28; TEMP 36.5; O2SAT 98
[2020-04-16] MEDS: Aspirin E.C. 81 MG TABEC PO (07:40)
[2020-04-16] MEDS: Multivitamin TAB 1 TAB PO (07:40)
[2020-04-16] MEDS: Thiamine 100 MG TAB PO (07:41)
[2020-04-16] MEDS: Magnesium Oxide 400 MG TAB PO (07:41)
[2020-04-16] MEDS: Allopurinol 100 MG TAB PO (07:41)
[2020-04-16] MEDS: Pantoprazole 40 MG TABCR PO (07:41)
[2020-04-16] MEDS: Nystatin POWDER 60 GM JAR TP (07:44)
--- NOTE | 2020-04-16 09:02 | DSE_ITS ---
Date of service: 04/16/20 Time of Service: 09:02 DS: Diagnosis Discharge Diagnosis (1) Cervical spinal stenosis: Status: Acute (2) Calcific tendinitis of right shoulder: Status: Acute Discharge Plan Disposition Patient Disposition: HOME W/HOME HEALTH SERVICE Condition: Stable Discharge Details Reason For Visit: GENERALIZED WEAKNESS, URINARY RETENTION, Admit Date/Time: 04/08/20 10:45 Admit Provider: Mónica Moreno Attending Provider: Mónica Moreno Primary Care Provider: Taz Collins Hospital Course Hospital Course: This is a 79 year old male with complex medical history found on the ground at home, admitted for acute on chronic renal failure, rhabdomyolysis, and elevated troponin. hospital course complicated by urinary retention requiring indwelling cath placed by dr kim, altered mental status, acute hypernatremia requiring intubation and correction. he was stabilized and returned to his baseline, began working with PT/OT with recommendations for discharge to swing level care. case management following and patient was discharged here to swing level care with anticipated discharge to health and rehab when a bed became available. while on swing care he was seen by orthopedics for caclific tendonitis of right shoulder, for which he received injection which was effective for his pain. He also consulted on his cervical spine stenosis with following recommendations. He does have a critical amount of stenosis seen at [facility] and [facility] which would make him a surgical candidate but without any current need for acute spine referral. He should be follow-up as an outpatient for an evaluation by spine surgical team to discuss treatment options and for follow-up parameters to ensure that this does not progress as treating this prior to progression of symptoms is important. It is not likely to get better without surgery but at the moment necessarily progress. It is imperative that he works on strengthening as much as possible and maintaining his independence with ambulation and home function. He remained here, medically stable and was working with PT/OT and progressing to the point he can now be discharge to home with home health services. He will follow up outpatient with orthopedics and spine as recommended. discussed with Dr Waldrop Home Meds and New Rx's Prescriptions: New pantoprazole 40 mg Tablet,Delayed Release (Dr/Ec) 40 mg PO DAILY@0730 Qty: 30 RF: 0 lidocaine [Lidoderm] 5 % Adhesive Patch,Medicated 1 patch topical Q24H Qty: 30 RF: 0 thiamine mononitrate (vit B1) [Vitamin B-1 (mononitrate)] 100 mg Tablet 100 mg PO DAILY Qty: 30 RF: 0 Continued nitroglycerin 0.4 MG tablet, sublingual 0.4 mg Sublingual PRN PRNRF: 0 acetaminophen [Tylenol Arthritis Pain] 650 MG tablet extended release 1,300 mg PO Q6H PRN PRNQty: 0 RF: 0 aspirin [Aspir-81] 81 MG tablet,delayed release (DR/EC) 81 mg PO DAILY RF: 0 magnesium L-lactate 84 mg Tablet Extended Release 84 mg PO DAILY RF: 0 Changed allopurinol 100 MG tablet 100 mg PO DAILY Qty: 0 RF: 0 metoprolol succinate 25 MG tablet extended release 24 hr 100 mg PO DAILY Qty: 0 RF: 0 Discontinued atorvastatin 80 MG tablet 80 mg PO DAILY RF: 0 potassium chloride 10 MEQ capsule, extended release 20 meq PO DAILY RF: 0 furosemide 40 MG tablet 40 mg PO DAILY RF: 0 metolazone 2.5 MG tablet 2.5 mg PO DIRECTED RF: 0 losartan 25 MG tablet 100 mg PO DAILY RF: 0 Discharge Instructions Instructions: Palliative Care (GEN), Cervical Spinal Stenosis (DC), Calcific Tendinitis (GEN), Chronic Kidney Disease (DC) Stand Alone Forms: Nursing Discharge Form Referrals: [facility] [place] [facility] [place] - 04/21/20 8:50 am ([employer] Area [facility]B, ) Taz Collins MD [Primary Care Provider] - 04/23/20 11:00 am Activity:: Activity as Tolerated Equipment/Supplies:: Walker Diet:: As Tolerated Discharge Orders Discharge Orders: Discharge Order (Routine); Ordered 04/16/20 Ordered By: Jayshree Amaya DS: Summary Time Spent with Patient providing and/or coordinating discharge services: Greater than 30 minutes Status at Discharge Functional status at discharge: uses cane/walker Overall status at discharge: patient is progressing back to baseline Mental Status: mental status grossly normal Speech and Movement: speech and movement normal Mood: congruent mood Affect: normal affect Exam Const General: cooperative, healthy appearing, comfortable and no acute distress Nutritional Appearance: average body habitus and well nourished Orientation: alert, awake and oriented x3 HENMT Head: normal to inspection, normocephalic and atraumatic Mouth: oral mucosae normal Chest Chest: normal inspection of the chest Resp Effort & Inspection: normal respiratory effort Auscultation: clear to auscultation bilaterally Cardio Rate: regular rate Rhythm: regular rhythm GI Inspection: normal to inspection Palpation: soft Auscultation: normal bowel sounds Skin General skin exam: no rashes or lesions noted Neuro General: patient alert, patient awake and patient oriented x3 Cognition: normal cognition Speech: speech normal Extrem General: normal to inspection Psych Mental Status: mental status grossly normal Speech and Movement: speech and movement normal Mood: congruent mood Affect: normal affect DS: Data Vitals/I&O Vitals and I&O: Vital Signs Temperature 36.5 C 04/16/20 07:20 Temperature Source Tympanic 04/16/20 07:20 Pulse 65 04/16/20 07:20 Pulse Rhythm Regular 04/16/20 04:53 Respiratory Rate 28 H 04/16/20 07:20 Respiratory Effort Non-Labored 04/16/20 04:53 Respiratory Depth Normal 04/16/20 04:53 Respiratory Pattern Normal 04/16/20 04:53 Blood Pressure 164/74 H 04/16/20 07:20 Pulse Oximetry 98 04/16/20 07:20 Oxygen Delivery Method Room Air 04/16/20 07:20 Oxygen Flow Rate 0 04/16/20 07:20 Pain Level 0 04/16/20 08:29 Comment 04/16/20 08:29 Intake & Output 04/15/20 04/15/20 04/16/20 11:59 23:59 11:59 Intake Total 890 / 2470 1580 / 2470 Balance 890 / 2470 1580 / 2470 Intake: Oral 890 / 2470 1580 / 2470 Other: Urine Color Yellow Pale Urine Appearance Clear Clear Clear Urine Odor Normal Normal Comment Void x1 in the toilet. Void x1 in the toilet. Voiding Methods Toilet Toilet Toilet [facility] Medical History Bladder neck contracture CAD (coronary artery disease) Chronic kidney disease DNI (do not intubate) DNR (do not resuscitate) Hypercholesterolemia Hypertension Ischemic cardiomyopathy Palliative care patient POLST (Physician Orders for Life-Sustaining Treatment) Prostate cancer Surgical History History of heart artery stent S/P prostatectomy Status post THR (total hip replacement) Social History Smoking/Tobacco Use Status: Former Tobacco Use Smoking risk assessment performed?: Yes Alcohol Intake: current Alcohol type: other Drug use: Never Substance use type: does not use Current gender identity: male Do you feel safe at home: Yes Do you feel safe in your relationship?: Yes
--- NOTE | 2020-04-16 09:03 | PDOC.HHF2F ---
Home Health Certification Home Health Certification: 1. Encounter Date and Reason I certify that PETEY SMITH was seen by Jayshree Amaya on 04/16/20 and that I had a [id number] encounter with this patient that meets the physician face to face encounter requirements. 2. Clinical Findings Supporting Skilled Need and Homebound Status I certify that home health services are medically necessary, include either intermittent penitentiary and/or physical/speech therapy, and that this patient is homebound in that absences from the home require considerable and taxing effort and are infrequent or of short duration, or are attributable to the need to receive medical care. [X] (a) Attached documentation from encounter provides clinical findings supporting skilled need and homebound status (including what assistance patient requires to leave the home). The encounter with the patient was in whole, or in part, for the following medical condition, which is the primary reason for home health care: GENERALIZED WEAKNESS, URINARY RETENTION, Chcf: routine nursing for evaluation, medication oversight. Physical and Occupational Therapy: routine evaluation and treatment Homebound: unable to safely leave the house unassisted and ambulation is limited due to decreased strength and endurance, 3. Certification and Authentication I certify that I composed the above information based on my clinical judgement relating to this patient's medical condition and, if applicable, clinical findings communicated to me by the NPP or inpatient physician who performed the Home Health Referral. All further orders will be obtained through (Community Based Physician - PCP)
[2020-04-16 11:24] VITALS: BP 136/71; PULSE 66
--- NOTE | 2020-04-16 13:37 | PDOC.CMDIS ---
LACE Index Scoring Tool - Questions: Length of Stay (in days): 7 - 13 Acuity (Admit via E.D.?): Yes Comorbidities: Any Tumor, Liver or Renal Disease E.D. Visits: 1 - Answers: Total Score: 14 Risk of Readmission: High Risk Care Management Discharge Reason for Hospitalization: Generalized weakness, Urinary retention Discharge Plan: Joaquín will return home when ready per MD. He will have new orders for VNA/RN, PT, OT, [employer] (for terminologist planning and evaluation for increased services). CM also faxed referral for MOW to begin at home. Joaquín will transport via private vehicle with his son, Domingo. Patient/Family Education Needs: Review discharge instructions, discuss Ask Me Three. Services Needed at Discharge: Home Delivered Meals (MOW), Home Health Care Services (RN, PT, OT, [employer])
--- NOTE | 2020-04-20 14:23 | PT.INDS ---
Date of service: 04/20/20 PT Notes Visit Reasons: GENERALIZED WEAKNESS, URINARY RETENTION, Physical Therapy Swing Bed Level 1 Discharge Summary Date: 04/20/2020 Dates of service: 04/09/2020 through 04/15/2020 This is a clinical summary of care provided on the duration of dates listed above. No charge was made in the completion of this documentation. Referring Doctor: Jayshree Amaya NP PT Orders: PT CONSULT: Limited ability Precautions: Fall. Standard. Activity as tolerated. Patient Profile/Admitting Diagnosis: Joaquín is a 79-year-old male with CAD, HTN, and ischemic cardiomyopathy who was brought in to the ED by EMS on 03/24/2019. Patient was found on floor by EMS personnel during a welfare check after 3 days of being inaccessible. Patient is diagnosed with bladder neck contracture, acute kidney injury superimposed on chronic kidney disease, rhabdomyolysis, elevated troponin, acute dehydration, and EtOH dependence and received previous physical therapy services from 03/26/2020 through 04/08/2020. Skilled PT services continue to be provided with diagnosis of generalized weakness, chronic kidney disease, and ischemic cardiomyopathy with an EF of 50% as per last echo in February 2020. PMHX: Medical History (Updated 03/24/20 @ 16:56 by Mónica Moreno MD) Bladder neck contracture CAD (coronary artery disease) Chronic kidney disease Hypercholesterolemia Hypertension Ischemic cardiomyopathy Prostate cancer Surgical History History of heart artery stent S/P prostatectomy Status post THR (total hip replacement) Social History/Home Situation: Unable to extract information from patient at this time due to decreased level of alertness. Please see care management notes. Equipment Owned/DME: Unknown at this time Subjective: NT. See most recent [employer] [employer] [facility] notes. Objective: General Observation: NT. See most recent [facility] [facility] notes. Mental Status: NT. See most recent [employer] [employer] [facility] notes. ROM: Cervical spine: Painful posterior neck with doing shoulder circles, shoulder elevation, and cervical extension. Right Upper Extremity: Shoulder Flexion allows only up to 80 degrees actively with report of pain in shoulder and in posterior neck. Shoulder abduction allows only up to 80 degrees actively. Elbow flexion WFL. Wrist flexion WFL. Functional opening and closing of hand WFL. Left Upper Extremity: Shoulder Flexion WFL. Shoulder abduction WFL. Elbow flexion WFL. Wrist flexion WFL. Functional opening and closing of hand WFL. Right Lower Extremity: Hip flexion WFL. Hip abduction WFL. Knee flexion WFL. Ankle dorsiflexion WFL. Ankle plantarflexion WFL. Left Lower Extremity: Hip flexion WFL. Hip abduction WFL. Knee flexion WFL. Ankle dorsiflexion WFL. Ankle plantarflexion WFL. Strength: Cervical spine: Grossly 3-/5 Right Upper Extremity: Shoulder flexors 3-/5. Shoulder abductors 3-/5. Elbow flexors 3-/5. Elbow extensors 4/5. Human Resource Analyst strong. Left Upper Extremity: Shoulder flexors 4-/5. Shoulder abductors 4-/5. Elbow flexors 4-/5. Elbow extensors 4/5. Human Resource Analyst strong. Right Lower Extremity: Hip flexors 4/5. Hip abductors 4/5. Knee flexors 4/5. Knee extensors 4/5. Ankle dorsiflexors 4/5. Ankle plantarflexors 4/5. Left Lower Extremity: Hip flexors 4/5. Hip abductors 4/5. Knee flexors 4/5. Knee extensors 4/5. Ankle dorsiflexors 4/5. Ankle plantarflexors 4/5. Sensation: Intact as to pain and pressure on bilateral upper and lower extremities. Bed Mobility/Transfers: Supine to sit independent Sit to supine independent Sit to stand independent Stand to sit independent Bed to chair independent Chair to bed independent Gait: Able to tolerate up to 300 feet x 2 without an assistive device with full weight bearing independently. Stairs: Able to tolerate up-and-down three 4 inch steps and two 6 inch steps holding onto bilateral rails with step over step pattern independently. Balance: Static Sitting: Normal Dynamic Sitting: Normal Static Standing: Good Dynamic Standing: Fair Assessment: Joaquín has demonstrated significant improvement in functional mobility performance using a front wheeled walker. New onset shoulder pain on the right and posterior neck pain limit ability to perform transfer and ambulation task performance. Joaquín will continue to require skilled services in order to progress mobility level and address new pain complaint in shoulder and posterior neck via SNF placement. Patient continues to present with clinical signs and symptoms consistent with current/admitting diagnoses that have resulted to mobility limitations, gait instability, generalized weakness, and impairment of motor control as demonstrated by the following impairment level findings: 1. Decreased strength to BUE/LE major muscle groups 2. Impaired standing balance 3. Impaired activity tolerance 4. Limitation of joint range of motion in BUE/LE Impairments are continuing to contribute to the following functional limitations: 3. Inability to safely ambulate without assistive device 4. Increase completion time for mobility ADL performance 5. Increased fall risk Goals: Goals X1 week 1. Sit-Stand independent MET 2. Stand-Sit independent MET 3. Bed-Chair independent MET 4. Chair-Bed independent MET 5. Supervision gait on level surface without an assistive device for at least 300 feet without report of pain in your neck or R shoulder nor dyspnea MET 6. Supervision stair negotiation while holding onto bilateral rails for at least 10 steps without report of pain in your neck or R shoulder nor dyspnea MET 7. Supervision with home exercise program MET 8. Good static and dynamic standing balance/tolerance MET DISCHARGE RECOMMENDATIONS: Patient will benefit from home health PT services in order to progress mobility level using least restrictive assistive ambulatory device, assess home safety, identify additional equipment needs, and establish a functional maintenance program that will increase ability of patient to remain at home. TREATMENT CODE/TIME: PA Thank you for the opportunity to participate in the care of this patient. Krystin Serna PT, DPT, CLT [facility] [place], [place]
== END 2020-04-16 13:32 | disposition home health service (06) | DRG 552 ==
PROVIDERS: General Practice; Internal Medicine; Nurse Practitioner Family; Admitting Provider Internal Medicine; PCP Internal Medicine; Visit Provider Internal Medicine
DX: M48.02 Spinal stenosis, cervical region (principal); R53.1 Weakness; M75.31 Calcific tendinitis of right shoulder; N18.9 Chronic kidney disease, unspecified; I12.9 Hypertensive chronic kidney disease with stage 1 through stage 4 chronic kidney disease, or unspecified chronic kidney disease; N32.0 Bladder-neck obstruction; I25.5 Ischemic cardiomyopathy; R74.8 Abnormal levels of other serum enzymes; R33.9 Retention of urine, unspecified; I25.10 Atherosclerotic heart disease of native coronary artery without angina pectoris; E78.00 Pure hypercholesterolemia, unspecified; Z85.46 Personal history of malignant neoplasm of prostate; Z95.5 Presence of coronary angioplasty implant and graft
CPT/HCPCS: 20605; 36415; 80053; 84145; 85027; 85652; 97110; 97140; 97162; 97530; 97535; 99239; 99254; 99255; 99306; 99316; 72141; 73200; 82607; 82746; 85007; 85730; 86140; 99305; J1040; J1644; J3490

== ENCOUNTER 2020-04-23 16:23 | Outpatient (REF) | payer MEDICARE, OTHER, SELFPAY ==
[2020-04-23 20:19] LABS: BUN 28 mg/dL (7-18); CREATININE 1.3 mg/dL (0.70-1.30); Calcium 8.5 mg/dL (8.5-10.1); Chloride 105 mmol/L (98-107); Estimated GFR 53.25 (mL/min/1.73m2); Glucose 98 mg/dL (74-106); Magnesium 1.8 mg/dL (1.8-2.4); Potassium 5.1 mmol/L (3.5-5.1); Sodium 138 mmol/L (136-145)
== END 2020-04-23 16:24 | disposition home or self-care (01) ==
LOC: NCHCN 16:23
PROVIDERS: PCP Internal Medicine; Visit Provider Internal Medicine
DX: I10 Essential (primary) hypertension (principal); E83.42 Hypomagnesemia
CPT/HCPCS: 80048; 83735

== ENCOUNTER 2020-04-29 08:59 | Observation (INO) | payer MEDICARE, OTHER, SELFPAY ==
[2020-04-29] VITALS (29 sets, daily range): BP systolic 150–185; BP diastolic 83–97; PULSE 60–81; RESP 18–32; TEMP 36.3–36.7; O2SAT 88–95
--- NOTE | 2020-04-29 09:00 | RT.EKG_ITS ---
APPROVED REPORT Exam: Resting ECG Patient Location: E HR:75 bpm ECG Measurements Heart Rate 75 AXIS WV 228 P 21 QRSd 134 QRS -24 QT 435 T 141 QTc 486 Conclusion Sinus arrhythmia...V-rate 62- 93, variation>10% Prolonged WV interval...WV >220, V-rate 50- 90 IVCD, consider RBBB...QRSd>120mS, terminal axis(90,270) Probable anterior infarct, age indeterminate...Q >35mS, T neg, V2-V5
--- NOTE | 2020-04-29 09:00 | DI.RAD_ITS ---
EXAM: XR PORTABLE CHEST AP CLINICAL HISTORY: Shortness of breath TECHNIQUE: 2D digital imaging was performed. COMPARISON: CR,XR XR PORTABLE CHEST AP from 03/30/2020 CR,XR XR CHEST 2V PA LATERAL from 04/04/2020 FINDINGS: MEDIASTINUM: Normal. HEART: Normal. PULMONARY VASCULATURE: Normal. LUNGS: There is an infiltrate in the right lung base which may represent atelectasis or pneumonia. T he left lung is clear. PLEURAL SPACE: There is a small right pleural effusion. No left pleural effusion or pneumothorax. BONE:Within normal limits for the patient's age. OTHER FINDINGS:Normal. IMPRESSION: Small right pleural effusion with adjacent atelectasis or pneumonia. Please correlate clinically. DATA REPOSITORY: RADIATION DOSE DELIVERED:
--- NOTE | 2020-04-29 09:22 | W.ED.GENAD ---
Discharge Plan Disposition Patient Disposition: [facility] INPATIENT Condition: Stable Discharge Details Clinical Impression: Pleural effusion, right, CHF (congestive heart failure) Admit Date/Time: 04/29/20 12:21 Admit Provider: Mónica Moreno Attending Provider: Mónica Moreno Primary Care Provider: Taz Collins ED Provider: Taz Collins Medical Decision Making 79-year-old male presents to the ER with chief complaint of increasing shortness of breath for the last 2 days. He was recently admitted and discharged from the hospital on April 16. He had a stay where he was hyponatremic, diagnosed with renal failure, was intubated at that time. He states that he has increased shortness of breath with exertion, and lying down. He denies any productive cough, denies fever. He reports recent discontinuation of 40 mg Lasix daily. Does have mild 1+ pitting edema noted to his lower legs and feet, lungs are clear to auscultation bilaterally. He is alert and oriented x4 on initial exam he is speaking in full sentences. He is a DNR/DNI, palliative care patient, does have a past medical history of prostate cancer, hypertension, hypercholesterolemia, chronic kidney disease, coronary artery disease. At this time work-up ordered including CBC, CMP, BNP, EKG, chest x-ray, troponin, serial troponins. EKG was reviewed by Dr. Jose Miguel Remy MD ER attending, please see his official report there was no old EKG available for review. No significant change from previous EKG. CBC largely improved from previous results no leukocytosis white blood cell count of 10.22, hemoglobin of 10.8, hematocrit 34.5, CMP shows sodium of 139, potassium 4.4, BUN 30, creatinine 1.5 GFR is 45.14 alk phos is 297, initial troponin I is within normal limit less than 0.05, proBNP this time is 34,243, last BNP value was 31,000. Urinalysis is pending at this time. Chest x-ray has been taken pending radiologist results at this time. 40 mg furosemide IV push ordered at this time. Differential diagnosis includes but not limited to viral URI, pneumonia, PE, fluid overload, CHF exacerbation, coronary artery disease, EXAM: XR PORTABLE CHEST AP CLINICAL HISTORY: Shortness of breath TECHNIQUE: 2D digital imaging was performed. COMPARISON: CR,XR XR PORTABLE CHEST AP from 03/30/2020 CR,XR XR CHEST 2V PA LATERAL from 04/04/2020 FINDINGS: MEDIASTINUM: Normal. HEART: Normal. PULMONARY VASCULATURE: Normal. LUNGS: There is an infiltrate in the right lung base which may represent atelectasis or pneumonia. The left lung is clear. PLEURAL SPACE: There is a small right pleural effusion. No left pleural effusion or pneumothorax. BONE:Within normal limits for the patient's age. OTHER FINDINGS:Normal. IMPRESSION: Small right pleural effusion with adjacent atelectasis or pneumonia. Please correlate clinically. Patient reevaluation, patient was sitting on side of bed to use the urinal became more shortness of breath, small amount of diaphoresis noted. O2 sat dropped down to 89% and gradually came back up to about 90 to 91%. Did offer admission for right-sided pleural effusion. This time do not think it is pneumonia no fever, not tachycardic, no confusion, however this is a possibility. 1054: Hospitalist paged to discuss admission. 1105: Spoke with Dr. Moreno who is on for hospitalist team, discussed patient case in details with her, she requests waiting approximately 1 hour to get the Lasix to work to see if that improves shortness of breath for admission. 1211: Patient reevaluation, he states that he still pretty short of breath when using the urinal, during our discussion while talking he desats to 89%, does have some increased work of breathing noted. He has had a total of 500 cc of urine out status post 40 mg of Lasix IV. He is not normally on oxygen at home. Per RN report she did visualize O2 sat up to 88% with standing. 1224: Discussed patient with Dr. Moreno, who agrees to accept patient for admission and reccommends a procalcitonin. lab added on. HPI General Mode of arrival: wheelchair. Date/Time Provider Initiated Documentation: 04/29/20 09:07. Limitations to Documentation: no limitations. Information obtained by: patient. HPI Narrative: 79-year-old male presents to the ER with chief complaint of increasing shortness of breath for the last 2 days. He was recently admitted and discharged from the hospital on April 16. He had a stay where he was hyponatremic, diagnosed with renal failure, was intubated at that time. He states that he has increased shortness of breath with exertion, and lying down. He denies any productive cough, denies fever. He reports recent discontinuation of 40 mg Lasix daily. Does have mild 1+ pitting edema noted to his lower legs and feet, lungs are clear to auscultation bilaterally. He is alert and oriented x4 on initial exam he is speaking in full sentences. He is a DNR/DNI, palliative care patient, does have a past medical history of prostate cancer, hypertension, hypercholesterolemia, chronic kidney disease, coronary artery disease Related Data Home Medications Medication Instructions Recorded Confirmed nitroglycerin 0.4 mg SUBLINGUAL PRN PRN 12/31/12 04/29/20 acetaminophen [Tylenol Arthritis 1,300 mg PO Q6H PRN PRN #0 01/03/13 04/29/20 Pain] aspirin [Aspir-81] 81 mg PO DAILY 10/28/15 04/29/20 magnesium L-lactate 84 mg PO DAILY 03/24/20 04/29/20 allopurinol 100 mg PO DAILY #0 tab 04/16/20 04/29/20 metoprolol succinate 100 mg PO DAILY #0 tab 04/16/20 04/29/20 pantoprazole 40 mg PO DAILY@0730 #30 tab 04/16/20 04/29/20 thiamine mononitrate (vit B1) 100 mg PO DAILY #30 tab 04/16/20 04/29/20 [Vitamin B-1 (mononitrate)] Previous Rx's Medication Instructions Recorded acetaminophen [Tylenol Arthritis 1,300 mg PO Q6H PRN PRN #0 01/03/13 Pain] allopurinol 100 mg PO DAILY #0 tab 04/16/20 metoprolol succinate 100 mg PO DAILY #0 tab 04/16/20 pantoprazole 40 mg PO DAILY@0730 #30 tab 04/16/20 thiamine mononitrate (vit B1) 100 mg PO DAILY #30 tab 04/16/20 [Vitamin B-1 (mononitrate)] Allergies Allergy/AdvReac Type Severity Reaction Status Date / Time amlodipine AdvReac Intermediate Swelling/Ed Unverified 03/24/20 14:04 lottie enalapril maleate AdvReac Intermediate cough Unverified 03/24/20 14:04 [From Vasotec] enalaprilat dihydrate AdvReac Intermediate cough Unverified 03/24/20 14:04 [From Vasotec] General RUPESH: 2 Review of Systems Narrative: Constitutional: Negative for weight loss, alert and oriented, well groomed, normal body habitus, appears comfortable. HEENT: Denies trauma, headaches, blurry vision, nasal discharge, trouble swallowing. Chest: Denies chest pain, palpitations, irregular rhythm, hypertension. Respiratory: Denies cough, hemoptysis. Positive shortness of breath with exertion and lying down. GI: Denies abdominal pain, nausea, vomiting, diarrhea, constipation. : Denies dysuria, hematuria, flank pain, rectal bleeding. Neuro: Denies dizziness, blurry vision, weakness, syncope, headache or facial numbness. Extremities: Reports some bilateral lower extremity swelling. Hematologic: Denies easy bruising, intolerance to heat or cold, hair loss. [facility] Medical History Bladder neck contracture CAD (coronary artery disease) Chronic kidney disease DNI (do not intubate) DNR (do not resuscitate) Hypercholesterolemia Hypertension Ischemic cardiomyopathy Palliative care patient POLST (Physician Orders for Life-Sustaining Treatment) Prostate cancer Surgical History History of heart artery stent S/P prostatectomy Status post THR (total hip replacement) Social History Smoking/Tobacco Use Status: Former Tobacco Use Smoking risk assessment performed?: Yes Alcohol Intake: current Alcohol type: other Drug use: Never Substance use type: does not use Current gender identity: male Do you feel safe at home: Yes Do you feel safe in your relationship?: Yes Exam Narrative Exam Narrative: Constitutional: Alert and oriented x3. Appears stated age. Normal body habitus. Head: Normocephalic, no trauma. Eyes: Pupils PERRLA, Red reflex noted, EOM's intact. Eyelids symmetrical without lesions, discharge, or swelling. ENT: Bilateral TM's WNL, External ear normal to inspection, no mastoid TTP, swelling, or erythema, Nasal turbinates WNL, no nasal discharge. Normal dentition, Posterior pharynx WNL, no exudate. Chest: RRR, Normal S1, S2, distal pulses intact. Resp: Lungs clear to auscultation bilaterally, no wheezes, rales, or rhonchi auscultated. Abdominal: Soft, nondistended nontender to palpation all 4 quadrants. Musculoskeletal: Unable to assess gait, 5/5 strength to all four extremities. Mild 1+ pitting edema noted to his bilateral lower ankles and feet. Skin: No suspicious rashes or lesions. Capillary refill less than 2 sec. Neurologic: Cranial nerves II-XII intact. Alert and oriented x 3. DTR's intact. Hematologic/Lymphatic: No ecchymosis, no lymphadenopathy.
[2020-04-29 09:35] LABS: Abs Immature Grans 0.05 10^3/uL (0.0-0.06); Absolute Basophil Count 0.07 10^3/uL (0.0-0.2); Absolute Eosinophil Count 0.11 10^3/uL (0.0-0.7); Absolute Lymphocyte Count 1.61 10^3/uL (1.2-3.4); Absolute Monocyte Count 0.69 10^3/uL (0.1-0.8); Absolute Neutrophil Count 7.69 10^3/uL (1.2-6.7); Basophils % 0.7; Eosinophils % 1.1; HCT 34.5 % (40.0-50.0); HGB 10.8 g/dL (13.5-17.5); Immature Grans % 0.5; Lymphocytes % 15.8; MCH 32.4 pg (27.0-33.0); MCHC 31.3 % (32.0-36.0); MCV 103.6 fL (80-95); Monocytes % 6.8; Neutrophils % 75.1; Nucleated RBC 0 %; Platelet Count 396 10^3/uL (130-400); RBC 3.33 10^6/uL (4.36-5.78); RDW 15.1 % (11.8-14.1); RDW-SD 57.3 fL; WBC 10.22 10^3/uL (4.4-10.8)
--- NOTE | 2020-04-29 09:45 | NUR.NOTE ---
[place] [phone]
[2020-04-29 10:00] LABS: ALT 54 U/L (16-63); AST 31 U/L (15-37); Albumin 3.1 g/dL (3.4-5.0); Alkaline Phosphatase 297 U/L (46-116); Anion Gap 5.7 mmol/L (3-11); BUN 30 mg/dL (7-18); Bilirubin, Total 0.5 mg/dL (0.2-1.0); CO2 30.3 mmol/L (21.0-32.0); CREATININE 1.5 mg/dL (0.70-1.30); Calcium 8.7 mg/dL (8.5-10.1); Chloride 103 mmol/L (98-107); Estimated GFR 45.14 (mL/min/1.73m2); Glucose 100 mg/dL (74-106); Magnesium 1.9 mg/dL (1.8-2.4); NT-proBNP 34243 pg/mL (<300); Potassium 4.4 mmol/L (3.5-5.1); Sodium 139 mmol/L (136-145); Total Protein 7.2 g/dL (6.4-8.2); Troponin I < 0.05 ng/mL (<0.06)
[2020-04-29] MEDS: Furosemide 40 MG/4 ML VIAL IVP (10:39)
[2020-04-29 10:55] LABS: Bilirubin Negative (Negative); Blood Negative (Negative); Clarity Clear (Clear); Glucose Negative (Negative); Ketones Negative (Negative); Leukocyte Esterase Negative (Negative); Nitrite Negative (Negative); Specific Gravity 1.025 (1.005-1.025); Urobilinogen 0.2 EU/dL (Up TO 0.2)
[2020-04-29 11:03] LABS: Bacteria Rare HPF (Negative); C & S Indicated? No; Casts Negative LPF (Negative); Crystals Negative HPF (Negative); Epithelial Cells Rare HPF (Negative); Mucus Trace (Negative); RBC 0-2 HPF (0-2); WBC 0-2 HPF (0-5)
[2020-04-29 13:09] LABS: Troponin I < 0.05 ng/mL (<0.06)
[2020-04-29 13:11] LABS: COVID-19 PCR Negative (Negative); Influenza A PCR Negative (Negative); Influenza B PCR Negative (Negative); RSV PCR Negative (Negative)
[2020-04-29 13:36] LABS: Procalcitonin 0.1 ng/mL
[2020-04-29] MEDS: Enoxaparin 40 MG/0.4 ML SYR SC (14:20)
--- NOTE | 2020-04-29 14:57 | HPE_ITS ---
Date of service: 04/29/20 Time of Service: 14:57 Assessment and Plan Assessment and plan (1) Heart failure, chronic, with acute decompensation: Status: Acute Assessment and plan: given lasix in the ED with good effect. will continue lasix and beta beto states he was recently restarted on diuretics by pcp and has been compliant echo from Mar 25, 2020 Conclusion Normal left ventricular chamber size and wall thickness. Estimated ejection fraction is 50%. Unable to assess regional wall motion The right ventricle is normal in size Both atria are normal in size Arctic valve is not well visualized and appears sclerotic without stenosis or regurgitation Structurally normal mitral valve, mild mitral regurgitation Structurally normal tricuspid valve, trace regurgitation The pulmonic valve was not well visualized Mildly dilated ascending aorta (2) Bladder outlet obstruction: Status: Chronic Assessment and plan: no sign of retention, will monitor (3) Alcohol dependence: Status: Chronic Assessment and plan: no sign of withdrawal, will monitor CIWA (4) Chronic kidney disease: Status: Chronic (5) Discharge planning issues: Status: Acute Assessment and plan: plan to d/c home with home health tomorrow. discussed with DR Moreno History of Present Illness History of Present Illness Chief Complaint: shortness of breath Narrative: This is a 79 year old who presents to the ED with shortness of breath, worsening over past few days, unable to lie flat, reports he was recently started back up on his diuretics and has been taking as prescribed. states he was doing well and was discharged from home health services. he denies chest pain cough or fever. work up in the ED consistent with fluid overload. he was given IV lasix and began diuresing well but reportedly still had oxygen requirements so hospitalist services was asked to admit for diuresis and further monitoring. Review of Systems All systems reviewed & are unremarkable except as noted in HPI and below Constitutional Constitutional: Denies fever(s) Cardiovascular Cardiovascular: Reports dyspnea and Reports dyspnea on exertion Respiratory Respiratory: Denies chest congestion, Denies cough, Denies pain on inspiration, Reports dyspnea and Reports dyspnea on exertion [facility] Medical History Bladder neck contracture CAD (coronary artery disease) Chronic kidney disease DNI (do not intubate) DNR (do not resuscitate) Hypercholesterolemia Hypertension Ischemic cardiomyopathy Palliative care patient POLST (Physician Orders for Life-Sustaining Treatment) Prostate cancer Surgical History History of heart artery stent S/P prostatectomy Status post THR (total hip replacement) Social History Smoking/Tobacco Use Status: Former Tobacco Use Smoking risk assessment performed?: Yes Alcohol Intake: current Alcohol type: other Drug use: Never Substance use type: does not use Current gender identity: male Do you feel safe at home: Yes Do you feel safe in your relationship?: Yes Meds Home Medications and Allergies Allergies Allergy/AdvReac Type Severity Reaction Status Date / Time amlodipine AdvReac Intermediate Swelling/Ed Unverified 03/24/20 14:04 lottie enalapril maleate AdvReac Intermediate cough Unverified 03/24/20 14:04 [From Vasotec] enalaprilat dihydrate AdvReac Intermediate cough Unverified 03/24/20 14:04 [From Vasotec] Home Medications Medication Instructions Recorded Confirmed Type nitroglycerin 0.4 mg SUBLINGUAL PRN PRN 12/31/12 04/29/20 History acetaminophen [Tylenol Arthritis 1,300 mg PO Q6H PRN PRN #0 01/03/13 04/29/20 Rx Pain] aspirin [Aspir-81] 81 mg PO DAILY 10/28/15 04/29/20 History magnesium L-lactate 84 mg PO DAILY 03/24/20 04/29/20 History allopurinol 100 mg PO DAILY #0 tab 04/16/20 04/29/20 Rx metoprolol succinate 100 mg PO DAILY #0 tab 04/16/20 04/29/20 Rx pantoprazole 40 mg PO DAILY@0730 #30 tab 04/16/20 04/29/20 Rx thiamine mononitrate (vit B1) 100 mg PO DAILY #30 tab 04/16/20 04/29/20 Rx [Vitamin B-1 (mononitrate)] Exam Narrative Exam Narrative: patient is sitting at bedside, talking on the phone and eating lunch. his oxygen was weaned off on arrival to the med/surg unit. Const General: cooperative, comfortable and no acute distress Nutritional Appearance: average body habitus Orientation: alert, awake and oriented x3 HENMT Head: normal to inspection, normocephalic and atraumatic Mouth: oral mucosae normal Resp Effort & Inspection: normal respiratory effort Auscultation: diminished lung sounds bilaterally in the lower lung spencer Cardio Rate: regular rate Rhythm: regular rhythm GI Inspection: normal to inspection Palpation: soft Auscultation: normal bowel sounds Skin General skin exam: no rashes or lesions noted Neuro General: patient alert, patient awake and patient oriented x3 Extrem General: normal to inspection, full ROM and edema (trace) Laterality: bilateral Results Labs Result diagrams: 04/29/20 09:25 04/29/20 09:25 Labs: Laboratory Results - last 24 hr 04/29/20 04/29/20 04/29/20 09:15 09:25 09:25 WBC 10.22 RBC 3.33 L Hgb 10.8 L Hct 34.5 L MCV 103.6 H MCH 32.4 MCHC 31.3 L RDW 15.1 H Plt Count 396 MPV 9.0 Immature Gran % 0.5 Neutrophils % 75.1 Lymphocytes % 15.8 Monocytes % 6.8 Eosinophils % 1.1 Basophils % 0.7 Nucleated RBC % 0 Absolute Neutrophils 7.69 H Absolute Lymphocytes 1.61 Absolute Monocytes 0.69 Absolute Eosinophils 0.11 Absolute Basophils 0.07 Sodium 139 Potassium 4.4 Chloride 103 Carbon Dioxide 30.3 Anion Gap 5.7 BUN 30 H Creatinine 1.5 H Estimated GFR/1.73 m2 45.14 Glucose 100 Calcium 8.7 Magnesium 1.9 Total Bilirubin 0.5 AST 31 ALT 54 Alkaline Phosphatase 297 H Troponin I < 0.05 NT-Pro-B Natriuret Pep 14580 H Total Protein 7.2 Albumin 3.1 L Procalcitonin 0.1 Urine Color Urine Clarity Urine pH Ur Specific [place] Urine Protein Urine Ketones Urine Blood Urine Nitrite Urine Bilirubin Urine Urobilinogen Ur Leukocyte Esterase Urine RBC Urine WBC Ur Epithelial Cells Urine Crystals Urine Bacteria Urine Casts Urine Mucus Ur Culture Indicated? Urine Glucose COVID-19 Source SARS-CoV-2 (PCR) Influenza Type A (PCR) Influenza Type B (PCR) RSV (PCR) 04/29/20 04/29/20 04/29/20 10:45 12:18 12:25 WBC RBC Hgb Hct MCV MCH MCHC RDW Plt Count MPV Immature Gran % Neutrophils % Lymphocytes % Monocytes % Eosinophils % Basophils % Nucleated RBC % Absolute Neutrophils Absolute Lymphocytes Absolute Monocytes Absolute Eosinophils Absolute Basophils Sodium Potassium Chloride Carbon Dioxide Anion Gap BUN Creatinine Estimated GFR/1.73 m2 Glucose Calcium Magnesium Total Bilirubin AST ALT Alkaline Phosphatase Troponin I < 0.05 NT-Pro-B Natriuret Pep Total Protein Albumin Procalcitonin Urine Color Yellow Urine Clarity Clear Urine pH 7.0 Ur Specific [place] 1.025 Urine Protein 30 H Urine Ketones Negative Urine Blood Negative Urine Nitrite Negative Urine Bilirubin Negative Urine Urobilinogen 0.2 Ur Leukocyte Esterase Negative Urine RBC 0-2 Urine WBC 0-2 Ur Epithelial Cells Rare Urine Crystals Negative Urine Bacteria Rare Urine Casts Negative Urine Mucus Trace Ur Culture Indicated? No Urine Glucose Negative COVID-19 Source Nasopharyx SARS-CoV-2 (PCR) Negative Influenza Type A (PCR) Negative Influenza Type B (PCR) Negative RSV (PCR) Negative Last Vital Signs Temp 36.3 C L 04/29/20 13:57 Pulse 66 04/29/20 13:57 Resp 18 04/29/20 13:57 BP 178/97 H 04/29/20 13:57 Pulse Ox 93 04/29/20 13:57 COVID-19 Screening Have you, or household traveled for leisure in last 14 days?: No Had IN PERSON contact w/suspected or confirmed C-19 person: No
[2020-04-30 02:15] VITALS: O2SAT 93
[2020-04-30 07:36] VITALS: BP 173/82; PULSE 76; RESP 19; TEMP 36.7; O2SAT 90
[2020-04-30] MEDS: Aspirin E.C. 81 MG TABEC PO (07:40)
[2020-04-30] MEDS: Allopurinol 100 MG TAB PO (07:40)
[2020-04-30] MEDS: Acetaminophen 325 MG TAB 650 MG PO (07:40)
[2020-04-30] MEDS: Metoprolol CR 100 MG TABCR PO (07:41)
[2020-04-30] MEDS: Magnesium Lactate-SR 84 MG TABCR PO (07:42)
[2020-04-30] MEDS: Thiamine 100 MG TAB PO (07:42)
[2020-04-30] MEDS: Furosemide 20 MG TAB PO (07:43)
[2020-04-30] MEDS: Pantoprazole 40 MG TABCR PO (07:44)
--- NOTE | 2020-04-30 08:35 | PT.INIE ---
Date of service: 04/30/20 Time of Service: 08:37 PT Notes Visit Reasons: Congestive heart failure Physical Therapy Inpatient Initial Evaluation Date: 04/30/2020 Referring Doctor: Jayshree Amaya NP PT Orders: PT CONSULT: Eval/treat. Precautions: Fall. Standard. Activity as tolerated. Patient Profile/Admitting Diagnosis: Joaquín is a 79-year-old male history significant for bladder outlet obstruction, EtOH dependence, and chronic kidney disease who presented to the ED on 04/29/2020 due to increasing shortness of breath that started 2 days ago prior to admission. He is diagnosed with congestive heart failure with acute decompensation. PMHX: Medical History Bladder neck contracture CAD (coronary artery disease) Chronic kidney disease DNI (do not intubate) DNR (do not resuscitate) Hypercholesterolemia Hypertension Ischemic cardiomyopathy Palliative care patient POLST (Physician Orders for Life-Sustaining Treatment) Prostate cancer Surgical History History of heart artery stent S/P prostatectomy Status post THR (total hip replacement) Social History/Home Situation: Lives alone in a private home with 3 steps to enter with rails on both sides. Discharged from this hospital on 04/16/2020 at level using no assistive devices. Equipment Owned/DME: Front-wheeled walker Subjective: Agreeable to PT consult. Reports mild shortness of breath midway through a 300 feet walk using a front wheeled walker. Denies dizziness, chest pain, and lightheadedness throughout. Did indicate that his right hip is mildly painful as he not walked far since yesterday. Objective: General Observation: Seated on bedside chair. IV access in the right UE. Mental Status: Alert and oriented x4 Pain: 1-2/10 in R hip ROM: Right Upper Extremity: Shoulder Flexion WFL. Shoulder abduction WFL. Elbow flexion WFL. Wrist flexion WFL. Functional opening and closing of hand WFL. Left Upper Extremity: Shoulder Flexion WFL. Shoulder abduction WFL. Elbow flexion WFL. Wrist flexion WFL. Functional opening and closing of hand WFL. Right Lower Extremity: Hip flexion WFL. Hip abduction WFL. Knee flexion WFL. Ankle dorsiflexion WFL. Ankle plantarflexion WFL. Left Lower Extremity: Hip flexion WFL. Hip abduction WFL. Knee flexion WFL. Ankle dorsiflexion WFL. Ankle plantarflexion WFL. Strength: Right Upper Extremity: Shoulder flexors 4/5. Shoulder abductors 4/5. Elbow flexors 4/5. Elbow extensors 4/5. [employer]inator strong. Left Upper Extremity: Shoulder flexors 4/5. Shoulder abductors 4/5. Elbow flexors 4/5. Elbow extensors 4/5. Fitness And Wellness Coordinator strong. Right Lower Extremity: Hip flexors 5/5. Hip abductors 5/5. Knee flexors 5/5. Knee extensors 5/5. Ankle dorsiflexors 5/5. Ankle plantarflexors 5/5. Left Lower Extremity:Hip flexors 5/5. Hip abductors 5/5. Knee flexors 5/5. Knee extensors 5/5. Ankle dorsiflexors 5/5. Ankle plantarflexors 5/5. Sensation: Intact as to pain and pressure on bilateral upper and lower extremities. Bed Mobility/Transfers: Supine to sit independent Sit to supine independent Sit to stand independent Stand to sit independent Bed to chair supervision Chair to bed supervision Gait: Guided patient ambulation of 300 feet using front wheeled walker with complaint of minimal to moderate shortness of breath midway through the walk. No LOB. Oxygen saturation down to 88% on room air immediately after the walk with BP at 179/94 mmHg. After resting 5 minutes blood pressure at 177/91 mmHg and oxygen saturation at 93% on room air. Balance: Static Sitting: Normal Dynamic Sitting: Normal Static Standing: Good Dynamic Standing: Fair Special Tests: Mobility Limitations Standardized Measure [facility] 6 clicks Basic Mobility Inpatient Short Form: Raw Score: 23 CMS Score: 11% deficit % deficit Informed Consent/Education: Patient instructed in purpose of PT consult and plan of care. 4-stage Balance Test: Only able to maintain at 10 seconds with feet together but is unable to do so with semitandem, full tandem, and one-legged stance indicating a risk ofr falls. Assessment: Joaquín demonstrates the need for the use of an assistive device due to decreased activity tolerance, balance impairment, and increased fall risk. Will require use of FWW to reduce fall risk at home. May benefit from OP balance retraining if transportation is available. Patient presents with clinical signs and symptoms consistent with current/admitting diagnoses that have resulted to mobility limitations, gait instability, generalized weakness, and impairment of motor control as demonstrated by the following impairment level findings: 1. Impaired standing balance 2. Impaired activity tolerance Impairments contributes to the following functional limitations: 1. Inability to safely ambulate without assistive device 2. Increase completion time for mobility ADL performance 3. Increased fall risk Goals: Goals X1-2 more sessions 1. Bed-Chair independent 2. Chair-Bed independent 3. Independent gait on level surface with FWW for at least 300 feet without report of pain in your neck or R shoulder nor dyspnea 4. Independent stair negotiation while holding onto bilateral rails for at least 5 steps without report of pain in your neck or R shoulder nor dyspnea 35 DISCHARGE RECOMMENDATIONS: OP PT services for balance skills progression to reduce fall risk. Will need transportation assist to OP clinic. TREATMENT CODE/TIME: 26100 x 25 minutes, 73838 x 15 minutes beginning at 8:35 AM. Thank you for the opportunity to participate in the care of this patient. Krystin Serna PT, DPT, CLT [facility] [place], [place]
[2020-04-30 08:53] LABS: Anion Gap 8.5 mmol/L (3-11); BUN 30 mg/dL (7-18); CO2 27.5 mmol/L (21.0-32.0); CREATININE 1.4 mg/dL (0.70-1.30); Calcium 8.7 mg/dL (8.5-10.1); Chloride 102 mmol/L (98-107); Estimated GFR 48.89 (mL/min/1.73m2); Glucose 104 mg/dL (74-106); Magnesium 1.8 mg/dL (1.8-2.4); Potassium 4.6 mmol/L (3.5-5.1); Sodium 138 mmol/L (136-145)
--- NOTE | 2020-04-30 10:25 | PDOC.CMIN ---
- If Service Date Differs Date of service: 04/30/20 Time of Service: 10:48 Care Management Initial Assess REASON FOR HOSPITALIZATION:: CHF PAST MEDICAL HISTORY/PAST SURGICAL HISTORY:: Medical History (Updated 03/24/20 @ 16:56 by Mónica Moreno MD). Bladder neck contracture. CAD (coronary artery disease). Chronic kidney disease. Hypercholesterolemia. Hypertension. Ischemic cardiomyopathy. Prostate cancer. Surgical History . History of heart artery stent. S/P prostatectomy. Status post THR (total hip replacement) PREVIOUS FUNCTIONAL STATUS/SOCIAL/FAMILY SUPPORTS:: Joaquín lives alone in a studio apartment in [place], [place] He has a son Aiden who lives in [place], [place]. and is supportive. In addition, Joaquín ahs many friends in the area. He is independent at baseline and continues to drive. CURRENT FUNCTIONAL STATUS:: Joaquín was sitting up in his chair when CM met with him. He was fully dressed and prepared for discharge. CM provided pill container for medications as LEANNA Ritchie reported concerns that Joaquín may have not been taking his medications as prescribed as home health was no longer monitoring him. Erma reports she will re-order VNA/RN for medication management; CM reviewed this with Joaquín who was agreeable. ADVANCE DIRECTIVES:: COLST form on file. Has patient been provided with info about the portal/API?: No Did the patient sign up for the portal?: No CODE STATUS:: DNR/DNI INSURANCE COVERAGE / FINANCIAL ISSUES:: Medicare. CURRENT HOME/COMMUNITY SERVICES/EQUIPMENT:: Home Health ordered upon last discharge, 04/08/20; appears Joaquín dismissed services. PRIMARY CARE PHYSICIAN:: Taz Collins MD. POTENTIAL DISCHARGE NEEDS:: New orders for VNA RN, follow up appointments. PATIENT/FAMILY EDUCATION NEEDS:: Review discharge instructions, discuss Ask Me Three. ANTICIPATED BARRIERS TO DISCHARGE:: None identified at this time. TRANSPORTATION:: Via private vehicle with his son. PLAN:: Joaquín will return home when ready per . He will have new orders for VNA RN: KAIT notified Ryan of [facility]. Dulce Maria called later in the day and reported Joaquín had not permitted services previously, and they would not open services until hearing back from Joaquín directly that he wanted the services. Joaquín will transport via private vehicle with his son, follow up with his PCP and plan of care as prescribed.
--- NOTE | 2020-04-30 10:36 | DSE_ITS ---
Date of service: 04/30/20 Time of Service: 10:36 DS: Diagnosis Discharge Diagnosis (1) Heart failure, chronic, with acute decompensation: Status: Acute (2) Bladder outlet obstruction: Status: Chronic (3) Alcohol dependence: Status: Chronic (4) Chronic kidney disease: Status: Chronic Discharge Plan Disposition Patient Disposition: HOME W/HOME HEALTH SERVICE Condition: Stable Discharge Details Reason For Visit: CHF Admit Date/Time: 04/29/20 12:21 Admit Provider: Mónica Moreno Attending Provider: Mónica Moreno Primary Care Provider: Taz Collins Hospital Course Hospital Course: This is a 79 year old who presented to the ED with shortness of breath, worsening over past few days, unable to lie flat. He had been hospitalized recently after being found down at home, complicated hospital course with rhabdo, alcohol withdrawal, kidney injury, right shoulder pain, urinary retention. He was stabilized and sent home with home health services. His diuretic was held on discharge and pcp started it back up and he reports he was doing well and was discharged from home health services and then this happened. he denies chest pain cough or fever. work up in the ED consistent with fluid overload. he was given IV lasix and began diuresing well, he was referred to observation, was weaned off oxygen and is now stable for discharge to home. We will resume home health services for medication oversight and routine disease monitoring. echo from Mar 25, 2020 Conclusion Normal left ventricular chamber size and wall thickness. Estimated ejection fraction is 50%. Unable to assess regional wall motion The right ventricle is normal in size Both atria are normal in size Arctic valve is not well visualized and appears sclerotic without stenosis or regurgitation Structurally normal mitral valve, mild mitral regurgitation Structurally normal tricuspid valve, trace regurgitation The pulmonic valve was not well visualized Mildly dilated ascending aorta discharge discussed with DR Moreno Home Meds and New Rx's Prescriptions: New furosemide 20 mg Tablet 40 mg PO DAILY Qty: 0 RF: 0 Continued nitroglycerin 0.4 MG tablet, sublingual 0.4 mg Sublingual PRN PRNRF: 0 acetaminophen [Tylenol Arthritis Pain] 650 MG tablet extended release 1,300 mg PO Q6H PRN PRNQty: 0 RF: 0 aspirin [Aspir-81] 81 MG tablet,delayed release (DR/EC) 81 mg PO DAILY RF: 0 magnesium L-lactate 84 mg Tablet Extended Release 84 mg PO DAILY RF: 0 pantoprazole 40 mg Tablet,Delayed Release (Dr/Ec) 40 mg PO DAILY@0730 Qty: 30 RF: 0 thiamine mononitrate (vit B1) [Vitamin B-1 (mononitrate)] 100 mg Tablet 100 mg PO DAILY Qty: 30 RF: 0 allopurinol 100 MG tablet 100 mg PO DAILY Qty: 0 RF: 0 metoprolol succinate 25 MG tablet extended release 24 hr 100 mg PO DAILY Qty: 0 RF: 0 Discharge Instructions Instructions: Heart Failure (DC) Additional Instructions: resume your previous dose of furosemide (lasix) at 40 mg daily. weigh yourself 2 times weekly and report a 5 pound weight gain, swelling or increased shortness of breath to you doctor. Stand Alone Forms: Nursing Discharge Form Referrals: Taz Collins MD [Primary Care Provider] - 05/08/20 11:20 am (arrive at 1105) Activity:: Activity as Tolerated Equipment/Supplies:: No Equipment Needed Diet:: Low Sodium Discharge Orders Discharge Orders: Discharge Order (Routine); Ordered 04/30/20 Ordered By: Jayshree Amaya DS: Summary Time Spent with Patient providing and/or coordinating discharge services: Greater than 30 minutes Status at Discharge Functional status at discharge: independent ambulation Overall status at discharge: patient is progressing back to baseline Mental Status: mental status grossly normal Speech and Movement: speech and movement normal Mood: congruent mood Affect: normal affect Exam Const General: cooperative, comfortable and no acute distress Nutritional Appearance: average body habitus Orientation: alert, awake and oriented x3 HENMT Head: normal to inspection, normocephalic and atraumatic Mouth: oral mucosae normal Resp Effort & Inspection: normal respiratory effort Auscultation: diminished lung sounds bilaterally in the lower lung spencer Cardio Rate: regular rate Rhythm: regular rhythm GI Inspection: normal to inspection Palpation: soft Auscultation: normal bowel sounds Skin General skin exam: no rashes or lesions noted Neuro General: patient alert, patient awake and patient oriented x3 Extrem General: normal to inspection, full ROM and edema (trace) Laterality: bilateral Psych Mental Status: mental status grossly normal Speech and Movement: speech and movement normal Mood: congruent mood Affect: normal affect DS: Data Vitals/I&O Vitals and I&O: Vital Signs Temperature 36.7 C 04/30/20 07:36 Temperature Source Tympanic 04/30/20 07:36 Pulse 76 04/30/20 07:36 Pulse Rhythm Regular 04/30/20 08:32 Pulse 67 04/29/20 12:20 Respiratory Rate 19 04/30/20 07:36 Respiratory Effort Non-Labored 04/30/20 08:32 Respiratory Depth Normal 04/30/20 08:32 Respiratory Pattern Normal 04/30/20 08:32 Blood Pressure 173/82 H 04/30/20 07:36 Blood Pressure Mean 116 04/29/20 12:01 Blood Pressure Position Sitting 04/29/20 09:32 Pulse Oximetry 90 L 04/30/20 07:36 Oxygen Delivery Method Room Air 04/30/20 07:36 Oxygen Flow Rate 0 04/30/20 07:36 Pain Level 0 04/30/20 07:40 Intake & Output 04/29/20 04/29/20 04/30/20 11:59 23:59 11:59 Intake Total 540 / 540 Output Total 500 / 1600 1100 / 1600 Balance -500 / -1600 -1100 / -1600 540 / 540 Weight 82.024 kg 83.5 kg Intake: Oral 540 / 540 Output: Urine 500 / 1600 1100 / 1600 Other: Urine Color Yellow Yellow Urine Appearance Cloudy Cloudy Urine Odor Normal Normal Stool Size Small Stool Characteristics Soft Voiding Methods Toilet Toilet Data Completed and Pending Labs on day of discharge: Labs from last 24 hours 04/30/20 04/29/20 04/29/20 08:33 12:25 12:18 Sodium 138 Potassium 4.6 Chloride 102 Carbon Dioxide 27.5 Anion Gap 8.5 BUN 30 H Creatinine 1.4 H Estimated GFR/1.73 m2 48.89 Glucose 104 Calcium 8.7 Magnesium 1.8 Troponin I < 0.05 Procalcitonin Urine Color Urine Clarity Urine pH Ur Specific [place] Urine Protein Urine Ketones Urine Blood Urine Nitrite Urine Bilirubin Urine Urobilinogen Ur Leukocyte Esterase Urine RBC Urine WBC Ur Epithelial Cells Urine Crystals Urine Bacteria Urine Casts Urine Mucus Ur Culture Indicated? Urine Glucose COVID-19 Source Nasopharyx SARS-CoV-2 (PCR) Negative Influenza Type A (PCR) Negative Influenza Type B (PCR) Negative RSV (PCR) Negative 04/29/20 04/29/20 10:45 09:15 Sodium Potassium Chloride Carbon Dioxide Anion Gap BUN Creatinine Estimated GFR/1.73 m2 Glucose Calcium Magnesium Troponin I Procalcitonin 0.1 Urine Color Yellow Urine Clarity Clear Urine pH 7.0 Ur Specific [place] 1.025 Urine Protein 30 H Urine Ketones Negative Urine Blood Negative Urine Nitrite Negative Urine Bilirubin Negative Urine Urobilinogen 0.2 Ur Leukocyte Esterase Negative Urine RBC 0-2 Urine WBC 0-2 Ur Epithelial Cells Rare Urine Crystals Negative Urine Bacteria Rare Urine Casts Negative Urine Mucus Trace Ur Culture Indicated? No Urine Glucose Negative COVID-19 Source SARS-CoV-2 (PCR) Influenza Type A (PCR) Influenza Type B (PCR) RSV (PCR) [facility] Medical History Bladder neck contracture CAD (coronary artery disease) Chronic kidney disease DNI (do not intubate) DNR (do not resuscitate) Hypercholesterolemia Hypertension Ischemic cardiomyopathy Palliative care patient POLST (Physician Orders for Life-Sustaining Treatment) Prostate cancer Surgical History History of heart artery stent S/P prostatectomy Status post THR (total hip replacement) Social History Smoking/Tobacco Use Status: Former Tobacco Use Smoking risk assessment performed?: Yes Alcohol Intake: current Alcohol type: other Drug use: Never Substance use type: does not use Current gender identity: male Do you feel safe at home: Yes Do you feel safe in your relationship?: Yes
--- NOTE | 2020-04-30 10:45 | PDOC.HHF2F_ITS ---
Home Health Certification Home Health Certification: 1. Encounter Date and Reason I certify that PETEY SMITH was seen by Jayshree Amaya on 04/30/20 and that I had a [id number] encounter with this patient that meets the physician face to face encounter requirements. 2. Clinical Findings Supporting Skilled Need and Homebound Status I certify that home health services are medically necessary, include either intermittent senior care and/or physical/speech therapy, and that this patient is homebound in that absences from the home require considerable and taxing effort and are infrequent or of short duration, or are attributable to the need to receive medical care. [X] (a) Attached documentation from encounter provides clinical findings supporting skilled need and homebound status (including what assistance patient requires to leave the home). The encounter with the patient was in whole, or in part, for the following medical condition, which is the primary reason for home health care: CHF Nursing Home:routine nursing evaluation and medication oversight. Homebound: patient unable to safely leave the house unattended d/t activity intolerance, fatigue and shortness of breath 3. Certification and Authentication I certify that I composed the above information based on my clinical judgement relating to this patient's medical condition and, if applicable, clinical findings communicated to me by the NPP or inpatient physician who performed the Home Health Referral. All further orders will be obtained through (Community Based Physician - PCP)
--- NOTE | 2020-05-01 14:46 | INDS_ITS ---
Date of service: 05/01/20 Time of Service: 14:47 PT Notes Visit Reasons: Congestive heart failure Physical Therapy Inpatient Discharge Summary Date: 04/30/2020 Dates of service: 04/30/2020 only This is a clinical summary of care provided on the duration of dates listed above. No charge was made in the completion of this documentation. Referring Doctor: Jayshree Amaya NP PT Orders: PT CONSULT: Eval/treat. Precautions: Fall. Standard. Activity as tolerated. Patient Profile/Admitting Diagnosis: Joaquín is a 79-year-old male history significant for bladder outlet obstruction, EtOH dependence, and chronic kidney disease who presented to the ED on 04/29/2020 due to increasing shortness of breath that started 2 days ago prior to admission. He is diagnosed with congestive heart failure with acute decompensation. PMHX: Medical History Bladder neck contracture CAD (coronary artery disease) Chronic kidney disease DNI (do not intubate) DNR (do not resuscitate) Hypercholesterolemia Hypertension Ischemic cardiomyopathy Palliative care patient POLST (Physician Orders for Life-Sustaining Treatment) Prostate cancer Surgical History History of heart artery stent S/P prostatectomy Status post THR (total hip replacement) Social History/Home Situation: Lives alone in a private home with 3 steps to enter with rails on both sides. Discharged from this hospital on 04/16/2020 at level using no assistive devices. Equipment Owned/DME: Front-wheeled walker Subjective: NT. See most recent [employer] notes. Objective: General Observation: NT. See most recent [employer] notes. Mental Status: NT. See most recent [employer] notes. Pain: NT. See most recent [employer] notes. ROM: Right Upper Extremity: Shoulder Flexion WFL. Shoulder abduction WFL. Elbow flexion WFL. Wrist flexion WFL. Functional opening and closing of hand WFL. Left Upper Extremity: Shoulder Flexion WFL. Shoulder abduction WFL. Elbow flexion WFL. Wrist flexion WFL. Functional opening and closing of hand WFL. Right Lower Extremity: Hip flexion WFL. Hip abduction WFL. Knee flexion WFL. Ankle dorsiflexion WFL. Ankle plantarflexion WFL. Left Lower Extremity: Hip flexion WFL. Hip abduction WFL. Knee flexion WFL. Ankle dorsiflexion WFL. Ankle plantarflexion WFL. Strength: Right Upper Extremity: Shoulder flexors 4/5. Shoulder abductors 4/5. Elbow flexors 4/5. Elbow extensors 4/5. [employer] strong. Left Upper Extremity: Shoulder flexors 4/5. Shoulder abductors 4/5. Elbow flexors 4/5. Elbow extensors 4/5. [employer]er strong. Right Lower Extremity: Hip flexors 5/5. Hip abductors 5/5. Knee flexors 5/5. Kn ee extensors 5/5. Ankle dorsiflexors 5/5. Ankle plantarflexors 5/5. Left Lower Extremity:Hip flexors 5/5. Hip abductors 5/5. Knee flexors 5/5. Knee extensors 5/5. Ankle dorsiflexors 5/5. Ankle plantarflexors 5/5. Sensation: Intact as to pain and pressure on bilateral upper and lower extremities. Bed Mobility/Transfers: Supine to sit independent Sit to supine independent Sit to stand independent Stand to sit independent Bed to chair supervision Chair to bed supervision Gait: Guided patient ambulation of 300 feet using front wheeled walker with complaint of minimal to moderate shortness of breath midway through the walk, SBA. No LOB. Oxygen saturation down to 88% on room air immediately after the walk with BP at 179/94 mmHg. After resting 5 minutes blood pressure at 177/91 mmHg and oxygen saturation at 93% on room air. Balance: Static Sitting: Normal Dynamic Sitting: Normal Static Standing: Good Dynamic Standing: Fair 4-stage Balance Test: Only able to maintain 10 seconds with feet together but is unable to do so with semi-tandem, full tandem, and one-legged stance indicating a risk ofr falls. Assessment: Joaquín demonstrates the need for the use of an assistive device due to decreased activity tolerance, balance impairment, and increased fall risk. Will require use of FWW to reduce fall risk at home. May benefit from OP balance retraining if transportation is available. Patient presents with clinical signs and symptoms consistent with current/admitting diagnoses that have resulted to mobility limitations, gait instability, generalized weakness, and impairment of motor control as demonstrated by the following impairment level findings: 1. Impaired standing balance 2. Impaired activity tolerance Impairments contributes to the following functional limitations: 1. Inability to safely ambulate without assistive device 2. Increase completion time for mobility ADL performance 3. Increased fall risk Goals: Goals X1-2 more sessions 1. Bed-Chair independent NOT MET 2. Chair-Bed independent NOT MET 3. Independent gait on level surface with FWW for at least 300 feet without report of pain in your neck or R shoulder nor dyspnea NOT MET 4. Independent stair negotiation while holding onto bilateral rails for at least 5 steps without report of pain in your neck or R shoulder nor dyspnea NOT MET DISCHARGE RECOMMENDATIONS: OP PT services for balance skills progression to reduce fall risk. Will need transportation assist to OP clinic. TREATMENT CODE/TIME: CO Thank you for the opportunity to participate in the care of this patient. Krsytin Serna PT, DPT, CLT [facility] [place], [place]
--- NOTE | 2020-05-01 14:52 | CMDISCH_ITS ---
LACE Index Scoring Tool - Questions: Length of Stay (in days): 2 Acuity (Admit via E.D.?): Yes Comorbidities: Any Tumor, Liver or Renal Disease E.D. Visits: 2 - Answers: Total Score: 12 Risk of Readmission: High Risk Care Management Discharge Reason for Hospitalization: CHF Discharge Plan: Joaquín will return home when ready per MD. He will have new orders for VNA RN: KAIT notified Ryan of [facility]. Dulce Maria called later in the day and reported Joaquín had not permitted services previously, and they would not open services until hearing back from Joaquín directly that he wanted the services. Joaquín will transport via private vehicle with his son, follow up with his PCP and plan of care as prescribed. Patient/Family Education Needs: Review discharge instructions, discuss Ask Me Three. Services Needed at Discharge: Home Health Care Services (Ryan from [facility] reports Joaquín declined new services. )
== END 2020-04-30 11:03 | disposition home health service (06) ==
LOC: ER 12:37 → MS 13:52
PROVIDERS: Admitting Provider Internal Medicine; Emergency Provider Registered Nurse Emergency; PCP Internal Medicine; Visit Provider Internal Medicine
DX: I13.0 Hypertensive heart and chronic kidney disease with heart failure and stage 1 through stage 4 chronic kidney disease, or unspecified chronic kidney disease (principal); I50.9 Heart failure, unspecified; I25.10 Atherosclerotic heart disease of native coronary artery without angina pectoris; N18.9 Chronic kidney disease, unspecified; Z66 Do not resuscitate; Z85.46 Personal history of malignant neoplasm of prostate; N32.0 Bladder-neck obstruction; F10.20 Alcohol dependence, uncomplicated
CPT/HCPCS: 36415; 80048; 80053; 84145; 93005; 96374; 97162; 97530; 99217; 99220; 99285; J1650; 71045; 81003; 81015; 83735; 83880; 84484; 85025; 93010; G0378; J1940

== ENCOUNTER 2020-05-05 15:08 | Inpatient (IN) | payer MEDICARE, OTHER, SELFPAY ==
--- NOTE | 2020-05-05 15:15 | RT.EKG_ITS ---
APPROVED REPORT Exam: Resting ECG Patient Location: E HR:57 bpm ECG Measurements Heart Rate 57 AXIS MA 240 P 41 QRSd 138 QRS -30 QT 467 T 2 QTc 431 Conclusion Sinus bradycardia. Multiple premature complexes Prolonged MA interval.. IVCD, consider RBBB.. Similar to previous
[2020-05-05 15:26] VITALS: BP 162/98; PULSE 65; RESP 22; TEMP 36.7; O2SAT 92
--- NOTE | 2020-05-05 15:30 | DI.RAD_ITS ---
EXAM: XR CHEST 2V PA LATERAL CLINICAL HISTORY: sob, hx chf TECHNIQUE: 2D digital imaging was performed. COMPARISON: CR XR PORTABLE CHEST AP from 04/29/2020 FINDINGS: MEDIASTINUM: Normal. HEART: Cardiomegaly. PULMONARY VASCULATURE: Normal. LUNGS: Bilateral airspace opacities. PLEURAL SPACE: Right pleural effusion which has shown some increase in size compared to 04/29/2020. No definite left pleural effusion. No pneumothorax. BONE:Within normal limits for the patient's age. OTHER FINDINGS:Normal. IMPRESSION: Cardiomegaly, airspace opacities and right pleural effusion. Congestive heart failure cannot be enti rely excluded. Pneumonia should also be considered. Please correlate clinically. DATA REPOSITORY: RADIATION DOSE DELIVERED:
--- NOTE | 2020-05-05 15:39 | W.ED.GENAD ---
Discharge Plan Disposition Patient Disposition: [facility] INPATIENT Condition: Stable Discharge Details Clinical Impression: Heart failure, chronic, with acute decompensation Admit Date/Time: 05/05/20 18:15 Admit Provider: Mónica Moreno Attending Provider: Mónica Moreno Primary Care Provider: Taz Collins ED Provider: Eud Hutton Medical Decision Making 79-year-old male presents from home after discharge on April 30 exacerbation of CHF. Complains of dizziness and shortness of breath with exertion. He arrives to ER with blood pressure 162/98, pulse of 65, temp 36.7, O2 sat 92%. His exam does reveal rales at the bases. I am concerned for persistent CHF. Patient placed in a manager insurance, IV access established, referred for laboratories and EKG. Labs reveal white count 10, hematocrit 37, platelets 383. Sodium 138, potassium 4.7, chloride 102, bicarb 28, BUN 38, creatinine 1.5. Troponin 0.05. Over weeks to months time his BNP has continued to rise and today is greater than 35,000. Patient given 40 mg of IV Lasix, with resultant urine output Chest x-ray with right pleural effusion. With the exertion has standing to transition to bedside commode, the patient became diaphoretic and hypoxic with room air sat in the low 80s. He was placed on oxygen and with supplemental oxygen and rest she is improved. No evidence of acute ischemia. He will require more aggressive diuresis. Lab Data Lab results reviewed: Yes I reviewed the patient's lab results. Labs: Laboratory Results - last 24 hr 05/05/20 05/05/20 16:00 16:00 WBC 10.44 RBC 3.58 L Hgb 11.6 L Hct 37.0 L MCV 103.4 H MCH 32.4 MCHC 31.4 L RDW 15.6 H Plt Count 383 MPV 9.4 Immature Gran % 0.3 Neutrophils % 75.2 Lymphocytes % 15.7 Monocytes % 7.7 Eosinophils % 0.7 Basophils % 0.4 Nucleated RBC % 0 Absolute Neutrophils 7.86 H Absolute Lymphocytes 1.64 Absolute Monocytes 0.80 Absolute Eosinophils 0.07 Absolute Basophils 0.04 Sodium 138 Potassium 4.7 Chloride 102 Carbon Dioxide 28.3 Anion Gap 7.7 BUN 38 H Creatinine 1.5 H Estimated GFR/1.73 m2 45.14 Glucose 119 H Calcium 8.7 Total Bilirubin 0.6 AST 31 ALT 47 Alkaline Phosphatase 306 H Troponin I 0.05 NT-Pro-B Natriuret Pep > 41468 H Total Protein 7.2 Albumin 3.3 L HPI General Date/Time Provider Initiated Documentation: 05/05/20 15:21. Limitations to Documentation: no limitations. History of Present Illness 79 year old M presents to the emergency department with the chief complaint of Short of breath and dizzy with exertion, described as moderate and similar to prior episodes, and is localized to the chest. Patient reports no radiation. Patient started experiencing this day(s) and it has been intermittent. Rest improves symptom(s), Movement worsens symptoms . Patient notes shortness of breath and other (Swelling in feet); denies chest pain, fever/chills and syncope. Patient did receive the following treatments prior to arrival, none Related Data Home Medications Medication Instructions Recorded Confirmed nitroglycerin 0.4 mg SUBLINGUAL PRN PRN 12/31/12 05/05/20 acetaminophen [Tylenol Arthritis 1,300 mg PO Q6H PRN PRN #0 01/03/13 05/05/20 Pain] aspirin [Aspir-81] 81 mg PO DAILY 10/28/15 05/05/20 allopurinol 100 mg PO DAILY #0 tab 04/16/20 05/05/20 metoprolol succinate 100 mg PO DAILY #0 tab 04/16/20 05/05/20 pantoprazole 40 mg PO DAILY@0730 #30 tab 04/16/20 05/05/20 furosemide 40 mg PO DAILY #0 tab 04/30/20 05/05/20 atorvastatin 80 mg PO DAILY 05/05/20 05/05/20 metolazone See Rx Instructions .ROUTE .COMPLEX 05/05/20 05/05/20 potassium chloride 20 meq PO DAILY 05/05/20 05/05/20 Previous Rx's Medication Instructions Recorded acetaminophen [Tylenol Arthritis 1,300 mg PO Q6H PRN PRN #0 01/03/13 Pain] allopurinol 100 mg PO DAILY #0 tab 04/16/20 metoprolol succinate 100 mg PO DAILY #0 tab 04/16/20 pantoprazole 40 mg PO DAILY@0730 #30 tab 04/16/20 furosemide 40 mg PO DAILY #0 tab 04/30/20 Allergies Allergy/AdvReac Type Severity Reaction Status Date / Time amlodipine AdvReac Intermediate Swelling/Ed Unverified 03/24/20 14:04 lottie enalapril maleate AdvReac Intermediate cough Unverified 03/24/20 14:04 [From Vasotec] enalaprilat dihydrate AdvReac Intermediate cough Unverified 03/24/20 14:04 [From Vasotec] General Stated Complaint: RespSymp RUPESH: 2 Review of Systems Narrative: Denies chest pain. Reports good urination. No syncope. Has been able to cook at home for herself, uses a walker. Notes bilateral ankle swelling. States his weight is approximately 180 pounds. 8 systems reviewed and otherwise negative [facility] Medical History Bladder neck contracture CAD (coronary artery disease) Chronic kidney disease DNI (do not intubate) DNR (do not resuscitate) Hypercholesterolemia Hypertension Ischemic cardiomyopathy Palliative care patient POLST (Physician Orders for Life-Sustaining Treatment) Prostate cancer Surgical History History of heart artery stent S/P prostatectomy Status post THR (total hip replacement) Social History Smoking/Tobacco Use Status: Former Tobacco Use Smoking risk assessment performed?: Yes Alcohol Intake: current Alcohol type: other Drug use: Never Substance use type: does not use Current gender identity: male Do you feel safe at home: Yes Do you feel safe in your relationship?: Yes Exam Narrative Exam Narrative: GEN: awake, alert, oriented 3. Pleasant, well groomed, interactive. HEAD: Normocephalic, atraumatic ENT: Mucous membranes moist, oropharynx unremarkable, External ear exam unremarkable EYES: PERRL, EOMI NECK: Full ROM, no GREG, no menigismus CHEST/RESP: Nontender, bibasilar rales CARDIOVASCULAR: Distant, no murmur, rub sanju appreciated. 2+ Rad pulse bilateral ABDOMEN: Soft, nontender, no mass. +Bowel sounds EXT: Full ROM, 2+ pretibial edema, no rash Neuro: Grossly normal neurologic exam, conversant, interactive. Psych: Speech fluent, thoughts congruent, affect normal Course Vital Signs Vital signs: Vital Signs Temperature 36.7 C 05/05/20 15:26 Pulse 65 05/05/20 15:26 Respiratory Rate 22 05/05/20 15:26 Blood Pressure 162/98 H 05/05/20 15:26 Pulse Oximetry 92 05/05/20 15:26 Temperature 36.7 C 05/05/20 15:26 Temperature Source Skin 05/05/20 15:26 Pulse 65 05/05/20 15:26 Respiratory Rate 22 05/05/20 15:26 Blood Pressure 162/98 H 05/05/20 15:26 Blood Pressure Position Sitting 05/05/20 15:26 Pulse Oximetry 92 05/05/20 15:26 Oxygen Delivery Method Room Air 05/05/20 15:26 Oxygen Flow Rate 0 05/05/20 15:26 Pain Level 0 05/05/20 15:26
[2020-05-05 16:17] LABS: Abs Immature Grans 0.03 10^3/uL (0.0-0.06); Absolute Basophil Count 0.04 10^3/uL (0.0-0.2); Absolute Eosinophil Count 0.07 10^3/uL (0.0-0.7); Absolute Lymphocyte Count 1.64 10^3/uL (1.2-3.4); Absolute Neutrophil Count 7.86 10^3/uL (1.2-6.7); Basophils % 0.4; Eosinophils % 0.7; HGB 11.6 g/dL (13.5-17.5); Immature Grans % 0.3; Lymphocytes % 15.7; MCH 32.4 pg (27.0-33.0); MCHC 31.4 % (32.0-36.0); MCV 103.4 fL (80-95); MPV 9.4 fL (8.0-11.0); Monocytes % 7.7; Neutrophils % 75.2; Nucleated RBC 0 %; Platelet Count 383 10^3/uL (130-400); RBC 3.58 10^6/uL (4.36-5.78); RDW 15.6 % (11.8-14.1); RDW-SD 59.5 fL; WBC 10.44 10^3/uL (4.4-10.8)
[2020-05-05] MEDS: Furosemide 40 MG/4 ML VIAL IVP (16:34)
[2020-05-05 16:44] LABS: ALT 47 U/L (16-63); AST 31 U/L (15-37); Albumin 3.3 g/dL (3.4-5.0); Alkaline Phosphatase 306 U/L (46-116); Anion Gap 7.7 mmol/L (3-11); BUN 38 mg/dL (7-18); Bilirubin, Total 0.6 mg/dL (0.2-1.0); CO2 28.3 mmol/L (21.0-32.0); CREATININE 1.5 mg/dL (0.70-1.30); Calcium 8.7 mg/dL (8.5-10.1); Chloride 102 mmol/L (98-107); Estimated GFR 45.14 (mL/min/1.73m2); Glucose 119 mg/dL (74-106); Potassium 4.7 mmol/L (3.5-5.1); Sodium 138 mmol/L (136-145); Total Protein 7.2 g/dL (6.4-8.2); Troponin I 0.05 ng/mL (<0.06)
--- NOTE | 2020-05-05 16:51 | NUR.NOTE ---
Pt up to commode, became diaphoretic and pale when got back to bed. Sat to low 80's. Placed on 3L O2. Sat up to 93%. MD Hutton aware.
[2020-05-05 17:14] LABS: NT-proBNP > 35000 pg/mL (<300)
[2020-05-05 17:15] VITALS: BP 176/86; PULSE 61; RESP 30; O2SAT 98
--- NOTE | 2020-05-05 17:45 | DI.VRAD_ITS ---
PROCEDURE INFORMATION: Exam: XR Chest Exam date and time: 05/05/2020 5:24 PM Age: 79 years old Clinical indication: Other: SOB, HX chf TECHNIQUE: Imaging protocol: XR of the chest Views: 2 views. COMPARISON: CR XR PORTABLE CHEST AP 04/29/2020 9:47 AM FINDINGS: Lungs: There is increased right basilar airspace opacity, suggesting atelectasis. There is no khari pulmonary vascular congestion. Pleural spaces: There has been mild increase in size of the moderate right pleural effusion. No left pleural effusion is identified. Heart/Mediastinum: Heart appears enlarged, as on prior study. Bones/joints: Unremarkable. IMPRESSION: 1. Increased moderate layering right pleural effusion with underlying airspace opacity suggesting atelectasis. Cannot exclude pneumonia at the right lung base. Recommend clinical correlation and follow-up. 2. Cardiomegaly without congestion. Dictated and Authenticated by: Stefano Flynn MD. Ordering:RACHNA Sorensen MD
[2020-05-05] MEDS: Aspirin 81 MG CHEW 162 MG PO (18:07)
[2020-05-05 18:48] VITALS: BP 180/80; PULSE 56; RESP 22; O2SAT 99
[2020-05-05 19:00] LABS: Source Nasal/Nares
[2020-05-05 19:20] VITALS: BP 184/93; PULSE 51; RESP 19; TEMP 36.2; O2SAT 98
[2020-05-05 20:27] VITALS: PULSE 58
--- NOTE | 2020-05-05 21:36 | HPE_ITS ---
Date of service: 05/05/20 Time of Service: 21:20 Assessment and Plan Assessment and plan (1) Acute on chronic systolic CHF (congestive heart failure): Status: Acute Assessment and plan: Patient endorses compliance with lasix 40 mg po daily and metolazone. I do suspect that it is dietary sodium that's the culprit. Consult nutrition for education on heart healthy diet. Diurese with furosemide 40 mg IV BID. R/o cardiac arrhythmia contributing to CHF - monitor on tele. R/o ACS. Monitor Cr, I/O's, daily weights (2) Pleural effusion, right: Status: Acute Assessment and plan: As above (3) Palpitations: Status: Acute Assessment and plan: With H/o EtOH in the past (patient states he no longer drinks), paroxysmal Afib is a possibility. Monitor on tele. (4) Hypoxia: Status: Acute Assessment and plan: Due to fluid overload. Wean O2 as tolerated as we are diuresing (5) Discharge planning issues: Status: Acute Assessment and plan: DNR/DNI. Has a COLST form. Wishes reviewed again on this admission. (6) DVT prophylaxis: Status: Acute Assessment and plan: SC heparin History of Present Illness History of Present Illness Chief Complaint: shortness of breath and dizziness Narrative: Mr Yuan is a 79 year old male with PMHx of ICMO/mild systolic CHF (EF 50% per echo in 02/2020), as well as h/o CAD, hypertension, CKD III, who is k nown to our service and was discharged from [facility] on 04/30/2020 after a brief admission for CHF exacerbation, who returned to [facility] ED today c/o 3 days of progressively worsening edema of BLE's, shortness of breath on exertion and dizziness when he tried to get up. While in the ED and attempting to transfer to the commode, he had desaturated to 83% on room air (he is not normally on oxygen). He states he weighs himself every day and that his weight has remained stable. He admits to eating potato chips last week and hamburger last night - he states just with a little bit of salt. He responded well to IV lasix in the ED. Hospitalists were asked to take over care. Review of Systems Narrative: Additionally, endorses palpitations. All systems reviewed & are unremarkable except as noted in HPI and below PFSH Medical History Bladder neck contracture CAD (coronary artery disease) CHF (congestive heart failure) EF 50% by echo in 03/19 Chronic kidney disease DNI (do not intubate) DNR (do not resuscitate) Hypercholesterolemia Hypertension Ischemic cardiomyopathy Palliative care patient POLST (Physician Orders for Life-Sustaining Treatment) Prostate cancer Surgical History History of heart artery stent S/P prostatectomy Status post THR (total hip replacement) Social History Smoking/Tobacco Use Status: Former Tobacco Use Smoking risk assessment performed?: Yes Alcohol Intake: current Alcohol type: other Drug use: Never Substance use type: does not use Current gender identity: male Do you feel safe at home: Yes Do you feel safe in your relationship?: Yes Meds Home Medications and Allergies Allergies Allergy/AdvReac Type Severity Reaction Status Date / Time amlodipine AdvReac Intermediate Swelling/Ed Unverified 03/24/20 14:04 lottie enalapril maleate AdvReac Intermediate cough Unverified 03/24/20 14:04 [From Vasotec] enalaprilat dihydrate AdvReac Intermediate cough Unverified 03/24/20 14:04 [From Vasotec] Home Medications Medication Instructions Recorded Confirmed Type nitroglycerin 0.4 mg SUBLINGUAL PRN PRN 12/31/12 05/05/20 History acetaminophen [Tylenol Arthritis 1,300 mg PO Q6H PRN PRN #0 01/03/13 05/05/20 Rx Pain] aspirin [Aspir-81] 81 mg PO DAILY 10/28/15 05/05/20 History allopurinol 100 mg PO DAILY #0 tab 04/16/20 05/05/20 Rx metoprolol succinate 100 mg PO DAILY #0 tab 04/16/20 05/05/20 Rx pantoprazole 40 mg PO DAILY@0730 #30 tab 04/16/20 05/05/20 Rx furosemide 40 mg PO DAILY #0 tab 04/30/20 05/05/20 Rx atorvastatin 80 mg PO DAILY 05/05/20 05/05/20 History metolazone See Rx Instructions .ROUTE .COMPLEX 05/05/20 05/05/20 History potassium chloride 20 meq PO DAILY 05/05/20 05/05/20 History Exam Narrative Exam Narrative: General: Pleasant elderly male who has a slightly unclear speech (his baseline), A&Ox3, looks very animated and no respiratory distress with 2L of O2 on even after ambulating in the room Neurological: A&Ox3, no focal deficits Psychiatric: appropriate speech pattern/content Skin: Visible skin intact HEENT: Atraumatic, normocephalic, EOMI, dry MM, clear oropharynx, no submandi bular or cervical lypmhadenopathy, no goiter or JVD Cardiovascular: RRR, no m/r/g Lungs: Diminished breath sounds at B bases Gastrointestinal: soft, nontender, nondistended Genitourinary: deferred Extremities: 2+ BLE edema 2/[address] bilateral legs[address] Results Imaging Additional studies: CXR: Cardiomegaly, airspace opacities and right pleural effusion. Congestive heart failure cannot be entirely excluded. Pneumonia should also be considered. Please correlate clinically. Per my read, R pleural effusion and pulmonary edema. Labs Result diagrams: 05/05/20 16:00 05/05/20 16:00 Labs: Laboratory Results - last 24 hr 05/05/20 05/05/20 05/05/20 16:00 16:00 18:53 WBC 10.44 RBC 3.58 L Hgb 11.6 L Hct 37.0 L MCV 103.4 H MCH 32.4 MCHC 31.4 L RDW 15.6 H Plt Count 383 MPV 9.4 Immature Gran % 0.3 Neutrophils % 75.2 Lymphocytes % 15.7 Monocytes % 7.7 Eosinophils % 0.7 Basophils % 0.4 Nucleated RBC % 0 Absolute Neutrophils 7.86 H Absolute Lymphocytes 1.64 Absolute Monocytes 0.80 Absolute Eosinophils 0.07 Absolute Basophils 0.04 Sodium 138 Potassium 4.7 Chloride 102 Carbon Dioxide 28.3 Anion Gap 7.7 BUN 38 H Creatinine 1.5 H Estimated GFR/1.73 m2 45.14 Glucose 119 H Calcium 8.7 Total Bilirubin 0.6 AST 31 ALT 47 Alkaline Phosphatase 306 H Troponin I 0.05 NT-Pro-B Natriuret Pep > 69202 H Total Protein 7.2 Albumin 3.3 L COVID-19 Source Nasal/nares Last Vital Signs Temp 36.7 C 05/05/20 15:26 Pulse 56 L 05/05/20 18:48 Resp 22 05/05/20 18:48 BP 180/80 H 05/05/20 18:48 Pulse Ox 99 05/05/20 18:48 COVID-19 Screening Have you, or household traveled for leisure in last 14 days?: No Had IN PERSON contact w/suspected or confirmed C-19 person: No
[2020-05-05 21:53] LABS: COVID-19 PCR Negative (Negative)
[2020-05-05 22:40] LABS: Troponin I 0.05 ng/mL (<0.06)
[2020-05-05] MEDS: Heparin 5,000 UNITS/ML VIAL 5000 UNITS SC (22:50)
[2020-05-05 23:53] VITALS: BP 169/88; PULSE 61; PULSE 71; RESP 19; TEMP 36.4; O2SAT 92
[2020-05-06] VITALS (9 sets, daily range): BP systolic 150–180; BP diastolic 73–94; PULSE 59–71; RESP 17–19; TEMP 36.4–36.8; O2SAT 82–97
[2020-05-06 07:31] LABS: Abs Immature Grans 0.04 10^3/uL (0.0-0.06); Absolute Basophil Count 0.05 10^3/uL (0.0-0.2); Absolute Eosinophil Count 0.06 10^3/uL (0.0-0.7); Absolute Lymphocyte Count 1.28 10^3/uL (1.2-3.4); Absolute Monocyte Count 0.69 10^3/uL (0.1-0.8); Absolute Neutrophil Count 7.18 10^3/uL (1.2-6.7); Basophils % 0.5; Eosinophils % 0.6; HCT 37.7 % (40.0-50.0); HGB 11.7 g/dL (13.5-17.5); Immature Grans % 0.4; Lymphocytes % 13.8; MCH 32.4 pg (27.0-33.0); MCV 104.4 fL (80-95); MPV 9.8 fL (8.0-11.0); Monocytes % 7.4; Neutrophils % 77.3; Nucleated RBC 0 %; Platelet Count 305 10^3/uL (130-400); RBC 3.61 10^6/uL (4.36-5.78); RDW 15.5 % (11.8-14.1)
[2020-05-06] MEDS: Normal Saline Flush 10 ML SYR IVP ×2 (07:56→16:50)
[2020-05-06] MEDS: Furosemide 40 MG/4 ML VIAL IVP ×2 (07:56→16:50)
[2020-05-06] MEDS: Metoprolol CR 25 MG TABCR 100 MG PO (07:57)
[2020-05-06] MEDS: Atorvastatin 40 MG TAB 80 MG PO (07:57)
[2020-05-06] MEDS: Allopurinol 100 MG TAB PO (07:57)
[2020-05-06] MEDS: Aspirin E.C. 81 MG TABEC PO (07:57)
[2020-05-06] MEDS: Potassium Chloride 20 MEQ TABCR PO (07:57)
[2020-05-06] MEDS: Pantoprazole 40 MG TABCR PO (07:58)
[2020-05-06] MEDS: metOLazone 2.5 MG TAB PO (08:01)
[2020-05-06 08:07] LABS: Anion Gap 5.1 mmol/L (3-11); BUN 40 mg/dL (7-18); CO2 31.9 mmol/L (21.0-32.0); CREATININE 1.6 mg/dL (0.70-1.30); Calcium 9.4 mg/dL (8.5-10.1); Chloride 102 mmol/L (98-107); Glucose 97 mg/dL (74-106); Magnesium 2.2 mg/dL (1.8-2.4); Sodium 139 mmol/L (136-145); Troponin I < 0.05 ng/mL (<0.06)
[2020-05-06 08:13] LABS: Potassium 6.1 mmol/L (3.5-5.1)
--- NOTE | 2020-05-06 08:15 | RT.EKG_ITS ---
APPROVED REPORT Exam: Resting ECG Patient Location: I HR:64 bpm ECG Measurements Heart Rate 64 AXIS SD 231 P 15 QRSd 149 QRS -27 QT 480 T 131 QTc 491 Conclusion Sinus rhythm...normal P axis, V-rate 60- 99 Atrial premature complexes...SV complexes w/ short R-R intvls Sinus pause...long R-R interval, normal QRSd Prolonged SD interval...SD >220, V-rate 50- 90 IVCD, consider RBBB...QRSd>120mS, terminal axis(90,270) Probable anterior infarct, age indeterminate...Q >35mS, T neg, V2-V5
--- NOTE | 2020-05-06 10:28 | W.PM.PROGNOT ---
Date of Service Date of service: 05/06/20 Time of Service: 10:28 Assessment and Plan Assessment and plan (1) Acute on chronic systolic CHF (congestive heart failure): Status: Acute Assessment and plan: Patient endorses compliance with lasix 40 mg po daily and metolazone. Consult nutrition for education on heart healthy diet. Diurese with furosemide 40 mg IV BID. R/o cardiac arrhythmia contributing to CHF - monitor on tele. R/o ACS. Monitor Cr, I/O's, daily weights (2) Pleural effusion, right: Status: Acute Assessment and plan: As above (3) Palpitations: Status: Acute Assessment and plan: With H/o EtOH in the past (patient states he no longer drinks), paroxysmal Afib is a possibility. Monitor on tele. (4) Hypoxia: Status: Acute Assessment and plan: Due to fluid overload. has been weaned off O2 (5) DVT prophylaxis: Status: Acute Assessment and plan: SC heparin (6) Discharge planning issues: Status: Acute Assessment and plan: DNR/DNI. Has a COLST form. case management following. declines home health services or swing level stay. will discharge home when medically stable. discussed with Dr Lema Subjective Subjective Patient reports: no new complaints, tolerating liquids well, tolerating a regular diet, voiding w/o difficulty, shortness of breath (with activity, improved since admission) and afebrile Exam Const General: comfortable and no acute distress Nutritional Appearance: average body habitus Orientation: alert, awake and oriented x3 HENMT Head: normal to inspection, normocephalic and atraumatic Resp Effort & Inspection: normal respiratory effort Cardio Rate: regular rate Rhythm: regular rhythm GI Inspection: normal to inspection Palpation: soft Skin General skin exam: no rashes or lesions noted Neuro General: patient alert, patient awake and moves all extremities Extrem General: edema (trace) Laterality: bilateral Objective Last Vital Signs Temp 36.8 C 05/06/20 07:40 Pulse 60 05/06/20 07:40 Resp 19 05/06/20 07:40 BP 165/94 H 05/06/20 07:40 Pulse Ox 95 05/06/20 07:40 Laboratory Results - last 24 hr 05/05/20 05/05/20 05/05/20 16:00 16:00 18:53 WBC 10.44 RBC 3.58 L Hgb 11.6 L Hct 37.0 L MCV 103.4 H MCH 32.4 MCHC 31.4 L RDW 15.6 H Plt Count 383 MPV 9.4 Immature Gran % 0.3 Neutrophils % 75.2 Lymphocytes % 15.7 Monocytes % 7.7 Eosinophils % 0.7 Basophils % 0.4 Nucleated RBC % 0 Absolute Neutrophils 7.86 H Absolute Lymphocytes 1.64 Absolute Monocytes 0.80 Absolute Eosinophils 0.07 Absolute Basophils 0.04 Sodium 138 Potassium 4.7 Chloride 102 Carbon Dioxide 28.3 Anion Gap 7.7 BUN 38 H Creatinine 1.5 H Estimated GFR/1.73 m2 45.14 Glucose 119 H Calcium 8.7 Magnesium Total Bilirubin 0.6 AST 31 ALT 47 Alkaline Phosphatase 306 H Troponin I 0.05 NT-Pro-B Natriuret Pep > 81852 H Total Protein 7.2 Albumin 3.3 L COVID-19 Source Nasal/nares SARS-CoV-2 (PCR) Negative 05/05/20 05/06/20 05/06/20 21:10 07:10 07:10 WBC 9.30 RBC 3.61 L Hgb 11.7 L Hct 37.7 L MCV 104.4 H MCH 32.4 MCHC 31.0 L RDW 15.5 H Plt Count 305 MPV 9.8 Immature Gran % 0.4 Neutrophils % 77.3 Lymphocytes % 13.8 Monocytes % 7.4 Eosinophils % 0.6 Basophils % 0.5 Nucleated RBC % 0 Absolute Neutrophils 7.18 H Absolute Lymphocytes 1.28 Absolute Monocytes 0.69 Absolute Eosinophils 0.06 Absolute Basophils 0.05 Sodium 139 Potassium 6.1 H* D Chloride 102 Carbon Dioxide 31.9 Anion Gap 5.1 BUN 40 H Creatinine 1.6 H Estimated GFR/1.73 m2 41.90 Glucose 97 Calcium 9.4 Magnesium 2.2 Total Bilirubin AST ALT Alkaline Phosphatase Troponin I 0.05 < 0.05 NT-Pro-B Natriuret Pep Total Protein Albumin COVID-19 Source SARS-CoV-2 (PCR)
[2020-05-06] MEDS: Heparin 5,000 UNITS/ML VIAL 5000 UNITS SC ×2 (10:34→22:23)
[2020-05-06 11:03] LABS: Anion Gap 7.5 mmol/L (3-11); BUN 38 mg/dL (7-18); CO2 32.5 mmol/L (21.0-32.0); CREATININE 1.6 mg/dL (0.70-1.30); Calcium 8.9 mg/dL (8.5-10.1); Chloride 99 mmol/L (98-107); Glucose 98 mg/dL (74-106); Potassium 4.5 mmol/L (3.5-5.1); Sodium 139 mmol/L (136-145)
--- NOTE | 2020-05-06 11:08 | INITIAL_ITS ---
- If Service Date Differs Date of service: 05/06/20 Time of Service: 11:09 Care Management Initial Assess REASON FOR HOSPITALIZATION:: Acute exacerbation of CHF PAST MEDICAL HISTORY/PAST SURGICAL HISTORY:: Medical History (Updated 03/24/20 @ 16:56 by Mónica Moreno MD). Bladder neck contracture. CAD (coronary artery disease). Chronic kidney disease. Hypercholesterolemia. Hypertension. Ischemic cardiomyopathy. Prostate cancer. Surgical History . History of heart artery stent. S/P prostatectomy. Status post THR (total hip replacement) PREVIOUS FUNCTIONAL STATUS/SOCIAL/FAMILY SUPPORTS:: Joaquín lives alone in a stud apartment in [place], [place] He has a son Aiden who lives in [place], [place]. and is supportive. In addition, Joaquín ahs many friends in the area. He is in dependent at baseline and continues to drive. CURRENT FUNCTIONAL STATUS:: Joaquín was sitting up in his chair when CM met with him. He was forthcoming with information but a bit rigid in his thinking; not willing to consider VNA or SNF services at this time. ADVANCE DIRECTIVES:: COLST form on file. Has patient been provided with info about the portal/API?: No Did the patient sign up for the portal?: No CODE STATUS:: DNR/DNI INSURANCE COVERAGE / FINANCIAL ISSUES:: Medicare. CURRENT HOME/COMMUNITY SERVICES/EQUIPMENT:: Home Health ordered upon previous admissions; Joaquín dismissed services. PRIMARY CARE PHYSICIAN:: Taz Collins MD. POTENTIAL DISCHARGE NEEDS:: SNF placement discussion. PATIENT/FAMILY EDUCATION NEEDS:: Review discharge instructions, discuss Ask Me Three. ANTICIPATED BARRIERS TO DISCHARGE:: None identified. TRANSPORTATION:: Via private vehicle with his son. PLAN:: Joaquín will return home when ready per MD, at his request. CM reviewed re- admissions and service refusal (VNA) with Joaquín, who reported he is certain he is taking his medications as scheduled and eating a low salt diet; he believes the medication changes over the last few admissions are responsible for his recurrent CHF issues. CM notified provider that Joaquín is refusing SNF, and home health services at this time, and continues to follow. Readmission - Within the Past 30 Days Yes or No: Y - Date of First Admission Date of 1st Admission: 04/29/20 - Date of this Admission Date of Admission: 05/05/20 This admission was: Through ED - Office Visit Since 1st Admission Have you seen your PCP in the office since discharge?: Yes Date of PCP Appointment: 05/04/20 Had an appointment Been Scheduled?: Yes Date of Scheduled Appointment: 05/04/20 - Speicalist Appointments Have you seen any other specialist since your 1st Admission?: No - I. Interview patient and/or Family Difficulty reaching your doctor or getting an office appt?: No Have you had trouble purchasing/ or taking medication?: No Describe barriers fpr purchasing or taking medication: Pt refused VNA supports; stating he is certain he is taking his medications as prescribed. Joaquín states he believes recent medication changes are responsible for his increased medical issues. How do you take your medications and set up your pills?: Pill box, list on refridgerator. Have you had trouble with getting meals at home?: No Did you feel ready for discharge when you left the last time: Yes Were services received that you thought were set up on disch: No What services were received?: Patient declined VNA. Why weren't services received?: Patient declined VNA. If patient did not receive services, were there orders at: Yes - If the patient had a VNA ordered Did the patient have a VNA order?: Yes - Ask the Care Team Members: What do you think caused the patient to be readmitted: Uncertainty around medications as Joaquín refused VNA supports once home. - Assessment for Readmission Summary of readmission circumstances, based upon interviews: Joaquín was agreeable to VNA orders upon discharge; discussion was had as he had previously declined supports upon his last discharge. Joaquín maintains there are no services or supports that can be offered that will change the outcome of recurrent CHF. He feels strongly that recent medication changes are responsible for his ongoing issues.
[2020-05-07] VITALS (12 sets, daily range): BP systolic 162–185; BP diastolic 66–97; PULSE 60–88; RESP 17–20; TEMP 36.1–37; O2SAT 85–100
[2020-05-07] MEDS: Atorvastatin 40 MG TAB 80 MG PO (09:35)
[2020-05-07] MEDS: Aspirin E.C. 81 MG TABEC PO (09:36)
[2020-05-07] MEDS: Pantoprazole 40 MG TABCR PO (09:36)
[2020-05-07] MEDS: Metoprolol CR 25 MG TABCR 100 MG PO (09:36)
[2020-05-07] MEDS: Allopurinol 100 MG TAB PO (09:37)
[2020-05-07] MEDS: Heparin 5,000 UNITS/ML VIAL 5000 UNITS SC ×2 (09:37→21:15)
[2020-05-07] MEDS: Furosemide 40 MG/4 ML VIAL IVP ×2 (09:38→16:24)
[2020-05-07] MEDS: Normal Saline Flush 10 ML SYR IVP ×2 (09:39→16:24)
--- NOTE | 2020-05-07 10:31 | W.PM.PROGNOT ---
Date of Service Date of service: 05/07/20 Time of Service: 10:31 Assessment and Plan Assessment and plan (1) Acute on chronic systolic CHF (congestive heart failure): Status: Acute Assessment and plan: Patient endorses compliance with lasix 40 mg po daily and metolazone. Consult nutrition for education on heart healthy diet. Diurese with furosemide 40 mg IV BID. R/o cardiac arrhythmia contributing to CHF - monitor on tele. R/o ACS. Monitor Cr, I/O's, daily weights (2) Pleural effusion, right: Status: Acute Assessment and plan: As above (3) Palpitations: Status: Acute Assessment and plan: With H/o EtOH in the past (patient states he no longer drinks), paroxysmal Afib is a possibility. Monitor on tele. (4) Hypoxia: Status: Acute Assessment and plan: Due to fluid overload. had been weaned off O2 but placed on overnight for desat into the 80's. check exercise oximetry will change to inpatient d/t this decline (5) DVT prophylaxis: Status: Acute Assessment and plan: SC heparin (6) Discharge planning issues: Status: Acute Assessment and plan: DNR/DNI. Has a COLST form. case management following. declines home health services or swing level stay. will discharge home when medically stable. discussed with Dr Lema Subjective Subjective Patient reports: no new complaints, tolerating liquids well, tolerating a regular diet, shortness of breath (with activity) and afebrile Interval history since last seen: desat into the high 80's overnight. Exam Const General: comfortable and no acute distress Nutritional Appearance: average body habitus Orientation: alert, awake and oriented x3 HENMT Head: normal to inspection, normocephalic and atraumatic Resp Effort & Inspection: normal respiratory effort Cardio Rate: regular rate Rhythm: regular rhythm GI Inspection: normal to inspection Palpation: soft Skin General skin exam: no rashes or lesions noted Neuro General: patient alert, patient awake and moves all extremities Extrem General: edema (trace) Laterality: bilateral Objective Last Vital Signs Temp 36.1 C L 05/07/20 07:42 Pulse 67 05/07/20 07:42 Resp 18 05/07/20 07:42 BP 185/78 H 05/07/20 07:42 Pulse Ox 95 05/07/20 07:42 Laboratory Results - last 24 hr 05/06/20 10:40 Sodium 139 Potassium 4.5 D Chloride 99 Carbon Dioxide 32.5 H Anion Gap 7.5 BUN 38 H Creatinine 1.6 H Estimated GFR/1.73 m2 41.90 Glucose 98 Calcium 8.9
--- NOTE | 2020-05-07 12:46 | W.NUTCONSULT ---
Date of service: 05/07/20 Time of Service: 12:46 Nutritional Consult ASSESSMENT: 79 year old male admitted with acute chronic systolic CHF. BMI wnl for age with PMH: HTN, CKD3 and edema. Following Heart Healthy Diet with excellent intake. Met with Simon Kwabena today to review principles of low salt diet/heart healthy meal plan. Joaquín reports frequent intakes of currie, sausage, soups and take out foods that may all be contributing to edema. Reviewed ideal meal plan to reduce fluid retention, encouraged daily weights and limiting sodium to no more than 1500 mg per day. Provided meal plans and education material and ecouraged him to reach out as needed- contact information provided. Time Spent in Nutritional Counseling and Treatment: 15 min
--- NOTE | 2020-05-07 18:30 | CMPROGNOTE_ITS ---
- If Service Date Differs Date of service: 05/07/20 Time of Service: 18:30 Care Management Progress Note S/O: Joaquín was sitting up in his chair in his own clothes when CM met with him. He reported that he is doing well, but still requiring some O2. He does not have O2 at home, and he was not happy with it previously, as it drove up his electric bill, per his report. He was very pleasant and engaged in conversation with CM readily. He reported that he was hoping to return home today, but is ok with staying another night. He doesn't feel that he needs any services at home. He has a plan to manage on his own with the help of his children. CM will continue to follow. A: Joaquín is a 79 year old male admitted to [facility] on 05/05/20 with CHF. P: Joaquín will return home when ready per MD, at his request. CM reviewed re- admissions and service refusal (VNA) with Joaquín, who reported he is certain he is taking his medications as scheduled and eating a low salt diet; he believes the medication changes over the last few admissions are responsible for his recurrent CHF issues. CM notified provider that Joaquín is refusing SNF, and home health services at this time, and continues to follow.
[2020-05-08] VITALS (8 sets, daily range): BP systolic 134–168; BP diastolic 66–80; PULSE 57–76; RESP 20–22; TEMP 36.3–36.8; O2SAT 93–96
[2020-05-08 06:59] LABS: Abs Immature Grans 0.04 10^3/uL (0.0-0.06); Absolute Basophil Count 0.05 10^3/uL (0.0-0.2); Absolute Eosinophil Count 0.19 10^3/uL (0.0-0.7); Absolute Monocyte Count 0.93 10^3/uL (0.1-0.8); Absolute Neutrophil Count 6.11 10^3/uL (1.2-6.7); Basophils % 0.6; Eosinophils % 2.2; HCT 36.9 % (40.0-50.0); HGB 11.8 g/dL (13.5-17.5); Immature Grans % 0.5; Lymphocytes % 16.1; MCH 32.2 pg (27.0-33.0); MCV 100.5 fL (80-95); MPV 9.1 fL (8.0-11.0); Monocytes % 10.7; Neutrophils % 69.9; Nucleated RBC 0 %; Platelet Count 285 10^3/uL (130-400); RBC 3.67 10^6/uL (4.36-5.78); RDW-SD 56.1 fL; WBC 8.72 10^3/uL (4.4-10.8)
[2020-05-08 07:09] LABS: Anion Gap 1.7 mmol/L (3-11); BUN 33 mg/dL (7-18); CO2 38.3 mmol/L (21.0-32.0); CREATININE 1.4 mg/dL (0.70-1.30); Calcium 9.3 mg/dL (8.5-10.1); Chloride 97 mmol/L (98-107); Estimated GFR 48.89 (mL/min/1.73m2); Glucose 90 mg/dL (74-106); Potassium 5.1 mmol/L (3.5-5.1); Sodium 137 mmol/L (136-145)
[2020-05-08] MEDS: Aspirin E.C. 81 MG TABEC PO (07:56)
[2020-05-08] MEDS: Metoprolol CR 25 MG TABCR 100 MG PO (07:56)
[2020-05-08] MEDS: Normal Saline Flush 10 ML SYR IVP (07:56)
[2020-05-08] MEDS: Pantoprazole 40 MG TABCR PO (07:56)
[2020-05-08] MEDS: Atorvastatin 40 MG TAB 80 MG PO (07:56)
[2020-05-08] MEDS: Furosemide 40 MG/4 ML VIAL IVP (07:56)
[2020-05-08] MEDS: Allopurinol 100 MG TAB PO (07:57)
[2020-05-08] MEDS: metOLazone 2.5 MG TAB PO (07:58)
[2020-05-08] MEDS: Heparin 5,000 UNITS/ML VIAL 5000 UNITS SC (11:25)
--- NOTE | 2020-05-08 14:11 | PDOC.CMDIS ---
LACE Index Scoring Tool - Questions: Length of Stay (in days): 3 Acuity (Admit via E.D.?): Yes Comorbidities: Congestive Heart Failure, Any Tumor, Liver or Renal Disease E.D. Visits: 3 - Answers: Total Score: 14 Risk of Readmission: High Risk Care Management Discharge Reason for Hospitalization: Acute exacerbation of CHF Discharge Plan: Joaquín will return home when ready per MD, he is currently agreeable to VNA supports; CM reviewed prior denials with Dr. Lewis and Joaquín who shared he would accept this time. CM advised VNA will call out to Joaquín to ensure he will accept services prior to admitting him to skilled care services. Joaquín will have new home O2-through [employer] ([facility] preference per [facility]). [facility] to review service support and O2; [place] of [facility] provided [employer] tank for discharge. CM coordinated [facility] transport via private vehicle; reviewed discharge plan with Joaquín and his son, Berto. Berto will be at Joaquín's home for [employer] visit. Patient/Family Education Needs: Review discharge instructions, discuss Ask Me Three. Services Needed at Discharge: Home Health Care Services (Anticipated orders for RN. Joaquín will need to accept services directly due to prior refusals. ), Respiratory Therapy (New O2-[employer]), Transportation ([facility] private courier delivery driver )
--- NOTE | 2020-05-08 14:23 | PDOC.HHF2F_ITS ---
Home Health Certification Home Health Certification: 1. Encounter Date and Reason I certify that JOAQUÍN SMITH was seen by Kamila Lewis MD on 05/08/20 and that I had a [id number] encounter with this patient that meets the physician face to face encounter requirements. 2. Clinical Findings Supporting Skilled Need and Homebound Status I certify that home health services are medically necessary, include either intermittent fdc and/or physical/speech therapy, and that this patient is homebound in that absences from the home require considerable and taxing effort and are infrequent or of short duration, or are attributable to the need to receive medical care. [X] (a) Attached documentation from encounter provides clinical findings supporting skilled need and homebound status (including what assistance patient requires to leave the home). The encounter with the patient was in whole, or in part, for the following medical condition, which is the primary reason for home health care: ACUTE EXACERBATION OF CHF Detention: Joaquín has been admitted 3 times for CHF this year. On this admission, he diuresed more than 4600 ccs in 24 hrs. His furosemide dose was increased from 20 mg bid to 40 mg bid. He is also on metalazone; this dose was not changed. He will need help looking at his pill boxes that he has already filled to reflect this new dose. He may need instructions on daily weights and diet, too. 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 3. Certification and Authentication I certify that I composed the above information based on my clinical judgement relating to this patient's medical condition and, if applicable, clinical findings communicated to me by the NPP or inpatient physician who performed the Home Health Referral. All further orders will be obtained through Dr Shawn Collins (Community Based Physician - PCP)
--- NOTE | 2020-05-08 14:26 | W.PM.DS.N ---
Date of service: 05/08/20 Time of Service: 14:26 DS: Diagnosis Discharge Diagnosis (1) Acute on chronic systolic CHF (congestive heart failure): Status: Acute Asessment and Plan: diuresed 4600 ccs over last 24 hrs prior to discharge. was on furosemide 40 mg IV bid while inpatient changing him to higher dose of lasix as outpatient goal is to keep him comfortable at home if possible (2) Pleural effusion, right: Status: Acute (3) Palpitations: Status: Acute Asessment and Plan: asymptomatic from them at time of discharge (4) Hypoxia: Status: Chronic Asessment and Plan: He did the walk test with respiratory therapy and his oxygen sat dropped down to 85% on RA, even after diuresis. He is being discharged on oxygen at 2L/min to maintain oxygen sat of 90% or higher while ambulating (5) DVT prophylaxis: Status: Acute (6) Discharge planning issues: Status: Acute Asessment and Plan: Initially Joaquín was refusing home health. This has been ordered for him on previous discharges and he has not let the nurses in. STRONGLY recommended he allow nurses to help him given his recent numerous admissions and medication changes associated with them. Dagoberto Thomson strongly advocating for his father to accept this other layer of care. (7) Palliative care patient: Status: Chronic Asessment and Plan: Usually followed by Aliyah Tom NP from [facility]. Asked that his May appointment be moved up to the end of this month. Discharge Plan Disposition Patient Disposition: HOME W/HOME HEALTH SERVICE Condition: Stable Discharge Details Reason For Visit: ACUTE EXACERBATION OF CHF Admit Date/Time: 05/07/20 10:19 Admit Provider: Mónica Moreno Attending Provider: Mónica Moreno Primary Care Provider: Taz Collins Hospital Course Hospital Course: Admitted with another CHF exacerbation, 3rd of the month. Diuresed. Took off 4600 ccs over the previous 24 hrs. Agreed to go home with oxygen and with home health services. Dagoberto Thomson strongly advocating for his father to have both. Home Meds and New Rx's Prescriptions: New furosemide 40 mg Tablet 40 mg PO BID@0830,1600 Qty: 60 RF: 0 Continued nitroglycerin 0.4 MG tablet, sublingual 0.4 mg Sublingual PRN PRNRF: 0 acetaminophen [Tylenol Arthritis Pain] 650 MG tablet extended release 1,300 mg PO Q6H PRN PRNQty: 0 RF: 0 aspirin [Aspir-81] 81 MG tablet,delayed release (DR/EC) 81 mg PO DAILY RF: 0 pantoprazole 40 mg Tablet,Delayed Release (Dr/Ec) 40 mg PO DAILY@0730 Qty: 30 RF: 0 allopurinol 100 MG tablet 100 mg PO DAILY Qty: 0 RF: 0 metoprolol succinate 25 MG tablet extended release 24 hr 100 mg PO DAILY Qty: 0 RF: 0 potassium chloride 20 mEq tablet extended release 20 meq PO DAILY RF: 0 metolazone 2.5 mg tablet See Rx Instructions .ROUTE .COMPLEX RF: 0 atorvastatin 40 mg tablet 80 mg PO DAILY RF: 0 Discontinued furosemide 20 mg Tablet 40 mg PO DAILY Qty: 0 RF: 0 Discharge Instructions Instructions: Heart Failure (DC) Additional Instructions: We increased your water pill (furosemide) to 40 mg twice a day. Take your second pill at lunchtime so you won't be up all night running to the bathroom. Stand Alone Forms: Nursing Discharge Form Referrals: Taz Collins MD [Primary Care Provider] - 05/14/20 11:05 am (going home with home health services and oxygen nurse phone call on 05/11 would be helpful has had 3 admits in last month, partially due to medication confusion) Activity:: Activity as Tolerated Equipment/Supplies:: Oxygen (L/min Below) Diet:: Low Sodium Discharge Orders Discharge Orders: Discharge Order (Routine); Ordered 05/08/20 Ordered By: Kamila Lewis DS: Summary Time Spent with Patient providing and/or coordinating discharge services: Greater than 30 minutes Status at Discharge Functional status at discharge: independent ambulation Overall status at discharge: patient is back to baseline Mental Status: mental status grossly normal Speech and Movement: No speech clear (baseline slurred speech) Mood: congruent mood Affect: normal affect Exam Const General: comfortable and no acute distress Nutritional Appearance: average body habitus Orientation: alert, awake and oriented x3 HENMT Head: normal to inspection, normocephalic and atraumatic Eyes Conjunctivae: conjunctivae normal Sclera: sclerae normal Neck Neck: no JVD Lymphatic: no lymphadenopathy noted Resp Effort & Inspection: normal respiratory effort Cardio Rate: regular rate Rhythm: regular rhythm GI Inspection: normal to inspection Palpation: soft Skin General skin exam: no rashes or lesions noted Neuro General: patient alert, patient awake and moves all extremities Extrem General: cyanosis of the fingers and edema (trace) Laterality: bilateral Psych Appearance: grossly normal Mental Status: mental status grossly normal Speech and Movement: speech not clear (baseline slurred speech) Mood: congruent mood Affect: normal affect Attitude: cooperative Insight: fair Judgment: fair DS: Data Vitals/I&O Vitals and I&O: Vital Signs Temperature 97.3 F L 05/08/20 11:03 Temperature Source Tympanic 05/08/20 11:03 Pulse 66 05/08/20 11:03 Pulse Rhythm Irregular 05/08/20 07:45 Respiratory Rate 20 05/08/20 11:03 Respiratory Effort Non-Labored 05/08/20 07:45 Respiratory Depth Normal 05/08/20 07:45 Respiratory Pattern Normal 05/08/20 07:45 Blood Pressure 134/80 05/08/20 11:03 Blood Pressure Position Sitting 05/05/20 15:26 Pulse Oximetry 93 05/08/20 11:03 Oxygen Delivery Method Room Air 05/08/20 11:03 Oxygen Flow Rate 0 05/08/20 11:03 Pain Level 0 05/08/20 11:03 Comment 05/07/20 23:38 Intake & Output 05/07/20 05/08/20 05/08/20 23:59 11:59 23:59 Intake Total 480 / 720 Output Total 2600 / 4600 1550 / 1550 Balance -2120 / -3880 -1550 / -1550 Weight 175 lb 4.28 oz Intake: Oral 480 / 720 Output: Urine 2600 / 4600 1550 / 1550 Other: Urine Color Yellow Yellow Urine Appearance Clear Cloudy Urine Odor Normal Normal Stool Size Moderate Stool Characteristics Soft Formed Brown Voiding Methods Toilet Toilet Data Completed and Pending Labs on day of discharge: Labs from last 24 hours 05/08/20 05/08/20 06:50 06:50 WBC 8.72 RBC 3.67 L Hgb 11.8 L Hct 36.9 L MCV 100.5 H MCH 32.2 MCHC 32.0 RDW 15.0 H Plt Count 285 MPV 9.1 Immature Gran % 0.5 Neutrophils % 69.9 Lymphocytes % 16.1 Monocytes % 10.7 Eosinophils % 2.2 Basophils % 0.6 Nucleated RBC % 0 Absolute Neutrophils 6.11 Absolute Lymphocytes 1.40 Absolute Monocytes 0.93 H Absolute Eosinophils 0.19 Absolute Basophils 0.05 Sodium 137 Potassium 5.1 Chloride 97 L Carbon Dioxide 38.3 H Anion Gap 1.7 L BUN 33 H Creatinine 1.4 H Estimated GFR/1.73 m2 48.89 Glucose 90 Calcium 9.3 PFSH Medical History Bladder neck contracture CAD (coronary artery disease) CHF (congestive heart failure) EF 50% by echo in 03/19 Chronic kidney disease DNI (do not intubate) DNR (do not resuscitate) Hypercholesterolemia Hypertension Ischemic cardiomyopathy Palliative care patient POLST (Physician Orders for Life-Sustaining Treatment) Prostate cancer Surgical History History of heart artery stent S/P prostatectomy Status post THR (total hip replacement) Family History (Updated 05/08/20 @ 14:33 by Kamila Lewis MD) Son No problems noted. Social History (Updated 05/08/20 @ 14:35 by Kamila Lewis MD) Smoking/Tobacco Use Status: Former Tobacco Use Smoking risk assessment performed?: Yes Alcohol Intake: current Alcohol type: other Drug use: Never Substance use type: does not use Caregiver/Support person: Yes Communication Needs: Hard of Hearing and Corrective Lenses Education Level: high school Do you need help understanding health information?: Always Current gender identity: male How often do you talk on the phone with friends or family?: three or more times per week How often do you get together with friends or relatives?: three or more times per week Panel score (0-1 are the most socially isolated patients): 1 What type of physical activity do you participate in: walking Duration: 15-30 minutes/day Special deanna needs: No Seatbelt use: always Do you feel safe at home: Yes Do you feel safe in your relationship?: Yes Additional Social history: Son Berto is his main person who helps care for him. He is a , but was posted in [place] during the [employer] era. He has insurance with both medicare and [employer].
== END 2020-05-08 15:29 | disposition home health service (06) | DRG 291 ==
LOC: ER 18:26 → MS 19:15
PROVIDERS: Internal Medicine; Nurse Practitioner Acute Care; Admitting Provider Internal Medicine; Emergency Provider Emergency Medicine; PCP Internal Medicine; Visit Provider Internal Medicine
DX: I13.0 Hypertensive heart and chronic kidney disease with heart failure and stage 1 through stage 4 chronic kidney disease, or unspecified chronic kidney disease (principal); I50.23 Acute on chronic systolic (congestive) heart failure; I25.10 Atherosclerotic heart disease of native coronary artery without angina pectoris; N18.9 Chronic kidney disease, unspecified; Z66 Do not resuscitate; E78.00 Pure hypercholesterolemia, unspecified; I25.5 Ischemic cardiomyopathy; Z85.46 Personal history of malignant neoplasm of prostate; Z87.891 Personal history of nicotine dependence; N32.0 Bladder-neck obstruction; R09.02 Hypoxemia; R00.2 Palpitations
CPT/HCPCS: 36415; 80048; 80053; 93005; 94618; 96374; 99220; 99226; 99233; 99239; 99285; 71046; 83735; 83880; 84484; 85025; 93010; G0378; J1644; J1940

== ENCOUNTER 2020-05-14 18:27 | Outpatient (REF) | payer MEDICARE, OTHER, SELFPAY ==
[2020-05-14 21:28] LABS: Anion Gap 5.5 mmol/L (3-11); BUN 52 mg/dL (7-18); CO2 33.5 mmol/L (21.0-32.0); CREATININE 1.7 mg/dL (0.70-1.30); Calcium 8.9 mg/dL (8.5-10.1); Chloride 99 mmol/L (98-107); Estimated GFR 39.07 (mL/min/1.73m2); Glucose 105 mg/dL (74-106); NT-proBNP 10269 pg/mL (<300); Potassium 4.7 mmol/L (3.5-5.1); Sodium 138 mmol/L (136-145)
== END 2020-05-14 18:28 | disposition home or self-care (01) ==
LOC: NCHCN 18:27
PROVIDERS: PCP Internal Medicine; Visit Provider Internal Medicine
DX: I10 Essential (primary) hypertension (principal); N18.30 Chronic kidney disease, stage 3 unspecified; I50.9 Heart failure, unspecified; R09.02 Hypoxemia
CPT/HCPCS: 80048; 83880

== ENCOUNTER 2020-06-02 12:30 | Outpatient (REF) | payer MEDICARE, OTHER, SELFPAY ==
[2020-06-03 18:29] LABS: COVID-19 RT-PCR UVMMC Result Negative (Negative)
== END 2020-06-02 12:31 | disposition home or self-care (01) ==
LOC: NCHCN 12:30
PROVIDERS: PCP Internal Medicine; Visit Provider Internal Medicine
DX: Z20.822 Contact with and (suspected) exposure to COVID-19 (principal)
CPT/HCPCS: U0003; U0005

== ENCOUNTER 2020-06-15 11:22 | Outpatient (REF) | payer MEDICARE, OTHER, SELFPAY ==
[2020-06-15 13:32] LABS: Anion Gap 8.6 mmol/L (3-11); BUN 56 mg/dL (7-18); CO2 29.4 mmol/L (21.0-32.0); CREATININE 1.4 mg/dL (0.70-1.30); Calcium 9.6 mg/dL (8.5-10.1); Chloride 101 mmol/L (98-107); Estimated GFR 48.89 (mL/min/1.73m2); Glucose 91 mg/dL (74-106); NT-proBNP 9732 pg/mL (<300); Potassium 4.5 mmol/L (3.5-5.1); Sodium 139 mmol/L (136-145)
== END 2020-06-15 11:23 | disposition home or self-care (01) ==
LOC: NCHCN 11:22
PROVIDERS: PCP Internal Medicine; Visit Provider Internal Medicine
DX: I10 Essential (primary) hypertension (principal); I50.9 Heart failure, unspecified
CPT/HCPCS: 80048; 83880

== ENCOUNTER 2020-07-11 11:40 | Emergency (ER) | payer MEDICARE, OTHER, SELFPAY ==
[2020-07-11] VITALS (39 sets, daily range): BP systolic 142–188; BP diastolic 68–91; PULSE 58–125; RESP 10–31; TEMP 36.6; O2SAT 89–97
--- NOTE | 2020-07-11 11:45 | RT.EKG_ITS ---
APPROVED REPORT Exam: Resting ECG Reason for Exam: shortness of breath Patient Location: E HR:68 bpm ECG Measurements Heart Rate 68 AXIS [place] 219 P 33 QRSd 141 QRS -14 QT 486 T 23 QTc 516 Conclusion Sinus rhythm...normal P axis, V-rate 60- 99 Paired ventricular premature complexes...sequence of 2 V complexes Borderline prolonged KY interval...KY >212, V-rate 50- 90 Right bundle branch block...QRSd>120, terminal axis(90,270)
--- NOTE | 2020-07-11 11:54 | ED.GENADUL_ITS ---
Discharge Plan Disposition Patient Disposition: HOME Condition: Stable Discharge Details Clinical Impression: Abdominal pain, Shortness of breath Primary Care Provider: Taz Collins ED Provider: Jose Miguel Remy Home Meds and New Rx's Prescriptions: Continued nitroglycerin 0.4 MG tablet, sublingual 0.4 mg Sublingual PRN PRNRF: 0 acetaminophen [Tylenol Arthritis Pain] 650 MG tablet extended release 1,300 mg PO Q6H PRN PRNQty: 0 RF: 0 aspirin [Aspir-81] 81 MG tablet,delayed release (DR/EC) 81 mg PO DAILY RF: 0 pantoprazole 40 mg Tablet,Delayed Release (Dr/Ec) 40 mg PO DAILY@0730 Qty: 30 RF: 0 allopurinol 100 MG tablet 100 mg PO DAILY Qty: 0 RF: 0 metoprolol succinate 25 MG tablet extended release 24 hr 100 mg PO DAILY Qty: 0 RF: 0 potassium chloride 20 mEq tablet extended release 20 meq PO DAILY RF: 0 metolazone 2.5 mg tablet See Rx Instructions .ROUTE .COMPLEX RF: 0 atorvastatin 40 mg tablet 80 mg PO DAILY RF: 0 furosemide 40 mg Tablet 40 mg PO BID@0830,1600 Qty: 60 RF: 0 Discharge Instructions Instructions: Abdominal Pain (ED) Additional Instructions: your lab work and cat scans did not show any concerning findings follow up with your primary care provider this week if you feel more ill, have worsening pain or persistent vomit return to the emergency department Medical Decision Making 79 yo male with multiple medical problems including cad, ischemic cardiomyophathy, hypertension, who comes in with chief compalint of left and mid abdomen pain that started this morning. He denies vomit, fevers, changes in urine or bowel habits. He denies any chest pressure but feels sometimes the pain moves to the left anterior chest. He is tender on exam to the mid and left upper abdomen, no distention on exam. He does note he feels mild shortness of breath but states this is chronic for him and unchanged. Multiple potential etiologies for his symptoms, will obtain labs and ct to evaluate for possible small bowel obstruction, pancreatitis and cholecystitis among other pathologies. Given his shortness of breath is chronic and more or less unchanged per his report feel it is likely related to his ischemic cardiomyopathy. Has no significant b lines in the lungs or pericardial effusion on bedside u/s. Will obtain cta to evaluate for PE as a potential cause of his shortness of breath labs show no acute abnormality from baseline, chronically elevated probnp, small effusions which he has frequently as well. Still no hypoxia here. He feels better and only has midl mid abdomen tenderness without guarding, CT shows no acute findings. Suspect this could be gastritis but will obtain delta troponin. pt resting comfortably in no distress laughing during repeat assessment with no abdomen tenderness now. Repeat troponin and ecg unchanged. Given pain resolved and reassuring workup feel he is safe for d/c and has f/u appt per him on Monday with pcp. He is comfortable with this plan and in agreement. Return precautions given Differential Diagnosis Differential Diagnosis: pancreatitis, esophagitis, sbo Imaging Data Radiologic Study: Attestation: I personally reviewed and interpreted this imaging study as follows: Imaging: CT Scan Radiologist's impression: IMPRESSION: 1. Findings suggestive of pulmonary arterial hypertension. No evidence of acute pulmonary embolus 2. Cardiomegaly. Coronary artery and vascular calcification. 3. Small bilateral effusions right greater than left with associated mild basilar atelectasis IMPRESSION: 1. Atherosclerotic plaque is noted within the abdominal aorta which is mildly enlarged approximately 2.9 cm in maximum diameter infrarenal aorta. 2. Diverticulosis without evidence of diverticulitis. 3. No other significant/acute findings identified. Lab Data Lab results reviewed: Yes I reviewed the patient's lab results. ECG Data Attestation: I personally reviewed and interpreted this ECG (s) as follows: Prior ECG tracings: available for review Interpretation: sinus rhythm rate of 68, pr 219, rbbbb, no acute st t wave ischemic findings 2nd ekg sinus rhythm, rate of 61, pr 227, no acute st t wave ischemic changes, pvc's HPI General Date/Time Provider Initiated Documentation: 07/11/20 11:46 . Limitations to Documentation: no limitations . Information obtained by: patient . History of Present Illness 79 year old M presents to the emergency department with the chief complaint of abdomen pain, described as moderate, Quality is described as stabbing and aching, and is localized to the abdomen. Patient reports no radiation. Patient started experiencing this hour(s) (3) and it has been constant. No relieving factors improve symptom(s), No exacerbating factors reported . Patient did receive the following treatments prior to arrival, none Related Data Home Medications Medication Instructions Recorded Confirmed nitroglycerin 0.4 mg SUBLINGUAL PRN PRN 12/31/12 07/11/20 acetaminophen [Tylenol Arthritis 1,300 mg PO Q6H PRN PRN #0 01/03/13 07/11/20 Pain] aspirin [Aspir-81] 81 mg PO DAILY 10/28/15 07/11/20 allopurinol 100 mg PO DAILY #0 tab 04/16/20 07/11/20 metoprolol succinate 100 mg PO DAILY #0 tab 04/16/20 07/11/20 pantoprazole 40 mg PO DAILY@0730 #30 tab 04/16/20 05/05/20 atorvastatin 80 mg PO DAILY 05/05/20 07/11/20 metolazone See Rx Instructions .ROUTE .COMPLEX 05/05/20 05/05/20 potassium chloride 20 meq PO DAILY 05/05/20 05/05/20 furosemide 40 mg PO BID@0830,1600 #60 tab 05/08/20 07/11/20 Previous Rx's Medication Instructions Recorded acetaminophen [Tylenol Arthritis 1,300 mg PO Q6H PRN PRN #0 01/03/13 Pain] allopurinol 100 mg PO DAILY #0 tab 04/16/20 metoprolol succinate 100 mg PO DAILY #0 tab 04/16/20 pantoprazole 40 mg PO DAILY@0730 #30 tab 04/16/20 furosemide 40 mg PO BID@0830,1600 #60 tab 05/08/20 Allergies Allergy/AdvReac Type Severity Reaction Status Date / Time amlodipine AdvReac Intermediate Swelling/Ed Unverified 07/11/20 11:57 lottie enalapril maleate AdvReac Intermediate cough Unverified 07/11/20 11:57 [From Vasotec] enalaprilat dihydrate AdvReac Intermediate cough Unverified 07/11/20 11:57 [From Vasotec] General RUPESH: 2 Review of Systems All systems reviewed & are unremarkable except as noted in HPI and below Constitutional Constitutional: Denies chills, Denies fever(s) and Denies weakness Cardiovascular Cardiovascular: Denies chest pain and Denies dyspnea Respiratory Respiratory: Denies cough and Denies dyspnea Gastrointestinal Gastrointestinal: Denies nausea and Denies vomiting Genitourinary Genitourinary: Denies dysuria Musculoskeletal Musculoskeletal: Denies joint swelling Integumentary/Breasts Skin/Breast: Denies rash Neurologic Neurologic: Denies weakness Psychiatric Psychiatric: Denies depression [facility] Medical History Bladder neck contracture CAD (coronary artery disease) CHF (congestive heart failure) EF 50% by echo in 03/19 Chronic kidney disease DNI (do not intubate) DNR (do not resuscitate) Hypercholesterolemia Hypertension Ischemic cardiomyopathy Palliative care patient POLST (Physician Orders for Life-Sustaining Treatment) Prostate cancer Surgical History History of heart artery stent S/P prostatectomy Status post THR (total hip replacement) Family History (Updated 05/08/20 @ 14:33 by Kamila Lewis MD) Son No problems noted. Social History (Updated 05/08/20 @ 14:35 by Kamila Lewis MD) Smoking/Tobacco Use Status: Former Tobacco Use Smoking risk assessment performed?: Yes Alcohol Intake: current Alcohol type: other Drug use: Never Substance use type: does not use Caregiver/Support person: Yes Communication Needs: Hard of Hearing and Corrective Lenses Education Level: high school Do you need help understanding health information?: Always Current gender identity: male How often do you talk on the phone with friends or family?: three or more times per week How often do you get together with friends or relatives?: three or more times per week Panel score (0-1 are the most socially isolated patients): 1 What type of physical activity do you participate in: walking Duration: 15-30 minutes/day Special deanna needs: No Seatbelt use: always Do you feel safe at home: Yes Do you feel safe in your relationship?: Yes Additional Social history: Son Berto is his main person who helps care for him. He is a , but was posted in [place] during the [employer] era. He has insurance with both medicare and [employer]. Exam Const General: no acute distress Orientation: alert HENOR Head: normal to inspection Ears: external ears normal General nose exam: external nose normal Mouth: moist mucous membranes Eyes General: appearance normal, both eyes and all related structures Neck Neck: normal visual inspection Resp Effort & Inspection: normal respiratory effort Cardio Rate: regular rate GI Palpation: soft Skin General skin exam: no rashes or lesions noted Neuro General: patient alert and patient oriented x3 Extrem General: normal to inspection Psych Mental Status: mental status grossly normal
[2020-07-11 12:19] LABS: Abs Immature Grans 0.02 10^3/uL (0.0-0.06); Absolute Basophil Count 0.05 10^3/uL (0.0-0.2); Absolute Eosinophil Count 0.14 10^3/uL (0.0-0.7); Absolute Lymphocyte Count 1.75 10^3/uL (1.2-3.4); Absolute Monocyte Count 0.83 10^3/uL (0.1-0.8); Absolute Neutrophil Count 6.77 10^3/uL (1.2-6.7); Basophils % 0.5; Eosinophils % 1.5; HCT 40.3 % (40.0-50.0); HGB 13.2 g/dL (13.5-17.5); Immature Grans % 0.2; Lymphocytes % 18.3; MCH 31.6 pg (27.0-33.0); MCHC 32.8 % (32.0-36.0); MCV 96.4 fL (80-95); MPV 9.1 fL (8.0-11.0); Monocytes % 8.7; Neutrophils % 70.8; Nucleated RBC 0 %; Platelet Count 324 10^3/uL (130-400); RBC 4.18 10^6/uL (4.36-5.78); RDW 14.2 % (11.8-14.1); RDW-SD 50.4 fL; WBC 9.56 10^3/uL (4.4-10.8)
[2020-07-11] MEDS: fentaNYL 100 MCG/2 ML VIAL 50 MCG IVP (12:19)
[2020-07-11 12:27] LABS: Lipase 144 U/L (73-393)
[2020-07-11 12:33] LABS: INR 1.1 (0.9-1.1); PTT Activated 26.4 sec (21.0-27.5); Prothrombin Time 10.8 sec (9.3-11.0)
[2020-07-11 12:41] LABS: ALT 34 U/L (16-63); AST 35 U/L (15-37); Albumin 3.7 g/dL (3.4-5.0); Alkaline Phosphatase 265 U/L (46-116); Anion Gap 7.6 mmol/L (3-11); BUN 40 mg/dL (7-18); Bilirubin, Total 0.8 mg/dL (0.2-1.0); CO2 30.4 mmol/L (21.0-32.0); CREATININE 1.4 mg/dL (0.70-1.30); Calcium 9.6 mg/dL (8.5-10.1); Chloride 101 mmol/L (98-107); Estimated GFR 48.89 (mL/min/1.73m2); Glucose 95 mg/dL (74-106); Sodium 139 mmol/L (136-145); TSH (W/Ref FT4) 2.97 uIU/mL (0.36-3.74); Total Protein 7.8 g/dL (6.4-8.2); Troponin I < 0.05 ng/mL (<0.06)
[2020-07-11] MEDS: Omnipaque 350 MG/ML 100 ML BTL IJ (13:00)
[2020-07-11] MEDS: Normal Saline - Diluent 50 ML VIAL IV (13:00)
--- NOTE | 2020-07-11 13:13 | DI.CT_ITS ---
Exam(s) CT CHEST PE ABD PELVIS W EXAM: CT CHEST PE ABD PELVIS W CLINICAL HISTORY: shortness of breath and abdomen pain. TECHNIQUE: Imaging Protocol: Axial CT angiography was performed with multi-slice acquisition and m ulti-planar and/or 3D reconstructions. CONTRAST MATERIAL: Intravenous: Omnipaque 350 Contrast volume:100 ml Oral: None COMPARISON: CT CT BRAIN NECK CTA from 03/28/2020 FINDINGS: CHEST: PULMONARY ARTERIES: There are no intra-arterial filling defects to suggest the presence of acute pulm onary emboli.. The diameter of the right main pulmonary arteries 3.5 cm. Diameter of the left main pulmonary arteries 2.7 cm. Diameter of the main pulmonary artery outflow tract is a 4.3 cm. No evid ence of saddle embolus. No arterial webbing evident. LUNGS: Motion artifact but no obvious pulmonary infarction. Small bilateral pleural effusions, right larger than left. No obvious ominous pulmonary nodules.. MEDIASTINUM: There is no hilar nor mediastinal adenopathy. Visualized thyroid unremarkable. CARDIAC: There is cardiomegaly. No pericardial effusion. Coronary artery calcification is noted. T his is in the LAD. There is no shift of the interventricular septum but there is some reflux of cont rast into the intrahepatic IVC and intrahepatic veins.Caliber of the thoracic aorta is within normal limits. OSSEOUS: No significant osseous lesions.. ABDOMEN: There is no ascites. LIVER: There are no focal hepatic lesions nor dilatation of intrahepatic ducts. GALLBLADDER/BILIARY: No obvious gallbladder pathology. CBD is not dilated. PANCREAS: No evidence of pancreatic mass nor dilatation of the pancreatic duct. SPLEEN: Spleen is not enlarged. There are no intrasplenic lesions. Splenic and portal veins are valencia nt. ADRENALS: There are no significant adrenal masses. KIDNEYS:There are multiple benign cysts in both kidneys. The largest cyst is in the left kidney and measures 2.7 by 2.6 cm. There is a 4 millimeter calcification in the lower pole of subcortical calci fication lower pole left kidney. No other renal calculi. No hydronephrosis. No calculi nor hydrone phrosis. No solid renal masses. ABDOMINAL AORTA: The abdominal aorta is atherosclerotic. There is a fusiform infrarenal abdominal ao rtic aneurysm. Maximum diameter is 3 cm. Arterial megaly continues into the common iliac arteries, both of which exhibit uniform diameters of 1.3 cm and there is also an element of arterial megaly in both external iliac arteries. No significant stenosis in these vessels. No prominent aneurysmal dil atation of the internal iliac arteries although these are also calcified with an element of arterial megaly. Largest diameter is at the origin of the right internal iliac artery which is 1 cm. LYMPH NODES: There is no retroperitoneal or para-aortic adenopathy. ABDOMINAL WALL/GI: No evidence of significant anterior abdominal wall hernia. No bowel obstruction. PELVIS: LYMPH NODES: There is no intrapelvic nor inguinal adenopathy. GI: No evidence of appendicitis.Sigmoid diverticulosis. No obvious acute diverticulitis. URINARY BLADDER: No calculi nor masses evident REPRODUCTIVE: Small prostate. OSSEOUS: There is a left hip prosthesis. Partial ankylosis of the right sacroiliac joint is noted. Left SI joint unremarkable. No significan t osseous lesions identified. IMPRESSION: 1. No evidence of acute pulmonary emboli nor pulmonary infarction. Prominence of the main pulmonary arteries suggest the presence of pulmonary artery hypertension. 2. Small bilateral pleural effusions, right larger than left. 3. Cardiomegaly. Coronary artery calcification. No pericardial effusion. 4. Atherosclerotic abdominal aorta with infrarenal abdominal aortic aneurysm exhibiting maximum diame ter 3 cm. There is also generalized arterial megaly of the common and external and internal iliac ar teries. No prominent focal aneurysms of these vessels nor tight stenosis. 5. Sigmoid diverticulosis without evidence of obvious acute diverticulitis. 6. Solitary 4-5 millimeter calcification in the cortex lower pole left kidney. Multiple bilateral r enal cysts. The largest of these measures 2.7 cm. There are no solid renal masses. No hydronephros is. 7. There is a left hip prosthesis. RADIATION DOSE DELIVERED: 1,142.57mGy.cm Total DLP DATA REPOSITORY: All CT scans at this facility are submitted to the National Radiology Data Registry (NRDR) Dose Index Registry (DIR) with the [employer] (ACR). RADIATION OPTIMIZATION: All CT scans at this facility use at least one of these dose optimization te chniques: automated exposure control; mA and/or kV adjustment per patient size (includes targeted exa ms where dose is matched to clinical indication); or iterative reconstruction.
[2020-07-11 13:33] LABS: NT-proBNP 12776 pg/mL (<300)
--- NOTE | 2020-07-11 14:11 | DI.VRAD_ITS ---
PROCEDURE INFORMATION: Exam: CTA Chest With Contrast Exam date and time: 07/11/2020 12:49 PM Age: 79 years old Clinical indication: Shortness of breath; Difficulty breathing or dyspnea; Patient HX: SOB, abdomen pain TECHNIQUE: Imaging protocol: Computed tomographic angiography of the chest with contrast. 3D rendering (Not supervised by radiologist): MIP and/or 3D reconstructed images were created by the technologist. Radiation optimization: All CT scans at this facility use at least one of these dose optimization techniques: automated exposure control; mA and/or kV adjustment per patient size (includes targeted exams where dose is matched to clinical indication); or iterative reconstruction. Contrast material: OMNI-PAQUE 350; Contrast volume: 100 ml; Contrast route: INTRAVENOUS (IV); COMPARISON: CT CHEST FOR PULMONARY EMBOLUS 09/20/2016 4:18 PM FINDINGS: Pulmonary arteries: There is enlargement of the main pulmonary arterial segment measuring over 4 cm in diameter suspicious for pulmonary arterial hypertension. Right main pulmonary artery measures approximately 3.5 cm in maximum diameter on series 5, image 246. The no definite intraluminal filling defect or intravascular thrombus is identified to suggest acute pulmonary embolus. Aorta: The thoracic aorta is mildly ectatic, calcified. It is non-opacified with contrast limiting evaluation for dissection but no definite acute aortic findings are identified. Lungs: Evaluation of the lungs is somewhat degraded by patient motion. There is mild atelectasis at the lung bases. There is no lobar consolidation identified. There is no overt CHF. There is no evidence of an endobronchial lesion. Pleural spaces: There are small bilateral pleural effusions larger on the right than the left. Heart: The heart is enlarged. There is 4 chamber cardiac enlargement. There is no significant pericardial effusion. Coronary artery calcification is noted. Lymph nodes: There are small mediastinal nodes which do not appear enlarged by size criteria. Bones/joints: Degenerative changes are seen in the spine. There is no acute bony abnormality Soft tissues: Subcutaneous soft tissues are unremarkable IMPRESSION: 1. Findings suggestive of pulmonary arterial hypertension. No evidence of acute pulmonary embolus 2. Cardiomegaly. Coronary artery and vascular calcification. 3. Small bilateral effusions right greater than left with associated mild basilar atelectasis. PROCEDURE INFORMATION: Exam: CT Abdomen And Pelvis With Contrast Exam date and time: 07/11/2020 12:49 PM Age: 79 years old Clinical indication: Shortness of breath; Difficulty breathing or dyspnea; Patient HX: SOB, abdomen pain TECHNIQUE: Imaging protocol: Computed tomography of the abdomen and pelvis with contrast. 3D rendering (Not supervised by radiologist): MIP and/or 3D reconstructed images were created by the technologist. Radiation optimization: All CT scans at this facility use at least one of these dose optimization techniques: automated exposure control; mA and/or kV adjustment per patient size (includes targeted exams where dose is matched to clinical indication); or iterative reconstruction. Contrast material: OMNI-PAQUE 350; Contrast volume: 100 ml; Contrast route: INTRAVENOUS (IV); COMPARISON: CT CHEST FOR PULMONARY EMBOLUS 09/20/2016 4:18 PM FINDINGS: Liver: No focal intrahepatic abnormality is identified. Gallbladder and bile ducts: There is no evidence of cholelithiasis. There is no gallbladder wall thickening or pericholecystic fluid. There is no evidence of biliary ductal dilatation Pancreas: Pancreas is unremarkable Spleen: No significant abnormality. Adrenal glands: Adrenals are unremarkable Kidneys and ureters: Kidneys are lobulated in contour. There are bilateral renal cortical cysts noted bilaterally. Largest is seen within the left mid kidney measuring approximately 2.6 cm on series 13, image 331. There is a nonspecific calcification at the lower pole of the left kidney which appears cortical in location. No radiopaque calculi are identified. There is no evidence of hydronephrosis. Renal artery calcification is again noted. Stomach and bowel: Evaluation of the bowel is limited without oral contrast but there is no evidence of bowel obstruction. There is no evidence of discrete mass or pneumatosis. There is colonic diverticulosis most prominently involving the sigmoid colon but there are no findings to suggest acute diverticulitis. Appendix: There is no evidence of acute appendicitis Intraperitoneal space: No significant ascites is identified. There is no evidence of free intraperitoneal air. Vasculature: The abdominal aorta is calcified. There is plaque at the origins of the celiac, SMA. There is some narrowing of the SMA at its origin but the SMA origin is patent. Plaque is seen at the renal artery origins which are also patent. There is mild enlargement of the infrarenal abdominal aorta which measures approximately 2.9 cm in its maximum AP diameter as measured on sagittal reformatted image 58. There is plaque involving the common, internal and external iliac arteries bilaterally. Lymph nodes: No significant adenopathy Urinary bladder: Unremarkable as visualized. Reproductive: Unremarkable as visualized. Bones/joints: There are findings consistent with mild lumbar spondylosis, degenerative disc disease but no acute bony abnormality is identified. Left hip replacement is noted Soft tissues: There is mild fatty enlargement of the left inguinal canal. Subcutaneous soft tissues are otherwise unremarkable. IMPRESSION: 1. Atherosclerotic plaque is noted within the abdominal aorta which is mildly enlarged approximately 2.9 cm in maximum diameter infrarenal aorta. 2. Diverticulosis without evidence of diverticulitis. 3. No other significant/acute findings identified. Dictated and Authenticated by: Sabrina Garcia MD. Ordering:KWAN Gillespie MD
[2020-07-11 14:23] LABS: Bilirubin Negative (Negative); Blood Negative (Negative); Clarity Clear (Clear); Glucose Negative (Negative); Ketones Negative (Negative); Leukocyte Esterase Negative (Negative); Nitrite Negative (Negative); Specific Gravity 1.015 (1.005-1.025); Urobilinogen 0.2 EU/dL (Up TO 0.2); pH 6.5 (5-8)
--- NOTE | 2020-07-11 14:45 | RT.EKG_ITS ---
APPROVED REPORT Exam: Resting ECG Reason for Exam: chest pain Patient Location: E HR:61 bpm ECG Measurements Heart Rate 61 AXIS OR 227 P 67 QRSd 138 QRS -18 QT 455 T 18 QTc 459 Conclusion Sinus rhythm...normal P axis, V-rate 60- 99 Ventricular bigeminy...bigeminy string>4 w/ V complexes Prolonged OR interval...OR >220, V-rate 50- 90 Right bundle branch block...QRSd>120, terminal axis(90,270)
[2020-07-11 15:45] LABS: Troponin I < 0.05 ng/mL (<0.06)
== END 2020-07-11 16:24 | disposition home or self-care (01) ==
PROVIDERS: Emergency Provider Emergency Medicine; PCP Internal Medicine
DX: R06.02 Shortness of breath (principal); R10.13 Epigastric pain; J90 Pleural effusion, not elsewhere classified
CPT/HCPCS: 36415; 71275; 74177; 80053; 83690; 93005; 96374; 99285; 81003; 83880; 84443; 84484; 85025; 85610; 85730; 93010; J3010; J3490

== ENCOUNTER 2020-07-23 07:39 | Emergency (ER) | payer MEDICARE, OTHER, SELFPAY ==
[2020-07-23] VITALS (41 sets, daily range): BP systolic 132–187; BP diastolic 76–108; PULSE 48–131; RESP 11–29; TEMP 36.2; O2SAT 88–96
--- NOTE | 2020-07-23 07:30 | RT.EKG_ITS ---
APPROVED REPORT Exam: Resting ECG Reason for Exam: dizzy Patient Location: E HR:64 bpm ECG Measurements Heart Rate 64 AXIS NM 257 P 43 QRSd 141 QRS -19 QT 470 T 20 QTc 484 Conclusion Sinus rhythm...normal P axis, V-rate 60- 99 Atrial premature complexes...SV complexes w/ short R-R intvls Prolonged NM interval...NM >220, V-rate 50- 90. No STEMI. No significant change compared to previous. I have reviewed and interpreted ECG and agree with software generated interpretation. Right bundle branch block...QRSd>120, terminal axis(90,270)
--- NOTE | 2020-07-23 08:00 | DI.CT_ITS ---
Exam(s) CT BRAIN NECK CTA EXAM: CT BRAIN NECK CTA CLINICAL HISTORY: dizziness, r/o acute cva. TECHNIQUE: Imaging Protocol: Axial CT angiography was performed with multi-slice acquisition and mu lti-planar and/or 3D reconstructions. CONTRAST MATERIAL: Intravenous: Omnipaque 350 Contrast volume:85 COMPARISON: CT CT CHEST PE ABD PELVIS W from 07/11/2020 FINDINGS: CTA Neck W: Aortic arch anatomy: The aortic arch anatomy is conventional. Anterior circulation: Both common carotid arteries exhibit normal diameters up to the level of the thyroid lobes. The dist al half of the left common carotid artery exhibits calcified and noncalcified plaque on the medial wa ll with approximately 50 percent stenosis and there is heavy calcified plaque at the left carotid bif urcation proximal internal carotid artery with critical stenosis of the left ICA at this level.. The se vessels faintly opacified in the carotid canals-skull base. The right common carotid artery exhibits calcified plaque distally and in the proximal ICA with appro ximately 50 percent stenosis.. The right ICA above this level is patent tortuous. Is demonstrated b e patent in the skull base-carotid canal as well as within the cavernous sinus. Posterior circulation: Both vertebral arteries originate off the subclavian arteries and there is calcified plaque at their origins. These vessels are demonstrated to be patent within the foramen transversarium and of approx imately equal luminal diameter. No evidence of intraluminal thrombus nor dissection. At the skull b ase there is mural calcification in the left vertebral artery. Both vertebral arteries are shown to contribute to the formation of the basilar artery at the skull base. CTA Brain W: Anterior circulation: There is asymmetric opacification of the intracavernous internal carotid arteries. Right is opacifie d normally left is less than typically opacified which is probably related to the down stream finding s described below. Nevertheless, there is flow in the supraclinoid aspect of both internal carotid a rteries. Both middle cerebral arteries are demonstrated to be patent. Both A1 segments are patent. Anterior cerebral arteries share a common origin and thereafter split. There is no aneurysm at the level of the anterior aspect of the [id number]-[id number]. Posterior circulation: Both vertebral arteries contribute to the formation of the basilar artery at the skull base. Basilar artery ascends with mild dolichoectasia. Distally it is are distally both superior cerebellar arter ies are opacified and above this level the basilar artery terminates as patent bilateral posterior ce rebral arteries. There is no aneurysm of the tip of the basilar artery. CT BRAIN: There is no evidence of intracranial hemorrhage, mass effect, or shift of midline structures. There are no extra-axial fluid collections. Ventricles are not enlarged or shifted and there is no blood w ithin the ventricular system nor within the basal cisterns. There are no ring enhancing lesions in t he brain and no abnormal meningeal enhancement. Symmetrical atrophy noted. IMPRESSION: 1. Quality of this study is less than optimal as apparently the same contrast bolus was used to perfo rm this study as well as a pulmonary artery embolism CTA study 2. There is significant calcified and noncalcified plaque in the distal common carotid arteries and both carotid bulbs and proximal internal carotid arteries. There is a critical stenosis versus short segment occlusion in the with reconstitution of the left internal carotid artery in the neck. There is moderate stenosis in the proximal right ICA in the neck. 3. In the cavernous sinuses there is differential density (left less than right) of the intracavern ous internal carotid arteries which is most probably related to the critical stenosis or occlusion in the left internal carotid artery in the neck. Brain MRI and MRA is recommended. 4. No ring enhancing lesions in the brain. No abnormal meningeal enhancement. No evidence of intra cranial hemorrhage. RADIATION DOSE DELIVERED: 2,212.48mGy.cm Total DLP DATA REPOSITORY: All CT scans at this facility are submitted to the National Radiology Data Registry (NRDR) Dose Index Registry (DIR) with the [employer] ([employer]). RADIATION OPTIMIZATION: All CT scans at this facility use at least one of these dose optimization te chniques: automated exposure control; mA and/or kV adjustment per patient size (includes targeted exa ms where dose is matched to clinical indication); or iterative reconstruction.
--- NOTE | 2020-07-23 08:00 | DI.CT_ITS ---
Exam(s) CT CHEST PE CTA EXAM: CT CHEST PE CTA CLINICAL HISTORY: shortness of breath, dizziness, r/o PE. TECHNIQUE: Imaging Protocol: CT angiography of the chest was performed using pulmonary embolus saundra col. Multi planar reconstructions were performed. CONTRAST MATERIAL: Intravenous: Omnipaque 350 Contrast volume: 100 cc COMPARISON: CT CT BRAIN NECK CTA from 07/23/2020 FINDINGS: CHEST: PULMONARY ARTERIES: There are no intraluminal filling defects to suggest acute pulmonary emboli. LUNGS: There is a moderate-sized pleural effusion on the right side which may be partially loculated superiorly. There is volume loss atelectasis in the basal segments of the right lower lobe. Some in filtrate in the lower lobe noted. No obvious nodules. In the opposite-left lung there are mild increased markings but no confluent infiltrates. Very small amount of pleural fluid. MEDIASTINUM: There is no hilar nor mediastinal adenopathy. Visualized thyroid unremarkable. CARDIAC: There is cardiomegaly.No pericardial effusion. Caliber of the thoracic aorta is upper mendez l. There is no significant shift of the interventricular septum. Slight prominence in size of the m ain pulmonary arteries. PARTIALLY VISUALIZED UPPERMOST ABDOMEN: Somewhat abnormal appearance of the partially included gallbl adder, possibly significant. Partially included kidneys reveal small cortical cysts. OSSEOUS: No significant osseous lesions.. IMPRESSION: 1. No evidence of acute pulmonary emboli. No evidence of pulmonary infarction. 2. Moderate size right-sided pleural effusion with volume loss atelectasis in the right lower lobe ba jairo segments. Superior aspect of this right pleural effusion may be partially loculated. There is a tiny amount of pleural fluid on the opposite-left side. 3. Mild infiltrate in the right lung base. No ominous pulmonary nodules evident. No obvious intrath oracic adenopathy. Cardiomegaly. Also slight prominence of the diameter of the pulmonary arteries which may indicate an element of pulmonary hypertension RADIATION DOSE DELIVERED: 415.38mGy.cm Total DLP DATA REPOSITORY: All CT scans at this facility are submitted to the National Radiology Data Registry (NRDR) Dose Index Registry (DIR) with the [employer] ([employer]). RADIATION OPTIMIZATION: All CT scans at this facility use at least one of these dose optimization te chniques: automated exposure control; mA and/or kV adjustment per patient size (includes targeted exa ms where dose is matched to clinical indication); or iterative reconstruction.
--- NOTE | 2020-07-23 08:02 | ED.GENADUL_ITS ---
Discharge Plan Disposition Patient Disposition: HOME Condition: Improving Discharge Details Clinical Impression: Dizziness, Pleural effusion on right Primary Care Provider: Taz Collins ED Provider: Renae Tapia Home Meds and New Rx's Prescriptions: Continued nitroglycerin 0.4 MG tablet, sublingual 0.4 mg Sublingual PRN PRNRF: 0 acetaminophen [Tylenol Arthritis Pain] 650 MG tablet extended release 1,300 mg PO Q6H PRN PRNQty: 0 RF: 0 aspirin [Aspir-81] 81 MG tablet,delayed release (DR/EC) 81 mg PO DAILY RF: 0 pantoprazole 40 mg Tablet,Delayed Release (Dr/Ec) 40 mg PO DAILY@0730 Qty: 30 RF: 0 allopurinol 100 MG tablet 100 mg PO DAILY Qty: 0 RF: 0 metoprolol succinate 25 MG tablet extended release 24 hr 100 mg PO DAILY Qty: 0 RF: 0 potassium chloride 20 mEq tablet extended release 20 meq PO DAILY RF: 0 metolazone 2.5 mg tablet See Rx Instructions .ROUTE .COMPLEX RF: 0 atorvastatin 40 mg tablet 80 mg PO DAILY RF: 0 furosemide 40 mg Tablet 40 mg PO BID@0830,1600 Qty: 60 RF: 0 Discharge Instructions Instructions: Pleural Effusion (ED), Dizziness (ED) Additional Instructions: There was a small increase in your fluid level in your right lung. Be sure to take your Lasix as directed. Follow-up with your primary care doctor in 1 week for reevaluation and for outpatient carotid Doppler for further evaluation of your carotid stenosis. Return to the emergency department with any worsening or new concerning symptoms if you develop any worsening dizziness, shortness of breath or any other concerns.. Discharge Data Discharge Date/Time-TO BE ENTERED AT DEPARTURE: 07/23/20 13:57 Discharge Physician: Renae Tapia Medical Decision Making 79-year-old male with a history of coronary artery disease with coronary stents, hypertension, hyperlipidemia, prostate cancer, obesity presents for dizziness this morning. He states he has a history of chronic shortness of breath and states this is no worse than usual. EKG notes a rate of 64, sinus, PACs, no STEMI, no change from previous. Blood pressure hypertensive, he is afebrile and appears nontoxic. No focal deficits. Considering patient's age and comorbidities, consider arrhythmia, electrolyte abnormality, CVA, PE, dehydration, UTI, etc. Will place an IV, small bolus IV fluids, screening labs, urinalysis, CTA head and neck and CT chest to rule out PE. Of note, patient was here 12 days ago for abdominal pain and had a negative CT chest abdomen pelvis. Labs and imaging reviewed. Normal white blood cell count. Hemoglobin 11. Troponin negative. 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 CT chest notes a moderate right- sided pleural effusion and a mild infiltrate but no PE. MRI/MRA brain recommended per radiology. Clinically patient does not appear consistent with pneumonia as he has no complaint of cough, sputum production with normal white blood cell count. Patient complained of some shortness of breath while in the room. Oxygen saturation high 80s to low 90s. Patient placed on nasal cannula oxygen and fluids stopped. Patient has received a total of 200 cc normal saline bolus. MRI brain/MRA brain/neck notes left ICA occlusion with reconstitution at the supraclinoid aspect. Imaging pushed to [facility] neurology who reviewed the images and feel with patient's symptom presentation that this is not consistent with acute CVA. Recommended outpatient carotid Doppler for further evaluation. Patient was able to eat and drink here and denied any return of dizziness and felt good to go home. Repeat troponin was negative and the repeat EKG was unchanged. There is a small increase in his right-sided pleural effusion, his dose of Lasix was given here. Do not see any acute indication for admission. He was advised to return here immediately with any worsening or new concerning symptoms. Advised to follow-up with the primary for reevaluation and outpatient carotid Doppler. Results and case discussed with patient's son Domingo over the phone. Medical Records Medical records reviewed: Yes I reviewed the patient's medical records. Imaging Data Radiologic Study: Radiologist's impression: ?CT CHEST PE CTA CLINICAL HISTORY: ? shortness of breath, dizziness, r/o PE. ? TECHNIQUE:? Imaging Protocol: CT angiography of the chest was performed using pulmonary embolus protocol.? Multi planar reconstructions were performed. CONTRAST MATERIAL:? Intravenous: Omnipaque 350 Contrast volume: 100 cc COMPARISON:? CT CT BRAIN ? NECK CTA from 07/23/2020 FINDINGS: CHEST: PULMONARY ARTERIES: There are no intraluminal filling defects to suggest acute pulmonary emboli. LUNGS: There is a moderate-sized pleural effusion on the right side which may be partially loculated superiorly.? There is volume loss atelectasis in the basal segments of the right lower lobe.? Some infiltrate in the lower lobe noted.? No obvious nodules. In the opposite-left lung there are mild increased markings but no confluent infiltrates.? Very small amount of pleural fluid. MEDIASTINUM: There is no hilar nor mediastinal adenopathy. Visualized thyroid unremarkable. CARDIAC: There is cardiomegaly.No pericardial effusion.? Caliber of the thoracic aorta is upper normal.? There is no significant shift of the interventricular septum.? Slight prominence in size of the main pulmonary arteries. PARTIALLY VISUALIZED UPPERMOST ABDOMEN: Somewhat abnormal appearance of the partially included gallbladder, possibly significant.? Partially included kidneys reveal small cortical cysts. OSSEOUS: No significant osseous lesions.. IMPRESSION: 1. No evidence of acute pulmonary emboli.? No evidence of pulmonary infarction. 2. Moderate size right-sided pleural effusion with volume loss atelectasis in the right lower lobe basal segments.? Superior aspect of this right pleural effusion may be partially loculated.? There is a tiny amount of pleural fluid on the opposite-left side. 3. Mild infiltrate in the right lung base.? No ominous pulmonary nodules evident.? No obvious intrathoracic adenopathy. Cardiomegaly.? Also slight prominence of the diameter of the pulmonary arteries which may indicate an element of pulmonary hypertension. CT BRAIN/NECK CTA CLINICAL HISTORY: ? dizziness, r/o acute cva. ? TECHNIQUE:? Imaging Protocol:? Axial CT angiography was performed with multi- slice acquisition and multi-planar and/or 3D reconstructions. CONTRAST MATERIAL:? Intravenous: Omnipaque 350 Contrast volume:85 COMPARISON:? CT CT CHEST PE ABD ? PELVIS W from 07/11/2020 FINDINGS: CTA Neck W: Aortic arch anatomy: The aortic arch anatomy is conventional. Anterior circulation: Both common carotid arteries exhibit normal diameters up to the level of the thyroid lobes.? The distal half of the left common carotid artery exhibits calcified and noncalcified plaque on the medial wall with approximately 50 percent stenosis and there is heavy calcified plaque at the left carotid bifurcation proximal internal carotid artery with critical stenosis of the left ICA at this level..? These vessels faintly opacified in the carotid canals-skull base. The right common carotid artery exhibits calcified plaque distally and in the proximal ICA with approximately 50 percent stenosis..? The right ICA above this level is patent tortuous.? Is demonstrated be patent in the skull base-carotid canal as well as within the cavernous sinus. Posterior circulation: Both vertebral arteries originate off the subclavian arteries and there is calcified plaque at their origins.? These vessels are demonstrated to be patent within the foramen transversarium and of approximately equal luminal diameter.? No evidence of intraluminal thrombus nor dissection.? At the skull base there is mural calcification in the left vertebral artery.? Both vertebral arteries are shown to contribute to the formation of the basilar artery at the skull base. CTA Brain W: Anterior circulation: There is asymmetric opacification of the intracavernous internal carotid arteries.? Right is opacified normally left is less than typically opacified which is probably related to the down stream findings described below.? Nevertheless, there is flow in the supraclinoid aspect of both internal carotid arteries.? Both middle cerebral arteries are demonstrated to be patent.? Both A1 segments are patent.? Anterior cerebral arteries share a common origin and thereafter split.? There is no aneurysm at the level of the anterior aspect of the [id number]. Posterior circulation: Both vertebral arteries contribute to the formation of the basilar artery at the skull base.? Basilar artery ascends with mild dolichoectasia.? Distally it is are distally both superior cerebellar arteries are opacified and above this level the basilar artery terminates as patent bilateral posterior cerebral arteries.? There is no aneurysm of the tip of the basilar artery. CT BRAIN: There is no evidence of intracranial hemorrhage, mass effect, or shift of midline structures.? There are no extra-axial fluid collections.? Ventricles are not enlarged or shifted and there is no blood within the ventricular system nor within the basal cisterns.? There are no ring enhancing lesions in the brain and no abnormal meningeal enhancement. Symmetrical atrophy noted. IMPRESSION: 1. Quality of this study is less than optimal as apparently the same contrast bolus was used to perform this study as well as a pulmonary artery embolism CTA study. 2.? There is significant calcified and noncalcified plaque in the distal common carotid arteries and both carotid bulbs and proximal internal carotid arteries.? There is a critical stenosis versus short segment occlusion in the with reconstitution of the left internal carotid artery in the neck.? There is moderate stenosis in the proximal right ICA in the neck. 3. ? In the cavernous sinuses there is differential density (left less than right) of the intracavernous internal carotid arteries which is most probably related to the critical stenosis or occlusion in the left internal carotid artery in the neck.? Brain MRI and MRA is recommended. 4.? No ring enhancing lesions in the brain.? No abnormal meningeal enhancement.? No evidence of intracranial hemorrhage. MR BRAIN WO CLINICAL HISTORY:? L ICA occlusion, r/o acute cva TECHNIQUE:? Multiplanar multisequence MRI of the brain was performed. COMPARISON:? Prior CT scan was reviewed FINDINGS: CEREBRAL PARENCHYMA: There is no evidence of intracranial hemorrhage, mass effect, or shift of midline structures.? Ventricles are not enlarged or shifted.? There is symmetrical atrophy.? However, extra-axial spaces which are symmetrical over the convexities may reflect hygromas. There is no significant focal signal abnormality in the cerebellar hemispheres nor within the mary ann, midbrain, and thalami. There is mild periventricular white matter signal abnormality consistent with chronic small vessel disease.? There is no abnormal signal on diffusion imaging to suggest acute ischemic event. There is no significant focal signal abnormality evident on diffusion imaging to suggest acute ischemic event. PITUITARY GLAND: No mass nor parasellar abnormality. No obvious abnormality in the cavernous sinuses. FLOW VOIDS: There is deficient flow-void in the left internal carotid artery within the skull base and left cavernous sinus with reconstitution of flow void at the supraclinoid aspect of the internal carotid artery.? Flow void in the opposite-right internal carotid artery in the brain is normal. PARANASAL SINUSES: Mild mucosal thickening in the right maxillary sinus noted.? ORBITS: No obvious findings. IMPRESSION: 1. There is deficient flow-void within the left internal carotid artery in the skull base and left cavernous sinus with reconstitution of flow void in this vessel left supraclinoid aspect. 2. No evidence of abnormal signal on diffusion imaging to suggest acute infarct at this time. 3. There is mild periventricular signal abnormality on FLAIR and T2 imaging suggesting chronic small vessel ischemic changes.? There is no evidence of intracranial hemorrhage. 4. Moderate symmetrical atrophy with suggestion of possible symmetrical small bilateral convexity hygromas. MR ANGIO BRAIN WO CLINICAL HISTORY:? L ICA occlusion, r/o cva TECHNIQUE:? Magnetic resonance angiography of the brain performed without IV contrast on a 1.5 frieda unit using [id number] sequence. COMPARISON:? Brain CT scan was reviewed also MRI FINDINGS: ANTERIOR CIRCULATION: There is normal flow signal seen within the right internal carotid artery in the skull base and intracavernous aspect.? However, on the left side there is significantly diminished flow signal within the left internal carotid artery in the carotid canal skull base and intracavernous with reconstituted flow signal in the supraclinoid aspect of the left internal carotid artery..? Both middle cerebral arteries appear patent although with better flow signal on the right than the left but no evidence of obvious intraluminal thrombus in the middle cerebral arteries. The right A1 segment is patent.? Left A1 segment exhibits thin flow signal.? Both anterior cerebral arteries appear patent.? No aneurysm at the level of the anterior [id number]. POSTERIOR CIRCULATION: The basilar artery is formed at the skull base by contribution from both vertebral arteries.? The basilar artery ascends with normal luminal diameter.? Distally it terminates as patent bilateral posterior cerebral arteries.? Below this level the superior cerebellar arteries are demonstrated as thin vessels.? There is no evidence of aneurysm at the tip of the basilar artery nor elsewhere in the [id number]. IMPRESSION: 1. There is significant decreased flow in the left internal carotid artery in the skull base and left cavernous sinus.? Flow is reconstituted at the left supraclinoid level. 2. Patent posterior circulation. MR ANGIO NECK WO CLINICAL HISTORY: ? L ICA occlusion, r/o acute cva. ? TECHNIQUE:? Ntve-yy-[id number] sequence performed on a 1.5 frieda unit CONTRAST MATERIAL:? None COMPARISON:? CT scan earlier same day reviewed FINDINGS: Quality of study less than optimal due to motion artifact. There is significant disease of the level of the carotid bifurcations bilaterally. This more prominent on the left side where there appears to be occlusion of the left internal carotid artery just beyond its origin. On the opposite-right side there is some narrowing but no occlusion of the proximal ICA. In the posterior circulation both vertebral arteries are patent without intraluminal thrombus nor dissection. Both vertebral arteries contribute to the formation of the basilar artery at the skull base. IMPRESSION: Suboptimal study but there appears to be occlusion of the left internal carotid artery at its origin. Moderate stenosis in the proximal right internal carotid artery. Both vertebral arteries are patent and contribute to the formation of the patent basilar artery at the skull base. ECG Data Attestation: I personally reviewed and interpreted this ECG (s) as follows: Interpretation: #1 -- Rate of 64, sinus, prolonged LA interval, PACs, RBBB. No acute ST elevation or depression. #2 -- Rate of 55, sinus, prolonged LA interval, RBBB. No acute ST elevation or depression. HPI General Mode of arrival: ambulatory . Date/Time Provider Initiated Documentation: 07/23/20 07:50 . Limitations to Documentation: no limitations . Information obtained by: patient . HPI Narrative: Patient is a 79-year-old male with a history of prostate cancer, coronary artery disease, COPD, gout, hypertension, SC, obesity with coronary stents who presents to the ED with complaint of dizziness this morning. Patient states he was sitting at home when he leaned forward and felt a dizzy sensation. He states he nearly fell forward and felt like he was near to passing out but did not lose consciousness and did not fall. Patient states he does have a history of chronic shortness of breath that is worse with exertion but states this is no worse than usual today. He denies any dizziness at present but states if he gets up he feels it will return. He denies any headache, blurry vision, chest pain, cough, abdominal pain, nausea, vomiting, diarrhea or urinary symptoms. Of note, patient was seen here Related Data Home Medications Medication Instructions Recorded Confirmed nitroglycerin 0.4 mg SUBLINGUAL PRN PRN 12/31/12 07/23/20 acetaminophen [Tylenol Arthritis 1,300 mg PO Q6H PRN PRN #0 01/03/13 07/23/20 Pain] aspirin [Aspir-81] 81 mg PO DAILY 10/28/15 07/23/20 allopurinol 100 mg PO DAILY #0 tab 04/16/20 07/23/20 metoprolol succinate 100 mg PO DAILY #0 tab 04/16/20 07/23/20 pantoprazole 40 mg PO DAILY@0730 #30 tab 04/16/20 07/23/20 atorvastatin 80 mg PO DAILY 05/05/20 07/23/20 metolazone See Rx Instructions .ROUTE .COMPLEX 05/05/20 05/05/20 potassium chloride 20 meq PO DAILY 05/05/20 05/05/20 furosemide 40 mg PO BID@0830,1600 #60 tab 05/08/20 07/23/20 Previous Rx's Medication Instructions Recorded acetaminophen [Tylenol Arthritis 1,300 mg PO Q6H PRN PRN #0 01/03/13 Pain] allopurinol 100 mg PO DAILY #0 tab 04/16/20 metoprolol succinate 100 mg PO DAILY #0 tab 04/16/20 pantoprazole 40 mg PO DAILY@0730 #30 tab 04/16/20 furosemide 40 mg PO BID@0830,1600 #60 tab 05/08/20 Allergies Allergy/AdvReac Type Severity Reaction Status Date / Time amlodipine AdvReac Intermediate Swelling/Ed Unverified 07/23/20 07:48 lottie enalapril maleate AdvReac Intermediate cough Unverified 07/23/20 07:48 [From Vasotec] enalaprilat dihydrate AdvReac Intermediate cough Unverified 07/23/20 07:48 [From Vasotec] General Stated Complaint: Dizzy/Sync RUPESH: 3 Review of Systems All systems reviewed & are unremarkable except as noted in HPI and below Constitutional Constitutional: Reports as per HPI, Denies chills and Denies fever(s) Eyes Eyes: Denies blurry vision ENT Ears, Nose, Mouth, and Throat: Reports dizziness, Denies sore throat and Denies throat swelling Cardiovascular Cardiovascular: Denies chest pain and Denies dyspnea Respiratory Respiratory: Denies cough and Denies dyspnea Gastrointestinal Gastrointestinal: Denies abdominal pain, Denies diarrhea and Denies vomiting Genitourinary Genitourinary: Denies hematuria and Denies dysuria Musculoskeletal Musculoskeletal: Denies back pain and Denies numbness Integumentary/Breasts Skin/Breast: Denies lesions and Denies rash Neurologic Neurologic: Reports dizziness, Denies localized weakness and Denies numbness Allergic/Immunologic Allergic/Immunologic: Denies throat swelling REPLACED BY [facility] Medical History Bladder neck contracture CAD (coronary artery disease) CHF (congestive heart failure) EF 50% by echo in 03/19 Chronic kidney disease DNI (do not intubate) DNR (do not resuscitate) Hypercholesterolemia Hypertension Ischemic cardiomyopathy Palliative care patient POLST (Physician Orders for Life-Sustaining Treatment) Prostate cancer Surgical History History of heart artery stent S/P prostatectomy Status post THR (total hip replacement) Family History (Updated 05/08/20 @ 14:33 by Kamila Lewis MD) Son No problems noted. Social History (Updated 05/08/20 @ 14:35 by Kamila Lewis MD) Smoking/Tobacco Use Status: Former Tobacco Use Smoking risk assessment performed?: Yes Alcohol Intake: current Alcohol type: other Drug use: Never Substance use type: does not use Caregiver/Support person: Yes Communication Needs: Hard of Hearing and Corrective Lenses Education Level: high school Do you need help understanding health information?: Always Current gender identity: male How often do you talk on the phone with friends or family?: three or more times per week How often do you get together with friends or relatives?: three or more times per week Panel score (0-1 are the most socially isolated patients): 1 What type of physical activity do you participate in: walking Duration: 15-30 minutes/day Special deanna needs: No Seatbelt use: always Do you feel safe at home: Yes Do you feel safe in your relationship?: Yes Additional Social history: Son Berto is his main person who helps care for him. He is a , but was posted in [place] during the [employer] era. He has insurance with both medicare and [employer]. Exam Const General: cooperative, healthy appearing and no acute distress HENMT Head: normal to inspection Ears: hearing grossly normal bilaterally, external ears normal and TM's normal bilaterally Face and sinus: normal facial exam Mouth: oral mucosae normal Eyes General: appearance normal, both eyes and all related structures Pupils: PERRL EOM: EOM intact bilaterally Neck Neck: normal visual inspection and No submandibular swelling Lymphatic: no lymphadenopathy noted Chest Chest: normal inspection of the chest and no tenderness Resp Effort & Inspection: normal respiratory effort and able to speak in complete sentences Auscultation: clear to auscultation bilaterally Cardio Rate: regular rate Rhythm: regular rhythm GI Inspection: normal to inspection Palpation: soft, not firm, not rigid and nontender Auscultation: normal bowel sounds Skin General skin exam: no rashes or lesions noted Neuro General: patient alert, patient awake and patient oriented x3 Cognition: normal cognition Speech: speech normal Motor: muscle tone normal throughout Sensory Exam: no sensory deficits noted Extrem General: normal to inspection, full ROM, capillary refill normal, no calf tenderness bilaterally and no edema Psych Appearance: grossly normal Mental Status: mental status grossly normal Speech and Movement: speech and movement normal Affect: normal affect Course Vital Signs Vital signs: Vital Signs Temperature 97.2 F L 0527/21 07:43 Pulse 68 07/23/20 07:43 Respiratory Rate 18 07/23/20 07:43 Blood Pressure 187/86 H 07/23/20 07:43 Pulse Oximetry 93 07/23/20 07:43 Temperature 97.2 F L 07/23/20 07:43 Pulse 68 07/23/20 07:43 Respiratory Rate 18 07/23/20 07:54 Respiratory Effort 07/23/20 07:54 Respiratory Depth Normal 07/23/20 07:54 Respiratory Pattern Normal 07/23/20 07:54 Blood Pressure 187/86 H 07/23/20 07:43 Blood Pressure Position Sitting 07/23/20 07:43 Pulse Oximetry 93 07/23/20 07:43 Oxygen Delivery Method Room Air 07/23/20 07:43 Oxygen Flow Rate 0 07/23/20 07:43
[2020-07-23 08:17] LABS: Abs Immature Grans 0.02 10^3/uL (0.0-0.06); Absolute Basophil Count 0.06 10^3/uL (0.0-0.2); Absolute Eosinophil Count 0.14 10^3/uL (0.0-0.7); Absolute Lymphocyte Count 1.64 10^3/uL (1.2-3.4); Absolute Monocyte Count 0.76 10^3/uL (0.1-0.8); Absolute Neutrophil Count 5.27 10^3/uL (1.2-6.7); Basophils % 0.8; Eosinophils % 1.8; HCT 36.4 % (40.0-50.0); HGB 11.7 g/dL (13.5-17.5); Immature Grans % 0.3; Lymphocytes % 20.8; MCH 30.7 pg (27.0-33.0); MCHC 32.1 % (32.0-36.0); MCV 95.5 fL (80-95); MPV 9.2 fL (8.0-11.0); Monocytes % 9.6; Neutrophils % 66.7; Nucleated RBC 0 %; Platelet Count 295 10^3/uL (130-400); RBC 3.81 10^6/uL (4.36-5.78); RDW 14.3 % (11.8-14.1); RDW-SD 49.8 fL; WBC 7.89 10^3/uL (4.4-10.8)
[2020-07-23] MEDS: Normal Saline 250 ML IV ×2 (08:29→10:04)
[2020-07-23 08:32] LABS: ALT 28 U/L (16-63); AST 25 U/L (15-37); Albumin 3.4 g/dL (3.4-5.0); Alkaline Phosphatase 250 U/L (46-116); Anion Gap 9.8 mmol/L (3-11); BUN 40 mg/dL (7-18); Bilirubin, Total 0.6 mg/dL (0.2-1.0); CO2 26.2 mmol/L (21.0-32.0); CREATININE 1.4 mg/dL (0.70-1.30); Calcium 8.5 mg/dL (8.5-10.1); Chloride 104 mmol/L (98-107); Estimated GFR 48.89 (mL/min/1.73m2); Glucose 122 mg/dL (74-106); INR 1.1 (0.9-1.1); Magnesium 2.1 mg/dL (1.8-2.4); Prothrombin Time 11.1 sec (9.3-11.0); Sodium 140 mmol/L (136-145); Total Protein 7.1 g/dL (6.4-8.2); Troponin I < 0.05 ng/mL (<0.06)
[2020-07-23 08:54] LABS: Bilirubin Negative (Negative); Blood Negative (Negative); Clarity Clear (Clear); Glucose Negative (Negative); Ketones Negative (Negative); Leukocyte Esterase Negative (Negative); Nitrite Negative (Negative); Urobilinogen 0.2 EU/dL (Up TO 0.2); pH 5.5 (5-8)
[2020-07-23 09:06] LABS: Bacteria Rare HPF (Negative); Casts Negative LPF (Negative); Crystals Negative HPF (Negative); Epithelial Cells Rare HPF (Negative); Mucus Trace (Negative); Other Cells Negative (Negative); RBC Negative HPF (0-2); WBC Negative HPF (0-5)
[2020-07-23 09:07] LABS: C & S Indicated? No
[2020-07-23] MEDS: Omnipaque 350 MG/ML 100 ML BTL IJ ×2 (09:49→09:50)
[2020-07-23] MEDS: Normal Saline - Diluent 50 ML VIAL IV ×2 (09:51→09:52)
[2020-07-23] MEDS: Normal Saline Flush 10 ML SYR IVP (09:52)
--- NOTE | 2020-07-23 11:15 | RT.EKG_ITS ---
APPROVED REPORT Exam: Resting ECG Reason for Exam: dizziness Patient Location: E HR:55 bpm ECG Measurements Heart Rate 55 AXIS MI 237 P 58 QRSd 147 QRS -15 QT 497 T 20 QTc 477 Conclusion Sinus bradycardia...rate< 60 Prolonged MI interval...MI >220, V-rate 50- 90 Right bundle branch block...QRSd>120, terminal axis(90,270) I have reviewed and interpreted ECG and agree with software generated interpretation.
--- NOTE | 2020-07-23 12:00 | DI.MRI_ITS ---
Exam(s) MR ANGIO BRAIN WO EXAM: MR ANGIO BRAIN WO CLINICAL HISTORY: L ICA occlusion, r/o cva TECHNIQUE: Magnetic resonance angiography of the brain performed without IV contrast on a 1.5 frieda unit using [id number] sequence. COMPARISON: Brain CT scan was reviewed also MRI FINDINGS: ANTERIOR CIRCULATION: There is normal flow signal seen within the right internal carotid artery in the skull base and intra cavernous aspect. However, on the left side there is significantly diminished flow signal within the left internal carotid artery in the carotid canal skull base and intracavernous with reconstituted f low signal in the supraclinoid aspect of the left internal carotid artery.. Both middle cerebral art eries appear patent although with better flow signal on the right than the left but no evidence of ob vious intraluminal thrombus in the middle cerebral arteries. The right A1 segment is patent. Left A1 segment exhibits thin flow signal. Both anterior cerebral a rteries appear patent. No aneurysm at the level of the anterior [id number]. POSTERIOR CIRCULATION: The basilar artery is formed at the skull base by contribution from both vertebral arteries. The bas ilar artery ascends with normal luminal diameter. Distally it terminates as patent bilateral posteri or cerebral arteries. Below this level the superior cerebellar arteries are demonstrated as thin ves sels. There is no evidence of aneurysm at the tip of the basilar artery nor elsewhere in the [place]. IMPRESSION: 1. There is significant decreased flow in the left internal carotid artery in the skull base and left cavernous sinus. Flow is reconstituted at the left supraclinoid level. 2. Patent posterior circulation. DATA REPOSITORY:
--- NOTE | 2020-07-23 12:00 | DI.MRI_ITS ---
Exam(s) MR BRAIN WO EXAM: MR BRAIN WO CLINICAL HISTORY: L ICA occlusion, r/o acute cva TECHNIQUE: Multiplanar multisequence MRI of the brain was performed. COMPARISON: Prior CT scan was reviewed FINDINGS: CEREBRAL PARENCHYMA: There is no evidence of intracranial hemorrhage, mass effect, or shift of midline structures. Ventri cles are not enlarged or shifted. There is symmetrical atrophy. However, extra-axial spaces which a re symmetrical over the convexities may reflect hygromas. There is no significant focal signal abnormality in the cerebellar hemispheres nor within the mary ann, m idbrain, and thalami. There is mild periventricular white matter signal abnormality consistent with chronic small vessel di sease. There is no abnormal signal on diffusion imaging to suggest acute ischemic event. There is no significant focal signal abnormality evident on diffusion imaging to suggest acute ischem ic event. PITUITARY GLAND: No mass nor parasellar abnormality. No obvious abnormality in the cavernous sinuses. FLOW VOIDS: There is deficient flow-void in the left internal carotid artery within the skull base an d left cavernous sinus with reconstitution of flow void at the supraclinoid aspect of the internal ca rotid artery. Flow void in the opposite-right internal carotid artery in the brain is normal. PARANASAL SINUSES: Mild mucosal thickening in the right maxillary sinus noted. ORBITS: No obvious findings. IMPRESSION: 1. There is deficient flow-void within the left internal carotid artery in the skull base and left ca vernous sinus with reconstitution of flow void in this vessel left supraclinoid aspect. 2. No evidence of abnormal signal on diffusion imaging to suggest acute infarct at this time. 3. There is mild periventricular signal abnormality on FLAIR and T2 imaging suggesting chronic small vessel ischemic changes. There is no evidence of intracranial hemorrhage. 4. Moderate symmetrical atrophy with suggestion of possible symmetrical small bilateral convexity hyg romas. DATA REPOSITORY:
--- NOTE | 2020-07-23 12:00 | DI.MRI_ITS ---
Exam(s) MR ANGIO NECK WO CLINICAL HISTORY: L ICA occlusion, r/o acute cva. TECHNIQUE: [id number] sequence performed on a 1.5 frieda unit CONTRAST MATERIAL: None COMPARISON: CT scan earlier same day reviewed FINDINGS: Quality of study less than optimal due to motion artifact. There is significant disease of the level of the carotid bifurcations bilaterally. This more prominen t on the left side where there appears to be occlusion of the left internal carotid artery just beyon d its origin. On the opposite-right side there is some narrowing but no occlusion of the proximal ICA . In the posterior circulation both vertebral arteries are patent without intraluminal thrombus nor dis section. Both vertebral arteries contribute to the formation of the basilar artery at the skull base. IMPRESSION: Suboptimal study but there appears to be occlusion of the left internal carotid artery at its origin. Moderate stenosis in the proximal right internal carotid artery. Both vertebral arteries are patent and contribute to the formation of the patent basilar artery at th e skull base. DATA REPOSITORY:
[2020-07-23 12:33] LABS: Troponin I < 0.05 ng/mL (<0.06)
[2020-07-23] MEDS: Furosemide 40 MG TAB PO (13:58)
== END 2020-07-23 13:57 | disposition home or self-care (01) ==
PROVIDERS: Emergency Provider Physician Assistant; PCP Internal Medicine
DX: R42 Dizziness and giddiness (principal); J90 Pleural effusion, not elsewhere classified
CPT/HCPCS: 36415; 70496; 70498; 70544; 70547; 71275; 80053; 93005; 96360; 96361; 99285; 70551; 81003; 81015; 83735; 84484; 85025; 85610; 85730; 93010; 99284; J3490

== ENCOUNTER 2020-07-26 13:37 | Inpatient (IN) | payer MEDICARE, OTHER, SELFPAY ==
[2020-07-26] VITALS (29 sets, daily range): BP systolic 140–178; BP diastolic 63–155; PULSE 45–74; RESP 15–27; TEMP 35.8–36.5; O2SAT 88–96
--- NOTE | 2020-07-26 13:30 | RT.EKG_ITS ---
APPROVED REPORT Exam: Resting ECG Reason for Exam: SOB Patient Location: E HR:60 bpm ECG Measurements Heart Rate 60 AXIS AZ 248 P 59 QRSd 148 QRS -19 QT 482 T -14 QTc 480 Conclusion Sinus bradycardia...rate< 60 Atrial premature complex...SV complex w/ short R-R interval Prolonged AZ interval...AZ >220, V-rate 50- 90 IVCD, consider RBBB...QRSd>120mS, terminal axis(90,270) Probable anterior infarct, age indeterminate...Q >35mS, T neg, V2-V5. No STEMI. No change from previous. I have reviewed and interpreted ECG and agree with software generated interpretation.
--- NOTE | 2020-07-26 13:49 | ED.GENADUL_ITS ---
Discharge Plan Disposition Patient Disposition: [facility] INPATIENT Condition: Stable Discharge Details Clinical Impression: Acute exacerbation of CHF (congestive heart failure), Dysphasia, Internal carotid artery occlusion Admit Date/Time: 07/26/20 15:36 Admit Provider: Mónica Moreno Attending Provider: Mnóica Moreno Primary Care Provider: Taz Collins ED Provider: Renae Tapia Discharge Data Discharge Date/Time-TO BE ENTERED AT DEPARTURE: 07/26/20 16:12 Medical Decision Making 1350 -- 79-year-old male who is DNR/DNI with multiple chronic medical problems including CHF, coronary artery disease, hypertension, hyperlipidemia, ischemic cardiomyopathy presents for chronic shortness of breath for several months, worse today. Son also notes garbled speech intermittently over the past week, worse today. EKG on arrival notes a rate of 60, sinus, no STEMI, nondiagnostic. Vitals note he is afebrile and has an oxygen saturation of 96% on room air. Patient appears comfortable and nontoxic. Breath sounds equal bilaterally. No wheezing. He has no focal deficits on exam. Differential diagnosis includes acute CHF, ACS, arrhythmia, electrolyte abnormality, pneumonia. Will place an IV, screening labs, CT head, chest x-ray and reassess. 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 CT chest from 3 days ago noted a slight worsening of the right-sided pleural effusion but was negative for PE so we will hold on CT chest imaging at this time. 1420 -- Labs and imaging reviewed. Creatinine 1.8, increased from 1.4 three days ago. Troponin negative. BNP increased from 12,000 a couple weeks ago to 17,[address] head negative for acute findings. Chest x-ray notes: IMPRESSION: Congestive heart failure pattern with enlarged cardiac silhouette and mild right pleural effusion with overlying compressive atelectasis or consolidation. Staff in radiology noted that patient complained of shortness of breath with exertion. Will give a dose of 40 mg Lasix IV. 1500 -- Discussed with hospitalist who recommended neurology consult to discuss whether new change in garbled speech is due to left ICA occlusion and whether any intervention would be recommended. To clarify son's observation that patient speech has worsened, he states that patient has had garbled speech for quite some time intermittently, but states it has been more frequent and more pronounced over the past week. Case discussed with [facility] neurology --no indication for intervention at this time as patient's deficits are minimal. Recommend MRI brain and carotid ultrasound. Recommend adding Plavix 75 mg p.o. daily. If there is any acute findings on carotid ultrasound or MRI brain, can consider intervention at that time. Discussed patient's advanced directives at bedside. Son states that patient is DNR and in the process of signing paperwork for DNI. Patient states that he would not want any surgical intervention for his carotid artery occlusion or any other life-sustaining measures. Case discussed with hospitalist who accepts patient for admission. Medical Records Medical records reviewed: Yes I reviewed the patient's medical records. Imaging Data Radiologic Study: Radiologist's impression: CT Head Without Contrast Exam date and time: 07/26/2020 2:09 PM Age: 79 years old Clinical indication: Other: Garbled speech, R/O CVA TECHNIQUE: Imaging protocol: Computed tomography of the head without contrast. Radiation optimization: All CT scans at this facility use at least one of these dose optimization techniques: automated exposure control; mA and/or kV adjustment per patient size (includes targeted exams where dose is matched to clinical indication); or iterative reconstruction. COMPARISON: CT BRAIN NECK CTA 07/23/2020 9:11 AM FINDINGS: Brain: Hearn-white matter differentiation is normal. There is no mass effect or midline shift. There is no intra-axial hemorrhage. There are stable mild foci of periventricular and subcortical white matter hypodensities car probably due to chronic microvascular ischemic changes. There is parenchymal volume loss with compensatory dilatation of ventricles, sulci and basilar cisterns. There is prominence of extra-axial spaces in the bilateral cerebral hemisphere along the vertex, similar to the prior exam and probably due to diffuse volume loss. Cerebral ventricles: No ventriculomegaly. Paranasal sinuses: There is multifocal mucous retention cysts or polyps in the floor of the bilateral maxillary sinuses. There are lucencies in the alveolar processes of the right maxillary sinus, probably reflecting odontogenic disease. There is mild mucosal thickening in the bilateral anterior ethmoidal air cells. Mastoid air cells: Visualized mastoid air cells are well aerated. Orbital cavity: Patient is status post cataract extraction bilaterally. Bones/joints: No acute fracture. Soft tissues: Unremarkable. IMPRESSION: 1. No acute intracranial abnormality. 2. Stable diffuse parenchymal volume loss. 3. Stable patchy foci of periventricular white matter hypodensity which could reflect chronic microvascular ischemic changes in a patient of advanced age. XR Chest Exam date and time: 07/26/2020 2:09 PM Age: 79 years old Clinical indication: Shortness of breath TECHNIQUE: Imaging protocol: XR of the chest. Views: 2 views. COMPARISON: CT CHEST PE CTA 07/23/2020 9:39 AM FINDINGS: Lungs: There is diffuse prominence of interstitium car probably due to pulmonary edema. Pleural spaces: There is blunting of the right costophrenic angle with partial obscuration of the right hemidiaphragm, likely due to right pleural effusion with overlying compressive atelectasis. Heart/Mediastinum: Cardiac silhouette is enlarged. Bones/joints: There is no acute osseous abnormality. IMPRESSION: Congestive heart failure pattern with enlarged cardiac silhouette and mild right pleural effusion with overlying compressive atelectasis or consolidation. Lab Data Lab results reviewed: Yes I reviewed the patient's lab results. Labs: Laboratory Tests Range/Units 07/26/20 07/26/20 13:45 13:45 WBC (4.4-10.8) 10^3/uL 7.42 RBC (4.36-5.78) 10^6/uL 3.99 L Hgb (13.5-17.5) g/dL 12.1 L Hct (40.0-50.0) % 38.5 L MCV (80-95) fL 96.5 H MCH (27.0-33.0) pg 30.3 MCHC (32.0-36.0) % 31.4 L RDW (11.8-14.1) % 14.3 H Plt Count (130-400) 10^3/uL 315 MPV (8.0-11.0) fL 9.1 Immature Gran % 0.3 Neutrophils % 66.0 Lymphocytes % 22.6 Monocytes % 8.6 Eosinophils % 1.8 Basophils % 0.7 Nucleated RBC % % 0 Absolute Neutrophils (1.2-6.7) 10^3/uL 4.90 Absolute Lymphocytes (1.2-3.4) 10^3/uL 1.68 Absolute Monocytes (0.1-0.8) 10^3/uL 0.64 Absolute Eosinophils (0.0-0.7) 10^3/uL 0.13 Absolute Basophils (0.0-0.2) 10^3/uL 0.05 Sodium (136-145) mmol/L 141 Potassium (3.5-5.1) mmol/L 4.2 Chloride (98-107) mmol/L 103 Carbon Dioxide (21.0-32.0) mmol/L 28.1 Anion Gap (3-11) mmol/L 9.9 BUN (7-18) mg/dL 49 H Creatinine (0.70-1.30) mg/dL 1.8 H Estimated GFR/1.73 m2 (mL/min/1.73m2) 36.58 Glucose (74-106) mg/dL 96 Calcium (8.5-10.1) mg/dL 8.7 Magnesium (1.8-2.4) mg/dL 2.2 Total Bilirubin (0.2-1.0) mg/dL 0.7 AST (15-37) U/L 46 H ALT (16-63) U/L 45 Alkaline Phosphatase (46-116) U/L 287 H Troponin I (<0.06) ng/mL < 0.05 NT-Pro-B Natriuret Pep (<300) pg/mL 51034 H Total Protein (6.4-8.2) g/dL 7.6 Albumin (3.4-5.0) g/dL 3.7 ECG Data Attestation: I personally reviewed and interpreted this ECG (s) as follows: Interpretation: Rate of 60, sinus, PACs, no STEMI, no change from previous. HPI General Mode of arrival: ambulatory . Date/Time Provider Initiated Documentation: 07/26/20 13:38 . Limitations to Documentation: no limitations . Information obtained by: patient . HPI Narrative: Patient is a 79-year-old male with a history of CHF, coronary artery disease, hypertension, hyperlipidemia, ischemic cardiomyopathy presents for chronic shortness of breath for the past several months, worse today. Patient was seen here 3 days ago for dizziness and also complained of his chronic shortness of breath at that time. He had extensive work-up including CT chest which noted a slight increase in his right- sided pleural effusion but no PE, and had a CTA head and neck which noted a left ICA occlusion which appears chronic and had an unremarkable MRI brain and he was discharged home. Son also notes that patient appears to have had garbled speech at times over the last week. He states he feels that his speech is more garbled today. Patient denies any headache, blurry vision, chest pain, abdominal pain, vomiting, diarrhea or extremity weakness or numbness. Related Data Home Medications Medication Instructions Recorded Confirmed nitroglycerin 0.4 mg SUBLINGUAL PRN PRN 12/31/12 07/26/20 acetaminophen [Tylenol Arthritis 1,300 mg PO Q6H PRN PRN #0 01/03/13 07/26/20 Pain] aspirin [Aspir-81] 81 mg PO DAILY 10/28/15 07/26/20 allopurinol 100 mg PO DAILY #0 tab 04/16/20 07/26/20 metoprolol succinate 100 mg PO DAILY #0 tab 04/16/20 07/26/20 pantoprazole 40 mg PO DAILY@0730 #30 tab 04/16/20 07/26/20 atorvastatin 80 mg PO DAILY 05/05/20 07/26/20 metolazone See Rx Instructions .ROUTE .COMPLEX 05/05/20 07/26/20 potassium chloride 20 meq PO DAILY 05/05/20 05/05/20 furosemide 40 mg PO BID@0830,1600 #60 tab 05/08/20 07/26/20 Previous Rx's Medication Instructions Recorded acetaminophen [Tylenol Arthritis 1,300 mg PO Q6H PRN PRN #0 01/03/13 Pain] allopurinol 100 mg PO DAILY #0 tab 04/16/20 metoprolol succinate 100 mg PO DAILY #0 tab 04/16/20 pantoprazole 40 mg PO DAILY@0730 #30 tab 04/16/20 furosemide 40 mg PO BID@0830,1600 #60 tab 05/08/20 Allergies Allergy/AdvReac Type Severity Reaction Status Date / Time amlodipine AdvReac Intermediate Swelling/Ed Unverified 07/26/20 13:50 lottie enalapril maleate AdvReac Intermediate cough Unverified 07/26/20 13:50 [From Vasotec] enalaprilat dihydrate AdvReac Intermediate cough Unverified 07/26/20 13:50 [From Vasotec] General Stated Complaint: SOB RUPESH: 2 Review of Systems All systems reviewed & are unremarkable except as noted in HPI and below Constitutional Constitutional: Reports as per HPI, Denies chills and Denies fever(s) Eyes Eyes: Denies blurry vision ENT Ears, Nose, Mouth, and Throat: Denies dizziness, Denies sore throat and Denies throat swelling Cardiovascular Cardiovascular: Denies chest pain and Reports dyspnea Respiratory Respiratory: Denies cough and Reports dyspnea Gastrointestinal Gastrointestinal: Denies abdominal pain, Denies diarrhea and Denies vomiting Genitourinary Genitourinary: Denies hematuria and Denies dysuria Musculoskeletal Musculoskeletal: Denies back pain and Denies numbness Integumentary/Breasts Skin/Breast: Denies lesions and Denies rash Neurologic Neurologic: Denies dizziness, Denies localized weakness and Denies numbness Allergic/Immunologic Allergic/Immunologic: Denies throat swelling [facility] Medical History Bladder neck contracture CAD (coronary artery disease) CHF (congestive heart failure) EF 50% by echo in 03/19 Chronic kidney disease DNI (do not intubate) DNR (do not resuscitate) Hypercholesterolemia Hypertension Ischemic cardiomyopathy Palliative care patient POLST (Physician Orders for Life-Sustaining Treatment) Prostate cancer Surgical History History of heart artery stent S/P prostatectomy Status post THR (total hip replacement) Family History Son No problems noted. Social History Smoking/Tobacco Use Status: Former Tobacco Use Smoking risk assessment performed?: Yes Alcohol Intake: current Alcohol type: other Drug use: Never Substance use type: does not use Caregiver/Support person: Yes Communication Needs: Hard of Hearing and Corrective Lenses Education Level: high school Do you need help understanding health information?: Always Current gender identity: male How often do you talk on the phone with friends or family?: three or more times per week How often do you get together with friends or relatives?: three or more times per week Panel score (0-1 are the most socially isolated patients): 1 What type of physical activity do you participate in: walking Duration: 15-30 minutes/day Special deanna needs: No Seatbelt use: always Do you feel safe at home: Yes Do you feel safe in your relationship?: Yes Additional Social history: Son Berto is his main person who helps care for him. He is a , but was posted in [place] during the [employer] era. He has insurance with both medicare and [employer]. Exam Const General: cooperative and no acute distress HENMT Head: normal to inspection Face and sinus: normal facial exam Eyes General: appearance normal, both eyes and all related structures EOM: EOM intact bilaterally Neck Neck: normal visual inspection and No submandibular swelling Lymphatic: no lymphadenopathy noted Chest Chest: normal inspection of the chest and no tenderness Resp Effort & Inspection: normal respiratory effort and able to speak in complete sentences Auscultation: clear to auscultation bilaterally Cardio Rate: bradycardic Rhythm: regular rhythm GI Inspection: normal to inspection Palpation: soft, not firm, not rigid and nontender Auscultation: normal bowel sounds Skin General skin exam: no rashes or lesions noted Neuro General: patient alert, patient awake, patient oriented x3, gait normal, moves all extremities, no meningeal signs and no focal motor deficits Cranial Nerves: CN's II-XI intact bilaterally Cognition: normal cognition Speech: speech normal Motor: muscle tone normal throughout and strength 5/5 throughout Sensory Exam: no sensory deficits noted Extrem General: normal to inspection, full ROM, capillary refill normal, no calf tenderness bilaterally and no edema Psych Appearance: grossly normal Mental Status: mental status grossly normal Speech and Movement: speech and movement normal Affect: normal affect Course Vital Signs Vital signs: Vital Signs Temperature 97.5 F L 07/26/20 13:43 Pulse 55 L 07/26/20 13:43 Respiratory Rate 07/26/20 13:43 Blood Pressure 159/71 H 07/26/20 13:43 Pulse Oximetry 96 07/26/20 13:43 Temperature 97.5 F L 07/26/20 13:43 Temperature Source Temporal Artery Scan 07/26/20 13:43 Pulse 55 L 07/26/20 13:43 Respiratory Rate 07/26/20 13:43 Respiratory Effort Non-Labored 07/26/20 13:47 Blood Pressure 159/71 H 07/26/20 13:43 Blood Pressure Position Supine 07/26/20 13:43 Pulse Oximetry 96 07/26/20 13:43 Pain Level 0 07/26/20 13:43
[2020-07-26 14:00] LABS: Abs Immature Grans 0.02 10^3/uL (0.0-0.06); Absolute Basophil Count 0.05 10^3/uL (0.0-0.2); Absolute Eosinophil Count 0.13 10^3/uL (0.0-0.7); Absolute Lymphocyte Count 1.68 10^3/uL (1.2-3.4); Absolute Monocyte Count 0.64 10^3/uL (0.1-0.8); Basophils % 0.7; Eosinophils % 1.8; HCT 38.5 % (40.0-50.0); HGB 12.1 g/dL (13.5-17.5); Immature Grans % 0.3; Lymphocytes % 22.6; MCH 30.3 pg (27.0-33.0); MCHC 31.4 % (32.0-36.0); MCV 96.5 fL (80-95); MPV 9.1 fL (8.0-11.0); Monocytes % 8.6; Nucleated RBC 0 %; Platelet Count 315 10^3/uL (130-400); RBC 3.99 10^6/uL (4.36-5.78); RDW 14.3 % (11.8-14.1); RDW-SD 51.2 fL; WBC 7.42 10^3/uL (4.4-10.8)
--- NOTE | 2020-07-26 14:00 | DI.RAD_ITS ---
Exam(s) XR CHEST 2V PA LATERAL EXAM: XR CHEST 2V PA LATERAL CLINICAL HISTORY: shortness of breath, assess for chf TECHNIQUE: 2D digital imaging was performed. COMPARISON: CR XR CHEST 2V PA LATERAL from 03/24/2020 CR XR PORTABLE CHEST AP from 04/29/2020 FINDINGS: MEDIASTINUM: Normal. HEART: Cardiomegaly. PULMONARY VASCULATURE: There is tortuosity of the thoracic aorta. LUNGS: The lungs are hyperinflated with flattened diaphragms suggesting underlying COPD. No focal co nsolidation. PLEURAL SPACE: There is a small right pleural effusion. No pneumothorax. No left pleural effusion. BONE:Within normal limits for the patient's age. OTHER FINDINGS:Normal. IMPRESSION: 1. Cardiomegaly. 2. Small right pleural effusion. 3. COPD. DATA REPOSITORY: RADIATION DOSE DELIVERED:
--- NOTE | 2020-07-26 14:00 | DI.CT_ITS ---
Exam(s) CT HEAD WO EXAM: CT HEAD WO CLINICAL HISTORY: garbled speech, r/o cva. TECHNIQUE: Imaging Protocol: Axial computed tomography images with coronal and sagittal reformatted images were created and reviewed COMPARISON: CT CT BRAIN NECK CTA from 07/23/2020 FINDINGS: Ventricles and Extra axial spaces: Normal in size and morphology for the patient's age. Hemorrhage: None. Cerebral parenchyma: There are areas of decreased attenuation in the white matter most consistent wit h chronic microvascular ischemic change. No acute territorial infarct is seen. Midline shift: None. Brainstem/Cerebellum: Normal. Calvarium: Normal. Visualized Paranasal sinuses/Mastoids: There is mucosal thickening seen in the maxillary sinuses bila terally. Small mucous retention cysts or polyps are seen in the floors of the maxillary sinuses. Th e remaining visualized paranasal sinuses are clear as are the mastoid air cells. Soft Tissues: Patient has had prior bilateral cataract surgery. IMPRESSION: No acute intracranial process. RADIATION DOSE DELIVERED: 788.54mGy.cm Total DLP DATA REPOSITORY: All CT scans at this facility are submitted to the National Radiology Data Registry (NRDR) Dose Index Registry (DIR) with the [employer] (ACR). RADIATION OPTIMIZATION: All CT scans at this facility use at least one of these dose optimization te chniques: automated exposure control; mA and/or kV adjustment per patient size (includes targeted exa ms where dose is matched to clinical indication); or iterative reconstruction.
[2020-07-26 14:19] LABS: ALT 45 U/L (16-63); AST 46 U/L (15-37); Albumin 3.7 g/dL (3.4-5.0); Alkaline Phosphatase 287 U/L (46-116); Anion Gap 9.9 mmol/L (3-11); BUN 49 mg/dL (7-18); Bilirubin, Total 0.7 mg/dL (0.2-1.0); CO2 28.1 mmol/L (21.0-32.0); CREATININE 1.8 mg/dL (0.70-1.30); Calcium 8.7 mg/dL (8.5-10.1); Chloride 103 mmol/L (98-107); Estimated GFR 36.58 (mL/min/1.73m2); Glucose 96 mg/dL (74-106); Magnesium 2.2 mg/dL (1.8-2.4); NT-proBNP 17513 pg/mL (<300); Potassium 4.2 mmol/L (3.5-5.1); Sodium 141 mmol/L (136-145); Total Protein 7.6 g/dL (6.4-8.2); Troponin I < 0.05 ng/mL (<0.06)
--- NOTE | 2020-07-26 14:47 | DI.VRAD_ITS ---
PROCEDURE INFORMATION: Exam: XR Chest Exam date and time: 07/26/2020 2:09 PM Age: 79 years old Clinical indication: Shortness of breath TECHNIQUE: Imaging protocol: XR of the chest. Views: 2 views. COMPARISON: CT CHEST PE CTA 07/23/2020 9:39 AM FINDINGS: Lungs: There is diffuse prominence of interstitium car probably due to pulmonary edema. Pleural spaces: There is blunting of the right costophrenic angle with partial obscuration of the right hemidiaphragm, likely due to right pleural effusion with overlying compressive atelectasis. Heart/Mediastinum: Cardiac silhouette is enlarged. Bones/joints: There is no acute osseous abnormality. IMPRESSION: Congestive heart failure pattern with enlarged cardiac silhouette and mild right pleural effusion with overlying compressive atelectasis or consolidation. Dictated and Authenticated by: Deangelo Berry MD. Ordering:REJI Macdonald MD
--- NOTE | 2020-07-26 14:55 | DI.VRAD_ITS ---
PROCEDURE INFORMATION: Exam: CT Head Without Contrast Exam date and time: 07/26/2020 2:09 PM Age: 79 years old Clinical indication: Other: Garbled speech, R/O CVA TECHNIQUE: Imaging protocol: Computed tomography of the head without contrast. Radiation optimization: All CT scans at this facility use at least one of these dose optimization techniques: automated exposure control; mA and/or kV adjustment per patient size (includes targeted exams where dose is matched to clinical indication); or iterative reconstruction. COMPARISON: CT BRAIN NECK CTA 07/23/2020 9:11 AM FINDINGS: Brain: Hearn-white matter differentiation is normal. There is no mass effect or midline shift. There is no intra-axial hemorrhage. There are stable mild foci of periventricular and subcortical white matter hypodensities car probably due to chronic microvascular ischemic changes. There is parenchymal volume loss with compensatory dilatation of ventricles, sulci and basilar cisterns. There is prominence of extra-axial spaces in the bilateral cerebral hemisphere along the vertex, similar to the prior exam and probably due to diffuse volume loss. Cerebral ventricles: No ventriculomegaly. Paranasal sinuses: There is multifocal mucous retention cysts or polyps in the floor of the bilateral maxillary sinuses. There are lucencies in the alveolar processes of the right maxillary sinus, probably reflecting odontogenic disease. There is mild mucosal thickening in the bilateral anterior ethmoidal air cells. Mastoid air cells: Visualized mastoid air cells are well aerated. Orbital cavity: Patient is status post cataract extraction bilaterally. Bones/joints: No acute fracture. Soft tissues: Unremarkable. IMPRESSION: 1. No acute intracranial abnormality. 2. Stable diffuse parenchymal volume loss. 3. Stable patchy foci of periventricular white matter hypodensity which could reflect chronic microvascular ischemic changes in a patient of advanced age. Dictated and Authenticated by: Deangelo Berry MD. Ordering:REJI Macdonald MD
[2020-07-26] MEDS: Normal Saline Flush 10 ML SYR IVP ×3 (15:04→19:48)
[2020-07-26] MEDS: Furosemide 40 MG/4 ML VIAL IVP (15:25)
[2020-07-26] MEDS: Clopidogrel 75 MG TAB PO (15:45)
--- NOTE | 2020-07-26 15:46 | W.PM.HP.N ---
Date of service: 07/26/20 Time of Service: 15:47 Assessment and Plan Assessment and plan (1) Acute on chronic systolic CHF (congestive heart failure): Status: Acute Assessment and plan: Diurese, monitoring I/O's and daily weights. MOnitor on tele. (2) Dysarthria: Status: Acute Assessment and plan: I suspect that this could be symptomatic carotid stenosis. Obtain neuro and speech evals. Start plavix, continue baby asa and statin. Obtain carotid US and repeat MRI brain, as recommended by [facility] neuro. (3) Acute bronchitis: Status: Suspected Assessment and plan: Check procalcitonin. Trial empiric doxycycline. prn albuterol, acapella. (4) Acute kidney injury superimposed on chronic kidney disease: Status: Acute Assessment and plan: This could actually improve with diuresis given that the patient has underlying pulmonary HTN. He also does have a h/o urinary retention. Will obtain bladder scans. Will diurese cautiously monitoring Cr. (5) Pleural effusion on right: Status: Acute Assessment and plan: Likely part of the CHF picture. TSH wnl. Diurese as above (6) DVT prophylaxis: Status: Acute Assessment and plan: Sc heparin (7) Discharge planning issues: Status: Acute Assessment and plan: DNR/DNI Patient was not interested in transfer or intervention. Consider palliative visit on this admission. History of Present Illness History of Present Illness Chief Complaint: shortness of breath, episodically worsening garbled speech Narrative: Mr Yuan is a 79 year old male with PMHx of ICMO/chronic systolic CHF with LVEF of 50% per echo in 03/19, as well as h/o CAD, HTN, hyperlipidemia, and chronic dysarthria, who was brought in to [facility] today by his son for shortness of breath and worsening of his chronic dysarthria, which seems to have happened several times this week and is happening on arrival to the ED. The patient was in the ED on 07/23/20 with chief complaint of dizziness, at which time CTA head and neck, CTA chest, and MRI/MRA of the brain were obtained. 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 No acute infarct was seen then on the MRI. The patient's presentation today is c/w acute exacerbation of CHF, both clinically and by imaging, for which he was initiated on IV furosemide. The patient states that his breathing is acutely worse today and that his sputum color became orange 3-4 days ago, which is not normal for him. He endorses orthopna and PND. Neurology consultation was sought by Dr Tapia due to patient's episodically worsening dysarthria and now known carotid stenosis. [facility] neurology felt the patient would not benefit from a transfer for an intervention, and the patient refused intervention anyway. [facility] neurology did recommend obtaining carotid dopplers to establish whether occlusion was chronic or acute, as well as addition of plavix (patient is normally on baby aspirin), and a repeat MRI on Monday. Hospitalist admission was requested. Review of Systems All systems reviewed & are unremarkable except as noted in HPI and below PFSH Medical History Bladder neck contracture CAD (coronary artery disease) CHF (congestive heart failure) EF 50% by echo in 03/19 Chronic kidney disease DNI (do not intubate) DNR (do not resuscitate) Hypercholesterolemia Hypertension Ischemic cardiomyopathy Palliative care patient POLST (Physician Orders for Life-Sustaining Treatment) Prostate cancer Surgical History History of heart artery stent S/P prostatectomy Status post THR (total hip replacement) Family History Son No problems noted. Social History Smoking/Tobacco Use Status: Former Tobacco Use Smoking risk assessment performed?: Yes Alcohol Intake: current Alcohol type: other Drug use: Never Substance use type: does not use Caregiver/Support person: Yes Communication Needs: Hard of Hearing and Corrective Lenses Education Level: high school Do you need help understanding health information?: Always Current gender identity: male How often do you talk on the phone with friends or family?: three or more times per week How often do you get together with friends or relatives?: three or more times per week Panel score (0-1 are the most socially isolated patients): 1 What type of physical activity do you participate in: walking Duration: 15-30 minutes/day Special deanna needs: No Seatbelt use: always Do you feel safe at home: Yes Do you feel safe in your relationship?: Yes Additional Social history: Son Berto is his main person who helps care for him. He is a , but was posted in [place] during the [employer] era. He has insurance with both medicare and [employer]. Meds Allergies and Home Medications Allergies Allergy/AdvReac Type Severity Reaction Status Date / Time amlodipine AdvReac Intermediate Swelling/Ed Unverified 07/26/20 13:50 lottie enalapril maleate AdvReac Intermediate cough Unverified 07/26/20 13:50 [From Vasotec] enalaprilat dihydrate AdvReac Intermediate cough Unverified 07/26/20 13:50 [From Vasote] Home Medications Medication Instructions Recorded Confirmed Type nitroglycerin 0.4 mg SUBLINGUAL PRN PRN 12/31/12 07/26/20 History acetaminophen [Tylenol Arthritis 1,300 mg PO Q6H PRN PRN #0 01/03/13 07/26/20 Rx Pain] aspirin [Aspir-81] 81 mg PO DAILY 10/28/15 07/26/20 History allopurinol 100 mg PO DAILY #0 tab 04/16/20 07/26/20 Rx metoprolol succinate 100 mg PO DAILY #0 tab 04/16/20 07/26/20 Rx pantoprazole 40 mg PO DAILY@0730 #30 tab 04/16/20 07/26/20 Rx atorvastatin 80 mg PO DAILY 05/05/20 07/26/20 History metolazone See Rx Instructions .ROUTE .COMPLEX 05/05/20 07/26/20 History potassium chloride 20 meq PO DAILY 05/05/20 05/05/20 History furosemide 40 mg PO BID@0830,1600 #60 tab 05/08/20 07/26/20 Rx Exam Narrative Exam Narrative: General: Pleasant elderly male who does have a speech impediment which is at the level that I remember it on one of his prior admissions Neurological: A&Ox3, CN II-XII intact, sensory intact, EOMI, 5/5 strength throughout, dysarthric and also having a slight difficulty finding words, but again this is exactly the way he was speaking on one his prior admissions here. Psychiatric: Appropriate speech pattern/content Skin: Visible skin intact HEENT: Atraumatic, normocephalic, EOMI, MMM, clear oropharynx, no submandibular or cervical lymphadenopathy, no goiter, + JVD Cardiovascular: RRR, occasional extra beats, no m/r/g Lungs: Diminished breath sounds at R base; otherwise, CTAB Gastrointestinal: soft, nontender, nondistended Genitourinary: deferred Extremities: trace edema at B feet, no c/c, +1 pedal pulsesB Results Imaging Additional studies: CXR: 1. Cardiomegaly. 2. Small right pleural effusion. 3. COPD. CT head without contrast: No acute intracranial process. EKG: HR 59, NSR, prolonged DC interval, RBBB, no acute ischemia Labs Result diagrams: 07/26/20 13:45 07/26/20 13:45 Labs: Laboratory Results - last 24 hr 07/26/20 07/26/20 13:45 13:45 WBC 7.42 RBC 3.99 L Hgb 12.1 L Hct 38.5 L MCV 96.5 H MCH 30.3 MCHC 31.4 L RDW 14.3 H Plt Count 315 MPV 9.1 Immature Gran % 0.3 Neutrophils % 66.0 Lymphocytes % 22.6 Monocytes % 8.6 Eosinophils % 1.8 Basophils % 0.7 Nucleated RBC % 0 Absolute Neutrophils 4.90 Absolute Lymphocytes 1.68 Absolute Monocytes 0.64 Absolute Eosinophils 0.13 Absolute Basophils 0.05 Sodium 141 Potassium 4.2 Chloride 103 Carbon Dioxide 28.1 Anion Gap 9.9 BUN 49 H Creatinine 1.8 H Estimated GFR/1.73 m2 36.58 Glucose 96 Calcium 8.7 Magnesium 2.2 Total Bilirubin 0.7 AST 46 H ALT 45 Alkaline Phosphatase 287 H Troponin I < 0.05 NT-Pro-B Natriuret Pep 99721 H Total Protein 7.6 Albumin 3.7 Last Vital Signs Temp 36.4 C L 07/26/20 13:43 Pulse 53 L 07/26/20 15:01 Resp 22 07/26/20 15:01 BP 140/110 H 07/26/20 15:01 Pulse Ox 91 L 07/26/20 15:01 COVID-19 Screening Have you, or household traveled for leisure in last 14 days?: No Had IN PERSON contact w/suspected or confirmed C-19 person: No
[2020-07-26 16:00] LABS: Source Nasal/Nares
[2020-07-26 17:16] LABS: Troponin I < 0.05 ng/mL (<0.06)
[2020-07-26] MEDS: Heparin 5,000 UNITS/ML VIAL 5000 UNITS SC ×2 (17:44→23:12)
[2020-07-26 18:20] LABS: Procalcitonin < 0.1 ng/mL
[2020-07-26] MEDS: Doxycycline Hyclate 100 MG CAP PO (18:29)
[2020-07-26 19:20] LABS: COVID-19 PCR Negative (Negative)
[2020-07-26] MEDS: Atorvastatin 40 MG TAB 80 MG PO (19:47)
[2020-07-27] VITALS (11 sets, daily range): BP systolic 125–173; BP diastolic 64–85; PULSE 53–71; RESP 14–19; TEMP 35.9–37; O2SAT 83–98
[2020-07-27] MEDS: Doxycycline Hyclate 100 MG CAP PO ×2 (05:55→18:03)
[2020-07-27] MEDS: Heparin 5,000 UNITS/ML VIAL 5000 UNITS SC ×3 (05:55→21:53)
[2020-07-27 07:24] LABS: Abs Immature Grans 0.03 10^3/uL (0.0-0.06); Absolute Basophil Count 0.06 10^3/uL (0.0-0.2); Absolute Eosinophil Count 0.15 10^3/uL (0.0-0.7); Absolute Lymphocyte Count 1.43 10^3/uL (1.2-3.4); Absolute Monocyte Count 0.71 10^3/uL (0.1-0.8); Absolute Neutrophil Count 6.08 10^3/uL (1.2-6.7); Basophils % 0.7; Eosinophils % 1.8; HCT 36.5 % (40.0-50.0); HGB 11.8 g/dL (13.5-17.5); Immature Grans % 0.4; Lymphocytes % 16.9; MCH 30.8 pg (27.0-33.0); MCHC 32.3 % (32.0-36.0); MCV 95.3 fL (80-95); MPV 9.5 fL (8.0-11.0); Monocytes % 8.4; Neutrophils % 71.8; Nucleated RBC 0 %; Platelet Count 265 10^3/uL (130-400); RBC 3.83 10^6/uL (4.36-5.78); RDW 14.6 % (11.8-14.1); RDW-SD 50.7 fL; WBC 8.46 10^3/uL (4.4-10.8)
[2020-07-27] MEDS: Allopurinol 100 MG TAB PO (07:41)
[2020-07-27] MEDS: Clopidogrel 75 MG TAB PO (07:41)
[2020-07-27] MEDS: Aspirin E.C. 81 MG TABEC PO (07:41)
[2020-07-27] MEDS: Normal Saline Flush 10 ML SYR IVP ×3 (07:41→21:57)
[2020-07-27] MEDS: Pantoprazole 40 MG TABCR PO (07:41)
[2020-07-27] MEDS: Furosemide 40 MG/4 ML VIAL IVP ×2 (07:42→15:52)
[2020-07-27 07:44] LABS: Anion Gap 7.4 mmol/L (3-11); BUN 46 mg/dL (7-18); CO2 29.6 mmol/L (21.0-32.0); CREATININE 1.6 mg/dL (0.70-1.30); Calcium 9.2 mg/dL (8.5-10.1); Chloride 104 mmol/L (98-107); Glucose 88 mg/dL (74-106); Magnesium 2.2 mg/dL (1.8-2.4); Potassium 4.3 mmol/L (3.5-5.1); Sodium 141 mmol/L (136-145); Troponin I < 0.05 ng/mL (<0.06)
[2020-07-27 07:58] LABS: Calculated LDL 57 mg/dL (<100); Cholesterol 111 mg/dL (<200); HDL Cholesterol 43 mg/dL (40-60); Triglyceride 57 mg/dL (<150)
[2020-07-27] MEDS: metOLazone 2.5 MG TAB PO (08:55)
[2020-07-27] MEDS: Metoprolol CR 100 MG TABCR PO (09:21)
--- NOTE | 2020-07-27 10:41 | INITIAL_ITS ---
- If Service Date Differs Date of service: 07/27/20 Time of Service: 10:41 Care Management Initial Assess REASON FOR HOSPITALIZATION:: Acute on chronic systolic CHF and recurrent speech deficits. PAST MEDICAL HISTORY/PAST SURGICAL HISTORY:: Medical History: Bladder neck contracture, CAD (coronary artery disease),. CHF (congestive heart failure) - EF 50% by echo in 03/19, Chronic kidney disease, DNI (do not intubate), DNR (do not resuscitate), Hypercholesterolemia, Hypertension, Ischemic cardiomyopathy, Palliative care patient, POLST (Physician Orders for Life-Sustaining Treatment), and. Prostate cancer. Surgical History: History of heart artery stent, S/P prostatectomy, and. Status post THR (total hip replacement). PREVIOUS FUNCTIONAL STATUS/SOCIAL/FAMILY SUPPORTS:: Joaquín lives alone in an apartment in [place]. He is a and spent 16 years in the [employer] and 4 years in the [place]. 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 Joaquín has a son, Aiden, who resides in [place], [place], and has many friends in the area. He is independent at baseline and still drives. CURRENT FUNCTIONAL STATUS:: Joaquín is sitting in a chair when CM comes to meet with him. He is pleasant and easily engages in conversation. His speech is at times difficult to understand. Joaquín talks about his time in the [employer] and [place] and jokes that the [employer] sent him [place] to [place] and the [place] sent him [place]. CM will continue to follow. ADVANCE DIRECTIVES:: COLST and Advance Directives on file; son Aiden Yuan is appointed as Health Care Agent. Has patient been provided with info about the portal/API?: No Did the patient sign up for the portal?: No CODE STATUS:: DNR/DNI INSURANCE COVERAGE / FINANCIAL ISSUES:: Medicare and [employer]. CURRENT HOME/COMMUNITY SERVICES/EQUIPMENT:: Joaquín has a walker and a cane but does not use them. PRIMARY CARE PHYSICIAN:: Taz Collins MD. POTENTIAL DISCHARGE NEEDS:: Follow up appointments with PCP, archeologist, and neurologist, and follow up plan of care. PATIENT/FAMILY EDUCATION NEEDS:: Discharge instructions, limitations, follow up plan of care, including Ask Me Three and self management. ANTICIPATED BARRIERS TO DISCHARGE:: None anticipated at this time. TRANSPORTATION:: Via private vehicle with family/friends. PLAN:: Anticipate Joaquín will be discharged home with no new services when medically cleared by provider. He will follow up with his PCP, neurology, and discharge plan of care as directed. He will be driven home via private vehicle by family/friends. CM will continue to follow.
--- NOTE | 2020-07-27 11:22 | IN_ITS ---
Date of service: 07/27/20 Time of Service: 10:15 PT Notes Visit Reasons: ACUTE ON CHRONIC SYSTOLIC CHF,RECURRENT SPEECH DEF Inpatient Physical Therapy Evaluation Date: 07/27/20 Referring Doctor: Mónica Moreno MD PT Orders: PT CONSULT: Limited ability Precautions: Standard Patient Profile/Admitting Diagnosis: Patient presented to ER on 07/26/20 with c/o increased SOB x 2 months with garbled speech. Admitted for medical management with workup suggesting acute on chronic exacerbation CHF, dysphasia with speech and neuro consultations in the works, chronic CAD, ICA occlusion, and acute bronchitis. PMHX: Medical History Bladder neck contracture CAD (coronary artery disease) CHF (congestive heart failure) EF 50% by echo in 03/19 Chronic kidney disease DNI (do not intubate) DNR (do not resuscitate) Hypercholesterolemia Hypertension Ischemic cardiomyopathy Palliative care patient POLST (Physician Orders for Life-Sustaining Treatment) Prostate cancer Surgical History History of heart artery stent S/P prostatectomy Status post THR (total hip replacement) Social History/Home Situation: Lives alone in a 2 story home, only residing on the first floor. He has 3 steps to enter with a rail. He is independent with self care, ADL's and grader meat, and he continues to drive. He has a son who lives in [facility] who is supportive. He has no animals, he has no lifeline. He does not use an assistive device. Current Functional Limitations: Requires supervision with transfers and ambulation Equipment Owned/DME: None Subjective: Denies any pain, he is overall feeling very good this morning. He does use oxygen at home. He explains he was about to enter some type of PT treatment for balance, but his dysphasia makes this difficult to understand. 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 Mental Status: A & O x3 Pain: 0/10 Vital Signs: BP 144/78, HR 71, O2 sat on 1.5 L O2 98%, room air 95%. ROM: Right Upper Extremity: WFL Left Upper Extremity: WFL Right Lower Extremity: WFL Left Lower Extremity: WFL Strength: Right Upper Extremity: Grossly 4/5 Left Upper Extremity: Grossly 4/5 Right Lower Extremity: Grossly 5/5 Left Lower Extremity: Grossly 5/5 Sensation: WNL Bed Mobility/Transfers: Supervision with all transfers and ambulation. Independent with bed mobility. Gait: WNL, no device, supervision, 200 ft, steady. Balance: Static Sitting: Good Dynamic Sitting: Good Static Standing: Good Dynamic Standing: Fair Eubanks balance score: 37/56, at risk for falls. Special Tests: Mobility Limitations Standardized Measure [facility] AM-PAC 6 clicks Basic Mobility Inpatient Short Form: 11% disability 79 Informed Consent/Education: Patient instructed in purpose of PT consult and plan of care. Assessment: Patient is a 79 year old male referred to physical therapy services with the diagnosis of limite ability in the setting of acute on chronic CHF, dysphasia, CAD, acute brochitis, and ICA occlusion. Patient presents with clinical signs and symptoms consistent with balance impairment related to his medical conditions, as demonstrated by the following impairment level findings: Eubanks score of 37/56. Impairments are contributing to the following functional limitations: AMPAC score of 11%, and mild balance deficit with more dynamic movements which would be required for functional chores and ADL's. Patient is assessed as a Low 30672 complexity based on the following: History: See comorbidities Examination: balance deficits Presentation: Stable Decision Making: Easy Goals: Goals X1 week 1. Supine-Sit I 2. Sit-Supine I 3. Sit-Stand I 4. Stand-Sit I 5. Bed-Chair I 6. Chair-Bed I 7. Gait 300 ft I 8. Stairs I 9. Independent with home exercise program 10. Balance 42/56 Plan of Care/Treatment Plan: 1-2x/day, 7 days/week x 1 week. Plan of care has been reviewed with the ELECTRICIAN REFINERY providing the service under Physical Therapy direction. Initiate Physical Therapy intervention for strengthening, bed mobility, transfers, gait, stairs, balance training, use of assistive device. DISCHARGE RECOMMENDATIONS: Home, with outpatient PT referral for continued balance rehabilitation TREATMENT CODE/TIME: 20 min, [id number]
--- NOTE | 2020-07-27 16:45 | W.PM.PROGNOT ---
Date of Service Date of service: 07/27/20 Time of Service: 16:45 Assessment and Plan Assessment and plan (1) Acute on chronic systolic CHF (congestive heart failure): Start date: 07/27/20 Start time: 16:51 Status: Acute Assessment and plan: Per wts down from 86.7 to 79.2 kg. however building scale vs standing scale. he does not appear volume overloaded Repeat standing wt in am repeat BNP in am. Monitor on tele. (2) Dysarthria: Start date: 07/27/20 Start time: 16:57 Status: Acute Assessment and plan: suspect could be symptomatic carotid stenosis. Obtain neuro and speech evals. Start plavix, continue baby asa and statin. Obtain carotid US and repeat MRI brain, as recommended by [facility] neuro. (3) Acute bronchitis: Start date: 07/27/20 Start time: 16:58 Status: Suspected Assessment and plan: Procal negative, however CXR with COPD will continue doxy due to sputum color change he is feeling better. Wheezing on excertion, inhaler ordered prn albuterol, acapella. (4) Acute kidney injury superimposed on chronic kidney disease: Start date: 07/27/20 Start time: 16:59 Status: Acute Assessment and plan: Improved from admission. (5) Pleural effusion on right: Start date: 07/27/20 Start time: 16:59 Status: Acute Assessment and plan: Likely part of the CHF picture. TSH wnl. Diurese as above (6) DVT prophylaxis: Start date: 07/27/20 Start time: 17:00 Status: Acute Assessment and plan: Sc heparin (7) Discharge planning issues: Start date: 07/27/20 Start time: 17:00 Status: Acute Assessment and plan: DNR/DNI Patient was not interested in transfer or intervention. Consider palliative visit on this admission. above discussed with Dr. Moreno Subjective Subjective Patient reports: feels better Interval history since last seen: Sitting up in chair. Pleasant gentlemen. Makes jokes. hard to understand garbled speech. Strength equal. he does complain of bilateral shoulder pain. he denies SOB, N/V/d CP Exam Narrative Exam Narrative: General: Pleasant elderly male who does have a speech impediment sometimes harder to understand than at other times sitting up in chair, pleasant, making jokes smiling. Neurological: A&Ox3, CN II-XII intact, sensory intact, EOMI, 5/5 strength throughout, dysarthric and also having a slight difficulty finding words, but again this is exactly the way he was speaking on one his prior admissions here. Psychiatric: Appropriate speech pattern/content Skin: Visible skin intact HEENT: Atraumatic, normocephalic, EOMI, MMM, clear oropharynx, no submandibular or cervical lymphadenopathy, no goiter, + JVD Cardiovascular: RRR, occasional extra beats, no m/r/g Lungs: Diminished breath sounds at R base; otherwise, expiratory wheeze on exertion, no SOB Gastrointestinal: soft, nontender, nondistended Extremities: trace edema at B feet, no c/c, +1 pedal pulsesB Objective Last Vital Signs Temp 36.4 C L 07/27/20 15:34 Pulse 57 L 07/27/20 15:34 Resp 17 07/27/20 15:34 BP 143/73 H 07/27/20 15:34 Pulse Ox 98 07/27/20 15:34 Laboratory Results - last 24 hr 07/26/20 07/26/20 07/26/20 15:45 16:41 16:41 WBC RBC Hgb Hct MCV MCH MCHC RDW Plt Count MPV Immature Gran % Neutrophils % Lymphocytes % Monocytes % Eosinophils % Basophils % Nucleated RBC % Absolute Neutrophils Absolute Lymphocytes Absolute Monocytes Absolute Eosinophils Absolute Basophils Sodium Potassium Chloride Carbon Dioxide Anion Gap BUN Creatinine Estimated GFR/1.73 m2 Glucose Calcium Magnesium Troponin I < 0.05 Triglycerides Total Cholesterol LDL Cholesterol, Calc HDL Cholesterol Procalcitonin < 0.1 SARS-CoV-2 (PCR) Negative 07/27/20 07/27/20 07:05 07:05 WBC 8.46 RBC 3.83 L Hgb 11.8 L Hct 36.5 L MCV 95.3 H MCH 30.8 MCHC 32.3 RDW 14.6 H Plt Count 265 MPV 9.5 Immature Gran % 0.4 Neutrophils % 71.8 Lymphocytes % 16.9 Monocytes % 8.4 Eosinophils % 1.8 Basophils % 0.7 Nucleated RBC % 0 Absolute Neutrophils 6.08 Absolute Lymphocytes 1.43 Absolute Monocytes 0.71 Absolute Eosinophils 0.15 Absolute Basophils 0.06 Sodium 141 Potassium 4.3 Chloride 104 Carbon Dioxide 29.6 Anion Gap 7.4 BUN 46 H Creatinine 1.6 H Estimated GFR/1.73 m2 41.90 Glucose 88 Calcium 9.2 Magnesium 2.2 Troponin I < 0.05 Triglycerides 57 Total Cholesterol 111 LDL Cholesterol, Calc 57 HDL Cholesterol 43 Procalcitonin SARS-CoV-2 (PCR)
[2020-07-27] MEDS: Atorvastatin 40 MG TAB 80 MG PO (19:59)
[2020-07-28] VITALS (9 sets, daily range): BP systolic 122–151; BP diastolic 65–92; PULSE 61–77; RESP 16–21; TEMP 36–36.8; O2SAT 92–97
[2020-07-28] MEDS: Doxycycline Hyclate 100 MG CAP PO ×2 (05:59→18:00)
[2020-07-28] MEDS: Heparin 5,000 UNITS/ML VIAL 5000 UNITS SC ×3 (05:59→21:57)
[2020-07-28 06:56] LABS: Abs Immature Grans 0.02 10^3/uL (0.0-0.06); Absolute Basophil Count 0.05 10^3/uL (0.0-0.2); Absolute Eosinophil Count 0.13 10^3/uL (0.0-0.7); Absolute Lymphocyte Count 1.53 10^3/uL (1.2-3.4); Absolute Monocyte Count 0.78 10^3/uL (0.1-0.8); Basophils % 0.6; Eosinophils % 1.6; HCT 35.7 % (40.0-50.0); HGB 11.8 g/dL (13.5-17.5); Immature Grans % 0.2; Lymphocytes % 18.9; MCH 30.7 pg (27.0-33.0); MCHC 33.1 % (32.0-36.0); MPV 9.3 fL (8.0-11.0); Monocytes % 9.6; Neutrophils % 69.1; Nucleated RBC 0 %; Platelet Count 286 10^3/uL (130-400); RBC 3.84 10^6/uL (4.36-5.78); RDW 14.3 % (11.8-14.1); RDW-SD 48.3 fL; WBC 8.11 10^3/uL (4.4-10.8)
[2020-07-28 07:10] LABS: Anion Gap 8.8 mmol/L (3-11); BUN 49 mg/dL (7-18); CO2 31.2 mmol/L (21.0-32.0); CREATININE 1.6 mg/dL (0.70-1.30); Chloride 100 mmol/L (98-107); Glucose 89 mg/dL (74-106); Potassium 3.7 mmol/L (3.5-5.1); Sodium 140 mmol/L (136-145)
[2020-07-28] MEDS: Furosemide 40 MG/4 ML VIAL IVP ×2 (07:48→15:39)
[2020-07-28] MEDS: Normal Saline Flush 10 ML SYR IVP ×3 (07:49→21:08)
[2020-07-28] MEDS: Metoprolol CR 100 MG TABCR PO (07:49)
[2020-07-28] MEDS: Allopurinol 100 MG TAB PO (07:49)
[2020-07-28] MEDS: Clopidogrel 75 MG TAB PO (07:49)
[2020-07-28] MEDS: Aspirin E.C. 81 MG TABEC PO (07:49)
[2020-07-28] MEDS: Pantoprazole 40 MG TABCR PO (07:49)
--- NOTE | 2020-07-28 08:00 | DI.US_ITS ---
Exam(s) US CAROTID EXAM: US CAROTID CLINICAL HISTORY: carotid stenosis: acute vs chronic TECHNIQUE: Ultrasound performed using standard protocol. COMPARISON: US US ABDOMEN LIMITED from 03/26/2020 FINDINGS: Duplex evaluation of the carotid circulation was performed according to the usual protocol. There is moderate visible atheromatous plaque in the common carotid arteries bilaterally. There is occlusion of the left internal carotid artery at its origin. External carotid artery on the left shows flow velocity elevation to 214 cm/second systolic suggestin g a moderate stenosis. On the right there is flow velocity elevation in internal carotid artery consistent with moderate angela nosis of 50-69 percent luminal diameter. External carotid artery and common carotid artery show unre markable flow velocities. There is bilateral antegrade vertebral flow. IMPRESSION: Occluded left internal carotid artery. Moderate stenosis of 50-69 percent luminal diameter mid to di stal right internal carotid artery. DATA REPOSITORY:
[2020-07-28 08:07] LABS: NT-proBNP 19120 pg/mL (<300)
--- NOTE | 2020-07-28 10:10 | OT.INNT ---
Date of service: 07/28/20 Time of Service: 10:11 Occupational Therapy Notes 07/28/20 OT consult received and pts chart was reviewed, OT will initiate consultation with pt tomorrow. Jody Maldonado OTR/L
--- NOTE | 2020-07-28 10:31 | PDOC.CMPRO ---
- If Service Date Differs Date of service: 07/28/20 Time of Service: 10:31 Care Management Progress Note S/O:Joaquín was sitting up in a chair when CM met with him. He appeared to be in good spirits and engaged readily with CM. Joaquín stated that he is feeling better. He has an MRI today which did not show any acute changes and he is aware of the blockages in his internal carotid arteries. Joaquín stated that he was told it is nothing to worry about. A neurology consultation has been ordered but has not been completed as yet. A: Joaquín is a 79 year old man admitted to [facility] on 07/26/20 with CHF P:Anticipate Joaquín will be discharged home, possibly with new home health services when medically cleared by provider. He will follow up with his PCP, neurology, and discharge plan of care as directed. He will be driven home via private vehicle by family/friends. CM will continue to follow.
--- NOTE | 2020-07-28 13:20 | DI.MRI_ITS ---
Exam(s) MR BRAIN WO EXAM: MR BRAIN WO CLINICAL HISTORY: concern for acute cva TECHNIQUE: Multiplanar multisequence MRI of the brain was performed. COMPARISON: MR MR BRAIN WO from 07/23/2020 MR MR ANGIO BRAIN WO from 07/23/2020 FINDINGS: MR examination of brain was performed according to the usual protocol. The current examination is co mpared with recent MR of July 23 Note is again made of moderate to severe cerebral atrophy and presumed microvascular ischemic changes with periventricular scattered signal abnormalities sparing the corpus callosum. No other signal ab normality identified in the brain. The orbital and temporal bone structures appear intact as does the pituitary. Diffusion weighted imaging shows no evidence of infarction and no change from the prior study. Susceptibility weighted imaging shows no evidence of intracranial hemorrhage. Previously noted occlusion of left internal carotid artery is again seen. IMPRESSION: No evidence of acute/subacute intracranial infarction. Note is again made of cerebral atrophy and diffuse microvascular ischemic changes of white matter. Previously noted left ICA occlusion again seen. DATA REPOSITORY:
--- NOTE | 2020-07-28 14:57 | PGE_ITS ---
Date of Service Date of service: 07/28/20 Time of Service: 14:57 Assessment and Plan Assessment and plan (1) Dysarthria: Status: Acute Assessment and plan: repeat imaging shows no new CVA or pathology to explain his symptoms, which are chronic pending speech eval. Started on plavix, continue baby asa and statin. continue telemetry echo in Feb 2020 shows EF 50%, RVSP is 31.4 mmHg (2) Acute on chronic systolic CHF (congestive heart failure): Status: Acute Assessment and plan: stable, appears euvolemic continue to monitor weights, fluid status continue lasix and metolazone (3) Acute bronchitis: Status: Suspected Assessment and plan: respiratory status stable Procal negative, however CXR with COPD will continue doxy due to sputum color change he is feeling better. Wheezing on excertion, inhaler ordered prn albuterol, acapella. (4) Acute kidney injury superimposed on chronic kidney disease: Status: Acute Assessment and plan: Improved from admission. (5) Pleural effusion on right: Status: Acute Assessment and plan: Likely part of the CHF picture. TSH wnl. Diurese as above (6) DVT prophylaxis: Status: Acute Assessment and plan: Sc heparin (7) Discharge planning issues: Status: Acute Assessment and plan: DNR/DNI Patient was not interested in transfer or intervention. Consider palliative visit on this admission. above discussed with Dr. Moreno Subjective Subjective Patient reports: no new complaints, feels better, tolerating liquids well, tolerating a regular diet, voiding w/o difficulty and afebrile Interval history since last seen: appears at baseline. no new c/o Exam Const General: cooperative and no acute distress [facility] Head: normal to inspection Face and sinus: normal facial exam Eyes General: appearance normal, both eyes and all related structures EOM: EOM intact bilaterally Neck Neck: normal visual inspection and No submandibular swelling Lymphatic: no lymphadenopathy noted Chest Chest: normal inspection of the chest and no tenderness Resp Effort & Inspection: normal respiratory effort and able to speak in complete sentences Auscultation: clear to auscultation bilaterally Cardio Rate: bradycardic Rhythm: regular rhythm GI Inspection: normal to inspection Palpation: soft and nontender Auscultation: normal bowel sounds Skin General skin exam: no rashes or lesions noted Neuro General: patient alert, patient awake, patient oriented x3, gait normal, moves all extremities and no focal motor deficits Cranial Nerves: CN's II-XI intact bilaterally Cognition: normal cognition Speech: other (slurred at baseline) Motor: muscle tone normal throughout and strength 5/5 throughout Sensory Exam: no sensory deficits noted Extrem General: normal to inspection, full ROM, capillary refill normal, no calf tenderness bilaterally and no edema Psych Appearance: grossly normal Mental Status: mental status grossly normal Speech and Movement: speech and movement normal Affect: normal affect Objective Last Vital Signs Temp 36.0 C L 07/28/20 11:22 Pulse 63 07/28/20 11:22 Resp 21 07/28/20 11:22 BP 130/65 07/28/20 11:22 Pulse Ox 92 07/28/20 11:22 Laboratory Results - last 24 hr 07/28/20 07/28/20 06:36 06:36 WBC 8.11 RBC 3.84 L Hgb 11.8 L Hct 35.7 L MCV 93.0 MCH 30.7 MCHC 33.1 RDW 14.3 H Plt Count 286 MPV 9.3 Immature Gran % 0.2 Neutrophils % 69.1 Lymphocytes % 18.9 Monocytes % 9.6 Eosinophils % 1.6 Basophils % 0.6 Nucleated RBC % 0 Absolute Neutrophils 5.60 Absolute Lymphocytes 1.53 Absolute Monocytes 0.78 Absolute Eosinophils 0.13 Absolute Basophils 0.05 Sodium 140 Potassium 3.7 Chloride 100 Carbon Dioxide 31.2 Anion Gap 8.8 BUN 49 H Creatinine 1.6 H Estimated GFR/1.73 m2 41.90 Glucose 89 Calcium 9.0 Magnesium 2.0 NT-Pro-B Natriuret Pep 86750 H
--- NOTE | 2020-07-28 15:09 | PT.INTREAT ---
Date of service: 07/28/20 Time of Service: 10:50 PT Notes Visit Reasons: ACUTE ON CHRONIC SYSTOLIC CHF,RECURRENT SPEECH DEF Inpatient Physical Therapy Treatment Note [facility] Date: 07/28/2020 PRECAUTIONS: Activity as Tolerated SUBJECTIVE: Joaquín is pleasant and agreeable to participating in PT. He states that he is feeling good and wishes that he could get up and move around his room independently. OBJECTIVE: Following a discussion with nursing, patient is cleared to be independent with transfers and ambulation within his room, without an assistive device. PAIN: No c/o pain BED MOBILITY/TRANSFERS Sit-stand: I Stand-sit: I Bed-Chair: I Chair-bed: I GAIT Assistive Device: No AD Weight bearing: Full Assist: S Distance: 600' Deviation: LOB x3 with self-recovery due to distraction THEREX: Patient was instructed in a balance re-education exercise program, as per flow sheet. Exercises included both static and dynamic standing exercises. Patient requires CGA for safety, but does not demonstrate LOB. ASSESSMENT: Patient tolerated session well without complaint. He demonstrates improved balance and tolerated a progression in gait distance without use of assistive device. PLAN: Continue with balance retraining exercises. TREATMENT CODE/TIME: 20 minutes; 95139 (10:50)
[2020-07-28] MEDS: Atorvastatin 40 MG TAB 80 MG PO (21:07)
[2020-07-29 00:45] VITALS: BP 138/71; PULSE 68; O2SAT 96
[2020-07-29 03:37] VITALS: BP 138/74; PULSE 62; RESP 18; TEMP 36.4; O2SAT 96
[2020-07-29] MEDS: Polyethylene Glycol 3350 17 GM PACKET PO (06:03)
[2020-07-29] MEDS: Doxycycline Hyclate 100 MG CAP PO (06:04)
[2020-07-29] MEDS: Docusate Sodium 100 MG CAP PO (06:04)
[2020-07-29] MEDS: Heparin 5,000 UNITS/ML VIAL 5000 UNITS SC (06:04)
[2020-07-29 07:00] VITALS: PULSE 78
[2020-07-29 07:35] VITALS: BP 125/62; PULSE 60; RESP 16; TEMP 36.7; O2SAT 96
[2020-07-29] MEDS: Furosemide 40 MG/4 ML VIAL IVP (07:54)
[2020-07-29] MEDS: Metoprolol CR 100 MG TABCR PO (07:55)
[2020-07-29] MEDS: Acetaminophen 325 MG TAB 650 MG PO (07:55)
[2020-07-29] MEDS: Allopurinol 100 MG TAB PO (07:55)
[2020-07-29] MEDS: Aspirin E.C. 81 MG TABEC PO (07:55)
[2020-07-29] MEDS: Pantoprazole 40 MG TABCR PO (07:55)
[2020-07-29] MEDS: Normal Saline Flush 10 ML SYR IVP (07:55)
[2020-07-29] MEDS: Clopidogrel 75 MG TAB PO (07:55)
--- NOTE | 2020-07-29 10:36 | CMDISCH_ITS ---
- If Service Date Differs Date of service: 07/29/20 Time of Service: 10:37 LACE Index Scoring Tool - Questions: Length of Stay (in days): 3 Acuity (Admit via E.D.?): Yes E.D. Visits: 6 - Answers: Total Score: 10 Risk of Readmission: High Risk Care Management Discharge Reason for Hospitalization: Acute on chronic systolic CHF and recurrent speech deficits. Discharge Plan: Joaquín will be discharged home with no new services. He will follow up with his PCP, neurology, and discharge plan of care as directed. He will be driven home via private vehicle by family/friends. Patient/Family Education Needs: Discharge instructions, limitations, follow up p tabitha of care, including Ask Me Three and self management.
--- NOTE | 2020-07-29 12:29 | W.NEUROCONSU ---
Date of service: 07/29/20 Time of Service: 12:29 Assessment and Plan Assessment and plan (1) Internal carotid artery occlusion: Status: Acute (2) Carotid stenosis, right: Status: Acute (3) Dysarthria: Status: Acute Assessment and plan: Mr. Yuan is a 79 year-old, right-handed man who presents with the following: #1. Dysarthria. This is chronic per him, ongoing for the last 4-[address] consult, but findings today appear stable with ST findings in Mar 2020. Appears to have an oral-lingual type complicated by poor dentition and hearing loss. No obvious neurological etiology. #2. Left carotid occlusion and right carotid stenosis. R ICA stenosis 50-70% as per CUS that was poorly seen on MRA neck (CTA neck was poor study). Asymptomatic. No role for DAPT. He should continue aspirin plus atorvastatin. Generally not interested in intervention, but I still recommend vascular surgery referral to [facility] to discuss options and for continued follow-up of findings. Avoid hypotension - maintain SBP 130+. He will follow-up in neurology as needed. Thank you for this consultation. Please call with any further questions or concerns. History of Present Illness History of Present Illness Chief Complaint: dysarthria Narrative: Handedness: right. HPI: Mr. Yuan is a 79 year-old man with HTN, HLD, CHF, ischemic cardiomyopathy, gout prostate cancer, COPD, and GERD. He was seen in the ER on 07/23/20 after he had a vrief experience of dizziness/lightheadedness/pre-syncope. He underwent work-up as below. He was discharged back to home. ER 07/23/20 Work-up/Findings: -O2 sat high 80s and low 90s, BP mildly high -EKG SB -Hg 11, trop neg, Cr 1.4 -CTH (07/23/20): moderate cerebral atrophy with what appears to be small chronic bilateral hygromas. I reviewed these images personally and this is my personal interpretation. -CTA head/neck (07/23/20): poor bolus timing rending study essentially unreadable. Noted short segment L ICA occlusion. I reviewed these images personally and this is my personal interpretation. -MRI brain (07/23/20): no acute findings. Mild chronic vascular disease changes and cerebral atrophy. I reviewed these images personally and this is my personal interpretation. -MRA head/neck (07/23/20): Limited study due to movement. L ICA occlusion. Appears to have moderate R ICA stenosis. I reviewed these images personally and this is my personal interpretation. He presented back to the ER on 07/26/20 for increased shortness of breath, worse than baseline. During his work-up, family noted concerns for worsening dysarthria x 1 week. He has known chronic dysarthria of unclear duration - he states 5+ years. He has only been re-introduced into our medication system after some years away in March 2020. He was seen by ST at that time who noted dysarthric speech, 50-60% intelligible. Given known L ICA occlusion, there was concern he could have had a stroke. He was started on clopidogrel in addition to baseline aspirin 81mg and atorvastatin 80mg daily. He has since undergone the work-up below. Unclear if there has been any change in his speech. He notes trouble swallowing solids x several years as well, complicated by his lack of teeth and he admits to not making the best food choices. Work-up during admission: -Cr 1.8, BNP increased, trop negative, LDL 57 -CTH (07/26/20): no acute findings. I reviewed these images personally and this is my personal interpretation. -MRI brain (07/28/20): no acute findings. Unchanged from previous. I reviewed these images personally and this is my personal interpretation. -CUS (07/28/20): L ICA occlusion. R ICA 50-70% stenosis. Consults Requesting physician: Mónica Moreno Review of Systems All systems reviewed & are unremarkable except as noted in HPI and below PFSH Medical History Bladder neck contracture CAD (coronary artery disease) CHF (congestive heart failure) EF 50% by echo in 03/19 Chronic kidney disease DNI (do not intubate) DNR (do not resuscitate) Hypercholesterolemia Hypertension Ischemic cardiomyopathy Palliative care patient POLST (Physician Orders for Life-Sustaining Treatment) Prostate cancer Surgical History History of heart artery stent S/P prostatectomy Status post THR (total hip replacement) Family History Son No problems noted. Social History Smoking/Tobacco Use Status: Former Tobacco Use Smoking risk assessment performed?: Yes Alcohol Intake: current Alcohol type: other Drug use: Never Substance use type: does not use Caregiver/Support person: Yes Communication Needs: Hard of Hearing and Corrective Lenses Education Level: high school Do you need help understanding health information?: Always Current gender identity: male How often do you talk on the phone with friends or family?: three or more times per week How often do you get together with friends or relatives?: three or more times per week Panel score (0-1 are the most socially isolated patients): 1 What type of physical activity do you participate in: walking Duration: 15-30 minutes/day Special deanna needs: No Seatbelt use: always Do you feel safe at home: Yes Do you feel safe in your relationship?: Yes Additional Social history: Son Berto is his main person who helps care for him. He is a , but was posted in [place] during the [employer] era. He has insurance with both medicare and [employer]. Visit Medication and Allergies Active Medications Generic Name Dose Route Start Last Admin Trade Name Freq PRN Reason Stop Dose Admin Acetaminophen 650 mg 07/26/20 15:36 07/29/20 07:55 Acetaminophen 325 Mg Tab PO 650 mg Q4H PRN PRN Administration Al Hydrox/Mg Hydrox/Simethicone 30 ml 07/26/20 15:36 Mylanta Suspension 30 Ml Cup PO Q2H PRN PRN Albuterol Sulfate 2 puff 07/26/20 17:29 Albuterol Hfa 8 Gm 60 Puff Inh IH Q4H PRN PRN Allopurinol 100 mg 07/27/20 08:30 07/29/20 07:55 Allopurinol 100 Mg Tab PO 100 mg DAILY JASON Administration Aspirin 81 mg 07/27/20 08:30 07/29/20 07:55 Aspirin E.C. 81 Mg Tabec PO 81 mg DAILY JASON Administration Atorvastatin Calcium 80 mg 07/26/20 20:00 07/28/20 21:07 Atorvastatin 40 Mg Tab PO 80 mg QPM [facility] Administration Device 1 each 07/26/20 18:00 Inhaler, Assist Device MC DIRECTED [facility] Diclofenac Sodium 0 gm 07/27/20 20:00 07/29/20 11:30 Diclofenac 1% Gel 100 Gm Tube TP Not Given QID [facility] Dimethicone/Zinc Oxide 0 gm 07/26/20 15:31 Lisette Protect Cream 142 Gm Tube TP PRN PRN Docusate Sodium 100 mg 07/26/20 15:36 07/29/20 06:04 Docusate Sodium 100 Mg Cap PO 100 mg TID PRN PRN Administration Doxycycline Hyclate 100 mg 07/26/20 18:00 07/29/20 06:04 Doxycycline Hyclate 100 Mg Cap PO 100 mg Q12H [facility] Administration Furosemide 40 mg 07/27/20 08:00 07/29/20 07:54 Furosemide 40 Mg/4 Ml Vial IVP 40 mg BID@0800,1600 [facility] Administration Heparin Sodium (Porcine) 5,000 units 07/26/20 22:00 07/29/20 06:04 Heparin 5,000 Units/Ml Vial SC 5,000 units Q8H [facility] Administration IV Miscellaneous Supplies 1 each 07/26/20 13:45 Iv Access IV DIRECTED [facility] Magnesium Hydroxide 30 ml 07/26/20 15:36 Milk Of Magnesia 30 Ml Cup PO DAILY PRN PRN Metolazone 0 mg 07/27/20 08:00 07/27/20 08:55 Metolazone 2.5 Mg Tab PO 2.5 mg MoFr@0800 [facility] Administration Metoprolol Succinate 100 mg 07/27/20 08:30 07/29/20 07:55 Metoprolol Cr 100 Mg Tabcr PO 100 mg DAILY [facility] Administration Nitroglycerin 0.4 mg 07/26/20 15:45 Nitroglycerin 0.4 Mg Tab SL Q5 MIN PRN X3 PRN Pantoprazole Sodium 40 mg 07/27/20 07:30 07/29/20 07:55 Pantoprazole 40 Mg Tabcr PO 40 mg DAILY@0730 [facility] Administration Polyethylene Glycol 17 gm 07/26/20 15:36 07/29/20 06:03 Polyethylene Glycol 3350 17 Gm Packet PO 17 gm DAILY PRN PRN Administration Constipation Sodium Chloride 0 ml 07/26/20 13:41 07/29/20 07:55 Normal Saline Flush 10 Ml Syr IVP 10 ml PRN PRN Administration Allergies amlodipine Adverse Reaction (Intermediate, Unverified 07/26/20 13:50) Swelling/Edema enalapril maleate [From Vasotec] Adverse Reaction (Intermediate, Unverified 07/26/20 13:50) cough enalaprilat dihydrate [From Vasotec] Adverse Reaction (Intermediate, Unverified 07/26/20 13:50) cough Exam Narrative Exam Narrative: Physical Exam: Gen: Patient of apparent stated age, NAD Head and face: no facial or cranial abnormalities; poor dentition - only one tooth left Neck: Supple, no meningismus, no occipital tenderness CV: + S1, S2, RRR, no murmur Resp: CTA B/L Abd: soft, nontender, nondistended Ext: No edema. No clubbing or cyanosis. No bony deformity. Compression stockings on. Neuro Exam: Language: fluency, naming, repetition, and comprehension intact; Mental Status: AAOx3, current events intact, fund of knowledge intact; Speech: moderate dysarthria, seems oral-lingual with more difficulty Pu and Tu than with Ku Cranial nerves: Funduscopy: not performed CN II: visual spencer intact CN III, IV, : extraocular movements intact, no nystagmus, pupils symmetric and reactive to light CN V: face sensation intact to LT and PP CN VII: no facial asymmetry noted CN VIII: hearing reduced CN IX, X: palate rises symmetrically CN XI: trapezius/SCM 5/5 bilaterally CN XII: protrudes tongue symmetrically Sensory: intact to LT, PP in all extremities Motor: bulk and tone intact. Fine motor movements intact bilaterally. No pronator drift. Strength 5/5 throughout including the deltoids, biceps, triceps, wrist extensors, hip flexors, knee flexors, knee extensors, ankle flexors, and ankle extensors. Reflexes:hyporeflexic throughout with absent LE reflexes; toes down going bilaterally; Coordination: FTN and HTS intact bilaterally Gait: not tested Results Last Vital Signs Temp 36.7 C 07/29/20 07:35 Pulse 60 07/29/20 07:35 Resp 16 07/29/20 07:35 BP 125/62 07/29/20 07:35 Pulse Ox 96 07/29/20 07:35 Labs Result diagrams: 07/28/20 06:36 07/28/20 06:36
--- NOTE | 2020-07-29 12:56 | STREC_ITS ---
Date of service: 07/29/20 Time of Service: 10:29 Speech Therapy Recommendations Report ST Recommendations: RELIEF CHARGE NURSE Non-Treatment Note RELIEF CHARGE NURSE consult received; chart reviewed. Patient screened mid-morning, jovial, able to communicate wants/needs effectively, however does require communication partner to request repetition at times for improved clarity; patient appears to be unaffected by his speech deficits per brief interview. Patient is able to recall outcomes from recent imaging during this hospital stay, and is agreeable to brief swallow screening given history of dysphagia; indicates he is not interested in full speech/language evaluation today as he is ?doing fine with it?. Patient reports he has a plan to reschedule appointment with Veronica Kim. Discussed option for outpatient speech therapy if desired by patient, who states he will ?think about it?. [place] Swallow Protocol: Pass Swallowing Recommendations: No change(s) recommended; patient remains on IDDSI Levels 7/0 (Regular solids/thin liquids). Patient is able to recall dysphagia management strategies independently today (ie, reduced rate/volume, full mastication, rationale for use of respiratory devices as outlined; denies globus with solid foods, and is able to demonstrate comprehension re: importance of oral hygiene, overt s/s aspiration to be monitored Speech/Communication Recommendations: Comprehension: _Reduce rate of speech / complexity of words and repeat as needed when talking to patient given lack of visual cues to speaker's mouth. _Rephrase sentences and/or concepts if comprehension is unclear. _Provide visual aids/resources whenever possible. _Offer simplified written text whenever possible for patient to review with caregivers/staff. _Utilize Yes/No questions to determine understanding after new concepts are presented. Expression: _Encourage use of LESS technique (Loud, Exaggerated, Slow, [id number]) when patient is not comprehensible _Allow patient additional time to express self and/or multiple attempts to produce intelligible speech _For speech/language difficulties during conversation: _Encourage patient to describe what things look/feel like, where they may be located, how they function, and/or use related words (synonyms) _Provide patient with visual aids, and assistance with reading text aloud as needed _Encourage use of relevant gestures to enhance expression Thank you for this consult. Lucy Jin MA CCC-RELIEF CHARGE NURSE Speech Language Pathologist Coding
--- NOTE | 2020-07-29 13:16 | OTIE_ITS ---
Occupational Therapy Notes Inpatient Occupational Therapy Evaluation Date: 07/29/20 Referring Doctor: Mónica Moreno MD OT Orders: Non-Urgent Precautions: Fall, standard, full PATIENT PROFILE/ADMITTING DIAGNOSIS: Pt is a 79 year old male who is currently in the ICU and admitted for the following dx of carotid stenosis, CHF, dysphasia, acute brochitis, dysarthria, palpitations, dizziness, pleural effusion. Past Medical History: Medical History Bladder neck contracture CAD (coronary artery disease) CHF (congestive heart failure) EF 50% by echo in 03/19 Chronic kidney disease DNI (do not intubate) DNR (do not resuscitate) Hypercholesterolemia Hypertension Ischemic cardiomyopathy Palliative care patient POLST (Physician Orders for Life-Sustaining Treatment) Prostate cancer Surgical History History of heart artery stent S/P prostatectomy Status post THR (total hip replacement) Social History/Home Situation: Pt states that he lives alone in a studio apartment in [place], [place] He has a son Aiden who lives in [place], [place]. and is supportive. In addition, Joaquín has many friends in the area. He is independent at baseline. Equipment owned/DME: Unable to assess SUBJECTIVE: Pt was sitting in the chair when OT arrived. He was agreeable to OT session. OBJECTIVE: General Observation: Pleasant, awake and alert, able to answer questions appropriately Mental Status: A&Ox3 Pain: no c.o pain ROM: RUE AROM WFL L UE AROM WFL STRENGTH: RUE 5/5 throughout LUE 4/5 throughout FUNCTIONAL MOBILITY/ADLS: BATHING standing at sink Bathing UE (I) face, abdomen, (B) UE Bathing LE (I) DRESSING standing at sink Dressing UE (I) don and doffing hospital gown Dressing LE (I) don and doffing (B) socks GROOMING standing at sink (I) with brushing hair. TOILETING (I) on toilet EATING NT BALANCE: Static sitting Normal Dynamic Sitting Normal SPECIAL TESTS: Daily Activity Limitations Standardized Measure [facility] AM -PAC ?6 clicks? Daily Activity Inpatient Short Form: Raw score: 20 INFORMED CONSENT/EDUCATION: Pt instructed in purpose of OT Consult and plan of care. ASSESSMENT: Patient is a 79-year-old male referred to occupational therapy services with diagnosis of carotid stenosis, CHF, dysphasia, acute brochitis, dysarthria, palpitations, dizziness, pleural effusion. Pt was able to perform his ADLs (I) at OT consult, he had no issues with dressing or bathing routines and was able to perform in the standing and sitting position. Patient is assessed as a Low 75771 complexity based on the following: History: see above Examination: see above Presentation: evolving Decision Making: AMPAC score 20 GOALS N/A seen for OT consult only. PLAN OF CARE/TREATMENT PLAN: Discharge from OT services DISCHARGE RECOMMENDATIONS Based on pts current level of function and significant improvements in his functional (I) OT recommends that pt return home when medically cleared per MD. TREATMENT TIME/MINUTES/CODES 57771, 56290, 15 minutes (07:15) Jody Maldonado OTR/[facility]
--- NOTE | 2020-07-29 13:56 | W.PM.DS.N ---
Date of service: 07/29/20 Time of Service: 13:56 DS: Diagnosis Discharge Diagnosis (1) Internal carotid artery occlusion: Status: Acute (2) Carotid stenosis, right: Status: Acute (3) Dysarthria: Status: Acute Discharge Plan Disposition Patient Disposition: HOME Condition: Stable Discharge Details Reason For Visit: ACUTE ON CHRONIC SYSTOLIC CHF,RECURRENT SPEECH DEF Admit Date/Time: 07/26/20 15:36 Admit Provider: Mónica Moreno Attending Provider: Mónica Moreno Primary Care Provider: Taz Collins Hospital Course Hospital Course: This is a 79 year old male with history of CHF, chronic kidney disease, hypertension, bladder outlet obstruction CAD who presents to the ED for evaluation of dysarthria. He underwent routine stroke evaluation and was admitted to med/surg for further management. he was started on plavix. all imaging did not reveal a source or evidence of acute CVA. His dysarthria is actually chronic, occurring over the past 4-5 years. he has been seen by speech in the past and again evaluated on this admission. He was also seen by neurology who recommends discontinuing plavix as not indicated with no evidence of stroke. By Dr Yancey evaluation he appears to have an oral-lingual type dysarthria complicated by poor dentition and hearing loss. No obvious neurological etiology. Imaging did reveal left carotid occlusion and right carotid stenosis. R ICA stenosis as per CUS that was not seen on MRA neck (CTA neck was poor study) She recommends no role for DAPT and he should continue aspirin plus atorvastatin. She also recommend vascular surgery referral to [facility] to discuss options and for continued follow-up of findings. Also, avoid hypotension - maintain SBP 130+. He is eating and drinking well and appears at his baseline. he declines home health services. He was also noted to have sputum, changed from baseline and was treated with doxycycline for acute bronchitis. his respiratory status remained stable with no oxygen requirements. I will discontinue antibiotics on discharge. he is hemodynamically stable and will be discharged to home. he should follow up with pcp and vascular as recommended. discharge discussed with Dr Moreno Home Meds and New Rx's Prescriptions: Continued nitroglycerin 0.4 MG tablet, sublingual 0.4 mg Sublingual PRN PRNRF: 0 acetaminophen [Tylenol Arthritis Pain] 650 MG tablet extended release 1,300 mg PO Q6H PRN PRNQty: 0 RF: 0 aspirin [Aspir-81] 81 MG tablet,delayed release (DR/EC) 81 mg PO DAILY RF: 0 pantoprazole 40 mg Tablet,Delayed Release (Dr/Ec) 40 mg PO DAILY@0730 Qty: 30 RF: 0 allopurinol 100 MG tablet 100 mg PO DAILY Qty: 0 RF: 0 metoprolol succinate 25 MG tablet extended release 24 hr 100 mg PO DAILY Qty: 0 RF: 0 potassium chloride 20 mEq tablet extended release 20 meq PO DAILY RF: 0 metolazone 2.5 mg tablet See Rx Instructions .ROUTE .COMPLEX RF: 0 atorvastatin 40 mg tablet 80 mg PO DAILY RF: 0 furosemide 40 mg Tablet 40 mg PO BID@0830,1600 Qty: 60 RF: 0 Discharge Instructions Instructions: Heart Failure (DC), Carotid Artery Disease (DC), Acute Bronchitis (ED) Additional Instructions: you have finished a course of antibiotics for bronchitis. report return of symptoms immedicately take all medication as directed you have left carotid occlusion and right carotid stenosis, neurology does recommend outpatient referral to vascular surgery. you should continue your aspirin and atorvastatin to reduce stroke risk. These findings are not what was causing your speech disturbances. Stand Alone Forms: Nursing Discharge Form Referrals: [facility] [place] [Outside] (vascular surgery referral for carotid artery occulsion and stenosis. ) Taz Collins MD [Primary Care Provider] - 07/31/20 10:30 am Activity:: Activity as Tolerated Equipment/Supplies:: No Equipment Needed Diet:: As Tolerated Discharge Orders Discharge Orders: Discharge Order (Routine); Ordered 07/29/20 Ordered By: Jayshree Amaya DS: Summary Time Spent with Patient providing and/or coordinating discharge services: Greater than 30 minutes Status at Discharge Functional status at discharge: independent ambulation Overall status at discharge: patient is back to baseline Mental Status: mental status grossly normal Speech and Movement: speech and movement normal Mood: congruent mood Affect: normal affect Exam Const General: cooperative and no acute distress HENMT Head: normal to inspection Face and sinus: normal facial exam Eyes General: appearance normal, both eyes and all related structures EOM: EOM intact bilaterally Neck Neck: normal visual inspection and No submandibular swelling Lymphatic: no lymphadenopathy noted Chest Chest: normal inspection of the chest and no tenderness Resp Effort & Inspection: normal respiratory effort and able to speak in complete sentences Auscultation: clear to auscultation bilaterally Cardio Rate: bradycardic Rhythm: regular rhythm GI Inspection: normal to inspection Palpation: soft and nontender Auscultation: normal bowel sounds Skin General skin exam: no rashes or lesions noted Neuro General: patient alert, patient awake, patient oriented x3, gait normal, moves all extremities and no focal motor deficits Cranial Nerves: CN's II-XI intact bilaterally Cognition: normal cognition Speech: other (slurred at baseline) Motor: muscle tone normal throughout and strength 5/5 throughout Sensory Exam: no sensory deficits noted Extrem General: normal to inspection, full ROM, capillary refill normal, no calf tenderness bilaterally and no edema Psych Appearance: grossly normal Mental Status: mental status grossly normal Speech and Movement: speech and movement normal Mood: congruent mood Affect: normal affect DS: Data Vitals/I&O Vitals and I&O: Vital Signs Temperature 36.7 C 07/29/20 07:35 Temperature Source Tympanic 07/29/20 07:35 Pulse 60 07/29/20 07:35 Pulse Rhythm Regular 07/29/20 07:55 Pulse 64 07/26/20 16:01 Respiratory Rate 16 07/29/20 07:35 Respiratory Effort Non-Labored 07/29/20 07:55 Respiratory Depth Normal 07/29/20 07:55 Respiratory Pattern Normal 07/29/20 07:55 Blood Pressure 125/62 07/29/20 07:35 Blood Pressure Mean 97 07/26/20 16:01 Blood Pressure Position Supine 07/26/20 13:43 Pulse Oximetry 96 07/29/20 07:35 Oxygen Delivery Method Room Air 07/29/20 07:35 Oxygen Flow Rate 0 07/29/20 07:35 Pain Level 2 07/29/20 07:55 Comment 07/27/20 23:13 Intake & Output 07/28/20 07/29/20 07/29/20 23:59 11:59 23:59 Intake Total 500 / 890 130 / 130 Output Total 950 / 3250 1050 / 1050 Balance -450 / -2360 -920 / -920 Weight 75.4 kg Intake: IV 30 10 / 10 Oral 480 / 860 120 / 120 Output: Urine 950 / 3250 1050 / 1050 Other: Urine Color Yellow Yellow Urine Appearance Clear Clear Urine Odor Normal Normal Comment voided in the toilet per patient voided in the toilet per patient Voiding Methods Toilet Toilet PFS Medical History Bladder neck contracture CAD (coronary artery disease) CHF (congestive heart failure) EF 50% by echo in 03/19 Chronic kidney disease DNI (do not intubate) DNR (do not resuscitate) Hypercholesterolemia Hypertension Ischemic cardiomyopathy Palliative care patient POLST (Physician Orders for Life-Sustaining Treatment) Prostate cancer Surgical History History of heart artery stent S/P prostatectomy Status post THR (total hip replacement) Family History Son No problems noted. Social History Smoking/Tobacco Use Status: Former Tobacco Use Smoking risk assessment performed?: Yes Alcohol Intake: current Alcohol type: other Drug use: Never Substance use type: does not use Caregiver/Support person: Yes Communication Needs: Hard of Hearing and Corrective Lenses Education Level: high school Do you need help understanding health information?: Always Current gender identity: male How often do you talk on the phone with friends or family?: three or more times per week How often do you get together with friends or relatives?: three or more times per week Panel score (0-1 are the most socially isolated patients): 1 What type of physical activity do you participate in: walking Duration: 15-30 minutes/day Special deanna needs: No Seatbelt use: always Do you feel safe at home: Yes Do you feel safe in your relationship?: Yes Additional Social history: Son Berto is his main person who helps care for him. He is a , but was posted in [place] during the [employer] era. He has insurance with both medicare and [employer].
[2020-07-29 14:18] VITALS: PULSE 67
--- NOTE | 2020-07-29 15:18 | CHAPLAIN ---
Joaquín was very pleasant and easily engaged in a conversation. He believes he'll be discharged today. Shared some personal history and clearly liked to joke and laugh. He said his son will pick him up.
--- NOTE | 2020-07-29 16:06 | PT.INTREAT ---
Date of service: 07/29/20 Time of Service: 11:40 PT Notes Visit Reasons: ACUTE ON CHRONIC SYSTOLIC CHF,RECURRENT SPEECH DEF Inpatient Physical Therapy Treatment Note [facility] Date: 07/29/2020 SUBJECTIVE: Joaquín is very pleasant and is looking forward to going for a walk. He states that he is going to be discharged to home later today, which he is looking forward to. OBJECTIVE: PAIN: No c/o pain BED MOBILITY/TRANSFERS Supine-sit: I Sit-supine: I Sit-stand: I Stand-sit: I Bed-Chair: I Chair-bed: I GAIT Assistive Device: No AD Weight bearing: Full Assist: I Distance: ~1000' Deviation: None STAIRS: Up/down 3x4 and 2x6 using B rails and a step-over pattern independently ASSESSMENT: Patient demonstrates independence with gait and stair negotiation at this time. PLAN: Discharge to home without PT services when medically ready. TREATMENT CODE/TIME: 15 minutes; 26609 (11:40)
--- NOTE | 2020-07-29 16:40 | PT.INDS ---
Date of service: 07/29/20 PT Notes Visit Reasons: ACUTE ON CHRONIC SYSTOLIC CHF,RECURRENT SPEECH DEF Physical Therapy Inpatient Discharge Summary Date: 07/29/20 Dates of service: 07/27/2020 through 07/29/2020 This is a clinical summary of care provided for the duration of dates listed above. No charge was made in the completion of this documentation. Referring Doctor: Mónica Moreno MD PT Orders: PT CONSULT: Limited ability Precautions: Standard Patient Profile/Admitting Diagnosis: Patient presented to ER on 07/26/20 with c/o increased SOB x 2 months with garbled speech. Admitted for medical management with workup suggesting acute on chronic exacerbation CHF, dysphasia with speech and neuro consultations in the works, chronic CAD, ICA occlusion, and acute bronchitis. PMHX: Medical History Bladder neck contracture CAD (coronary artery disease) CHF (congestive heart failure) EF 50% by echo in 03/19 Chronic kidney disease DNI (do not intubate) DNR (do not resuscitate) Hypercholesterolemia Hypertension Ischemic cardiomyopathy Palliative care patient POLST (Physician Orders for Life-Sustaining Treatment) Prostate cancer Surgical History History of heart artery stent S/P prostatectomy Status post THR (total hip replacement) Social History/Home Situation: Lives alone in a 2 story home, only residing on the first floor. He has 3 steps to enter with a rail. He is independent with self care, ADL's and taper/finisher, and he continues to drive. He has a son who lives in [facility] who is supportive. He has no animals, he has no lifeline. He does not use an assistive device. Current Functional Limitations: Requires supervision with transfers and ambulation Equipment Owned/DME: None Subjective: Denies any pain, he is overall feeling very good this morning. He does use oxygen at home. He explains he was about to enter some type of PT treatment for balance, but his dysphasia makes this difficult to understand. Objective: General Observation: NT. See most recent PROGRAM ASSOCIATE notes. NT. See most recent PROGRAM ASSOCIATE notes.. Mental Status: NT. See most recent PROGRAM ASSOCIATE notes. Pain: NT. See most recent PROGRAM ASSOCIATE notes. Vital Signs: NT. See most recent PROGRAM ASSOCIATE notes. ROM: Right Upper Extremity: WFL Left Upper Extremity: WFL Right Lower Extremity: WFL Left Lower Extremity: WFL Strength: Right Upper Extremity: Grossly 4/5 Left Upper Extremity: Grossly 4/5 Right Lower Extremity: Grossly 5/5 Left Lower Extremity: Grossly 5/5 Sensation: WNL Bed Mobility/Transfers: Supervision with all transfers and ambulation. Independent with bed mobility. Gait: Patient is able to negotiate up to 1000 feet on level surface and patient without the use of an assistive device with full weightbearing without JOHN. Stairs: Able to complete three 4 inch steps into 6 inch step to holding onto bilateral rails independently with step over step pattern. Balance: Static Sitting: Good Dynamic Sitting: Good Static Standing: Good Dynamic Standing: Fair Eubanks balance score: 45/56, at low risk for falls. Assessment: eubanks Balance Score of 45/56 indicating low risk for falls at time of discharge. Patient is a 79 year old male referred to physical therapy services with the diagnosis of limited ability in the setting of acute on chronic CHF, dysphasia, CAD, acute brochitis, and ICA occlusion. Goals: Goals X1 week 1. Supine-Sit I MET 2. Sit-Supine I MET 3. Sit-Stand I MET 4. Stand-Sit I MET 5. Bed-Chair I MET 6. Chair-Bed I MET 7. Gait 300 ft I MET 8. Stairs I MET 9. Independent with home exercise program MET 10. Balance 42/56 MET DISCHARGE RECOMMENDATIONS: Home, with outpatient PT referral for continued balance rehabilitation TREATMENT CODE/TIME: LA Thank you for the opportunity to participate in the care of this patient. Krystin Serna PT, DPT, CLT [facility] [place], [place]
== END 2020-07-29 15:20 | disposition home or self-care (01) | DRG 291 ==
LOC: ER 13:42 → MS 16:21
PROVIDERS: Nurse Practitioner Family; Physician Assistant; Admitting Provider Internal Medicine; Emergency Provider Physician Assistant; PCP Internal Medicine; Visit Provider Internal Medicine
DX: I13.0 Hypertensive heart and chronic kidney disease with heart failure and stage 1 through stage 4 chronic kidney disease, or unspecified chronic kidney disease (principal); I50.23 Acute on chronic systolic (congestive) heart failure; N17.9 Acute kidney failure, unspecified; J44.0 Chronic obstructive pulmonary disease with (acute) lower respiratory infection; Z20.822 Contact with and (suspected) exposure to COVID-19; I65.23 Occlusion and stenosis of bilateral carotid arteries; I25.10 Atherosclerotic heart disease of native coronary artery without angina pectoris; N18.9 Chronic kidney disease, unspecified; Z66 Do not resuscitate; E78.00 Pure hypercholesterolemia, unspecified; I25.5 Ischemic cardiomyopathy; C61 Malignant neoplasm of prostate; Z95.5 Presence of coronary angioplasty implant and graft; Z87.891 Personal history of nicotine dependence; R47.1 Dysarthria and anarthria; J20.9 Acute bronchitis, unspecified; N32.0 Bladder-neck obstruction
CPT/HCPCS: 36415; 80048; 80053; 80061; 84145; 87635; 93005; 96374; 97162; 97165; 97530; 97535; 99223; 99285; 70450; 70551; 71046; 83735; 83880; 84484; 85025; 93010; 93880; 99232; 99233; 99239; J1644; J1940

== ENCOUNTER → 2020-07-28 08:10 | Outpatient (BNVA) | payer MEDICARE, OTHER, SELFPAY | PROVIDERS: PCP Internal Medicine; Referring Provider Internal Medicine; Visit Provider Psychiatry & Neurology Neurology | DX: R69 Illness, unspecified (principal) ==

== ENCOUNTER 2020-08-19 09:47 | Emergency (ER) | payer MEDICARE, OTHER, SELFPAY ==
[2020-08-19] VITALS (44 sets, daily range): BP systolic 142–183; BP diastolic 71–103; PULSE 59–119; RESP 17–35; TEMP 36.2–36.5; O2SAT 92–98
--- NOTE | 2020-08-19 09:45 | RT.EKG_ITS ---
APPROVED REPORT Exam: Resting ECG Reason for Exam: dizzy Patient Location: E HR:84 bpm ECG Measurements Heart Rate 84 AXIS SD [id number] P [id number] QRSd 141 QRS -12 QT 443 T 40 QTc 524 Conclusion Atrial fibrillation...V-rate 65- 96, irreg A-activity Paired ventricular premature complexes...sequence of 2 V complexes Right bundle branch block...QRSd>120, terminal axis(90,270). Afib. PVCs. No STEMI. No significant change from previous. I have reviewed and interpreted ECG and agree with software generated interpretation.
--- NOTE | 2020-08-19 09:55 | ED.GENADUL_ITS ---
Discharge Plan Disposition Patient Disposition: HOME Condition: Improving Discharge Details Clinical Impression: Chronic shortness of breath, Dizziness Primary Care Provider: Taz Collins ED Provider: Renae Tapia Home Meds and New Rx's Prescriptions: Continued nitroglycerin 0.4 MG tablet, sublingual 0.4 mg Sublingual PRN PRNRF: 0 acetaminophen [Tylenol Arthritis Pain] 650 MG tablet extended release 1,300 mg PO Q6H PRN PRNQty: 0 RF: 0 aspirin [Aspir-81] 81 MG tablet,delayed release (DR/EC) 81 mg PO DAILY RF: 0 pantoprazole 40 mg Tablet,Delayed Release (Dr/Ec) 40 mg PO DAILY@0730 Qty: 30 RF: 0 allopurinol 100 MG tablet 100 mg PO DAILY Qty: 0 RF: 0 metoprolol succinate 25 MG tablet extended release 24 hr 100 mg PO DAILY Qty: 0 RF: 0 potassium chloride 20 mEq tablet extended release 20 meq PO DAILY RF: 0 metolazone 2.5 mg tablet See Rx Instructions .ROUTE .COMPLEX RF: 0 atorvastatin 40 mg tablet 80 mg PO DAILY RF: 0 furosemide 40 mg Tablet 40 mg PO BID@0830,1600 Qty: 60 RF: 0 Discharge Instructions Instructions: Dyspnea (ED), Dizziness (ED) Additional Instructions: Continue to take your regular medications as directed. Follow-up with your scheduled appointment with [facility] vascular surgery in September. Follow-up with your primary care doctor in 1 week. Return to the emergency department with any worsening or new concerning symptoms. Discharge Data Discharge Date/Time-TO BE ENTERED AT DEPARTURE: 08/19/20 15:37 Discharge Physician: Renae Tapia Medical Decision Making 79-year-old male who is DNR/DNI with multiple chronic medical problems including CAD, CHF, CKD, ischemic cardiomyopathy, coronary stent who presents for dizziness and shortness of breath for several years, with multiple recurrent episodes, last episode since last night. Patient was admitted here earlier this month and discharged after found to have dysarthria which was evaluated by neurology and thought not to be related to her neurological source but rather due to poor dentition and hearing loss and advised against DAPT and to continue aspirin plus atorvastatin. He was noted to have carotid stenosis and was advised to follow-up with [facility] vascular surgery with whom he has an appointment on October 22. Heart rate 80s to 100s, A. fib, PVCs. No significant change from previous. Patient denies chest pain. He currently denies any dizziness or shortness of breath. Considering patient's age and history, will obtain screening labs, CTA head and neck, chest x-ray. Labs and imaging reviewed. Normal white blood cell count. Hemoglobin 12. Increase in LFTs compared to previous. Improvement in BNP at 15 662. Troponin negative. Chest x-ray appears improved compared to previous. CTA head and neck unchanged compared to previous. Repeat troponin negative. Repeat EKG unchanged. Patient reassessed and he feels much better and denies any shortness of breath or dizziness and feels good to go home. Patient was able to ambulate and denies any complaints. Advised to follow-up with vascular surgery as scheduled in September. Usual and customary return precautions given prior to discharge. Medical Records Medical records reviewed: Yes I reviewed the patient's medical records. Imaging Data Radiologic Study: Radiologist's impression: XR CHEST 2V PA LATERAL CLINICAL HISTORY: dizziness, r/o acute disease. TECHNIQUE: 2D digital imaging was performed. COMPARISON: CR,XR XR CHEST 2V PA LATERAL from 07/26/2020 FINDINGS: Cardiomegaly again noted. No pulmonary edema. The previously described right pleural effusion is significantly decreased in size although there appears to be a very small amount of remaining right pleural fluid and mild increased markings in the lung base. This is also exaggerated by what appears to be probably an element of ipsilateral overlying gynecomastia Opposite-left lung is clear. IMPRESSION: Improved right lung base as described above CT BRAIN NECK CTA CLINICAL HISTORY: dizziness, r/o acute cva. TECHNIQUE: Imaging Protocol: Axial CT angiography was performed with multi- slice acquisition and multi-planar and/or 3D reconstructions. CONTRAST MATERIAL: Intravenous: Omnipaque 350 Contrast volume:85 mL COMPARISON: CT CT CHEST PE CTA from 07/23/[address] HEAD WO from 07/26/2020 Carotid ultrasound study performed 07/28/2020 was reviewed. That study revealed occlusion of the left internal carotid artery at its origin and a moderate stenosis in the proximal right internal carotid artery. FINDINGS: CTA Neck W: Right pleural effusion is noted Aortic arch anatomy: The aortic arch anatomy is conventional. Anterior circulation: There is no significant stenosis at the origin of the common carotid arteries. The left common carotid artery exhibits both calcified and noncalcified plaque on its medial wall. Some plaque is noted the carotid bifurcation. The left internal carotid artery is occluded 1 cm distal to its origin. The right common carotid artery is patent. Both calcified and noncalcified plaque is seen in the carotid bifurcation. There is approximately 40 percent stenosis in the proximal right internal carotid artery. Above this level this vessel is tortuous but otherwise patent in the upper right neck. Also demonstrated be patent in the skull base-carotid canal. Posterior circulation: Both vertebral arteries originate in conventional fashion off the subclavian arteries. There is no evidence of significant stenosis in the subclavian arteries proximal to the vertebral artery takeoff points. It is difficult to accurately visualize the origins of the vertebral arteries off of the subclavian arteries to determine if there is stenosis at these levels. In the foramen transverse area and both vertebral arteries ascend with normal and equal luminal diameters. At the skull base there is mural calcification in the left vertebral artery mild stenosis at this level. However, both vertebral arteries do contribute to the formation of the basilar artery. CTA Brain W: Anterior circulation: There is differential flow density within the intracavernous internal carotid arteries due to the proximal occlusion of the left internal carotid artery. There is, however, of flow demonstrated within the supraclinoid aspects of both internal carotid arteries which are patent and nonaneurysmal. Both middle cerebral arteries are demonstrated to be patent and without aneurysms. Both A1 segments are patent. there appears to be a single common trunk anterior cerebral artery which bifurcates few cm thereafter. There is no aneurysm at the level of the anterior communicating artery Posterior circulation: Basilar artery ascends with normal luminal diameter after being formed by both vertebral arteries. It exhibits mild dolichoectasia but no intraluminal thrombus nor dissection. Superiorly it gives off patent bilateral superior cerebellar arteries and above this level terminates as patent bilateral posterior cerebral arteries. There is no evidence of aneurysm of the tip of the basilar artery. No obvious posterior communicating arteries on either side of the [id number]. CT BRAIN: There is bifrontal atrophy again noted. Mild periventricular white matter hypodensity. There are no ring enhancing lesions in the brain and no abnormal meningeal enhancement, focal nor diffuse. No evidence of acute intracranial hemorrhage. IMPRESSION: 1. 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 This is consistent with findings on recent ultrasound exam. There is re-establishment of flow within the left internal carotid artery at the skull base carotid canal. 2. There is approximately 40 percent stenosis at the origin of the right internal carotid artery. 3. There is calcification in the left vertebral artery at the skull base with mild stenosis at this level. Both vertebral arteries contribute to the formation of the basilar artery at the skull base. No ring enhancing lesions in the brain. No abnormal meningeal enhancement. Lab Data Lab results reviewed: Yes I reviewed the patient's lab results. Labs: Laboratory Tests Range/Units 08/19/20 08/19/20 08/19/20 10:00 10:00 10:00 WBC (4.4-10.8) 10^3/uL 6.50 RBC (4.36-5.78) 10^6/uL 4.03 L Hgb (13.5-17.5) g/dL 12.2 L Hct (40.0-50.0) % 38.7 L MCV (80-95) fL 96.0 H MCH (27.0-33.0) pg 30.3 MCHC (32.0-36.0) % 31.5 L RDW (11.8-14.1) % 14.5 H Plt Count (130-400) 10^3/uL 250 MPV (8.0-11.0) fL 9.3 Immature Gran % 0.3 Neutrophils % 66.9 Lymphocytes % 20.2 Monocytes % 10.6 Eosinophils % 1.5 Basophils % 0.5 Nucleated RBC % % 0 Absolute Neutrophils (1.2-6.7) 10^3/uL 4.35 Absolute Lymphocytes (1.2-3.4) 10^3/uL 1.31 Absolute Monocytes (0.1-0.8) 10^3/uL 0.69 Absolute Eosinophils (0.0-0.7) 10^3/uL 0.10 Absolute Basophils (0.0-0.2) 10^3/uL 0.03 Sodium (136-145) mmol/L 142 Potassium (3.5-5.1) mmol/L 4.0 Chloride (98-107) mmol/L 106 Carbon Dioxide (21.0-32.0) mmol/L 27.2 Anion Gap (3-11) mmol/L 8.8 BUN (7-18) mg/dL 42 H Creatinine (0.70-1.30) mg/dL 1.3 Estimated GFR/1.73 m2 (mL/min/1.73m2) 53.25 Glucose (74-106) mg/dL 115 H Calcium (8.5-10.1) mg/dL 8.9 Magnesium (1.8-2.4) mg/dL 2.1 Total Bilirubin (0.2-1.0) mg/dL 0.7 AST (15-37) U/L 151 H ALT (16-63) U/L 139 H Alkaline Phosphatase (46-116) U/L 387 H Troponin I (<0.06) ng/mL < 0.05 NT-Pro-B Natriuret Pep (<300) pg/mL 63226 H Total Protein (6.4-8.2) g/dL 7.2 Albumin (3.4-5.0) g/dL 3.4 Urine Color (Yellow) Urine Clarity (Clear) Urine pH (5-8) Ur Specific [place] (1.005-1.025) Urine Protein (Negative) mg/dL Urine Ketones (Negative) mg/dL Urine Blood (Negative) Urine Nitrite (Negative) Urine Bilirubin (Negative) Urine Urobilinogen (Up TO 0.2) EU/dL Ur Leukocyte Esterase (Negative) Urine RBC (0-2) HPF Urine WBC (0-5) HPF Ur Epithelial Cells (Negative) HPF Urine Crystals (Negative) HPF Urine Bacteria (Negative) HPF Urine Casts (Negative) LPF Urine Mucus (Negative) Ur Culture Indicated? Urine Glucose (Negative) mg/dL Range/Units 08/19/20 08/19/20 11:00 12:58 WBC (4.4-10.8) 10^3/uL RBC (4.36-5.78) 10^6/uL Hgb (13.5-17.5) g/dL Hct (40.0-50.0) % MCV (80-95) fL MCH (27.0-33.0) pg MCHC (32.0-36.0) % RDW (11.8-14.1) % Plt Count (130-400) 10^3/uL MPV (8.0-11.0) fL Immature Gran % Neutrophils % Lymphocytes % Monocytes % Eosinophils % Basophils % Nucleated RBC % % Absolute Neutrophils (1.2-6.7) 10^3/uL Absolute Lymphocytes (1.2-3.4) 10^3/uL Absolute Monocytes (0.1-0.8) 10^3/uL Absolute Eosinophils (0.0-0.7) 10^3/uL Absolute Basophils (0.0-0.2) 10^3/uL Sodium (136-145) mmol/L Potassium (3.5-5.1) mmol/L Chloride (98-107) mmol/L Carbon Dioxide (21.0-32.0) mmol/L Anion Gap (3-11) mmol/L BUN (7-18) mg/dL Creatinine (0.70-1.30) mg/dL Estimated GFR/1.73 m2 (mL/min/1.73m2) Glucose (74-106) mg/dL Calcium (8.5-10.1) mg/dL Magnesium (1.8-2.4) mg/dL Total Bilirubin (0.2-1.0) mg/dL AST (15-37) U/L ALT (16-63) U/L Alkaline Phosphatase (46-116) U/L Troponin I (<0.06) ng/mL < 0.05 NT-Pro-B Natriuret Pep (<300) pg/mL Total Protein (6.4-8.2) g/dL Albumin (3.4-5.0) g/dL Urine Color (Yellow) Yellow Urine Clarity (Clear) Clear Urine pH (5-8) 5.5 Ur Specific [place] (1.005-1.025) 1.020 Urine Protein (Negative) mg/dL 100 H Urine Ketones (Negative) mg/dL Negative Urine Blood (Negative) Trace-intact H Urine Nitrite (Negative) Negative Urine Bilirubin (Negative) Negative Urine Urobilinogen (Up TO 0.2) EU/dL 0.2 Ur Leukocyte Esterase (Negative) Negative Urine RBC (0-2) HPF 5-10 H Urine WBC (0-5) HPF 0-2 Ur Epithelial Cells (Negative) HPF Rare Urine Crystals (Negative) HPF Negative Urine Bacteria (Negative) HPF Rare Urine Casts (Negative) LPF Negative Urine Mucus (Negative) Trace Ur Culture Indicated? No Urine Glucose (Negative) mg/dL Negative ECG Data Interpretation: Rate of 84, A. fib, PVCs. No right bundle branch block. No STEMI. No significant change from previous. HPI General Mode of arrival: ambulatory . Date/Time Provider Initiated Documentation: 08/19/20 09:48 . Limitations to Documentation: no limitations . Information obtained by: patient . HPI Narrative: Patient is a 79-year-old male with a history of CHF, CAD, see Kd, DNR/DNI presents for dizziness and shortness of breath since last night. Patient states he has had similar dizziness and shortness of breath for several years for which he has had multiple recent ED visits including a recent hospitalization for which he was discharged earlier this month. He was seen at that time for dizziness, shortness of breath and dysarthria which was determined by neurology not to be due to a neurological source but rather poor dentition and hearing loss and was recommended to continue aspirin and atorvastatin. Patient states he has had his usual similar dizziness and shortness of breath last night. Patient drove himself to the ED. Denies any fever, chest pain, cough, vomiting, diarrhea. He states he has been eating and drinking normally. Related Data Home Medications Medication Instructions Recorded Confirmed nitroglycerin 0.4 mg SUBLINGUAL PRN PRN 12/31/12 07/26/20 acetaminophen [Tylenol Arthritis 1,300 mg PO Q6H PRN PRN #0 01/03/13 07/26/20 Pain] aspirin [Aspir-81] 81 mg PO DAILY 10/28/15 07/26/20 allopurinol 100 mg PO DAILY #0 tab 04/16/20 07/26/20 metoprolol succinate 100 mg PO DAILY #0 tab 04/16/20 07/26/20 pantoprazole 40 mg PO DAILY@0730 #30 tab 04/16/20 07/26/20 atorvastatin 80 mg PO DAILY 05/05/20 07/26/20 metolazone See Rx Instructions .ROUTE .COMPLEX 05/05/20 07/26/20 potassium chloride 20 meq PO DAILY 05/05/20 05/05/20 furosemide 40 mg PO BID@0830,1600 #60 tab 05/08/20 07/26/20 Previous Rx's Medication Instructions Recorded acetaminophen [Tylenol Arthritis 1,300 mg PO Q6H PRN PRN #0 01/03/13 Pain] allopurinol 100 mg PO DAILY #0 tab 04/16/20 metoprolol succinate 100 mg PO DAILY #0 tab 02/18/21 pantoprazole 40 mg PO DAILY@0730 #30 tab 04/16/20 furosemide 40 mg PO BID@0830,1600 #60 tab 05/08/20 Allergies Allergy/AdvReac Type Severity Reaction Status Date / Time amlodipine AdvReac Intermediate Swelling/Ed Unverified 07/26/20 13:50 lottie enalapril maleate AdvReac Intermediate cough Unverified 07/26/20 13:50 [From Vasotec] enalaprilat dihydrate AdvReac Intermediate cough Unverified 07/26/20 13:50 [From Vasotec] General Stated Complaint: Dizzy/Sync RUPESH: 2 Review of Systems All systems reviewed & are unremarkable except as noted in HPI and below Constitutional Constitutional: Reports as per HPI, Denies chills and Denies fever(s) Eyes Eyes: Denies blurry vision ENT Ears, Nose, Mouth, and Throat: Reports dizziness, Denies sore throat and Denies throat swelling Cardiovascular Cardiovascular: Denies chest pain and Reports dyspnea Respiratory Respiratory: Denies cough and Reports dyspnea Gastrointestinal Gastrointestinal: Denies abdominal pain, Denies diarrhea and Denies vomiting Genitourinary Genitourinary: Denies hematuria and Denies dysuria Musculoskeletal Musculoskeletal: Denies back pain and Denies numbness Integumentary/Breasts Skin/Breast: Denies lesions and Denies rash Neurologic Neurologic: Reports dizziness, Denies localized weakness and Denies numbness Allergic/Immunologic Allergic/Immunologic: Denies throat swelling [facility] Medical History Bladder neck contracture CAD (coronary artery disease) CHF (congestive heart failure) EF 50% by echo in 03/19 Chronic kidney disease DNI (do not intubate) DNR (do not resuscitate) Hypercholesterolemia Hypertension Ischemic cardiomyopathy Palliative care patient POLST (Physician Orders for Life-Sustaining Treatment) Prostate cancer Surgical History History of heart artery stent S/P prostatectomy Status post THR (total hip replacement) Family History Son No problems noted. Social History Smoking/Tobacco Use Status: Former Tobacco Use Smoking risk assessment performed?: Yes Alcohol Intake: current Alcohol type: other Drug use: Never Substance use type: does not use Caregiver/Support person: Yes Communication Needs: Hard of Hearing and Corrective Lenses Education Level: high school Do you need help understanding health information?: Always Current gender identity: male How often do you talk on the phone with friends or family?: three or more times per week How often do you get together with friends or relatives?: three or more times per week Panel score (0-1 are the most socially isolated patients): 1 What type of physical activity do you participate in: walking Duration: 15-30 minutes/day Special deanna needs: No Seatbelt use: always Do you feel safe at home: Yes Do you feel safe in your relationship?: Yes Additional Social history: Son Berto is his main person who helps care for him. He is a , but was posted in [place] during the [employer] era. He has insurance with both medicare and [facility]. Exam Const General: cooperative and healthy appearing Orientation: alert and awake HENHI Head: normal to inspection Ears: hearing grossly normal bilaterally, external ears normal and TM's normal bilaterally General nose exam: external nose normal Face and sinus: normal facial exam Mouth: mucous membranes dry Teeth and gingiva: dentition normal Eyes General: appearance normal, both eyes and all related structures Eyelids: eyelids normal Pupils: PERRL EOM: EOM intact bilaterally Neck Neck: normal visual inspection Lymphatic: no lymphadenopathy noted Chest Chest: normal inspection of the chest Resp Effort & Inspection: normal respiratory effort and able to speak in complete sentences Auscultation: clear to auscultation bilaterally Cardio Rate: regular rate Rhythm: regular rhythm GI Inspection: normal to inspection Palpation: soft, not firm, no guarding, no hepatosplenomegaly, no masses and nontender Auscultation: normal bowel sounds Skin General skin exam: no rashes or lesions noted Neuro General: patient alert, patient awake, moves all extremities, no meningeal signs and no focal motor deficits Cranial Nerves: CN's II-XI intact bilaterally Cognition: normal cognition Speech: speech normal Gait: normal gait Motor: muscle tone normal throughout and strength 5/5 throughout Sensory Exam: no sensory deficits noted Extrem General: normal to inspection, full ROM and capillary refill normal Psych Appearance: grossly normal Mental Status: mental status grossly normal Speech and Movement: speech and movement normal Affect: normal affect Thought Process: normal Course Vital Signs Vital signs: Vital Signs Temperature 97.2 F L 08/19/20 09:51 Pulse 90 08/19/20 09:51 Blood Pressure 168/115 H 08/19/20 09:51 Pulse Oximetry 96 08/19/20 09:51 Temperature 97.2 F L 08/19/20 09:51 Temperature Source Temporal Artery Scan 08/19/20 09:51 Pulse 90 08/19/20 09:51 Blood Pressure 168/115 H 08/19/20 09:51 Blood Pressure Position Supine 08/19/20 09:51 Pulse Oximetry 96 08/19/20 09:51 Oxygen Delivery Method Room Air 08/19/20 09:51 Oxygen Flow Rate 0 08/19/20 09:51 Pain Level 0 08/19/20 09:51
--- NOTE | 2020-08-19 10:00 | DI.RAD_ITS ---
Exam(s) XR CHEST 2V PA LATERAL EXAM: XR CHEST 2V PA LATERAL CLINICAL HISTORY: dizziness, r/o acute disease. TECHNIQUE: 2D digital imaging was performed. COMPARISON: CR,XR XR CHEST 2V PA LATERAL from 07/26/2020 FINDINGS: Cardiomegaly again noted. No pulmonary edema. The previously described right pleural effusion is significantly decreased in size although there magdalene ears to be a very small amount of remaining right pleural fluid and mild increased markings in the brandi ng base. This is also exaggerated by what appears to be probably an element of ipsilateral overlying gynecomastia Opposite-left lung is clear. IMPRESSION: Improved right lung base as described above DATA REPOSITORY: RADIATION DOSE DELIVERED:
--- NOTE | 2020-08-19 10:00 | DI.CT_ITS ---
Exam(s) CT BRAIN NECK CTA EXAM: CT BRAIN NECK CTA CLINICAL HISTORY: dizziness, r/o acute cva. TECHNIQUE: Imaging Protocol: Axial CT angiography was performed with multi-slice acquisition and mu lti-planar and/or 3D reconstructions. CONTRAST MATERIAL: Intravenous: Omnipaque 350 Contrast volume:85 mL COMPARISON: CT CT CHEST PE CTA from 07/23/[address] HEAD WO from 07/26/2020 Carotid ultrasound study performed 07/28/2020 was reviewed. That study revealed occlusion of the lef t internal carotid artery at its origin and a moderate stenosis in the proximal right internal caroti d artery. FINDINGS: CTA Neck W: Right pleural effusion is noted Aortic arch anatomy: The aortic arch anatomy is conventional. Anterior circulation: There is no significant stenosis at the origin of the common carotid arteries. The left common carotid artery exhibits both calcified and noncalcified plaque on its medial wall. S ome plaque is noted the carotid bifurcation. The left internal carotid artery is occluded 1 cm dista l to its origin. The right common carotid artery is patent. Both calcified and noncalcified plaque is seen in the car otid bifurcation. There is approximately 40 percent stenosis in the proximal right internal carotid artery. Above this level this vessel is tortuous but otherwise patent in the upper right neck. Also demonstrated be patent in the skull base-carotid canal. Posterior circulation: Both vertebral arteries originate in conventional fashion off the subclavian arteries. There is no e vidence of significant stenosis in the subclavian arteries proximal to the vertebral artery takeoff p oints. It is difficult to accurately visualize the origins of the vertebral arteries off of the subc lavian arteries to determine if there is stenosis at these levels. In the foramen transverse area an d both vertebral arteries ascend with normal and equal luminal diameters. At the skull base there is mural calcification in the left vertebral artery mild stenosis at this lev el. However, both vertebral arteries do contribute to the formation of the basilar artery. CTA Brain W: Anterior circulation: There is differential flow density within the intracavernous internal carotid arteries due to the pro ximal occlusion of the left internal carotid artery. There is, however, of flow demonstrated within the supraclinoid aspects of both internal carotid arteries which are patent and nonaneurysmal. Both middle cerebral arteries are demonstrated to be patent and without aneurysms. Both A1 segments are patent. there appears to be a single common trunk anterior cerebral artery whic h bifurcates few cm thereafter. There is no aneurysm at the level of the anterior communicating rhett ry Posterior circulation: Basilar artery ascends with normal luminal diameter after being formed by both vertebral arteries. I t exhibits mild dolichoectasia but no intraluminal thrombus nor dissection. Superiorly it gives off patent bilateral superior cerebellar arteries and above this level terminates as patent bilateral pos terior cerebral arteries. There is no evidence of aneurysm of the tip of the basilar artery. No obv ious posterior communicating arteries on either side of the [id number]. CT BRAIN: There is bifrontal atrophy again noted. Mild periventricular white matter hypodensity. There are no ring enhancing lesions in the brain and no abnormal meningeal enhancement, focal nor diffuse. No ev idence of acute intracranial hemorrhage. IMPRESSION: 1. 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 This is consistent with findings on r ecent ultrasound exam. There is re-establishment of flow within the left internal carotid artery at the skull base carotid canal. 2. There is approximately 40 percent stenosis at the origin of the right internal carotid artery. 3. There is calcification in the left vertebral artery at the skull base with mild stenosis at this level. Both vertebral arteries contribute to the formation of the basilar artery at the skull base. No ring enhancing lesions in the brain. No abnormal meningeal enhancement. Relatively symmetrical brain atrophy is noted RADIATION DOSE DELIVERED: 2,129.68mGy.cm Total DLP DATA REPOSITORY: All CT scans at this facility are submitted to the National Radiology Data Registry (NRDR) Dose Index Registry (DIR) with the [employer] (A[employer]). RADIATION OPTIMIZATION: All CT scans at this facility use at least one of these dose optimization te chniques: automated exposure control; mA and/or kV adjustment per patient size (includes targeted exa ms where dose is matched to clinical indication); or iterative reconstruction.
[2020-08-19 10:09] LABS: Abs Immature Grans 0.02 10^3/uL (0.0-0.06); Absolute Basophil Count 0.03 10^3/uL (0.0-0.2); Absolute Lymphocyte Count 1.31 10^3/uL (1.2-3.4); Absolute Monocyte Count 0.69 10^3/uL (0.1-0.8); Absolute Neutrophil Count 4.35 10^3/uL (1.2-6.7); Basophils % 0.5; Eosinophils % 1.5; HCT 38.7 % (40.0-50.0); HGB 12.2 g/dL (13.5-17.5); Immature Grans % 0.3; Lymphocytes % 20.2; MCH 30.3 pg (27.0-33.0); MCHC 31.5 % (32.0-36.0); MPV 9.3 fL (8.0-11.0); Monocytes % 10.6; Neutrophils % 66.9; Nucleated RBC 0 %; Platelet Count 250 10^3/uL (130-400); RBC 4.03 10^6/uL (4.36-5.78); RDW 14.5 % (11.8-14.1); RDW-SD 50.5 fL
[2020-08-19 10:39] LABS: ALT 139 U/L (16-63); AST 151 U/L (15-37); Albumin 3.4 g/dL (3.4-5.0); Alkaline Phosphatase 387 U/L (46-116); Anion Gap 8.8 mmol/L (3-11); BUN 42 mg/dL (7-18); Bilirubin, Total 0.7 mg/dL (0.2-1.0); CO2 27.2 mmol/L (21.0-32.0); CREATININE 1.3 mg/dL (0.70-1.30); Calcium 8.9 mg/dL (8.5-10.1); Chloride 106 mmol/L (98-107); Estimated GFR 53.25 (mL/min/1.73m2); Glucose 115 mg/dL (74-106); Magnesium 2.1 mg/dL (1.8-2.4); Sodium 142 mmol/L (136-145); Total Protein 7.2 g/dL (6.4-8.2); Troponin I < 0.05 ng/mL (<0.06)
[2020-08-19 10:40] LABS: NT-proBNP 15662 pg/mL (<300)
--- NOTE | 2020-08-19 10:45 | RT.EKG_ITS ---
APPROVED REPORT Exam: Resting ECG Reason for Exam: sob, dizziness Patient Location: E HR:80 bpm ECG Measurements Heart Rate 80 AXIS MD [id number] P [id number] QRSd 164 QRS -10 QT 442 T -21 QTc 512 Conclusion Atrial fibrillation...? atrial activity Paired ventricular premature complexes...sequence of 2 V complexes Right bundle branch block...QRSd>120, terminal axis(90,270). Afib. RBBB. Multiple PVCs. No STEMI. No significant change from previous. I have reviewed and interpreted ECG and agree with software generated interpretation.
[2020-08-19 11:09] LABS: Bilirubin Negative (Negative); Blood Trace-intact (Negative); Clarity Clear (Clear); Glucose Negative (Negative); Ketones Negative (Negative); Leukocyte Esterase Negative (Negative); Nitrite Negative (Negative); Urobilinogen 0.2 EU/dL (Up TO 0.2); pH 5.5 (5-8)
[2020-08-19 11:17] LABS: Bacteria Rare HPF (Negative); C & S Indicated? No; Casts Negative LPF (Negative); Crystals Negative HPF (Negative); Epithelial Cells Rare HPF (Negative); Mucus Trace (Negative); WBC 0-2 HPF (0-5)
[2020-08-19] MEDS: Omnipaque 350 MG/ML 100 ML BTL IJ (11:22)
[2020-08-19] MEDS: Normal Saline - Diluent 50 ML VIAL IV (11:23)
[2020-08-19] MEDS: Normal Saline Flush 10 ML SYR IVP ×2 (11:23→11:48)
[2020-08-19] MEDS: Furosemide 40 MG/4 ML VIAL IVP (11:48)
[2020-08-19 13:24] LABS: Troponin I < 0.05 ng/mL (<0.06)
--- NOTE | 2020-08-19 15:22 | NUR.NOTE ---
1520 patient ambulated unassisted. Denies dizziness or weakness. Dr. Willie gillis.
== END 2020-08-19 15:37 | disposition home or self-care (01) ==
PROVIDERS: Emergency Provider Physician Assistant; PCP Internal Medicine
DX: R42 Dizziness and giddiness (principal); R06.02 Shortness of breath; I13.0 Hypertensive heart and chronic kidney disease with heart failure and stage 1 through stage 4 chronic kidney disease, or unspecified chronic kidney disease; I50.9 Heart failure, unspecified; N18.9 Chronic kidney disease, unspecified
CPT/HCPCS: 36415; 70496; 70498; 80053; 93005; 96374; 99285; 71046; 81003; 81015; 83735; 83880; 84484; 85025; 93010; J1940; J3490

== ENCOUNTER 2020-08-22 09:32 | Emergency (ER) | payer MEDICARE, OTHER, SELFPAY ==
[2020-08-22] VITALS (7 sets, daily range): BP systolic 138–157; BP diastolic 73–86; PULSE 65–80; RESP 16–22; TEMP 36.4; O2SAT 94–97
--- NOTE | 2020-08-22 09:30 | RT.EKG_ITS ---
APPROVED REPORT Exam: Resting ECG Reason for Exam: dizziness Patient Location: E HR:75 bpm ECG Measurements Heart Rate 75 AXIS RI 218 P 61 QRSd 141 QRS -8 QT 466 T 37 QTc 511 Conclusion Sinus rhythm...normal P axis, V-rate 60- 99 Ventricular premature complex...V complex w/ short R-R interval Borderline prolonged RI interval...RI >212, V-rate 50- 90 Right bundle branch block...QRSd>120, terminal axis(90,270). RBBB. PVCs. No STEMI. Unchanged from previous. I have reviewed and interpreted ECG and agree with software generated interpretation.
--- NOTE | 2020-08-22 09:40 | ED.GENADUL_ITS ---
Discharge Plan Disposition Patient Disposition: HOME Condition: Improving Discharge Details Clinical Impression: Dizziness, Congestive heart failure Primary Care Provider: Taz Collins ED Provider: Renae Tapia Home Meds and New Rx's Prescriptions: Continued nitroglycerin 0.4 MG tablet, sublingual 0.4 mg Sublingual PRN PRNRF: 0 acetaminophen [Tylenol Arthritis Pain] 650 MG tablet extended release 1,300 mg PO Q6H PRN PRNQty: 0 RF: 0 aspirin [Aspir-81] 81 MG tablet,delayed release (DR/EC) 81 mg PO DAILY RF: 0 pantoprazole 40 mg Tablet,Delayed Release (Dr/Ec) 40 mg PO DAILY@0730 Qty: 30 RF: 0 allopurinol 100 MG tablet 100 mg PO DAILY Qty: 0 RF: 0 metoprolol succinate 25 MG tablet extended release 24 hr 100 mg PO DAILY Qty: 0 RF: 0 potassium chloride 20 mEq tablet extended release 20 meq PO DAILY RF: 0 atorvastatin 40 mg tablet 80 mg PO DAILY RF: 0 furosemide 40 mg Tablet 40 mg PO BID@0830,1600 Qty: 60 RF: 0 Discharge Instructions Instructions: Heart Failure (ED), Dizziness (ED) Additional Instructions: Take an extra half dose of Lasix (20mg) in the morning along with your 40mg morning dose of Lasix for the next 3 days and continue your regular afternoon dose of 40mg lasix as directed. You can resume your regular lasix dosing of 40mg twice daily after 3 days. Return the teletypesetter monitor to the hospital as directed by respiratory therapy. You will be contacted soon by palliative care regarding an evaluation. They can determine whether you need home health for any concerns. You have been placed on care management list to help arrange for a follow-up appointment with your primary care doctor for reevaluation of your chronic dizziness and for consideration for a longer teletypesetter monitor if indicated. Return immediately to the emergency department if you develop any worsening or new concerning symptoms. Follow-up with your scheduled appointment with [facility] vascular surgery in September. Discharge Data Discharge Date/Time-TO BE ENTERED AT DEPARTURE: 08/22/20 13:13 Discharge Physician: Renae Tapia Medical Decision Making 79-year-old male with a history of coronary artery disease, CHF, CKD, ischemic cardiomyopathy presents for dizziness since last night. This is patient's fourth visit in the last month for similar complaints. He admits to chronic dizziness and shortness of breath for the past several years and states these episodes come and go. Patient was last seen here 3 days ago for the same complaint and had an unchanged CTA head and neck which notes a left ICA occlusion for which she is seeing [facility] vascular surgery in September, and improvement in his BNP and chest x-ray and was asymptomatic here and was discharged home. He presents with his ex- who is also his senior net developer architect at times and she states he called her complaining of lightheadedness when getting up last night and this morning. Patient is taking metoprolol, Lasix. He denies any acute complaints at this time. His vitals are within normal limits. An EKG notes a rate of 75, sinus, no STEMI and is unchanged from previous. He has no focal deficits on exam. Had a long conversation with patient and ex- in the room regarding patient's chronic intermittent dizziness and shortness of breath. Discussed that as he is currently asymptomatic and his respiratory rate, oxygen saturation are within normal limits, this is reassuring and his symptoms could be related to multiple factors including fluctuations in heart rate and blood pressure, dehydration, medications. Will obtain screening labs, chest x-ray. Do not see indication for repeat CT head imaging. Labs and imaging reviewed. Normal white blood cell count. Hemoglobin 11.4. Improvement in LFTs which noted to be elevated 3 days ago. Troponin negative. Improvement in BNP from 15,000 down to 11,000. Chest x-ray notes slight increase in right-sided pleural effusion compared to chest x-ray 3 days ago but similar to chest x-ray last month. Patient again remains in no acute distress, breathing normally. Will give a dose of Lasix IV and give a tray of food and reassess. Patient was able to ambulate to the bathroom without any complaint of dizziness or shortness of breath. Palliative care consult was placed for evaluation and management of his chronic conditions and complaints. Patient placed on care management list to help arrange for a follow-up appointment with his primary care doctor for reevaluation. Advised to take an extra half dose of his Lasix in the a.m. for the next 3 days. A 48-hour Holter monitor was placed for his complaint of dizziness. Advised to follow-up with the PCP if he needs a longer-term monitor. Usual and customary return precautions given prior to discharge. Medical Records Medical records reviewed: Yes I reviewed the patient's medical records. Imaging Data Radiologic Study: Radiologist's impression: XR Chest Exam date and time: 08/22/2020 10:16 AM Age: 79 years old Clinical indication: Other: Shortness of breath. R/O acute chf TECHNIQUE: Imaging protocol: XR of the chest. Views: 2 views. COMPARISON: CR XR CHEST 2V PA LATERAL 08/19/2020 10:48 AM FINDINGS: Lungs: There has been slight progression of interstitial opacities which could be due to CHF or pulmonary edema. Pleural spaces: Mild interval increase in hazy opacities in the right lower lung which might reflect small right pleural effusion with compressive atelectasis . Heart/Mediastinum: Cardiac silhouette is enlarged, unchanged. Bones/joints: Unremarkable. IMPRESSION: Interval increase in pulmonary edema and mild right pleural effusion. Lab Data Lab results reviewed: Yes I reviewed the patient's lab results. Labs: Laboratory Tests Range/Units 08/22/20 08/22/20 08/22/20 09:55 09:55 09:55 WBC (4.4-10.8) 10^3/uL 6.56 RBC (4.36-5.78) 10^6/uL 3.71 L Hgb (13.5-17.5) g/dL 11.4 L Hct (40.0-50.0) % 35.8 L MCV (80-95) fL 96.5 H MCH (27.0-33.0) pg 30.7 MCHC (32.0-36.0) % 31.8 L RDW (11.8-14.1) % 14.4 H Plt Count (130-400) 10^3/uL 260 MPV (8.0-11.0) fL 9.6 Immature Gran % 0.5 Neutrophils % 61.5 Lymphocytes % 24.1 Monocytes % 11.4 Eosinophils % 2.0 Basophils % 0.5 Nucleated RBC % % 0 Absolute Neutrophils (1.2-6.7) 10^3/uL 4.04 Absolute Lymphocytes (1.2-3.4) 10^3/uL 1.58 Absolute Monocytes (0.1-0.8) 10^3/uL 0.75 Absolute Eosinophils (0.0-0.7) 10^3/uL 0.13 Absolute Basophils (0.0-0.2) 10^3/uL 0.03 Sodium (136-145) mmol/L 140 Potassium (3.5-5.1) mmol/L 4.6 Chloride (98-107) mmol/L 104 Carbon Dioxide (21.0-32.0) mmol/L 29.6 Anion Gap (3-11) mmol/L 6.4 BUN (7-18) mg/dL 44 H Creatinine (0.70-1.30) mg/dL 1.5 H Estimated GFR/1.73 m2 (mL/min/1.73m2) 45.14 Glucose (74-106) mg/dL 103 Calcium (8.5-10.1) mg/dL 8.5 Magnesium (1.8-2.4) mg/dL 1.9 Total Bilirubin (0.2-1.0) mg/dL 0.7 AST (15-37) U/L 68 H ALT (16-63) U/L 89 H Alkaline Phosphatase (46-116) U/L 342 H Troponin I (<0.06) ng/mL < 0.05 NT-Pro-B Natriuret Pep (<300) pg/mL 12485 H Total Protein (6.4-8.2) g/dL 7.0 Albumin (3.4-5.0) g/dL 3.2 L ECG Data Attestation: I personally reviewed and interpreted this ECG (s) as follows: Interpretation: Rate of 75, sinus, right bundle branch block, PVCs. No STEMI. No change from previous. HPI General Mode of arrival: ambulatory . Date/Time Provider Initiated Documentation: 08/22/20 09:33 . Limitations to Documentation: no limitations . Information obtained by: patient . HPI Narrative: Patient is a 79-year-old male with a history of chronic dizziness shortness of breath for several years who has been seen here 3 times recently for the same complaint, most recently 3 days ago presents with dizziness since last night. Patient had a CTA head and neck which notes a chronic left ICA occlusion which was unchanged from previous and a chest x-ray which looked improved 3 days ago. Patient is scheduled to see [facility] vascular surgery at the end of September. Patient presents with his ex- and occasional senior net developer architect who states that he called her complaining of intermittent dizziness since last night. Patient states that he gets up he feels lightheaded and at times feels that he is almost going to pass out. He states he has had similar episodes for several years and has been evaluated multiple times for this, specifically 3 times in the past month, and admitted one time for similar symptoms including dysarthria which was determined likely to be due to poor dentition and hearing loss. Ex- notes that patient seemed more short of breath this morning. Patient denies shortness of breath or dizziness at present. He took his Lasix dose this morning. He denies any fever, cough or chest pain. Related Data Home Medications Medication Instructions Recorded Confirmed nitroglycerin 0.4 mg SUBLINGUAL PRN PRN 12/31/12 08/22/20 acetaminophen [Tylenol Arthritis 1,300 mg PO Q6H PRN PRN #0 01/03/13 08/22/20 Pain] aspirin [Aspir-81] 81 mg PO DAILY 10/28/15 08/22/20 allopurinol 100 mg PO DAILY #0 tab 04/16/20 08/22/20 metoprolol succinate 100 mg PO DAILY #0 tab 04/16/20 08/22/20 pantoprazole 40 mg PO DAILY@0730 #30 tab 04/16/20 08/22/20 atorvastatin 80 mg PO DAILY 05/05/20 08/22/20 potassium chloride 20 meq PO DAILY 05/05/20 05/05/20 furosemide 40 mg PO BID@0830,1600 #60 tab 05/08/20 08/22/20 Previous Rx's Medication Instructions Recorded acetaminophen [Tylenol Arthritis 1,300 mg PO Q6H PRN PRN #0 01/03/13 Pain] allopurinol 100 mg PO DAILY #0 tab 04/16/20 metoprolol succinate 100 mg PO DAILY #0 tab 04/16/20 pantoprazole 40 mg PO DAILY@0730 #30 tab 04/16/20 furosemide 40 mg PO BID@0830,1600 #60 tab 05/08/20 Allergies Allergy/AdvReac Type Severity Reaction Status Date / Time amlodipine AdvReac Intermediate Swelling/Ed Unverified 08/22/20 09:46 lottie enalapril maleate AdvReac Intermediate cough Unverified 08/22/20 09:46 [From Vasotec] enalaprilat dihydrate AdvReac Intermediate cough Unverified 08/22/20 09:46 [From Vasotec] General RUPESH: 2 Review of Systems All systems reviewed & are unremarkable except as noted in HPI and below Constitutional Constitutional: Reports as per HPI, Denies chills and Denies fever(s) Eyes Eyes: Denies blurry vision ENT Ears, Nose, Mouth, and Throat: Reports dizziness, Denies sore throat and Denies throat swelling Cardiovascular Cardiovascular: Denies chest pain and Denies dyspnea Respiratory Respiratory: Denies cough and Denies dyspnea Gastrointestinal Gastrointestinal: Denies abdominal pain, Denies diarrhea and Denies vomiting Genitourinary Genitourinary: Denies hematuria and Denies dysuria Musculoskeletal Musculoskeletal: Denies back pain and Denies numbness Integumentary/Breasts Skin/Breast: Denies lesions and Denies rash Neurologic Neurologic: Reports dizziness, Denies localized weakness and Denies numbness Allergic/Immunologic Allergic/Immunologic: Denies throat swelling PFSH Medical History Bladder neck contracture CAD (coronary artery disease) CHF (congestive heart failure) EF 50% by echo in 03/19 Chronic kidney disease DNI (do not intubate) DNR (do not resuscitate) Hypercholesterolemia Hypertension Ischemic cardiomyopathy Palliative care patient POLST (Physician Orders for Life-Sustaining Treatment) Prostate cancer Surgical History History of heart artery stent S/P prostatectomy Status post THR (total hip replacement) Family History Son No problems noted. Social History Smoking/Tobacco Use Status: Never Smoking risk assessment performed?: Yes Alcohol Intake: former Drug use: Never Substance use type: does not use Caregiver/Support person: Yes Communication Needs: Hard of Hearing and Corrective Lenses Education Level: high school Do you need help understanding health information?: Always Current gender identity: male How often do you talk on the phone with friends or family?: three or more times per week How often do you get together with friends or relatives?: three or more times per week Panel score (0-1 are the most socially isolated patients): 1 What type of physical activity do you participate in: walking Duration: 15-30 minutes/day Special deanna needs: No Seatbelt use: always Do you feel safe at home: Yes Do you feel safe in your relationship?: Yes Additional Social history: Son Berto is his main person who helps care for him. He is a , but was posted in [place] during the [employer] era. He has insurance with both medicare and [employer].
[2020-08-22 10:06] LABS: Abs Immature Grans 0.03 10^3/uL (0.0-0.06); Absolute Basophil Count 0.03 10^3/uL (0.0-0.2); Absolute Eosinophil Count 0.13 10^3/uL (0.0-0.7); Absolute Lymphocyte Count 1.58 10^3/uL (1.2-3.4); Absolute Monocyte Count 0.75 10^3/uL (0.1-0.8); Absolute Neutrophil Count 4.04 10^3/uL (1.2-6.7); Basophils % 0.5; HCT 35.8 % (40.0-50.0); HGB 11.4 g/dL (13.5-17.5); Immature Grans % 0.5; Lymphocytes % 24.1; MCH 30.7 pg (27.0-33.0); MCHC 31.8 % (32.0-36.0); MCV 96.5 fL (80-95); MPV 9.6 fL (8.0-11.0); Monocytes % 11.4; Neutrophils % 61.5; Nucleated RBC 0 %; Platelet Count 260 10^3/uL (130-400); RBC 3.71 10^6/uL (4.36-5.78); RDW 14.4 % (11.8-14.1); RDW-SD 50.6 fL; WBC 6.56 10^3/uL (4.4-10.8)
--- NOTE | 2020-08-22 10:15 | DI.RAD_ITS ---
Exam(s) XR CHEST 2V PA LATERAL EXAM: XR CHEST 2V PA LATERAL CLINICAL HISTORY: shortness of breath, r/o acute chf. TECHNIQUE: 2D digital imaging was performed. COMPARISON: Prior chest x-ray 08/19/2020 FINDINGS: Again noted is cardiomegaly. Tortuous descending thoracic aorta is again noted. Amount of interstitial markings is similar to the previous study although there is now a small right pleural effusion which was not previously evident. No obvious left pleural effusion. No pneumothora x. IMPRESSION: Small right pleural effusion now evident. DATA REPOSITORY: RADIATION DOSE DELIVERED:
[2020-08-22 10:25] LABS: ALT 89 U/L (16-63); AST 68 U/L (15-37); Albumin 3.2 g/dL (3.4-5.0); Alkaline Phosphatase 342 U/L (46-116); Anion Gap 6.4 mmol/L (3-11); BUN 44 mg/dL (7-18); Bilirubin, Total 0.7 mg/dL (0.2-1.0); CO2 29.6 mmol/L (21.0-32.0); CREATININE 1.5 mg/dL (0.70-1.30); Calcium 8.5 mg/dL (8.5-10.1); Chloride 104 mmol/L (98-107); Estimated GFR 45.14 (mL/min/1.73m2); Glucose 103 mg/dL (74-106); Magnesium 1.9 mg/dL (1.8-2.4); Potassium 4.6 mmol/L (3.5-5.1); Sodium 140 mmol/L (136-145); Troponin I < 0.05 ng/mL (<0.06)
[2020-08-22 10:43] LABS: NT-proBNP 11584 pg/mL (<300)
--- NOTE | 2020-08-22 11:37 | DI.VRAD_ITS ---
PROCEDURE INFORMATION: Exam: XR Chest Exam date and time: 08/22/2020 10:16 AM Age: 79 years old Clinical indication: Other: Shortness of breath. R/O acute chf TECHNIQUE: Imaging protocol: XR of the chest. Views: 2 views. COMPARISON: CR XR CHEST 2V PA LATERAL 08/19/2020 10:48 AM FINDINGS: Lungs: There has been slight progression of interstitial opacities which could be due to CHF or pulmonary edema. Pleural spaces: Mild interval increase in hazy opacities in the right lower lung which might reflect small right pleural effusion with compressive atelectasis . Heart/Mediastinum: Cardiac silhouette is enlarged, unchanged. Bones/joints: Unremarkable. IMPRESSION: Interval increase in pulmonary edema and mild right pleural effusion. Dictated and Authenticated by: Deangelo Berry MD. Ordering:REJI Macdonald MD
[2020-08-22] MEDS: Furosemide 40 MG/4 ML VIAL IVP (11:54)
--- NOTE | 2020-08-22 11:55 | NUR.NOTE ---
provided with meal
--- NOTE | 2020-08-22 12:56 | NUR.NOTE ---
Nursing Note: Referral faxed to PCP for follow up in 1 week for chronic dizziness, and 4th ED visit. Mary Ferreira
== END 2020-08-22 13:13 | disposition home or self-care (01) ==
PROVIDERS: Emergency Provider Physician Assistant; PCP Internal Medicine
DX: R42 Dizziness and giddiness (principal); I13.0 Hypertensive heart and chronic kidney disease with heart failure and stage 1 through stage 4 chronic kidney disease, or unspecified chronic kidney disease; I50.9 Heart failure, unspecified; N18.9 Chronic kidney disease, unspecified
CPT/HCPCS: 36415; 80053; 93005; 96374; 99284; 71046; 83735; 83880; 84484; 85025; 93010; 93225; 99282; J1940

== ENCOUNTER 2020-08-22 12:21 | Outpatient (RCR) | payer MEDICARE, OTHER, SELFPAY ==
--- NOTE | 2020-08-22 12:15 | HOLTER_ITS ---
APPROVED REPORT Conclusion This a 48-hour monitor ordered for indication of dizziness. The patient was in normal sinus rhythm for the majority of the recording with an average heart rate o f 70 bpm. There were 3 episodes of NSVT with the longest lasting 5 beats. There were frequent singular PVCs (8 %) as well as episodes of bigeminy and trigeminy. There was one episode of supraventricular tachycardia lasting 3 beats. There were occasional (2%) PA Cs. There were no episodes of atrial fibrillation, no pauses greater than 3 seconds and no episodes of hi gh degree heart block. There was 1 patient diary event associated with both PVCs and PACs.
== END 2020-08-26 23:59 | disposition home or self-care (01) ==
LOC: RT 12:21
PROVIDERS: PCP Internal Medicine; Visit Provider Physician Assistant
DX: R42 Dizziness and giddiness (principal); I47.2 Ventricular tachycardia; R00.8 Other abnormalities of heart beat; I47.1 Supraventricular tachycardia; I49.1 Atrial premature depolarization; I49.3 Ventricular premature depolarization
CPT/HCPCS: 93225; 93226

== ENCOUNTER 2020-08-27 09:10 | Outpatient (CLI) | payer MEDICARE, OTHER, SELFPAY | END 2020-08-27 09:11 | LOC: CARDO 11-05 09:17 | PROVIDERS: PCP Nurse Practitioner Family; Referring Provider Physician Assistant; Visit Provider Internal Medicine Cardiovascular Disease | DX: R42 Dizziness and giddiness (principal); I47.2 Ventricular tachycardia; I49.3 Ventricular premature depolarization; I47.1 Supraventricular tachycardia; R00.8 Other abnormalities of heart beat; I49.1 Atrial premature depolarization | CPT/HCPCS: 93227; 93272 ==

== ENCOUNTER 2020-08-31 19:20 | Outpatient (REF) | payer MEDICARE, OTHER, SELFPAY | END 2020-08-31 19:21 | disposition home or self-care (01) | LOC: LBN 19:20 | PROVIDERS: PCP Internal Medicine; Visit Provider Nurse Practitioner Family | DX: R31.9 Hematuria, unspecified (principal) | CPT/HCPCS: 87086 ==

== ENCOUNTER 2020-09-14 17:37 | Emergency (ER) | payer MEDICARE, OTHER, SELFPAY ==
[2020-09-14 17:57] VITALS: BP 150/85; PULSE 76; RESP 28; TEMP 36; O2SAT 93
--- NOTE | 2020-09-14 18:00 | DI.RAD_ITS ---
Exam(s) XR HIP LT COMPLETE AP PELVIS EXAM: XR HIP LT COMPLETE AP PELVIS INDICATION: pain after fall. COMPARISON: CR XR PELVIS AP from 03/24/2020 CR XR PELVIS AP from 03/24/[address] CHEST PE ABD PELVIS W from 07/11/2020 TECHNIQUE: 2D digital imaging was performed. FINDINGS: There has been no change in the left hip prosthesis. There is no evidence of fracture. There is a s table area of bony density adjacent to the lateral aspect of the acetabulum. The SI joints and pubic symphysis are unremarkable. The right hip is unremarkable. Vascular calcifications incidentally no ana. IMPRESSION: No acute abnormality. DATA REPOSITORY: RADIATION DOSE DELIVERED:
--- NOTE | 2020-09-14 18:00 | DI.RAD_ITS ---
Exam(s) XR HAND LT COMPLETE EXAM: XR HAND LT COMPLETE CLINICAL HISTORY: Pain, swelling dorsum. TECHNIQUE: 2D digital imaging was performed. COMPARISON: none FINDINGS: BONES: There is a small bony density seen on the lateral view dorsal to the carpal row, likely old. Clinical correlation is recommended.. No bony destructive lesion is seen. JOINTS: No dislocation present. Mild intercarpal degenerative changes. Mild degenerative changes of the interphalangeal joints. SOFT TISSUE: Posterior soft tissue swelling. Vascular calcifications. IMPRESSION: Small bony density posteriorly adjacent to the proximal carpal, acute fracture fragment versus sequel a of old trauma. DATA REPOSITORY: RADIATION DOSE DELIVERED:
--- NOTE | 2020-09-14 18:12 | W.ED.GENAD ---
Discharge Plan Disposition Patient Disposition: HOME Condition: Stable Discharge Details Clinical Impression: Contusion of hand, left, Contusion of hip, left, Mild dehydration, Fracture of triquetral bone of left wrist Primary Care Provider: Taz Collins ED Provider: Edu Hutton Home Meds and New Rx's Prescriptions: Continued nitroglycerin 0.4 MG tablet, sublingual 0.4 mg Sublingual PRN PRNRF: 0 acetaminophen [Tylenol Arthritis Pain] 650 MG tablet extended release 1,300 mg PO Q6H PRN PRNQty: 0 RF: 0 aspirin [Aspir-81] 81 MG tablet,delayed release (DR/EC) 81 mg PO DAILY RF: 0 pantoprazole 40 mg Tablet,Delayed Release (Dr/Ec) 40 mg PO DAILY@0730 Qty: 30 RF: 0 allopurinol 100 MG tablet 100 mg PO DAILY Qty: 0 RF: 0 metoprolol succinate 25 MG tablet extended release 24 hr 100 mg PO DAILY Qty: 0 RF: 0 atorvastatin 40 mg tablet 80 mg PO DAILY RF: 0 furosemide 40 mg Tablet 40 mg PO BID@0830,1600 Qty: 60 RF: 0 Discharge Instructions Instructions: Dehydration (ED), Contusion in Adults (ED) Additional Instructions: Your laboratories revealed mild dehydration. Small, frequent sips of fluids with you maintain good hydration. You may develop further bruising and have increased muscular soreness tomorrow. May use Tylenol as needed for pain. May apply ice to areas 20 to 30 minutes at a time to reduce pain and swelling. Your x-ray showed a very subtle fracture on the back or dorsum of your hand. We will treat this with a wrist immobilizer and have you follow-up in orthopedic clinic. Please call the clinic for an appointment time the number is [phone]. Follow-up at [facility] as you have previously planned. Return to the emergency department for any acute concerns. Medical Decision Making This is a 79-year-old male who presents with his son from home. He was standing at the same in his apartment and states to me that he felt a cramp and pain in his left leg which caused him to fall to the ground. He did not have a loss of consciousness. No chest pain or palpitations. He is not short of breath and he is not had a headache. He is not anticoagulated. He has a walker at home but was not using it this evening. Patient arrives to ER interactive and alert. Blood pressure 150/85, pulse 76. On exam he has bruising of the left hand dorsum as well as mild tenderness of the left hip. Screening CBC and electrolytes obtained, patient referred for x-ray of the left hand and pelvis with left hip. CBC and creatinine at near patient's baseline, BUN elevated and may did note some dehydration. X-rays negative for acute pathology of the pelvis or hip. There is a small bony fragment posterior to the triquetrum on the lateral view of the hand. May be subtle avulsion fracture. Will treat with immobilization in a wrist immobilizer. We will have him follow-up in orthopedics for definitive care. HPI General Mode of arrival: wheelchair. Date/Time Provider Initiated Documentation: 09/14/20 17:39. Limitations to Documentation: no limitations. Information obtained by: patient and family. History of Present Illness 79 year old M presents to the emergency department with the chief complaint of Left hip and hand pain after fall, described as mild, Quality is described as dull and constant, and is localized to the left, upper extremity and lower extremity. Patient reports no radiation. Patient started experiencing this minute(s) and it has been constant. No relieving factors improve symptom(s), No exacerbating factors reported . Patient notes denies chest pain, diaphoresis, headaches, seizure, syncope and weakness. Patient did receive the following treatments prior to arrival, none Related Data Home Medications Medication Instructions Recorded Confirmed nitroglycerin 0.4 mg SUBLINGUAL PRN PRN 12/31/12 09/14/20 acetaminophen [Tylenol Arthritis 1,300 mg PO Q6H PRN PRN #0 01/03/13 09/14/20 Pain] aspirin [Aspir-81] 81 mg PO DAILY 10/28/15 09/14/20 allopurinol 100 mg PO DAILY #0 tab 04/16/20 09/14/20 metoprolol succinate 100 mg PO DAILY #0 tab 04/16/20 09/14/20 pantoprazole 40 mg PO DAILY@0730 #30 tab 04/16/20 09/14/20 atorvastatin 80 mg PO DAILY 05/05/20 09/14/20 furosemide 40 mg PO BID@0830,1600 #60 tab 05/08/20 09/14/20 Previous Rx's Medication Instructions Recorded acetaminophen [Tylenol Arthritis 1,300 mg PO Q6H PRN PRN #0 01/03/13 Pain] allopurinol 100 mg PO DAILY #0 tab 04/16/20 metoprolol succinate 100 mg PO DAILY #0 tab 04/16/20 pantoprazole 40 mg PO DAILY@0730 #30 tab 04/16/20 furosemide 40 mg PO BID@0830,1600 #60 tab 05/08/20 Allergies Allergy/AdvReac Type Severity Reaction Status Date / Time amlodipine AdvReac Intermediate Swelling/Ed Unverified 09/14/20 18:01 lottie enalapril maleate AdvReac Intermediate cough Unverified 09/14/20 18:01 [From Vasotec] enalaprilat dihydrate AdvReac Intermediate cough Unverified 09/14/20 18:01 [From Vasotec] General Stated Complaint: GenMedical RUPESH: 3 Review of Systems Narrative: No loss of consciousness. No change to chronic neck pain. No new weakness or difficulty with speech. No numbness. No chest pain or palpitations. Has follow-up for atherosclerotic vascular disease at [facility] pending. 8 systems reviewed and otherwise negative. [facility] Medical History Bladder neck contracture CAD (coronary artery disease) CHF (congestive heart failure) EF 50% by echo in 03/19 Chronic kidney disease DNI (do not intubate) DNR (do not resuscitate) Hypercholesterolemia Hypertension Ischemic cardiomyopathy Palliative care patient POLST (Physician Orders for Life-Sustaining Treatment) Prostate cancer Surgical History History of heart artery stent S/P prostatectomy Status post THR (total hip replacement) Family History Son No problems noted. Social History Smoking/Tobacco Use Status: Never Smoking risk assessment performed?: Yes Alcohol Intake: former Drug use: Never Substance use type: does not use Caregiver/Support person: Yes Communication Needs: Hard of Hearing and Corrective Lenses Education Level: high school Do you need help understanding health information?: Always Current gender identity: male How often do you talk on the phone with friends or family?: three or more times per week How often do you get together with friends or relatives?: three or more times per week Panel score (0-1 are the most socially isolated patients): 1 What type of physical activity do you participate in: walking Duration: 15-30 minutes/day Special deanna needs: No Seatbelt use: always Do you feel safe at home: Yes Do you feel safe in your relationship?: Yes Additional Social history: Son Berto is his main person who helps care for him. He is a , but was posted in [place] during the [employer] era. He has insurance with both medicare and [employer]. Exam Narrative Exam Narrative: GEN: awake, alert, oriented 3. Pleasant, well groomed, interactive. HEAD: Normocephalic, atraumatic ENT: Mucous membranes moist, oropharynx unremarkable, External ear exam unremarkable EYES: PERRL, EOMI NECK: Full ROM, no GREG, no menigismus Back: Nontender, no step-off or deformity. CHEST/RESP: Nontender, clear to auscultation bilateral, no wheeze/rhonchi/rales CARDIOVASCULAR: Distant, regular 2+ Rad pulse bilateral ABDOMEN: Soft, nontender, no mass. +Bowel sounds EXT: Full ROM, edema and ecchymosis to the dorsum of the left hand which is slightly tender. Slightly tender left hip. No pain with internal or external rotation of the lower extremity. Neuro: Grossly normal neurologic exam, conversant, interactive. Motor 5 out of 5 throughout. Psych: Speech fluent, thoughts congruent, affect normal Course Vital Signs Vital signs: Vital Signs Temperature 36 C L 09/14/20 17:57 Pulse 76 09/14/20 17:57 Respiratory Rate 28 H 09/14/20 17:57 Blood Pressure 150/85 H 09/14/20 17:57 Pulse Oximetry 93 09/14/20 17:57 Temperature 36 C L 09/14/20 17:57 Temperature Source Skin 09/14/20 17:57 Pulse 76 09/14/20 17:57 Respiratory Rate 28 H 09/14/20 17:57 Respiratory Effort Non-Labored 09/14/20 17:57 Blood Pressure 150/85 H 09/14/20 17:57 Blood Pressure Position Supine 09/14/20 17:57 Pulse Oximetry 93 09/14/20 17:57 Oxygen Delivery Method Room Air 09/14/20 17:57 Oxygen Flow Rate 0 09/14/20 17:57 Pain Level 7 09/14/20 17:57
[2020-09-14 18:33] VITALS: RESP 28
[2020-09-14 18:39] LABS: HCT 35.1 % (40.0-50.0); MCH 30.2 pg (27.0-33.0); MCHC 31.3 % (32.0-36.0); MCV 96.4 fL (80-95); MPV 9.3 fL (8.0-11.0); Platelet Count 237 10^3/uL (130-400); RBC 3.64 10^6/uL (4.36-5.78); RDW-SD 52.6 fL; WBC 7.81 10^3/uL (4.4-10.8)
[2020-09-14 18:52] LABS: ALT 34 U/L (16-63); AST 27 U/L (15-37); Albumin 3.6 g/dL (3.4-5.0); Alkaline Phosphatase 240 U/L (46-116); Anion Gap 9.3 mmol/L (3-11); BUN 58 mg/dL (7-18); Bilirubin, Total 0.7 mg/dL (0.2-1.0); CO2 28.7 mmol/L (21.0-32.0); CREATININE 1.6 mg/dL (0.70-1.30); Calcium 8.8 mg/dL (8.5-10.1); Chloride 103 mmol/L (98-107); Glucose 119 mg/dL (74-106); Sodium 141 mmol/L (136-145); Total Protein 7.3 g/dL (6.4-8.2)
[2020-09-14 19:21] VITALS: BP 154/69; PULSE 61; RESP 17; TEMP 36.2; O2SAT 93
--- NOTE | 2020-09-14 19:22 | NUR.NOTE ---
pt awake and alert. son at bedside. no signs or symptom of distress noted. :
--- NOTE | 2020-09-14 19:26 | DI.VRAD_ITS ---
PROCEDURE INFORMATION: Exam: XR Left Hand Exam date and time: 09/14/2020 6:12 PM Age: 79 years old Clinical indication: Injury or trauma; Fall; Swelling (edema); Hand; Left; Injury date: 09/14/20; Injury details: Pain, swelling dorsum TECHNIQUE: Imaging protocol: XR Left hand. Views: 3 or more views. COMPARISON: No relevant prior studies available. FINDINGS: Bones/joints: A small bony fragment projects posterior to the triquetrum on the lateral view. Distal radioulnar joint is narrowed with osteophyte formation. Other joint spaces are comparatively normal. No evidence of bony erosion or destructive change. Soft tissues: Normal. Vasculature: Moderate vascular calcifications noted. IMPRESSION: Suspect fracture of the triquetrum. Dictated and Authenticated by: Jose Miguel Marshall MD. Ordering:RACHNA Sorensen MD
--- NOTE | 2020-09-14 19:28 | DI.VRAD_ITS ---
PROCEDURE INFORMATION: Exam: XR Left Hip Exam date and time: 09/14/2020 6:12 PM Age: 79 years old Clinical indication: Injury or trauma; Blunt trauma (contusions or hematomas); Left; Hip; Injury date: 09/14/20; Injury details: Pain after fall; Prior surgery; Surgery date: 6+ months TECHNIQUE: Imaging protocol: XR Left hip. Views: 2 or 3 views hip with pelvis when performed. COMPARISON: SR XR PELVIS AP 03/24/2020 3:35 PM FINDINGS: Left total hip arthroplasty noted. Components are well seated. Prosthetic femoral head is centered in the acetabular cup. Irregular well-corticated osseous structure is noted adjacent to the acetabular component, unchanged. There is no significant subsidence compared to the previous exam. Moderate-severe vascular calcifications noted. Left total hip arthroplasty appears well-aligned. IMPRESSION: No acute osseous abnormality. Dictated and Authenticated by: Jose Miguel Marshall MD. Ordering:RACHNA Sorensen MD
== END 2020-09-14 19:45 | disposition home or self-care (01) ==
PROVIDERS: Emergency Provider Emergency Medicine; PCP Internal Medicine
DX: S70.02XA Contusion of left hip, initial encounter (principal); S60.222A Contusion of left hand, initial encounter; S62.112A Displaced fracture of triquetrum [cuneiform] bone, left wrist, initial encounter for closed fracture; W18.39XA Other fall on same level, initial encounter; E86.0 Dehydration
CPT/HCPCS: 29125; 36410; 80053; 85027; 99284; 73130; 73502; 99283

== ENCOUNTER → 2020-09-29 08:24 | Outpatient (BNVA) | payer MEDICARE, OTHER, SELFPAY | PROVIDERS: PCP Internal Medicine; Referring Provider Internal Medicine | DX: S60.222A Contusion of left hand, initial encounter (principal); S62.112A Displaced fracture of triquetrum [cuneiform] bone, left wrist, initial encounter for closed fracture; W19.XXXA Unspecified fall, initial encounter; M25.561 Pain in right knee; M25.562 Pain in left knee | CPT/HCPCS: 99213 ==

== ENCOUNTER 2020-10-10 06:27 | Inpatient (IN) | payer MEDICARE, OTHER, SELFPAY ==
[2020-10-10] VITALS (39 sets, daily range): BP systolic 104–164; BP diastolic 70–93; PULSE 58–122; RESP 17–34; TEMP 36.2–37.2; O2SAT 82–99
--- NOTE | 2020-10-10 06:29 | ED.GENADUL_ITS ---
Discharge Plan Disposition Patient Disposition: [facility] INPATIENT Condition: Poor Discharge Details Clinical Impression: Heart failure, chronic, with acute decompensation Primary Care Provider: Haily Alvarez ED Provider: Diego Sherman [place] Meds and New Rx's Prescriptions: No Action nitroglycerin 0.4 MG tablet, sublingual 0.4 mg Sublingual PRN PRNRF: 0 acetaminophen [Tylenol Arthritis Pain] 650 MG tablet extended release 1,300 mg PO Q6H PRN PRNQty: 0 RF: 0 aspirin [Aspir-81] 81 MG tablet,delayed release (DR/EC) 81 mg PO DAILY RF: 0 pantoprazole 40 mg Tablet,Delayed Release (Dr/Ec) 40 mg PO DAILY@0730 Qty: 30 RF: 0 allopurinol 100 MG tablet 100 mg PO DAILY Qty: 0 RF: 0 metoprolol succinate 25 MG tablet extended release 24 hr 100 mg PO DAILY Qty: 0 RF: 0 atorvastatin 40 mg tablet 80 mg PO DAILY RF: 0 furosemide 40 mg Tablet 40 mg PO BID@0830,1600 Qty: 60 RF: 0 Medical Decision Making Patient here with acute worsening of shortness of breath with weight gain likely exacerbation of CHF spite twice a day dosing of Lasix. EKG is sinus rhythm with prolonged [place] and right bundle branch block. PVCs noted. IV established and laboratory studies ordered. Portable chest x-ray to be done. Will place Garcia to monitor urine output and give 80 of IV Lasix now. Patient is maintaining saturations greater than 90% on nasal cannula oxygen at rest on the stretcher. Nursing unable to pass a Garcia. Patient is able to urinate on his own so for now we will forego catheter placement. Laboratory studies significant for baseline kidney function. BNP continues to be markedly elevated. Troponin negative. Chest x-ray with chronic right pleural effusion. Will discuss case with hospitalist for admission for diuresis. Medical Records Medical records reviewed: Yes I reviewed the patient's medical records. Lab Data Lab results reviewed: Yes I reviewed the patient's lab results. ECG Data Attestation: I personally reviewed and interpreted this ECG (s) as follows: Prior ECG tracings: available for review Interpretation: see EKG HPI General Mode of arrival: wheelchair . Date/Time Provider Initiated Documentation: 10/10/20 06:29 . Limitations to Documentation: no limitations . Information obtained by: patient, RN notes reviewed and old records reviewed . HPI Narrative: Patient presents to ED with complaint of shortness of breath. Patient reports gaining 5 pounds over the last week. He has slowly had increasing shortness of breath. He continues on furosemide 40 mg twice a day. He does have urine output but does not feel that it is as much as it has been in the past. His stomach and his legs both feel swollen to him. He denies fever or cough. He denies any episodes of chest pain or pressure. He has prior history of exacerbations of CHF. Exertion at this point makes him acutely dyspneic. Presents at triage with sats in the 80s. Related Data Home Medications Medication Instructions Recorded Confirmed nitroglycerin 0.4 mg SUBLINGUAL PRN PRN 12/31/12 10/10/20 acetaminophen [Tylenol Arthritis 1,300 mg PO Q6H PRN PRN #0 01/03/13 10/10/20 Pain] aspirin [Aspir-81] 81 mg PO DAILY 10/28/15 10/10/20 allopurinol 100 mg PO DAILY #0 tab 04/16/20 10/10/20 metoprolol succinate 100 mg PO DAILY #0 tab 04/16/20 10/10/20 pantoprazole 40 mg PO DAILY@0730 #30 tab 04/16/20 10/10/20 atorvastatin 80 mg PO DAILY 05/05/20 10/10/20 furosemide 40 mg PO BID@0830,1600 #60 tab 05/08/20 10/10/20 Previous Rx's Medication Instructions Recorded acetaminophen [Tylenol Arthritis 1,300 mg PO Q6H PRN PRN #0 01/03/13 Pain] allopurinol 100 mg PO DAILY #0 tab 04/16/20 metoprolol succinate 100 mg PO DAILY #0 tab 04/16/20 pantoprazole 40 mg PO DAILY@0730 #30 tab 04/16/20 furosemide 40 mg PO BID@0830,1600 #60 tab 05/08/20 Allergies Allergy/AdvReac Type Severity Reaction Status Date / Time amlodipine AdvReac Intermediate Swelling/Ed Unverified 09/29/20 08:37 lottie enalapril maleate AdvReac Intermediate cough Unverified 09/29/20 08:37 [From Vasotec] enalaprilat dihydrate AdvReac Intermediate cough Unverified 09/29/20 08:37 [From Vasotec] General RUPESH: 3 Review of Systems Narrative: 12/10 Review of Systems completed and is negative except as stated above in HPI (Systems reviewed: Const, Eyes, ENT, Resp, CV, GI, , MSK, Skin, Neuro) [facility] Medical History Bladder neck contracture CAD (coronary artery disease) CHF (congestive heart failure) EF 50% by echo in 03/19 Chronic kidney disease DNI (do not intubate) DNR (do not resuscitate) Hypercholesterolemia Hypertension Ischemic cardiomyopathy Palliative care patient POLST (Physician Orders for Life-Sustaining Treatment) Prostate cancer Surgical History History of heart artery stent S/P prostatectomy Status post THR (total hip replacement) Family History Son No problems noted. Social History Smoking/Tobacco Use Status: Never Smoking risk assessment performed?: Yes Alcohol Intake: former Drug use: Never Substance use type: does not use Caregiver/Support person: Yes Communication Needs: Hard of Hearing and Corrective Lenses Education Level: high school Do you need help understanding health information?: Always Current gender identity: male How often do you talk on the phone with friends or family?: three or more times per week How often do you get together with friends or relatives?: three or more times per week Panel score (0-1 are the most socially isolated patients): 1 What type of physical activity do you participate in: walking Duration: 15-30 minutes/day Special deanna needs: No Seatbelt use: always Do you feel safe at home: Yes Do you feel safe in your relationship?: Yes Additional Social history: Son Berto is his main person who helps care for him. He is a , but was posted in [place] during the [employer] era. He has insurance with both medicare and [employer]. Exam Narrative Exam Narrative: Const: WDWN elderly male in NAD at rest. HEENT: NC/AT. Normal facial exam. Eyes: Normal conjunctiva and sclera. Neck: Supple. Trachea midline. Lungs: Normal respiratory effort but a little tachypneic. Lungs diminished at both bases left greater than right. Cor: RRR with with tactile beat and distant heart sounds. Good radial pulses. GI: Soft but distended. NT. Neuro: A+O x 3. Normal mentation. Cranial nerves II - XII grossly intact. No gross motor or sensory deficit. Ext: No C/C. Significant BLE edema Skin: Warm and dry without rash.
--- NOTE | 2020-10-10 06:30 | DI.RAD_ITS ---
Exam(s) XR PORTABLE CHEST AP EXAM: XR PORTABLE CHEST AP CLINICAL HISTORY: SOB. TECHNIQUE: 2D digital imaging was performed. COMPARISON: CR,XR XR CHEST 2V PA LATERAL from 08/22/2020 FINDINGS: Cardiomegaly again noted. Chest leads in place. Left lung is clear. The size of the right pleural effusion has increased, now moderate in size. Some infiltrate noted in the right lung base. No pneu mothorax. IMPRESSION: Further increase in size in the right pleural effusion. DATA REPOSITORY: RADIATION DOSE DELIVERED: All CT scans at this facility use at least one of these dose optimization techniques: automated exposure control; mA and/or kV adjustment per patient size (includes targeted e xams where dose is matched to clinical indication); or iterative reconstruction.
--- NOTE | 2020-10-10 06:30 | RT.EKG_ITS ---
APPROVED REPORT Exam: Resting ECG Reason for Exam: short of breath Patient Location: E HR:70 bpm ECG Measurements Heart Rate 70 AXIS [place] [id number] P [id number] QRSd 141 QRS -12 QT 426 T -12 QTc 459 Conclusion Atrial fibrillation...? atrial activity Right bundle branch block...QRSd>120, terminal axis(90,270) Inferior infarct, old...Q >35mS, II III aVF Sinus Rhythm with long NJ RBBB PVCs No STEMI
[2020-10-10 06:54] LABS: Abs Immature Grans 0.01 10^3/uL (0.0-0.06); Absolute Basophil Count 0.04 10^3/uL (0.0-0.2); Absolute Eosinophil Count 0.13 10^3/uL (0.0-0.7); Absolute Monocyte Count 0.74 10^3/uL (0.1-0.8); Absolute Neutrophil Count 4.82 10^3/uL (1.2-6.7); Basophils % 0.6; Eosinophils % 1.9; HCT 37.8 % (40.0-50.0); HGB 11.4 g/dL (13.5-17.5); Immature Grans % 0.1; Lymphocytes % 16.1; MCH 28.9 pg (27.0-33.0); MCHC 30.2 % (32.0-36.0); MCV 95.7 fL (80-95); MPV 9.9 fL (8.0-11.0); Monocytes % 10.8; Neutrophils % 70.5; Nucleated RBC 0 %; Platelet Count 237 10^3/uL (130-400); RBC 3.95 10^6/uL (4.36-5.78); RDW 14.6 % (11.8-14.1); RDW-SD 51.6 fL; WBC 6.84 10^3/uL (4.4-10.8)
[2020-10-10] MEDS: Lidocaine 2% Jelly 11 ML SYR UR (07:07)
[2020-10-10] MEDS: Furosemide 100 MG/10 ML VIAL 80 MG IVP (07:09)
[2020-10-10 07:16] LABS: ALT 40 U/L (16-63); AST 48 U/L (15-37); Albumin 3.7 g/dL (3.4-5.0); Alkaline Phosphatase 273 U/L (46-116); Anion Gap 7.2 mmol/L (3-11); BUN 55 mg/dL (7-18); Bilirubin, Total 0.6 mg/dL (0.2-1.0); CO2 30.8 mmol/L (21.0-32.0); CREATININE 1.8 mg/dL (0.70-1.30); Calcium 8.3 mg/dL (8.5-10.1); Chloride 102 mmol/L (98-107); Estimated GFR 36.58 (mL/min/1.73m2); Glucose 123 mg/dL (74-106); Magnesium 2.3 mg/dL (1.8-2.4); NT-proBNP 14372 pg/mL (<300); Potassium 4.3 mmol/L (3.5-5.1); Sodium 140 mmol/L (136-145); Total Protein 7.1 g/dL (6.4-8.2); Troponin I < 0.05 ng/mL (<0.06)
[2020-10-10 08:18] LABS: Source Nasal/Nares
--- NOTE | 2020-10-10 09:09 | DI.VRAD_ITS ---
PROCEDURE INFORMATION: Exam: XR Chest Exam date and time: 10/10/2020 6:41 AM Age: 79 years old Clinical indication: Other: SOB TECHNIQUE: Imaging protocol: XR of the chest. Views: 1 view. COMPARISON: CR XR CHEST 2V PA LATERAL 08/22/2020 10:49 AM FINDINGS: The cardiomediastinal silhouette is grossly stable accounting for differences in technique. Mild interstitial opacities and small right pleural effusion and right basilar opacity. No pneumothorax. The osseous structures are stable IMPRESSION: Mild interstitial pneumonitis versus edema Small right pleural effusion and mild right basilar opacity Dictated and Authenticated by: Carlos Vargas MD. Ordering:SHOAIB Cortez MD
[2020-10-10 09:12] LABS: COVID-19 PCR Negative (Negative)
--- NOTE | 2020-10-10 10:43 | HPE_ITS ---
Date of service: 10/10/20 Time of Service: 10:43 Assessment and Plan Assessment and plan (1) Acute exacerbation of CHF (congestive heart failure): Status: Acute Assessment and plan: No symptoms of CP and no ischemic ST-T changes on his EKG and negative troponin. His BNP is quite high but appears to be this way chronically. His last ech we have is from 03/25/2020 and was fair quality and limited study, LV size and wall thickness was normal and LVEF 50% but RWMA could not be assessed. His RV size was normal and RV systolic function could not be assessed. RVSP was 31 which does not suggest significant PHTN as cause for his right sided edema. He has trivial MR and TR. For now I will continue diuresing w/ lasix drip w/ goal to get him negative by 1 to 1.5 liters over next 24hr. If his BUN and creatinine start to climb then may need to look at VEXUS and he will need repeat echo this admission. Qualifiers: Heart failure type: combined systolic and diastolic Qualified Code(s): I50.43 - Acute on chronic combined systolic (congestive) and diastolic (congestive) heart failure (2) Ischemic cardiomyopathy: Status: Chronic Assessment and plan: no evidence for ACS. will check echo (3) Acute kidney injury superimposed on chronic kidney disease: Status: Resolved Assessment and plan: assumed to be d/t acute on chronic CHF however can not rule out obstructive uropathy d/t his urinary bladder emptying issues (note ER unable to pass burgos catheter) (4) Anasarca: Status: Acute Assessment and plan: he appears to have overall increased total body fluid retention as evidenced by leg edema, abdominal edema and ascites along w/ his CHF. continue lasix drip w/ above goals. He may benefit from spironolactone. He also ought to be on an ARB for his cardiomyopathy. History of Present Illness History of Present Illness Chief Complaint: dyspnea; 5 lb wt gain Narrative: 79 yr old male w/ PMH of CAD (prior stents), ischemic CM (LVEF 50% per echo 03/20), CKD, HLD, HTN, prostate CA (s/p prostatectomy) who presents w/ 5 lb wt gain over past week along w/ increased dyspnea, increased abdominal and bilateral leg edema and on arrival he had hypoxemia w/ SPO2 of 83%. He denies any CP. He states that he has been taking his lasix 40 mg twice a day but he has not been voiding as much and has had the edema and wt gain despite his lasix. EKG on admission demonstrated SR 70 bpm w/ 1st degree AVB AL 240 msec, and RBBB which is old. Troponin I normal at <0.05 (subsequent readings also normal at <0.05 x two more sets), BNP 14,372 (however he appears to be chronically in the 11,000 to 15,000 and has been as high as >35,000. CXR demonstrates moderate right pleural effusion and mild interstitial edema and cardiomegaly Review of Systems All systems reviewed & are unremarkable except as noted in HPI and below PFSH Medical History Bladder neck contracture CAD (coronary artery disease) CHF (congestive heart failure) EF 50% by echo in 03/19 Chronic kidney disease DNI (do not intubate) DNR (do not resuscitate) Hypercholesterolemia Hypertension Ischemic cardiomyopathy Palliative care patient POLST (Physician Orders for Life-Sustaining Treatment) Prostate cancer Surgical History History of heart artery stent S/P prostatectomy Status post THR (total hip replacement) Family History Son No problems noted. Social History Smoking/Tobacco Use Status: Never Smoking risk assessment performed?: Yes Alcohol Intake: former Drug use: Never Substance use type: does not use Caregiver/Support person: Yes Communication Needs: Hard of Hearing and Corrective Lenses Education Level: high school Do you need help understanding health information?: Always Current gender identity: male How often do you talk on the phone with friends or family?: three or more times per week How often do you get together with friends or relatives?: three or more times per week Panel score (0-1 are the most socially isolated patients): 1 What type of physical activity do you participate in: walking Duration: 15-30 minutes/day Special deanna needs: No Seatbelt use: always Do you feel safe at home: Yes Do you feel safe in your relationship?: Yes Additional Social history: Son Berto is his main person who helps care for him. He is a , but was posted in [place] during the [employer] era. He has insurance with both medicare and [employer]. Meds Allergies and Home Medications Allergies Allergy/AdvReac Type Severity Reaction Status Date / Time amlodipine AdvReac Intermediate Swelling/Ed Unverified 09/29/20 08:37 lottie enalapril maleate AdvReac Intermediate cough Unverified 09/29/20 08:37 [From Vasote] enalaprilat dihydrate AdvReac Intermediate cough Unverified 09/29/20 08:37 [From Vasote] Home Medications Medication Instructions Recorded Confirmed Type nitroglycerin 0.4 mg SUBLINGUAL PRN PRN 12/31/12 10/10/20 History acetaminophen [Tylenol Arthritis 1,300 mg PO Q6H PRN PRN #0 01/03/13 10/10/20 Rx Pain] aspirin [Aspir-81] 81 mg PO DAILY 10/28/15 10/10/20 History allopurinol 100 mg PO DAILY #0 tab 04/16/20 10/10/20 Rx metoprolol succinate 100 mg PO DAILY #0 tab 04/16/20 10/10/20 Rx pantoprazole 40 mg PO DAILY@0730 #30 tab 04/16/20 10/10/20 Rx atorvastatin 80 mg PO DAILY 05/05/20 10/10/20 History furosemide 40 mg PO BID@0830,1600 #60 tab 05/08/20 10/10/20 Rx Exam Const General: cooperative, no acute distress and well developed Nutritional Appearance: obese Orientation: alert, awake and oriented x3 [facility] Head: normal to inspection, no palpable skull fracture, normocephalic and atraumatic General nose exam: external nose normal Face and sinus: normal facial exam Mouth: oral mucosae normal Eyes General: appearance normal, both eyes and all related structures Alignment and Position: alignment normal Periorbital: periorbital findings normal Eyelids: eyelids normal Conjunctivae: conjunctivae normal Sclera: sclerae normal Cornea: corneas normal EOM: EOM intact bilaterally Neck Neck: full ROM, no lymphadenopathy and JVD Thyroid: thyroid normal Carotids: delayed carotid upstroke Chest Chest: normal inspection of the chest and normal palpation of entire chest wall Resp Effort & Inspection: able to speak in complete sentences and tachypneic Auscultation: diminished lung sounds on the right in the lower lung spencer and rales bilaterally Percussion: dullness Lower: right Cardio Jugular venous pressure: JVD elevated and to the level of the angle of the jaw Palpation: normal PMI Rate: regular rate Rhythm: regular rhythm Heart Sounds: S1 normal and S2 normal GI Inspection: edema Laterality: bilateral and obesity Palpation: soft, no hepatosplenomegaly, no guarding, nontender and ascites Percussion: normal to percussion Auscultation: normal bowel sounds Back/Spine/Pelvis Back: no CVA tenderness Cervical Spine: normal cervical lordosis Thoracic/Lumbar Spine: thoracic and lumbar spine normal to inspection Skin General skin exam: no rashes or lesions noted, elasticity normal and turgor normal Neuro General: patient alert, patient awake and patient oriented x3 Cognition: normal cognition Speech: abnormal speech slurred Motor: muscle tone normal throughout, strength 5/5 throughout and no pronator drift Extrem General: full ROM and edema Laterality: bilateral (2+ pitting bilateral lower leg edema from ankles to just below patellae) Psych Appearance: grossly normal Mental Status: mental status grossly normal Speech and Movement: slurred speech Mood: congruent mood Affect: normal affect Attitude: cooperative Thought Process: normal Thought Content: normal Insight: insight good Judgment: judgment good Results Imaging Chest x-ray: report reviewed and image reviewed EKG: image reviewed Labs Result diagrams: 10/10/20 06:48 10/10/20 06:48 Labs: Laboratory Results - last 24 hr 10/10/20 10/10/20 10/10/20 06:48 06:48 08:11 WBC 6.84 RBC 3.95 L Hgb 11.4 L Hct 37.8 L MCV 95.7 H MCH 28.9 MCHC 30.2 L RDW 14.6 H Plt Count 237 MPV 9.9 Immature Gran % 0.1 Neutrophils % 70.5 Lymphocytes % 16.1 Monocytes % 10.8 Eosinophils % 1.9 Basophils % 0.6 Nucleated RBC % 0 Absolute Neutrophils 4.82 Absolute Lymphocytes 1.10 L Absolute Monocytes 0.74 Absolute Eosinophils 0.13 Absolute Basophils 0.04 Sodium 140 Potassium 4.3 Chloride 102 Carbon Dioxide 30.8 Anion Gap 7.2 BUN 55 H Creatinine 1.8 H Estimated GFR/1.73 m2 36.58 Glucose 123 H Calcium 8.3 L Magnesium 2.3 Total Bilirubin 0.6 AST 48 H ALT 40 Alkaline Phosphatase 273 H Troponin I < 0.05 NT-Pro-B Natriuret Pep 31007 H Total Protein 7.1 Albumin 3.7 COVID-19 Source Nasal/Nares SARS-CoV-2 (PCR) Negative Last Vital Signs Temp 36.5 C 10/10/20 10:00 Pulse 66 10/10/20 10:00 Resp 22 10/10/20 10:00 BP 139/85 10/10/20 10:00 Pulse Ox 99 10/10/20 10:00
[2020-10-10 11:18] LABS: Troponin I < 0.05 ng/mL (<0.06)
[2020-10-10] MEDS: Aspirin E.C. 81 MG TABEC PO (11:54)
[2020-10-10] MEDS: Allopurinol 100 MG TAB PO (11:54)
[2020-10-10] MEDS: Pantoprazole 40 MG TABCR PO (11:54)
[2020-10-10] MEDS: Enoxaparin 40 MG/0.4 ML SYR SC (11:54)
--- NOTE | 2020-10-10 12:57 | RESPIRATORY ---
RT spoke with patient regarding question of home oxygen. Patient stated that he previously had home O2 through [employer], but found that it was bulky and took up too much space in his small apartment, so [facility]. Pt stated that if home O2 is needed upon this discharge, he is not interested in dealing with it again.
[2020-10-10 14:21] LABS: Troponin I < 0.05 ng/mL (<0.06)
[2020-10-10] MEDS: Atorvastatin 40 MG TAB 80 MG PO (20:08)
[2020-10-11 03:58] VITALS: BP 127/53; PULSE 67; RESP 22; TEMP 36.6; O2SAT 93
[2020-10-11 07:19] VITALS: PULSE 59
[2020-10-11 08:24] LABS: Anion Gap 5.8 mmol/L (3-11); BUN 48 mg/dL (7-18); CO2 33.2 mmol/L (21.0-32.0); CREATININE 1.5 mg/dL (0.70-1.30); Calcium 8.5 mg/dL (8.5-10.1); Chloride 102 mmol/L (98-107); Estimated GFR 45.14 (mL/min/1.73m2); Glucose 96 mg/dL (74-106); Magnesium 2.1 mg/dL (1.8-2.4); NT-proBNP 14310 pg/mL (<300); Potassium 4.1 mmol/L (3.5-5.1); Sodium 141 mmol/L (136-145)
[2020-10-11] MEDS: Metoprolol CR 100 MG TABCR PO (08:33)
[2020-10-11] MEDS: Allopurinol 100 MG TAB PO (08:33)
[2020-10-11] MEDS: Aspirin E.C. 81 MG TABEC PO (08:34)
[2020-10-11] MEDS: Pantoprazole 40 MG TABCR PO (08:34)
[2020-10-11] MEDS: Enoxaparin 40 MG/0.4 ML SYR SC (12:39)
[2020-10-11 14:44] VITALS: PULSE 76
--- NOTE | 2020-10-11 15:00 | RT.EKG_ITS ---
APPROVED REPORT Exam: Resting ECG Reason for Exam: prolonged ID interval; re-evaluate AV block Patient Location: I HR:66 bpm ECG Measurements Heart Rate 66 AXIS ID 291 P 121 QRSd 143 QRS 35 QT 398 T 162 QTc 411 Conclusion Sinus rhythm...normal P axis, V-rate 60- 99 Paired ventricular premature complexes...sequence of 2 V complexes Prolonged ID interval...ID >220, V-rate 50- 90 IVCD, consider RBBB...QRSd>120mS, terminal axis(90,270)
[2020-10-11 15:08] VITALS: BP 132/64; PULSE 69; RESP 18; TEMP 36.4; O2SAT 96
--- NOTE | 2020-10-11 15:35 | W.PM.PROGNOT ---
Date of Service Date of service: 10/11/20 Time of Service: 15:35 Assessment and Plan Assessment and plan (1) Acute exacerbation of CHF (congestive heart failure): Status: Acute Assessment and plan: No symptoms of ischemia event. Troponin I has been negative. EKG shows first-degree AV block and right bundle branch block unchanged other than increased SD interval. Continue furosemide drip with a goal for net negative fluid balance of 1 to 1.5 L/day. Continue to monitor daily BMP. Start on low-dose Diovan 20 mg p.o. twice daily and titrate to response. Check follow-up echocardiogram in the morning Qualifiers: Heart failure type: combined systolic and diastolic Qualified Code(s): I50.43 - Acute on chronic combined systolic (congestive) and diastolic (congestive) heart failure (2) Ischemic cardiomyopathy: Status: Chronic Assessment and plan: no evidence for ACS. will check echo in a.m. (3) Acute kidney injury superimposed on chronic kidney disease: Status: Resolved Assessment and plan: Stable and slightly improved creatinine with diuresis. (4) Anasarca: Status: Acute Assessment and plan: he appears to have overall increased total body fluid retention as evidenced by leg edema, abdominal edema and ascites along w/ his CHF. continue lasix drip w/ above goals. He may benefit from spironolactone. He also ought to be on an ARB for his cardiomyopathy. Check abdominal ultrasound in the morning to rule out other causes for ascites besides his CHF. Subjective Subjective Interval history since last seen: Patient states he is feeling better less dyspnea. However he still has significant ascites and lower extremity edema. His weight is down to 84.4 kg. This appears to be a 5.6 kg drop overnight. I am not convinced that his 90 kg weight on admission was accurate. His intake and output shows that he is -1 L from yesterday and so far today his intake and output balance is -1.3 L. proBNP remains elevated at 14,300. Troponins were negative yesterday. BUN and creatinine are stable with a slight decrease in his creatinine down to 1.5. Sodium and potassium remain normal. He remains on a furosemide drip at 5 mg/h. I will continue his current diuretic rate with a goal of taken off 1 to 1/2 L/day. For ICU nursing his telemetry showing a prolonged SD interval of 231 ms. We checked it on ECG and on twelve-lead ECG his SD intervals about 290 ms. Patient has no chest pain. Exam Narrative Exam Narrative: Elderly white male sitting up in his chair in no acute distress. Respirations nonlabored. Lungs with bilateral basilar rales no rhonchi and no wheezing Heart is regular with frequent extrasystolic beats. Abdomen is edematous with positive fluid wave. Lower extremities with 2+ pitting edema Objective Last Vital Signs Temp 36.4 C L 10/11/20 15:08 Pulse 69 10/11/20 15:08 Resp 18 10/11/20 15:08 BP 132/64 10/11/20 15:08 Pulse Ox 96 10/11/20 15:08 Laboratory Results - last 24 hr 10/11/20 07:33 Sodium 141 Potassium 4.1 Chloride 102 Carbon Dioxide 33.2 H Anion Gap 5.8 BUN 48 H Creatinine 1.5 H Estimated GFR/1.73 m2 45.14 Glucose 96 Calcium 8.5 Magnesium 2.1 NT-Pro-B Natriuret Pep 95168 H Reviewed Pertinent PMH: Yes Objective Narrative Objective Narrative: Daily labs reviewed including BMP and troponins and proBNP
[2020-10-11 19:46] VITALS: BP 120/72; PULSE 62; RESP 18; TEMP 36.2; O2SAT 94
[2020-10-11] MEDS: Atorvastatin 40 MG TAB 80 MG PO (19:50)
[2020-10-12] VITALS (9 sets, daily range): BP systolic 103–146; BP diastolic 58–76; PULSE 59–70; RESP 17–18; TEMP 35.9–36.7; O2SAT 90–98
[2020-10-12] MEDS: Pantoprazole 40 MG TABCR PO (06:34)
[2020-10-12 07:57] LABS: Iron 34 ug/dL (65-175); Total Iron Binding Capacity 438 ug/dL (250-450); Transferrin Sat 8 % (20-55)
--- NOTE | 2020-10-12 08:00 | DI.US_ITS ---
Exam(s) US ABDOMEN EXAM: US ABDOMEN CLINICAL HISTORY: Ascites, anasarca, abdominal discomfort TECHNIQUE: Ultrasound of complete upper abdomen performed using standard protocol. COMPARISON: US US ECHOCARDIOGRAM from 10/12/2020 FINDINGS: There is significant ascites evident in both upper quadrants. LIVER: There are no hepatic lesions evident nor obvious dilatation of intrahepatic ducts. GALLBLADDER/BILIARY: There are no gallstones. No gallbladder wall edema nor pericholecystic fluid. The common hepatic duct isnot dilated, measuring 3mm at the level of emile hepatis. PANCREAS: Less than optimally visualized. No obvious abnormality on these less than optimal images. SPLEEN: The spleen is not enlarged and there are no intrasplenic lesions evident. KIDNEYS:Kidneys exhibit normal size with no evidence of solid mass, calculus, nor hydronephrosis. The re are 2 cysts in the left kidney. Largest is in lateral cortex and measures 2.5 x 2.4 cm. ABDOMINAL AORTA: Not able be study, apparently due to body habitus IVC: Normal diameter where visualized. IMPRESSION: 1. There is a moderate amount of ascites evident in both upper quadrants. 2. Multiple benign cyst in the left kidney noted. The largest measures 2.5 cm. No solid renal lesi ons evident. No hydronephrosis. 3. Pancreas and abdominal aorta were less than adequately visualized, apparently related to body hab itus patient not being able to hold his breath. Recommend follow-up CT scan of the abdomen pelvis given that there is ascites here. DATA REPOSITORY:
[2020-10-12 08:12] LABS: BUN 51 mg/dL (7-18); CO2 33.8 mmol/L (21.0-32.0); CREATININE 1.5 mg/dL (0.70-1.30); Calcium 8.6 mg/dL (8.5-10.1); Estimated GFR 45.14 (mL/min/1.73m2); Ferritin 25 ng/mL (26-388); Glucose 78 mg/dL (74-106); Sodium 138 mmol/L (136-145)
[2020-10-12 08:13] LABS: Anion Gap 5.2 mmol/L (3-11); Chloride 99 mmol/L (98-107); Potassium 4.2 mmol/L (3.5-5.1)
[2020-10-12 08:33] LABS: Folate 19.4 ng/mL (8.6-20.0); Vitamin B12 728 pg/mL (193-986)
[2020-10-12] MEDS: Metoprolol CR 100 MG TABCR PO (09:08)
[2020-10-12] MEDS: Aspirin E.C. 81 MG TABEC PO (09:08)
[2020-10-12] MEDS: Allopurinol 100 MG TAB PO (09:08)
[2020-10-12] MEDS: Enoxaparin 40 MG/0.4 ML SYR SC (11:18)
--- NOTE | 2020-10-12 11:23 | PHA.REVIEW ---
Pharmacy Admission Review - Admission Clinical Review (Last Reviewed 10/10/20 @ 19:55 by Von Lema) Anasarca (Acute) Acute exacerbation of CHF (congestive heart failure) (Acute) Heart failure, chronic, with acute decompensation (Acute 12/31/12) amlodipine Adverse Reaction (Intermediate, Unverified 09/29/20 08:37) Swelling/Edema enalapril maleate [From Vasotec] Adverse Reaction (Intermediate, Unverified 09/29/20 08:37) cough enalaprilat dihydrate [From Vasotec] Adverse Reaction (Intermediate, Unverified 09/29/20 08:37) cough Resuscitation Status DNR/DNI Height 5 ft 6.14 in Weight 84.5 kg - Renal Dosing Renal Dosing: BUN 51 mg/dL (7-18) H 10/12/20 06:50 Creatinine 1.5 mg/dL (0.70-1.30) H 10/12/20 06:50 Medications needing adjustments: Reviewed (Crcl ~36 mL/min current meds okay.) - Anticoagulation Anticoagulation: Hgb 11.4 g/dL (13.5-17.5) L 10/10/20 06:48 Hct 37.8 % (40.0-50.0) L 10/10/20 06:48 Plt Count 237 10^3/uL (130-400) 10/10/20 06:48 Creatinine 1.5 mg/dL (0.70-1.30) H 10/12/20 06:50 DVT Prophylaxis: Reviewed Medications: Enoxaparin Therapeutic Anticoagulation: N/A - Opiate Usage Evaluate Pain Scale/Pains Meds: N/A - Relevant Labs Sodium 138 mmol/L (136-145) 10/12/20 06:50 Potassium 4.2 mmol/L (3.5-5.1) 10/12/20 06:50 Chloride 99 mmol/L (98-107) 10/12/20 06:50 Magnesium 2.1 mg/dL (1.8-2.4) 10/11/20 07:33 Electrolytes, C-Reactive P, ESR: Reviewed - DM Control DM Control: Glucose 78 mg/dL (74-106) 10/12/20 06:50 Insulin Dosing: N/A - Heart Failure/DC Heart Failure/DC: Troponin I < 0.05 ng/mL (<0.06) 10/10/20 13:58 NT-Pro-B Natriuret Pep 99753 pg/mL (<300) H 10/11/20 07:33 EF%, CHARIS's, B-Blockers, Diuretics: Reviewed (Furosemide drip and po metoprolol currently ordered.) - BP Control BP Control: Blood Pressure 146/76 Blood Pressure 117/58 Blood Pressure 132/64 If elevated: Reviewed (BP has been up and down some so far this admission.) - Qtc Review If Elevated: N/A (QTc 459 on admission) - IV to PO Switch IV Medications: Reviewed - Home Meds Home Med List reviewed: Reviewed Relevent Home Meds Not ordered & why?: All of the pt's home meds are currently ordered. - Current meds Current Medication Order Review: Reviewed - Comments Comments/Follow Ups: Watch BP, SCr, labs, weight/fluid balance and for med changes (possible renal dose adjustments).
--- NOTE | 2020-10-12 14:38 | CHAPLAIN ---
Joaquín was resting in bed when I visited. His nurse was adjusting some of his cardiac monitors. Joaquín was very pleasant. He told me about his time in the service. Some of what he said was difficult to understand because of his speech. He traveled a great deal while he was in the service and said he probably wouldn't have left [place], [place] if the hadn't served. Many of his family members are still in [place], he said. Joaquín's exwife has been in touch with him. He has lived in [place] for the past 20 years or so.
--- NOTE | 2020-10-12 16:45 | PGE_ITS ---
Date of Service Date of service: 10/12/20 Time of Service: 16:45 Assessment and Plan Assessment and plan (1) Acute exacerbation of CHF (congestive heart failure): Status: Acute Assessment and plan: For acute ischemic event as evidenced by negative troponin levels. He has had no chest pain or pressure. We will continue furosemide drip and increase rate to 7.5 mg/h. We will also start him on spironolactone. Eventually once he is euvolemic I will add Diovan to his regimen. Patient has been placed on a fluid restricted diet low sodium. Qualifiers: Heart failure type: combined systolic and diastolic Qualified Code(s): I50.43 - Acute on chronic combined systolic (congestive) and diastolic (congestive) heart failure (2) Ischemic cardiomyopathy: Status: Chronic Assessment and plan: no evidence for ACS. Patient should have a follow-up stress MPI as an outpatient (3) Acute kidney injury superimposed on chronic kidney disease: Status: Resolved Assessment and plan: Stable and slightly improved creatinine with diuresis. (4) Anasarca: Status: Acute Assessment and plan: Abdominal ultrasound consistent with ascites. Presumption is secondary to combined systolic and diastolic heart failure. However will check CT scan of the abdomen pelvis since there was in adequate visualization on ultrasound. Subjective Subjective Interval history since last seen: Remains on Lasix drip at 5 mg an hour. He is net -965 mL from yesterday fluid balance of -1800. Unfortunately his weight really has not changed since yesterday's 84.5 kg. If his admission weight is correct. His reported weight was 90 kg in the emergency department but when he came up to the floor he was 84.5 mg. Patient feels some improvement in his dyspnea and his leg edema. He still has significant abdominal edema. He denies any chest pain or chest pressure or nausea or vomiting. Exam Narrative Exam Narrative: Elderly white male sitting up in chair. He has dysarthric speech which is not new. Lungs with bibasilar rales no rhonchi or wheezing Heart regular rate and rhythm without appreciable murmur rub Abdomen distended soft nontender with positive fluid wave consistent with ascites Lower extremities with 1+ pitting edema of his ankles and pretibial surfaces Neuro exam: He is alert and oriented person place time circumstance. Speech is somewhat dysarthric but I suspect this is from some vocal cord dysfunction possibly related to an old stroke. He says he has been this way for years. He has no focal motor deficits in his upper and lower extremities. Sensory exam grossly intact. Objective Last Vital Signs Temp 36.6 C 10/12/20 15:30 Pulse 70 10/12/20 15:30 Resp 17 10/12/20 15:30 BP 129/73 10/12/20 15:30 Pulse Ox 98 10/12/20 15:30 Laboratory Results - last 24 hr 10/12/20 10/12/20 10/12/20 06:50 06:50 06:50 Sodium 138 Potassium 4.2 Chloride 99 Carbon Dioxide 33.8 H Anion Gap 5.2 BUN 51 H Creatinine 1.5 H Estimated GFR/1.73 m2 45.14 Glucose 78 Calcium 8.6 Iron 34 L TIBC 438 Transferrin % Sat 8 L Ferritin 25 L Vitamin B12 728 Folate 19.4 Reviewed Pertinent PMH: Yes Objective Narrative Objective Narrative: Echocardiogram report and abdominal ultrasound report reviewed and are as follows. Exam(s) US ABDOMEN EXAM: US ABDOMEN CLINICAL HISTORY: Ascites, anasarca, abdominal discomfort TECHNIQUE: Ultrasound of complete upper abdomen performed using standard protocol. COMPARISON: US US ECHOCARDIOGRAM from 10/12/2020 FINDINGS: There is significant ascites evident in both upper quadrants. LIVER: There are no hepatic lesions evident nor obvious dilatation of intrahepatic ducts. GALLBLADDER/BILIARY: There are no gallstones. No gallbladder wall edema nor pericholecystic fluid. The common hepatic duct isnot dilated, measuring 3mm at the level of emile hepatis. PANCREAS: Less than optimally visualized. No obvious abnormality on these less than optimal images. SPLEEN: The spleen is not enlarged and there are no intrasplenic lesions evident. KIDNEYS:Kidneys exhibit normal size with no evidence of solid mass, calculus, nor hydronephrosis. There are 2 cysts in the left kidney. Largest is in lateral cortex and measures 2.5 x 2.4 cm. ABDOMINAL AORTA: Not able be study, apparently due to body habitus IVC: Normal diameter where visualized. IMPRESSION: 1. There is a moderate amount of ascites evident in both upper quadrants. 2. Multiple benign cyst in the left kidney noted. The largest measures 2.5 cm. No solid renal lesions evident. No hydronephrosis. 3. Pancreas and abdominal aorta were less than adequately visualized, apparently related to body habitus patient not being able to hold his breath. Recommend follow-up CT scan of the abdomen pelvis given that there is ascites here. DATA REPOSITORY: Ordered By: Von Lema CC: Dictated By: Donato Sears M.D. 10/12/20 1017 <Electronically signed by Donato Sears M.D. in [place]> 10/12/20 1017 Transcribed By: Donato Sears MD Echocardiogram demonstrated the patient was in ventricular bigeminy throughout the exam resulting in syncope variation with normal left ventricular chamber size but mildly reduced global LV systolic function with an estimated EF of 40 to 45% with diffuse hypokinesis. RV is normal in size with global normal systolic RV function. Moderately dilated left atrium. Moderately dilated right atrium. Mild mitral regurgitation. When compared to prior echocardiogram from 2009 LV is now mild to moderately reduced whereas it was normal in 2010. Pancho serna has impaired LV relaxation.
--- NOTE | 2020-10-12 17:13 | PDOC.CMIN ---
- If Service Date Differs Date of service: 10/12/20 Time of Service: 17:13 Care Management Initial Assess REASON FOR HOSPITALIZATION:: CHF PAST MEDICAL HISTORY/PAST SURGICAL HISTORY:: Medical History . Bladder neck contracture. CAD (coronary artery disease). CHF (congestive heart failure). EF 50% by echo in 03/19. Chronic kidney disease. DNI (do not intubate). DNR (do not resuscitate). Hypercholesterolemia. Hypertension. Ischemic cardiomyopathy. Palliative care patient. POLST (Physician Orders for Life-Sustaining Treatment). Prostate cancer. Surgical History . History of heart artery stent. S/P prostatectomy. Status post THR (total hip replacement) PREVIOUS FUNCTIONAL STATUS/SOCIAL/FAMILY SUPPORTS:: Joaquín lives alone in a stud apartment in [place], [place]. He has been marrried twice and is still in contact with one of his ex-wives who lives closeby with one of his sons.One of his other sons has been staying with him and will be there until the end of the year. Joaquín has 4 other children, several of which live out of state. He states his family is supportive. 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 He is independent at baseline and continues to drive. CURRENT FUNCTIONAL STATUS:: Joaquín was sitting up in a chair when CM met with him. He was pleasant and engaged readily with CM, known to him from previous admissions. 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 CM also discussed his CHF with him and asked questions about diet, salt intake, daily weights etc. It sounds as though Joaquín has a pretty good basic understanding of dietary restrictions and does weigh himself daily. He stated thats what alerted him - he gained 5 pounds in a week. ADVANCE DIRECTIVES:: [facility] on file Has patient been provided with info about the portal/API?: Yes Did the patient sign up for the portal?: Yes (previously) CODE STATUS:: DNR/DNI INSURANCE COVERAGE / FINANCIAL ISSUES:: Medicare. [employer] CURRENT HOME/COMMUNITY SERVICES/EQUIPMENT:: owns a walker and a cane but does not use them PRIMARY CARE PHYSICIAN:: Taz Collins MD POTENTIAL DISCHARGE NEEDS:: Follow up with providers and plan of care PATIENT/FAMILY EDUCATION NEEDS:: Discharge instructions, limitations, follow up plan of care, including Ask Me Three and self management. TRANSPORTATION:: via private vehicle with son PLAN:: Anticipate Joaquín will be discharged home with no new services when medically cleared by provider. He will follow up with his PCP and discharge plan of care as directed. He will be driven home via private vehicle by family/friends. CM will continue to follow.
[2020-10-12] MEDS: Atorvastatin 40 MG TAB 80 MG PO (19:56)
[2020-10-13] VITALS (7 sets, daily range): BP systolic 123–131; BP diastolic 63–79; PULSE 53–83; RESP 18; TEMP 36.1–38.4; O2SAT 90–96
--- NOTE | 2020-10-13 07:00 | DI.CT_ITS ---
Exam(s) CT ABDOMEN PELVIS WO EXAM: CT ABDOMEN PELVIS WO CLINICAL HISTORY: ascites TECHNIQUE: COMPARISON: CT CHEST FOR PULMONARY EMBOLUS from 09/20/[address] BRAIN NECK CTA from 08/19/2020 FINDINGS: CT examination of the abdomen and pelvis was performed with oral contrast only. There is a large rig ht pleural effusion with associated areas of right basilar atelectasis. There is a small left pleura l effusion. There is marked cardiomegaly and there is coronary artery calcification. There is moderate abdominal ascites. Hepatic contour is nodular consistent with cirrhosis. Heteroge neity of hepatic attenuation is noted without a focal mass. Grossly unremarkable appearance of the s pleen. Gallbladder is been surgically removed. No biliary dilatation noted. Pancreas is grossly un remarkable. 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 No evidence of bowel obstruction. No evidence of appendicitis or diverticulitis. Adrenals are unremarkable in appearance bilaterally. There are multiple bilateral low attenuation re nal lesions consistent with cysts and a couple of apparent tiny hyperdense cysts are also present on the right kidney. No evidence of hydronephrosis nephrolithiasis or ureterolithiasis. Urinary bladder is thick-walled which may represent bladder outlet obstruction versus inflammatory pr ocess versus neoplasm. Small bilateral fat containing inguinal hernias noted with some fluid in the right inguinal hernia. No significant abdominal or pelvic adenopathy. IMPRESSION: Moderate abdominal ascites with associated pleural effusions, presumably related to hepatic cirrhosis . Additional findings as described above. No acute process. RADIATION DOSE DELIVERED: 1,005.1mGy.cm Total DLP 17.42mGy CTDIvol RADIATION OPTIMIZATION: All CT scans at this facility use at least one of these dose optimization te chniques: automated exposure control; mA and/or kV adjustment per patient size (includes targeted exa ms where dose is matched to clinical indication); or iterative reconstruction.
[2020-10-13] MEDS: Breeza Beverage 473 ML BTL PO (09:04)
--- NOTE | 2020-10-13 09:18 | PDOC.CMPRO ---
- If Service Date Differs Date of service: 10/13/20 Time of Service: 09:18 Care Management Progress Note S/O:Joaquín was sitting up in his chair when CM met with him. he was smiling and engaged readily with CM. Joaquín shared that he gained 2 lbs between yesterday and today and cannot understand why. He stated that he is following the fluid restriction and eating only what he is given. joaquín continues to have ascites and is short of breath when reclining. This afternoon Dr. Rascon performed a paracentesis and removed 1900 cc of clear yellow fluid. Joaquín tolerated the procedure well. A: Joaquín is a 79 year old man admitted on 10/10/20 with CHF P:Anticipate Joaquín will be discharged home with no new services when medically cleared by provider. He will follow up with his PCP and discharge plan of care as directed. He will be driven home via private vehicle by family/friends. CM will continue to follow.
[2020-10-13 09:59] LABS: Anion Gap 3.6 mmol/L (3-11); BUN 56 mg/dL (7-18); CO2 34.4 mmol/L (21.0-32.0); CREATININE 1.5 mg/dL (0.70-1.30); Calcium 8.3 mg/dL (8.5-10.1); Chloride 101 mmol/L (98-107); Estimated GFR 45.14 (mL/min/1.73m2); Glucose 83 mg/dL (74-106); Potassium 4.3 mmol/L (3.5-5.1); Sodium 139 mmol/L (136-145)
[2020-10-13] MEDS: Spironolactone 25 MG TAB PO ×2 (10:27→19:53)
[2020-10-13] MEDS: Aspirin E.C. 81 MG TABEC PO (10:27)
[2020-10-13] MEDS: Pantoprazole 40 MG TABCR PO (10:27)
[2020-10-13] MEDS: Metoprolol CR 100 MG TABCR PO (10:27)
[2020-10-13] MEDS: Allopurinol 100 MG TAB PO (10:27)
[2020-10-13] MEDS: Normal Saline Flush 10 ML SYR IVP (10:28)
[2020-10-13] MEDS: Enoxaparin 40 MG/0.4 ML SYR SC (12:04)
--- NOTE | 2020-10-13 13:29 | PGE_ITS ---
Date of Service Date of service: 10/13/20 Time of Service: 13:29 Assessment and Plan Assessment and plan (1) Acute exacerbation of CHF (congestive heart failure): Status: Acute Assessment and plan: continue aggressive iv furosemide w/ titration to 10 mg/hr and addition of zaroxolyn and incr. spironolactone to 25 mg bid. will add Diovan once he is euvolemic. Given his large right pleural effusion, will consider thoracentesis to alleviate his PND/orthopnea Qualifiers: Heart failure type: combined systolic and diastolic Qualified Code(s): I50.43 - Acute on chronic combined systolic (congestive) and diastolic (congestive) heart failure (2) Ischemic cardiomyopathy: Status: Chronic Assessment and plan: no evidence for ACS. Patient should have a follow-up stress MPI as an outpatient (3) Acute kidney injury superimposed on chronic kidney disease: Status: Resolved Assessment and plan: stable despite aggressive diuresis (4) Anasarca: Status: Acute Assessment and plan: CT abdomen demonstrated moderate ascites and large right pleural effusion. He has cirrhosis probably d/t cardiac cirrhosis. I will ask surgery to perform paracentesis. (5) 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): Status: Acute Assessment and plan: I will check hepatitis profile but suspect secondary to cardiac cirrhosis from chronic right sided failure (6) Ascites: Status: Acute Assessment and plan: as above Qualifiers: Ascites type: other type Qualified Code(s): R18.8 - Other ascites (7) Pleural effusion: Status: Acute Subjective Subjective Interval history since last seen: Patient still having significant peripheral edema and ascites. He is less short of breath with activity but still says that when he lies flat he gets dyspneic. Abdomen is still quite large and he still has 1-2+ pitting edema in his lower legs and feet. Despite being on a furose mide drip at 7.5 mg an hour and receiving spironolactone 25 mg daily were not able to adequately diurese him. His weight actually went up today. His weight is 85.7 kg today whereas he had been 84.4 kg 2 days ago. And instead of losing fluids he actually had a net positive fluid balance yesterday of 60 mL. So far since midnight he is down 480 mL. I have him on a 1500 mL fluid restriction diet. Despite the diuresis his renal functions remained stable with a BUN of 56 creatinine 1.5. His iron studies came back with low serum iron and low ferritin. I am going to start him on iron supplementations for his chronic anemia. Because of the ongoing ascites been asked surgery to take a look at him and consider paracentesis. I have added Zaroxolyn to his regimen hoping to boost the effect of his furosemide. Once he is euvolemic I am going to put him on Diovan for his heart failure and keep him on spironolactone and higher doses of oral Lasix. Exam Narrative Exam Narrative: Elderly white male who is sitting up in his chair in no acute respiratory distress. HEENT is remarkable for prominent jugular veins Lungs are clear anteriorly posteriorly has some fine rales Heart regular rate and rhythm Abdomen is protuberant distended but soft with positive fluid wave consistent with ascites Lower extremities with 2+ pitting edema over the pretibial surfaces of both ankles and feet. Objective Last Vital Signs Temp 36.1 C L 10/13/20 08:31 Pulse 62 10/13/20 09:05 Resp 18 10/13/20 08:31 BP 131/79 10/13/20 08:31 Pulse Ox 96 10/13/20 08:31 Laboratory Results - last 24 hr 10/13/20 08:40 Sodium 139 Potassium 4.3 Chloride 101 Carbon Dioxide 34.4 H Anion Gap 3.6 BUN 56 H Creatinine 1.5 H Estimated GFR/1.73 m2 45.14 Glucose 83 Calcium 8.3 L Reviewed Pertinent PMH: Yes Objective Narrative Objective Narrative: Morning labs reviewed including BMP and CBC. CT with oral contrast was reviewed from yesterday. This shows a moderate to large right- sided pleural effusion small left pleural effusion along with cardiomegaly. He has moderate abdominal ascites.
[2020-10-13] MEDS: metOLazone 2.5 MG TAB 5 MG PO (14:07)
--- NOTE | 2020-10-13 16:30 | PAPNONF_PTH ---
PATIENT: Joaquín Yuan LOC: U#:[id number] AGE/SX: 79/M ROOM: [id number] RE10/10/[address]: Von Lema : 1940 BED: A DIS: 10/17/2020 SPEC #: [id number] RECD: 10/13/20 17:51 STATUS: BRITTNEY REQ #: [id number] RICARDO: 10/13/20 16:[address]: Von Lema DEPT: [facility] Cytology RECD BY: Sherri Cole ENTERED: 10/13/20 17:51 SP TYPE: LIANA SORENSEN DR: Haily Alvarez Tissues: 1 - BODY FLUID CYTO(NOT S/U/N/EM)[facility] Procedures: BODY FLUID CYTO(NOT SPU/UR/NIP/ENDOM)[facility] Comments: [id number] (TOTAL VOLUME = 60 ml's, SENT FRESH)
--- NOTE | 2020-10-13 16:57 | W.PM.OP ---
Date of service: 10/13/20 Time of Service: 16:57 Operative Note Operative Note DATE OF PROCEDURE: 10/13/20 PRE-OP DIAGNOSIS: ascites/DESAI POST-OP DIAGNOSIS: same PROCEDURE: paracentisis SURGEON: Mónica Rascon ANESTHESIA TYPE: Local By Surgeon Refer to Anesthesia Record ESTIMATED BLOOD LOSS: 2 PATHOLOGY: other Procedure Description: The patient is brought to the procedure room and placed in the supine position. Placement chosen on top in the right upper quadrant. A time-out is done. Ultrasound is used to localize the pocket. The area is prepped and draped in the usual sterile fashion using a ChloraPrep scrub solution. 20 cc's of 1% Lidocaine with epinephrine is used for local anesthetization. The abdomen is punctured and the catheter is inserted. 1900 of light yellow fluid is evacuated today. fluid is sent for studies. The catheter is removed. A suture is placed. Pressure dressing is applied. The patient tolerated the procedure well without complication.
[2020-10-13 17:42] LABS: Source Peritoneal; Source: Peritoneal
[2020-10-13 17:43] LABS: Clarity Cloudy; Nucleated Cells 389 uL (0)
[2020-10-13 18:24] LABS: Mononuclear Cells 80 %; Polynuclear Cells 20 %
[2020-10-13] MEDS: Atorvastatin 40 MG TAB 80 MG PO (19:53)
[2020-10-13] MEDS: Ascorbic Acid 500 MG TAB PO (19:53)
[2020-10-13] MEDS: Ferrous Sulfate 325 MG TAB PO (19:53)
[2020-10-14] VITALS (11 sets, daily range): BP systolic 112–133; BP diastolic 56–76; PULSE 54–65; RESP 16–19; TEMP 35.9–37.1; O2SAT 91–98
--- NOTE | 2020-10-14 | DI.RAD_ITS ---
Exam(s) XR HIP LT COMPLETE AP PELVIS EXAM: XR HIP LT COMPLETE AP PELVIS CLINICAL HISTORY: L. hip pain; hx of falls and remote hip replacemen. TECHNIQUE: 2D digital imaging was performed. COMPARISON: CR,XR XR HIP LT COMPLETE AP PELVIS from 09/14/2020 FINDINGS: Position alignment of the components of the left hip prosthesis remain stable. No fracture or loosen ing evident. Incidentally noted is contrast within the sigmoid colon and this reveals extensive diverticulosis. IMPRESSION: DATA REPOSITORY: RADIATION DOSE DELIVERED:
[2020-10-14] MEDS: Acetaminophen 325 MG TAB PO (07:42)
[2020-10-14] MEDS: Allopurinol 100 MG TAB PO (07:43)
[2020-10-14] MEDS: Pantoprazole 40 MG TABCR PO (07:43)
[2020-10-14] MEDS: Metoprolol CR 100 MG TABCR PO (07:43)
[2020-10-14] MEDS: Spironolactone 25 MG TAB PO ×2 (07:43→20:18)
[2020-10-14] MEDS: Ascorbic Acid 500 MG TAB PO ×2 (07:44→20:18)
[2020-10-14] MEDS: Aspirin E.C. 81 MG TABEC PO (07:44)
[2020-10-14] MEDS: Ferrous Sulfate 325 MG TAB PO ×2 (07:44→20:17)
[2020-10-14] MEDS: metOLazone 2.5 MG TAB 5 MG PO (07:44)
--- NOTE | 2020-10-14 08:51 | PDOC.CMPRO ---
- If Service Date Differs Date of service: 10/14/20 Time of Service: 08:51 Care Management Progress Note S/O:Joaquín was sitting up in his chair when CM met with him. He was pleasant, as usual, and engaged readily with CM. Joaquín had just returned from having an xray of his left hip which has been bothering him. 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 He also informed CM that he gained 2 more pounds. CM stated that in rounds, it was reported that he lost 2 pounds. Joaquín then explained that sometimes he is weighed while wearing the telemetry unit, and sometimes the nurse or FAILURE ANALYSIS ENGINEER holds it in their hand so as not to add the extra weight to his reading. He verbalized that he thought it might be better to do it the same every time. A: Joaquín is a 79 year old man admitted on 10/10/20 with CHF P:Anticipate Joaquín will be discharged home with no new services when medically cleared by provider. He will follow up with his PCP and discharge plan of care as directed. He will be driven home via private vehicle by family/friends. CM will continue to follow.
[2020-10-14] MEDS: Normal Saline Flush 10 ML SYR IVP (10:21)
[2020-10-14] MEDS: Enoxaparin 40 MG/0.4 ML SYR SC (11:43)
[2020-10-14 11:59] LABS: Anion Gap 5.7 mmol/L (3-11); BUN 64 mg/dL (7-18); CO2 34.3 mmol/L (21.0-32.0); Calcium 8.5 mg/dL (8.5-10.1); Chloride 100 mmol/L (98-107); Estimated GFR 32.39 (mL/min/1.73m2); Glucose 89 mg/dL (74-106); Potassium 3.9 mmol/L (3.5-5.1); Sodium 140 mmol/L (136-145)
--- NOTE | 2020-10-14 13:03 | PGE_ITS ---
Date of Service Date of service: 10/14/20 Time of Service: 13:03 Assessment and Plan Assessment and plan (1) Acute exacerbation of CHF (congestive heart failure): Status: Acute Assessment and plan: improving. wt 83.5 kg, down 1 kg from admission. Now oxygen down to 2 LPM w/ SPO2 93%. continue aggressive diuresis w/ lasix drip, oral zaroxoly and spironolactone and diet restrriction of sodium and fluids Qualifiers: Heart failure type: combined systolic and diastolic Qualified Code(s): I50.43 - Acute on chronic combined systolic (congestive) and diastolic (congestive) heart failure (2) Ischemic cardiomyopathy: Status: Chronic Assessment and plan: no evidence for ACS. Patient should have a follow-up stress MPI as an outpatient (3) Acute kidney injury superimposed on chronic kidney disease: Status: Resolved Assessment and plan: slight increase in his creatinine to 2.0 since admission. will monitor. hold on starting Diovan. (4) Anasarca: Status: Acute Assessment and plan: CT abdomen demonstrated moderate ascites and large right pleural effusion. He has cirrhosis probably d/t cardiac cirrhosis. I will ask surgery to perform paracentesis. (5) 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): Status: Acute Assessment and plan: I will check hepatitis profile but suspect secondary to cardiac cirrhosis from chronic right sided failure (6) Ascites: Status: Acute Assessment and plan: as above Qualifiers: Ascites type: other type Qualified Code(s): R18.8 - Other ascites (7) Pleural effusion: Status: Acute Assessment and plan: I reviewed his CXR w/ Dr. Abigail Mora, pulm/[facility]; who reviewed his chest xray and she would hold off doing thoracentesis unless it was quite large and causing some respiratory impairment; i.e. so larg that it was compressing what good lungs he has or the effusion were so large that it was impairing diaphragm function. Subjective Subjective Interval history since last seen: Dyspnea is improving. He can now lie in bed on his side w/out geting dyspnea. No significant cough. No CP. Exam Narrative Exam Narrative: Obese white male who has dysarthric speech; presumably d/t prior CVA Neck veins are not discernibly distended Lungs: bibaslar rales; no rhochi or wheezing Abdomen: large and distended w/ ascites fluid wave Legs:2+ pitting bilateral lower douglass and both feet Objective Last Vital Signs Temp 36.9 C 10/14/20 11:49 Pulse 64 10/14/20 11:49 Resp 18 10/14/20 11:49 BP 120/56 L 10/14/20 11:49 Pulse Ox 93 10/14/20 11:49 Laboratory Results - last 24 hr 10/13/20 10/13/20 10/13/20 16:30 16:30 16:53 Sodium Potassium Chloride Carbon Dioxide Anion Gap BUN Creatinine Estimated GFR/1.73 m2 Glucose Calcium Fluid Source Peritoneal Peritoneal Fluid Color Yellow Fluid Clarity Cloudy Fluid pH 7.0 Fluid WBC 389 Fld Polynuclear WBCs % 20 Cancelled Fluid Mononuclear Cell 80 Cancelled Fluid Other Cells Cancelled Path Cons Comment Cancelled 10/14/20 11:33 Sodium 140 Potassium 3.9 Chloride 100 Carbon Dioxide 34.3 H Anion Gap 5.7 BUN 64 H Creatinine 2.0 H Estimated GFR/1.73 m2 32.39 Glucose 89 Calcium 8.5 Fluid Source Fluid Color Fluid Clarity Fluid pH Fluid WBC Fld Polynuclear WBCs % Fluid Mononuclear Cell Fluid Other Cells Path Cons Comment
--- NOTE | 2020-10-14 15:34 | CHAPLAIN ---
Joaquín remembered me from a visit a couple of days ago. He said he's been doing okay. He had some fluid drained from his abdomen and feels better now, he added. He doesn't like not being trusted to get out of bed on his own and setting the alarm off. He continues to be pleasant and easily engages in conversation.
[2020-10-14] MEDS: Acetaminophen 500 MG TAB PO ×2 (15:35→20:17)
[2020-10-14] MEDS: Diclofenac 1% Gel 100 GM TUBE TP ×2 (17:30→20:49)
[2020-10-14] MEDS: Atorvastatin 40 MG TAB 80 MG PO (20:18)
[2020-10-15] VITALS (9 sets, daily range): BP systolic 110–142; BP diastolic 60–72; PULSE 55–76; RESP 18–21; TEMP 36–36.7; O2SAT 93–99
[2020-10-15 08:13] LABS: Anion Gap 3.4 mmol/L (3-11); BUN 74 mg/dL (7-18); CO2 36.6 mmol/L (21.0-32.0); CREATININE 2.3 mg/dL (0.70-1.30); Calcium 8.4 mg/dL (8.5-10.1); Chloride 99 mmol/L (98-107); Estimated GFR 27.57 (mL/min/1.73m2); Glucose 90 mg/dL (74-106); NT-proBNP 12141 pg/mL (<300); Sodium 139 mmol/L (136-145)
--- NOTE | 2020-10-15 08:44 | PDOC.CMPRO ---
- If Service Date Differs Date of service: 10/15/20 Time of Service: 08:44 Care Management Progress Note S/O:Joaquín was sitting up in his chair when CM met with him. He was pleasant, as usual, and engaged readily with CM. Joaquín shared that he has lost more weight since yesterday and that his breathing is much better. He anticipates being discharged home tomorrow. Joaquín's son Domingo contacted CM today with questions about his hospital course and discharge plan.Domingo expressed an interest in home health for his Dad however, Joaquín is not home bound and is not interested in that service. Questions were answered and Domingo verbalized being comfortable with the plan. Either Domingo or his brother Jabari will try to transport Joaquín, but, if necessary, CM will arrange for RCT. A: Joaquín is a 79 year old man admitted on 10/10/20 with CHF P:Anticipate Joaquín will be discharged home with no new services when medically cleared by provider. He will follow up with his PCP and discharge plan of care as directed. He will be driven home via private vehicle by family/friends. CM will continue to follow.
[2020-10-15] MEDS: Allopurinol 100 MG TAB PO (09:30)
[2020-10-15] MEDS: Acetaminophen 500 MG TAB PO ×4 (09:30→19:58)
[2020-10-15] MEDS: Spironolactone 25 MG TAB PO (09:30)
[2020-10-15] MEDS: Pantoprazole 40 MG TABCR PO (09:31)
[2020-10-15] MEDS: Ascorbic Acid 500 MG TAB PO ×2 (09:31→19:58)
[2020-10-15] MEDS: Aspirin E.C. 81 MG TABEC PO (09:31)
[2020-10-15] MEDS: Ferrous Sulfate 325 MG TAB PO ×2 (09:31→20:00)
[2020-10-15 11:16] LABS: HCT 34.2 % (40.0-50.0); HGB 10.6 g/dL (13.5-17.5); MCV 93.4 fL (80-95); MPV 10.2 fL (8.0-11.0); Platelet Count 240 10^3/uL (130-400); RBC 3.66 10^6/uL (4.36-5.78); RDW 14.6 % (11.8-14.1); RDW-SD 50.5 fL
[2020-10-15] MEDS: Enoxaparin 30 MG/0.3 ML SYR SC (11:45)
[2020-10-15] MEDS: Normal Saline Flush 10 ML SYR IVP (11:46)
--- NOTE | 2020-10-15 12:05 | PGE_ITS ---
Date of Service Date of service: 10/15/20 Time of Service: 12:05 Assessment and Plan Assessment and plan (1) Acute exacerbation of CHF (congestive heart failure): Status: Acute Assessment and plan: Marked improvement with continued weight loss and loss of leg edema. No longer having dyspnea. Unfortunately we have overshot and his BUN/creatinine are starting to climb. Diuretics have been held. Plan will be to repeat his BMP in the morning and proBNP in the morning. Hopefully discharge home tomorrow with home health services including nursing. Qualifiers: Heart failure type: combined systolic and diastolic Qualified Code(s): I50.43 - Acute on chronic combined systolic (congestive) and diastolic (congestive) heart failure (2) Ischemic cardiomyopathy: Status: Chronic Assessment and plan: no evidence for ACS. Patient should have a follow-up stress MPI as an outpatient (3) Acute kidney injury superimposed on chronic kidney disease: Status: Resolved Assessment and plan: BUN and creatinine worse today. Spironolactone put on hold (but was given today this a.m.), zaroxolyn dc. lasix dc. will repeat his BMP and his BNP tomorrow. (4) Anasarca: Status: Acute Assessment and plan: s/p paracentesis of 1.9 liters. Unfortunately no LDH was done on the peritoneal fluid. culture was negative. I suspect his ascites is d/t cardiac cirrhosis (5) 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): Status: Acute Assessment and plan: I will check hepatitis profile but suspect secondary to cardiac cirrhosis from chronic right sided failure. hepatitis serology is pending (6) Ascites: Status: Acute Assessment and plan: as above Qualifiers: Ascites type: other type Qualified Code(s): R18.8 - Other ascites (7) Pleural effusion: Status: Acute Assessment and plan: per my discussion w/ Dr. Mora, no indication for thoracentesis; just treat underlying conditions; i.e. CHF Subjective Subjective Interval history since last seen: Patient is feeling better. He is having no dyspnea. Leg edema has decreased. Weight is down 1.3 kg since yesterday. Overall he is lost 2.2 kg. However the patient notes that 1 day they weigh him with his satellite project site monitor on and other days they weighed him without his monitor on. CBC demonstrates a stable blood count. He has a chronic normocytic normochromic anemia. Hemoglobin 10.6 g. He has no leukocytosis. BMP shows worsening renal function. I think we have over diuresed him. BUN is up to 74 creatinine 2.3. I have discontinued his Lasix drip and put his spironolactone on hold and discontinued his Zaroxolyn. Rather than give him IV fluids we will just allow his renal function to recover by withholding his diuretics and allow him to drink as much water as he needs to. A repeat his BMP in the morning and if his BUN and creatinine are coming back down towards baseline I will discharge him home. He will probably need some additional diuretics to keep him out of failure. I have not started him on Diovan yet d/t his abnormal renal function but I am going to recommend this as an outpatient once his renal function has recovered. Exam Narrative Exam Narrative: Elderly white male sitting up in his chair eating his lunch. He is not wearing any oxygen. He has no respiratory discomfort. He is able to talk in complete paragraphs without getting dyspneic. Speech is mildly dysarthric but this is been a chronic issue Lungs are clear to auscultation anteriorly with minimal rales at the right base posteriorly. No rhonchi or wheezes. Heart is regular no appreciable murmur Abdomen is obese soft nontender edema has gone down since his paracentesis Legs are markedly improved there is no pitting pedal or pretibial edema. Objective Last Vital Signs Temp 36.5 C 10/15/20 08:54 Pulse 60 10/15/20 09:18 Resp 21 10/15/20 08:54 BP 129/63 10/15/20 08:54 Pulse Ox 99 10/15/20 08:54 Laboratory Results - last 24 hr 10/13/20 10/15/20 10/15/20 16:30 07:03 07:03 WBC 5.70 RBC 3.66 L Hgb 10.6 L Hct 34.2 L MCV 93.4 MCH 29.0 MCHC 31.0 L RDW 14.6 H Plt Count 240 MPV 10.2 Sodium 139 Potassium 4.0 Chloride 99 Carbon Dioxide 36.6 H Anion Gap 3.4 BUN 74 H Creatinine 2.3 H Estimated GFR/1.73 m2 27.57 Glucose 90 Calcium 8.4 L NT-Pro-B Natriuret Pep 81248 H Path Cons Comment SEE COMMENT
--- NOTE | 2020-10-15 16:05 | IN_ITS ---
Date of service: 10/15/20 Time of Service: 16:05 PT Notes Visit Reasons: acute exacerbation of CHF Physical Therapy Inpatient Initial Evaluation Date: 10/15/2020 Referring Doctor: Von Lema MD PT Orders: PT CONSULT: Eval/treat. Precautions: Fall. Standard. Activity as tolerated. Patient Profile/Admitting Diagnosis: Joaquín is a 79-year-old male who presented to the ED on 10/10/2020 due to increasing shortness of breath, 5-pound weight gain in the last week and B LE swelling. He is diagnosed with acute on chronic congestive heart failure and anasarca. PMHX: Medical History Bladder neck contracture CAD (coronary artery disease) CHF (congestive heart failure) EF 50% by echo in 03/19 Chronic kidney disease DNI (do not intubate) DNR (do not resuscitate) Hypercholesterolemia Hypertension Ischemic cardiomyopathy Palliative care patient POLST (Physician Orders for Life-Sustaining Treatment) Prostate cancer Surgical History History of heart artery stent S/P prostatectomy Status post THR (total hip replacement) Social History/Home Situation: Lives alone in a private home with 3 steps to enter with rails on both sides. One of his sons will be staying with him until the end of this year to help out with anything. Discontinued from skilled services at this hospital on 07/29/2020 at supervision level for 1000 feet without an assistive device. Equipment Owned/DME: Front-wheeled walker, SPC Subjective: Agreeable to PT consult. Denies dizziness, chest pain, and lightheadedness throughout. States that his hips act out from time to time but is surprised that they did well for this activity. States that at home he does not need to walk toot far and that he knows when to sit if needed. Objective: General Observation: Seated on bedside chair. IV access in the right UE. Mental Status: Alert and oriented x4 Pain: None reported ROM: Right Upper Extremity: Shoulder Flexion WFL. Shoulder abduction WFL. Elbow flexion WFL. Wrist flexion WFL. Functional opening and closing of hand WFL. Left Upper Extremity: Shoulder Flexion WFL. Shoulder abduction WFL. Elbow flexion WFL. Wrist flexion WFL. Functional opening and closing of hand WFL. Right Lower Extremity: Hip flexion WFL. Hip abduction WFL. Knee flexion WFL. Ankle dorsiflexion WFL. Ankle plantarflexion WFL. Left Lower Extremity: Hip flexion WFL. Hip abduction WFL. Knee flexion WFL. Ankle dorsiflexion WFL. Ankle plantarflexion WFL. Strength: Right Upper Extremity: Shoulder flexors 4/5. Shoulder abductors 4/5. Elbow flexors 4/5. Elbow extensors 4/5. Staffing Administrator strong. Left Upper Extremity: Shoulder flexors 4/5. Shoulder abductors 4/5. Elbow flexors 4/5. Elbow extensors 4/5. Staffing Administrator strong. Right Lower Extremity: Hip flexors 4/5. Hip abductors 4/5. Knee flexors 4/5. Knee extensors 4/5. Ankle dorsiflexors 4/5. Ankle plantarflexors 5/5. Left Lower Extremity: Hip flexors 4/5. Hip abductors 4/5. Knee flexors 4/5. Knee extensors 4/5. Ankle dorsiflexors 4/5. Ankle plantarflexors 4/5. Sensation: Intact as to pain and pressure on bilateral upper and lower extremities. Bed Mobility/Transfers: Supine to sit independent Sit to supine independent Sit to stand independent Stand to sit independent Bed to chair independent Chair to bed independent Gait: Guided patient ambulation of 350 feet using front-wheeled walker with no complaints of SOB. No LOB. Supervision only. Balance: Static Sitting: Normal Dynamic Sitting: Normal Static Standing: Good Dynamic Standing: Good Special Tests: Mobility Limitations Standardized Measure [facility] 6 clicks Basic Mobility Inpatient Short Form: Raw Score: 24 CMS Score: 0% deficit % deficit Informed Consent/Education: Patient instructed in purpose of PT consult and plan of care. Assessment: Joaquín demonstrates no change in mobility level in comparison to discharge status back in 07/29/2020. He is able to negotiate level surfaces of up to 350 feet without an assistive device. Goals: N/A. PT evaluation and one treatment session only. DISCHARGE RECOMMENDATIONS: May walk with nursing staff inside MS unit with supervision assist without an AD at least once a day. Home when medically cleared by hospitalist. No equipment needs at this time. TREATMENT CODE/TIME: [id number] minutes beginning at 16:05 PM. Thank you for the opportunity to participate in the care of this patient. Krystin Serna PT, DPT, CLT [facility] [place], [place]
[2020-10-15] MEDS: Atorvastatin 40 MG TAB 80 MG PO (19:57)
[2020-10-16 00:10] VITALS: BP 123/71; PULSE 76; RESP 18; TEMP 36.5; O2SAT 83
[2020-10-16 00:15] VITALS: O2SAT 84
[2020-10-16 00:20] VITALS: O2SAT 96
[2020-10-16 07:00] VITALS: BP 122/77; PULSE 60; RESP 18; TEMP 36.6; O2SAT 99
[2020-10-16 07:48] LABS: Anion Gap 4.3 mmol/L (3-11); BUN 75 mg/dL (7-18); CO2 35.7 mmol/L (21.0-32.0); CREATININE 2.1 mg/dL (0.70-1.30); Calcium 8.3 mg/dL (8.5-10.1); Chloride 97 mmol/L (98-107); Estimated GFR 30.62 (mL/min/1.73m2); Glucose 92 mg/dL (74-106); NT-proBNP 12414 pg/mL (<300); Potassium 3.8 mmol/L (3.5-5.1); Sodium 137 mmol/L (136-145)
[2020-10-16] MEDS: Diclofenac 1% Gel 100 GM TUBE TP ×2 (07:57→12:11)
[2020-10-16] MEDS: Allopurinol 100 MG TAB PO (07:58)
[2020-10-16] MEDS: Ferrous Sulfate 325 MG TAB PO ×2 (07:58→20:31)
[2020-10-16] MEDS: Aspirin E.C. 81 MG TABEC PO (07:58)
[2020-10-16] MEDS: Acetaminophen 500 MG TAB PO ×4 (07:58→20:30)
[2020-10-16] MEDS: Ascorbic Acid 500 MG TAB PO ×2 (07:58→20:31)
[2020-10-16] MEDS: Pantoprazole 40 MG TABCR PO (07:58)
[2020-10-16 10:30] LABS: Hepatitis C Ab w Rflx HCV PCR Negative (Negative)
[2020-10-16 10:33] LABS: Hepatitis A Antibody IgM Negative (Negative); Hepatitis B Core Antibody Negative (Negative); Hepatitis B surface Ag Negative (Negative); Hepatitis C Ab w Rflx HCV PCR Negative (Negative)
[2020-10-16] MEDS: Enoxaparin 30 MG/0.3 ML SYR SC (12:11)
--- NOTE | 2020-10-16 12:19 | PDOC.CMPRO ---
- If Service Date Differs Date of service: 10/16/20 Time of Service: 12:19 Care Management Progress Note S/O:Joaquín was sitting up in his chair when CM met with him. He was pleasant, as usual, and engaged readily with CM. Joaquín had hoped to be able to go home today but his BNP is still elevated as is BUN/Cr. The provider wanted to keep him one more day to repeat the bloodwork. Joaquín also had another ambulatory oxygen study today and his oxygen level remained at 90% or above throughout, so he will not need home O2. Son cornell updated again by CM. A: Joaquín is a 79 year old man admitted on 10/10/20 with CHF P:Anticipate Joaquín will be discharged home with no new services when medically cleared by provider. He will follow up with his PCP and discharge plan of care as directed. He will be driven home via private vehicle by family/friends. CM will continue to follow.
--- NOTE | 2020-10-16 14:39 | CHAPLAIN ---
Joaquín said he thinks he'll be staying another night. He was pleasant as usual and said he was given a new recliner to use and is really liking it.
--- NOTE | 2020-10-16 15:45 | W.PM.PROGNOT ---
Date of Service Date of service: 10/16/20 Time of Service: 15:45 Assessment and Plan Assessment and plan (1) Acute exacerbation of CHF (congestive heart failure): Status: Acute Assessment and plan: patient has had marked improvement in his dyspnea and oxygen requirements. His lasix has been on hold since yesterday. I would send him home but his renal function has not recovered yet from overdiuresis. His BUN and creatinine are 75 and 2.1. I will keep him off diuretic until tomorrow. Qualifiers: Heart failure type: combined systolic and diastolic Qualified Code(s): I50.43 - Acute on chronic combined systolic (congestive) and diastolic (congestive) heart failure (2) Acute kidney injury superimposed on chronic kidney disease: Status: Resolved Assessment and plan: BUN and creatinine are improving as noted above. cont. to hold diuretics. I think that he will require some additional diuretics as an outpatient. perhaps start low dose of spironolactone and avoid the zaroxolyn unless he is refractory. Diovan should be considered but will leave this to his PCP or cardiology as outpatient once his renal function settles (3) Ischemic cardiomyopathy: Status: Chronic Assessment and plan: no evidence for ACS. Patient should have a follow-up stress MPI as an outpatient (4) Anasarca: Status: Acute Assessment and plan: s/p paracentesis of 1.9 liters. Unfortunately no LDH was done on the peritoneal fluid. culture was negative. 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 I think this is DESAI secondary to cardiac cirrhosis (6) Ascites: Status: Acute Assessment and plan: as above Qualifiers: Ascites type: other type Qualified Code(s): R18.8 - Other ascites (7) Pleural effusion: Status: Acute Assessment and plan: per my discussion w/ Dr. Mora, no indication for thoracentesis; just treat underlying conditions; i.e. CHF (8) Discharge planning issues: Status: Acute Assessment and plan: patient will be dc home w/ his son; no other nursing needs were identified by CM. No other services other than follow up w/ PCP and/or cardiology Subjective Subjective Interval history since last seen: Patient reports some mild dyspnea w/ activity. However his nurse, Sabine, indicated that she ambulated him and he did not experience any hypoxemia. I will request a formal exercise oximetry study. Nursing report that the only time he needs oxygen is at night. Exam Narrative Exam Narrative: Patient is alert and oriented. He is sitting up in his chair watching TV Lungs: clear to auscultation anteriorly but some bibasilar rales. Abdomen: obese, soft, nontender; Legs: no edema (patient did not have his stockings on; he indicated that he had them on all night) Objective Last Vital Signs Temp 36.6 C 10/16/20 07:00 Pulse 60 10/16/20 07:00 Resp 18 10/16/20 07:00 BP 122/77 10/16/20 07:00 Pulse Ox 99 10/16/20 07:00 Laboratory Results - last 24 hr 10/13/20 10/15/20 10/15/20 Unknown 07:03 07:03 Sodium Potassium Chloride Carbon Dioxide Anion Gap BUN Creatinine Estimated GFR/1.73 m2 Glucose Calcium NT-Pro-B Natriuret Pep Fluid Glucose Cancelled Hepatitis A IgM Ab Negative Hep Bs Antigen Negative Hep B Core Total Ab Negative Hepatitis C Antibody Negative Negative 10/16/20 06:27 Sodium 137 Potassium 3.8 Chloride 97 L Carbon Dioxide 35.7 H Anion Gap 4.3 BUN 75 H Creatinine 2.1 H Estimated GFR/1.73 m2 30.62 Glucose 92 Calcium 8.3 L NT-Pro-B Natriuret Pep 88909 H Fluid Glucose Hepatitis A IgM Ab Hep Bs Antigen Hep B Core Total Ab Hepatitis C Antibody
[2020-10-16 16:17] VITALS: PULSE 56; PULSE 60; PULSE 82; RESP 17; RESP 18; RESP 20; O2SAT 90; O2SAT 94
[2020-10-16] MEDS: Atorvastatin 40 MG TAB 80 MG PO (20:30)
[2020-10-16] MEDS: Normal Saline Flush 10 ML SYR IVP (20:31)
[2020-10-16 21:30] LABS: Glucose, Fluid 105 mg/dL (See Note)
[2020-10-16 23:58] VITALS: BP 122/77; PULSE 80; RESP 18; TEMP 36.6; O2SAT 88
[2020-10-17 07:35] VITALS: BP 125/50; PULSE 66; RESP 18; TEMP 36; O2SAT 98
[2020-10-17] MEDS: Aspirin E.C. 81 MG TABEC PO (07:45)
[2020-10-17] MEDS: Ferrous Sulfate 325 MG TAB PO (07:46)
[2020-10-17] MEDS: Allopurinol 100 MG TAB PO (07:46)
[2020-10-17] MEDS: Ascorbic Acid 500 MG TAB PO (07:46)
[2020-10-17] MEDS: Acetaminophen 500 MG TAB PO ×2 (07:46→11:53)
[2020-10-17] MEDS: Pantoprazole 40 MG TABCR PO (07:46)
[2020-10-17] MEDS: Diclofenac 1% Gel 100 GM TUBE TP ×2 (07:47→11:54)
[2020-10-17 08:11] LABS: Anion Gap 2.8 mmol/L (3-11); BUN 70 mg/dL (7-18); CO2 35.2 mmol/L (21.0-32.0); CREATININE 1.6 mg/dL (0.70-1.30); Calcium 8.5 mg/dL (8.5-10.1); Chloride 98 mmol/L (98-107); Glucose 89 mg/dL (74-106); Potassium 4.1 mmol/L (3.5-5.1); Sodium 136 mmol/L (136-145)
[2020-10-17 09:38] VITALS: O2SAT 93
[2020-10-17 11:18] VITALS: BP 130/81; PULSE 71; RESP 20; TEMP 36.9; O2SAT 92
[2020-10-17] MEDS: Enoxaparin 30 MG/0.3 ML SYR SC (11:53)
[2020-10-17] MEDS: Normal Saline Flush 10 ML SYR IVP (12:11)
--- NOTE | 2020-10-17 13:48 | W.PM.DS.N ---
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): Status: Acute (6) Ascites: Status: Acute (7) Pleural effusion: Status: Acute Discharge Plan Disposition Patient Disposition: HOME Condition: Improving Discharge Details Reason For Visit: acute exacerbation of CHF Admit Date/Time: 10/10/20 08:17 Admit Provider: Von Lema Attending Provider: Von Lema Primary Care Provider: Haily Alvarez [facility] Course Hospital Course: This is a 79 yr old male w/ PMH of CAD (prior stents), ischemic cardiomyopathy (LVEF 50% per echo 03/20), CKD, HLD, HTN, prostate CA (s/p prostatectomy) who presented to the ED with a 5 lb wt gain over past week along wtith increased dyspnea, increased abdominal and bilateral leg edema and on arrival he had hypoxemia w/ SPO2 of 83%. He denies any CP. He states that he has been taking his lasix 40 mg twice a day but he has not been voiding as much and has had the edema and wt gain despite his lasix. EKG on admission demonstrated SR 70 bpm w/ 1st degree AVB GA 240 msec, and RBBB which is old. Troponin I normal at <0.05 (subsequent readings also normal at <0.05 x two more sets), BNP 14,372 (however he appears to be chronically in the 11,000 to 15,000 and has been as high as >35,000. CXR demonstrates moderate right pleural effusion and mild interstitial edema and cardiomegaly. He was give increased dosing of IV diuretics and admitted to hospitalist services for further evaluation and management. He was placed on a lasix drip. He had no symptoms of ischemia and serial troponins and EKG's remained unremarkable. Patient should have a follow-up stress MPI as an outpatient. Abdominal ultrasound consistent with ascites. Presumption is secondary to combined systolic and diastolic heart failure. He was noted to have acute on chronic renal insufficiency also through secondary to heart failure. this improved with diuresis. He is now stable, eating and drinking and voiding well. He denies any c/o and is agreeable with discharge to home. He will be started on spironalactone and and arb. will defer further medication adjustments to outpatient team. He should have his blood drawn prior to his outpatient follow up appointment. discussed with Dr Casillas. Home Meds and New Rx's Prescriptions: New spironolactone 25 mg Tablet 25 mg PO BID Qty: 60 RF: 0 valsartan [Diovan] 40 mg tablet 20 mg PO BID Qty: 60 RF: 0 Continued nitroglycerin 0.4 MG tablet, sublingual 0.4 mg Sublingual PRN PRNRF: 0 acetaminophen [Tylenol Arthritis Pain] 650 MG tablet extended release 1,300 mg PO Q6H PRN PRNQty: 0 RF: 0 aspirin [Aspir-81] 81 MG tablet,delayed release (DR/EC) 81 mg PO DAILY RF: 0 pantoprazole 40 mg Tablet,Delayed Release (Dr/Ec) 40 mg PO DAILY@0730 Qty: 30 RF: 0 allopurinol 100 MG tablet 100 mg PO DAILY Qty: 0 RF: 0 metoprolol succinate 25 MG tablet extended release 24 hr 100 mg PO DAILY Qty: 0 RF: 0 atorvastatin 40 mg tablet 80 mg PO DAILY RF: 0 furosemide 40 mg Tablet 40 mg PO BID@0830,1600 Qty: 60 RF: 0 Discharge Instructions Instructions: Heart Failure (DC) Additional Instructions: weight yourself 3 times weekly and report weight gain of greater than 5 pounds to your doctor. Stand Alone Forms: Nursing Discharge Form Referrals: Haily Alvarez [Primary Care Provider] - (please call Monday to make a follow up appointment for 1-2 weeks) Activity:: Activity as Tolerated Equipment/Supplies:: No Equipment Needed Diet:: As Tolerated Discharge Orders Discharge Orders: Discharge Order (Routine); Ordered 10/17/20 Ordered By: Jayshree Amaya Other Ambulatory Orders: Basic Metabolic Panel (Routine) Timeframe: 20201019 Location: None Selected Ordered By: Jayshree Amaya Discharge Data Discharge Date/Time-TO BE ENTERED AT DEPARTURE: 10/17/20 16:13 DS: Summary Time Spent with Patient providing and/or coordinating discharge services: Greater than 30 minutes Status at Discharge Functional status at discharge: independent ambulation Overall status at discharge: patient is progressing back to baseline Mental Status: mental status grossly normal Speech and Movement: speech and movement normal Mood: congruent mood Affect: normal affect Exam Const General: cooperative, no acute distress and well developed Nutritional Appearance: obese Orientation: alert, awake and oriented x3 HENMT Head: normal to inspection, no palpable skull fracture, normocephalic and atraumatic General nose exam: external nose normal Face and sinus: normal facial exam Mouth: oral mucosae normal Eyes General: appearance normal, both eyes and all related structures Sclera: sclerae normal Neck Neck: full ROM Chest Chest: normal inspection of the chest Resp Effort & Inspection: able to speak in complete sentences Auscultation: diminished lung sounds on the right in the lower lung spencer Cardio Rate: regular rate Rhythm: regular rhythm Heart Sounds: S1 normal and S2 normal GI Inspection: edema Laterality: bilateral Palpation: soft and nontender Auscultation: normal bowel sounds Back/Spine/Pelvis Back: no CVA tenderness Cervical Spine: normal cervical lordosis Thoracic/Lumbar Spine: thoracic and lumbar spine normal to inspection Skin General skin exam: no rashes or lesions noted Neuro General: patient alert, patient awake and patient oriented x3 Cognition: normal cognition Motor: muscle tone normal throughout and strength 5/5 throughout Extrem General: full ROM and edema Laterality: bilateral (2+ pitting bilateral lower leg edema from ankles to just below patellae) Psych Appearance: grossly normal Mental Status: mental status grossly normal Speech and Movement: speech and movement normal Mood: congruent mood Affect: normal affect Attitude: cooperative Thought Process: normal DS: Data Vitals/I&O Vitals and I&O: Vital Signs Temperature 36.9 C 10/17/20 11:18 Temperature Source Skin 10/17/20 11:18 Pulse 71 10/17/20 11:18 Pulse Rhythm Irregular 10/17/20 09:39 Pulse 65 10/10/20 08:50 Respiratory Rate 20 10/17/20 11:18 Respiratory Effort 10/17/20 09:39 Respiratory Depth Normal 10/17/20 09:39 Respiratory Pattern Normal 10/17/20 09:39 Blood Pressure 130/81 10/17/20 11:18 Blood Pressure Mean 105 10/10/20 08:47 Blood Pressure Position Sitting 10/10/20 06:29 Pulse Oximetry 92 10/17/20 11:18 Oxygen Delivery Method Room Air 10/17/20 11:18 Oxygen Flow Rate 0 10/17/20 11:18 Pain Level 0 10/16/20 23:58 Comment 10/17/20 07:35 Intake & Output 10/16/20 10/17/20 10/17/20 23:59 11:59 23:59 Intake Total 250 / 470 460 / 740 280 / 740 Output Total 450 / 1900 1900 / 1900 Balance -200 / -1430 -1440 / -1160 280 / -1160 Weight 82.5 kg Intake: IV Oral 240 / 460 460 / 740 280 / 740 Output: Urine 450 / 1900 1900 / 1900 Other: Urine Color Yellow Yellow Urine Appearance Clear Clear Urine Odor Normal Normal Comment pt reports yellow color and voided in toilet this am. Stool Size Large Moderate Stool Characteristics Soft [place] Brown Green Green Voiding Methods Toilet Data Completed and Pending Labs on day of discharge: Labs from last 24 hours 10/17/20 07:20 Sodium 136 Potassium 4.1 Chloride 98 Carbon Dioxide 35.2 H Anion Gap 2.8 L BUN 70 H Creatinine 1.6 H Estimated GFR/1.73 m2 41.90 Glucose 89 Calcium 8.5 PFSH Medical History Bladder neck contracture CAD (coronary artery disease) CHF (congestive heart failure) EF 50% by echo in 03/19 Chronic kidney disease DNI (do not intubate) DNR (do not resuscitate) Hypercholesterolemia Hypertension Ischemic cardiomyopathy Palliative care patient POLST (Physician Orders for Life-Sustaining Treatment) Prostate cancer Surgical History History of heart artery stent S/P prostatectomy Status post THR (total hip replacement) Family History Son No problems noted. Social History Smoking/Tobacco Use Status: Never Smoking risk assessment performed?: Yes Alcohol Intake: former Drug use: Never Substance use type: does not use Caregiver/Support person: Yes Communication Needs: Hard of Hearing and Corrective Lenses Education Level: high school Do you need help understanding health information?: Always Current gender identity: male How often do you talk on the phone with friends or family?: three or more times per week How often do you get together with friends or relatives?: three or more times per week Panel score (0-1 are the most socially isolated patients): 1 What type of physical activity do you participate in: walking Duration: 15-30 minutes/day Special deanna needs: No Seatbelt use: always Do you feel safe at home: Yes Do you feel safe in your relationship?: Yes Additional Social history: Son Berto is his main person who helps care for him. He is a , but was posted in [place] during the [employer] era. He has insurance with both medicare and [employer].
== END 2020-10-17 16:13 | disposition home or self-care (01) | DRG 291 ==
LOC: ER 08:28 → MS 09:34
PROVIDERS: Surgery; Admitting Provider Internal Medicine; Emergency Provider Emergency Medicine; PCP Nurse Practitioner Family; Visit Provider Internal Medicine
DX: I13.0 Hypertensive heart and chronic kidney disease with heart failure and stage 1 through stage 4 chronic kidney disease, or unspecified chronic kidney disease (principal); I50.43 Acute on chronic combined systolic (congestive) and diastolic (congestive) heart failure; N17.9 Acute kidney failure, unspecified; R18.8 Other ascites; I25.5 Ischemic cardiomyopathy; Z20.822 Contact with and (suspected) exposure to COVID-19; I27.20 Pulmonary hypertension, unspecified; N18.9 Chronic kidney disease, unspecified; I25.10 Atherosclerotic heart disease of native coronary artery without angina pectoris; Z95.5 Presence of coronary angioplasty implant and graft; E78.5 Hyperlipidemia, unspecified; Z85.46 Personal history of malignant neoplasm of prostate; Z66 Do not resuscitate; E78.00 Pure hypercholesterolemia, unspecified; K74.69 Other cirrhosis of liver; K75.81 Nonalcoholic steatohepatitis (NASH)
CPT/HCPCS: 36415; 49082; 80048; 80053; 85027; 86704; 86709; 86803; 87340; 87635; 89051; 93005; 94618; 96374; 97161; 99285; J1650; 71045; 73502; 74176; 76700; 81373; 82607; 82728; 82746; 83540; 83550; 83735; 83880; 83986; 84484; 85025; 87070; 87205; 88104; 93010; 93306; 99222; 99232; 99239; J1940

== ENCOUNTER 2020-10-23 16:35 | Outpatient (REF) | payer MEDICARE, OTHER, SELFPAY ==
[2020-10-23 21:26] LABS: HCT 34.2 % (40.0-50.0); HGB 10.5 g/dL (13.5-17.5); MCH 28.6 pg (27.0-33.0); MCHC 30.7 % (32.0-36.0); MCV 93.2 fL (80-95); MPV 9.9 fL (8.0-11.0); Platelet Count 278 10^3/uL (130-400); RBC 3.67 10^6/uL (4.36-5.78); RDW 15.2 % (11.8-14.1); RDW-SD 52.3 fL; WBC 6.94 10^3/uL (4.4-10.8)
[2020-10-23 21:29] LABS: Anion Gap 8.3 mmol/L (3-11); BUN 59 mg/dL (7-18); CO2 30.7 mmol/L (21.0-32.0); CREATININE 1.8 mg/dL (0.70-1.30); Calcium 8.7 mg/dL (8.5-10.1); Chloride 99 mmol/L (98-107); Estimated GFR 36.58 (mL/min/1.73m2); Glucose 101 mg/dL (74-106); Potassium 5.8 mmol/L (3.5-5.1); Sodium 138 mmol/L (136-145)
== END 2020-10-23 16:36 | disposition home or self-care (01) ==
LOC: NCHCN 16:35
PROVIDERS: PCP Nurse Practitioner Family; Visit Provider Family Medicine
DX: I50.9 Heart failure, unspecified (principal)
CPT/HCPCS: 80048; 85027

== ENCOUNTER 2020-10-30 16:11 | Outpatient (REF) | payer MEDICARE, OTHER, SELFPAY ==
[2020-10-30 20:51] LABS: Anion Gap 9.5 mmol/L (3-11); BUN 45 mg/dL (7-18); CO2 27.5 mmol/L (21.0-32.0); CREATININE 1.3 mg/dL (0.70-1.30); Calcium 8.9 mg/dL (8.5-10.1); Chloride 100 mmol/L (98-107); Estimated GFR 53.25 (mL/min/1.73m2); Glucose 102 mg/dL (74-106); Potassium 4.9 mmol/L (3.5-5.1); Sodium 137 mmol/L (136-145)
== END 2020-10-30 16:12 | disposition home or self-care (01) ==
LOC: NCHCN 16:11
PROVIDERS: PCP Nurse Practitioner Family; Visit Provider Family Medicine
DX: I10 Essential (primary) hypertension (principal); R42 Dizziness and giddiness; E83.42 Hypomagnesemia
CPT/HCPCS: 80048

== ENCOUNTER 2020-11-24 10:39 | Inpatient (IN) | payer MEDICARE, OTHER, SELFPAY ==
[2020-11-24] VITALS (48 sets, daily range): BP systolic 111–159; BP diastolic 55–117; PULSE 61–89; RESP 10–56; TEMP 36.5; O2SAT 86–100
--- NOTE | 2020-11-24 10:30 | RT.EKG_ITS ---
APPROVED REPORT Exam: Resting ECG Reason for Exam: dizzy,feels like going to pass out Patient Location: E HR:85 bpm ECG Measurements Heart Rate 85 AXIS HI [id number] P [id number] QRSd 151 QRS 20 QT 434 T -28 QTc 518 Conclusion 1st deg av block IVCD Paired ventricular premature complexes...sequence of 2 V complexes
--- NOTE | 2020-11-24 10:45 | DI.RAD_ITS ---
Exam(s) XR CHEST 2V PA LATERAL EXAM: XR CHEST 2V PA LATERAL CLINICAL HISTORY: SOB, dizzy, hx chf TECHNIQUE: 2D digital imaging was performed of the chest. Images were obtained. PA and lateral v iews were obtained. COMPARISON: CR,XR XR CHEST 2V PA LATERAL from 08/22/2020 FINDINGS: MEDIASTINUM: Normal. HEART: Mildly enlarged. PULMONARY VASCULATURE: Tortuosity and atherosclerosis of the thoracic aorta. LUNGS: Clear. PLEURAL SPACE: There is a small right pleural effusion. No left pleural effusion. No pneumothorax. BONE:Within normal limits for the patient's age. OTHER FINDINGS:Normal. IMPRESSION: Right pleural effusion. DATA REPOSITORY: RADIATION DOSE DELIVERED:
--- NOTE | 2020-11-24 11:00 | ED.GENADUL_ITS ---
Discharge Plan Disposition Patient Disposition: [facility] INPATIENT Condition: Improving Discharge Details Chief Complaint: Dizzy/Sync Clinical Impression: Heart failure, chronic, with acute decompensation Primary Care Provider: Haily Alvarez ED Provider: Edu Hutton Home Meds and New Rx's Prescriptions: No Action nitroglycerin 0.4 MG tablet, sublingual 0.4 mg Sublingual PRN PRNRF: 0 acetaminophen [Tylenol Arthritis Pain] 650 MG tablet extended release 1,300 mg PO Q6H PRN PRNQty: 0 RF: 0 aspirin [Aspir-81] 81 MG tablet,delayed release (DR/EC) 81 mg PO DAILY RF: 0 pantoprazole 40 mg Tablet,Delayed Release (Dr/Ec) 40 mg PO DAILY@0730 Qty: 30 RF: 0 allopurinol 100 MG tablet 100 mg PO DAILY Qty: 0 RF: 0 metoprolol succinate 25 MG tablet extended release 24 hr 100 mg PO DAILY Qty: 0 RF: 0 valsartan [Diovan] 40 mg tablet 20 mg PO BID Qty: 60 RF: 0 atorvastatin 40 mg tablet 80 mg PO DAILY RF: 0 furosemide 40 mg Tablet 40 mg PO BID@0830,1600 Qty: 60 RF: 0 Medical Decision Making This is a 79-year-old male who presents from home. He has a history of congestive heart failure, ischemic cardiomyopathy. He reports 2 days of feelings of lightheadedness particularly when exerting himself such as walking across the parking lot. He did not have chest pain, did not have syncope. He arrives to ER with a slightly elevated respirate approximately 20. Oxygenation is 91% on room air. Differential diagnosis includes dehydration v ersus fluid overload. Patient placed on 2 L nasal cannula oxygen for mild hypoxia at rest. Patient was placed on a naval gunfire spotter, laboratories obtained, referred for chest x-ray and laboratory testing. Labs reveal reassuring CBC, chemistries note BUN 53 and creatinine 1.4 which is significantly improved from patient's baseline. His BNP is elevated at 20,000 which is significantly elevated over baseline. Troponin is negative. Chest x-ray with fluid overload. Given the patient's age, symptomatic presentation, mild hypoxia, he was given parenteral diuretic and Case discussed for admission with hospitalist team. HPI General Mode of arrival: ambulatory . Date/Time Provider Initiated Documentation: 11/24/20 10:46 . Limitations to Documentation: no limitations . Information obtained by: patient . History of Present Illness 79 year old M presents to the emergency department with the chief complaint of 2 days of lightheadedness with exertion, described as moderate, and is localized to the head. Patient reports no radiation. Patient started experiencing this hour(s) and it has been intermittent. Rest improves symptom(s), Patient notes shortness of breath and other (Sheldon nauseated without emesis, states weight has maintained approximately 170 pounds); denies chest pain, syncope and weakness. Patient did receive the following treatments prior to arrival, none Related Data Home Medications Medication Instructions Recorded Confirmed nitroglycerin 0.4 mg SUBLINGUAL PRN PRN 12/31/12 11/24/20 acetaminophen [Tylenol Arthritis 1,300 mg PO Q6H PRN PRN #0 01/03/13 11/24/20 Pain] aspirin [Aspir-81] 81 mg PO DAILY 10/28/15 11/24/20 allopurinol 100 mg PO DAILY #0 tab 04/16/20 11/24/20 metoprolol succinate 100 mg PO DAILY #0 tab 04/16/20 11/24/20 pantoprazole 40 mg PO DAILY@0730 #30 tab 04/16/20 11/24/20 atorvastatin 80 mg PO DAILY 05/05/20 11/24/20 furosemide 40 mg PO BID@0830,1600 #60 tab 05/08/20 11/24/20 valsartan [Diovan] 20 mg PO BID #60 tab 10/17/20 11/24/20 Previous Rx's Medication Instructions Recorded acetaminophen [Tylenol Arthritis 1,300 mg PO Q6H PRN PRN #0 01/03/13 Pain] allopurinol 100 mg PO DAILY #0 tab 04/16/20 metoprolol succinate 100 mg PO DAILY #0 tab 04/16/20 pantoprazole 40 mg PO DAILY@0730 #30 tab 04/16/20 furosemide 40 mg PO BID@0830,1600 #60 tab 05/08/20 valsartan [Diovan] 20 mg PO BID #60 tab 10/17/20 Allergies Allergy/AdvReac Type Severity Reaction Status Date / Time amlodipine AdvReac Intermediate Swelling/Ed Unverified 11/24/20 10:51 lottie enalapril maleate AdvReac Intermediate cough Unverified 11/24/20 10:51 [From Vasotec] enalaprilat dihydrate AdvReac Intermediate cough Unverified 11/24/20 10:51 [From Vasotec] General Stated Complaint: Dizzy/Sync RUPESH: 2 Review of Systems Narrative: Reports weight of approximate 170 pounds. No new peripheral edema, urinating frequently and normally. Mild chronic cough that is unchanged. No chest pain, diaphoresis. No syncope. 8 systems reviewed and otherwise negative. [facility] Medical History Bladder neck contracture CAD (coronary artery disease) CHF (congestive heart failure) EF 50% by echo in 03/19 Chronic kidney disease DNI (do not intubate) DNR (do not resuscitate) Hypercholesterolemia Hypertension Ischemic cardiomyopathy Palliative care patient POLST (Physician Orders for Life-Sustaining Treatment) Prostate cancer Surgical History History of heart artery stent S/P prostatectomy Status post THR (total hip replacement) Family History Son No problems noted. Social History Smoking/Tobacco Use Status: Never Smoking risk assessment performed?: Yes Alcohol Intake: former Drug use: Never Substance use type: does not use Caregiver/Support person: Yes Communication Needs: Hard of Hearing and Corrective Lenses Education Level: high school Do you need help understanding health information?: Always Current gender identity: male How often do you talk on the phone with friends or family?: three or more times per week How often do you get together with friends or relatives?: three or more times per week Panel score (0-1 are the most socially isolated patients): 1 What type of physical activity do you participate in: walking Duration: 15-30 minutes/day Special deanna needs: No Seatbelt use: always Do you feel safe at home: Yes Do you feel safe in your relationship?: Yes Additional Social history: Son Berto is his main person who helps care for him. He is a , but was posted in [place] during the [employer] era. He has insurance with both medicare and [employer]. Exam Narrative Exam Narrative: GEN: awake, alert, oriented 3. Pleasant, well groomed, in teractive. HEAD: Normocephalic, atraumatic ENT: Mucous membranes moist, oropharynx unremarkable, External ear exam unremarkable EYES: PERRL, EOMI NECK: Full ROM, no GREG, no menigismus CHEST/RESP: Nontender, distant, question basilar rales CARDIOVASCULAR: Distant, RRR, no murmur, rub sanju. 2+ Rad pulse bilateral ABDOMEN: Soft, nontender, no mass. +Bowel sounds EXT: Full ROM, trace pretibial edema, no rash Neuro: Grossly normal neurologic exam, conversant, interactive. Psych: Speech fluent, thoughts congruent, affect normal Course Vital Signs Vital signs: Vital Signs Temperature 36.5 C 11/24/20 10:46 Pulse 66 11/24/20 10:46 Respiratory Rate 19 11/24/20 10:46 Pulse Oximetry 91 L 11/24/20 10:46 Temperature 36.5 C 11/24/20 10:46 Temperature Source Skin 11/24/20 10:46 Pulse 66 11/24/20 10:46 Respiratory Rate 19 11/24/20 10:46 Respiratory Effort Non-Labored 11/24/20 10:46 Pulse Oximetry 91 L 11/24/20 10:46 Oxygen Delivery Method Room Air 11/24/20 10:46 Oxygen Flow Rate 0 11/24/20 10:46 Pain Level 5 11/24/20 10:46
[2020-11-24 11:21] LABS: Abs Immature Grans 0.03 10^3/uL (0.0-0.06); Absolute Basophil Count 0.05 10^3/uL (0.0-0.2); Absolute Eosinophil Count 0.16 10^3/uL (0.0-0.7); Absolute Lymphocyte Count 1.37 10^3/uL (1.2-3.4); Absolute Monocyte Count 0.89 10^3/uL (0.1-0.8); Absolute Neutrophil Count 6.18 10^3/uL (1.2-6.7); Basophils % 0.6; Eosinophils % 1.8; HCT 41.3 % (40.0-50.0); HGB 12.6 g/dL (13.5-17.5); Immature Grans % 0.3; Lymphocytes % 15.8; MCH 28.1 pg (27.0-33.0); MCHC 30.5 % (32.0-36.0); MCV 92.2 fL (80-95); MPV 9.3 fL (8.0-11.0); Monocytes % 10.3; Neutrophils % 71.2; Nucleated RBC 0 %; Platelet Count 275 10^3/uL (130-400); RBC 4.48 10^6/uL (4.36-5.78); RDW-SD 54.2 fL; WBC 8.68 10^3/uL (4.4-10.8)
--- NOTE | 2020-11-24 11:30 | RT.EKG_ITS ---
APPROVED REPORT Exam: Resting ECG Reason for Exam: dizzy Patient Location: E HR:70 bpm ECG Measurements Heart Rate 70 AXIS KS 286 P -15 QRSd 153 QRS -3 QT 449 T -41 QTc 502 Conclusion Sinus rhythm. Multiform ventricular premature complexes. Sinus pause. Prolonged KS interval...KS >220, V-rate 50- 90 Right bundle branch block...QRSd>120, terminal axis(90,270)
[2020-11-24 12:43] LABS: ALT 40 U/L (16-63); AST 38 U/L (15-37); Albumin 3.5 g/dL (3.4-5.0); Alkaline Phosphatase 390 U/L (46-116); BUN 53 mg/dL (7-18); Bilirubin, Total 0.7 mg/dL (0.2-1.0); CREATININE 1.4 mg/dL (0.70-1.30); Calcium 8.7 mg/dL (8.5-10.1); Chloride 104 mmol/L (98-107); Estimated GFR 48.89 (mL/min/1.73m2); Glucose 102 mg/dL (74-106); Magnesium 2.3 mg/dL (1.8-2.4); NT-proBNP 20899 pg/mL (<300); Potassium 4.1 mmol/L (3.5-5.1); Sodium 139 mmol/L (136-145); Total Protein 7.3 g/dL (6.4-8.2); Troponin I < 0.05 ng/mL (<0.06)
[2020-11-24] MEDS: Aspirin 81 MG CHEW (13:50)
[2020-11-24] MEDS: Furosemide 40 MG/4 ML VIAL IVP (13:51)
[2020-11-24 14:09] LABS: Bilirubin Negative (Negative); Blood Trace-lysed (Negative); Clarity Clear (Clear); Glucose Negative (Negative); Ketones Negative (Negative); Leukocyte Esterase Negative (Negative); Nitrite Negative (Negative); Specific Gravity 1.015 (1.005-1.025); Urobilinogen 0.2 EU/dL (Up TO 0.2)
[2020-11-24 14:10] LABS: Source Nasal/Nares
[2020-11-24 14:22] LABS: Bacteria Few HPF (Negative); Crystals Negative HPF (Negative); Epithelial Cells Few HPF (Negative); Mucus Trace (Negative); RBC 0-2 HPF (0-2); WBC 0-2 HPF (0-5)
[2020-11-24 14:23] LABS: C & S Indicated? No; Casts 0-2 Coarse Granular LPF (Negative)
--- NOTE | 2020-11-24 15:05 | NUR.NOTE ---
Nursing Note: Attempted to call report to Med-Surg nursing staff. Was informed that nursing was in shift change report and ED would receive a call when finished.
[2020-11-24 15:18] LABS: Troponin I < 0.05 ng/mL (<0.06)
--- NOTE | 2020-11-24 15:25 | NUR.NOTE ---
Nursing Note: Pt report called to STACIE Winters -Med surg.
--- NOTE | 2020-11-24 16:47 | W.PM.HP.N ---
Date of service: 11/24/20 Time of Service: 16:47 Assessment and Plan Assessment and plan (1) Acute on chronic systolic CHF (congestive heart failure): Status: Acute Assessment and plan: improved after receiving IV lasix in the ED. weaned off oxygen. continue IV lasix, I&O, daily weights. follow labs echo september 2020: LV chamber size normal, EF 40-45% discussed with DR Casillas. History of Present Illness History of Present Illness Chief Complaint: shortness of breath Narrative: This is a 79-year-old male who presents from home. He has a history of congestive heart failure, ischemic cardiomyopathy. He reports 2 days of feelings of lightheadedness particularly when exerting himself such as walking across the parking lot. He did not have chest pain, did not have syncope. His work up in the ED consistent with congestive heart failure. He was given IV lasix with improvement in his symptoms. He was placed on 2 L nasal cannula oxygen for mild hypoxia at rest. He was admitted to med/surg for further diuresis and monitoring. Review of Systems All systems reviewed & are unremarkable except as noted in HPI and below Constitutional Constitutional: Denies fever(s) and Reports weakness (generalized yesterday, improved today) Cardiovascular Cardiovascular: Denies chest pain, Denies edema, Reports dyspnea and Reports dyspnea on exertion Respiratory Respiratory: Denies chest congestion, Denies cough, Reports dyspnea and Reports dyspnea on exertion Gastrointestinal Gastrointestinal: Denies abdominal pain and Denies nausea Neurologic Neurologic: Reports weakness (generalized yesterday, improved today) [facility] Medical History Bladder neck contracture CAD (coronary artery disease) CHF (congestive heart failure) EF 50% by echo in 03/19 Chronic kidney disease DNI (do not intubate) DNR (do not resuscitate) Hypercholesterolemia Hypertension Ischemic cardiomyopathy Palliative care patient POLST (Physician Orders for Life-Sustaining Treatment) Prostate cancer Surgical History History of heart artery stent S/P prostatectomy Status post THR (total hip replacement) Family History Son No problems noted. Social History Smoking/Tobacco Use Status: Never Smoking risk assessment performed?: Yes Alcohol Intake: former Drug use: Never Substance use type: does not use Caregiver/Support person: Yes Communication Needs: Hard of Hearing and Corrective Lenses Education Level: high school Do you need help understanding health information?: Always Current gender identity: male How often do you talk on the phone with friends or family?: three or more times per week How often do you get together with friends or relatives?: three or more times per week Panel score (0-1 are the most socially isolated patients): 1 What type of physical activity do you participate in: walking Duration: 15-30 minutes/day Special deanna needs: No Seatbelt use: always Do you feel safe at home: Yes Do you feel safe in your relationship?: Yes Additional Social history: Son Berto is his main person who helps care for him. He is a , but was posted in [place] during the [employer] era. He has insurance with both medicare and [employer]. Meds Allergies and Home Medications Allergies Allergy/AdvReac Type Severity Reaction Status Date / Time amlodipine AdvReac Intermediate Swelling/Ed Unverified 11/24/20 10:51 lottie enalapril maleate AdvReac Intermediate cough Unverified 11/24/20 10:51 [From Vasotec] enalaprilat dihydrate AdvReac Intermediate cough Unverified 11/24/20 10:51 [From Vasotec] Home Medications Medication Instructions Recorded Confirmed Type nitroglycerin 0.4 mg SUBLINGUAL PRN PRN 12/31/12 11/24/20 History acetaminophen [Tylenol Arthritis 1,300 mg PO Q6H PRN PRN #0 01/03/13 11/24/20 Rx Pain] aspirin [Aspir-81] 81 mg PO DAILY 10/28/15 11/24/20 History allopurinol 100 mg PO DAILY #0 tab 04/16/20 11/24/20 Rx metoprolol succinate 100 mg PO DAILY #0 tab 04/16/20 11/24/20 Rx pantoprazole 40 mg PO DAILY@0730 #30 tab 04/16/20 11/24/20 Rx atorvastatin 80 mg PO DAILY 05/05/20 11/24/20 History furosemide 40 mg PO BID@0830,1600 #60 tab 05/08/20 11/24/20 Rx valsartan [Diovan] 20 mg PO BID #60 tab 10/17/20 11/24/20 Rx Exam Const General: cooperative (elderly male of stated age), no acute distress, well developed and well groomed Nutritional Appearance: average body habitus Orientation: alert, awake and oriented x3 HENMT Head: normal to inspection, normocephalic and atraumatic Mouth: oral mucosae normal Resp Effort & Inspection: normal respiratory effort Auscultation: rales bilaterally at the base Cardio Rate: regular rate Rhythm: regular rhythm GI Inspection: normal to inspection Palpation: soft Auscultation: normal bowel sounds Skin General skin exam: no rashes or lesions noted Neuro General: patient alert, patient awake and patient oriented x3 Cranial Nerves: CN's II-XI intact bilaterally Extrem General: normal to inspection, full ROM and no pedal edema Results Labs Result diagrams: 11/25/20 06:50 11/25/20 06:50 Labs: Laboratory Results - last 24 hr 11/24/20 11/24/20 11/24/20 11:08 11:15 12:19 WBC 8.68 RBC 4.48 Hgb 12.6 L Hct 41.3 MCV 92.2 MCH 28.1 MCHC 30.5 L RDW 16.0 H Plt Count 275 MPV 9.3 Immature Gran % 0.3 Neutrophils % 71.2 Lymphocytes % 15.8 Monocytes % 10.3 Eosinophils % 1.8 Basophils % 0.6 Nucleated RBC % 0 Absolute Neutrophils 6.18 Absolute Lymphocytes 1.37 Absolute Monocytes 0.89 H Absolute Eosinophils 0.16 Absolute Basophils 0.05 Sodium Cancelled Potassium Cancelled Chloride Cancelled Carbon Dioxide Cancelled Anion Gap Cancelled BUN Cancelled Creatinine Cancelled Estimated GFR/1.73 m2 Cancelled Glucose Cancelled Calcium Cancelled Magnesium Cancelled Total Bilirubin Cancelled AST Cancelled ALT Cancelled Alkaline Phosphatase Cancelled Troponin I Cancelled NT-Pro-B Natriuret Pep Cancelled Total Protein Cancelled Albumin Cancelled Urine Color Yellow Urine Clarity Clear Urine pH 5.0 Ur Specific [place] 1.015 Urine Protein 100 H Urine Ketones Negative Urine Blood Trace-lysed H Urine Nitrite Negative Urine Bilirubin Negative Urine Urobilinogen 0.2 Ur Leukocyte Esterase Negative Urine RBC 0-2 Urine WBC 0-2 Ur Epithelial Cells Few Urine Crystals Negative Urine Bacteria Few Urine Casts 0-2 Coarse Granular Urine Mucus Trace Ur Culture Indicated? No Urine Glucose Negative COVID-19 Source 11/24/20 11/24/20 11/24/20 12:20 13:58 14:10 WBC RBC Hgb Hct MCV MCH MCHC RDW Plt Count MPV Immature Gran % Neutrophils % Lymphocytes % Monocytes % Eosinophils % Basophils % Nucleated RBC % Absolute Neutrophils Absolute Lymphocytes Absolute Monocytes Absolute Eosinophils Absolute Basophils Sodium 139 Potassium 4.1 Chloride 104 Carbon Dioxide 29.0 Anion Gap 6.0 BUN 53 H Creatinine 1.4 H Estimated GFR/1.73 m2 48.89 Glucose 102 Calcium 8.7 Magnesium 2.3 Total Bilirubin 0.7 AST 38 H ALT 40 Alkaline Phosphatase 390 H Troponin I < 0.05 Cancelled NT-Pro-B Natriuret Pep 28255 H Total Protein 7.3 Albumin 3.5 Urine Color Urine Clarity Urine pH Ur Specific [place] Urine Protein Urine Ketones Urine Blood Urine Nitrite Urine Bilirubin Urine Urobilinogen Ur Leukocyte Esterase Urine RBC Urine WBC Ur Epithelial Cells Urine Crystals Urine Bacteria Urine Casts Urine Mucus Ur Culture Indicated? Urine Glucose COVID-19 Source Nasal/Nares 11/24/20 14:32 WBC RBC Hgb Hct MCV MCH MCHC RDW Plt Count MPV Immature Gran % Neutrophils % Lymphocytes % Monocytes % Eosinophils % Basophils % Nucleated RBC % Absolute Neutrophils Absolute Lymphocytes Absolute Monocytes Absolute Eosinophils Absolute Basophils Sodium Potassium Chloride Carbon Dioxide Anion Gap BUN Creatinine Estimated GFR/1.73 m2 Glucose Calcium Magnesium Total Bilirubin AST ALT Alkaline Phosphatase Troponin I < 0.05 NT-Pro-B Natriuret Pep Total Protein Albumin Urine Color Urine Clarity Urine pH Ur Specific [place] Urine Protein Urine Ketones Urine Blood Urine Nitrite Urine Bilirubin Urine Urobilinogen Ur Leukocyte Esterase Urine RBC Urine WBC Ur Epithelial Cells Urine Crystals Urine Bacteria Urine Casts Urine Mucus Ur Culture Indicated? Urine Glucose COVID-19 Source Last Vital Signs Temp 36.5 C 11/24/20 10:46 Pulse 74 11/24/20 15:51 Resp 33 H 11/24/20 15:30 BP 159/67 H 11/24/20 14:31 Pulse Ox 94 11/24/20 15:30
[2020-11-24] MEDS: Heparin 5,000 UNITS/ML VIAL 5000 UNITS SC (17:57)
[2020-11-24 18:52] LABS: COVID-19 PCR Negative (Negative)
[2020-11-25] VITALS (10 sets, daily range): BP systolic 137–159; BP diastolic 60–80; PULSE 61–89; RESP 14–20; TEMP 35.6–37.1; O2SAT 90–93
[2020-11-25] MEDS: Heparin 5,000 UNITS/ML VIAL 5000 UNITS SC ×3 (01:32→17:34)
[2020-11-25 07:13] LABS: HCT 39.2 % (40.0-50.0); HGB 12.1 g/dL (13.5-17.5); MCH 28.2 pg (27.0-33.0); MCHC 30.9 % (32.0-36.0); MCV 91.4 fL (80-95); MPV 9.5 fL (8.0-11.0); Platelet Count 242 10^3/uL (130-400); RBC 4.29 10^6/uL (4.36-5.78); RDW 16.1 % (11.8-14.1); RDW-SD 54.5 fL; WBC 8.45 10^3/uL (4.4-10.8)
[2020-11-25 07:28] LABS: BUN 52 mg/dL (7-18); CREATININE 1.3 mg/dL (0.70-1.30); Chloride 104 mmol/L (98-107); Estimated GFR 53.25 (mL/min/1.73m2); Glucose 90 mg/dL (74-106); Magnesium 2.3 mg/dL (1.8-2.4); Potassium 3.8 mmol/L (3.5-5.1); Sodium 140 mmol/L (136-145)
[2020-11-25] MEDS: Metoprolol CR 100 MG TABCR PO (07:52)
[2020-11-25] MEDS: Atorvastatin 40 MG TAB 80 MG PO (07:52)
[2020-11-25] MEDS: Pantoprazole 40 MG TABCR PO (07:52)
[2020-11-25] MEDS: Furosemide 40 MG/4 ML VIAL IVP (07:52)
[2020-11-25] MEDS: Allopurinol 100 MG TAB PO (07:52)
[2020-11-25] MEDS: Aspirin E.C. 81 MG TABEC PO (07:52)
[2020-11-25] MEDS: Normal Saline Flush 10 ML SYR IVP (07:53)
--- NOTE | 2020-11-25 08:33 | INITIAL_ITS ---
- If Service Date Differs Date of service: 11/25/20 Time of Service: 08:33 Care Management Initial Assess REASON FOR HOSPITALIZATION:: CHF PAST MEDICAL HISTORY/PAST SURGICAL HISTORY:: Medical History . Bladder neck contracture. CAD (coronary artery disease). CHF (congestive heart failure). EF 50% by echo in 03/19. Chronic kidney disease. DNI (do not intubate). DNR (do not resuscitate). Hypercholesterolemia. Hypertension. Ischemic cardiomyopathy. Palliative care patient. POLST (Physician Orders for Life-Sustaining Treatment). Prostate cancer. Surgical History . History of heart artery stent. S/P prostatectomy. Status post THR (total hip replacemen PREVIOUS FUNCTIONAL STATUS/SOCIAL/FAMILY SUPPORTS:: Joaquín lives alone in a stud apartment in [place], [place]. He has been marrried twice and is still in contact with one of his ex-wives who lives closeby with one of his sons.One of his other sons has been staying with him and will be there until the end of the year. Joaquín has 4 other children, several of which live out of state. He states his family is supportive. 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 He is independent at baseline and continues to drive. CURRENT FUNCTIONAL STATUS:: Joaquín was sitting up in a chair when CM met with him. He was open to conversation and engaged easily with CM, well known to him from previous admissions. Joaquín shared that yesterday he had several episodes of lightheadedness which resolved with rest. He anticipates being discharged tomorrow. He informed CM that he feels he needs one more day in the hospital. ADVANCE DIRECTIVES:: [facility]ST on file Has patient been provided with info about the portal/API?: Yes Did the patient sign up for the portal?: Yes (previously) CODE STATUS:: DNR/DNI INSURANCE COVERAGE / FINANCIAL ISSUES:: Medicare. for Life CURRENT HOME/COMMUNITY SERVICES/EQUIPMENT:: owns a walker and cane but does not use PRIMARY CARE PHYSICIAN:: Haily Alvarez POTENTIAL DISCHARGE NEEDS:: Follow up with PCP and plan of care PATIENT/FAMILY EDUCATION NEEDS:: Discharge instructions, limitations, follow up plan of care, including Ask Me Three and self management. TRANSPORTATION:: via private vehicle with son PLAN:: Anticipate oJaquín will be discharged home with no new services when medically cleared by provider. He will follow up with his PCP and discharge pl an of care as directed. He will be driven home via private vehicle by his son. CM will continue to follow.
--- NOTE | 2020-11-25 13:03 | W.PM.PROGNOT ---
Date of Service Date of service: 11/25/20 Time of Service: 13:03 Assessment and Plan Assessment and plan (1) Acute on chronic systolic CHF (congestive heart failure): Status: Acute Assessment and plan: improved after receiving IV lasix in the ED. weaned off oxygen. weight down 76.6 kg from 82 kg on admission. continue IV lasix, I&O, daily weights. follow labs echo september 2020: LV chamber size normal, EF 40-45% (2) Discharge planning issues: Status: Acute Assessment and plan: anticipate discharge to home tomorrow discussed with Dr Casillas Subjective Subjective Patient reports: no new complaints, feels better, tolerating liquids well, tolerating a regular diet and afebrile Interval history since last seen: weaned off oxygen Exam Const General: cooperative (elderly male of stated age), no acute distress, well developed and well groomed Nutritional Appearance: average body habitus Orientation: alert, awake and oriented x3 HENMT Head: normal to inspection, normocephalic and atraumatic Mouth: oral mucosae normal Resp Effort & Inspection: normal respiratory effort Auscultation: rales bilaterally at the base Cardio Rate: regular rate Rhythm: regular rhythm GI Inspection: normal to inspection Palpation: soft Auscultation: normal bowel sounds Skin General skin exam: no rashes or lesions noted Neuro General: patient alert, patient awake and patient oriented x3 Cranial Nerves: CN's II-XI intact bilaterally Extrem General: normal to inspection, full ROM and no pedal edema Objective Last Vital Signs Temp 36.3 C L 11/25/20 11:15 Pulse 63 11/25/20 11:15 Resp 20 11/25/20 11:15 BP 155/60 H 11/25/20 11:15 Pulse Ox 92 11/25/20 11:15 Laboratory Results - last 24 hr 11/24/20 11/24/20 11/24/20 12:19 14:10 14:32 WBC RBC Hgb Hct MCV MCH MCHC RDW Plt Count MPV Sodium Potassium Chloride Carbon Dioxide Anion Gap BUN Creatinine Estimated GFR/1.73 m2 Glucose Calcium Magnesium Troponin I < 0.05 Urine Color Yellow Urine Clarity Clear Urine pH 5.0 Ur Specific [place] 1.015 Urine Protein 100 H Urine Ketones Negative Urine Blood Trace-lysed H Urine Nitrite Negative Urine Bilirubin Negative Urine Urobilinogen 0.2 Ur Leukocyte Esterase Negative Urine RBC 0-2 Urine WBC 0-2 Ur Epithelial Cells Few Urine Crystals Negative Urine Bacteria Few Urine Casts 0-2 Coarse Granular Urine Mucus Trace Ur Culture Indicated? No Urine Glucose Negative COVID-19 Source Nasal/Nares SARS-CoV-2 (PCR) Negative 11/25/20 11/25/20 06:50 06:50 WBC 8.45 RBC 4.29 L Hgb 12.1 L Hct 39.2 L MCV 91.4 MCH 28.2 MCHC 30.9 L RDW 16.1 H Plt Count 242 MPV 9.5 Sodium 140 Potassium 3.8 Chloride 104 Carbon Dioxide 29.0 Anion Gap 7.0 BUN 52 H Creatinine 1.3 Estimated GFR/1.73 m2 53.25 Glucose 90 Calcium 9.0 Magnesium 2.3 Troponin I Urine Color Urine Clarity Urine pH Ur Specific [place] Urine Protein Urine Ketones Urine Blood Urine Nitrite Urine Bilirubin Urine Urobilinogen Ur Leukocyte Esterase Urine RBC Urine WBC Ur Epithelial Cells Urine Crystals Urine Bacteria Urine Casts Urine Mucus Ur Culture Indicated? Urine Glucose COVID-19 Source SARS-CoV-2 (PCR)
[2020-11-26] VITALS (10 sets, daily range): BP systolic 126–156; BP diastolic 71–88; PULSE 65–87; RESP 16–18; TEMP 36.3–36.8; O2SAT 91–96
[2020-11-26] MEDS: Heparin 5,000 UNITS/ML VIAL 5000 UNITS SC ×3 (04:22→17:56)
[2020-11-26] MEDS: Pantoprazole 40 MG TABCR PO (07:50)
[2020-11-26] MEDS: Normal Saline Flush 10 ML SYR IVP (07:50)
[2020-11-26] MEDS: Furosemide 40 MG/4 ML VIAL IVP (07:50)
[2020-11-26] MEDS: Metoprolol CR 100 MG TABCR PO (07:51)
[2020-11-26] MEDS: Allopurinol 100 MG TAB PO (07:51)
[2020-11-26] MEDS: Aspirin E.C. 81 MG TABEC PO (07:51)
[2020-11-26] MEDS: Atorvastatin 40 MG TAB 80 MG PO (07:51)
--- NOTE | 2020-11-26 15:53 | CMPROGNOTE_ITS ---
- If Service Date Differs Date of service: 11/26/20 Time of Service: 15:53 Care Management Progress Note S/O:Joaquín was sitting up in a chair when CM met with him. He informed CM that he is feeling better but is still a little short of breath. Yesterday Joaquín had been told he would likely be discharged today. He informed the provider this morning that he felt he needed another day which aligned with the provider's assessment. He will likely be discharged tomorrow after a PT evaluation is com pleted. A: Joaquín is a 79 year old man admitted on 11/24/20 with CHF P:Anticipate Joaquín will be discharged home with no new services when medically cleared by provider. He will follow up with his PCP and discharge plan of care as directed. He will be driven home via private vehicle by his son. CM will continue to follow.
--- NOTE | 2020-11-26 15:55 | W.PM.PROGNOT ---
Date of Service Date of service: 11/26/20 Time of Service: 15:55 Assessment and Plan Assessment and plan (1) Acute on chronic systolic CHF (congestive heart failure): Status: Acute Assessment and plan: improved and continues to diurese well. weight down 77.3 kg from 82 kg on admission. continue IV lasix, I&O, daily weights. follow labs echo september 2020: LV chamber size normal, EF 40-45% (2) Discharge planning issues: Status: Acute Assessment and plan: anticipate discharge to home tomorrow discussed with Dr Casillas Subjective Subjective Patient reports: no new complaints, feels better, tolerating liquids well, tolerating a regular diet and afebrile Interval history since last seen: weaned off oxygen Exam Const General: cooperative (elderly male of stated age), no acute distress, well developed and well groomed Nutritional Appearance: average body habitus Orientation: alert, awake and oriented x3 HENMT Head: normal to inspection, normocephalic and atraumatic Mouth: oral mucosae normal Resp Effort & Inspection: normal respiratory effort Auscultation: rales bilaterally at the base Cardio Rate: regular rate Rhythm: regular rhythm GI Inspection: normal to inspection Palpation: soft Auscultation: normal bowel sounds Skin General skin exam: no rashes or lesions noted Neuro General: patient alert, patient awake and patient oriented x3 Cranial Nerves: CN's II-XI intact bilaterally Extrem General: normal to inspection, full ROM and no pedal edema Objective Last Vital Signs Temp 36.6 C 11/26/20 11:36 Pulse 68 11/26/20 11:36 Resp 18 11/26/20 11:36 BP 134/76 11/26/20 11:36 Pulse Ox 92 11/26/20 11:36
[2020-11-27] MEDS: Heparin 5,000 UNITS/ML VIAL 5000 UNITS SC ×2 (02:48→10:00)
[2020-11-27 03:55] VITALS: BP 177/74; PULSE 79; RESP 18; TEMP 36.6; O2SAT 94
[2020-11-27 07:00] VITALS: PULSE 76
[2020-11-27] MEDS: Allopurinol 100 MG TAB PO (07:33)
[2020-11-27] MEDS: Pantoprazole 40 MG TABCR PO (07:33)
[2020-11-27] MEDS: Aspirin E.C. 81 MG TABEC PO (07:34)
[2020-11-27] MEDS: Atorvastatin 40 MG TAB 80 MG PO (07:34)
[2020-11-27] MEDS: Metoprolol CR 100 MG TABCR PO (07:34)
[2020-11-27] MEDS: Furosemide 40 MG/4 ML VIAL IVP (07:52)
[2020-11-27 08:42] LABS: HCT 40.6 % (40.0-50.0); HGB 12.7 g/dL (13.5-17.5); MCH 28.8 pg (27.0-33.0); MCHC 31.3 % (32.0-36.0); MCV 92.1 fL (80-95); MPV 9.4 fL (8.0-11.0); Platelet Count 272 10^3/uL (130-400); RBC 4.41 10^6/uL (4.36-5.78); RDW 16.2 % (11.8-14.1); RDW-SD 54.9 fL
--- NOTE | 2020-11-27 11:25 | W.PM.DS.N ---
DS: Diagnosis Discharge Diagnosis (1) Acute on chronic systolic CHF (congestive heart failure): Start date: 11/27/20 Start time: 11:26 Status: Resolved Asessment and Plan: Patient duiresed with IVP lasix. Wt is down since admission, he feels better, no SOB, slight edema to bilateral lower extremities. Will apply compression stockings prior to discharge, no SOB continue home dosing of lasix, Ambulatory around room without difficulty. He is being discharge home. LSC, f/u with PCP in 1-[address] Casillas Discharge Plan Disposition Patient Disposition: HOME Condition: Good Discharge Details Reason For Visit: CHF Exacerbation Admit Date/Time: 11/24/20 14:13 Admit Provider: Gregorio Casillas Attending Provider: Gregorio Casillas Primary Care Provider: Haily Alvarez [facility] Course Hospital Course: This is a 79-year-old male who presented from home with a history of congestive heart failure, ischemic cardiomyopathy. He reported 2 days of feelings of lightheadedness particularly when exerting himself such as walking across the parking lot. He did not have chest pain, or syncope. His work up in the ED was consistent with congestive heart failure. He was given IV lasix with improvement in his symptoms, placed on 2 L nasal cannula oxygen for mild hypoxia at rest, and asked to be admitted to med/surg for further diuresis and monitoring. Over course of treatment he was diruresed with IVP lasix. Weaned off oxygen. On RA at 94%. Wt down from admission, ambulatory around room. Today he feels well. LSC, slight edema to bilateral lower extremities, however will have TEDs applied to them prior to admission. He is being discharged home on home dosing of lasix. F/u with PCP in 1-2 weeks. Home Meds and New Rx's Prescriptions: Continued nitroglycerin 0.4 MG tablet, sublingual 0.4 mg Sublingual PRN PRNRF: 0 acetaminophen [Tylenol Arthritis Pain] 650 MG tablet extended release 1,300 mg PO Q6H PRN PRNQty: 0 RF: 0 aspirin [Aspir-81] 81 MG tablet,delayed release (DR/EC) 81 mg PO DAILY RF: 0 pantoprazole 40 mg Tablet,Delayed Release (Dr/Ec) 40 mg PO DAILY@0730 Qty: 30 RF: 0 allopurinol 100 MG tablet 100 mg PO DAILY Qty: 0 RF: 0 metoprolol succinate 25 MG tablet extended release 24 hr 100 mg PO DAILY Qty: 0 RF: 0 valsartan [Diovan] 40 mg tablet 20 mg PO BID Qty: 60 RF: 0 atorvastatin 40 mg tablet 80 mg PO DAILY RF: 0 furosemide 40 mg Tablet 40 mg PO BID@0830,1600 Qty: 60 RF: 0 Discharge Instructions Instructions: Heart Failure (DC), Left-sided and Right-sided Heart Failure (DC) Additional Instructions: Follow up with PCP in 1-2 weeks Weigh self daily if greater than 2-3 pound wt gain call pcp for further instruction follow heart healthy low sodium diet. Stand Alone Forms: Nursing Discharge Form Referrals: Haily Alvarez [Primary Care Provider] - Activity:: Activity as Tolerated Equipment/Supplies:: No Equipment Needed Diet:: Low Sodium Discharge Orders Discharge Orders: Discharge Order (Routine); Ordered 11/27/20 Ordered By: Loren Degroot DS: Summary Time Spent with Patient providing and/or coordinating discharge services: Less than 30 minutes Status at Discharge Functional status at discharge: independent ambulation Overall status at discharge: patient is back to baseline Mental Status: mental status grossly normal Speech and Movement: speech and movement normal Mood: congruent mood Affect: normal affect Exam Const General: cooperative (elderly male of stated age), no acute distress, well developed and well groomed Nutritional Appearance: average body habitus Orientation: alert, awake and oriented x3 HENMT Head: normal to inspection, normocephalic and atraumatic Mouth: oral mucosae normal Resp Effort & Inspection: normal respiratory effort Auscultation: clear to auscultation bilaterally, diminished lung sounds (at bases) bilaterally and rales Cardio Rate: regular rate Rhythm: regular rhythm GI Inspection: normal to inspection Palpation: soft Auscultation: normal bowel sounds Skin General skin exam: no rashes or lesions noted Neuro General: patient alert, patient awake and patient oriented x3 Cranial Nerves: CN's II-XI intact bilaterally Extrem General: full ROM and edema Laterality: bilateral (+1 bilaterally ) Psych Mental Status: mental status grossly normal Speech and Movement: speech and movement normal Mood: congruent mood Affect: normal affect DS: Data Vitals/I&O Vitals and I&O: Vital Signs Temperature 36.6 C 11/27/20 03:55 Temperature Source Skin 11/27/20 03:55 Pulse 76 11/27/20 07:00 Pulse Rhythm Regular 11/27/20 09:16 Pulse 76 11/24/20 15:30 Respiratory Rate 18 11/27/20 03:55 Respiratory Effort Non-Labored 11/27/20 09:16 Respiratory Depth Normal 11/27/20 09:16 Respiratory Pattern Normal 11/27/20 09:16 Blood Pressure 177/74 H 11/27/20 03:55 Blood Pressure Mean 89 11/24/20 14:31 Pulse Oximetry 94 11/27/20 03:55 Oxygen Delivery Method Room Air 11/27/20 03:55 Oxygen Flow Rate 0 11/27/20 03:55 Pain Level 0 11/27/20 03:55 Comment 11/27/20 03:55 Intake & Output 11/26/20 11/26/20 11/27/20 11:59 23:59 11:59 Intake Total 480 / 480 264 / 264 Balance 480 / 480 264 / 264 Weight 77.3 kg 77.5 kg Intake: IV 14 Oral 480 / 480 250 / 250 Other: Comment pT has been voiding independent in toilet all day. pT is now on i&o and staff will be measuring urine Voiding Methods Toilet Toilet Data Completed and Pending Completed studies during hospitalization [Text1]: Exam(s) XR CHEST 2V PA LATERAL EXAM: XR CHEST 2V PA LATERAL CLINICAL HISTORY: SOB, dizzy, hx chf TECHNIQUE: 2D digital imaging was performed of the chest. Images were obtained. PA and lateral views were obtained. COMPARISON: CR,XR XR CHEST 2V PA LATERAL from 08/22/2020 FINDINGS: MEDIASTINUM: Normal. HEART: Mildly enlarged. PULMONARY VASCULATURE: Tortuosity and atherosclerosis of the thoracic aorta. LUNGS: Clear. PLEURAL SPACE: There is a small right pleural effusion. No left pleural effusion. No pneumothorax. BONE:Within normal limits for the patient's age. OTHER FINDINGS:Normal. IMPRESSION: Right pleural effusion. Labs on day of discharge: Labs from last 24 hours 11/27/20 08:32 WBC 8.40 RBC 4.41 Hgb 12.7 L Hct 40.6 MCV 92.1 MCH 28.8 MCHC 31.3 L RDW 16.2 H Plt Count 272 MPV 9.4 PFSH Medical History Bladder neck contracture CAD (coronary artery disease) CHF (congestive heart failure) EF 50% by echo in 03/19 Chronic kidney disease DNI (do not intubate) DNR (do not resuscitate) Hypercholesterolemia Hypertension Ischemic cardiomyopathy Palliative care patient POLST (Physician Orders for Life-Sustaining Treatment) Prostate cancer Surgical History History of heart artery stent S/P prostatectomy Status post THR (total hip replacement) Family History Son No problems noted. Social History Smoking/Tobacco Use Status: Never Smoking risk assessment performed?: Yes Alcohol Intake: former Drug use: Never Substance use type: does not use Caregiver/Support person: Yes Communication Needs: Hard of Hearing and Corrective Lenses Education Level: high school Do you need help understanding health information?: Always Current gender identity: male How often do you talk on the phone with friends or family?: three or more times per week How often do you get together with friends or relatives?: three or more times per week Panel score (0-1 are the most socially isolated patients): 1 What type of physical activity do you participate in: walking Duration: 15-30 minutes/day Special deanna needs: No Seatbelt use: always Do you feel safe at home: Yes Do you feel safe in your relationship?: Yes Additional Social history: Son Berto is his main person who helps care for him. He is a , but was posted in [place] during the [employer] era. He has insurance with both medicare and [employer].
--- NOTE | 2020-11-27 12:14 | PDOC.CMDIS ---
- If Service Date Differs Date of service: 11/27/20 Time of Service: 12:14 LACE Index Scoring Tool - Questions: Length of Stay (in days): 3 Acuity (Admit via E.D.?): Yes Comorbidities: Congestive Heart Failure, Any Tumor, Liver or Renal Disease E.D. Visits: 11 - Answers: Total Score: 15 Risk of Readmission: High Risk Care Management Discharge Reason for Hospitalization: CHF Discharge Plan: Joaquín will be discharged home with no new services. He will follow up with his PCP and discharge plan of care as directed. Joaquín has an appointment scheduled on Monday with orthopedics to address his right shoulder pain . He will be driven home via private vehicle by his son. Patient/Family Education Needs: Discharge instructions, limitations, follow up plan of care, including Ask Me Three and self management.
--- NOTE | 2020-11-27 12:30 | PT.INNT ---
Date of service: 11/27/20 PT Notes Visit Reasons: CHF Exacerbation Patient has been independent inside room without any assistive device. No skilled services neede at this time. referring provider updated and is in agreement. Thank you for the opportunity to participate in the care of this patient. Krystin Serna PT, DPT, CLT [facility] [place], [place]
== END 2020-11-27 14:39 | disposition home or self-care (01) | DRG 291 ==
LOC: ER 13:24 → MS 15:44
PROVIDERS: Admitting Provider Family Medicine; Emergency Provider Emergency Medicine; PCP Nurse Practitioner Family; Visit Provider Family Medicine
DX: I13.0 Hypertensive heart and chronic kidney disease with heart failure and stage 1 through stage 4 chronic kidney disease, or unspecified chronic kidney disease (principal); I50.23 Acute on chronic systolic (congestive) heart failure; N18.9 Chronic kidney disease, unspecified; I25.5 Ischemic cardiomyopathy; Z66 Do not resuscitate; R09.02 Hypoxemia; Z85.46 Personal history of malignant neoplasm of prostate; E78.00 Pure hypercholesterolemia, unspecified; I25.10 Atherosclerotic heart disease of native coronary artery without angina pectoris; N32.0 Bladder-neck obstruction; Z20.822 Contact with and (suspected) exposure to COVID-19
CPT/HCPCS: 36415; 80048; 80053; 85027; 87635; 93005; 96374; 99285; 71046; 81003; 81015; 83735; 83880; 84484; 85025; 93010; 99233; 99238; 99284; J1644; J1940

== ENCOUNTER 2020-12-17 14:46 | Emergency (ER) | payer MEDICARE, OTHER, SELFPAY ==
[2020-12-17] VITALS (62 sets, daily range): BP systolic 110–190; BP diastolic 63–135; PULSE 53–139; RESP 13–32; TEMP 36.1; O2SAT 82–100
--- NOTE | 2020-12-17 14:45 | RT.EKG_ITS ---
APPROVED REPORT Exam: Resting ECG Reason for Exam: SOB Patient Location: E HR:70 bpm ECG Measurements Heart Rate 70 AXIS ID 290 P 56 QRSd 144 QRS 3 QT 447 T -25 QTc 473 Conclusion Sinus rhythm...normal P axis, V-rate 60- 99 Ventricular premature complex...V complex w/ short R-R interval Prolonged ID interval...ID >220, V-rate 50- 90 Right bundle branch block...QRSd>120, terminal axis(90,270)
--- NOTE | 2020-12-17 15:15 | DI.RAD_ITS ---
Exam(s) XR PORTABLE CHEST AP EXAM: XR PORTABLE CHEST AP CLINICAL HISTORY: shortness of breath. TECHNIQUE: 2D digital imaging was performed. COMPARISON: CT CT ABDOMEN PELVIS WO from 10/13/2020 CR XR CHEST 2V PA LATERAL from 11/24/2020 FINDINGS: Cardiomegaly again noted. The mediastinum is not widened. Left lung is clear. Size of the right pleural effusion unchanged and is probably loculated. Mild adjacent infiltrate not ed. IMPRESSION: Right pleural effusion which appears loculated. Mild right lung base infiltrate Prominent cardiomegaly. No pulmonary edema. No obvious pleural effusion on the opposite-left side. DATA REPOSITORY: RADIATION DOSE DELIVERED: All CT scans at this facility use at least one of these dose optimization techniques: automated exposure control; mA and/or kV adjustment per patient size (includes targeted e xams where dose is matched to clinical indication); or iterative reconstruction.
--- NOTE | 2020-12-17 15:27 | W.ED.GENAD ---
Discharge Plan Disposition Patient Disposition: AGAINST MEDICAL ADVICE Condition: Serious Discharge Details Clinical Impression: CHF (congestive heart failure) Primary Care Provider: Haily Alvarez ED Provider: Von Loaiza Home Meds and New Rx's Prescriptions: Continued nitroglycerin 0.4 MG tablet, sublingual 0.4 mg Sublingual PRN PRNRF: 0 acetaminophen [Tylenol Arthritis Pain] 650 MG tablet extended release 1,300 mg PO Q6H PRN PRNQty: 0 RF: 0 aspirin [Aspir-81] 81 MG tablet,delayed release (DR/EC) 81 mg PO DAILY RF: 0 pantoprazole 40 mg Tablet,Delayed Release (Dr/Ec) 40 mg PO DAILY@0730 Qty: 30 RF: 0 allopurinol 100 MG tablet 100 mg PO DAILY Qty: 0 RF: 0 metoprolol succinate 25 MG tablet extended release 24 hr 100 mg PO DAILY Qty: 0 RF: 0 valsartan [Diovan] 40 mg tablet 20 mg PO BID Qty: 60 RF: 0 atorvastatin 40 mg tablet 80 mg PO DAILY RF: 0 furosemide 40 mg Tablet 40 mg PO BID@0830,1600 Qty: 60 RF: 0 Discharge Instructions Instructions: Heart Failure (ED), Pleural Effusion (ED) Additional Instructions: At this time it appears as though you are in a CHF exacerbation and I have recommended admission. You understand this but have decided to leave AGAINST MEDICAL ADVICE. Given this, I would like you to take a double dose of your Lasix tomorrow morning, contact your primary care provider to discuss your ER evaluation, ongoing symptoms, and need for close outpatient reevaluation. I am placing you on the care management list to help expedite outpatient follow-up. Please watch for new or worsening symptoms and return to the ER for any concerns. Discharge Data Discharge Date/Time-TO BE ENTERED AT DEPARTURE: 12/17/20 22:12 Medical Decision Making <DIPTI Houston - Last Filed: 12/21/20 08:59> Patient is in mild respiratory distress, he is hypoxic with extended speech, 87% has crackles at right base and left base at rest, oxygenation was 91% exam likely consistent with volume overload 1+ pitting edema to bilateral lower extremities, at this time, patient is pending diagnostic work-up low suspicion for pulmonary embolism as patient has history early of similar symptoms in the past, pending troponin, BNP, chest x-ray will be signed out to oncoming provider at 1600 last EF 1440 to 45% signed out to Von Loaiza pending reassessment and disposition Medical Records Medical records reviewed: Yes I reviewed the patient's medical records. <DIPTI Amador - Last Filed: 12/18/20 21:34> I assumed care of this 80-year-old gentleman from my colleague DIPTI Menchaca, please see her initial HPI and examination. In short this is an 80-year-old gentleman complaining of shortness of breath, significant past medical history of CAD, CHF, chronic renal disease, hypertension. Upon presentation O2 sats were 87%. He did have 1+ pitting edema bilateral lower extremities. Laboratory values reveal a white blood cell count of 6.87 hemoglobin 11.9 hematocrit 39.0 platelet count 286. Electrolytes unremarkable, BUN 45 creatinine 1.4 with a GFR of 48.76. Glucose 102. Troponin less than 0.05. BNP 17,545, this is actually lower than his most recent BNP but when looking historically this appears to be above his average. Given his elevated BNP, pitting edema, hypoxia, I do believe that admission is reasonable for lines oxygen and gentle diuresis. Will provide 40 IV Lasix now. X-ray read by our radiologist as an effusion which could be loculated and also potential pneumonia, clinically this is not appear to be pneumonia. Will obtain CTA of the chest for further evaluation of potential loculated effusion as this would likely change the disposition. CT of the chest does not reveal a loculated effusion, PE, or pneumonia. Repeat EKG performed at 182, please see official report by Dr. Remy. Sinus rhythm, right bundle branch block, no STEMI. Unfortunately no bed availability at our facility. At 2029 we confirmed that the patient could not be transferred to [facility] as they do not have availability either. I was able to speak with DIPTI Plummer, at 2049 to discuss the case. She called me back at 2117 stating that she could except the patient but not until tomorrow morning between 8:30 AM and 9 AM. Either she or Dr. Cash could be the excepting. Plan now is to reach out to either [facility] in [place] or [facility] for potential transfer at this time will except this bed placement as we have no other options but will continue to look. I spent ample time speaking both with patient and his ex- regarding the bed status, my multiple calls to multiple facilities attempting to find placement, and just the overall bed status. Patient is becoming impatient, no longer wants to wait for a bed, and states that he feels better overall. He was witnessed ambulating to the restroom, O2 sats dropped to 88%, overall his pitting edema does look slightly improved and he had at least 800 cc of urine output while here in the ER. Given his continued hypoxemia, and BNP, I have requested that he signs out AMA. Patient appears clinically sober, is of sound mind, and based upon my clinical examination has the capacity to make their own decisions. We have offered treatment options and discussed the the risks and benefits of these options and refusing these options, including and/or disability specific to the patient's pathology. Pt is able to discuss and understands the risks and benefits and alternatives of treatment and refusing treatment. We have tried to involve the patient's family or support group that was present here. The patient still chooses to leave before evaluation and treatment can be completed AGAINST MEDICAL ADVICE. Patient was instructed to take an extra dose of Lasix tomorrow morning and I have placed him on the care management list to help expedite outpatient primary care follow-up tomorrow. Strict return precautions were provided. This documentation was generated using [employer] dictation system, please disregard any oddities of phrase or misspellings. Medical Records Medical records reviewed: Yes I reviewed the patient's medical records. Imaging Data Radiologic Study: Attestation: I personally reviewed and interpreted this imaging study as follows: Imaging: X-Ray Radiologist's impression: Patient Name: Petey Smith #: [id number]: ER [facility]ing [facility] [id number]: REG ER Primary Care Provider: Kevin Alvarez of Exam: 12/17/20Sex: M Admission Date: 12/17/20 : 1940 Age: 80 Exam(s) XR PORTABLE CHEST AP EXAM: XR PORTABLE CHEST AP CLINICAL HISTORY: shortness of breath. TECHNIQUE: 2D digital imaging was performed. COMPARISON: CT CT ABDOMEN PELVIS WO from 10/13/2020 CR XR CHEST 2V PA LATERAL from 11/24/2020 FINDINGS: Cardiomegaly again noted. The mediastinum is not widened. Left lung is clear. Size of the right pleural effusion unchanged and is probably loculated. Mild adjacent infiltrate noted. IMPRESSION: Right pleural effusion which appears loculated. Mild right lung base infiltrate Prominent cardiomegaly. No pulmonary edema. No obvious pleural effusion on the opposite-left side. Radiologic Study #2: Attestation: I personally reviewed and interpreted this imaging study as follows: Imaging: CT Scan Radiologist's impression: PROCEDURE INFORMATION: Exam: CTA Chest With Contrast Exam date and time: 12/17/2020 4:44 PM Age: 80 years old Clinical indication: Chest wall pain; Patient HX: Chest pa radiating to tback TECHNIQUE: Imaging protocol: Computed tomographic angiography of the chest with contrast. 3D rendering (Not supervised by radiologist): MIP and/or 3D reconstructed images were created by the technologist. Radiation optimization: All CT scans at this facility use at least one of these dose optimization techniques: automated exposure control; mA and/or kV adjustment per patient size (includes targeted exams where dose is matched to clinical indication); or iterative reconstruction. Contrast material: OMNI-PAQUE 350; Contrast volume: 69 ml; Contrast route: INTRAVENOUS (IV); COMPARISON: CT CHEST PE CTA 07/23/2020 9:39 AM FINDINGS: Pulmonary arteries: Hounsfield attenuation of the right pulmonary artery measures 458 and therefore this study is diagnostic. No pulmonary emboli seen. Aorta: There is prominence to the ascending thoracic aorta with AP dimension of 42 mm. Main pulmonary artery measures 46 mm in transverse dimension. Lungs: There is a small volume of atelectatic lung adjacent to the right pleural effusion. Pulmonary vascular prominence present. Pleural spaces: There is a moderate to moderately large right pleural effusion. No pneumothorax. Mediastinum: Visualized portion of the thyroid is unremarkable. Heart size is significantly enlarged. No pericardial effusion or thickening. Esophagus is unremarkable. Lymph nodes: No lymphadenopathy. There are multiple subcentimeter mediastinal lymph nodes. PETEY SMITH Preliminary Radiology Report [employer] SUPERVISOR (QA) DISCREPANCY? If there is a discrepancy between the preliminary and final interpretation, please notify [facility] via [email or web address]. If you do not have access to our QA portal, call our QA team at [phone] CONFIDENTIALITY STATEMENT This report is intended only for the use of the referring physician, and only in accordance with law, If you received this in error, call [phone] Page 2 of 2 Superior abdomen: Visualized portion of the liver, gallbladder, adrenal glands, spleen, pancreas and largely decompressed stomach are unremarkable for patient's stated age, given the limitation of a nonenhanced study. There is a vague region calcification within the right kidney consistent with nephrocalcinosis. There is a incompletely seen 28 x 23 mm hypodensity within the body of the left kidney with Hounsfield attenuation of 3, finding consistent with simple fluid. Also seen is an incompletely visualized exophytic 11 mm left renal hypodensity with Hounsfield attenuation of -4, finding consistent with simple fluid. There are several diverticuli within the descending colon with intraluminal content without evidence diverticulitis. Significant free fluid is seen adjacent to the liver, stomach and spleen. No free air. No abdominal lymphadenopathy. There is significant atherosclerotic calcification within the visualized abdominal aorta and splenic artery. Bones/joints: No acute osseous injury or underlying osseous mass. Soft tissues: Unremarkable. IMPRESSION: 1. No pulmonary emboli. 2. Nonaneurysmal prominence of the ascending thoracic aorta with AP dimension of 42 mm. 3. Dilated main pulmonary artery measuring 46 mm concerning for pulmonary hypertension. 4. Moderate to moderately large right pleural effusion. 5. Significant cardiomegaly. 6. Two simple left renal cysts. No follow-up imaging recommended. 7. Significant free fluid adjacent to the liver, stomach and spleen. Thank you for allowing us to participate in the care of your patient. Lab Data Lab results reviewed: Yes I reviewed the patient's lab results. Labs: Laboratory Tests Range/Units 12/17/20 12/17/20 12/17/20 15:12 15:12 15:12 WBC (4.4-10.8) 10^3/uL 6.87 RBC (4.36-5.78) 10^6/uL 4.20 L Hgb (13.5-17.5) g/dL 11.9 L Hct (40.0-50.0) % 39.0 L MCV (80-95) fL 92.9 MCH (27.0-33.0) pg 28.3 MCHC (32.0-36.0) % 30.5 L RDW (11.8-14.1) % 16.4 H Plt Count (130-400) 10^3/uL 286 MPV (8.0-11.0) fL 9.5 Immature Gran % 0.3 Neutrophils % 68.6 Lymphocytes % 18.8 Monocytes % 10.0 Eosinophils % 1.6 Basophils % 0.7 Nucleated RBC % % 0 Absolute Neutrophils (1.2-6.7) 10^3/uL 4.71 Absolute Lymphocytes (1.2-3.4) 10^3/uL 1.29 Absolute Monocytes (0.1-0.8) 10^3/uL 0.69 Absolute Eosinophils (0.0-0.7) 10^3/uL 0.11 Absolute Basophils (0.0-0.2) 10^3/uL 0.05 Sodium (136-145) mmol/L 142 Potassium (3.5-5.1) mmol/L 4.4 Chloride (98-107) mmol/L 103 Carbon Dioxide (21.0-32.0) mmol/L 31.7 Anion Gap (3-11) mmol/L 7.3 BUN (7-18) mg/dL 45 H Creatinine (0.70-1.30) mg/dL 1.4 H Estimated GFR/1.73 m2 (mL/min/1.73m2) 48.76 Glucose (74-106) mg/dL 102 Calcium (8.5-10.1) mg/dL 8.9 Magnesium (1.8-2.4) mg/dL 2.3 Total Bilirubin (0.2-1.0) mg/dL 0.7 AST (15-37) U/L 61 H ALT (16-63) U/L 54 Alkaline Phosphatase (46-116) U/L 512 H Troponin I (<0.06) ng/mL < 0.05 NT-Pro-B Natriuret Pep (<300) pg/mL 18133 H Total Protein (6.4-8.2) g/dL 7.5 Albumin (3.4-5.0) g/dL 3.5 COVID-19 Source SARS-CoV-2 (PCR) (Negative) Range/Units 12/17/20 12/17/20 15:25 18:23 WBC (4.4-10.8) 10^3/uL RBC (4.36-5.78) 10^6/uL Hgb (13.5-17.5) g/dL Hct (40.0-50.0) % MCV (80-95) fL MCH (27.0-33.0) pg MCHC (32.0-36.0) % RDW (11.8-14.1) % Plt Count (130-400) 10^3/uL MPV (8.0-11.0) fL Immature Gran % Neutrophils % Lymphocytes % Monocytes % Eosinophils % Basophils % Nucleated RBC % % Absolute Neutrophils (1.2-6.7) 10^3/uL Absolute Lymphocytes (1.2-3.4) 10^3/uL Absolute Monocytes (0.1-0.8) 10^3/uL Absolute Eosinophils (0.0-0.7) 10^3/uL Absolute Basophils (0.0-0.2) 10^3/uL Sodium (136-145) mmol/L Potassium (3.5-5.1) mmol/L Chloride (98-107) mmol/L Carbon Dioxide (21.0-32.0) mmol/L Anion Gap (3-11) mmol/L BUN (7-18) mg/dL Creatinine (0.70-1.30) mg/dL Estimated GFR/1.73 m2 (mL/min/1.73m2) Glucose (74-106) mg/dL Calcium (8.5-10.1) mg/dL Magnesium (1.8-2.4) mg/dL Total Bilirubin (0.2-1.0) mg/dL AST (15-37) U/L ALT (16-63) U/L Alkaline Phosphatase (46-116) U/L Troponin I (<0.06) ng/mL < 0.05 NT-Pro-B Natriuret Pep (<300) pg/mL Total Protein (6.4-8.2) g/dL Albumin (3.4-5.0) g/dL COVID-19 Source Nasal/Nares SARS-CoV-2 (PCR) (Negative) Negative HPI <DIPTI Huoston - Last Filed: 12/21/20 08:59> General Mode of arrival: ambulatory. Date/Time Provider Initiated Documentation: 12/17/20 14:51. Limitations to Documentation: no limitations. Information obtained by: patient. HPI Narrative: This 80-year-old gentleman with history of ascites, cirrhosis, CHF, bronchitis, dysarthria, DNR/DNI, electrolyte abnormalities presents with report of shortness of breath and weight gain over the past several days. Denies any chest pain. Reports orthopnea. Feels the same as he has been failure. States he is taking 40 mg of Lasix twice daily as prescribed and has been taking this regularly. He denies any pleuritic chest pain. He denies any wheezing. Denies nausea or vomiting. Denies any falls or injuries. Denies any cough or known sick contacts. Related Data Home Medications Medication Instructions Recorded Confirmed nitroglycerin 0.4 mg SUBLINGUAL PRN PRN 12/31/12 12/20/20 acetaminophen [Tylenol Arthritis 1,300 mg PO Q6H PRN PRN #0 01/03/13 12/20/20 Pain] aspirin [Aspir-81] 81 mg PO DAILY 10/28/15 12/20/20 allopurinol 100 mg PO DAILY #0 tab 04/16/20 12/20/20 metoprolol succinate 100 mg PO DAILY #0 tab 04/16/20 12/20/20 pantoprazole 40 mg PO DAILY@0730 #30 tab 04/16/20 12/17/20 atorvastatin 80 mg PO DAILY 05/05/20 12/20/20 furosemide 40 mg PO BID@0830,1600 #60 tab 05/08/20 12/20/20 valsartan [Diovan] 20 mg PO BID #60 tab 10/17/20 12/20/20 Previous Rx's Medication Instructions Recorded acetaminophen [Tylenol Arthritis 1,300 mg PO Q6H PRN PRN #0 01/03/13 Pain] allopurinol 100 mg PO DAILY #0 tab 04/16/20 metoprolol succinate 100 mg PO DAILY #0 tab 04/16/20 pantoprazole 40 mg PO DAILY@0730 #30 tab 04/16/20 furosemide 40 mg PO BID@0830,1600 #60 tab 05/08/20 valsartan [Diovan] 20 mg PO BID #60 tab 10/17/20 Allergies Allergy/AdvReac Type Severity Reaction Status Date / Time amlodipine AdvReac Intermediate Swelling/Ed Unverified 12/17/20 14:56 lottie enalapril maleate AdvReac Intermediate cough Unverified 12/17/20 14:56 [From Vasotec] enalaprilat dihydrate AdvReac Intermediate cough Unverified 12/17/20 14:56 [From Vasotec] General Stated Complaint: RespSymp RUPESH: 3 Review of Systems <DIPTI Houston - Last Filed: 12/21/20 08:59> All systems reviewed & are unremarkable except as noted in HPI and below PFSH <DIPTI [place] - Last Filed: 12/21/20 08:59> Medical History Bladder neck contracture CAD (coronary artery disease) CHF (congestive heart failure) EF 50% by echo in 03/19 Chronic kidney disease DNI (do not intubate) DNR (do not resuscitate) Hypercholesterolemia Hypertension Ischemic cardiomyopathy Palliative care patient POLST (Physician Orders for Life-Sustaining Treatment) Prostate cancer Surgical History History of heart artery stent S/P prostatectomy Status post THR (total hip replacement) Family History Son No problems noted. Social History Smoking/Tobacco Use Status: Never Smoking risk assessment performed?: Yes Alcohol Intake: former Drug use: Never Substance use type: does not use Caregiver/Support person: Yes Communication Needs: Hard of Hearing and Corrective Lenses Education Level: high school Do you need help understanding health information?: Always Current gender identity: male How often do you talk on the phone with friends or family?: three or more times per week How often do you get together with friends or relatives?: three or more times per week Panel score (0-1 are the most socially isolated patients): 1 What type of physical activity do you participate in: walking Duration: 15-30 minutes/day Special deanna needs: No Seatbelt use: always Do you feel safe at home: Yes Do you feel safe in your relationship?: Yes Additional Social history: Son Berto is his main person who helps care for him. He is a , but was posted in [place] during the [employer] era. He has insurance with both medicare and [employer]. Exam <DIPTI Houston - Last Filed: 12/21/20 08:59> Const General: cooperative and no acute distress Eyes Pupils: PERRL Neck Neck: no JVD Resp Effort & Inspection: tachypneic Auscultation: crackles Cardio Rate: regular rate Rhythm: regular rhythm Other: Number GI Inspection: normal to inspection Other: No edema Skin General skin exam: no rashes or lesions noted Neuro General: patient alert and patient oriented x3 Extrem Other: Distal pulses intact, 2+ edema to bilateral lower extremities Course <DIPTI Houston Last Filed: 12/21/20 08:59> Vital Signs Vital signs: Vital Signs Temperature 36.1 C L 12/17/20 14:52 Pulse 108 H 12/17/20 14:52 Respiratory Rate 24 12/17/20 14:52 Blood Pressure 164/80 H 12/17/20 14:52 Pulse Oximetry 91 L 12/17/20 14:52 Temperature 36.1 C L 12/17/20 14:52 Temperature Source Temporal Artery Scan 12/17/20 14:52 Pulse 108 H 12/17/20 14:52 Respiratory Rate 22 12/17/20 15:16 Respiratory Effort 12/17/20 15:16 Respiratory Depth Normal 12/17/20 15:16 Respiratory Pattern Normal 12/17/20 15:16 Blood Pressure 164/80 H 12/17/20 14:52 Blood Pressure Position Sitting 12/17/20 14:52 Pulse Oximetry 91 L 12/17/20 14:52 Oxygen Delivery Method Room Air 12/17/20 14:52 Oxygen Flow Rate 0 12/17/20 14:52 <DIPTI Amador - Last Filed: 12/18/20 21:34> Critical Care Time Critical Care Time: Yes Total Critical Care Time: 35 Attestation: Upon my evaluation, this patient had a high probability of clinically significant, life-threatening deterioration due to their current medical conditions, which required my direct attention, intervention, and personal management. I have personally provided greater than 30 minutes of critical care time exclusive of the time spend on separately billable procedures. Time includes obtaining a history, examining the patient, pulse oximetry, review of laboratory data, radiology results, discussion with consultants, arranging urgent treatment with development of a management plan, evaluation of patient's response to treatment, and monitoring for potential decompensation. Interventions were performed as documented above. Sign Out <DIPTI [place] - Last Filed: 12/21/20 08:59> Sign Out Data: Sign Out Comment: pending labs, xray, dispo Last updated by Sherri Menchaca PA at 12/17/20 16:24
[2020-12-17 15:33] LABS: Abs Immature Grans 0.02 10^3/uL (0.0-0.06); Absolute Basophil Count 0.05 10^3/uL (0.0-0.2); Absolute Eosinophil Count 0.11 10^3/uL (0.0-0.7); Absolute Lymphocyte Count 1.29 10^3/uL (1.2-3.4); Absolute Monocyte Count 0.69 10^3/uL (0.1-0.8); Absolute Neutrophil Count 4.71 10^3/uL (1.2-6.7); Basophils % 0.7; Eosinophils % 1.6; HGB 11.9 g/dL (13.5-17.5); Immature Grans % 0.3; Lymphocytes % 18.8; MCH 28.3 pg (27.0-33.0); MCHC 30.5 % (32.0-36.0); MCV 92.9 fL (80-95); MPV 9.5 fL (8.0-11.0); Neutrophils % 68.6; Nucleated RBC 0 %; Platelet Count 286 10^3/uL (130-400); RDW 16.4 % (11.8-14.1); RDW-SD 55.8 fL; WBC 6.87 10^3/uL (4.4-10.8)
[2020-12-17 15:34] LABS: Source Nasal/Nares
[2020-12-17 15:55] LABS: ALT 54 U/L (16-63); AST 61 U/L (15-37); Albumin 3.5 g/dL (3.4-5.0); Alkaline Phosphatase 512 U/L (46-116); Anion Gap 7.3 mmol/L (3-11); BUN 45 mg/dL (7-18); Bilirubin, Total 0.7 mg/dL (0.2-1.0); CO2 31.7 mmol/L (21.0-32.0); CREATININE 1.4 mg/dL (0.70-1.30); Calcium 8.9 mg/dL (8.5-10.1); Chloride 103 mmol/L (98-107); Estimated GFR 48.76 (mL/min/1.73m2); Glucose 102 mg/dL (74-106); Magnesium 2.3 mg/dL (1.8-2.4); Potassium 4.4 mmol/L (3.5-5.1); Sodium 142 mmol/L (136-145); Total Protein 7.5 g/dL (6.4-8.2); Troponin I < 0.05 ng/mL (<0.06)
[2020-12-17 16:01] LABS: NT-proBNP 17545 pg/mL (<300)
--- NOTE | 2020-12-17 16:33 | DI.VRAD_ITS ---
PROCEDURE INFORMATION: Exam: XR Chest Exam date and time: 12/17/2020 3:19 PM Age: 80 years old Clinical indication: Other: Shortness of breath TECHNIQUE: Imaging protocol: XR of the chest. Views: 1 view. COMPARISON: CR XR CHEST 2V PA LATERAL 11/24/2020 1:04 PM FINDINGS: Lungs: There is atelectasis and/or infiltrate adjacent to known right pleural effusion. Pleural spaces: Stable to minimal interval increase in size of the right pleural effusion. No left pleural effusion or pneumothorax. Heart/Mediastinum: Cardiomegaly. There is a tortuous descending left thoracic aorta and off centered trachea. Transverse widening of the mediastinum noted likely due to rotated positioning. Bones/joints: Unremarkable for patient's stated age. IMPRESSION: 1. Atelectasis and/or infiltrate adjacent to known right pleural effusion. Clinical correlation recommended. 2. Stable to minimal interval increase in size of the right pleural effusion. 3. Cardiomegaly. Dictated and Authenticated by: Theron Koenig MD. Ordering:LUBA Polanco MD
[2020-12-17 16:37] LABS: COVID-19 PCR Negative (Negative)
[2020-12-17] MEDS: Furosemide 40 MG/4 ML VIAL IVP (16:55)
--- NOTE | 2020-12-17 18:10 | DI.CT_ITS ---
Exam(s) CT CHEST PE CTA EXAM: CT CHEST PE CTA CLINICAL HISTORY: sob, question of loculated effusion on x-ray. TECHNIQUE: Imaging Protocol: Axial CT angiography was performed with multi-slice acquisition and mu lti-planar and/or 3D reconstructions. CONTRAST MATERIAL: Intravenous: Omnipaque 350 Contrast volume:69 mL COMPARISON: CT CT CHEST PE CTA from 07/23/[address] CHEST PE CTA from 07/23/[address] ABDOMEN PELVIS WO from 10/13/2020 FINDINGS: Tracheobronchial tree: Patent where visualized. Pulmonary parenchyma: There is poor inspiration. The left lung is clear. There has been interval in crease in size of the right pleural effusion since 07/23/2020. There is now moderately large right pl eural effusion present. There is consolidation seen in both right middle and right lower lobes. Thi s may represent atelectasis or pneumonia. No architectural distortion. Pulmonary Arteries: No evidence of filling defect to suggest pulmonary emboli. There is mild prominen ce of the pulmonary arteries which may reflect pulmonary artery hypertension. Mediastinum and Lydia: No dominant adenopathy or fluid collection. Stable mildly prominent mediastinal lymph nodes. Visualized thyroid gland: Unremarkable. Pleura: Please see above. No pneumothorax. Heart: Cardiomegaly. There are coronary artery calcifications. No significant pericardial effusion. Aorta: The ascending thoracic aorta measures 4.3 x 4.3 cm. Atherosclerosis. The thoracic aorta is n ot well opacified. Upper abdomen: There is a small amount of abdominal ascites. Left renal cysts are again noted. The re is colonic diverticulosis. Soft tissues: Unremarkable. Bones: Within normal limits for the patient's age. IMPRESSION: 1. No evidence of pulmonary embolism, thoracic aortic dissection or aneurysm. 2. Ectasia of the ascending thoracic aorta. 3. Enlarged pulmonary arteries which may reflect pulmonary artery hypertension. 4. Interval increase in size of the right pleural effusion which is now moderately large. 5. Cardiomegaly. 6. Mild abdominal ascites. RADIATION DOSE DELIVERED: 439.7mGy.cm Total DLP DATA REPOSITORY: All CT scans at this facility are submitted to the National Radiology Data Registry (NRDR) Dose Index Registry (DIR) with the [employer] (ACR). RADIATION OPTIMIZATION: All CT scans at this facility use at least one of these dose optimization te chniques: automated exposure control; mA and/or kV adjustment per patient size (includes targeted exa ms where dose is matched to clinical indication); or iterative reconstruction.
[2020-12-17] MEDS: Normal Saline - Diluent 50 ML VIAL IV (18:14)
[2020-12-17] MEDS: Omnipaque 350 MG/ML 100 ML BTL 69 ML IJ (18:15)
--- NOTE | 2020-12-17 18:15 | RT.EKG_ITS ---
APPROVED REPORT Exam: Resting ECG Reason for Exam: sob Patient Location: E HR:71 bpm ECG Measurements Heart Rate 71 AXIS NH 242 P 53 QRSd 156 QRS -2 QT 448 T -14 QTc 486 Conclusion Sinus rhythm...normal P axis, V-rate 60- 99 Ventricular bigeminy...bigeminy string>4 w/ V complexes Prolonged NH interval...NH >220, V-rate 50- 90 Right bundle branch block...QRSd>120, terminal axis(90,270) Probable inferior infarct, age indeterminate...Q>35mS, T neg, II III aVF
[2020-12-17 18:49] LABS: Troponin I < 0.05 ng/mL (<0.06)
--- NOTE | 2020-12-17 19:06 | DI.VRAD_ITS ---
PROCEDURE INFORMATION: Exam: CTA Chest With Contrast Exam date and time: 12/17/2020 4:44 PM Age: 80 years old Clinical indication: Chest wall pain; Patient HX: Chest pa radiating to tback TECHNIQUE: Imaging protocol: Computed tomographic angiography of the chest with contrast. 3D rendering (Not supervised by radiologist): MIP and/or 3D reconstructed images were created by the technologist. Radiation optimization: All CT scans at this facility use at least one of these dose optimization techniques: automated exposure control; mA and/or kV adjustment per patient size (includes targeted exams where dose is matched to clinical indication); or iterative reconstruction. Contrast material: OMNI-PAQUE 350; Contrast volume: 69 ml; Contrast route: INTRAVENOUS (IV); COMPARISON: CT CHEST PE CTA 07/23/2020 9:39 AM FINDINGS: Pulmonary arteries: Hounsfield attenuation of the right pulmonary artery measures 458 and therefore this study is diagnostic. No pulmonary emboli seen. Aorta: There is prominence to the ascending thoracic aorta with AP dimension of 42 mm. Main pulmonary artery measures 46 mm in transverse dimension. Lungs: There is a small volume of atelectatic lung adjacent to the right pleural effusion. Pulmonary vascular prominence present. Pleural spaces: There is a moderate to moderately large right pleural effusion. No pneumothorax. Mediastinum: Visualized portion of the thyroid is unremarkable. Heart size is significantly enlarged. No pericardial effusion or thickening. Esophagus is unremarkable. Lymph nodes: No lymphadenopathy. There are multiple subcentimeter mediastinal lymph nodes. Superior abdomen: Visualized portion of the liver, gallbladder, adrenal glands, spleen, pancreas and largely decompressed stomach are unremarkable for patient's stated age, given the limitation of a nonenhanced study. There is a vague region calcification within the right kidney consistent with nephrocalcinosis. There is a incompletely seen 28 x 23 mm hypodensity within the body of the left kidney with Hounsfield attenuation of 3, finding consistent with simple fluid. Also seen is an incompletely visualized exophytic 11 mm left renal hypodensity with Hounsfield attenuation of -4, finding consistent with simple fluid. There are several diverticuli within the descending colon with intraluminal content without evidence diverticulitis. Significant free fluid is seen adjacent to the liver, stomach and spleen. No free air. No abdominal lymphadenopathy. There is significant atherosclerotic calcification within the visualized abdominal aorta and splenic artery. Bones/joints: No acute osseous injury or underlying osseous mass. Soft tissues: Unremarkable. IMPRESSION: 1. No pulmonary emboli. 2. Nonaneurysmal prominence of the ascending thoracic aorta with AP dimension of 42 mm. 3. Dilated main pulmonary artery measuring 46 mm concerning for pulmonary hypertension. 4. Moderate to moderately large right pleural effusion. 5. Significant cardiomegaly. 6. Two simple left renal cysts. No follow-up imaging recommended. 7. Significant free fluid adjacent to the liver, stomach and spleen. Dictated and Authenticated by: Theron Koenig MD. Ordering:LAY Longoria MD
--- NOTE | 2020-12-18 10:32 | CMPROGNOTE_ITS ---
- If Service Date Differs Date of service: 12/18/20 Time of Service: 10:32 Care Management Progress Note Joaquín is seen in the ED for CHF exacerbation. Admission is recommended by ED provider but Joaquín declines and leaves AMA. CM is asked to ensure he has a follow up appointment with his PCP. CM contacts the [facility] and speaks with Syd who advises that Joaquín has a follow up appointment scheduled on December 23, 2020 at 9:10 am.
== END 2020-12-17 22:12 | disposition left against medical advice (07) ==
PROVIDERS: Physician Assistant; Emergency Provider Physician Assistant; PCP Nurse Practitioner Family
DX: I11.0 Hypertensive heart disease with heart failure (principal); I50.9 Heart failure, unspecified; Z53.29 Procedure and treatment not carried out because of patient's decision for other reasons
CPT/HCPCS: 36415; 71275; 80053; 87635; 93005; 96374; 99285; 71045; 83735; 83880; 84484; 85025; 93010; J1940; J3490

== ENCOUNTER 2020-12-20 19:09 | Emergency (ER) | payer MEDICARE, OTHER, SELFPAY ==
[2020-12-20] VITALS (20 sets, daily range): BP systolic 138–161; BP diastolic 67–109; PULSE 59–91; RESP 20–33; TEMP 36.1; O2SAT 80–96
--- NOTE | 2020-12-20 19:30 | RT.EKG_ITS ---
APPROVED REPORT Exam: Resting ECG Reason for Exam: sob Patient Location: E HR:63 bpm ECG Measurements Heart Rate 63 AXIS NJ 302 P 75 QRSd 148 QRS 0 QT 467 T -40 QTc 480 Conclusion Sinus rhythm...normal P axis, V-rate 60- 99 Prolonged NJ interval...NJ >220, V-rate 50- 90 Nonspecific intraventricular conduction delay...QRSd >115mS, not LBBB/RBBB. Sinus. No STEMI. I have reviewed and interpreted ECG and agree with software generated interpretation.
--- NOTE | 2020-12-20 19:30 | DI.RAD_ITS ---
Exam(s) XR CHEST 2V PA LATERAL EXAM: XR CHEST 2V PA LATERAL CLINICAL HISTORY: chronic sob. TECHNIQUE: 2D digital imaging was performed. COMPARISON: CR XR CHEST 2V PA LATERAL from 11/24/2020 FINDINGS: There is cardiomegaly again noted. Mediastinum unchanged. Left lung remains clear. Some infiltrate as well as loculated pleural effusion in the right lung bas e is unchanged. Also unchanged from 11/24/2020 IMPRESSION: No improvement. If clinically indicated CT scan can be performed. DATA REPOSITORY: RADIATION DOSE DELIVERED:
[2020-12-20 19:58] LABS: Abs Immature Grans 0.01 10^3/uL (0.0-0.06); Absolute Basophil Count 0.04 10^3/uL (0.0-0.2); Absolute Eosinophil Count 0.13 10^3/uL (0.0-0.7); Absolute Lymphocyte Count 1.35 10^3/uL (1.2-3.4); Absolute Monocyte Count 0.71 10^3/uL (0.1-0.8); Absolute Neutrophil Count 4.27 10^3/uL (1.2-6.7); Basophils % 0.6; HCT 39.2 % (40.0-50.0); HGB 11.9 g/dL (13.5-17.5); Immature Grans % 0.2; Lymphocytes % 20.7; MCH 28.3 pg (27.0-33.0); MCHC 30.4 % (32.0-36.0); MCV 93.3 fL (80-95); MPV 9.1 fL (8.0-11.0); Monocytes % 10.9; Neutrophils % 65.6; Nucleated RBC 0 %; Platelet Count 291 10^3/uL (130-400); RDW 16.5 % (11.8-14.1); RDW-SD 56.4 fL; WBC 6.51 10^3/uL (4.4-10.8)
[2020-12-20 20:16] LABS: ALT 45 U/L (16-63); AST 50 U/L (15-37); Albumin 3.5 g/dL (3.4-5.0); Alkaline Phosphatase 490 U/L (46-116); Anion Gap 4.7 mmol/L (3-11); BUN 55 mg/dL (7-18); Bilirubin, Total 0.7 mg/dL (0.2-1.0); CO2 33.3 mmol/L (21.0-32.0); CREATININE 1.7 mg/dL (0.70-1.30); Calcium 8.8 mg/dL (8.5-10.1); Chloride 101 mmol/L (98-107); Estimated GFR 38.97 (mL/min/1.73m2); Glucose 89 mg/dL (74-106); Potassium 4.6 mmol/L (3.5-5.1); Sodium 139 mmol/L (136-145); Total Protein 7.6 g/dL (6.4-8.2); Troponin I < 0.05 ng/mL (<0.06)
--- NOTE | 2020-12-20 20:21 | ED.GENADUL_ITS ---
Discharge Plan Disposition Patient Disposition: HOME Condition: Stable Discharge Details Clinical Impression: Dyspnea, CHF (congestive heart failure) Primary Care Provider: Haily Alvarez ED Provider: [facility] Home Meds and New Rx's Prescriptions: Continued nitroglycerin 0.4 MG tablet, sublingual 0.4 mg Sublingual PRN PRNRF: 0 acetaminophen [Tylenol Arthritis Pain] 650 MG tablet extended release 1,300 mg PO Q6H PRN PRNQty: 0 RF: 0 aspirin [Aspir-81] 81 MG tablet,delayed release (DR/EC) 81 mg PO DAILY RF: 0 pantoprazole 40 mg Tablet,Delayed Release (Dr/Ec) 40 mg PO DAILY@0730 Qty: 30 RF: 0 allopurinol 100 MG tablet 100 mg PO DAILY Qty: 0 RF: 0 metoprolol succinate 25 MG tablet extended release 24 hr 100 mg PO DAILY Qty: 0 RF: 0 valsartan [Diovan] 40 mg tablet 20 mg PO BID Qty: 60 RF: 0 atorvastatin 40 mg tablet 80 mg PO DAILY RF: 0 furosemide 40 mg Tablet 40 mg PO BID@0830,1600 Qty: 60 RF: 0 Discharge Instructions Instructions: Heart Failure (ED), Dyspnea (ED) Additional Instructions: Your work-up today reveals rather stable CHF and dyspnea. Clinically speaking you appear better than you did the other night as you are not requiring supplemental oxygen, and you have no edema in your legs. We discussed admission at this time but you feel well and would like to be discharged home, given your oxygen levels and your blood work I do believe this to be reasonable. However please watch for new or worsening symptoms and return to the ER for any concerns. I would like you to take a double dose of your Lasix tomorrow morning to continue to draw off your fluid. I would like you to contact your primary care provider office tomorrow to discuss your to recent ER visit and ongoing symptoms. I know you are scheduled to be seen on Monday but I want you to contact them tomorrow as they may want to see you sooner and redraw your BMP and BNP to monitor the delicate balance of your kidneys and your heart. I have placed you on the care management list to help expedite this but if you do not hear from them tomorrow I cannot stress the importance of you contacting your primary care office your self Discharge Data Discharge Date/Time-TO BE ENTERED AT DEPARTURE: 12/20/20 23:15 Medical Decision Making This is an 80-year-old gentleman, multiple comorbidities, left AMA just 3 days ago after being diagnosed with a CHF exacerbation, did take an extra dose of Lasix, presenting to the ER for acute on chronic shortness of breath and simply not feeling well, would like to be sure that he is okay. Clinically his pedal edema has resolved completely from when I saw him just a few days ago, his O2 sats are 96% on room air, he is not requiring submental oxygen even with ambulation which he did with his most recent visit. Patient is speaking in full sentences, no tachypnea, he is afebrile. Patient is agreeable to initiating a cardiac work-up. Patient was witnessed ambulating to the restroom without any difficulty. Laboratory values do not reveal any obvious leukocytosis. D-dimer of 3018, electrolytes reveal sodium of 139 potassium 4.6 chloride 101 CO2 33.3 BUN 55 creatinine 1.7, GFR 38.97. Glucose of 89. Troponin less than 0.05, BNP of 17,724. BNP is very similar to 3 days ago, which is above his baseline of between 12- 13,000. Again clinically today the patient is speaking in full sentences, not requiring oxygen, he is ambulating to the restroom without any difficulty. Clinically appears better than he did 3 days ago. Given the elevated D-dimer, x-ray that revealed small loculated right pleural effusion, will obtain CTA of the chest. CTA of the chest reveals a generally stable study since recent prior imaging, CHF, moderate-severe cardiomegaly. Moderate pericardial fluid is similar. Similar chronic pulmonary artery hypertension. No convincing pulmonary artery emboli. Similar partial loculated moderate right and trace left pleural fluid. Similar compressive atelectasis in the right lung base without convincing pneumonia. Discussed work-up and CT findings with patient and son. Son admits that he looks better now than he did earlier at his house. Patient reports that he is feeling well and would prefer to go home. Clinically he appears improved when compared to just 3 days ago. I did have a very transparent conversation with the patient, his presentation, multiple comorbidities, etc. I do feel as though discharge home is reasonable if that is what he would choose to do but explained to him that I would take a double dose of his Lasix tomorrow and stressed the importance of outpatient follow-up through his primary care provider. He will need careful management of his ongoing symptoms and multiple comorbidities. I did place him on the care management list to help expedite out patient primary care follow-up. Strict discharge and return precautions were provided. This documentation was generated using [employer] dictation system, please disregard any oddities of phrase or misspellings. Medical Records Medical records reviewed: Yes I reviewed the patient's medical records. Imaging Data Radiologic Study: Imaging: CT Scan Radiologist's impression: PROCEDURE INFORMATION: Exam: CTA Chest With Contrast Exam date and time: 12/20/2020 20:35 Age: 80 years old Clinical indication: Abnormal findings; Abnormal diagnostic tests; Elevated d- dimer; Shortness of breath; Prior surgery; Surgery date: 6+ months; Surgery type: Heart artery stent; Patient HX: SOB, elevated dimer TECHNIQUE: Imaging protocol: Computed tomographic angiography of the chest with contrast. 3D rendering (Not supervised by radiologist): MIP and/or 3D reconstructed images were created by the technologist. Radiation optimization: All CT scans at this facility use at least one of these dose optimization techniques: automated exposure control; mA and/or kV adjustment per patient size (includes targeted exams where dose is matched to clinical indication); or iterative reconstruction. Contrast material: OMNIPAQUE 350; Contrast volume: 67 ml; Contrast route: INTRAVENOUS (IV); COMPARISON: CT CHEST PE CTA 12/17/2020 18:06 FINDINGS: Pulmonary arteries: Chronic pulmonary artery hypertension is similar. As on the previous study there is very heterogeneous perfusion into distal right middle and right lower lobe pulmonary artery branches with morphology characteristic of pulmonary hypertensive changes. The pattern is similar to previous imaging although the degree of heterogeneous perfusion in right lower lobe branches appears somewhat worsened. No filling defects are seen. Aorta: 41 mm ascending aortic aneurysm is stable. This study is not timed for detailed assessment of the aorta. Lungs: Similar moderate opacities predominantly in the right lung base, morphology characteristic of compressive atelectasis. PETEY SMITH Preliminary Radiology Report SPRINKLER HELPER (QA) DISCREPANCY? If there is a discrepancy between the preliminary and final interpretation, please notify [facility] via [email or web address]. If you do not have access to our QA portal, call our QA team at [phone] CONFIDENTIALITY STATEMENT This report is intended only for the use of the referring physician, and only in accordance with law, If you received this in error, call [phone] Page 2 of 2 Pleural spaces: Similar partially loculated moderate right and trace left pl eural fluid. No pneumothorax. Heart: Reflux of contrast into the IVC suggesting elevated right atrial pressures. Moderate to severe cardiomegaly is similar. Moderate pericardial fluid is similar. Lymph nodes: Mild mediastinal adenopathy is similar. Liver: Nodular liver surface is consistent with cirrhosis and is similar to prior. Question cardiogenic. Intraperitoneal space: Abdominal ascites moderate and similar. Bones/joints: Nonacute rib deformities. No acute fracture allowing for some motion. Soft tissues: Gynecomastia. IMPRESSION: 1. Generally stable study since recent prior imaging. 2. CHF. Moderate to severe cardiomegaly is similar. 3. Moderate pericardial fluid is similar. 4. Sequela of chronic pulmonary artery hypertension, similar. No convincing pulmonary artery emboli. Pattern similar to prior. 5. Similar partially loculated moderate right and trace left pleural fluid. 6. Similar compressive atelectasis in the right lung base without convincing pneumonia. 7. Additional incidental findings, similar. Radiologic Study #2: Attestation: I personally reviewed and interpreted this imaging study as follows: Imaging: X-Ray Radiologist's impression: PROCEDURE INFORMATION: Exam: XR Chest Exam date and time: 12/20/2020 7:40 PM Age: 80 years old Clinical indication: Shortness of breath; Patient HX: Chronic SOB TECHNIQUE: Imaging protocol: XR of the chest. Views: 2 views. Total images: 2 COMPARISON: CR XR PORTABLE CHEST AP 12/17/2020 3:43 PM FINDINGS: Lungs: Unremarkable. No consolidation. Pleural spaces: There is a small loculated right pleural effusion. Heart/Mediastinum: The cardiomediastinal silhouette is enlarged but unchanged. Bones/joints: Unremarkable. IMPRESSION: 1. Small loculated right pleural effusion. 2. Stable cardiomegaly. Lab Data Lab results reviewed: Yes I reviewed the patient's lab results. Labs: Laboratory Tests Range/Units 12/20/20 12/20/20 12/20/20 16:49 16:49 19:49 WBC (4.4-10.8) 10^3/uL RBC (4.36-5.78) 10^6/uL Hgb (13.5-17.5) g/dL Hct (40.0-50.0) % MCV (80-95) fL MCH (27.0-33.0) pg MCHC (32.0-36.0) % RDW (11.8-14.1) % Plt Count (130-400) 10^3/uL MPV (8.0-11.0) fL Immature Gran % Neutrophils % Lymphocytes % Monocytes % Eosinophils % Basophils % Nucleated RBC % % Absolute Neutrophils (1.2-6.7) 10^3/uL Absolute Lymphocytes (1.2-3.4) 10^3/uL Absolute Monocytes (0.1-0.8) 10^3/uL Absolute Eosinophils (0.0-0.7) 10^3/uL Absolute Basophils (0.0-0.2) 10^3/uL D-Dimer (<500) ng/mlFEU 3018 H Sodium (136-145) mmol/L 139 Potassium (3.5-5.1) mmol/L 4.6 Chloride (98-107) mmol/L 101 Carbon Dioxide (21.0-32.0) mmol/L 33.3 H Anion Gap (3-11) mmol/L 4.7 BUN (7-18) mg/dL 55 H Creatinine (0.70-1.30) mg/dL 1.7 H Estimated GFR/1.73 m2 (mL/min/1.73m2) 38.97 Glucose (74-106) mg/dL 89 Calcium (8.5-10.1) mg/dL 8.8 Magnesium (1.8-2.4) mg/dL 2.3 Total Bilirubin (0.2-1.0) mg/dL 0.7 AST (15-37) U/L 50 H ALT (16-63) U/L 45 Alkaline Phosphatase (46-116) U/L 490 H Troponin I (<0.06) ng/mL < 0.05 NT-Pro-B Natriuret Pep (<300) pg/mL 52441 H Total Protein (6.4-8.2) g/dL 7.6 Albumin (3.4-5.0) g/dL 3.5 COVID-19 Source SARS-CoV-2 (PCR) (Negative) Range/Units 12/20/20 12/20/20 19:49 21:25 WBC (4.4-10.8) 10^3/uL 6.51 RBC (4.36-5.78) 10^6/uL 4.20 L Hgb (13.5-17.5) g/dL 11.9 L Hct (40.0-50.0) % 39.2 L MCV (80-95) fL 93.3 MCH (27.0-33.0) pg 28.3 MCHC (32.0-36.0) % 30.4 L RDW (11.8-14.1) % 16.5 H Plt Count (130-400) 10^3/uL 291 MPV (8.0-11.0) fL 9.1 Immature Gran % 0.2 Neutrophils % 65.6 Lymphocytes % 20.7 Monocytes % 10.9 Eosinophils % 2.0 Basophils % 0.6 Nucleated RBC % % 0 Absolute Neutrophils (1.2-6.7) 10^3/uL 4.27 Absolute Lymphocytes (1.2-3.4) 10^3/uL 1.35 Absolute Monocytes (0.1-0.8) 10^3/uL 0.71 Absolute Eosinophils (0.0-0.7) 10^3/uL 0.13 Absolute Basophils (0.0-0.2) 10^3/uL 0.04 D-Dimer (<500) ng/mlFEU Sodium (136-145) mmol/L Potassium (3.5-5.1) mmol/L Chloride (98-107) mmol/L Carbon Dioxide (21.0-32.0) mmol/L Anion Gap (3-11) mmol/L BUN (7-18) mg/dL Creatinine (0.70-1.30) mg/dL Estimated GFR/1.73 m2 (mL/min/1.73m2) Glucose (74-106) mg/dL Calcium (8.5-10.1) mg/dL Magnesium (1.8-2.4) mg/dL Total Bilirubin (0.2-1.0) mg/dL AST (15-37) U/L ALT (16-63) U/L Alkaline Phosphatase (46-116) U/L Troponin I (<0.06) ng/mL NT-Pro-B Natriuret Pep (<300) pg/mL Total Protein (6.4-8.2) g/dL Albumin (3.4-5.0) g/dL COVID-19 Source Nasal/Nares SARS-CoV-2 (PCR) (Negative) Negative ECG Data Attestation: I personally reviewed and interpreted this ECG (s) as follows: Interpretation: Please see official report by Dr. Remy. Sinus rhythm, ventricular rate 63. No STEMI. HPI General Mode of arrival: ambulatory . Date/Time Provider Initiated Documentation: 12/20/20 19:09 . Limitations to Documentation: no limitations . Information obtained by: patient and family . HPI Narrative: This is an 80-year-old gentleman, past medical history that includes CAD, CHF, chronic renal disease, DNI, DNR, hypertension, ischemic cardiomyopathy, palliative care patient, who left the ER on 12-17 AMA with a CHF exacerbation presents for acute on chronic shortness of breath for years, generally not feeling well, reported feeling lightheaded earlier today, and states he is agreeable to admission if necessary tonight. Patient left ER AMA on 12-18 but did double his dose of Lasix the following day, he did not subsequently follow-up with his primary care provider. He denies recent illness or trauma. Denies headache, chest pain, back pain abdominal pain, nausea, vomiting, change in bowel or bladder function, pain or swelling in his legs. He reports swelling in his legs is actually better. He does not use supplemental oxygen. I was able to speak with the patient's son who was present and he states that he personally saw the patient today and thought that his breathing might be slightly worse than his typical baseline although now he does not notice the patient having difficulty breathing. Related Data Home Medications Medication Instructions Recorded Confirmed nitroglycerin 0.4 mg SUBLINGUAL PRN PRN 12/31/12 12/20/20 acetaminophen [Tylenol Arthritis 1,300 mg PO Q6H PRN PRN #0 01/03/13 12/20/20 Pain] aspirin [Aspir-81] 81 mg PO DAILY 10/28/15 12/20/20 allopurinol 100 mg PO DAILY #0 tab 04/16/20 12/20/20 metoprolol succinate 100 mg PO DAILY #0 tab 04/16/20 12/20/20 pantoprazole 40 mg PO DAILY@0730 #30 tab 04/16/20 12/17/20 atorvastatin 80 mg PO DAILY 05/05/20 12/20/20 furosemide 40 mg PO BID@0830,1600 #60 tab 05/08/20 12/20/20 valsartan [Diovan] 20 mg PO BID #60 tab 10/17/20 12/20/20 Previous Rx's Medication Instructions Recorded acetaminophen [Tylenol Arthritis 1,300 mg PO Q6H PRN PRN #0 01/03/13 Pain] allopurinol 100 mg PO DAILY #0 tab 04/16/20 metoprolol succinate 100 mg PO DAILY #0 tab 04/16/20 pantoprazole 40 mg PO DAILY@0730 #30 tab 04/16/20 furosemide 40 mg PO BID@0830,1600 #60 tab 05/08/20 valsartan [Diovan] 20 mg PO BID #60 tab 10/17/20 Allergies Allergy/AdvReac Type Severity Reaction Status Date / Time amlodipine AdvReac Intermediate Swelling/Ed Unverified 12/17/20 14:56 lottie enalapril maleate AdvReac Intermediate cough Unverified 12/17/20 14:56 [From Vasotec] enalaprilat dihydrate AdvReac Intermediate cough Unverified 12/17/20 14:56 [From Vasotec] General Stated Complaint: GenMedical RUPESH: 3 Review of Systems Constitutional Constitutional: Denies fatigue, Denies fever(s), Denies headache(s) and Reports weakness ENT Ears, Nose, Mouth, and Throat: Denies headache(s) and Denies neck pain Cardiovascular Cardiovascular: Denies chest pain and Reports dyspnea Respiratory Respiratory: Denies cough and Reports dyspnea Gastrointestinal Gastrointestinal: Denies abdominal pain, Denies nausea and Denies vomiting Genitourinary Genitourinary: Denies dysuria Musculoskeletal Musculoskeletal: Denies back pain, Denies neck pain, Denies numbness and Denies tingling Integumentary/Breasts Skin/Breast: Denies rash Neurologic Neurologic: Denies headache(s), Denies numbness, Denies tingling and Reports weakness Comments: Generalized Endocrine Endocrine: Denies fatigue [facility] Medical History Bladder neck contracture CAD (coronary artery disease) CHF (congestive heart failure) EF 50% by echo in 03/19 Chronic kidney disease DNI (do not intubate) DNR (do not resuscitate) Hypercholesterolemia Hypertension Ischemic cardiomyopathy Palliative care patient POLST (Physician Orders for Life-Sustaining Treatment) Prostate cancer Surgical History History of heart artery stent S/P prostatectomy Status post THR (total hip replacement) Family History Son No problems noted. Social History Smoking/Tobacco Use Status: Never Smoking risk assessment performed?: Yes Alcohol Intake: former Drug use: Never Substance use type: does not use Caregiver/Support person: Yes Communication Needs: Hard of Hearing and Corrective Lenses Education Level: high school Do you need help understanding health information?: Always Current gender identity: male How often do you talk on the phone with friends or family?: three or more times per week How often do you get together with friends or relatives?: three or more times per week Panel score (0-1 are the most socially isolated patients): 1 What type of physical activity do you participate in: walking Duration: 15-30 minutes/day Special deanna needs: No Seatbelt use: always Do you feel safe at home: Yes Do you feel safe in your relationship?: Yes Additional Social history: Son Berto is his main person who helps care for him. He is a , but was posted in [place] during the [employer] era. He has insurance with both medicare and [employer]. Exam Const General: cooperative, healthy appearing, comfortable and no acute distress Orientation: alert, awake and oriented x3 HENMT Head: normal to inspection, normocephalic and atraumatic Mouth: oral mucosae normal and moist mucous membranes Eyes General: appearance normal, both eyes and all related structures Conjunctivae: conjunctivae normal Neck Neck: normal visual inspection, full ROM, trachea midline, supple and nontender Resp Effort & Inspection: normal respiratory effort and able to speak in complete sentences Auscultation: diminished lung sounds bilaterally in the lower lung spencer (Minimally) Cardio Rate: regular rate Rhythm: regular rhythm GI Palpation: soft, not firm, no guarding, no pulsatile masses and nontender Back/Spine/Pelvis Back: no CVA tenderness and No back tenderness Skin General skin exam: no rashes or lesions noted Neuro General: patient alert, patient awake, patient oriented x3, moves all extremities and no focal motor deficits Cognition: normal cognition Speech: speech normal Gait: normal gait Motor: muscle tone normal throughout Sensory Exam: no sensory deficits noted Extrem General: normal to inspection, full ROM, capillary refill normal, no pedal edema and no calf tenderness Psych Appearance: grossly normal Mental Status: mental status grossly normal Course Vital Signs Vital signs: Vital Signs Temperature 36.1 C L 12/20/20 19:14 Pulse 62 12/20/20 19:14 Respiratory Rate 20 12/20/20 19:14 Blood Pressure 161/109 H 12/20/20 19:14 Pulse Oximetry 96 12/20/20 19:14 Temperature 36.1 C L 12/20/20 19:14 Temperature Source Temporal Artery Scan 12/20/20 19:14 Pulse 62 12/20/20 19:14 Respiratory Rate 20 12/20/20 19:22 Respiratory Effort Non-Labored 12/20/20 19:22 Respiratory Depth Normal 12/20/20 19:22 Respiratory Pattern Normal 12/20/20 19:22 Blood Pressure 161/109 H 12/20/20 19:14 Blood Pressure Position Sitting 12/20/20 19:14 Pulse Oximetry 96 12/20/20 19:14 Oxygen Delivery Method Room Air 12/20/20 19:14 Oxygen Flow Rate 0 12/20/20 19:14 Pain Level 0 12/20/20 19:14 Lab/Test Results Lab/Test Results: Laboratory Tests Range/Units 12/20/20 12/20/20 19:49 19:49 WBC (4.4-10.8) 10^3/uL 6.51 RBC (4.36-5.78) 10^6/uL 4.20 L Hgb (13.5-17.5) g/dL 11.9 L Hct (40.0-50.0) % 39.2 L MCV (80-95) fL 93.3 MCH (27.0-33.0) pg 28.3 MCHC (32.0-36.0) % 30.4 L RDW (11.8-14.1) % 16.5 H Plt Count (130-400) 10^3/uL 291 MPV (8.0-11.0) fL 9.1 Immature Gran % 0.2 Neutrophils % 65.6 Lymphocytes % 20.7 Monocytes % 10.9 Eosinophils % 2.0 Basophils % 0.6 Nucleated RBC % % 0 Absolute Neutrophils (1.2-6.7) 10^3/uL 4.27 Absolute Lymphocytes (1.2-3.4) 10^3/uL 1.35 Absolute Monocytes (0.1-0.8) 10^3/uL 0.71 Absolute Eosinophils (0.0-0.7) 10^3/uL 0.13 Absolute Basophils (0.0-0.2) 10^3/uL 0.04 Sodium (136-145) mmol/L 139 Potassium (3.5-5.1) mmol/L 4.6 Chloride (98-107) mmol/L 101 Carbon Dioxide (21.0-32.0) mmol/L 33.3 H Anion Gap (3-11) mmol/L 4.7 BUN (7-18) mg/dL 55 H Creatinine (0.70-1.30) mg/dL 1.7 H Estimated GFR/1.73 m2 (mL/min/1.73m2) 38.97 Glucose (74-106) mg/dL 89 Calcium (8.5-10.1) mg/dL 8.8 Total Bilirubin (0.2-1.0) mg/dL 0.7 AST (15-37) U/L 50 H ALT (16-63) U/L 45 Alkaline Phosphatase (46-116) U/L 490 H Troponin I (<0.06) ng/mL < 0.05 Total Protein (6.4-8.2) g/dL 7.6 Albumin (3.4-5.0) g/dL 3.5
[2020-12-20 20:22] LABS: Magnesium 2.3 mg/dL (1.8-2.4); NT-proBNP 17724 pg/mL (<300)
--- NOTE | 2020-12-20 20:30 | DI.CT_ITS ---
Exam(s) CT CHEST PE CTA EXAM: CT CHEST PE CTA CLINICAL HISTORY: sob, elevated dimer. TECHNIQUE: Imaging Protocol: CT angiography of the chest was performed using pulmonary embolus saundra col. Multi planar reconstructions were performed. CONTRAST MATERIAL: Intravenous: Omnipaque 350 Contrast volume: 67 cc COMPARISON: CT CT CHEST PE CTA from 12/17/2020 CR,XR XR CHEST 2V PA LATERAL from 12/20/2020 FINDINGS: CHEST: PULMONARY ARTERIES: No obvious acute intraluminal filling defects to suggest pulmonary emboli. Appea ariel of the pulmonary arteries reflects chronic pulmonary artery hypertension. LUNGS: Moderate-large loculated right pleural effusion is again noted, unchanged from 12/17/2020 and there is again noted volume loss-atelectasis in the subjacent right lower lobe basal pulmonary segmen ts. Mild adjacent infiltrate. There are no new findings in the opposite-left lung. Also no left pl eural effusion MEDIASTINUM: There is no hilar nor mediastinal adenopathy. Visualized thyroid unremarkable. CARDIAC: Cardiomegaly again noted. No prominent pericardial effusion.Dilated ascending thoracic aort a exhibiting diameter 4 cm. There is no significant shift of the interventricular septum. However, there is some reflux of contrast into the intrahepatic IVC and patent veins which indicates an eleme nt of right heart failure. PARTIALLY VISUALIZED UPPERMOST ABDOMEN: Mild ascites. No adrenal masses. Cirrhotic appearing liver. Multiple cysts in both kidneys only partially included OSSEOUS: No significant osseous lesions.. IMPRESSION: 1. No evidence of obvious acute pulmonary emboli..Right lower lobe volume loss and moderate sized loc ulated ipsilateral right pleural effusion again noted. No proven compared to 12/17/2020. 2. Cardiomegaly. Suggestion of right heart failure. Mildly elevated ascending thoracic aorta. 3. Abdominal findings as above. RADIATION DOSE DELIVERED: 409.17mGy.cm Total DLP DATA REPOSITORY: All CT scans at this facility are submitted to the National Radiology Data Registry (NRDR) Dose Index Registry (DIR) with the [employer] (ACR). RADIATION OPTIMIZATION: All CT scans at this facility use at least one of these dose optimization te chniques: automated exposure control; mA and/or kV adjustment per patient size (includes targeted exa ms where dose is matched to clinical indication); or iterative reconstruction.
[2020-12-20 20:32] LABS: D-Dimer 3018 ng/mlFEU (<500)
--- NOTE | 2020-12-20 21:23 | DI.VRAD_ITS ---
PROCEDURE INFORMATION: Exam: XR Chest Exam date and time: 12/20/2020 7:40 PM Age: 80 years old Clinical indication: Shortness of breath; Patient HX: Chronic SOB TECHNIQUE: Imaging protocol: XR of the chest. Views: 2 views. Total images: 2 COMPARISON: CR XR PORTABLE CHEST AP 12/17/2020 3:43 PM FINDINGS: Lungs: Unremarkable. No consolidation. Pleural spaces: There is a small loculated right pleural effusion. Heart/Mediastinum: The cardiomediastinal silhouette is enlarged but unchanged. Bones/joints: Unremarkable. IMPRESSION: 1. Small loculated right pleural effusion. 2. Stable cardiomegaly. Dictated and Authenticated by: Stanley Jackson MD. Ordering:LAY Longoria MD
[2020-12-20] MEDS: Omnipaque 350 MG/ML 100 ML BTL IJ (21:29)
[2020-12-20 21:30] LABS: Source Nasal/Nares
[2020-12-20] MEDS: Normal Saline - Diluent 50 ML VIAL IV (21:30)
[2020-12-20] MEDS: Normal Saline 1,000 ML 125 ML IV (22:07)
[2020-12-20 22:22] LABS: COVID-19 PCR Negative (Negative)
--- NOTE | 2020-12-20 22:40 | DI.VRAD_ITS ---
PROCEDURE INFORMATION: Exam: CTA Chest With Contrast Exam date and time: 12/20/2020 20:35 Age: 80 years old Clinical indication: Abnormal findings; Abnormal diagnostic tests; Elevated d-dimer; Shortness of breath; Prior surgery; Surgery date: 6+ months; Surgery type: Heart artery stent; Patient HX: SOB, elevated dimer TECHNIQUE: Imaging protocol: Computed tomographic angiography of the chest with contrast. 3D rendering (Not supervised by radiologist): MIP and/or 3D reconstructed images were created by the technologist. Radiation optimization: All CT scans at this facility use at least one of these dose optimization techniques: automated exposure control; mA and/or kV adjustment per patient size (includes targeted exams where dose is matched to clinical indication); or iterative reconstruction. Contrast material: OMNIPAQUE 350; Contrast volume: 67 ml; Contrast route: INTRAVENOUS (IV); COMPARISON: CT CHEST PE CTA 12/17/2020 18:06 FINDINGS: Pulmonary arteries: Chronic pulmonary artery hypertension is similar. As on the previous study there is very heterogeneous perfusion into distal right middle and right lower lobe pulmonary artery branches with morphology characteristic of pulmonary hypertensive changes. The pattern is similar to previous imaging although the degree of heterogeneous perfusion in right lower lobe branches appears somewhat worsened. No filling defects are seen. Aorta: 41 mm ascending aortic aneurysm is stable. This study is not timed for detailed assessment of the aorta. Lungs: Similar moderate opacities predominantly in the right lung base, morphology characteristic of compressive atelectasis. Pleural spaces: Similar partially loculated moderate right and trace left pleural fluid. No pneumothorax. Heart: Reflux of contrast into the IVC suggesting elevated right atrial pressures. Moderate to severe cardiomegaly is similar. Moderate pericardial fluid is similar. Lymph nodes: Mild mediastinal adenopathy is similar. Liver: Nodular liver surface is consistent with cirrhosis and is similar to prior. Question cardiogenic. Intraperitoneal space: Abdominal ascites moderate and similar. Bones/joints: Nonacute rib deformities. No acute fracture allowing for some motion. Soft tissues: Gynecomastia. IMPRESSION: 1. Generally stable study since recent prior imaging. 2. CHF. Moderate to severe cardiomegaly is similar. 3. Moderate pericardial fluid is similar. 4. Sequela of chronic pulmonary artery hypertension, similar. No convincing pulmonary artery emboli. Pattern similar to prior. 5. Similar partially loculated moderate right and trace left pleural fluid. 6. Similar compressive atelectasis in the right lung base without convincing pneumonia. 7. Additional incidental findings, similar. Dictated and Authenticated by: Jacque Silva MD. Ordering:LAY Longoria MD
--- NOTE | 2020-12-20 22:44 | NUR.NOTE ---
Referral to Care Management to check in with patient 12/21/20 to see how he's doing, patient has chf. Seen in ED 12/17/20 and left ama, returned 12/20/20...doing better but wanted to get checked out.Nursing Note:
== END 2020-12-20 23:15 | disposition home or self-care (01) ==
PROVIDERS: Emergency Provider Physician Assistant; PCP Nurse Practitioner Family
DX: I13.0 Hypertensive heart and chronic kidney disease with heart failure and stage 1 through stage 4 chronic kidney disease, or unspecified chronic kidney disease (principal); I50.9 Heart failure, unspecified; N18.9 Chronic kidney disease, unspecified; R06.00 Dyspnea, unspecified; R79.1 Abnormal coagulation profile
CPT/HCPCS: 36415; 71275; 80053; 87635; 93005; 99285; 71046; 83735; 83880; 84484; 85025; 85379; 93010; 99284; J3490

== ENCOUNTER 2021-01-11 18:41 | Outpatient (REF) | payer MEDICARE, OTHER, SELFPAY ==
[2021-01-13 12:52] LABS: COVID-19 RT-PCR UVMMC Result Negative (Negative)
== END 2021-01-11 18:42 | disposition home or self-care (01) ==
LOC: NCHCN 18:41
PROVIDERS: PCP Nurse Practitioner Family; Visit Provider Family Medicine
DX: Z20.822 Contact with and (suspected) exposure to COVID-19 (principal); J06.9 Acute upper respiratory infection, unspecified
CPT/HCPCS: U0003

== ENCOUNTER 2021-01-14 14:29 | Inpatient (IN) | payer MEDICARE, OTHER, SELFPAY ==
[2021-01-14] VITALS (34 sets, daily range): BP systolic 131–174; BP diastolic 63–126; PULSE 0–113; RESP 13–32; TEMP 36–37.1; O2SAT 85–99
--- NOTE | 2021-01-14 16:00 | DI.RAD_ITS ---
Exam(s) XR PORTABLE CHEST AP EXAM: XR PORTABLE CHEST AP CLINICAL HISTORY: sob/cough TECHNIQUE: 2D digital imaging was performed. COMPARISON: CT CT CHEST PE CTA from 12/20/2020 CR,XR XR CHEST 2V PA LATERAL from 12/20/2020 FINDINGS: The heart is enlarged and the aorta is tortuous, unchanged. There has been mild interval increase i n size of previously noted right loculated pleural effusion. No new abnormalities are seen. IMPRESSION: Mild interval increase in size of right pleural effusion. DATA REPOSITORY: RADIATION DOSE DELIVERED:
--- NOTE | 2021-01-14 16:15 | ED.GENADUL_ITS ---
Discharge Plan Disposition Patient Disposition: [facility] INPATIENT Condition: Stable Discharge Details Chief Complaint: SOB Clinical Impression: Acute exacerbation of CHF (congestive heart failure) Primary Care Provider: Haily Alvarez ED Provider: [facility] Home Meds and New Rx's Prescriptions: No Action nitroglycerin 0.4 MG tablet, sublingual 0.4 mg Sublingual PRN PRNRF: 0 acetaminophen [Tylenol Arthritis Pain] 650 MG tablet extended release 1,300 mg PO Q6H PRN PRNQty: 0 RF: 0 aspirin [Aspir-81] 81 MG tablet,delayed release (DR/EC) 81 mg PO DAILY RF: 0 pantoprazole 40 mg Tablet,Delayed Release (Dr/Ec) 40 mg PO DAILY@0730 Qty: 30 RF: 0 allopurinol 100 MG tablet 100 mg PO DAILY Qty: 0 RF: 0 metoprolol succinate 25 MG tablet extended release 24 hr 100 mg PO DAILY Qty: 0 RF: 0 valsartan [Diovan] 40 mg tablet 20 mg PO BID Qty: 60 RF: 0 atorvastatin 40 mg tablet 80 mg PO DAILY RF: 0 furosemide 40 mg Tablet 40 mg PO BID@0830,1600 Qty: 60 RF: 0 Medical Decision Making 80-year-old gentleman presents with family presenting for acute on chronic shortness of breath, runny nose, slightly productive cough. He had a negative Covid test yesterday. Contacted his primary care provider today because his home O2 sats were in the mid to high 80s, directed to come to the ER. Patient reports that he is compliant with his medications and he recently increased his p.o. Lasix. Family states that he actually had a mechanical slip and fall a couple of days ago injuring his back, patient downplays this and states that the back injury is really not severe, only mild discomfort, denies any other injury from the fall. He denies any headache, fever, visual changes, neck pain, chest pain, abdominal pain, nausea or vomiting, increased pain or swelling in his legs. Patient is satting 89% on room air at rest, sats in the mid 90s with 1 L nasal cannula. Given his extensive past medical history, plan is to obtain IV access, cardiac work-up including a single troponin and EKG. Will obtain a Covid swab as well. He is afebrile, appears well, low suspicion for pneumonia. Laboratory values reveal a white blood cell count of 8.76 hemoglobin 12.4 hematocrit 40.6 platelet count 280. Sodium 143 potassium 4.4 BUN 43 creatinine 1.2 with a GFR of 58.26. Glucose 84, calcium 9.2 magnesium 2.4, troponin less than 0.05. BNP is 25,103. Albumin 3.5 No evidence of leukocytosis. No clear indication to initiate antibiotic therapy BNP is elevated at 25,000, most recent visit was 17,000. Believe evaluation is likely secondary to CHF exacerbation, acute on chronic. Will give 80 of IV Lasix. Patient was able to eat dinner without difficulty. He was witnessed ambulating to the restroom steadily however his O2 sat once again dropped high 80s, and he was once again placed on 1 L nasal cannula. We will discussed the case with our hospitalist team to discuss admission for CHF. Patient is agreeable to admission. I discussed the case with Dr. Moreno who is agreeable to admission and will place admitting orders. Medical Records Medical records reviewed: Yes I reviewed the patient's medical records. Imaging Data Radiologic Study: Attestation: I personally reviewed and interpreted this imaging study as follows: Imaging: X-Ray Radiologist's impression: PROCEDURE INFORMATION: Exam: XR Chest Exam date and time: 01/14/2021 4:14 PM Age: 80 years old Clinical indication: Cough and other: SOB TECHNIQUE: Imaging protocol: XR of the chest. Views: 1 view. COMPARISON: CR XR CHEST 2V PA LATERAL 12/20/2020 8:14 PM FINDINGS: Lungs: Patchy opacification in the right base is seen. It could represent consolidation and/or atelectasis. Pleural spaces: There is of small to moderate right pleural effusion again seen. Heart/Mediastinum: Unremarkable. No cardiomegaly. Bones/joints: Unremarkable. IMPRESSION: Persistent right basilar effusion and associated collapse/consolidation Lab Data Lab results reviewed: Yes I reviewed the patient's lab results. Labs: Laboratory Tests Range/Units 01/14/21 01/14/21 01/14/21 17:00 17:10 17:10 WBC (4.4-10.8) 10^3/uL RBC (4.36-5.78) 10^6/uL Hgb (13.5-17.5) g/dL Hct (40.0-50.0) % MCV (80-95) fL MCH (27.0-33.0) pg MCHC (32.0-36.0) % RDW (11.8-14.1) % Plt Count (130-400) 10^3/uL MPV (8.0-11.0) fL Immature Gran % Neutrophils % Lymphocytes % Monocytes % Eosinophils % Basophils % Nucleated RBC % % Absolute Neutrophils (1.2-6.7) 10^3/uL Absolute Lymphocytes (1.2-3.4) 10^3/uL Absolute Monocytes (0.1-0.8) 10^3/uL Absolute Eosinophils (0.0-0.7) 10^3/uL Absolute Basophils (0.0-0.2) 10^3/uL Sodium (136-145) mmol/L 143 Potassium (3.5-5.1) mmol/L 4.4 Chloride (98-107) mmol/L 103 Carbon Dioxide (21.0-32.0) mmol/L 34.1 H Anion Gap (3-11) mmol/L 5.9 BUN (7-18) mg/dL 43 H Creatinine (0.70-1.30) mg/dL 1.2 Estimated GFR/1.73 m2 (mL/min/1.73m2) 58.26 Glucose (74-106) mg/dL 84 Calcium (8.5-10.1) mg/dL 9.2 Magnesium (1.8-2.4) mg/dL 2.4 Total Bilirubin (0.2-1.0) mg/dL 1.1 H AST (15-37) U/L 50 H ALT (16-63) U/L 32 Alkaline Phosphatase (46-116) U/L 465 H Troponin I (<0.06) ng/mL < 0.05 NT-Pro-B Natriuret Pep (<300) pg/mL 46584 H Total Protein (6.4-8.2) g/dL 7.7 Albumin (3.4-5.0) g/dL 3.5 COVID-19 Source Nasal/Nares SARS-CoV-2 (PCR) (Negative) Negative Range/Units 01/14/21 17:10 WBC (4.4-10.8) 10^3/uL 8.76 RBC (4.36-5.78) 10^6/uL 4.34 L Hgb (13.5-17.5) g/dL 12.4 L Hct (40.0-50.0) % 40.6 MCV (80-95) fL 93.5 MCH (27.0-33.0) pg 28.6 MCHC (32.0-36.0) % 30.5 L RDW (11.8-14.1) % 16.6 H Plt Count (130-400) 10^3/uL 280 MPV (8.0-11.0) fL 9.5 Immature Gran % 0.3 Neutrophils % 75.0 Lymphocytes % 14.6 Monocytes % 8.4 Eosinophils % 1.0 Basophils % 0.7 Nucleated RBC % % 0 Absolute Neutrophils (1.2-6.7) 10^3/uL 6.56 Absolute Lymphocytes (1.2-3.4) 10^3/uL 1.28 Absolute Monocytes (0.1-0.8) 10^3/uL 0.74 Absolute Eosinophils (0.0-0.7) 10^3/uL 0.09 Absolute Basophils (0.0-0.2) 10^3/uL 0.06 Sodium (136-145) mmol/L Potassium (3.5-5.1) mmol/L Chloride (98-107) mmol/L Carbon Dioxide (21.0-32.0) mmol/L Anion Gap (3-11) mmol/L BUN (7-18) mg/dL Creatinine (0.70-1.30) mg/dL Estimated GFR/1.73 m2 (mL/min/1.73m2) Glucose (74-106) mg/dL Calcium (8.5-10.1) mg/dL Magnesium (1.8-2.4) mg/dL Total Bilirubin (0.2-1.0) mg/dL AST (15-37) U/L ALT (16-63) U/L Alkaline Phosphatase (46-116) U/L Troponin I (<0.06) ng/mL NT-Pro-B Natriuret Pep (<300) pg/mL Total Protein (6.4-8.2) g/dL Albumin (3.4-5.0) g/dL COVID-19 Source SARS-CoV-2 (PCR) (Negative) ECG Data Attestation: I personally reviewed and interpreted this ECG (s) as follows: Interpretation: Please see official report by Dr. Mahoney. Sinus or ectopic atrial rhythm, ventricular rate of 78. PVC. Prolonged MI, no ST elevation HPI General Mode of arrival: ambulatory . Date/Time Provider Initiated Documentation: 01/14/21 16:00 . Limitations to Documentation: no limitations . Information obtained by: patient and family . History of Present Illness 80 year old M presents to the emergency department with the chief complaint of cough and sob, described as moderate, with intensity rated at 4. Quality is described as other (sob), and is localized to the chest. Patient reports no radiation. Patient started experiencing this week(s) (1) and it has been constant (slightly worsening). No relieving factors improve symptom(s), No exacerbating factors reported . Patient notes cough and shortness of breath; denies chest pain, fever/chills and headaches. Patient did receive the following treatments prior to arrival, other (taking all meds as directed) Related Data Home Medications Medication Instructions Recorded Confirmed nitroglycerin 0.4 mg SUBLINGUAL PRN PRN 12/31/12 01/14/21 acetaminophen [Tylenol Arthritis 1,300 mg PO Q6H PRN PRN #0 01/03/13 01/14/21 Pain] aspirin [Aspir-81] 81 mg PO DAILY 10/28/15 01/14/21 allopurinol 100 mg PO DAILY #0 tab 04/16/20 01/14/21 metoprolol succinate 100 mg PO DAILY #0 tab 04/16/20 01/14/21 pantoprazole 40 mg PO DAILY@0730 #30 tab 04/16/20 01/14/21 atorvastatin 80 mg PO DAILY 05/05/20 01/14/21 furosemide 40 mg PO BID@0830,1600 #60 tab 05/08/20 01/14/21 valsartan [Diovan] 20 mg PO BID #60 tab 10/17/20 01/14/21 Previous Rx's Medication Instructions Recorded acetaminophen [Tylenol Arthritis 1,300 mg PO Q6H PRN PRN #0 01/03/13 Pain] allopurinol 100 mg PO DAILY #0 tab 04/16/20 metoprolol succinate 100 mg PO DAILY #0 tab 04/16/20 pantoprazole 40 mg PO DAILY@0730 #30 tab 04/16/20 furosemide 40 mg PO BID@0830,1600 #60 tab 05/08/20 valsartan [Diovan] 20 mg PO BID #60 tab 10/17/20 Allergies Allergy/AdvReac Type Severity Reaction Status Date / Time amlodipine AdvReac Intermediate Swelling/Ed Unverified 01/14/21 15:05 lottie enalapril maleate AdvReac Intermediate cough Unverified 01/14/21 15:05 [From Vasotec] enalaprilat dihydrate AdvReac Intermediate cough Unverified 01/14/21 15:05 [From Vasotec] General Stated Complaint: SOB RUPESH: 3 Review of Systems Constitutional Constitutional: Denies fatigue, Denies fever(s), Denies headache(s) and Denies weakness ENT Ears, Nose, Mouth, and Throat: Denies headache(s) and Denies neck pain Cardiovascular Cardiovascular: Denies chest pain and Reports dyspnea Respiratory Respiratory: Reports cough and Reports dyspnea Gastrointestinal Gastrointestinal: Denies abdominal pain, Denies nausea and Denies vomiting Musculoskeletal Musculoskeletal: Denies arthralgias and Denies neck pain Integumentary/Breasts Skin/Breast: Denies rash Neurologic Neurologic: Denies headache(s) and Denies weakness Endocrine Endocrine: Denies fatigue [facility] [place] Active Problem List CHF (congestive heart failure) (Chronic) Dyspnea (Acute) CHF (congestive heart failure) (Chronic) Pleural effusion (Acute) Ascites (Acute) 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) (Acute) Anasarca (Acute) Chronic shortness of breath (Acute) Dizziness (Acute) Dizziness (Acute) Congestive heart failure (Chronic) Contusion of hand, left (Acute) Contusion of hip, left (Acute) Mild dehydration (Acute) Fracture of triquetral bone of left wrist (Acute) Carotid stenosis, right (Acute) Acute exacerbation of CHF (congestive heart failure) (Acute) Dysphasia (Acute) Internal carotid artery occlusion (Acute) Acute kidney injury superimposed on chronic kidney disease (Acute) Dysarthria (Acute) Abdominal pain (Acute) Shortness of breath (Acute) Dizziness (Acute) Pleural effusion on right (Acute) Palpitations (Acute) Pleural effusion, right (Acute) Calcific tendinitis of right shoulder (Acute) Cervical spinal stenosis (Acute) Palliative care patient (Chronic) DNI (do not intubate) (Acute) DNR (do not resuscitate) (Acute) POLST (Physician Orders for Life-Sustaining Treatment) (Acute) Hypoxia (Chronic) Right shoulder pain (Acute) At risk for aspiration (Acute) Weakness generalized (Acute) Acute hypernatremia (Acute) Mental status, decreased (Acute) Discharge planning issues (Acute) DVT prophylaxis (Acute) Bladder neck contracture (Acute) Prostate cancer (Chronic) Chronic kidney disease (Chronic) Hypercholesterolemia (Chronic) Hypertension (Chronic) CAD (coronary artery disease) (Chronic) Ischemic cardiomyopathy (Chronic) Heart failure, chronic, with acute decompensation (Acute 12/31/12) Bladder outlet obstruction (Chronic) Alcohol dependence (Chronic) Medical History CHF (congestive heart failure) EF 50% by echo in 03/19 Surgical History History of heart artery stent S/P prostatectomy Status post THR (total hip replacement) Family History Son No problems noted. Social History Smoking/Tobacco Use Status: Never Smoking risk assessment performed?: Yes Alcohol Intake: former Drug use: Never Substance use type: does not use Caregiver/Support person: Yes Communication Needs: Hard of Hearing and Corrective Lenses Education Level: high school Do you need help understanding health information?: Always Current gender identity: male How often do you talk on the phone with friends or family?: three or more times per week How often do you get together with friends or relatives?: three or more times per week Panel score (0-1 are the most socially isolated patients): 1 What type of physical activity do you participate in: walking Duration: 15-30 minutes/day Special deanna needs: No Seatbelt use: always Do you feel safe at home: Yes Do you feel safe in your relationship?: Yes Additional Social history: Son Berto is his main person who helps care for him. He is a , but was posted in [place] during the [employer] era. He has insurance with both medicare and [employer]. Exam Const General: cooperative, healthy appearing, comfortable and no acute distress Orientation: alert and awake HENDC Head: normal to inspection, normocephalic and atraumatic Face and sinus: normal facial exam Mouth: moist mucous membranes Eyes General: appearance normal, both eyes and all related structures Conjunctivae: conjunctivae normal Neck Neck: normal visual inspection, full ROM, trachea midline and supple Chest Chest: normal palpation of entire chest wall Resp Effort & Inspection: normal respiratory effort, able to speak in complete sentences and cough (Mild, dry) Auscultation: diminished lung sounds bilaterally (Right worse than left) Cardio Rate: regular rate Rhythm: regular rhythm GI Palpation: soft, not firm, no guarding, no pulsatile masses and nontender Auscultation: normal bowel sounds Back/Spine/Pelvis Back: no CVA tenderness and back tenderness Back/spine/pelvis image: 1. Ecchymosis, mild tenderness. No crepitus. Skin is intact Skin General skin exam: no rashes or lesions noted Neuro General: patient alert, patient awake, moves all extremities and no focal motor deficits Cognition: normal cognition Speech: speech normal Gait: normal gait Motor: muscle tone normal throughout Sensory Exam: no sensory deficits noted Extrem General: full ROM, capillary refill normal and pedal edema bilaterally pitting and 1+ (mild) Psych Appearance: grossly normal Mental Status: mental status grossly normal Course Vital Signs Vital signs: Vital Signs Temperature 37.1 C 01/14/21 14:58 Pulse 79 01/14/21 14:58 Respiratory Rate 16 01/14/21 14:58 Blood Pressure 152/88 H 01/14/21 14:58 Pulse Oximetry 86 L 01/14/21 14:58 Temperature 37.1 C 01/14/21 14:58 Temperature Source Oral 01/14/21 14:58 Pulse 79 01/14/21 14:58 Respiratory Rate 16 01/14/21 14:58 Respiratory Effort Non-Labored 01/14/21 15:00 Blood Pressure 152/88 H 01/14/21 14:58 Pulse Oximetry 86 L 01/14/21 14:58 Oxygen Delivery Method Room Air 01/14/21 14:58 Oxygen Flow Rate 0 01/14/21 14:58 Pain Level 5 01/14/21 15:00
--- NOTE | 2021-01-14 17:00 | DI.VRAD_ITS ---
PROCEDURE INFORMATION: Exam: XR Chest Exam date and time: 01/14/2021 4:14 PM Age: 80 years old Clinical indication: Cough and other: SOB TECHNIQUE: Imaging protocol: XR of the chest. Views: 1 view. COMPARISON: CR XR CHEST 2V PA LATERAL 12/20/2020 8:14 PM FINDINGS: Lungs: Patchy opacification in the right base is seen. It could represent consolidation and/or atelectasis. Pleural spaces: There is of small to moderate right pleural effusion again seen. Heart/Mediastinum: Unremarkable. No cardiomegaly. Bones/joints: Unremarkable. IMPRESSION: Persistent right basilar effusion and associated collapse/consolidation Dictated and Authenticated by: Alonso Bonilla MD. Ordering:LAY Longoria MD
[2021-01-14 17:09] LABS: Source Nasal/Nares
--- NOTE | 2021-01-14 17:15 | RT.EKG_ITS ---
APPROVED REPORT Exam: Resting ECG Reason for Exam: sob Patient Location: E HR:78 bpm ECG Measurements Heart Rate 78 AXIS CA 261 P 256 QRSd 150 QRS 128 QT 434 T -23 QTc 506 Conclusion Sinus or ectopic atrial rhythm...P axis (-45,135) Ventricular premature complex...V complex w/ short R-R interval Prolonged CA interval...CA >220, V-rate 50- 90 Consider dextrocardia...P, QRS axis rightward
[2021-01-14 17:47] LABS: Abs Immature Grans 0.03 10^3/uL (0.0-0.06); Absolute Basophil Count 0.06 10^3/uL (0.0-0.2); Absolute Eosinophil Count 0.09 10^3/uL (0.0-0.7); Absolute Lymphocyte Count 1.28 10^3/uL (1.2-3.4); Absolute Monocyte Count 0.74 10^3/uL (0.1-0.8); Absolute Neutrophil Count 6.56 10^3/uL (1.2-6.7); Basophils % 0.7; HCT 40.6 % (40.0-50.0); HGB 12.4 g/dL (13.5-17.5); Immature Grans % 0.3; Lymphocytes % 14.6; MCH 28.6 pg (27.0-33.0); MCHC 30.5 % (32.0-36.0); MCV 93.5 fL (80-95); MPV 9.5 fL (8.0-11.0); Monocytes % 8.4; Nucleated RBC 0 %; Platelet Count 280 10^3/uL (130-400); RBC 4.34 10^6/uL (4.36-5.78); RDW 16.6 % (11.8-14.1); WBC 8.76 10^3/uL (4.4-10.8)
[2021-01-14 17:56] LABS: ALT 32 U/L (16-63); AST 50 U/L (15-37); Albumin 3.5 g/dL (3.4-5.0); Alkaline Phosphatase 465 U/L (46-116); Anion Gap 5.9 mmol/L (3-11); BUN 43 mg/dL (7-18); Bilirubin, Total 1.1 mg/dL (0.2-1.0); CO2 34.1 mmol/L (21.0-32.0); CREATININE 1.2 mg/dL (0.70-1.30); Calcium 9.2 mg/dL (8.5-10.1); Chloride 103 mmol/L (98-107); Estimated GFR 58.26 (mL/min/1.73m2); Glucose 84 mg/dL (74-106); Potassium 4.4 mmol/L (3.5-5.1); Sodium 143 mmol/L (136-145); Total Protein 7.7 g/dL (6.4-8.2)
[2021-01-14 18:01] LABS: COVID-19 PCR Negative (Negative)
[2021-01-14 18:05] LABS: Magnesium 2.4 mg/dL (1.8-2.4); NT-proBNP 25103 pg/mL (<300); Troponin I < 0.05 ng/mL (<0.06)
--- NOTE | 2021-01-14 19:30 | NUR.NOTE ---
pt given sandwich and gingerale Nursing Note:
[2021-01-14] MEDS: Furosemide 100 MG/10 ML VIAL 80 MG IVP (19:35)
[2021-01-14] MEDS: Enoxaparin 40 MG/0.4 ML SYR SC (22:26)
[2021-01-14] MEDS: Normal Saline Flush 10 ML SYR IVP (22:26)
[2021-01-14 23:07] LABS: Troponin I < 0.05 ng/mL (<0.06)
[2021-01-15] VITALS (9 sets, daily range): BP systolic 134–147; BP diastolic 81–86; PULSE 64–83; RESP 16–18; TEMP 36.1–36.6; O2SAT 86–95
--- NOTE | 2021-01-15 02:07 | HPE_ITS ---
Date of service: 01/15/21 Time of Service: 02:07 Assessment and Plan Assessment and plan (1) Acute exacerbation of CHF (congestive heart failure): Status: Acute Assessment and plan: Combined systolic/diastolic CHF, last EF I am able to find is from echo in 10/17 with EF of 40-45%. Continue diuresis with IV lasix. Add spironolactone given co-existence of cirrhosis. Start 1500 cc/day fluid restriction. I attempted to educate the patient on this today, but I think this will need reinforcement. Monitor I/O's, daily weights. Monitor on tele. Consult palliative care due to frequent readmissions. Recheck amb. pulse ox in am. Would benefit from home health nursing. Qualifiers: Heart failure type: combined systolic and diastolic Qualified Code(s): I50.43 - Acute on chronic combined systolic (congestive) and diastolic (congestive) heart failure (2) Right lower lobe pneumonia: Status: Suspected Assessment and plan: While this was not clearly read as such by radiology, the patient is presenting with a new cough productive of purulent sputum as well as subjective fever. He ruled out for COVID-19. The patient's stays with us at our facility have been brief. For this reason, I think that CAP coverage should be adequate with low threshold to upgrade to HCAP coverage. Obtain blood/sputum cultures. Encourage IS/acapella. Consider addition of steroids. Checking procalcitonin with am labs. 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 Salt restriction imperative. (4) Pleural effusion on right: Status: Chronic Assessment and plan: This is more of a chronic finding, but it predisposes him to developing atelectasis and PNA. Diurese. Provide IS as there is evidence of atelectasis associated with this pleural effusion. Treat empirically for PNA. Check procalcitonin. (5) Chronic kidney disease: Status: Chronic Assessment and plan: The patient's Cr today is actually better than at baseline, suggestive of likely fluid overload. Will monitor renal function as we are diuresing. Qualifiers: Chronic kidney disease stage: stage 3 (moderate) Chronic kidney disease stage 3 subtype: stage 3a (GFR 45-59) Qualified Code(s): N18.31 - Chronic kidney disease, stage 3a (6) DVT prophylaxis: Status: Acute Assessment and plan: SC enoxaparin (7) Discharge planning issues: Status: Acute Assessment and plan: DNR/DNI. C/s palliative care, physical therapy. Would benefit from home health services. History of Present Illness History of Present Illness Chief Complaint: Shortness of breath Narrative: Mr Yuan is an 80 year old male with PMHx of combined chronic systolic and diastolic CHF with latest EF of 40-45% by echo in 09/2020, as well as pleural effusion and ascites w/ h/o h/o cirrhosis due to DESAI, B carotid stenosis and left carotid occlusion who presented to [facility] ED on 01/14/21 c/o shortness of breath. While his O2 sats were in mid 90s at rest, he did desaturate to the 80s on walking. His ED workup was consistent with an acute exacerbation of his CHF, and he received a dose of lasix 80 mg IV x1 while in the ED. COVID-19 was ruled out. Hospitalist admission was requested. Patient is a challenging history provider due to his baseline speech impediment in addition to giving vague descriptions of symptoms that frequently change. I am able to understand from our conversation that his shortness of breath is maybe a little bit worse today, but what concerns him more is his cough which he has had for 1 week and is productive of green sputum. He had a feeling of being flushed/hot yesterday, like if I had a fever. He does not have a thermometer at home so he does not know what his temperature was. He endorses a chronically congested nose, but yesterday he had a pressure sensation in his face and jaw. He denies chest pain, but states that he has had a sensation of fluttering in his chest. He has had to fold his pillow in half to double its height because otherwise he was feeling more short of breath. He states he does not eat a lot of salt, but does not know how much salt he is allowed to eat. He admits to drinking a lot of fluid because a doctor told me to. He weighs himself every day and states that the weights have been more or less the same. He is aware he is supposed to call his PCP if he has gained more than 3 lbs in 3 days. He denies sore throat, changes to taste/smell, or contact with anyone with symptoms or confirmed COVID-19. Of note, the patient was discharged from the hospitalist service on 11/27/20 on furosemide 40 mg PO BID. He was seen in our ED at 12/17/20 and left AMA. He was again seen on 12/20 with CHF and was stable for discharge home on unchanged dose of lasix. While there was a prior referral to home health, it does not appear that he is currently a [facility] client. He is DNR/DNI. 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) (Acute) CHF (congestive heart failure) (Chronic) Dyspnea (Acute) CHF (congestive heart failure) (Chronic) Acute exacerbation of CHF (congestive heart failure) (Acute) Pleural effusion (Acute) Anasarca (Acute) Dizziness (Acute) Dizziness (Acute) Congestive heart failure (Chronic) Contusion of hand, left (Acute) Contusion of hip, left (Acute) Mild dehydration (Acute) Fracture of triquetral bone of left wrist (Acute) Carotid stenosis, right (Acute) Acute exacerbation of CHF (congestive heart failure) (Acute) Dysphasia (Acute) Internal carotid artery occlusion (Acute) Acute kidney injury superimposed on chronic kidney disease (Acute) Dysarthria (Acute) Abdominal pain (Acute) Shortness of breath (Acute) Dizziness (Acute) Pleural effusion on right (Chronic) Palpitations (Acute) Calcific tendinitis of right shoulder (Acute) Cervical spinal stenosis (Acute) Palliative care patient (Chronic) DNI (do not intubate) (Acute) DNR (do not resuscitate) (Acute) POLST (Physician Orders for Life-Sustaining Treatment) (Acute) Hypoxia (Chronic) Right shoulder pain (Acute) At risk for aspiration (Acute) Weakness generalized (Acute) Acute hypernatremia (Acute) Mental status, decreased (Acute) Discharge planning issues (Acute) DVT prophylaxis (Acute) Bladder neck contracture (Acute) Prostate cancer (Chronic) Chronic kidney disease (Chronic) Hypercholesterolemia (Chronic) Hypertension (Chronic) CAD (coronary artery disease) (Chronic) Ischemic cardiomyopathy (Chronic) Heart failure, chronic, with acute decompensation (Acute 12/31/12) Bladder outlet obstruction (Chronic) Medical History (Updated 01/15/21 @ 03:30 by Mónica Moreno MD) Ascites CHF (congestive heart failure) Combined systolic/diastolic, EF 50% by echo in 03/19 Chronic shortness of breath Cirrhosis DESAI (nonalcoholic steatohepatitis) Pleural effusion, right Surgical History History of heart artery stent S/P prostatectomy Status post THR (total hip replacement) Family History Son No problems noted. Social History Smoking/Tobacco Use Status: Never Smoking risk assessment performed?: Yes Alcohol Intake: former Drug use: Never Substance use type: does not use Caregiver/Support person: Yes Communication Needs: Hard of Hearing and Corrective Lenses Education Level: high school Do you need help understanding health information?: Always Current gender identity: male How often do you talk on the phone with friends or family?: three or more times per week How often do you get together with friends or relatives?: three or more times per week Panel score (0-1 are the most socially isolated patients): 1 What type of physical activity do you participate in: walking Duration: 15-30 minutes/day Special deanna needs: No Seatbelt use: always Do you feel safe at home: Yes Do you feel safe in your relationship?: Yes Additional Social history: Son Berto is his main person who helps care for him. He is a , but was posted in [place] during the [employer] era. He has insurance with both medicare and [employer] Meds Allergies and Home Medications Allergies Allergy/AdvReac Type Severity Reaction Status Date / Time amlodipine AdvReac Intermediate Swelling/Ed Unverified 01/14/21 15:05 lottie enalapril maleate AdvReac Intermediate cough Unverified 01/14/21 15:05 [From Vasotec] enalaprilat dihydrate AdvReac Intermediate cough Unverified 01/14/21 15:05 [From Vasotec] Home Medications Medication Instructions Recorded Confirmed Type nitroglycerin 0.4 mg SUBLINGUAL PRN PRN 12/31/12 01/14/21 History acetaminophen [Tylenol Arthritis 1,300 mg PO Q6H PRN PRN #0 01/03/13 01/14/21 Rx Pain] aspirin [Aspir-81] 81 mg PO DAILY 10/28/15 01/14/21 History allopurinol 100 mg PO DAILY #0 tab 04/16/20 01/14/21 Rx metoprolol succinate 100 mg PO DAILY #0 tab 04/16/20 01/14/21 Rx pantoprazole 40 mg PO DAILY@0730 #30 tab 04/16/20 01/14/21 Rx atorvastatin 80 mg PO DAILY 05/05/20 01/14/21 History furosemide 40 mg PO BID@0830,1600 #60 tab 05/08/20 01/14/21 Rx valsartan [Diovan] 20 mg PO BID #60 tab 10/17/20 01/14/21 Rx Exam Narrative Exam Narrative: General: Pleasant elderly male who is laying on his right side with head of the bed at about 35% and two pillows, no dyspnea/tachypnea/cyanosis, speaking in complete sentences on room air. Baseline speech impediment. Coughing. Neurological: A&Ox3, baseline speech impediment, no focal deficits Psychiatric: Appropriate speech pattern/content Skin: No visible bruises/rashes HEENT:Atraumatic, normocephalic, OEMI, MMM, clear oropharynx, no submandibular or cervical lymphadenopathy, no goiter or JVD Cardiovascular: RRR with several extra beats while I am listening to the patient, no m/r/g Lungs: coarse breath sounds with faint rales at B bases Gastrointestinal: soft, nontender, nondistended Genitourinary: deferred Extremities: +1 edema BLE's, symmetric, +1 pedal pulses B Results Imaging Additional studies: EKG: HR 78, SR with PVCs, P waves are burried in the T waves and prolonged DC interval. Nonspecific IVCD. Slightly altered QRS wave morphology in V2 only. No acute ischemia. CXR: Persistent right basilar effusion and associated collapse/consolidation Labs Result diagrams: 01/14/21 17:10 01/14/21 17:10 Labs: Laboratory Results - last 24 hr 01/14/21 01/14/21 01/14/21 17:00 17:10 17:10 WBC RBC Hgb Hct MCV MCH MCHC RDW Plt Count MPV Immature Gran % Neutrophils % Lymphocytes % Monocytes % Eosinophils % Basophils % Nucleated RBC % Absolute Neutrophils Absolute Lymphocytes Absolute Monocytes Absolute Eosinophils Absolute Basophils Sodium 143 Potassium 4.4 Chloride 103 Carbon Dioxide 34.1 H Anion Gap 5.9 BUN 43 H Creatinine 1.2 Estimated GFR/1.73 m2 58.26 Glucose 84 Calcium 9.2 Magnesium 2.4 Total Bilirubin 1.1 H AST 50 H ALT 32 Alkaline Phosphatase 465 H Troponin I < 0.05 NT-Pro-B Natriuret Pep 26525 H Total Protein 7.7 Albumin 3.5 COVID-19 Source Nasal/Nares SARS-CoV-2 (PCR) Negative 01/14/21 01/14/21 17:10 22:17 WBC 8.76 RBC 4.34 L Hgb 12.4 L Hct 40.6 MCV 93.5 MCH 28.6 MCHC 30.5 L RDW 16.6 H Plt Count 280 MPV 9.5 Immature Gran % 0.3 Neutrophils % 75.0 Lymphocytes % 14.6 Monocytes % 8.4 Eosinophils % 1.0 Basophils % 0.7 Nucleated RBC % 0 Absolute Neutrophils 6.56 Absolute Lymphocytes 1.28 Absolute Monocytes 0.74 Absolute Eosinophils 0.09 Absolute Basophils 0.06 Sodium Potassium Chloride Carbon Dioxide Anion Gap BUN Creatinine Estimated GFR/1.73 m2 Glucose Calcium Magnesium Total Bilirubin AST ALT Alkaline Phosphatase Troponin I < 0.05 NT-Pro-B Natriuret Pep Total Protein Albumin COVID-19 Source SARS-CoV-2 (PCR) Last Vital Signs Temp 36.5 C 01/14/21 23:10 Pulse 76 01/14/21 23:10 Resp 18 01/14/21 23:10 BP 131/84 01/14/21 23:10 Pulse Ox 98 01/14/21 23:10
[2021-01-15] MEDS: cefTRIAXone 1 GM/50 ML BAG IVPB (04:46)
[2021-01-15] MEDS: DOXYCYCLINE 100 MG in Normal Saline 100 ML IVPB ×2 (06:43→17:33)
[2021-01-15 07:38] LABS: HGB 12.3 g/dL (13.5-17.5); MCH 28.3 pg (27.0-33.0); MCV 94.5 fL (80-95); MPV 9.6 fL (8.0-11.0); Platelet Count 218 10^3/uL (130-400); RBC 4.34 10^6/uL (4.36-5.78); RDW 16.7 % (11.8-14.1); WBC 8.04 10^3/uL (4.4-10.8)
[2021-01-15] MEDS: Pantoprazole 40 MG TABCR PO (07:53)
[2021-01-15] MEDS: Furosemide 40 MG/4 ML VIAL IVP ×2 (07:53→16:08)
[2021-01-15] MEDS: Normal Saline Flush 10 ML SYR IVP ×4 (07:53→20:23)
[2021-01-15] MEDS: guaiFENesin 600 MG TABCR PO ×2 (07:53→20:23)
[2021-01-15] MEDS: Metoprolol CR 25 MG TABCR 100 MG PO (07:53)
[2021-01-15] MEDS: Allopurinol 100 MG TAB PO (07:54)
[2021-01-15] MEDS: Spironolactone 50 MG TAB PO (07:54)
[2021-01-15] MEDS: Aspirin E.C. 81 MG TABEC PO (07:54)
[2021-01-15] MEDS: Atorvastatin 40 MG TAB 80 MG PO (07:54)
[2021-01-15 08:03] LABS: Troponin I < 0.05 ng/mL (<0.06)
[2021-01-15 08:08] LABS: Anion Gap 6.5 mmol/L (3-11); BUN 41 mg/dL (7-18); CO2 33.5 mmol/L (21.0-32.0); CREATININE 1.2 mg/dL (0.70-1.30); Calcium 8.7 mg/dL (8.5-10.1); Chloride 101 mmol/L (98-107); Estimated GFR 58.26 (mL/min/1.73m2); Glucose 82 mg/dL (74-106); Magnesium 2.2 mg/dL (1.8-2.4); Potassium 3.9 mmol/L (3.5-5.1); Sodium 141 mmol/L (136-145); TSH (W/Ref FT4) 2.35 uIU/mL (0.36-3.74)
[2021-01-15 08:55] LABS: Procalcitonin < 0.1 ng/mL
[2021-01-15] MEDS: Valsartan 40 MG TAB 20 MG PO ×2 (09:03→20:23)
[2021-01-15] MEDS: Fluticasone NASAL SPRAY 16 GM BTL NS (09:03)
--- NOTE | 2021-01-15 10:07 | W.PM.PROGNOT ---
Date of Service Date of service: 01/15/21 Time of Service: 10:07 Subjective Subjective Patient reports: other Interval history since last seen: Patient had severe PTSD nightmares last night with aggressive behavior towards staff. He did not remember when waking. Will start minipress at 1 mg with room for titration, also has ativan IM for agitation as needed for PTSD outbreaks if needed. BP is elevated. Will monitor behavior. Objective Last Vital Signs Temp 36.1 C L 01/15/21 07:38 Pulse 72 01/15/21 07:50 Resp 17 01/15/21 07:38 BP 147/86 H 01/15/21 07:38 Pulse Ox 95 01/15/21 07:38 Laboratory Results - last 24 hr 01/14/21 01/14/21 01/14/21 17:00 17:10 17:10 WBC RBC Hgb Hct MCV MCH MCHC RDW Plt Count MPV Immature Gran % Neutrophils % Lymphocytes % Monocytes % Eosinophils % Basophils % Nucleated RBC % Absolute Neutrophils Absolute Lymphocytes Absolute Monocytes Absolute Eosinophils Absolute Basophils Sodium 143 Potassium 4.4 Chloride 103 Carbon Dioxide 34.1 H Anion Gap 5.9 BUN 43 H Creatinine 1.2 Estimated GFR/1.73 m2 58.26 Glucose 84 Calcium 9.2 Magnesium 2.4 Total Bilirubin 1.1 H AST 50 H ALT 32 Alkaline Phosphatase 465 H Troponin I < 0.05 NT-Pro-B Natriuret Pep 76090 H Total Protein 7.7 Albumin 3.5 Procalcitonin TSH COVID-19 Source Nasal/Nares SARS-CoV-2 (PCR) Negative 01/14/21 01/14/21 01/15/21 17:10 22:17 07:15 WBC 8.76 8.04 RBC 4.34 L 4.34 L Hgb 12.4 L 12.3 L Hct 40.6 41.0 MCV 93.5 94.5 MCH 28.6 28.3 MCHC 30.5 L 30.0 L RDW 16.6 H 16.7 H Plt Count 280 218 MPV 9.5 9.6 Immature Gran % 0.3 Neutrophils % 75.0 Lymphocytes % 14.6 Monocytes % 8.4 Eosinophils % 1.0 Basophils % 0.7 Nucleated RBC % 0 Absolute Neutrophils 6.56 Absolute Lymphocytes 1.28 Absolute Monocytes 0.74 Absolute Eosinophils 0.09 Absolute Basophils 0.06 Sodium Potassium Chloride Carbon Dioxide Anion Gap BUN Creatinine Estimated GFR/1.73 m2 Glucose Calcium Magnesium Total Bilirubin AST ALT Alkaline Phosphatase Troponin I < 0.05 NT-Pro-B Natriuret Pep Total Protein Albumin Procalcitonin TSH COVID-19 Source SARS-CoV-2 (PCR) 01/15/21 01/15/21 01/15/21 07:15 07:15 07:15 WBC RBC Hgb Hct MCV MCH MCHC RDW Plt Count MPV Immature Gran % Neutrophils % Lymphocytes % Monocytes % Eosinophils % Basophils % Nucleated RBC % Absolute Neutrophils Absolute Lymphocytes Absolute Monocytes Absolute Eosinophils Absolute Basophils Sodium 141 Potassium 3.9 Chloride 101 Carbon Dioxide 33.5 H Anion Gap 6.5 BUN 41 H Creatinine 1.2 Estimated GFR/1.73 m2 58.26 Glucose 82 Calcium 8.7 Magnesium 2.2 Total Bilirubin AST ALT Alkaline Phosphatase Troponin I < 0.05 NT-Pro-B Natriuret Pep Total Protein Albumin Procalcitonin < 0.1 TSH 2.35 COVID-19 Source SARS-CoV-2 (PCR)
--- NOTE | 2021-01-15 11:32 | IN_ITS ---
PT Notes Physical Therapy Inpatient Initial Evaluation Date: 01/15/2021 Referring Doctor: Mónica Moreno MD PT Orders: PT CONSULT: Limited ability Precautions: Fall. Standard. Activity as tolerated. Patient Profile/Admitting Diagnosis: Joaquín is a 80-year-old male who presented to the ED on 01/14/2021 due to acute on chronic shortness of breath, runny nose, and slight productive cough. He tested negative for COVID-19 infection. Patient is diagnosed with acute on chronic congestive heart failure, right lower lobe pneumonia, liver cirrhosis secondary to DESAI, and pleural effusion. 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) (Acute) CHF (congestive heart failure) (Chronic) Dyspnea (Acute) CHF (congestive heart failure) (Chronic) Acute exacerbation of CHF (congestive heart failure) (Acute) Pleural effusion (Acute) Anasarca (Acute) Dizziness (Acute) Dizziness (Acute) Congestive heart failure (Chronic) Contusion of hand, left (Acute) Contusion of hip, left (Acute) Mild dehydration (Acute) Fracture of triquetral bone of left wrist (Acute) Carotid stenosis, right (Acute) Acute exacerbation of CHF (congestive heart failure) (Acute) Dysphasia (Acute) Internal carotid artery occlusion (Acute) Acute kidney injury superimposed on chronic kidney disease (Acute) Dysarthria (Acute) Abdominal pain (Acute) Shortness of breath (Acute) Dizziness (Acute) Pleural effusion on right (Chronic) Palpitations (Acute) Calcific tendinitis of right shoulder (Acute) Cervical spinal stenosis (Acute) Palliative care patient (Chronic) DNI (do not intubate) (Acute) DNR (do not resuscitate) (Acute) POLST (Physician Orders for Life-Sustaining Treatment) (Acute) Hypoxia (Chronic) Right shoulder pain (Acute) At risk for aspiration (Acute) Weakness generalized (Acute) Acute hypernatremia (Acute) Mental status, decreased (Acute) Discharge planning issues (Acute) DVT prophylaxis (Acute) Bladder neck contracture (Acute) Prostate cancer (Chronic) Chronic kidney disease (Chronic) Hypercholesterolemia (Chronic) Hypertension (Chronic) CAD (coronary artery disease) (Chronic) Ischemic cardiomyopathy (Chronic) Heart failure, chronic, with acute decompensation (Acute 12/31/12) Bladder outlet obstruction (Chronic) Medical History (Updated 01/15/21 @ 03:30 by Mónica Moreno MD) Ascites CHF (congestive heart failure) Combined systolic/diastolic, EF 50% by echo in 03/19 Chronic shortness of breath Cirrhosis DESAI (nonalcoholic steatohepatitis) Pleural effusion, right Surgical History History of heart artery stent S/P prostatectomy Status post THR (total hip replacement) Social History/Home Situation: Lives alone in a private home with 3 steps to enter with rails on both sides. Equipment Owned/DME: Front-wheeled walker, SPC Subjective: Agreeable to PT consult. Denies dizziness, chest pain, and lightheadedness throughout. Reports some mild pain in both hips at 1?2 Objective: General Observation: Seated on bedside chair. IV access in the right UE. Mental Status: Alert and oriented x4 Pain: Mild pain in both hips 1?04/08 ROM: Right Upper Extremity: Shoulder Flexion WFL. Shoulder abduction WFL. Elbow flexion WFL. Wrist flexion WFL. Functional opening and closing of hand WFL. Left Upper Extremity: Shoulder Flexion WFL. Shoulder abduction WFL. Elbow flexion WFL. Wrist flexion WFL. Functional opening and closing of hand WFL. Right Lower Extremity: Hip flexion WFL. Hip abduction WFL. Knee flexion WFL. Ankle dorsiflexion WFL. Ankle plantarflexion WFL. Left Lower Extremity: Hip flexion WFL. Hip abduction WFL. Knee flexion WFL. Ankle dorsiflexion WFL. Ankle plantarflexion WFL. Strength: Right Upper Extremity: Shoulder flexors 4/5. Shoulder abductors 4/5. Elbow flexors 4/5. Elbow extensors 4/5. Airborne Sensor Specialist strong. Left Upper Extremity: Shoulder flexors 4/5. Shoulder abductors 4/5. Elbow flexors 4/5. Elbow extensors 4/5. Airborne Sensor Specialist strong. Right Lower Extremity: Hip flexors 4/5. Hip abductors 4/5. Knee flexors 4/5. Knee extensors 4/5. Ankle dorsiflexors 4/5. Ankle plantarflexors 5/5. Left Lower Extremity: Hip flexors 4/5. Hip abductors 4/5. Knee flexors 4/5. Knee extensors 4/5. Ankle dorsiflexors 4/5. Ankle plantarflexors 4/5. Sensation: Intact as to pain and pressure on bilateral upper and lower extremities. Bed Mobility/Transfers: Sit to stand supervision Stand to sit supervision Bed to chair supervision Chair to bed i supervision Gait: Guided patient ambulation of 150 feet +100 feet using front-wheeled walker with no complaints of SOB requiring only standby assist. No LOB. No complaints of dizziness nor chest pain. Balance: Static Sitting: Normal Dynamic Sitting: Normal Static Standing: Good Dynamic Standing: Good Special Tests: Mobility Limitations Standardized Measure [facility]-PAC 6 clicks Basic Mobility Inpatient Short Form: Raw Score: 24 CMS Score: 0% deficit % deficit 4-Stage Balance Test: Able to hold feet together 4/10 but is unable to do so with semitandem, full tandem and 1 legged stance indicating falls. Informed Consent/Education: Patient instructed in purpose of PT consult and plan of care. Assessment: Joaquín will require services to address deconditioning from admitting diagnoses. He will also benefit from short-term balance training and mobility progression to independent ambulation without an assistive device. Patient presents with clinical signs and symptoms consistent with current/admitting diagnoses that have resulted to mobility limitations, generalized weakness, and overall ADL decline as demonstrated by the following impairment level findings: 1. Decreased strength to B UE/LE major muscle groups 2. Impaired standing balance 3. Impaired activity tolerance Impairments are contributing to the following functional limitations: 1. Difficulty with ambulation without assistive device 2. Increased completion time for mobility ADL performance 3. Increased risk for falls 4. Difficulty with managing steps alone safely Patient is assessed as a 12039 moderate complexity based on the following: History: 80-year-old male with past medical history as indicated above Examination: Demonstrable impairment in strength, balance, and mobility level with underlying impairments and functional limitations as exhibited above Presentation: Stable Decision Makin moderate complexity Goals: Goals X1 week 1. Supine-Sit independent 2. Sit-Supine independent 3. Sit-Stand independent 4. Stand-Sit independent 5. Bed-Chair independent 6. Chair-Bed independent 7. Independent gait on level surface with use of no AD for at least 300 feet without report of pain nor dyspnea 8. Independent stair negotiation while holding onto bilateral rails for at least 5 steps without report of pain nor dyspnea DISCHARGE RECOMMENDATIONS: [] Home with no services [] [X] Home with HH PT services to progress mobility level using least restrictive assistive ambulatory device, assess home safety, identify additional equipment needs, and establish a functional maintenance program that will increase ability of patient to remain at home. [] Home with outpatient PT [] [] SNF for continued rehabilitation [] [] Skilled Nursing Care [] [] SNF versus LTC based on ability to participate and progress [] TREATMENT CODE/TIME: 9716 2 x 20 minutes beginning at 11:32 AM. Thank you for the opportunity to participate in the care of this patient. Krystin Serna PT, DPT, CLT [facility] [place], [place]
--- NOTE | 2021-01-15 12:25 | PDOC.CMIN ---
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 CHF (congestive heart failure) (Chronic). Dyspnea (Acute). CHF (congestive heart failure) (Chronic). Acute exacerbation of CHF (congestive heart failure) (Acute). Pleural effusion (Acute). Anasarca (Acute). Dizziness (Acute). Dizziness (Acute). Congestive heart failure (Chronic). Contusion of hand, left (Acute). Contusion of hip, left (Acute). Mild dehydration (Acute). Fracture of triquetral bone of left wrist (Acute). Carotid stenosis, right (Acute). Acute exacerbation of CHF (congestive heart failure) (Acute). Dysphasia (Acute). Internal carotid artery occlusion (Acute). Acute kidney injury superimposed on chronic kidney disease (Acute). Dysarthria (Acute). Abdominal pain (Acute). Shortness of breath (Acute). Dizziness (Acute). Pleural effusion on right (Chronic). Palpitations (Acute). Calcific tendinitis of right shoulder (Acute). Cervical spinal stenosis (Acute). Palliative care patient (Chronic). DNI (do not intubate) (Acute). DNR (do not resuscitate) (Acute). POLST (Physician Orders for Life-Sustaining Treatment) (Acute). Hypoxia (Chronic). Right shoulder pain (Acute). At risk for aspiration (Acute). Weakness generalized (Acute). Acute hypernatremia (Acute). Mental status, decreased (Acute). Discharge planning issues (Acute). DVT prophylaxis (Acute). Bladder neck contracture (Acute). Prostate cancer (Chronic). Chronic kidney disease (Chronic). Hypercholesterolemia (Chronic). Hypertension (Chronic). CAD (coronary artery disease) (Chronic). Ischemic cardiomyopathy (Chronic). Heart failure, chronic, with acute decompensation (Acute 12/31/12). Bladder outlet obstruction (Chronic). Medical History (Updated 01/15/21 @ 03:30 by Mónica Moreno MD). Ascites. CHF (congestive heart failure). Combined systolic/diastolic, EF 50% by echo in 03/19. Chronic shortness of breath. Cirrhosis. DESAI (nonalcoholic steatohepatitis). Pleural effusion, right. Surgical History . History of heart artery stent. S/P prostatectomy. Status post THR (total hip replacement) PREVIOUS FUNCTIONAL STATUS/SOCIAL/FAMILY SUPPORTS:: Joaquín lives alone in a studio apartment in [place], [place]. He has been marrried twice and is still in contact with one of his ex-wives who lives closeby with one of his sons.One of his other sons has been staying with him and will be there until the end of the year. Joaquín has 4 other children, several of which live out of state. He states his family is supportive. 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 He is independent at baseline and continues to drive. ADVANCE DIRECTIVES:: COLST on file Has patient been provided with info about the portal/API?: Yes Did the patient sign up for the portal?: Yes (Previously) CODE STATUS:: DNR/DNI INSURANCE COVERAGE / FINANCIAL ISSUES:: Medicare. [employer] for [email or web address] CURRENT HOME/COMMUNITY SERVICES/EQUIPMENT:: owns a walker and cane but does not use PRIMARY CARE PHYSICIAN:: Haily Alvarez POTENTIAL DISCHARGE NEEDS:: Follow up with PCP PATIENT/FAMILY EDUCATION NEEDS:: Discharge instructions, limitations, follow up plan of care, including Ask Me Three and self management. ANTICIPATED BARRIERS TO DISCHARGE:: None identified. TRANSPORTATION:: via private vehicle with son PLAN:: Anticipate Joaquín will be discharged home with new orders for home PT when medically cleared by provider. He will follow up with his PCP and discharge plan of care as directed. He will be driven home via private vehicle by his son. CM will continue to follow.
--- NOTE | 2021-01-15 15:56 | PT.INTREAT ---
Date of service: 01/15/21 Time of Service: 15:35 PT Notes Inpatient Physical Therapy Treatment Note [facility] Date: 01/15/2021 PRECAUTIONS: Activity as tolerated SUBJECTIVE: Joaquín states that he is feeling pretty good. He is very pleasant and agreeable to participating in PT. OBJECTIVE: PAIN: No complaints of pain BED MOBILITY/TRANSFERS Sit-stand: I Stand-sit: I GAIT Assistive Device: FWW Weight bearing: Full Assist: S Distance: 300' Deviation: No SOB or LOB ASSESSMENT: Patient tolerated session without complaint. He was able to tolerate a progression in gait distance with FWW support and supervision. PLAN: Continue with global strengthening and general conditioning for improved activity tolerance. TREATMENT CODE/TIME: 15 minutes; [id number] (15:35)
--- NOTE | 2021-01-15 17:26 | CHAPLAIN ---
Joaquín is very pleasant. We remembered meeting on a previous admission. I had trouble understanding some of what Joaquín said, but he talked about [place] A son visits often and he is in touch with his exwife. Joaquín was in the [employer] and then the [employer]. He talked about the places where he lived and traveled to in the . He expects to be in touch with family by phone.
[2021-01-15 20:12] LABS: Legionella Ag Detection Urine Negative (Negative)
[2021-01-15] MEDS: Prazosin 1 MG CAP PO (22:40)
[2021-01-15] MEDS: Enoxaparin 40 MG/0.4 ML SYR SC (22:41)
[2021-01-16] VITALS (8 sets, daily range): BP systolic 119–142; BP diastolic 58–87; PULSE 58–69; RESP 16–22; TEMP 36.4–37.4; O2SAT 88–99
[2021-01-16] MEDS: Normal Saline 500 ML 30 ML IV (05:22)
[2021-01-16] MEDS: Normal Saline Flush 10 ML SYR IVP ×4 (05:23→19:13)
[2021-01-16] MEDS: cefTRIAXone 1 GM/50 ML BAG IVPB (05:23)
[2021-01-16] MEDS: DOXYCYCLINE 100 MG in Normal Saline 100 ML IVPB (06:31)
[2021-01-16 07:30] LABS: NT-proBNP 18564 pg/mL (<300)
[2021-01-16] MEDS: Furosemide 40 MG/4 ML VIAL IVP ×2 (08:08→16:07)
[2021-01-16] MEDS: Valsartan 40 MG TAB 20 MG PO ×2 (08:08→19:13)
[2021-01-16] MEDS: Pantoprazole 40 MG TABCR PO (08:09)
[2021-01-16] MEDS: guaiFENesin 600 MG TABCR PO ×2 (08:09→19:13)
[2021-01-16] MEDS: Spironolactone 50 MG TAB PO (08:09)
[2021-01-16] MEDS: Metoprolol CR 25 MG TABCR 100 MG PO (08:10)
[2021-01-16] MEDS: Allopurinol 100 MG TAB PO (08:10)
[2021-01-16] MEDS: Atorvastatin 40 MG TAB 80 MG PO (08:11)
[2021-01-16] MEDS: Aspirin E.C. 81 MG TABEC PO (08:11)
[2021-01-16 08:49] LABS: Abs Immature Grans 0.06 10^3/uL (0.0-0.06); Absolute Basophil Count 0.05 10^3/uL (0.0-0.2); Absolute Eosinophil Count 0.08 10^3/uL (0.0-0.7); Absolute Lymphocyte Count 1.17 10^3/uL (1.2-3.4); Absolute Monocyte Count 0.81 10^3/uL (0.1-0.8); Absolute Neutrophil Count 5.19 10^3/uL (1.2-6.7); Basophils % 0.7; Eosinophils % 1.1; HCT 38.6 % (40.0-50.0); HGB 11.8 g/dL (13.5-17.5); Immature Grans % 0.8; Lymphocytes % 15.9; MCH 28.6 pg (27.0-33.0); MCHC 30.6 % (32.0-36.0); MCV 93.5 fL (80-95); Neutrophils % 70.5; Nucleated RBC 0 %; Platelet Count 207 10^3/uL (130-400); RBC 4.13 10^6/uL (4.36-5.78); RDW 16.5 % (11.8-14.1); RDW-SD 57.1 fL; WBC 7.36 10^3/uL (4.4-10.8)
[2021-01-16 08:50] LABS: Anion Gap 5.7 mmol/L (3-11); BUN 45 mg/dL (7-18); CO2 31.3 mmol/L (21.0-32.0); CREATININE 1.3 mg/dL (0.70-1.30); Calcium 8.5 mg/dL (8.5-10.1); Chloride 101 mmol/L (98-107); Estimated GFR 53.12 (mL/min/1.73m2); Glucose 96 mg/dL (74-106); Potassium 4.6 mmol/L (3.5-5.1); Sodium 138 mmol/L (136-145)
[2021-01-16] MEDS: Fluticasone NASAL SPRAY 16 GM BTL NS (08:51)
--- NOTE | 2021-01-16 09:49 | W.PM.PROGNOT ---
Date of Service Date of service: 01/16/21 Time of Service: 09:49 Assessment and Plan Assessment and plan (1) Acute exacerbation of CHF (congestive heart failure): Start date: 01/16/21 Start time: 09:52 Status: Acute Assessment and plan: Combined systolic/diastolic CHF, lecho in 10/17 with EF of 40-45%. Continue diuresis with IV lasix BID, BMP down from 25 K to 18 K Add spironolactone given co-existence of cirrhosis. Start 1500 cc/day fluid restriction. Monitor I/O's, daily weights. Telemetry dcd, controlled rate Consult palliative care due to frequent readmissions. Recheck amb. pulse ox in am. Wean oxygen Would benefit from home health nursing. Qualifiers: Heart failure type: combined systolic and diastolic Qualified Code(s): I50.43 - Acute on chronic combined systolic (congestive) and diastolic (congestive) heart failure (2) Right lower lobe pneumonia: Start date: 01/16/21 Start time: 09:55 Status: Suspected Assessment and plan: While this was not clearly read as such by radiology, the patient is presenting with a new cough productive of purulent sputum as well as subjective fever. He ruled out for COVID-19. The patient's stays with us at our facility have been brief. For this reason, CAP coverage should be adequate with low threshold to upgrade to HCAP coverage. Obtain blood/sputum cultures. Encourage IS/acapella. 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 Salt restriction imperative. (4) Pleural effusion on right: Start date: 01/16/21 Start time: 10:11 Status: Chronic Assessment and plan: This is more of a chronic finding, but it predisposes him to developing atelectasis and PNA. Diurese. Provide IS as there is evidence of atelectasis associated with this pleural effusion. Treat empirically for PNA. (5) Chronic kidney disease: Start date: 01/16/21 Start time: 10:12 Status: Chronic Assessment and plan: The patient's Cr today is actually better than at baseline, suggestive of likely fluid overload. Will monitor renal function as we are diuresing. Qualifiers: Chronic kidney disease stage: stage 3 (moderate) Chronic kidney disease stage 3 subtype: stage 3a (GFR 45-59) Qualified Code(s): N18.31 - Chronic kidney disease, stage 3a (6) Night terrors: Start date: 01/16/21 Start time: 10:12 Status: Acute Assessment and plan: Did well overnight with minipress, will continue at 1 mg. (7) DVT prophylaxis: Start date: 01/16/21 Start time: 10:13 Status: Acute Assessment and plan: SC enoxaparin (8) Discharge planning issues: Status: Acute Assessment and plan: DNR/DNI. C/s palliative care, physical therapy. Would benefit from home health services. Subjective Subjective Patient reports: no new complaints Interval history since last seen: Sitting up in chair. No c/o sleeping. Tolerating diet. No night terrors overnight per staff. Exam Narrative Exam Narrative: General: Pleasant elderly male sitting up in chair. Neurological: A&Ox3, baseline speech impediment, no focal deficits Psychiatric: Appropriate speech pattern/content Skin: bruise to right costal area of his back from fall prio to admission HEENT:Atraumatic, normocephalic, OEMI, MMM, clear oropharynx, no submandibular or cervical lymphadenopathy, no goiter or JVD Cardiovascular: RRR with several extra beat, no m/r/g Lungs: breath sounds with faint rales at B bases Gastrointestinal: soft, nontender, nondistended Extremities: +1 edema BLE's, symmetric, +1 pedal pulses B Objective Last Vital Signs Temp 36.4 C L 01/16/21 07:41 Pulse 58 L 01/16/21 07:41 Resp 20 01/16/21 07:41 BP 142/61 H 01/16/21 07:41 Pulse Ox 99 01/16/21 07:41 Laboratory Results - last 24 hr 01/15/21 01/16/21 01/16/21 08:40 06:32 06:32 WBC RBC Hgb Hct MCV MCH MCHC RDW Plt Count MPV Immature Gran % Neutrophils % Lymphocytes % Monocytes % Eosinophils % Basophils % Nucleated RBC % Absolute Neutrophils Absolute Lymphocytes Absolute Monocytes Absolute Eosinophils Absolute Basophils Sodium 138 Potassium 4.6 Chloride 101 Carbon Dioxide 31.3 Anion Gap 5.7 BUN 45 H Creatinine 1.3 Estimated GFR/1.73 m2 53.12 Glucose 96 Calcium 8.5 NT-Pro-B Natriuret Pep 25094 H Urine Legionella Ag Negative 01/16/21 06:32 WBC 7.36 RBC 4.13 L Hgb 11.8 L Hct 38.6 L MCV 93.5 MCH 28.6 MCHC 30.6 L RDW 16.5 H Plt Count 207 MPV 10.0 Immature Gran % 0.8 Neutrophils % 70.5 Lymphocytes % 15.9 Monocytes % 11.0 Eosinophils % 1.1 Basophils % 0.7 Nucleated RBC % 0 Absolute Neutrophils 5.19 Absolute Lymphocytes 1.17 L Absolute Monocytes 0.81 H Absolute Eosinophils 0.08 Absolute Basophils 0.05 Sodium Potassium Chloride Carbon Dioxide Anion Gap BUN Creatinine Estimated GFR/1.73 m2 Glucose Calcium NT-Pro-B Natriuret Pep Urine Legionella Ag
[2021-01-16] MEDS: Doxycycline Hyclate 100 MG CAP PO ×2 (11:07→22:21)
[2021-01-16] MEDS: Cefpodoxime 200 MG TAB PO ×2 (11:08→22:21)
--- NOTE | 2021-01-16 12:29 | PT.INTREAT ---
PT Notes Inpatient Physical Therapy Treatment Note [facility] Date: 01/16/21 SUBJECTIVE: Joaquín states that his O2 was low this am and had to be put on oxygen. He reports that he is feeling better compared to yesterday. OBJECTIVE: [] BED MOBILITY/TRANSFERS pt seated in recliner Sit-stand: I Stand-sit: I GAIT Assistive Device: no assistive device Weight bearing: FWB Assist: SBA Distance: 200' Deviation: 2L of O2 supplement. Therapeutic exercise: performed a global LE strength and stabilization routine while seated. See flowsheet for details. ASSESSMENT: tolerated session well. He did have c/o left hip pain during ambulation. Unable to ambulate as far as yesterday due to SOB as well as hip pain. May need to use FWW for a little bit to decrease weight t/o hip as well as energy conservation. PLAN: will continue to progress his strength and functional mobility to tolerance. TREATMENT CODE/TIME: 29 min beginning 1016. [id number], [id number]
[2021-01-16] MEDS: Prazosin 1 MG CAP PO (22:21)
[2021-01-16] MEDS: Enoxaparin 40 MG/0.4 ML SYR SC (22:21)
[2021-01-17] MEDS: Normal Saline Flush 10 ML SYR IVP ×2 (07:55→08:52)
[2021-01-17] MEDS: Furosemide 40 MG/4 ML VIAL IVP ×2 (07:55→08:51)
[2021-01-17] MEDS: Allopurinol 100 MG TAB PO (07:56)
[2021-01-17] MEDS: Pantoprazole 40 MG TABCR PO (07:56)
[2021-01-17] MEDS: guaiFENesin 600 MG TABCR PO (07:56)
[2021-01-17] MEDS: Metoprolol CR 25 MG TABCR 100 MG PO (07:56)
[2021-01-17] MEDS: Atorvastatin 40 MG TAB 80 MG PO (07:56)
[2021-01-17] MEDS: Aspirin E.C. 81 MG TABEC PO (07:56)
[2021-01-17] MEDS: Spironolactone 50 MG TAB PO (07:57)
[2021-01-17] MEDS: Valsartan 40 MG TAB 20 MG PO (07:57)
[2021-01-17] MEDS: Fluticasone NASAL SPRAY 16 GM BTL NS (08:51)
[2021-01-17 09:01] VITALS: BP 140/81; PULSE 69; RESP 18; TEMP 36.4; O2SAT 100
[2021-01-17 09:03] LABS: Anion Gap 2.8 mmol/L (3-11); BUN 49 mg/dL (7-18); CO2 34.2 mmol/L (21.0-32.0); CREATININE 1.4 mg/dL (0.70-1.30); Calcium 8.2 mg/dL (8.5-10.1); Chloride 99 mmol/L (98-107); Estimated GFR 48.76 (mL/min/1.73m2); Glucose 98 mg/dL (74-106); NT-proBNP 12863 pg/mL (<300); Potassium 5.1 mmol/L (3.5-5.1); Sodium 136 mmol/L (136-145)
[2021-01-17 09:29] VITALS: PULSE 72; PULSE 78; RESP 16; O2SAT 87; O2SAT 90
[2021-01-17] MEDS: Doxycycline Hyclate 100 MG CAP PO (10:06)
[2021-01-17] MEDS: Cefpodoxime 200 MG TAB PO (10:06)
--- NOTE | 2021-01-17 10:45 | PT.INTREAT ---
PT Notes Inpatient Physical Therapy Treatment Note [facility] Date: 01/17/21 SUBJECTIVE: Joaquín states that he would like to walk but wants to take his walker as his hips are bothering him today. OBJECTIVE: [] PAIN: c/o bilateral hip discomfort BED MOBILITY/TRANSFERS pt sitting up in recliner Sit-stand: I Stand-sit: I GAIT Assistive Device: FWW Weight bearing: FWB Assist: S Distance: 300' Deviation: 1 L od O2 THEREX: performed a global strength and stabilization routine seated in recliner. See flowsheet for details. Cues required to slow down and focus on controlled mvmt patterns. Also encouraged deep breathing techniques. ASSESSMENT: tolerated session well. Decrease in O2 sats but possible that the sensor not working properly. He denied SOB. PLAN: will continue to progress strength and functional mobility to tolerance following PT POC. TREATMENT CODE/TIME: 25 min beginning at 0900. [id number], [id number]
--- NOTE | 2021-01-17 11:55 | PHA.REVIEW ---
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) (Acute) Acute exacerbation of CHF (congestive heart failure) (Acute) Discharge planning issues (Acute) DVT prophylaxis (Acute) amlodipine Adverse Reaction (Intermediate, Unverified 01/14/21 15:05) Swelling/Edema enalapril maleate [From Vasotec] Adverse Reaction (Intermediate, Unverified 01/14/21 15:05) cough enalaprilat dihydrate [From Vasotec] Adverse Reaction (Intermediate, Unverified 01/14/21 15:05) cough Resuscitation Status DNR/DNI Height 5 ft 6 in Weight 79.3 kg - Renal Dosing Renal Dosing: BUN 49 mg/dL (7-18) H 01/17/21 08:35 Creatinine 1.4 mg/dL (0.70-1.30) H 01/17/21 08:35 - Anticoagulation Anticoagulation: Hgb 11.8 g/dL (13.5-17.5) L 01/16/21 06:32 Hct 38.6 % (40.0-50.0) L 01/16/21 06:32 Plt Count 207 10^3/uL (130-400) 01/16/21 06:32 Creatinine 1.4 mg/dL (0.70-1.30) H 01/17/21 08:35 - Relevant Labs Sodium 136 mmol/L (136-145) 01/17/21 08:35 Potassium 5.1 mmol/L (3.5-5.1) 01/17/21 08:35 Chloride 99 mmol/L (98-107) 01/17/21 08:35 Magnesium 2.2 mg/dL (1.8-2.4) 01/15/21 07:15 - DM Control DM Control: Glucose 98 mg/dL (74-106) 01/17/21 08:35 - Heart Failure/AL Heart Failure/AL: Troponin I < 0.05 ng/mL (<0.06) 01/15/21 07:15 NT-Pro-B Natriuret Pep 95838 pg/mL (<300) H 01/17/21 08:35 - BP Control BP Control: Blood Pressure 140/81
--- NOTE | 2021-01-17 12:10 | W.PM.DS.N ---
Date of service: 01/17/21 Time of Service: 12:11 DS: Diagnosis Discharge Diagnosis (1) Acute exacerbation of CHF (congestive heart failure): Start date: 01/17/21 Start time: 12:11 Status: Acute [place]essment [place] [address], he is not showing signs of volume overload. he was on IVP lasix, spironolactone was added, for co-existence of cirrhosis. Continue 1500 cc/day fluid restriction Rate controlled. Will repeat BMP and BNP on Monday nursing Has f/u appt with PCP in 2 weeks keep appt. (2) Right lower lobe pneumonia: Start date: 01/17/21 Start time: 12:22 Status: Suspected Asessment and Plan: Afebrile, no leukocytosis. Blood cultures negative. 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 (5) Chronic kidney disease: Start date: 01/17/21 Start time: 12:30 Status: Chronic (6) Night terrors: Start date: 01/17/21 Start time: 12:30 Status: Acute Asessment and Plan: Will continue minipress. Discussed with Dr. Casillas Discharge Plan Disposition Patient Disposition: HOME W/HOME HEALTH SERVICE Condition: Stable Discharge Details Reason For Visit: Acute on Chronic Heart failure, pneumonia Admit Date/Time: 01/14/21 20:11 Admit Provider: Mónica Moreno Attending Provider: Mónica Moreno Primary Care Provider: Haily Alvarez [facility] Hospital Course: 80 year old male with PMHx of combined chronic systolic and diastolic CHF with latest EF of 40-45% by echo in 09/2020, as well as pleural effusion and ascites w/ h/o cirrhosis due to DESAI, B carotid stenosis and left carotid occlusion who presented to [facility] ED on 01/14/21 c/o shortness of breath. While his O2 sats were in mid 90s at rest, he did desaturate to the 80s on walking. His ED workup was consistent with an acute exacerbation of his CHF, and he received a dose of lasix 80 mg IV x1 while in the ED. COVID-19 was ruled out. Hospitalist admission was requested. BNP was 25,000 on admission. He was initiated on IVP lasix BID with addition of sprinolacatone for cirrhosis. He was treated with ceftriaxone and doxy for pneumonia while this was not clearly read as such by radiology, the patient did present with a new cough productive of purulent sputum as well as subjective fever. He ruled out for COVID-19. He is suppose to be on oxygen and has qualified every admission, even had oxygen at home but refuses to have it because he states that his house is to small. I have explained the risks of not using oxygen. He states understatement and is still refusing. BC were negative. His BNP is improving. He states he feels well. He does not appear to be volume overloaded. He would like to go home. Therefore he is being discharged home. He did have night terrors here on his first night; grabbing and pulling at nursing, with PTSD reaction. He does not remember these events. He was placed on minipress and has had no further episodes. He will be discharged with nursing. He has a f/u with PCP in 2 weeks he will keep. Repeat BNP and BMP on Monday. He denies CP, SOB. Home Meds and New Rx's Prescriptions: New doxycycline hyclate 100 mg Capsule 100 mg PO Q12H Qty: 6 RF: 0 cefpodoxime 200 mg Tablet 200 mg PO Q12H Qty: 6 RF: 0 prazosin [Minipress] 1 mg Capsule 1 mg PO HS Qty: 20 RF: 0 spironolactone 100 mg tablet 100 mg PO DAILY Qty: 30 RF: 0 Continued nitroglycerin 0.4 MG tablet, sublingual 0.4 mg Sublingual PRN PRNRF: 0 acetaminophen [Tylenol Arthritis Pain] 650 MG tablet extended release 1,300 mg PO Q6H PRN PRNQty: 0 RF: 0 aspirin [Aspir-81] 81 MG tablet,delayed release (DR/EC) 81 mg PO DAILY RF: 0 pantoprazole 40 mg Tablet,Delayed Release (Dr/Ec) 40 mg PO DAILY@0730 Qty: 30 RF: 0 allopurinol 100 MG tablet 100 mg PO DAILY Qty: 0 RF: 0 metoprolol succinate 25 MG tablet extended release 24 hr 100 mg PO DAILY Qty: 0 RF: 0 valsartan [Diovan] 40 mg tablet 20 mg PO BID Qty: 60 RF: 0 atorvastatin 40 mg tablet 80 mg PO DAILY RF: 0 furosemide 40 mg Tablet 40 mg PO BID@0830,1600 Qty: 60 RF: 0 Discharge Instructions Instructions: Heart Failure (DC), Cirrhosis (DC), Community Acquired Pneumonia (DC) Additional Instructions: Weigh yourself daily if you have greater than a 2lb wt gain in 24 hours call your PCP. Take spironolactone and lasix for to help with water retention Stick to a 1500 ml fluid restriction Repeat lab work on Monday Follow up with your PCP as scheduled. Take antibiotics as directed. Activity:: Activity as Tolerated Equipment/Supplies:: No Equipment Needed Diet:: Fluid restriction Discharge Orders Discharge Orders: Discharge Order (Routine); Ordered 01/17/21 Ordered By: Loren Degroot Other Ambulatory Orders: Basic Metabolic Panel (Routine) Location: None Selected Ordered By: Loren Degroot NT-proBNP (Routine) Location: None Selected Ordered By: Loren Degroot DS: Summary Time Spent with Patient providing and/or coordinating discharge services: Greater than 30 minutes Status at Discharge Functional status at discharge: independent ambulation Overall status at discharge: patient is back to baseline Mental Status: mental status grossly normal Speech and Movement: speech and movement normal Mood: congruent mood Affect: normal affect Exam Narrative Exam Narrative: General: Pleasant elderly male sitting up in chair. Neurological: A&Ox3, baseline speech impediment, no focal deficits Psychiatric: Appropriate speech pattern/content Skin: bruise to right costal area of his back from fall prio to admission HEENT:Atraumatic, normocephalic, OEMI, MMM, clear oropharynx, no submandibular or cervical lymphadenopathy, no goiter or JVD Cardiovascular: RRR with several extra beat, no m/r/g Lungs: breath sounds diminshed Gastrointestinal: soft, nontender, nondistended Extremities: +1 edema BLE's, symmetric, +1 pedal pulses B Psych Mental Status: mental status grossly normal Speech and Movement: speech and movement normal Mood: congruent mood Affect: normal affect DS: Data Vitals/I&O Vitals and I&O: Vital Signs Temperature 36.4 C L 01/17/21 09:01 Temperature Source Tympanic 01/17/21 09:01 Pulse 69 01/17/21 09:01 Pulse Rhythm Regular 01/17/21 08:30 Pulse 76 01/14/21 20:02 Respiratory Rate 18 01/17/21 09:01 Respiratory Effort Non-Labored 01/17/21 08:30 Respiratory Depth Normal 01/17/21 08:30 Respiratory Pattern Normal 01/17/21 08:30 Blood Pressure 140/81 01/17/21 09:01 Blood Pressure Mean 94 01/14/21 20:46 Pulse Oximetry 100 01/17/21 09:01 Oxygen Delivery Method Nasal Cannula 01/17/21 09:01 Oxygen Flow Rate 2 01/17/21 09:01 Pain Level 0 01/17/21 09:01 Intake & Output 01/16/21 01/17/21 01/17/21 23:59 11:59 23:59 Intake Total 767 / 1387 640 / 640 Output Total 400 / 1200 550 / 550 Balance 367 / 187 90 / 90 Weight 79.3 kg Intake: IV Oral 757 / 1277 640 / 640 Output: Urine 400 / 1200 550 / 550 Other: Urine Color Yellow Yellow Urine Appearance Clear Clear Urine Odor None Comment voided in toilet Stool Size Small Stool Characteristics Soft Voiding Methods Toilet Toilet Data Completed and Pending Completed studies during hospitalization [Text1]: Exam(s) XR PORTABLE CHEST AP EXAM: XR PORTABLE CHEST AP CLINICAL HISTORY: sob/cough TECHNIQUE: 2D digital imaging was performed. COMPARISON: CT CT CHEST PE CTA from 12/20/2020 CR,XR XR CHEST 2V PA LATERAL from 12/20/2020 FINDINGS: The heart is enlarged and the aorta is tortuous, unchanged. There has been mild interval increase in size of previously noted right loculated pleural effusion. No new abnormalities are seen. IMPRESSION: Mild interval increase in size of right pleural effusion. : 1940ge: 80 Exam(s) PROCEDURE INFORMATION: Exam: XR Chest Exam date and time: 01/14/2021 4:14 PM Age: 80 years old Clinical indication: Cough and other: SOB TECHNIQUE: Imaging protocol: XR of the chest. Views: 1 view. COMPARISON: CR XR CHEST 2V PA LATERAL 12/20/2020 8:14 PM FINDINGS: Lungs: Patchy opacification in the right base is seen. It could represent consolidation and/or atelectasis. Pleural spaces: There is of small to moderate right pleural effusion again seen. Heart/Mediastinum: Unremarkable. No cardiomegaly. Bones/joints: Unremarkable. IMPRESSION: Persistent right basilar effusion and associated collapse/consolidation Labs on day of discharge: Labs from last 24 hours 01/17/21 08:35 Sodium 136 Potassium 5.1 Chloride 99 Carbon Dioxide 34.2 H Anion Gap 2.8 L BUN 49 H Creatinine 1.4 H Estimated GFR/1.73 m2 48.76 Glucose 98 Calcium 8.2 L NT-Pro-B Natriuret Pep 61940 H Preliminary micro results at discharge 01/15/21 07:25 Blood Culture - Preliminary Blood NO GROWTH 48 HOURS 01/15/21 07:15 Blood Culture - Preliminary Blood NO GROWTH 48 HOURS 01/15/21 07:45 Sputum Culture - Preliminary Sputum - Expectorated Normal Trish [facility] Active Problem List (Updated 01/17/21 @ 12:29 by Loren Degroot NP) Night terrors (Acute) 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) CHF (congestive heart failure) (Chronic) Dyspnea (Acute) CHF (congestive heart failure) (Chronic) Acute exacerbation of CHF (congestive heart failure) (Acute) Pleural effusion (Acute) Anasarca (Acute) Dizziness (Acute) Dizziness (Acute) Congestive heart failure (Chronic) Contusion of hand, left (Acute) Contusion of hip, left (Acute) Mild dehydration (Acute) Fracture of triquetral bone of left wrist (Acute) Carotid stenosis, right (Acute) Acute exacerbation of CHF (congestive heart failure) (Acute) Dysphasia (Acute) Internal carotid artery occlusion (Acute) Acute kidney injury superimposed on chronic kidney disease (Acute) Dysarthria (Acute) Abdominal pain (Acute) Shortness of breath (Acute) Dizziness (Acute) Pleural effusion on right (Chronic) Palpitations (Acute) Calcific tendinitis of right shoulder (Acute) Cervical spinal stenosis (Acute) Palliative care patient (Chronic) DNI (do not intubate) (Acute) DNR (do not resuscitate) (Acute) POLST (Physician Orders for Life-Sustaining Treatment) (Acute) Hypoxia (Chronic) Right shoulder pain (Acute) At risk for aspiration (Acute) Weakness generalized (Acute) Acute hypernatremia (Acute) Mental status, decreased (Acute) Discharge planning issues (Acute) DVT prophylaxis (Acute) Bladder neck contracture (Acute) Prostate cancer (Chronic) Chronic kidney disease (Chronic) Hypercholesterolemia (Chronic) Hypertension (Chronic) CAD (coronary artery disease) (Chronic) Ischemic cardiomyopathy (Chronic) Heart failure, chronic, with acute decompensation (Acute 12/31/12) Bladder outlet obstruction (Chronic) Medical History (Updated 01/17/21 @ 12:29 by Loren Degroot NP) Ascites CHF (congestive heart failure) Combined systolic/diastolic, EF 50% by echo in 03/19 Chronic shortness of breath Cirrhosis DESAI (nonalcoholic steatohepatitis) Pleural effusion, right Surgical History History of heart artery stent S/P prostatectomy Status post THR (total hip replacement) Family History Son No problems noted. Social History Smoking/Tobacco Use Status: Never Smoking risk assessment performed?: Yes Alcohol Intake: former Drug use: Never Substance use type: does not use Caregiver/Support person: Yes Communication Needs: Hard of Hearing and Corrective Lenses Education Level: high school Do you need help understanding health information?: Always Current gender identity: male How often do you talk on the phone with friends or family?: three or more times per week How often do you get together with friends or relatives?: three or more times per week Panel score (0-1 are the most socially isolated patients): 1 What type of physical activity do you participate in: walking Duration: 15-30 minutes/day Special deanna needs: No Seatbelt use: always Do you feel safe at home: Yes Do you feel safe in your relationship?: Yes Additional Social history: Son Berto is his main person who helps care for him. He is a , but was posted in [place] during the [employer] era. He has insurance with both medicare and [employer].
--- NOTE | 2021-01-17 12:56 | PDOC.HHF2F_ITS ---
Home Health Certification Home Health Certification: 1. Encounter Date and Reason I certify that Joaquín Yuan was seen by Loren Degroot on 01/17/21 and that I had a [id number] encounter with this patient that meets the physician face to face encounter requirements. 2. Clinical Findings Supporting Skilled Need and Homebound Status I certify that home health services are medically necessary, include either intermittent intermediate and/or physical/speech therapy, and that this patient is homebound in that absences from the home require considerable and taxing effort and are infrequent or of short duration, or are attributable to the need to receive medical care. [X] (a) Attached documentation from encounter provides clinical findings supporting skilled need and homebound status (including what assistance patient requires to leave the home). The encounter with the patient was in whole, or in part, for the following medical condition, which is the primary reason for home health care: Acute on Chronic Heart failure, pneumonia Long Term: Patient would benefit from nursing to help with daily wts, medication administration, adls, etc. Homebound: Unable to leave home without assistance. 3. Certification and Authentication I certify that I composed the above information based on my clinical judgement relating to this patient's medical condition and, if applicable, clinical findings communicated to me by the NPP or inpatient physician who performed the Home Health Referral. All further orders will be obtained through ____Haily Alvarez___(Community Based Physician - PCP)
--- NOTE | 2021-01-17 14:05 | PDOC.CMDIS ---
- If Service Date Differs Date of service: 01/17/21 Time of Service: 14:05 LACE Index Scoring Tool - Questions: Length of Stay (in days): 3 Acuity (Admit via E.D.?): Yes Comorbidities: Congestive Heart Failure, Liver or Renal Disease E.D. Visits: 14 - Answers: Total Score: 15 Risk of Readmission: High Risk Care Management Discharge Reason for Hospitalization: SOB, Pneumonia Discharge Plan: Joaquín returned home today with new orders for HH RN. His son drove him home via private vehicle. He will follow up with his PCP and discharge plan of care. He is happy to be going home. Patient/Family Education Needs: Review discharge instructions regarding medications and limitations, discussion of self care needs including ask me three. Services Needed at Discharge: Home Health Care Services
[2021-01-17 16:14] LABS: Streptococcus Pneumoniae Ag, U Negative (Negative)
--- NOTE | 2021-01-18 11:54 | PT.INDS ---
Date of service: 01/18/21 Time of Service: 11:55 PT Notes Visit Reasons: Acute on Chronic Heart failure, pneumonia Physical Therapy Inpatient Discharge Summary Date: 01/18/2021 Dates of service: 01/15/2021 through 01/17/2021 This is a clinical summary of care provided for the duration of dates listed above. No charge was made in the completion of this documentation. Referring Doctor: Mónica Moreno MD PT Orders: PT CONSULT: Limited ability Precautions: Fall. Standard. Activity as tolerated. Patient Profile/Admitting Diagnosis: Joaquín is a 80-year-old male who presented to the ED on 01/14/2021 due to acute on chronic shortness of breath, runny nose, and slight productive cough. He tested negative for COVID-19 infection. Patient is diagnosed with acute on chronic congestive heart failure, right lower lobe pneumonia, liver cirrhosis secondary to DESAI, and pleural effusion. 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) (Acute) CHF (congestive heart failure) (Chronic) Dyspnea (Acute) CHF (congestive heart failure) (Chronic) Acute exacerbation of CHF (congestive heart failure) (Acute) Pleural effusion (Acute) Anasarca (Acute) Dizziness (Acute) Dizziness (Acute) Congestive heart failure (Chronic) Contusion of hand, left (Acute) Contusion of hip, left (Acute) Mild dehydration (Acute) Fracture of triquetral bone of left wrist (Acute) Carotid stenosis, right (Acute) Acute exacerbation of CHF (congestive heart failure) (Acute) Dysphasia (Acute) Internal carotid artery occlusion (Acute) Acute kidney injury superimposed on chronic kidney disease (Acute) Dysarthria (Acute) Abdominal pain (Acute) Shortness of breath (Acute) Dizziness (Acute) Pleural effusion on right (Chronic) Palpitations (Acute) Calcific tendinitis of right shoulder (Acute) Cervical spinal stenosis (Acute) Palliative care patient (Chronic) DNI (do not intubate) (Acute) DNR (do not resuscitate) (Acute) POLST (Physician Orders for Life-Sustaining Treatment) (Acute) Hypoxia (Chronic) Right shoulder pain (Acute) At risk for aspiration (Acute) Weakness generalized (Acute) Acute hypernatremia (Acute) Mental status, decreased (Acute) Discharge planning issues (Acute) DVT prophylaxis (Acute) Bladder neck contracture (Acute) Prostate cancer (Chronic) Chronic kidney disease (Chronic) Hypercholesterolemia (Chronic) Hypertension (Chronic) CAD (coronary artery disease) (Chronic) Ischemic cardiomyopathy (Chronic) Heart failure, chronic, with acute decompensation (Acute 12/31/12) Bladder outlet obstruction (Chronic) Medical History (Updated 01/15/21 @ 03:30 by Mónica Moreno MD) Ascites CHF (congestive heart failure) Combined systolic/diastolic, EF 50% by echo in 03/19 Chronic shortness of breath Cirrhosis DESAI (nonalcoholic steatohepatitis) Pleural effusion, right Surgical History History of heart artery stent S/P prostatectomy Status post THR (total hip replacement) Social History/Home Situation: Lives alone in a private home with 3 steps to enter with rails on both sides. Equipment Owned/DME: Front-wheeled walker, SPC Subjective: NT. See most recent [employer] notes. Objective: General Observation: NT. See most recent [employer] notes. Mental Status: NT. See most recent [employer] notes. Home Pain: NT. See most recent [employer]TAIN notes. ROM: Right Upper Extremity: Shoulder Flexion WFL. Shoulder abduction WFL. Elbow flexion WFL. Wrist flexion WFL. Functional opening and closing of hand WFL. Left Upper Extremity: Shoulder Flexion WFL. Shoulder abduction WFL. Elbow flexion WFL. Wrist flexion WFL. Functional opening and closing of hand WFL. Right Lower Extremity: Hip flexion WFL. Hip abduction WFL. Knee flexion WFL. Ankle dorsiflexion WFL. Ankle plantarflexion WFL. Left Lower Extremity: Hip flexion WFL. Hip abduction WFL. Knee flexion WFL. Ankle dorsiflexion WFL. Ankle plantarflexion WFL. Strength: Right Upper Extremity: Shoulder flexors 4/5. Shoulder abductors 4/5. Elbow flexors 4/5. Elbow extensors 4/5. [employer]ator strong. Left Upper Extremity: Shoulder flexors 4/5. Shoulder abductors 4/5. Elbow flexors 4/5. Elbow extensors 4/5. Pipe [employer] Fabricator strong. Right Lower Extremity: Hip flexors 4/5. Hip abductors 4/5. Knee flexors 4/5. Knee extensors 4/5. Ankle dorsiflexors 4/5. Ankle plantarflexors 5/5. Left Lower Extremity: Hip flexors 4/5. Hip abductors 4/5. Knee flexors 4/5. Knee extensors 4/5. Ankle dorsiflexors 4/5. Ankle plantarflexors 4/5. Sensation: Intact as to pain and pressure on bilateral upper and lower extremities. Bed Mobility/Transfers: Sit to stand independent Stand to sit independent Bed to chair independent Chair to bed independent Gait: Guided patient ambulation of 300 feet using front-wheeled walker with no complaints of SOB requiring only supervision. No LOB. No complaints of dizziness nor chest pain. Balance: Static Sitting: Normal Dynamic Sitting: Normal Static Standing: Good Dynamic Standing: Good 4-Stage Balance Test: Able to hold feet together 4/10 but is unable to do so with semitandem, full tandem and 1 legged stance indicating falls. Assessment: Joaquín will require services to address deconditioning from admitting diagnoses. He will also benefit from short-term balance training and mobility progression to independent ambulation without an assistive device. Patient presents with clinical signs and symptoms consistent with current/admitting diagnoses that have resulted to mobility limitations, generalized weakness, and overall ADL decline as demonstrated by the following impairment level findings: 1. Decreased strength to B UE/LE major muscle groups 2. Impaired standing balance 3. Impaired activity tolerance Impairments are contributing to the following functional limitations: 1. Difficulty with ambulation without assistive device 2. Increased completion time for mobility ADL performance 3. Increased risk for falls 4. Difficulty with managing steps alone safely Goals: Goals X1 week 1. Supine-Sit independent MET 2. Sit-Supine independent MET 3. Sit-Stand independent MET 4. Stand-Sit independent MET 5. Bed-Chair independent MET 6. Chair-Bed independent MET 7. Independent gait on level surface with use of no AD for at least 300 feet without report of pain nor dyspnea MET 8. Independent stair negotiation while holding onto bilateral rails for at least 5 steps without report of pain nor dyspnea MET DISCHARGE RECOMMENDATIONS: [] Home with no services [] [X] Home with HH PT services to progress mobility level using least restrictive assistive ambulatory device, assess home safety, identify additional equipment needs, and establish a functional maintenance program that will increase ability of patient to remain at home. [] Home with outpatient PT [] [] SNF for continued rehabilitation [] [] [facility] [] [] SNF versus LTC based on ability to participate and progress [] TREATMENT CODE/TIME: NC Thank you for the opportunity to participate in the care of this patient. Krystin Serna PT, DPT, CLT [facility] [place], [place]
== END 2021-01-17 13:41 | disposition home health service (06) | DRG 291 ==
LOC: ER 20:59 → MS 21:03
PROVIDERS: Nurse Practitioner Family; Admitting Provider Internal Medicine; Emergency Provider Physician Assistant; PCP Nurse Practitioner Family; Visit Provider Internal Medicine
DX: I13.0 Hypertensive heart and chronic kidney disease with heart failure and stage 1 through stage 4 chronic kidney disease, or unspecified chronic kidney disease (principal); I50.43 Acute on chronic combined systolic (congestive) and diastolic (congestive) heart failure; J18.9 Pneumonia, unspecified organism; K75.81 Nonalcoholic steatohepatitis (NASH); N18.31 Chronic kidney disease, stage 3a; Z20.822 Contact with and (suspected) exposure to COVID-19; K74.69 Other cirrhosis of liver; Z66 Do not resuscitate; N32.0 Bladder-neck obstruction; I25.5 Ischemic cardiomyopathy; E78.00 Pure hypercholesterolemia, unspecified; C61 Malignant neoplasm of prostate; R09.02 Hypoxemia; M48.02 Spinal stenosis, cervical region; I65.21 Occlusion and stenosis of right carotid artery; F51.4 Sleep terrors [night terrors]; F43.10 Post-traumatic stress disorder, unspecified
CPT/HCPCS: 36410; 36415; 80048; 80053; 84145; 85027; 87040; 87449; 87635; 93005; 94618; 96374; 97110; 97162; 97530; 99285; J1650; 71045; 83735; 83880; 84443; 84484; 85025; 87070; 87205; 87899; 93010; 99223; 99232; 99239; J0696; J1940

== ENCOUNTER 2021-01-22 16:44 | Outpatient (REF) | payer MEDICARE, OTHER, SELFPAY ==
[2021-01-22 17:13] LABS: Abs Immature Grans 0.03 10^3/uL (0.0-0.06); Absolute Basophil Count 0.05 10^3/uL (0.0-0.2); Absolute Eosinophil Count 0.13 10^3/uL (0.0-0.7); Absolute Lymphocyte Count 1.11 10^3/uL (1.2-3.4); Absolute Monocyte Count 0.91 10^3/uL (0.1-0.8); Absolute Neutrophil Count 5.06 10^3/uL (1.2-6.7); Basophils % 0.7; Eosinophils % 1.8; HCT 39.1 % (40.0-50.0); HGB 11.9 g/dL (13.5-17.5); Immature Grans % 0.4; Lymphocytes % 15.2; MCH 28.4 pg (27.0-33.0); MCHC 30.4 % (32.0-36.0); MCV 93.3 fL (80-95); MPV 9.9 fL (8.0-11.0); Monocytes % 12.5; Neutrophils % 69.4; Nucleated RBC 0 %; Platelet Count 265 10^3/uL (130-400); RBC 4.19 10^6/uL (4.36-5.78); RDW 16.8 % (11.8-14.1); RDW-SD 57.3 fL; WBC 7.29 10^3/uL (4.4-10.8)
[2021-01-22 17:25] LABS: Anion Gap 5.1 mmol/L (3-11); BUN 59 mg/dL (7-18); CO2 33.9 mmol/L (21.0-32.0); CREATININE 1.6 mg/dL (0.70-1.30); Calcium 8.7 mg/dL (8.5-10.1); Chloride 100 mmol/L (98-107); Glucose 116 mg/dL (74-106); Potassium 5.5 mmol/L (3.5-5.1); Sodium 139 mmol/L (136-145)
== END 2021-01-22 16:45 | disposition home or self-care (01) ==
LOC: NCHCN 16:44
PROVIDERS: PCP Nurse Practitioner Family; Visit Provider Family Medicine
DX: I10 Essential (primary) hypertension (principal); N18.30 Chronic kidney disease, stage 3 unspecified; I50.9 Heart failure, unspecified
CPT/HCPCS: 80048; 85025

== ENCOUNTER 2021-03-01 16:31 | Outpatient (REF) | payer MEDICARE, OTHER, SELFPAY ==
[2021-03-01 15:50] LABS: BUN 57 mg/dL (7-18); CREATININE 1.5 mg/dL (0.70-1.30); Calcium 9.1 mg/dL (8.5-10.1); Chloride 100 mmol/L (98-107); Estimated GFR 45.03 (mL/min/1.73m2); Glucose 96 mg/dL (74-106); Potassium 4.8 mmol/L (3.5-5.1); Sodium 140 mmol/L (136-145)
== END 2021-03-01 16:32 | disposition home or self-care (01) ==
LOC: NCHCN 16:31
PROVIDERS: PCP Nurse Practitioner Family; Visit Provider Family Medicine
DX: I10 Essential (primary) hypertension (principal); N18.30 Chronic kidney disease, stage 3 unspecified; I50.9 Heart failure, unspecified
CPT/HCPCS: 80048

== ENCOUNTER 2021-03-10 01:00 | Outpatient (CLI) | payer MEDICARE, OTHER, SELFPAY ==
--- NOTE | 2021-03-10 | DI.RAD_ITS ---
Exam(s) XR HIP LT COMPLETE AP PELVIS EXAM: XR HIP LT COMPLETE AP PELVIS CLINICAL HISTORY: LT HIP PAIN, M25.552. TECHNIQUE: 2D digital imaging was performed. COMPARISON: CR XR HIP LT COMPLETE AP PELVIS from 10/14/2020 FINDINGS: Position alignment of the components of the left hip prosthesis remain stable. No fracture or obvious loosening evident. Calcific density lateral to the acetabular component is unchanged. Opposite-right hip appears unremarkable and there no fractures in the pelvis identified. Incidentally noted is vascular calcification in the pelvis. I note that on the prior September 2020 stud y there was oral contrast in the visualized sigmoid and this exhibited extensive sigmoid diverticulos is. IMPRESSION: DATA REPOSITORY: RADIATION DOSE DELIVERED:
--- NOTE | 2021-03-10 10:27 | DI.RAD_ITS ---
Exam(s) XR LUMBAR SPINE COMPLETE EXAM: XR LUMBAR SPINE COMPLETE CLINICAL HISTORY: LOW BACK PAIN, M54.5. TECHNIQUE: 2D digital imaging was performed. COMPARISON: CR LUMBAR SPINE COMPLETE from 04/20/2010 FINDINGS: A left hip prosthesis is again noted in the peripheral aspect of field of view of this lumbar spine s tudy. There is no evidence of compression fracture or listhesis. No pars defects evident. There is modera te disc space narrowing now evident at L5-S1 level, more so than 11 years ago. Other disc spaces exh ibit maintained disc height. Anterior osseous lipping is again noted L3-4 level which may indicate d egenerative disc disease despite normal disc height. Another changed from the prior study is more extensive calcification in the abdominal aorta. Also in the iliac arteries. There appears to be possible aneurysmal dilatation. IMPRESSION: DATA REPOSITORY: RADIATION DOSE DELIVERED:
== END 2021-03-10 01:20 ==
PROVIDERS: PCP Nurse Practitioner Family; Visit Provider Nurse Practitioner Family
DX: M54.50 Low back pain, unspecified (principal); M48.061 Spinal stenosis, lumbar region without neurogenic claudication; M25.552 Pain in left hip; Z96.642 Presence of left artificial hip joint; K57.30 Diverticulosis of large intestine without perforation or abscess without bleeding
CPT/HCPCS: 72110; 73502

== ENCOUNTER 2021-03-10 18:36 | Emergency (ER) | payer MEDICARE, OTHER, SELFPAY ==
[2021-03-10] VITALS (16 sets, daily range): BP systolic 134–152; BP diastolic 73–101; PULSE 63–151; RESP 17–30; TEMP 36.1–36.5; O2SAT 91–97
--- NOTE | 2021-03-10 18:45 | DI.CT_ITS ---
Exam(s) CT ABDOMEN PELVIS W EXAM: CT ABDOMEN PELVIS W CLINICAL HISTORY: LLQ abd Pain. TECHNIQUE: Imaging Protocol: Axial computed tomography images with coronal and sagittal reformatted images were created and reviewed CONTRAST MATERIAL: Intravenous: Omnipaque 350 Contrast volume:99 ml Oral: / no COMPARISON: CT CT ABDOMEN PELVIS WO from 10/13/[address] CHEST PE CTA from 12/17/[address] CHEST PE CTA from 12/20/2020 CR,XR XR CHEST 2V PA LATERAL from 12/20/2020 FINDINGS: There is a moderate-sized right pleural effusion and adjacent atelectasis, similar to previous exams. Heart is markedly enlarged. Coronary artery calcifications are present. Moderate-sized pericardia l effusion also seen. There is a moderate quantity of ascites. The presence of ascites obscures visualization inflammatory changes in the mesenteric fat. There is prominent diverticulosis of the descending and sigmoid colo n. Mild diverticulitis cannot be excluded. There is no evidence of perforation or abscess. There i s no small dilatation. There is motion at the level of the gallbladder. The liver on has a nodular, cirrhotic appearance. No focal liver lesions are seen. Portal vein is patent. Spleen, adrenals and pancreas are unremarka ble. Bilateral renal cysts are noted. No hydronephrosis or stones. The patient is status post pros tatectomy. The urinary bladder is unremarkable. There is a left hip prosthesis. Degenerative smith es are noted in the in the spine. Atherosclerotic changes are present in the aorta. There is minima l dilatation of the distal aorta. Impression: moderate quantity of ascites and cirrhotic liver. Presence of ascites somewhat limits evaluation for diverticulitis. Small sigmoid diverticulitis is not excluded. No perforation or discrete abscess vi sible. Cardiomegaly, pericardial effusion and right pleural effusion. RADIATION DOSE DELIVERED: 1,011.07mGy.cm Total DLP DATA REPOSITORY: All CT scans at this facility are submitted to the National Radiology Data Registry (NRDR) Dose Index Registry (DIR) with the [employer] (A[employer]). RADIATION OPTIMIZATION: All CT scans at this facility use at least one of these dose optimization te chniques: automated exposure control; mA and/or kV adjustment per patient size (includes targeted exa ms where dose is matched to clinical indication); or iterative reconstruction.
--- NOTE | 2021-03-10 18:45 | RT.EKG_ITS ---
APPROVED REPORT Exam: Resting ECG Reason for Exam: tachycardia Patient Location: E HR:74 bpm ECG Measurements Heart Rate 74 AXIS IA 305 P 41 QRSd 147 QRS 17 QT 411 T -30 QTc 463 Conclusion Sinus rhythm...normal P axis, V-rate 60- 99 Multiform ventricular premature complexes...short R-R, variable morphology Prolonged IA interval...IA >220, V-rate 50- 90 Right bundle branch block...QRSd>120, terminal axis(90,270). Sinus. RBBB. PVCs. No STEMI. No significant change from previous EKG.
--- NOTE | 2021-03-10 18:58 | ED.GENADUL_ITS ---
Discharge Plan Disposition Patient Disposition: HOME Condition: Stable Discharge Details Clinical Impression: Diverticulitis Primary Care Provider: Haily Alvarez ED Provider: Kaylin Singh Home Meds and New Rx's Prescriptions: New amoxicillin-pot clavulanate [Augmentin] 875-125 mg tablet 1 tab PO BID 10 Days Qty: 20 RF: 0 Continued nitroglycerin 0.4 MG tablet, sublingual 0.4 mg Sublingual PRN PRNRF: 0 acetaminophen [Tylenol Arthritis Pain] 650 MG tablet extended release 1,300 mg PO Q6H PRN PRNQty: 0 RF: 0 aspirin [Aspir-81] 81 MG tablet,delayed release (DR/EC) 81 mg PO DAILY RF: 0 pantoprazole 40 mg Tablet,Delayed Release (Dr/Ec) 40 mg PO DAILY@0730 Qty: 30 RF: 0 metoprolol succinate 25 MG tablet extended release 24 hr 100 mg PO DAILY Qty: 0 RF: 0 doxycycline hyclate 100 mg Capsule 100 mg PO Q12H Qty: 6 RF: 0 cefpodoxime 200 mg Tablet 200 mg PO Q12H Qty: 6 RF: 0 spironolactone 100 mg tablet 100 mg PO DAILY Qty: 30 RF: 0 eplerenone 25 mg tablet 12.5 mg PO QAM RF: 0 furosemide 40 mg tablet 40 mg PO BID@0830,1200 RF: 0 atorvastatin 40 mg tablet 80 mg PO HS RF: 0 No Action allopurinol 100 MG tablet 100 mg PO DAILY Qty: 0 RF: 0 valsartan [Diovan] 40 mg tablet 20 mg PO BID Qty: 60 RF: 0 prazosin [Minipress] 1 mg Capsule 1 mg PO HS Qty: 20 RF: 0 Discharge Instructions Instructions: Diverticulitis (ED), Diverticulitis Diet (ED) Additional Instructions: Take the antibiotic as directed twice daily. Please eat yogurt or take a probiotic while on the antibiotics. Stay away from anything with seeds. Follow up with primary care provider in 3-5 days. Return to ED sooner if any worsening or concerns. Increase oral fluids. Please take Ibuprofen with food every 4-6 hours as needed for pain and swelling. Referrals: Haily Alvarez [Primary Care Provider] - 5 days Medical Decision Making 80-year-old male presents to the ER chief complaint of left lower quadrant abdominal pain which began 2-1/2 days ago. Patient reports that it is sharp stabbing pain and is intermittent, wakes him up out of sleep. He also endorses some abdominal bloating. He had some x-rays ordered by his PCP and they were done today. He had a L-spine x-ray and a hip x-ray which showed degenerative changes. He denies any nausea vomiting diarrhea. He reports he did have a normal bowel movement today he does take stool softeners on a daily basis. He denies any problems urinating does have a history of a prostatectomy. He denies any chest pain he does endorse some shortness of breath which he reports is at his baseline. He has a past medical history of CHF, carotid stenosis, prostate cancer, high cholesterol, hypertension, cirrhosis, [place], left total hip replacement. He was recently admitted in December for pneumonia. EKG was reviewed by Renae Tapia MD ER attending, please see official report and review. Does have a right bundle branch block and occasional PVCs. Labs ordered including CBC, CMP, troponin, CT abdomen pelvis IV contrast CBC shows no leukocytosis, hemoglobin is 12.8 hematocrit 21.2, CMP largely within normal limits. Urinalysis shows small blood culture is not indicated at this time. CT Abd Pelvis W: FINDINGS: Pleural spaces: There is a moderate right pleural effusion. Liver: The liver has a nodular contour. Gallbladder and bile ducts: Normal. No calcified stones. No ductal dilation. Pancreas: Normal. No ductal dilation. Spleen: Normal. No splenomegaly. Adrenal glands: Normal. No mass. Kidneys and ureters: There are simple appearing cysts in the right kidney. No follow-up necessary. There are simple appearing cysts in the left kidney. No follow-up necessary. Stomach and bowel: There are diverticuli in the sigmoid colon. There is wall thickening of the sigmoid colon with pericolonic inflammatory fat stranding. No dilated loops of bowel to suggest obstruction. Appendix: No evidence of appendicitis. Intraperitoneal space: Moderate volume ascites. No free air. Vasculature: Atherosclerosis. No abdominal aortic aneurysm. Lymph nodes: Unremarkable. No enlarged lymph nodes. Urinary bladder: Unremarkable as visualized. Reproductive: Unremarkable as visualized. Bones/joints: Degenerative changes in the lumbar spine. No acute fracture. Soft tissues: Unremarkable. Other findings: Images are degraded by streak artifact from the patient's arms. IMPRESSION: 1. Sigmoid diverticulitis. No discrete/drainable fluid collection or free air. 2. Moderate volume ascites. Cirrhotic liver morphology. Moderate right pleural effusion. Thank you for allowing us to participate in the care of your patient. Dictated and Authenticated by: Stanley Jackson MD Will discuss CT results with patient and most likely discharged home with oral antibiotics due to no report of nausea vomiting. Augmentin ordered, first dose given here in the department. Discussed home care with patient who verbalizes understanding, discussed strict return instructions. Verbalized understanding. Lab Data Lab results reviewed: Yes I reviewed the patient's lab results. Lab results narrative: Laboratory Tests Range/Units 03/10/21 03/10/21 03/10/21 19:15 19:17 19:17 WBC (4.4-10.8) 10^3/uL 6.92 RBC (4.36-5.78) 10^6/uL 4.34 L Hgb (13.5-17.5) g/dL 12.8 L Hct (40.0-50.0) % 41.2 MCV (80-95) fL 94.9 MCH (27.0-33.0) pg 29.5 MCHC (32.0-36.0) % 31.1 L RDW (11.8-14.1) % 15.7 H Plt Count (130-400) 10^3/uL 281 MPV (8.0-11.0) fL 9.5 Immature Gran % 0.3 Neutrophils % 69.8 Lymphocytes % 17.3 Monocytes % 10.4 Eosinophils % 1.6 Basophils % 0.6 Nucleated RBC % % 0 Absolute Neutrophils (1.2-6.7) 10^3/uL 4.83 Absolute Lymphocytes (1.2-3.4) 10^3/uL 1.20 Absolute Monocytes (0.1-0.8) 10^3/uL 0.72 Absolute Eosinophils (0.0-0.7) 10^3/uL 0.11 Absolute Basophils (0.0-0.2) 10^3/uL 0.04 Sodium (136-145) mmol/L 137 Potassium (3.5-5.1) mmol/L 5.0 Chloride (98-107) mmol/L 99 Carbon Dioxide (21.0-32.0) mmol/L 31.2 Anion Gap (3-11) mmol/L 6.8 BUN (7-18) mg/dL 56 H Creatinine (0.70-1.30) mg/dL 1.3 Estimated GFR/1.73 m2 (mL/min/1.73m2) 53.12 Glucose (74-106) mg/dL 94 Calcium (8.5-10.1) mg/dL 9.1 Magnesium (1.8-2.4) mg/dL 2.1 Total Bilirubin (0.2-1.0) mg/dL 0.9 AST (15-37) U/L 77 H ALT (16-63) U/L 46 Alkaline Phosphatase (46-116) U/L 512 H Troponin I (<or=60) ng/L < 50 Total Protein (6.4-8.2) g/dL 8.1 Albumin (3.4-5.0) g/dL 3.6 Urine Color (Yellow) Yellow Urine Clarity (Clear) Clear Urine pH (5-8) 5.5 Ur Specific [place] (1.005-1.025) 1.020 Urine Protein (Negative) mg/dL 100 H Urine Ketones (Negative) mg/dL Negative Urine Blood (Negative) Small H Urine Nitrite (Negative) Negative Urine Bilirubin (Negative) Negative Urine Urobilinogen (Up TO 0.2) EU/dL 0.2 Ur Leukocyte Esterase (Negative) Negative Urine RBC (0-2) HPF 0-2 Urine WBC (0-5) HPF 0-2 Ur Epithelial Cells (Negative) HPF Negative Urine Crystals (Negative) HPF Few Amorphous Urine Bacteria (Negative) HPF Negative Urine Casts (Negative) LPF 5-10 Fine Granular Urine Mucus (Negative) Negative Urine Other (Negative) Negative Ur Culture Indicated? No Urine Glucose (Negative) mg/dL Negative HPI General Mode of arrival: ambulatory . Date/Time Provider Initiated Documentation: 03/10/21 18:37 . Limitations to Documentation: no limitations and physical limitation (Hard Of hearing) . Information obtained by: patient, RN notes reviewed and old records reviewed . HPI Narrative: 80-year-old male presents to the ER chief complaint of left lower quadrant abdominal pain which began 2-1/2 days ago. Patient reports that it is sharp stabbing pain and is intermittent, wakes him up out of sleep. He also endorses some abdominal bloating. He had some x-rays ordered by his PCP and they were done today. He had a L-spine x-ray and a hip x-ray which showed degenerative changes. He denies any nausea vomiting diarrhea. He reports he did have a normal bowel movement today he does take stool softeners on a daily basis. He denies any problems urinating does have a history of a prostatectomy. He denies any chest pain he does endorse some shortness of breath which he reports is at his baseline. He has a past medical history of CHF, carotid stenosis, prostate cancer, high cholesterol, hypertension, cirrhosis, [place], left total hip replacement. He was recently admitted in December for pneumonia. Related Data Home Medications Medication Instructions Recorded Confirmed nitroglycerin 0.4 mg SUBLINGUAL PRN PRN 12/31/12 03/10/21 acetaminophen [Tylenol Arthritis 1,300 mg PO Q6H PRN PRN #0 01/03/13 03/10/21 Pain] aspirin [Aspir-81] 81 mg PO DAILY 10/28/15 01/14/21 allopurinol 100 mg PO DAILY #0 tab 04/16/20 03/10/21 metoprolol succinate 100 mg PO DAILY #0 tab 04/16/20 03/10/21 pantoprazole 40 mg PO DAILY@0730 #30 tab 04/16/20 03/10/21 atorvastatin 80 mg PO HS 05/05/20 03/10/21 valsartan [Diovan] 20 mg PO BID #60 tab 10/17/20 03/10/21 cefpodoxime 200 mg PO Q12H #6 tab 01/17/21 doxycycline hyclate 100 mg PO Q12H #6 cap 01/17/21 prazosin [Minipress] 1 mg PO HS #20 cap 01/17/21 spironolactone 100 mg PO DAILY #30 tab 01/17/21 amoxicillin-pot clavulanate 1 tab PO BID 10 Days #20 tab 03/10/21 [Augmentin] eplerenone 12.5 mg PO QAM 03/10/21 03/10/21 furosemide 40 mg PO BID@0830,1200 03/10/21 03/10/21 Previous Rx's Medication Instructions Recorded acetaminophen [Tylenol Arthritis 1,300 mg PO Q6H PRN PRN #0 01/03/13 Pain] allopurinol 100 mg PO DAILY #0 tab 04/16/20 metoprolol succinate 100 mg PO DAILY #0 tab 04/16/20 pantoprazole 40 mg PO DAILY@0730 #30 tab 04/16/20 valsartan [Diovan] 20 mg PO BID #60 tab 10/17/20 cefpodoxime 200 mg PO Q12H #6 tab 01/17/21 doxycycline hyclate 100 mg PO Q12H #6 cap 01/17/21 prazosin [Minipress] 1 mg PO HS #20 cap 01/17/21 spironolactone 100 mg PO DAILY #30 tab 01/17/21 amoxicillin-pot clavulanate 1 tab PO BID 10 Days #20 tab 03/10/21 [Augmentin] Allergies Allergy/AdvReac Type Severity Reaction Status Date / Time amlodipine AdvReac Intermediate Swelling/Ed Unverified 03/10/21 20:02 lottie enalapril maleate AdvReac Intermediate cough Unverified 03/10/21 20:02 [From Vasotec] enalaprilat dihydrate AdvReac Intermediate cough Unverified 03/10/21 20:02 [From Vasotec] spironolactone AdvReac Unknown Other (See Unverified 03/10/21 20:02 Comment) General Stated Complaint: Abd Prob RUPESH: 3 Review of Systems All systems reviewed & are unremarkable except as noted in HPI and below Constitutional Constitutional: Denies fever(s), Denies headache(s) and Denies weakness ENT Ears, Nose, Mouth, and Throat: Denies headache(s) Cardiovascular Cardiovascular: Denies chest pain Respiratory Respiratory: Reports as per HPI Gastrointestinal Gastrointestinal: Reports abdominal pain, Reports bloating, Denies change in bowel habits, Denies loose stools, Denies nausea and Denies vomiting Genitourinary Genitourinary: Denies difficulty urinating and Denies dysuria Neurologic Neurologic: Denies headache(s) and Denies weakness PFSH All Active Problems (Updated 03/10/21 @ 20:15 by Kaylin Singh) Diverticulitis (Chronic) Night terrors (Acute) 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) CHF (congestive heart failure) (Chronic) Dyspnea (Acute) CHF (congestive heart failure) (Chronic) Acute exacerbation of CHF (congestive heart failure) (Acute) Pleural effusion (Acute) Anasarca (Acute) Dizziness (Acute) Dizziness (Acute) Congestive heart failure (Chronic) Contusion of hand, left (Acute) Contusion of hip, left (Acute) Mild dehydration (Acute) Fracture of triquetral bone of left wrist (Acute) Carotid stenosis, right (Acute) Acute exacerbation of CHF (congestive heart failure) (Acute) Dysphasia (Acute) Internal carotid artery occlusion (Acute) LEFT Acute kidney injury superimposed on chronic kidney disease (Acute) Dysarthria (Acute) Abdominal pain (Acute) Shortness of breath (Acute) Dizziness (Acute) Pleural effusion on right (Chronic) Palpitations (Acute) Calcific tendinitis of right shoulder (Acute) Cervical spinal stenosis (Acute) Palliative care patient (Chronic) DNI (do not intubate) (Acute) DNR (do not resuscitate) (Acute) POLST (Physician Orders for Life-Sustaining Treatment) (Acute) Hypoxia (Chronic) Right shoulder pain (Acute) At risk for aspiration (Acute) Weakness generalized (Acute) Acute hypernatremia (Acute) Mental status, decreased (Acute) Discharge planning issues (Acute) DVT prophylaxis (Acute) Bladder neck contracture (Acute) Prostate cancer (Chronic) Chronic kidney disease (Chronic) Hypercholesterolemia (Chronic) Hypertension (Chronic) CAD (coronary artery disease) (Chronic) Ischemic cardiomyopathy (Chronic) Heart failure, chronic, with acute decompensation (Acute 12/31/12) Bladder outlet obstruction (Chronic) Medical History Ascites CHF (congestive heart failure) Combined systolic/diastolic, EF 50% by echo in 03/19 Chronic shortness of breath Cirrhosis LIMA (nonalcoholic steatohepatitis) Pleural effusion, right Surgical History History of heart artery stent S/P prostatectomy Status post THR (total hip replacement) Family History Son No problems noted. Social History Smoking/Tobacco Use Status: Never Smoking risk assessment performed?: Yes Alcohol Intake: former Drug use: Never Substance use type: does not use Caregiver/Support person: Yes Communication Needs: Hard of Hearing and Corrective Lenses Education Level: high school Do you need help understanding health information?: Always Current gender identity: male How often do you talk on the phone with friends or family?: three or more times per week How often do you get together with friends or relatives?: three or more times per week Panel score (0-1 are the most socially isolated patients): 1 What type of physical activity do you participate in: walking Duration: 15-30 minutes/day Special deanna needs: No Seatbelt use: always Do you feel safe at home: Yes Do you feel safe in your relationship?: Yes Additional Social history: Son Berto is his main person who helps care for him. He is a , but was posted in [place] during the [employer] era. He has insurance with both medicare and [employer]. Exam Narrative Exam Narrative: Constitutional: Alert and oriented x3. Appears stated age. Normal body habitus. Head: Normocephalic, no trauma. Eyes: Pupils PERRL, Red reflex noted, EOM's intact. Eyelids symmetrical without lesions, discharge, or swelling. ENT: Bilateral TM's WNL, External ear normal to inspection, no mastoid TTP, swelling, or erythema, Nasal turbinates WNL, no nasal discharge. Normal dentition, Posterior pharynx WNL, no exudate. Chest: RRR, Normal S1, S2, distal pulses intact. Resp: Lungs clear to auscultation bilaterally, no wheezes, rales, or rhonchi. Abdomen: Soft, non-distended, Normoactive bowel sounds all 4 quads. Musculoskeletal: Normal gait, 5/5 strength to all four extremities. Skin: No suspicious rashes or lesions. Capillary refill less than 2 sec. Neurologic: Cranial nerves II-XII intact. Alert and oriented x 3. Motor: No deficits noted. Sensory: Intact bilaterally all 4 extremities. Reflexes: DTR's intact bilaterally.. Hematologic/Lymphatic: No ecchymosis, no lymphadenopathy. Course Vital Signs Vital signs: Vital Signs Temperature 36.1 C L 03/10/21 18:40 Pulse 80 03/10/21 18:40 Respiratory Rate 18 03/10/21 18:40 Blood Pressure 148/101 H 03/10/21 18:40 Pulse Oximetry 92 03/10/21 18:40 Temperature 36.1 C L 03/10/21 18:40 Temperature Source Skin 03/10/21 18:40 Pulse 80 03/10/21 18:40 Respiratory Rate 18 03/10/21 18:40 Respiratory Effort Incrsd Work of Breathing 03/10/21 18:50 Blood Pressure 148/101 H 03/10/21 18:40 Pulse Oximetry 94 03/10/21 18:49 Oxygen Delivery Method Nasal Cannula 03/10/21 18:49 Oxygen Flow Rate 1 03/10/21 18:49 Pain Level 9 03/10/21 18:40 Comment 03/10/21 18:40
[2021-03-10 19:22] LABS: Bilirubin Negative (Negative); Blood Small (Negative); Clarity Clear (Clear); Glucose Negative (Negative); Ketones Negative (Negative); Leukocyte Esterase Negative (Negative); Nitrite Negative (Negative); Urobilinogen 0.2 EU/dL (Up TO 0.2); pH 5.5 (5-8)
[2021-03-10 19:28] LABS: Bacteria Negative HPF (Negative); Crystals Few Amorphous HPF (Negative); Epithelial Cells Negative HPF (Negative); Other Cells Negative (Negative); RBC 0-2 HPF (0-2); WBC 0-2 HPF (0-5)
[2021-03-10 19:29] LABS: C & S Indicated? No; Mucus Negative (Negative)
[2021-03-10 19:30] LABS: Abs Immature Grans 0.02 10^3/uL (0.0-0.06); Absolute Basophil Count 0.04 10^3/uL (0.0-0.2); Absolute Eosinophil Count 0.11 10^3/uL (0.0-0.7); Absolute Monocyte Count 0.72 10^3/uL (0.1-0.8); Absolute Neutrophil Count 4.83 10^3/uL (1.2-6.7); Basophils % 0.6; Eosinophils % 1.6; HCT 41.2 % (40.0-50.0); HGB 12.8 g/dL (13.5-17.5); Immature Grans % 0.3; Lymphocytes % 17.3; MCH 29.5 pg (27.0-33.0); MCHC 31.1 % (32.0-36.0); MCV 94.9 fL (80-95); MPV 9.5 fL (8.0-11.0); Monocytes % 10.4; Neutrophils % 69.8; Nucleated RBC 0 %; Platelet Count 281 10^3/uL (130-400); RBC 4.34 10^6/uL (4.36-5.78); RDW 15.7 % (11.8-14.1); RDW-SD 54.8 fL; WBC 6.92 10^3/uL (4.4-10.8)
[2021-03-10] MEDS: Omnipaque 350 MG/ML 100 ML BTL IJ (19:41)
[2021-03-10 19:58] LABS: ALT 46 U/L (16-63); AST 77 U/L (15-37); Albumin 3.6 g/dL (3.4-5.0); Alkaline Phosphatase 512 U/L (46-116); Anion Gap 6.8 mmol/L (3-11); BUN 56 mg/dL (7-18); Bilirubin, Total 0.9 mg/dL (0.2-1.0); CO2 31.2 mmol/L (21.0-32.0); CREATININE 1.3 mg/dL (0.70-1.30); Calcium 9.1 mg/dL (8.5-10.1); Chloride 99 mmol/L (98-107); Estimated GFR 53.12 (mL/min/1.73m2); Glucose 94 mg/dL (74-106); Magnesium 2.1 mg/dL (1.8-2.4); Sodium 137 mmol/L (136-145); Total Protein 8.1 g/dL (6.4-8.2); Troponin I < 50 ng/L (<or=60)
--- NOTE | 2021-03-10 20:04 | DI.VRAD_ITS ---
PROCEDURE INFORMATION: Exam: CT Abdomen And Pelvis With Contrast Exam date and time: 03/10/2021 6:49 PM Age: 80 years old Clinical indication: Other: Llq abd pain; Patient HX: Prior prostatectomy, heart failure TECHNIQUE: Imaging protocol: Computed tomography of the abdomen and pelvis with contrast. Total images: 1197 COMPARISON: CT ABDOMEN PELVIS WO 10/13/2020 9:38 AM FINDINGS: Pleural spaces: There is a moderate right pleural effusion. Liver: The liver has a nodular contour. Gallbladder and bile ducts: Normal. No calcified stones. No ductal dilation. Pancreas: Normal. No ductal dilation. Spleen: Normal. No splenomegaly. Adrenal glands: Normal. No mass. Kidneys and ureters: There are simple appearing cysts in the right kidney. No follow-up necessary. There are simple appearing cysts in the left kidney. No follow-up necessary. Stomach and bowel: There are diverticuli in the sigmoid colon. There is wall thickening of the sigmoid colon with pericolonic inflammatory fat stranding. No dilated loops of bowel to suggest obstruction. Appendix: No evidence of appendicitis. Intraperitoneal space: Moderate volume ascites. No free air. Vasculature: Atherosclerosis. No abdominal aortic aneurysm. Lymph nodes: Unremarkable. No enlarged lymph nodes. Urinary bladder: Unremarkable as visualized. Reproductive: Unremarkable as visualized. Bones/joints: Degenerative changes in the lumbar spine. No acute fracture. Soft tissues: Unremarkable. Other findings: Images are degraded by streak artifact from the patient's arms. IMPRESSION: 1. Sigmoid diverticulitis. No discrete/drainable fluid collection or free air. 2. Moderate volume ascites. Cirrhotic liver morphology. Moderate right pleural effusion. Dictated and Authenticated by: Stanley Jackson MD. Ordering:LUIS Ewing MD
[2021-03-10] MEDS: Amox. 875/Clav. 125, 2 TABS/BTL 1 TAB PO (20:21)
[2021-03-10] MEDS: Amoxicillin 875/Clav. 125 TAB PO (20:21)
== END 2021-03-10 20:33 | disposition home or self-care (01) ==
PROVIDERS: Emergency Provider Registered Nurse Emergency; PCP Nurse Practitioner Family
DX: K57.92 Diverticulitis of intestine, part unspecified, without perforation or abscess without bleeding (principal); I45.10 Unspecified right bundle-branch block; R00.0 Tachycardia, unspecified; R10.32 Left lower quadrant pain
CPT/HCPCS: 36415; 80053; 93005; 99285; 72110; 73502; 74177; 81003; 81015; 83735; 84484; 85025; 93010; 99283; J3490

== ENCOUNTER 2021-08-10 15:06 | Outpatient (REF) | payer MEDICARE, OTHER, SELFPAY ==
[2021-08-10 15:10] LABS: HCT 38.2 % (40.0-50.0); HGB 12.4 g/dL (13.5-17.5); MCH 31.3 pg (27.0-33.0); MCHC 32.5 % (32.0-36.0); MCV 97 fL (80-95); MPV 9.8 fL (8.0-11.0); Platelet Count 308 10^3/uL (130-400); RBC 3.96 10^6/uL (4.36-5.78); RDW 14.1 % (11.8-14.1); RDW-SD 50.4 fL; WBC 6.09 10^3/uL (4.4-10.8)
[2021-08-10 15:33] LABS: ALT 62 U/L (16-63); AST 113 U/L (15-37); Albumin 2.8 g/dL (3.4-5.0); Alkaline Phosphatase 515 U/L (46-116); Anion Gap 4.4 mmol/L (3-11); BUN 35 mg/dL (7-18); Bilirubin, Total 0.7 mg/dL (0.2-1.0); CO2 33.6 mmol/L (21.0-32.0); CREATININE 1.2 mg/dL (0.70-1.30); Calcium 8.7 mg/dL (8.5-10.1); Chloride 100 mmol/L (98-107); Estimated GFR 58.26 (mL/min/1.73m2); Glucose 85 mg/dL (74-106); Potassium 4.6 mmol/L (3.5-5.1); Sodium 138 mmol/L (136-145); Total Protein 7.1 g/dL (6.4-8.2)
== END 2021-08-10 15:07 | disposition home or self-care (01) ==
LOC: NCHCN 15:06
PROVIDERS: PCP Nurse Practitioner Family; Visit Provider Family Medicine
DX: K70.30 Alcoholic cirrhosis of liver without ascites (principal); I50.9 Heart failure, unspecified; N18.30 Chronic kidney disease, stage 3 unspecified
CPT/HCPCS: 80053; 85027

== ENCOUNTER 2021-08-31 13:45 | Emergency (ER) | payer MEDICARE, OTHER, SELFPAY ==
[2021-08-31] VITALS (125 sets, daily range): BP systolic 145–169; BP diastolic 78–89; PULSE 57–72; RESP 13–27; TEMP 36.4; O2SAT 90–97
--- NOTE | 2021-08-31 13:45 | RT.EKG_ITS ---
APPROVED REPORT Exam: Resting ECG Reason for Exam: sob Patient Location: E HR:54 bpm ECG Measurements Heart Rate 54 AXIS AL 313 P 43 QRSd 145 QRS 98 QT 486 T -60 QTc 462 Conclusion Sinus bradycardia...rate< 60 Atrial premature complexes in couplets...pair SV complexes w/ short R-R Prolonged AL interval...AL >220, V-rate 50- 90 Nonspecific intraventricular conduction delay...QRSd >115mS, not LBBB/RBBB Probable anterior infarct, age indeterminate...Q >35mS, T neg, V2-V5. Sinus. PACs. No STEMI. I have reviewed and interpreted ECG and agree with software generated interpretation.
--- NOTE | 2021-08-31 14:15 | DI.RAD_ITS ---
Exam(s) XR PORTABLE CHEST AP EXAM: XR PORTABLE CHEST AP CLINICAL HISTORY: shortness of breath. TECHNIQUE: 2D digital imaging was performed. COMPARISON: CR,XR XR PORTABLE CHEST AP from 01/14/2021 FINDINGS: Single AP portable view. Cardiomegaly again noted. Mediastinum unchanged Moderate size right pleural effusion again noted. No obvious perfusion on the left side. Some infil trate in the right lower lung field again noted. IMPRESSION: Persistent right lower lung infiltrate and moderate size right pleural effusion. DATA REPOSITORY: RADIATION DOSE DELIVERED: All CT scans at this facility use at least one of these dose optimization techniques: automated exposure control; mA and/or kV adjustment per patient size (includes targeted e xams where dose is matched to clinical indication); or iterative reconstruction.
[2021-08-31 14:37] LABS: Abs Immature Grans 0.01 10^3/uL (0.0-0.06); Absolute Basophil Count 0.04 10^3/uL (0.0-0.2); Absolute Eosinophil Count 0.17 10^3/uL (0.0-0.7); Absolute Lymphocyte Count 0.84 10^3/uL (1.2-3.4); Absolute Neutrophil Count 4.28 10^3/uL (1.2-6.7); Basophils % 0.7; Eosinophils % 2.9; HCT 40.8 % (40.0-50.0); HGB 13.1 g/dL (13.5-17.5); Immature Grans % 0.2; Lymphocytes % 14.1; MCH 30.9 pg (27.0-33.0); MCHC 32.1 % (32.0-36.0); MCV 96 fL (80-95); MPV 9.7 fL (8.0-11.0); Monocytes % 10.1; Platelet Count 336 10^3/uL (130-400); RBC 4.24 10^6/uL (4.36-5.78); RDW 13.9 % (11.8-14.1); RDW-SD 49.4 fL; WBC 5.94 10^3/uL (4.4-10.8)
[2021-08-31 15:02] LABS: ALT 48 U/L (16-63); AST 86 U/L (15-37); Albumin 3.2 g/dL (3.4-5.0); Alkaline Phosphatase 448 U/L (46-116); Anion Gap 5.2 mmol/L (3-11); BUN 33 mg/dL (7-18); Bilirubin, Total 0.8 mg/dL (0.2-1.0); CO2 28.8 mmol/L (21.0-32.0); CREATININE 1.1 mg/dL (0.70-1.30); Calcium 8.8 mg/dL (8.5-10.1); Chloride 98 mmol/L (98-107); Glucose 79 mg/dL (74-106); NT-proBNP 19401 pg/mL (<300); Potassium 4.8 mmol/L (3.5-5.1); Sodium 132 mmol/L (136-145); Troponin I < 50 ng/L (<or=60)
--- NOTE | 2021-08-31 15:05 | ED.GENADUL_ITS ---
Discharge Plan Disposition Patient Disposition: HOME Condition: Stable Discharge Details Clinical Impression: Congestive heart failure, Acute dyspnea Primary Care Provider: Haily Alvarez ED Provider: Kaylin Singh Home Meds and New Rx's Prescriptions: Continued metoprolol succinate 25 mg tablet extended release 24 hr 50 mg PO DAILY Qty: 0 0RF Rx Instructions: MED LIST PER PCP STATES DOSE IS 100MG TAB--1/2 TAB DAILY--STACIE GUZMAN nitroglycerin 0.4 MG tablet, sublingual 0.4 mg Sublingual PRN PRN Label Comments: pt reports that he thinks he took one of these a week ago 03/15/15 acetaminophen [Tylenol Arthritis Pain] 650 MG tablet extended release 1,300 mg PO Q6H PRN PRNQty: 0 0RF aspirin [Aspir-81] 81 MG tablet,delayed release (DR/EC) 81 mg PO DAILY allopurinol 100 MG tablet 100 mg PO DAILY Qty: 0 0RF valsartan [Diovan] 40 mg tablet 20 mg PO BID Qty: 60 0RF eplerenone 25 mg tablet 12.5 mg PO QAM furosemide 40 mg tablet 40 mg PO BID@0830,1200 atorvastatin 40 mg tablet 80 mg PO HS Discharge Instructions Instructions: Heart Failure (ED), Dyspnea (ED) Additional Instructions: take 40 mg of lasix 3 times daily for 3 days recheck with pcp in 48 hours return earlier with new or worsening complaints At this time the cardiac work-up is within normal limits, please follow-up with PCP. Increase your Lasix. Referrals: Haily Alvarez [Primary Care Provider] - 5 days Discharge Data Discharge Date/Time-TO BE ENTERED AT DEPARTURE: 08/31/21 19:01 Medical Decision Making <DIPTI [place] - Last Filed: 09/01/21 23:09> Patient appears well He has stable vital I have low suspicion for PE given lack of hypoxia, tachycardia, or tachypnea lungs are clear to auscultation We will order labs to examine for CHF or cardiac etiology of symptoms BNP is 21,000, this is elevated from it looks like his median of 17,000 although patient appears well and he has not hypoxic on room air I think that in 2 negative troponins and an ambulatory trial with pulse oximetry patient could potentially be discharged home with increased dose of Lasix for 3 days He is given a dose of IV 80 mg of Lasix in the emergency department We will do reassessment with repeat troponin level at the 3-hour winston with EKG She will be transitioned to Kaylin Madrid nurse practitioner at 1600 Medical Records Medical records reviewed: Yes I reviewed the patient's medical records. Lab Data Lab results reviewed: Yes I reviewed the patient's lab results. <Kaylin Singh NP - Last Filed: 09/01/21 00:31> Patient appears well He has stable vital I have low suspicion for PE given lack of hypoxia, tachycardia, or tachypnea lungs are clear to auscultation We will order labs to examine for CHF or cardiac etiology of symptoms BNP is 21,000, this is elevated from it looks like his median of 17,000 although patient appears well and he has not hypoxic on room air I think that in 2 negative troponins and an ambulatory trial with pulse oximetry patient could potentially be discharged home with increased dose of Lasix for 3 days He is given a dose of IV 80 mg of Lasix in the emergency department We will do reassessment with repeat troponin level at the 3-hour winston with EKG She will be transitioned to Kaylin Madrid nurse practitioner at 1600 1622: S[place]: Care assumed from provider (DIPTI [place]) Please see their initial HPI, PE, and documentation. Discussed patient details and case and pending workup and disposition. Patient is hemodynamically stable, and alert and oriented. At the time of signout pending serial troponin, will road test with room air O2 sat trial. In short patient is an 80-year-old male who is baseline chronically ill does have a history of pleural effusion, dysphagia acute bronchitis, CHF. He presents with a CHF exacerbation. He has been given 80 mg IV Lasix. 1700: Patient reevaluation, he is sitting at side of the bed he has had 1250 ml urine output since Lasix administration, vital signs are stable he reports that he feels okay. He is requesting to have male. I did discuss plan of care for repeat troponin and EKG and road test. He verbalizes understanding and is in agreement with the plan. 1802: Informed by ED staff after room air trial road test lowest O2 sat reading 92% on room air. Breathing improved to 95% with walking. Repeat troponin within normal limits and repeat EEG. No change from previous. Patient discharged home with strict return instructions and follow-up care with PCP. Instructed to take increased Lasix for the next 3 days. This text was generated using [employer] dictation system, please disregard any oddities of phrase or misspellings. HPI <DIPTI [place] - Last Filed: 09/01/21 23:09> General Date/Time Provider Initiated Documentation: 08/31/21 13:57 . HPI Narrative: This 80-year-old gentleman with history of [place], CHF, anasarca, dyspnea presented with reports of acute exacerbation of chronic shortness of breath. Patient states he is taking his Lasix as prescribed. He denies any associated chest discomfort or significant weight gain although he states he has had some increased fluid in his legs. He denies any nausea or vomiting. He denies any orthopnea. He states he has had this numerous times in the past. He denies any upper respiratory symptoms. He denies any cough. Related Data Home Medications Medication Instructions Recorded Confirmed nitroglycerin 0.4 mg sublingual 0.4 mg sublingual PRN PRN 12/31/12 08/31/21 tablet acetaminophen 650 mg 1,300 mg PO Q6H PRN PRN ##0 01/03/13 08/31/21 tablet,extended release (Tylenol Arthritis Pain) aspirin 81 mg tablet,delayed 81 mg PO DAILY 10/28/15 08/31/21 release (Aspir-) allopurinol 100 mg tablet 100 mg PO DAILY #0 tabs 04/16/20 08/31/21 atorvastatin 40 mg tablet 80 mg PO HS 05/05/20 08/31/21 valsartan 40 mg tablet (Diovan) 20 mg PO BID #60 tabs 10/17/20 08/31/21 eplerenone 25 mg tablet 12.5 mg PO QAM 03/10/21 08/31/21 furosemide 40 mg tablet 40 mg PO BID@0830,1200 03/10/21 08/31/21 metoprolol succinate 25 mg 50 mg PO DAILY #0 tabs 03/17/21 08/31/21 tablet,extended release 24 hr Previous Rx's Medication Instructions Recorded acetaminophen 650 mg 1,300 mg PO Q6H PRN PRN ##0 01/03/13 tablet,extended release (Tylenol Arthritis Pain) allopurinol 100 mg tablet 100 mg PO DAILY #0 tabs 04/16/20 valsartan 40 mg tablet (Diovan) 20 mg PO BID #60 tabs 10/17/20 metoprolol succinate 25 mg 50 mg PO DAILY #0 tabs 03/17/21 tablet,extended release 24 hr Allergies Allergy/AdvReac Type Severity Reaction Status Date / Time amlodipine AdvReac Intermediate Swelling/Ed Unverified 08/31/21 13:56 lottie enalapril maleate AdvReac Intermediate cough Unverified 08/31/21 13:56 [From Vasotec] enalaprilat dihydrate AdvReac Intermediate cough Unverified 08/31/21 13:56 [From Vasotec] spironolactone AdvReac Unknown Other (See Unverified 08/31/21 13:56 Comment) General Stated Complaint: SOB RUPESH: 3 Review of Systems <DIPTI [place] - Last Filed: 09/01/21 23:09> All systems reviewed & are unremarkable except as noted in HPI and below PFSH <DIPTI [place] - Last Filed: 09/01/21 23:09> All Active Problems (Updated 08/31/21 @ 15:24 by DIPTI [place]) Acute dyspnea (Acute) Bilateral hearing loss (Acute) YAHIR (obstructive sleep apnea) (Chronic) Night terrors (Acute) 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) CHF (congestive heart failure) (Chronic) Dyspnea (Acute) CHF (congestive heart failure) (Chronic) Acute exacerbation of CHF (congestive heart failure) (Acute) Pleural effusion (Acute) Anasarca (Acute) Dizziness (Acute) Dizziness (Acute) Congestive heart failure (Chronic) Contusion of hand, left (Acute) Contusion of hip, left (Acute) Mild dehydration (Acute) Fracture of triquetral bone of left wrist (Acute) Carotid stenosis, right (Acute) Acute exacerbation of CHF (congestive heart failure) (Acute) Dysphasia (Acute) Internal carotid artery occlusion (Acute) LEFT Acute kidney injury superimposed on chronic kidney disease (Acute) Dysarthria (Acute) Abdominal pain (Acute) Shortness of breath (Acute) Dizziness (Acute) Pleural effusion on right (Chronic) Palpitations (Acute) Calcific tendinitis of right shoulder (Acute) Cervical spinal stenosis (Acute) DNI (do not intubate) (Acute) DNR (do not resuscitate) (Acute) POLST (Physician Orders for Life-Sustaining Treatment) (Acute) Hypoxia (Chronic) Right shoulder pain (Acute) At risk for aspiration (Acute) Weakness generalized (Acute) Acute hypernatremia (Acute) Mental status, decreased (Acute) Discharge planning issues (Acute) DVT prophylaxis (Acute) Bladder neck contracture (Acute) Prostate cancer (Chronic) Chronic kidney disease (Chronic) STAGE 3 Hypercholesterolemia (Chronic) Hypertension (Chronic) CAD (coronary artery disease) (Chronic) Ischemic cardiomyopathy (Chronic) Heart failure, chronic, with acute decompensation (Acute 12/31/12) Bladder outlet obstruction (Chronic) Medical History (Updated 08/31/21 @ 15:24 by DIPTI [place]) Ascites CHF (congestive heart failure) Combined systolic/diastolic, EF 50% by echo in 03/19 Chronic shortness of breath Cirrhosis 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 Social History Smoking/Tobacco Use Status: Never Smoking risk assessment performed?: Yes Alcohol Intake: former Drug use: Never Substance use type: does not use Caregiver/Support person: Yes Communication Needs: Hard of Hearing and Corrective Lenses Education Level: high school Do you need help understanding health information?: Always Current gender identity: male How often do you talk on the phone with friends or family?: three or more times per week How often do you get together with friends or relatives?: three or more times per week Panel score (0-1 are the most socially isolated patients): 1 What type of physical activity do you participate in: walking Duration: 15-30 minutes/day Special deanna needs: No Seatbelt use: always Do you feel safe at home: Yes Do you feel safe in your relationship?: Yes Additional Social history: Son Berto is his main person who helps care for him. He is a , but was posted in [place] during the [employer] era. He has insurance with both medicare and [employer]. Exam <DIPTI [place] - Last Filed: 09/01/21 23:09> Const General: cooperative, comfortable and no acute distress Eyes Pupils: PERRL Resp Effort & Inspection: normal respiratory effort and able to speak in complete sentences Auscultation: clear to auscultation bilaterally Cardio Rate: regular rate Rhythm: regular rhythm Heart Sounds: no murmurs Skin General skin exam: no rashes or lesions noted Neuro General: patient alert and patient oriented x3 Extrem Other: Distal pulses intact, 2+ edema to bilateral lower extremities Course <DIPTI [place] - Last Filed: 09/01/21 23:09> Vital Signs Vital signs: Vital Signs Temperature 36.4 C L 08/31/21 13:52 Pulse 57 L 08/31/21 13:52 Respiratory Rate 16 08/31/21 13:52 Blood Pressure 157/82 H 08/31/21 13:52 Pulse Oximetry 96 08/31/21 13:52 Temperature 36.4 C L 08/31/21 13:52 Temperature Source Temporal Artery Scan 08/31/21 13:52 Pulse 69 08/31/21 14:39 Respiratory Rate 21 08/31/21 14:39 Respiratory Effort Non-Labored 08/31/21 14:23 Respiratory Depth Shallow 08/31/21 14:23 Respiratory Pattern Normal 08/31/21 14:23 Blood Pressure 150/78 H 08/31/21 14:39 Blood Pressure Position Sitting 08/31/21 13:52 Pulse Oximetry 94 08/31/21 14:39 Oxygen Delivery Method Room Air 08/31/21 13:52 Oxygen Flow Rate 0 08/31/21 13:52 Pain Level 0 08/31/21 13:52 Lab/Test Results Lab/Test Results: Laboratory Tests Range/Units 08/31/21 14:10 WBC (4.4-10.8) 10^3/uL 5.94 RBC (4.36-5.78) 10^6/uL 4.24 L Hgb (13.5-17.5) g/dL 13.1 L Hct (40.0-50.0) % 40.8 MCV (80-95) fL 96 H MCH (27.0-33.0) pg 30.9 MCHC (32.0-36.0) % 32.1 RDW (11.8-14.1) % 13.9 Plt Count (130-400) 10^3/uL 336 MPV (8.0-11.0) fL 9.7 Immature Gran % 0.2 Neutrophils % 72.0 Lymphocytes % 14.1 Monocytes % 10.1 Eosinophils % 2.9 Basophils % 0.7 Nucleated RBC % (0.0-0.3) % 0.0 Absolute Neutrophils (1.2-6.7) 10^3/uL 4.28 Absolute Lymphocytes (1.2-3.4) 10^3/uL 0.84 L Absolute Monocytes (0.1-0.8) 10^3/uL 0.60 Absolute Eosinophils (0.0-0.7) 10^3/uL 0.17 Absolute Basophils (0.0-0.2) 10^3/uL 0.04 Sign Out <DIPTI [place] - Last Filed: 09/01/21 23:09> Sign Out Data: Sign Out Comment: pending repeat troponin, ambulatory trial, lasix Last updated by Sherri Menchaca PA at 08/31/21 15:48
[2021-08-31] MEDS: Furosemide 100 MG/10 ML VIAL 80 MG IVP (15:32)
--- NOTE | 2021-08-31 17:45 | RT.EKG_ITS ---
APPROVED REPORT Exam: Resting ECG Reason for Exam: Repeat Patient Location: E HR:61 bpm ECG Measurements Heart Rate 61 AXIS MA 316 P 63 QRSd 152 QRS 103 QT 438 T -26 QTc 461 Conclusion Sinus rhythm...normal P axis, V-rate 60- 99 Sinus pause...long R-R interval, normal QRSd Prolonged MA interval...MA >220, V-rate 50- 90 Nonspecific intraventricular conduction delay...QRSd >115mS, not LBBB/RBBB. Sinus. No STEMI. I have reviewed and interpreted ECG and agree with software generated interpretation.
--- NOTE | 2021-08-31 18:14 | NUR.NOTE ---
Pt ambulatory around ED with steady gait, O2 94% RA, HR 71, pt denies any SOB. Pt ambulatory without assistance.
[2021-08-31 18:41] LABS: Troponin I < 50 ng/L (<or=60)
== END 2021-08-31 19:01 | disposition home or self-care (01) ==
PROVIDERS: Physician Assistant; Emergency Provider Registered Nurse Emergency; PCP Nurse Practitioner Family
DX: I50.9 Heart failure, unspecified (principal); Z95.5 Presence of coronary angioplasty implant and graft; Z79.82 Long term (current) use of aspirin
CPT/HCPCS: 80053; 93005; 96374; 99285; 71045; 83880; 84484; 85025; 93010; 99284; J1940

== ENCOUNTER 2021-09-23 14:05 | Emergency (ER) | payer MEDICARE, OTHER, SELFPAY ==
[2021-09-23 14:14] VITALS: BP 144/79; PULSE 71; RESP 18; TEMP 37.2; O2SAT 99
--- NOTE | 2021-09-23 14:24 | W.ED.GENAD ---
Discharge Plan Disposition Patient Disposition: HOME Condition: Improving Discharge Details Clinical Impression: Right lower lobe pneumonia Primary Care Provider: Ac Romeo ED Provider: Edu Hutton Home Meds and New Rx's Prescriptions: New amoxicillin-pot clavulanate 875-125 mg tablet 1 tab PO BID 9 Days Qty: 18 0RF Continued metoprolol succinate 25 mg tablet extended release 24 hr 50 mg PO DAILY Qty: 0 0RF Rx Instructions: MED LIST PER PCP STATES DOSE IS 100MG TAB--1/2 TAB DAILY--HSMITErika, RN nitroglycerin 0.4 MG tablet, sublingual 0.4 mg Sublingual PRN PRN Label Comments: pt reports that he thinks he took one of these a week ago 03/15/15 acetaminophen [Tylenol Arthritis Pain] 650 MG tablet extended release 1,300 mg PO Q6H PRN PRNQty: 0 0RF aspirin [Aspir-81] 81 MG tablet,delayed release (DR/EC) 81 mg PO DAILY allopurinol 100 MG tablet 100 mg PO DAILY Qty: 0 0RF valsartan [Diovan] 40 mg tablet 20 mg PO BID Qty: 60 0RF eplerenone 25 mg tablet 12.5 mg PO QAM furosemide 40 mg tablet 40 mg PO BID@0830,1200 atorvastatin 40 mg tablet 80 mg PO HS Discharge Instructions Instructions: Pneumonia (ED) Additional Instructions: Please take antibiotics as prescribed until finished. Home to rest today. Your COVID test is pending and you will receive a call regarding the result. Continue your routine medications. Medical Decision Making 80-year-old female presents from home with 3 days of cough, production of yellow and green sputum, sore throat and runny nose. He states that his adult son has a similar illness. Patient states he tested negative for COVID at home. He arrives here with normal vital signs and a reassuring exam. Differential diagnosis includes viral syndrome, bronchitis, pneumonia. Rapid strep test, screening COVID test, and chest x-ray obtained. But strep is negative. COVID test is pending. CXR: Bibasilar infiltrate which is mild. See formal report. Patient had above-mentioned infiltrate on previous x-ray August 31. Is not treated with antibiotics. We will treat with a course of antibiotics at this time. He understands his COVID test is pending. He is stable and appropriate for outpatient management. HPI General Date/Time Provider Initiated Documentation: 09/23/21 14:09. Limitations to Documentation: no limitations. Information obtained by: patient. History of Present Illness 80 year old M presents to the emergency department with the chief complaint of Sore throat, cough with production of sputum, described as mild, and is localized to the chest. Patient started experiencing this day(s) and it has been intermittent. No relieving factors improve symptom(s), No exacerbating factors reported . Patient notes cough; denies fever/chills and shortness of breath. Patient did receive the following treatments prior to arrival, none Related Data Home Medications Medication Instructions Recorded Confirmed nitroglycerin 0.4 mg sublingual 0.4 mg sublingual PRN PRN 12/31/12 08/31/21 tablet acetaminophen 650 mg 1,300 mg PO Q6H PRN PRN ##0 01/03/13 08/31/21 tablet,extended release (Tylenol Arthritis Pain) aspirin 81 mg tablet,delayed 81 mg PO DAILY 10/28/15 08/31/21 release (Aspir-) allopurinol 100 mg tablet 100 mg PO DAILY #0 tabs 04/16/20 08/31/21 atorvastatin 40 mg tablet 80 mg PO HS 05/05/20 08/31/21 valsartan 40 mg tablet (Diovan) 20 mg PO BID #60 tabs 10/17/20 08/31/21 eplerenone 25 mg tablet 12.5 mg PO QAM 03/10/21 08/31/21 furosemide 40 mg tablet 40 mg PO BID@0830,1200 03/10/21 08/31/21 metoprolol succinate 25 mg 50 mg PO DAILY #0 tabs 03/17/21 08/31/21 tablet,extended release 24 hr amoxicillin 875 mg-potassium 1 tab PO BID 9 days #18 tabs 09/23/21 clavulanate 125 mg tablet Previous Rx's Medication Instructions Recorded acetaminophen 650 mg 1,300 mg PO Q6H PRN PRN ##0 01/03/13 tablet,extended release (Tylenol Arthritis Pain) allopurinol 100 mg tablet 100 mg PO DAILY #0 tabs 04/16/20 valsartan 40 mg tablet (Diovan) 20 mg PO BID #60 tabs 10/17/20 metoprolol succinate 25 mg 50 mg PO DAILY #0 tabs 01/19/22 tablet,extended release 24 hr amoxicillin 875 mg-potassium 1 tab PO BID 9 days #18 tabs 09/23/21 clavulanate 125 mg tablet Allergies Allergy/AdvReac Type Severity Reaction Status Date / Time amlodipine AdvReac Intermediate Swelling/Ed Unverified 09/23/21 14:13 lottie enalapril maleate AdvReac Intermediate cough Unverified 09/23/21 14:13 [From Vasotec] enalaprilat dihydrate AdvReac Intermediate cough Unverified 09/23/21 14:13 [From Vasotec] spironolactone AdvReac Unknown Other (See Unverified 09/23/21 14:13 Comment) General Stated Complaint: Sorethroat RUPESH: 4 Review of Systems Narrative: Son at home has similar illness. Patient tested negative for COVID at home. No difficulty breathing, no chest pain. 6 systems reviewed and otherwise neg PFSH All Active Problems (Updated 09/23/21 @ 15:12 by Edu Hutton MD) Acute dyspnea (Acute) Right lower lobe pneumonia (Acute) Bilateral hearing loss (Acute) YAHIR (obstructive sleep apnea) (Chronic) Night terrors (Acute) 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) CHF (congestive heart failure) (Chronic) Dyspnea (Acute) CHF (congestive heart failure) (Chronic) Acute exacerbation of CHF (congestive heart failure) (Acute) Pleural effusion (Acute) Anasarca (Acute) Dizziness (Acute) Dizziness (Acute) Congestive heart failure (Chronic) Contusion of hand, left (Acute) Contusion of hip, left (Acute) Mild dehydration (Acute) Fracture of triquetral bone of left wrist (Acute) Carotid stenosis, right (Acute) Acute exacerbation of CHF (congestive heart failure) (Acute) Dysphasia (Acute) Internal carotid artery occlusion (Acute) LEFT Acute kidney injury superimposed on chronic kidney disease (Acute) Dysarthria (Acute) Abdominal pain (Acute) Shortness of breath (Acute) Dizziness (Acute) Pleural effusion on right (Chronic) Palpitations (Acute) Calcific tendinitis of right shoulder (Acute) Cervical spinal stenosis (Acute) DNI (do not intubate) (Acute) DNR (do not resuscitate) (Acute) POLST (Physician Orders for Life-Sustaining Treatment) (Acute) Hypoxia (Chronic) Right shoulder pain (Acute) At risk for aspiration (Acute) Weakness generalized (Acute) Acute hypernatremia (Acute) Mental status, decreased (Acute) Discharge planning issues (Acute) DVT prophylaxis (Acute) Bladder neck contracture (Acute) Prostate cancer (Chronic) Chronic kidney disease (Chronic) STAGE 3 Hypercholesterolemia (Chronic) Hypertension (Chronic) CAD (coronary artery disease) (Chronic) Ischemic cardiomyopathy (Chronic) Heart failure, chronic, with acute decompensation (Acute 12/31/12) Bladder outlet obstruction (Chronic) Medical History Ascites CHF (congestive heart failure) Combined systolic/diastolic, EF 50% by echo in 03/19 Chronic shortness of breath Cirrhosis History of carcinoma in situ of prostate DESAI (nonalcoholic steatohepatitis) Palliative care patient Pleural effusion, right Surgical History History of heart artery stent S/P prostatectomy Status post THR (total hip replacement) Family History Son No problems noted. Social History Smoking/Tobacco Use Status: Never Smoking risk assessment performed?: Yes Alcohol Intake: former Drug use: Never Substance use type: does not use Caregiver/Support person: Yes Communication Needs: Hard of Hearing and Corrective Lenses Education Level: high school Do you need help understanding health information?: Always Current gender identity: male How often do you talk on the phone with friends or family?: three or more times per week How often do you get together with friends or relatives?: three or more times per week Panel score (0-1 are the most socially isolated patients): 1 What type of physical activity do you participate in: walking Duration: 15-30 minutes/day Special deanna needs: No Seatbelt use: always Do you feel safe at home: Yes Do you feel safe in your relationship?: Yes Additional Social history: Son Berto is his main person who helps care for him. He is a , but was posted in [place] during the [employer] era. He has insurance with both medicare and [employer]. Exam Narrative Exam Narrative: GEN: awake, alert, oriented 3. Pleasant, well groomed, interactive. HEAD: Normocephalic, atraumatic ENT: Mucous membranes moist, oropharynx slightly erythematous but no exudate or swelling present, tympanic membranes pearlescent bilateral, External ear exam unremarkable EYES: PERRL, EOMI NECK: Full ROM, no GREG, no menigismus CHEST/RESP: Nontender, clear to auscultation bilateral, no wheeze/rhonchi/rales CARDIOVASCULAR: RRR, no murmur, rub sanju. 2+ Rad pulse bilateral ABDOMEN: Soft, nontender, no mass. +Bowel sounds EXT: Full ROM, no edema, no rash Neuro: Grossly normal neurologic exam, conversant, interactive. Psych: Speech fluent, thoughts congruent, affect normal Course Vital Signs Vital signs: Vital Signs Temperature 37.2 C 09/23/21 14:14 Pulse 71 09/23/21 14:14 Respiratory Rate 18 09/23/21 14:14 Blood Pressure 144/79 H 09/23/21 14:14 Pulse Oximetry 99 09/23/21 14:14 Temperature 37.2 C 09/23/21 14:14 Temperature Source Skin 09/23/21 14:14 Pulse 71 09/23/21 14:14 Respiratory Rate 18 09/23/21 14:14 Blood Pressure 144/79 H 09/23/21 14:14 Blood Pressure Position Sitting 09/23/21 14:14 Pulse Oximetry 99 09/23/21 14:14 Oxygen Delivery Method Room Air 09/23/21 14:14 Oxygen Flow Rate 0 09/23/21 14:14
--- NOTE | 2021-09-23 14:30 | DI.RAD_ITS ---
Exam(s) XR PORTABLE CHEST AP EXAM: XR PORTABLE CHEST AP CLINICAL HISTORY: Cough TECHNIQUE: 2D digital imaging was performed of the chest. One image was obtained. An AP view was ob tained. COMPARISON: CR XR PORTABLE CHEST AP from 08/31/2021 FINDINGS: MEDIASTINUM: Normal. HEART: Cardiomegaly. PULMONARY VASCULATURE: Normal. LUNGS: There has been an improvement in the right basilar infiltrate with a small residual infiltrate present. The left lung is clear. PLEURAL SPACE: There is a small right pleural effusion. BONE:Within normal limits for the patient's age. OTHER FINDINGS:Normal. IMPRESSION: 1. Improvement of the right basilar infiltrate which is now mild. 2. Small right pleural effusion. 3. Cardiomegaly DATA REPOSITORY: RADIATION DOSE DELIVERED:
[2021-09-24 13:44] LABS: COVID-19 RT-PCR UVMMC Result Negative (Negative)
== END 2021-09-23 15:20 | disposition home or self-care (01) ==
PROVIDERS: Emergency Provider Emergency Medicine; PCP Family Medicine
DX: J18.9 Pneumonia, unspecified organism (principal); I50.40 Unspecified combined systolic (congestive) and diastolic (congestive) heart failure; Z95.5 Presence of coronary angioplasty implant and graft; Z20.822 Contact with and (suspected) exposure to COVID-19
CPT/HCPCS: 99283; 99284; U0003; 71045; 87081

== ENCOUNTER 2021-10-03 10:40 | Emergency (ER) | payer OTHER, MEDICARE, SELFPAY ==
[2021-10-03] VITALS (51 sets, daily range): BP systolic 156–170; BP diastolic 76–87; PULSE 69–90; RESP 12–29; TEMP 36.4; O2SAT 93–97
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
--- NOTE | 2021-10-03 11:00 | RT.EKG_ITS ---
APPROVED REPORT Exam: Resting ECG Reason for Exam: tachycardia Patient Location: E HR:78 bpm ECG Measurements Heart Rate 78 AXIS NM 276 P 36 QRSd 152 QRS -10 QT 436 T -13 QTc 491 Conclusion Sinus rhythm...normal P axis, V-rate 60- 99 Multiform ventricular premature complexes...short R-R, variable morphology Prolonged NM interval...NM >220, V-rate 50- 90 Right bundle branch block...QRSd>120, terminal axis(90,270) Inferior infarct, old...Q >35mS, II III aVF
--- NOTE | 2021-10-03 11:00 | DI.RAD_ITS ---
Exam(s) XR WRIST LT COMPLETE EXAM: XR WRIST LT COMPLETE CLINICAL HISTORY: deformity. TECHNIQUE: 2D digital imaging was performed. Three views. COMPARISON: CR,XR XR HAND LT COMPLETE from 09/14/2020 FINDINGS: BONES: No acute fracture is present. No bony destructive lesion is seen. Bony fragment is again seen in the dorsal proximal carpal row on the lateral view. JOINTS: The carpal bones are normally aligned. Mild degenerative changes. SOFT TISSUE: Lateral soft tissue swelling. No foreign body. Vascular calcifications. IMPRESSION: Soft tissue swelling. Old calcification dorsal wrist. DATA REPOSITORY: RADIATION DOSE DELIVERED:
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
[2021-10-03 11:31] LABS: Abs Immature Grans 0.04 10^3/uL (0.0-0.06); Absolute Basophil Count 0.05 10^3/uL (0.0-0.2); Absolute Eosinophil Count 0.14 10^3/uL (0.0-0.7); Absolute Lymphocyte Count 0.94 10^3/uL (1.2-3.4); Absolute Monocyte Count 0.73 10^3/uL (0.1-0.8); Absolute Neutrophil Count 4.58 10^3/uL (1.2-6.7); Basophils % 0.8; Eosinophils % 2.2; HCT 36.5 % (40.0-50.0); Immature Grans % 0.6; Lymphocytes % 14.5; MCH 31.3 pg (27.0-33.0); MCHC 32.9 % (32.0-36.0); MCV 95 fL (80-95); MPV 9.1 fL (8.0-11.0); Monocytes % 11.3; Neutrophils % 70.6; Platelet Count 282 10^3/uL (130-400); RBC 3.84 10^6/uL (4.36-5.78); RDW 13.6 % (11.8-14.1); RDW-SD 47.8 fL; WBC 6.48 10^3/uL (4.4-10.8)
[2021-10-03] MEDS: Normal Saline 500 ML IV (11:35)
[2021-10-03 11:46] LABS: ALT 41 U/L (16-63); AST 61 U/L (15-37); Albumin 2.8 g/dL (3.4-5.0); Alkaline Phosphatase 361 U/L (46-116); Anion Gap 4.3 mmol/L (3-11); BUN 32 mg/dL (7-18); Bilirubin, Total 0.9 mg/dL (0.2-1.0); CO2 32.7 mmol/L (21.0-32.0); CREATININE 1.1 mg/dL (0.70-1.30); Calcium 8.3 mg/dL (8.5-10.1); Chloride 99 mmol/L (98-107); Glucose 90 mg/dL (74-106); Potassium 4.4 mmol/L (3.5-5.1); Sodium 136 mmol/L (136-145)
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
[2021-10-03] MEDS: Normal Saline Flush 10 ML SYR IVP (12:47)
[2021-10-03] MEDS: Omnipaque 350 MG/ML 100 ML BTL IJ (12:47)
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
--- NOTE | 2021-10-03 13:24 | DI.VRAD_ITS ---
PROCEDURE INFORMATION: Exam: XR Left Wrist Exam date and time: 10/03/2021 12:51 PM Age: 80 years old Clinical indication: Other: Deformity TECHNIQUE: Imaging protocol: Radiologic exam of the Left wrist. Views: 3 or more views. COMPARISON: CR XR HAND LT COMPLETE 09/14/2020 6:55 PM FINDINGS: Bones/joints: Redemonstrated small bony fragment projecting posterior to the triquetrum on lateral view. Distal radioulnar joint is narrowed with osteophyte formation. No fracture. Soft tissues: Definitely radial side wrist soft tissue swelling. Vasculature: Vascular calcifications are noted. IMPRESSION: 1. Definite radial side wrist soft tissue swelling but without any evidence of underlying fracture. 2. Previous, redemonstrated small bony fragment projecting posterior to the triquetrum on lateral view. Correlate for tenderness although this is chronic. Dictated and Authenticated by: Stefano Graf MD. Ordering:LUBA Polanco MD
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
[2021-10-03] MEDS: Bacitracin 1 PACKET (13:55)
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
--- NOTE | 2021-10-03 15:21 | NUR.NOTE ---
1405:ambulated pt through department - pt used rolling walker without difficulty - denies dizziness or SOB Nursing Note:
== END 2021-10-03 14:23 | disposition home or self-care (01) ==
PROVIDERS: Emergency Provider Physician Assistant; PCP Family Medicine
DX: S41.119A Laceration without foreign body of unspecified upper arm, initial encounter (principal); S60.212A Contusion of left wrist, initial encounter; S80.12XA Contusion of left lower leg, initial encounter; S80.11XA Contusion of right lower leg, initial encounter; S00.12XA Contusion of left eyelid and periocular area, initial encounter; S50.812A Abrasion of left forearm, initial encounter; I50.9 Heart failure, unspecified; Z23 Encounter for immunization; Z95.5 Presence of coronary angioplasty implant and graft; V89.2XXA Person injured in unspecified motor-vehicle accident, traffic, initial encounter
CPT/HCPCS: 36415; 74177; 80053; 86850; 86900; 86901; 90471; 93005; 96361; 96374; 99285; 70450; 70486; 71260; 72125; 73110; 73590; 85025; 93010; J0131; J3490

== ENCOUNTER 2021-10-06 19:15 | Emergency (ER) | payer MEDICARE, OTHER, SELFPAY ==
[2021-10-06 19:28] VITALS: BP 142/68; PULSE 63; RESP 16; TEMP 36.4; O2SAT 98
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
== END 2021-10-06 22:42 | disposition home or self-care (01) ==
PROVIDERS: Emergency Provider Emergency Medicine; PCP Family Medicine
DX: S50.12XA Contusion of left forearm, initial encounter (principal); S00.83XA Contusion of other part of head, initial encounter; S60.212A Contusion of left wrist, initial encounter; S80.12XA Contusion of left lower leg, initial encounter; S80.11XA Contusion of right lower leg, initial encounter; I50.9 Heart failure, unspecified; Z79.82 Long term (current) use of aspirin; Z95.5 Presence of coronary angioplasty implant and graft; V49.9XXA Car occupant (driver) (passenger) injured in unspecified traffic accident, initial encounter
CPT/HCPCS: 99284; 73090; 73130; 73502; 73590; 99282

== ENCOUNTER 2021-10-10 09:58 | Emergency (ER) | payer MEDICARE, OTHER, SELFPAY ==
[2021-10-10 10:29] VITALS: BP 140/84; PULSE 65; RESP 18; TEMP 36.4; O2SAT 96
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
[2021-10-10] MEDS: Ketorolac 15 MG/ML VIAL IM (11:04)
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
[2021-10-10 12:13] LABS: Lactate 0.7 mmol/L (0.6-1.4)
[2021-10-10 12:15] LABS: Abs Immature Grans 0.02 10^3/uL (0.0-0.06); Absolute Basophil Count 0.04 10^3/uL (0.0-0.2); Absolute Eosinophil Count 0.07 10^3/uL (0.0-0.7); Absolute Lymphocyte Count 0.72 10^3/uL (1.2-3.4); Absolute Monocyte Count 0.76 10^3/uL (0.1-0.8); Absolute Neutrophil Count 5.77 10^3/uL (1.2-6.7); Basophils % 0.5; Eosinophils % 0.9; HCT 35.3 % (40.0-50.0); HGB 11.6 g/dL (13.5-17.5); Immature Grans % 0.3; Lymphocytes % 9.8; MCH 31.9 pg (27.0-33.0); MCHC 32.9 % (32.0-36.0); MCV 97 fL (80-95); MPV 9.2 fL (8.0-11.0); Monocytes % 10.3; Neutrophils % 78.2; Platelet Count 329 10^3/uL (130-400); RBC 3.64 10^6/uL (4.36-5.78); RDW 14.3 % (11.8-14.1); WBC 7.38 10^3/uL (4.4-10.8)
[2021-10-10 12:31] LABS: ALT 34 U/L (16-63); AST 57 U/L (15-37); Albumin 3.1 g/dL (3.4-5.0); Alkaline Phosphatase 389 U/L (46-116); Anion Gap 5.5 mmol/L (3-11); BUN 39 mg/dL (7-18); Bilirubin, Total 1.6 mg/dL (0.2-1.0); CO2 32.5 mmol/L (21.0-32.0); CREATININE 1.3 mg/dL (0.70-1.30); Calcium 8.5 mg/dL (8.5-10.1); Chloride 99 mmol/L (98-107); Creatine Kinase 227 U/L (39-308); Estimated GFR 53.12 (mL/min/1.73m2); Glucose 92 mg/dL (74-106); Potassium 4.2 mmol/L (3.5-5.1); Sodium 137 mmol/L (136-145); Total Protein 7.8 g/dL (6.4-8.2)
[2021-10-10 12:55] LABS: INR 1.2 (0.9-1.1); PTT Activated 30.3 sec (21.0-27.5); Prothrombin Time 11.7 sec (9.3-11.0)
[2021-10-10 14:23] VITALS: BP 132/80; PULSE 75; RESP 18; TEMP 36.6; O2SAT 99
== END 2021-10-10 14:24 | disposition home or self-care (01) ==
PROVIDERS: Emergency Provider Emergency Medicine; PCP Family Medicine
DX: R60.0 Localized edema (principal); M79.605 Pain in left leg
CPT/HCPCS: 36415; 80053; 82550; 96372; 99284; 73700; 83605; 85025; 85610; 85730; 99283; J1885

== ENCOUNTER → 2021-10-14 13:40 | Outpatient (CLI) | payer MEDICARE, OTHER, SELFPAY ==
--- NOTE | 2021-10-14 13:30 | DI.RAD_ITS ---
Exam(s) XR CHEST 2V PA LATERAL EXAM: XR CHEST 2V PA LATERAL CLINICAL HISTORY: cough, r/o pneumonia, r05.9 TECHNIQUE: 2D digital imaging was performed. COMPARISON: CR XR PORTABLE CHEST AP from 08/31/2021 CR XR PORTABLE CHEST AP from 09/23/[address] THORACIC LUMBAR SPINE REC from 10/03/[address] CHEST/ABD/PEL W from 10/03/2021 FINDINGS: The heart is enlarged. The aorta is tortuous. There is a stable small right pleural effusion and ad jacent basilar atelectasis. No definite infiltrate is seen. There is no left pleural effusion. The left lung appears clear. IMPRESSION: Stable small right pleural effusion and adjacent basilar atelectasis. DATA REPOSITORY: RADIATION DOSE DELIVERED:
== END ==
PROVIDERS: PCP Family Medicine; Visit Provider Physician Assistant
DX: R05.9 Cough, unspecified (principal); I51.7 Cardiomegaly; J90 Pleural effusion, not elsewhere classified; J98.11 Atelectasis
CPT/HCPCS: 71046

== ENCOUNTER 2021-10-14 14:41 | Outpatient (REF) | payer MEDICARE, OTHER, SELFPAY ==
[2021-10-16 10:35] LABS: COVID-19 RT-PCR UVMMC Result Negative (Negative)
== END 2021-10-14 14:42 | disposition home or self-care (01) ==
LOC: LBN 14:41
PROVIDERS: PCP Family Medicine; Visit Provider Physician Assistant
DX: J02.9 Acute pharyngitis, unspecified (principal); Z20.822 Contact with and (suspected) exposure to COVID-19
CPT/HCPCS: U0003; 87070

== ENCOUNTER 2021-11-02 11:53 | Emergency (ER) | payer MEDICARE, OTHER, SELFPAY ==
[2021-11-02 12:02] VITALS: BP 142/68; PULSE 59; RESP 18; TEMP 35.8; O2SAT 96
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
--- NOTE | 2021-11-02 13:52 | DI.RAD_ITS ---
Exam(s) XR CERVICAL SP RAMOS TRAUMA 2-3V EXAM: XR CERVICAL SP RAMOS TRAUMA 2-3V CLINICAL HISTORY: numbness. TECHNIQUE: 2D digital imaging was performed. Four images were obtained. COMPARISON: CR,XR XR CERVICAL SPINE COMP 4-5V from 04/04/2020 FINDINGS: BONES: No fracture or destructive lesion. Small endplate osteophytes are seen at C4-C5 and C5-C6. DISKS: There is disc space narrowing at C3-C4, C4-C5 and C5-C6. The C7-T1 junction is not well visua lized on the lateral view. ALIGNMENT: There is again seen grade 1 anterolisthesis of C3 on C4. The odontoid and atlantoaxial art iculations are normal. SOFT TISSUE: Atherosclerosis is seen in the soft tissues of the neck. The lung apices are clear. IMPRESSION: 1. No change in appearance of the cervical spine since 04/04/2020. 2. Stable grade 1 anterolisthesis of C3 on C4 and stable degenerative changes in the cervical spine. DATA REPOSITORY: RADIATION DOSE DELIVERED:
[2021-11-02 15:00] VITALS: BP 142/68; PULSE 59; RESP 18; TEMP 35.8; O2SAT 96
[2021-11-02 15:01] VITALS: RESP 18
== END 2021-11-02 15:03 | disposition home or self-care (01) ==
PROVIDERS: Emergency Provider Registered Nurse Emergency; PCP Family Medicine
DX: M47.812 Spondylosis without myelopathy or radiculopathy, cervical region (principal); R29.898 Other symptoms and signs involving the musculoskeletal system; I11.0 Hypertensive heart disease with heart failure; I50.9 Heart failure, unspecified; Z79.82 Long term (current) use of aspirin
CPT/HCPCS: 99283; 72040; 99282

== ENCOUNTER 2021-11-12 13:36 | Emergency (ER) | payer MEDICARE, OTHER, SELFPAY ==
[2021-11-12 13:44] VITALS: BP 148/75; PULSE 66; RESP 18; TEMP 36.6; O2SAT 97
--- NOTE | 2021-11-12 15:30 | DI.CT_ITS ---
Exam(s) CT HEAD CERVICAL SPINE WO EXAM: CT HEAD CERVICAL SPINE WO CLINICAL HISTORY: weakness in arms, r/o mass/fx. TECHNIQUE: Imaging Protocol: Axial computed tomography images with coronal and sagittal reformatted images were created and reviewed COMPARISON: CT CT HEAD CERV SPINE FACIAL WO from 10/03/2021 FINDINGS: BRAIN: There are no skull fractures nor fluid in the visualized paranasal sinuses. There is no evidence of intracranial hemorrhage, mass effect, or shift of midline structures. There are no extra-axial fluid collections. The ventricles are not enlarged or shifted and there is no blo od within the ventricular system nor within the basal cisterns. There is heavy calcification noted in the left vertebral artery again noted at skull base level. Bilateral atrophy again noted. CERVICAL SPINE: There is no evidence of acute fracture. Anterolisthesis of C 3 upon C4 again noted with approximatel y 5 millimeters anterior slippage of C3 upon C4, this related to degenerative facet joint changes. Also chronic disc space narrowing at C5-6 again noted and bilateral Luschka joint osteophytes at this level. Other disc spaces exhibit normal height with the exception of some sys of significant narrow ing at C3-4 level, this being the level of the listhesis. Moderate multilevel facet arthropathy. There is no significant facet joint malalignment. No significant osseous lesions evident. IMPRESSION: No acute intracranial findings on this noninfused CT scan of the brain.Atrophy again noted. Heavy ca lcification left vertebral artery at the skull base noted indicating atherosclerotic involvement in t he vertebral basilar system. Chronic degenerative changes in the cervical spine again noted including anterior listhesis of C3 upo n C4 related to advanced facet arthrosis. No acute cervical spine fractures nor acute compromise the cervical spinal canal. RADIATION DOSE DELIVERED: 1,190.87mGy.cm Total DLP DATA REPOSITORY: All CT scans at this facility are submitted to the National Radiology Data Registry (NRDR) Dose Index Registry (DIR) with the [employer] (A[employer]). RADIATION OPTIMIZATION: All CT scans at this facility use at least one of these dose optimization te chniques: automated exposure control; mA and/or kV adjustment per patient size (includes targeted exa ms where dose is matched to clinical indication); or iterative reconstruction.
--- NOTE | 2021-11-12 17:00 | ED.GENADUL_ITS ---
Discharge Plan Disposition Patient Disposition: HOME Condition: Good Discharge Details Clinical Impression: Bilateral arm weakness Primary Care Provider: Ac Romeo ED Provider: Jaziel Lowry Home Meds and New Rx's Prescriptions: No Action nitroglycerin 0.4 MG tablet, sublingual 0.4 mg Sublingual PRN PRN Label Comments: pt reports that he thinks he took one of these a week ago 03/15/15 aspirin [Aspir-81] 81 MG tablet,delayed release (DR/EC) 81 mg PO DAILY allopurinol 100 MG tablet 100 mg PO DAILY Qty: 0 0RF valsartan [Diovan] 40 mg tablet 20 mg PO BID Qty: 60 0RF eplerenone 25 mg tablet 12.5 mg PO QAM furosemide 40 mg tablet 40 mg PO BID@0830,1200 acetaminophen [Tylenol Arthritis Pain] 650 MG tablet extended release 650 mg PO Q6H PRN PRN metoprolol succinate 25 mg tablet extended release 24 hr 100 mg PO DAILY Rx Instructions: MED LIST PER PCP STATES DOSE IS 100MG TAB--1/2 TAB DAILY--STACIE GUZMAN atorvastatin 40 mg tablet 80 mg PO HS Discharge Instructions Instructions: Weakness (ED) Additional Instructions: At this time your CAT scan shows no evidence of tumor or mass or stroke. However your cervical spine does show some movement of your spinal column. This is likely causing a pinching of your spinal nerves, and causing your weakness and numbness. Please follow-up closely with the neurologist and your family doctor for reassessment and further nerve testing. You will likely need an MRI shortly for further evaluation. In the meantime our case therapist have set up home health assistance to help you in your tasks at home. If you notice any worsening of your symptoms, or any new symptoms such as vomiting, diarrhea, fever, chills, shortness of breath, chest pain, numbness, weakness, or fainting , please return immediately to the emergency department for reevaluation. Please follow up with your primary care provider as soon as possible for reassessment and reevaluation. As always, it was a pleasure participating in your medical care today. Referrals: Ac Romeo MD [Primary Care Provider] - Irene Beyer MD [ [facility] STAFF PHYSICIAN] - Medical Decision Making 80-year-old male with a past medical history of congestive heart failure, chronic shortness of breath, cardiac disease with stent, who is a palliative care patient, who presents today for evaluation of upper extremity weakness. Patient states that for the past 4 to 5 months he has had weakness in his arms and hands. He feels like he is dropping things more often than normal. He denies any fall or trauma. He states that his hands are feeling tingly like there are light hairs running over them. He denies any neck pain or headache. He denies any arm pain. He denies any acute changes. No other complaints at this time. Exam demonstrates intact nutritionist public health strength and arm strength of the upper extremities bilaterally however although 5 out of 5 to nutritionist public health strength does appear to be slightly weak. He is not able to hold his arms up at shoulder height for long at all. Sensation is intact for his hands, but certainly slightly diminished. Capillary refill is brisk in all extremities. There does not appear to be any asymmetric swelling or edema. Legs demonstrate good strength, but he does have some weakness with walking and some mild hesitancy. No focal deficits otherwise. Differential was concerning for thoracic outlet syndrome, brain tumor, or radiculopathy or cord etiology. CT scan was ordered of the head and neck, and although the patient does have notable diminishment of brain size, there is no evidence of acute bleed per radiology. He does have evidence of anterolisthesis on C3 and C4 and disc space narrowing at C5 and C6 and notable osteophytes. I suspect these are certainly causing peripheral radiculopathy. However with the anterior listhesis, this also does bring about concern for central cord syndrome. All this does not appear to be an acute scenario at this time, I do feel that this does require urgent follow-up and reassessment. He will likely need MRI on an outpatient basis, we have placed a neurology referral for definitive nerve conduction study testing. Discussed red flags for which to return. Additionally we have had case management come and evaluate the patient and they we will be adding services to him at home which I think would be very beneficial to him. We will have home health and PT come and evaluate him. I have extensively reviewed the treatment plan and discharge instructions with the patient. I have addressed all patient concerns at this time. The patient was made aware of what symptoms to monitor for that would warrant a return to the emergency department. Discussed the plan with the patient, they demonstrate verbal understanding and agreement with our assessment and plan at this time. The documentation in this chart was dictated using [employer] dictation software. Please excuse any dictation errors. CERVICAL SPINE: There is no evidence of acute fracture. Anterolisthesis of C 3 upon C4 again noted with approximately 5 millimeters anterior slippage of C3 upon C4, this related to degenerative facet joint changes. Also chronic disc space narrowing at C5-6 again noted and bilateral Luschka joint osteophytes at this level. Other disc spaces exhibit normal height with the exception of some sys of significant narrowing at C3-4 level, this being the level of the listhesis. Moderate multilevel facet arthropathy. There is no significant facet joint malalignment. No significant osseous lesions evident. BRAIN: There are no skull fractures nor fluid in the visualized paranasal sinuses. There is no evidence of intracranial hemorrhage, mass effect, or shift of midline structures. There are no extra-axial fluid collections. The ventricles are not enlarged or shifted and there is no blood within the ventricular system nor within the basal cisterns. There is heavy calcification noted in the left vertebral artery again noted at skull base level. Bilateral atrophy again noted IMPRESSION: No acute intracranial findings on this noninfused CT scan of the brain.Atrophy again noted. Heavy calcification left vertebral artery at the skull base noted indicating atherosclerotic involvement in the vertebral basilar system. Chronic degenerative changes in the cervical spine again noted including anterior listhesis of C3 upon C4 related to advanced facet arthrosis. No acute cervical spine fractures nor acute compromise the cervical spinal canal. HPI General Date/Time Provider Initiated Documentation: 11/12/21 13:57 . HPI Narrative: 80-year-old male with a past medical history of congestive heart failure, chronic shortness of breath, cardiac disease with stent, who is a palliative care patient, who presents today for evaluation of upper extremity weakness. Patient states that for the past 4 to 5 months he has had weakness in his arms and hands. He feels like he is dropping things more often than normal. He denies any fall or trauma. He states that his hands are feeling tingly like there are light hairs running over them. He denies any neck pain or headache. He denies any arm pain. He denies any acute changes. No other complaints at this time. Related Data Home Medications Medication Instructions Recorded Confirmed nitroglycerin 0.4 mg sublingual 0.4 mg sublingual PRN PRN 12/31/12 11/12/21 tablet aspirin 81 mg tablet,delayed 81 mg PO DAILY 10/28/15 11/12/21 release (Aspir-) allopurinol 100 mg tablet 100 mg PO DAILY #0 tabs 04/16/20 11/12/21 atorvastatin 40 mg tablet 80 mg PO HS 05/05/20 11/12/21 valsartan 40 mg tablet (Diovan) 20 mg PO BID #60 tabs 10/17/20 11/12/21 eplerenone 25 mg tablet 12.5 mg PO QAM 03/10/21 11/12/21 furosemide 40 mg tablet 40 mg PO BID@0830,1200 03/10/21 11/12/21 acetaminophen 650 mg 650 mg PO Q6H PRN PRN 10/03/21 11/12/21 tablet,extended release (Tylenol Arthritis Pain) metoprolol succinate 25 mg 100 mg PO DAILY 10/03/21 11/12/21 tablet,extended release 24 hr Previous Rx's Medication Instructions Recorded allopurinol 100 mg tablet 100 mg PO DAILY #0 tabs 04/16/20 valsartan 40 mg tablet (Diovan) 20 mg PO BID #60 tabs 10/17/20 Allergies Allergy/AdvReac Type Severity Reaction Status Date / Time amlodipine AdvReac Intermediate Swelling/Ed Unverified 11/12/21 13:47 lottie enalapril maleate AdvReac Intermediate cough Unverified 11/12/21 13:47 [From Vasotec] enalaprilat dihydrate AdvReac Intermediate cough Unverified 11/12/21 13:47 [From Vasotec] spironolactone AdvReac Unknown Other (See Unverified 11/12/21 13:47 Comment) General Stated Complaint: GenMedical RUPESH: 3 Review of Systems All systems reviewed & are unremarkable except as noted in HPI and below PFSH All Active Problems Decreased nutritionist public health strength (Acute) Degenerative arthritis of cervical spine (Acute) Bilateral arm weakness (Acute) Bilateral hearing loss (Acute) YAHIR (obstructive sleep apnea) (Chronic) Night terrors (Acute) 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) CHF (congestive heart failure) (Chronic) Dyspnea (Acute) CHF (congestive heart failure) (Chronic) Acute exacerbation of CHF (congestive heart failure) (Acute) Pleural effusion (Acute) Anasarca (Acute) Dizziness (Acute) Dizziness (Acute) Congestive heart failure (Chronic) Contusion of hand, left (Acute) Contusion of hip, left (Acute) Mild dehydration (Acute) Fracture of triquetral bone of left wrist (Acute) Carotid stenosis, right (Acute) Acute exacerbation of CHF (congestive heart failure) (Acute) Dysphasia (Acute) Internal carotid artery occlusion (Acute) LEFT Acute kidney injury superimposed on chronic kidney disease (Acute) Dysarthria (Acute) Abdominal pain (Acute) Shortness of breath (Acute) Dizziness (Acute) Pleural effusion on right (Chronic) Palpitations (Acute) Calcific tendinitis of right shoulder (Acute) Cervical spinal stenosis (Acute) DNI (do not intubate) (Acute) DNR (do not resuscitate) (Acute) POLST (Physician Orders for Life-Sustaining Treatment) (Acute) Hypoxia (Chronic) Right shoulder pain (Acute) At risk for aspiration (Acute) Weakness generalized (Acute) Acute hypernatremia (Acute) Mental status, decreased (Acute) Discharge planning issues (Acute) DVT prophylaxis (Acute) Bladder neck contracture (Acute) Prostate cancer (Chronic) Chronic kidney disease (Chronic) STAGE 3 Hypercholesterolemia (Chronic) Hypertension (Chronic) CAD (coronary artery disease) (Chronic) Ischemic cardiomyopathy (Chronic) Heart failure, chronic, with acute decompensation (Acute 12/31/12) Bladder outlet obstruction (Chronic) Medical History Ascites CHF (congestive heart failure) Combined systolic/diastolic, EF 50% by echo in 03/19 Chronic shortness of breath Cirrhosis History of carcinoma in situ of prostate DESAI (nonalcoholic steatohepatitis) Palliative care patient Pleural effusion, right Surgical History History of heart artery stent S/P prostatectomy Status post THR (total hip replacement) Family History Son No problems noted. Social History Smoking/Tobacco Use Status: Never Smoking risk assessment performed?: Yes Alcohol Intake: former Drug use: Never Substance use type: does not use Caregiver/Support person: Yes Communication Needs: Hard of Hearing and Corrective Lenses Education Level: high school Do you need help understanding health information?: Always Current gender identity: male How often do you talk on the phone with friends or family?: three or more times per week How often do you get together with friends or relatives?: three or more times per week Panel score (0-1 are the most socially isolated patients): 1 What type of physical activity do you participate in: walking Duration: 15-30 minutes/day Special deanna needs: No Seatbelt use: always Do you feel safe at home: Yes Do you feel safe in your relationship?: Yes Additional Social history: Son Berto is his main person who helps care for him. He is a , but was posted in [place] during the [employer] era. He has insurance with both medicare and [email or web address]. Exam Narrative Exam Narrative: 1.Const: Well-nourished, Well-developed, appearing stated age 2.Eyes: PERRL, no conjunctival injection, and symmetrical lids. 3.ENT: Atraumatic external nose and ears. Moist MM. Neck: Symmetric, trachea midline, No thyromegaly. 4.CVS: +S1/S2, No murmurs or gallops. Peripheral pulses 2+ and equal in all extremities. Brisk capillary refill in all extremities. 5.RESP: Unlabored respiratory effort. Clear to auscultation bilaterally. No wheezes rales or rhonchi 6.GI: Soft, Nontender/Nondistended, No hepatosplenomegaly. No guarding or rebound. 7.MSK: Patient demonstrates intact nutritionist public health strength for his upper extremities, 5 out of 5 strength for the upper extremities as well. There does appear to be wasting of the thenar eminences bilaterally. No severe wasting of the hands in general though. Patient does have significant difficulty holding his arms up at shoulder height. Sensation is intact for all fingers, however two-point discrimination is not. Patient is able to feel light touch on his fingertips, but this appears to be intermittent. Lower extremities demonstrate 5 out of 5 strength bilaterally, patient is able to walk but with some degree of hesitancy. 8.Skin: Warm, Dry. No rashes or lesions. 9.Neuro: manager brand II-XII grossly intact. Sensation grossly intact, no focal neurologic deficits. Please see musculoskeletal exam 10.Psych: (AAO) x3. Appropriate mood and affect Course Vital Signs Vital signs: Vital Signs Temperature 36.6 C 11/12/21 13:44 Pulse 66 11/12/21 13:44 Respiratory Rate 18 11/12/21 13:44 Blood Pressure 148/75 H 11/12/21 13:44 Pulse Oximetry 97 11/12/21 13:44 Temperature 36.6 C 11/12/21 13:44 Temperature Source Temporal Artery Scan 11/12/21 13:44 Pulse 66 11/12/21 13:44 Respiratory Rate 18 11/12/21 13:44 Blood Pressure 148/75 H 11/12/21 13:44 Blood Pressure Position Sitting 11/12/21 13:44 Pulse Oximetry 97 11/12/21 13:44 Oxygen Delivery Method Room Air 11/12/21 13:44 Oxygen Flow Rate 0 11/12/21 13:44
[2021-11-12 17:19] VITALS: RESP 18
--- NOTE | 2021-11-13 00:36 | NUR.NOTE ---
Faxed referral to [facility] Neurology per Dr. Lowry for follow up in one week for upper extremity weakness.Nursing Note:
--- NOTE | 2021-11-15 08:43 | PDOC.ERCMACT ---
- If Service Date Differs Date of service: 11/12/21 Time of Service: 08:44 Care Management Activity Note Joaquín presents in the ED for bilateral arm weakness. At the request of ED provider, CM meets with Joaquín to offer resources. Joaquín reports he lives alone and states he is struggling to care for myself due to back pain and weakness in his arms and hands. We discuss that Home Health PT and OT could help him regain some strength. Joaquín is agreeable to CM making a referral to Home Health. Referral faxed to [facility] for new PT, OT and [facility] services.
== END 2021-11-12 17:50 | disposition home or self-care (01) ==
PROVIDERS: Emergency Provider Student in an Organized Health Care Education/Training Program; PCP Family Medicine
DX: R29.898 Other symptoms and signs involving the musculoskeletal system (principal); I50.9 Heart failure, unspecified; Z95.5 Presence of coronary angioplasty implant and graft; Z79.82 Long term (current) use of aspirin
CPT/HCPCS: 99284; 70450; 72125; 99282

== ENCOUNTER 2021-11-24 15:14 | Inpatient (IN) | payer MEDICARE, OTHER, SELFPAY ==
[2021-11-24 15:24] VITALS: BP 161/77; PULSE 72; RESP 18; TEMP 36.7; O2SAT 94
[2021-11-24 15:36] VITALS: O2SAT 91
[2021-11-24 15:40] VITALS: O2SAT 93
--- NOTE | 2021-11-24 15:45 | DI.MRI_ITS ---
Exam(s) MR THORACIC SPINE WO EXAM: MR THORACIC SPINE WO CLINICAL HISTORY: sent by pcp, profound upper and lower ext weakness. TECHNIQUE: Multiplanar multisequence MRI of the Thoracic spine was performed. COMPARISON: No previous for comparison. FINDINGS: The examination is limited due to patient motion artifact.. Bones: The vertebral body heights are well maintained. Alignment is satisfactory. The signal characte ristics are unremarkable. Mild degenerative changes are seen in the spine. Cord: The thoracic cord is normal size and signal intensity. No intrinsic cord lesion is present. Discs: No disc herniation or bulge is present. Soft tissues: Normal. T8-9: No disc herniation or bulge is identified. No significant central spinal canal stenosis. Mild bilateral neural foraminal narrowing. IMPRESSION: 1. No significant central spinal canal stenosis or cord compression. 2. Mild neural foraminal stenosis at T8-T9. DATA REPOSITORY:
--- NOTE | 2021-11-24 15:45 | DI.CT_ITS ---
Exam(s) CT HEAD WO EXAM: CT HEAD WO CLINICAL HISTORY: fall, weakness, r/o bleed. TECHNIQUE: Imaging Protocol: Axial computed tomography images with coronal and sagittal reformatted images were created and reviewed COMPARISON: CT CT HEAD CERVICAL SPINE WO from 11/12/2021 FINDINGS: Ventricles and Extra axial spaces: Normal in size and morphology for the patient's age. Extra-axial s paces are stable. Hemorrhage: None. Cerebral parenchyma: There are areas of decreased attenuation in the white matter consistent with sma ll vessel ischemic disease. No acute territorial infarct. Midline shift: None. Brainstem/Cerebellum: Normal. Calvarium: Normal. Visualized Paranasal sinuses/Mastoids: Clear. Soft Tissues: Unremarkable. IMPRESSION: 1. No acute intracranial process. 2. Follow-up CT head as clinically indicated. RADIATION DOSE DELIVERED: 742.46mGy.cm Total DLP DATA REPOSITORY: All CT scans at this facility are submitted to the National Radiology Data Registry (NRDR) Dose Index Registry (DIR) with the [employer] (ACR). RADIATION OPTIMIZATION: All CT scans at this facility use at least one of these dose optimization te chniques: automated exposure control; mA and/or kV adjustment per patient size (includes targeted exa ms where dose is matched to clinical indication); or iterative reconstruction.
--- NOTE | 2021-11-24 15:45 | DI.MRI_ITS ---
Exam(s) MR LUMBAR SPINE WO EXAM: MR LUMBAR SPINE WO CLINICAL HISTORY: sent by pcp, profound upper and lower ext weakness. TECHNIQUE: Multiplanar multisequence MRI of the Lumbar spine was performed. COMPARISON: No priors for comparison. FINDINGS: The examination is limited due to patient motion artifact. Bones: The last intervertebral disc space is designated the L5/S1 level for the numbering purpose of this examination. The vertebral body heights are well maintained. Alignment is satisfactory. The si gnal characteristics are unremarkable. Cord: The conus tip ends at the T12 level. It is of normal size and signal intensity. T12-L1: No disc herniations or bulges are present. No central spinal canal or neural foraminal stenos is. L1-2: No disc herniations or bulges are present. No central spinal canal or neural foraminal stenosis . L2-3: There is a mild diffuse disc bulge. No central spinal canal or neural foraminal stenosis. L3-4: There is a mild diffuse disc bulge and facet arthropathy. No significant central spinal canal stenosis is seen. There is mild narrowing of the neural foramen bilaterally. L4-5: There is a mild diffuse disc bulge. Facet arthropathy is present. Very mild narrowing of the central spinal canal is noted. No significant neural foraminal stenosis is seen. L5-S1: There is a diffuse disc bulge. Facet arthropathy is present. No significant central spinal c anal stenosis is seen. There is mild bilateral neural foraminal stenosis, left greater than right. Soft tissues: The visualized SI joints and sacrum are well maintained. The paraspinal soft tissues ar e unremarkable. Visualized abdominal organs: Note is made of bilateral simple renal cysts. IMPRESSION: 1. Examination limited by patient motion artifact. 2. Two-level degenerative changes in the lumbar spine resulting in central spinal canal neural forami nal stenosis as described above. DATA REPOSITORY:
--- NOTE | 2021-11-24 15:47 | DI.MRI_ITS ---
Exam(s) MR CERVICAL SPINE WO EXAM: MR CERVICAL SPINE WO CLINICAL HISTORY: sent by pcp, profound upper and lower ext weakness TECHNIQUE: Multiplanar multisequence MRI of the cervical spine was performed without intravenous con trast. COMPARISON: MR MR CERVICAL SPINE WO from 04/10/2020 FINDINGS: The examination is limited due to patient motion artifact. BONES: Multilevel degenerative disc disease and facet arthropathy. Disc heights appear within normal limits. There is 3 mm anterolisthesis of C3 on C4. Bone marrow signal intensity is within normal li mits apart from the degenerative changes. CERVICAL CORD: Craniovertebral junction is unremarkable. The cervical cord is normal size and signal intensity. SOFT TISSUES: Unremarkable. C2-3: No disc herniation or bulge is identified. No significant central spinal canal or neural forami nal stenosis. C3-4: There is prominence of the osteophyte disc complex. This in conjunction with the anterolisthes is causes central spinal canal stenosis. There is an AP diameter of 4.4 mm. Compression of the spin al cord is noted. Moderately severe bilateral neural foraminal stenosis is present. C4-5: There is prominence of the osteophyte disc complex. Mild to moderate narrowing of the AP diame ter of the central spinal canal is noted. Moderately severe bilateral neural foraminal stenosis is s een, left greater than right. C5-6: There is prominence of the osteophyte disc complex. AP diameter of the central spinal canal is 9 mm. Moderately severe right and moderate left neural foraminal stenosis is present. C6-7: No disc herniation or bulge is identified. No significant central spinal canal or neural forami nal stenosis C7-T1: No disc herniation or bulge is identified. No significant central spinal canal or neural corina inal stenosis IMPRESSION: 1. Multilevel cervical spondylosis. 2. Findings are most marked at C3-C4 there is also anterolisthesis present. These contribute to caus e severe central spinal canal stenosis and compression of the spinal cord. Bilateral neural foramina l stenosis is also present. 3. Central spinal canal neural foraminal stenosis is also noted at C4-C5. DATA REPOSITORY:
--- NOTE | 2021-11-24 16:15 | W.ED.GENAD ---
Discharge Plan Disposition Patient Disposition: STILL A PATIENT Condition: Stable Discharge Details Chief Complaint: Nk/Back Pain Clinical Impression: Bilateral arm weakness, Bilateral leg weakness Primary Care Provider: Ac Romeo ED Provider: Jaziel Lowry Home Meds and New Rx's Prescriptions: No Action nitroglycerin 0.4 MG tablet, sublingual 0.4 mg Sublingual PRN PRN Label Comments: pt reports that he thinks he took one of these a week ago 03/15/15 aspirin [Aspir-81] 81 MG tablet,delayed release (DR/EC) 81 mg PO DAILY allopurinol 100 MG tablet 100 mg PO DAILY Qty: 0 0RF valsartan [Diovan] 40 mg tablet 20 mg PO BID Qty: 60 0RF eplerenone 25 mg tablet 12.5 mg PO QAM furosemide 40 mg tablet 40 mg PO BID@0830,1200 acetaminophen [Tylenol Arthritis Pain] 650 MG tablet extended release 650 mg PO Q6H PRN PRN metoprolol succinate 25 mg tablet extended release 24 hr 100 mg PO DAILY Rx Instructions: MED LIST PER PCP STATES DOSE IS 100MG TAB--1/2 TAB DAILY--STACIE GUZMAN atorvastatin 40 mg tablet 80 mg PO HS Medical Decision Making 80-year-old male with a past medical history of obstructive sleep apnea, CHF, cirrhosis, [place], coronary artery disease with stent, prostatectomy, who presents today for 1 year of upper and lower extremity weakness. Patient states that over the last year he has noticed increasing weakness for his legs and his arms, over the last few months he has noticed that he can no longer grab things, things slipped out of his hands, he has difficulty walking and ambulating. He does have prostate issues but he denies any bowel or bladder incontinence. He does use a walker at home, and does receive help from his son who lives just down the road. He did see his primary care provider today who noticed concerning physical exam findings and patient was sent to the ER for MRI and potential admission. Patient denies any trauma in the last few days but does admit to falling and hitting his head about a week ago. He admits to some mild left hip pain and mild back achiness throughout but no focal pain. He does admit to increased tingling in the groin area, but denies any bowel or bladder incontinence. He denies any chest pain or shortness of breath. No other complaints at this time. Upper extremities demonstrate notable weakness, inability to raise his arms above his shoulders, diminished senior power scheduler strength worse on the right than the left with thenar wasting bilaterally. Legs are also notably weak with about 3 out of 5 strength bilaterally, saddle sensation is intact but slightly atypical per the patient. Rectal tone is normal, and good perirectal sensation is present. Differential is highest for spinal pathology, uncertain if it is a proximal or distal issue due to the global component. Even though it is late in the evening the MRI team has graciously agreed to stay later to help complete the patient studies. We will get an MRI of the cervical thoracic and lumbar spine, as well as a CT scan of the head. We will monitor closely and reassess. [address] scan of the head has returned and demonstrates evidence of what appears to be a chronic small subdural. No other significant acute process though. MRI of the cervical thoracic and lumbar spine shows moderate to severe compression of the spinal cord at C3-C4, and moderate central canal stenosis and moderate foraminal stenosis at C4 and C5. There is foraminal stenosis at T8 and T9, and moderate foraminal stenosis at L5 and S1. No significant central canal stenosis though. Cauda equina appears uncompressed. I had a long discussion with the patient, and unfortunately we have no [facility] beds available at this time. Due to the time of the evening we do not have physical therapy, OT, or the ability to start any home health. With all that being understood, and the patient's challenges, through shared decision-making process the patient has agreed to stay. We will keep him in the ER this evening and have physical therapy and case management see him in the morning. We did contact [facility] neurosurgery, and spoke with Janie from the neurosurgery team. She did review the images, and based on the patient's symptoms she does not recommend any acute surgical interventions at this time. She does recommend repeat CT scan in the morning to make sure that the subdural is unchanged even though it is chronic. We will continue to monitor patient here in the ED and have him reassessed in the morning by OT him physical therapy and case management. FINDINGS: Bones/joints: Anterolisthesis of C3 on C4 is presumed degenerative. Discogenic endplate signal changes at C3-C4. No edema Spinal cord: Moderate to severe compression at C3-C4 with minimal vague signal abnormality C2-C3: No significant disc disease. No significant spinal stenosis. C3-C4: Moderate to severe spinal stenosis. Severe foraminal stenosis C4-C5: Moderate spinal stenosis. Moderate foraminal stenosis C5-C6: No significant disc disease. No significant spinal stenosis. C6-C7: No significant disc disease. No significant spinal stenosis. C7-T1: No significant disc disease. No significant spinal stenosis. Soft tissues: Unremarkable. Vasculature: Expected flow voids in the vertebral arteries. IMPRESSION: Moderate to severe compression of the spinal cord at C3-C4 and severe foraminal stenosis. Moderate central canal stenosis and moderate foraminal stenosis at C4-C5 Thank you for allowing us to participate in the care of your patient. Dictated and Authenticated by: Carlos Vargas MD 11/24/2021 5:11 PM Eastern Time ([place] & [place]) FINDINGS: Bones/joints: Height and alignment are grossly maintained. Mild irregularity to the T8-T9 endplates without edema or fluid in the disc space. Mild discogenic endplate signal changes Spinal cord: Signal in caliber are grossly maintained Discs/Spinal canal/Neural foramina: No significant disc disease. No significant spinal canal stenosis. Foraminal stenosis noted at T8-T9 greater on the left Soft tissues: Unremarkable. IMPRESSION: No significant central canal stenosis Foraminal stenosis at T8-T9 greater on the left Thank you for allowing us to participate in the care of your patient. Dictated and Authenticated by: Carlos Vargas MD 11/24/2021 5:11 PM Eastern Time ([place] & [place]) FINDINGS: Bones/joints: Minimal anterolisthesis of L5 on S1 is presumed degenerative. Vertebral body height and marrow signal are otherwise grossly maintained. No edema Spinal cord: Visualized cord, conus medullaris and cauda equina are unremarkable without compression. L1-L2: No significant disc disease. No significant spinal canal stenosis. No neural foraminal stenosis. L2-L3: No significant disc disease. No significant spinal canal stenosis. No neural foraminal stenosis. L3-L4: No significant disc disease. No significant spinal canal stenosis. No neural foraminal stenosis. L4-L5: No significant disc disease. No significant spinal canal stenosis. No neural foraminal stenosis. L5-S1: No significant spinal canal stenosis. Moderate neural foraminal stenosis. Soft tissues: Unremarkable. IMPRESSION: Moderate foraminal stenosis at L5-S1 No significant central canal stenosis Thank you for allowing us to participate in the care of your patient. FINDINGS: Brain:Chronic left-sided subdural collection versus prominence of the extra-axial spaces, grossly stable. Mild thickening of the falx slightly increased in prominence No hemorrhage.Grossly stable white matter disease No mass effect. Cerebral ventricles: No ventriculomegaly. Paranasal sinuses: Visualized sinuses are unremarkable. No fluid levels. Mastoid air cells: Visualized mastoid air cells are well aerated. Bones/joints: Unremarkable. No acute fracture. Soft tissues: Unremarkable. IMPRESSION: No acute intracranial hemorrhage noted Grossly stable presumed chronic left-sided subdural collection. Minimal interval increased prominence of the falx presumably representing subacute to chronic blood products Continued head CT follow-up as clinically indicated HPI General Date/Time Provider Initiated Documentation: 11/24/21 15:47. HPI Narrative: 80-year-old male with a past medical history of obstructive sleep apnea, CHF, cirrhosis, [place], coronary artery disease with stent, prostatectomy, who presents today for 1 year of upper and lower extremity weakness. Patient states that over the last year he has noticed increasing weakness for his legs and his arms, over the last few months he has noticed that he can no longer grab things, things slipped out of his hands, he has difficulty walking and ambulating. He does have prostate issues but he denies any bowel or bladder incontinence. He does use a walker at home, and does receive help from his son who lives just down the road. He did see his primary care provider today who noticed concerning physical exam findings and patient was sent to the ER for MRI and potential admission. Patient denies any trauma in the last few days but does admit to falling and hitting his head about a week ago. He admits to some mild left hip pain and mild back achiness throughout but no focal pain. He does admit to increased tingling in the groin area, but denies any bowel or bladder incontinence. He denies any chest pain or shortness of breath. No other complaints at this time. Related Data Home Medications Medication Instructions Recorded Confirmed nitroglycerin 0.4 mg sublingual 0.4 mg sublingual PRN PRN 12/31/12 11/12/21 tablet aspirin 81 mg tablet,delayed 81 mg PO DAILY 10/28/15 11/12/21 release (Aspir-) allopurinol 100 mg tablet 100 mg PO DAILY #0 tabs 04/16/20 11/12/21 atorvastatin 40 mg tablet 80 mg PO HS 05/05/20 11/12/21 valsartan 40 mg tablet (Diovan) 20 mg PO BID #60 tabs 10/17/20 11/12/21 eplerenone 25 mg tablet 12.5 mg PO QAM 03/10/21 11/12/21 furosemide 40 mg tablet 40 mg PO BID@0830,1200 03/10/21 11/12/21 acetaminophen 650 mg 650 mg PO Q6H PRN PRN 10/03/21 11/12/21 tablet,extended release (Tylenol Arthritis Pain) metoprolol succinate 25 mg 100 mg PO DAILY 10/03/21 11/12/21 tablet,extended release 24 hr Previous Rx's Medication Instructions Recorded allopurinol 100 mg tablet 100 mg PO DAILY #0 tabs 04/16/20 valsartan 40 mg tablet (Diovan) 20 mg PO BID #60 tabs 10/17/20 Allergies Allergy/AdvReac Type Severity Reaction Status Date / Time amlodipine AdvReac Intermediate Swelling/Ed Unverified 11/12/21 13:47 lottie enalapril maleate AdvReac Intermediate cough Unverified 11/12/21 13:47 [From Vasotec] enalaprilat dihydrate AdvReac Intermediate cough Unverified 11/12/21 13:47 [From Vasotec] spironolactone AdvReac Unknown Other (See Unverified 11/12/21 13:47 Comment) General Stated Complaint: Nk/Back Pain RUPESH: 3 Review of Systems All systems reviewed & are unremarkable except as noted in HPI and below PFSH All Active Problems (Updated 11/24/21 @ 22:38 by Jaziel Lowry DO) Decreased senior power scheduler strength (Acute) Degenerative arthritis of cervical spine (Acute) Bilateral arm weakness (Acute) Bilateral arm weakness (Acute) Bilateral leg weakness (Acute) Bilateral hearing loss (Acute) YAHIR (obstructive sleep apnea) (Chronic) Night terrors (Acute) 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) CHF (congestive heart failure) (Chronic) Dyspnea (Acute) CHF (congestive heart failure) (Chronic) Acute exacerbation of CHF (congestive heart failure) (Acute) Pleural effusion (Acute) Anasarca (Acute) Dizziness (Acute) Dizziness (Acute) Congestive heart failure (Chronic) Contusion of hand, left (Acute) Contusion of hip, left (Acute) Mild dehydration (Acute) Fracture of triquetral bone of left wrist (Acute) Carotid stenosis, right (Acute) Acute exacerbation of CHF (congestive heart failure) (Acute) Dysphasia (Acute) Internal carotid artery occlusion (Acute) LEFT Acute kidney injury superimposed on chronic kidney disease (Acute) Dysarthria (Acute) Abdominal pain (Acute) Shortness of breath (Acute) Dizziness (Acute) Pleural effusion on right (Chronic) Palpitations (Acute) Calcific tendinitis of right shoulder (Acute) Cervical spinal stenosis (Acute) DNI (do not intubate) (Acute) DNR (do not resuscitate) (Acute) POLST (Physician Orders for Life-Sustaining Treatment) (Acute) Hypoxia (Chronic) Right shoulder pain (Acute) At risk for aspiration (Acute) Weakness generalized (Acute) Acute hypernatremia (Acute) Mental status, decreased (Acute) Discharge planning issues (Acute) DVT prophylaxis (Acute) Bladder neck contracture (Acute) Prostate cancer (Chronic) Chronic kidney disease (Chronic) STAGE 3 Hypercholesterolemia (Chronic) Hypertension (Chronic) CAD (coronary artery disease) (Chronic) Ischemic cardiomyopathy (Chronic) Heart failure, chronic, with acute decompensation (Acute 12/31/12) Bladder outlet obstruction (Chronic) Medical History Ascites CHF (congestive heart failure) Combined systolic/diastolic, EF 50% by echo in 03/19 Chronic shortness of breath Cirrhosis 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 Social History Smoking/Tobacco Use Status: Never Smoking risk assessment performed?: Yes Alcohol Intake: former Drug use: Never Substance use type: does not use Caregiver/Support person: Yes Communication Needs: Hard of Hearing and Corrective Lenses Education Level: high school Do you need help understanding health information?: Always Current gender identity: male How often do you talk on the phone with friends or family?: three or more times per week How often do you get together with friends or relatives?: three or more times per week Panel score (0-1 are the most socially isolated patients): 1 What type of physical activity do you participate in: walking Duration: 15-30 minutes/day Special deanna needs: No Seatbelt use: always Do you feel safe at home: Yes Do you feel safe in your relationship?: Yes Additional Social history: Son Berto is his main person who helps care for him. He is a , but was posted in [place] during the [employer] era. He has insurance with both medicare and [employer] Exam Narrative Exam Narrative: 1.Const: Well-nourished, Well-developed, appearing stated age 2.Eyes: PERRL, no conjunctival injection, and symmetrical lids. 3.ENT: Atraumatic external nose and ears. Moist MM. Neck: Symmetric, trachea midline, No thyromegaly. 4.CVS: +S1/S2, No murmurs or gallops. Peripheral pulses 2+ and equal in all extremities. Brisk capillary refill in all extremities. 5.RESP: Unlabored respiratory effort. Clear to auscultation bilaterally. No wheezes rales or rhonchi 6.GI: Soft, Nontender/Nondistended, No hepatosplenomegaly. No guarding or rebound. 7.MSK: Normocephalic/Atraumatic, Extremities w/o deformity or ttp . Upper extremities demonstrate mild weakness. Diminished senior power scheduler strength, with increased weakness for the right senior power scheduler strength. Thumb demonstrates notable weakness in all movement aspect on the right, with notable deconditioning at the thenar eminence. Left hand is slightly stronger, with slightly more thumb strength. Slightly less thenar and hand wasting. Patient demonstrates good flexion at the elbow, but he is unable to lift his arm above the height of his shoulders. Sensation is slightly diminished but intact in all hands and fingers. Capillary refill brisk. Pulses intact. Lower extremities demonstrate diminished strength bilaterally, strength is roughly 3 out of 5. Present but slightly diminished dorsiflexion of the great toe bilaterally, diminished plantar flexion and dorsiflexion. Patient does have what he describes as a weird sensation on palpation of the saddle region, but sensation is intact. Rectal exam demonstrates intact rectal tone and good perirectal sensation. No midline cervical thoracic or lumbar spine tenderness 8.Skin: Warm, Dry. No rashes or lesions. 9.Neuro: laboratory director II-XII grossly intact. Sensation grossly intact. Please see musculoskeletal 10.Psych: (AAO) x3. Appropriate mood and affect Course Vital Signs Vital signs: Vital Signs Temperature 36.7 C 11/24/21 15:24 Pulse 72 11/24/21 15:24 Respiratory Rate 18 11/24/21 15:24 Blood Pressure 161/77 H 11/24/21 15:24 Pulse Oximetry 94 11/24/21 15:24 Temperature 36.7 C 11/24/21 15:24 Temperature Source Tympanic 11/24/21 15:24 Pulse 72 11/24/21 15:24 Respiratory Rate 18 11/24/21 15:24 Respiratory Effort 11/24/21 15:27 Blood Pressure 161/77 H 11/24/21 15:24 Blood Pressure Position Supine 11/24/21 15:24 Pulse Oximetry 94 11/24/21 15:24 Oxygen Delivery Method Room Air 11/24/21 15:24 Oxygen Flow Rate 0 11/24/21 15:24 Pain Level 9 11/24/21 15:24
--- NOTE | 2021-11-24 17:12 | DI.VRAD_ITS ---
PROCEDURE INFORMATION: Exam: MR Lumbar Spine Without Contrast Exam date and time: 11/24/2021 4:03 PM Age: 80 years old Clinical indication: Patient HX: Profound upper and lower extremity weakness TECHNIQUE: Imaging protocol: Magnetic resonance imaging of the lumbar spine without contrast. COMPARISON: CT THORACIC LUMBAR SPINE REC 10/03/2021 12:38 PM FINDINGS: Bones/joints: Minimal anterolisthesis of L5 on S1 is presumed degenerative. Vertebral body height and marrow signal are otherwise grossly maintained. No edema Spinal cord: Visualized cord, conus medullaris and cauda equina are unremarkable without compression. L1-L2: No significant disc disease. No significant spinal canal stenosis. No neural foraminal stenosis. L2-L3: No significant disc disease. No significant spinal canal stenosis. No neural foraminal stenosis. L3-L4: No significant disc disease. No significant spinal canal stenosis. No neural foraminal stenosis. L4-L5: No significant disc disease. No significant spinal canal stenosis. No neural foraminal stenosis. L5-S1: No significant spinal canal stenosis. Moderate neural foraminal stenosis. Soft tissues: Unremarkable. IMPRESSION: Moderate foraminal stenosis at L5-S1 No significant central canal stenosis Dictated and Authenticated by: Carlos Vargas MD. Ordering:CARLOTA Sheriff MD
--- NOTE | 2021-11-24 17:12 | DI.VRAD_ITS ---
PROCEDURE INFORMATION: Exam: MR Cervical Spine Without Contrast Exam date and time: 11/24/2021 4:03 PM Age: 80 years old Clinical indication: Patient HX: Profound upper and lower extremity weakness TECHNIQUE: Imaging protocol: Magnetic resonance imaging of the cervical spine without contrast. COMPARISON: CT HEAD CERVICAL SPINE WO 11/12/2021 3:56 PM FINDINGS: Bones/joints: Anterolisthesis of C3 on C4 is presumed degenerative. Discogenic endplate signal changes at C3-C4. No edema Spinal cord: Moderate to severe compression at C3-C4 with minimal vague signal abnormality C2-C3: No significant disc disease. No significant spinal stenosis. C3-C4: Moderate to severe spinal stenosis. Severe foraminal stenosis C4-C5: Moderate spinal stenosis. Moderate foraminal stenosis C5-C6: No significant disc disease. No significant spinal stenosis. C6-C7: No significant disc disease. No significant spinal stenosis. C7-T1: No significant disc disease. No significant spinal stenosis. Soft tissues: Unremarkable. Vasculature: Expected flow voids in the vertebral arteries. IMPRESSION: Moderate to severe compression of the spinal cord at C3-C4 and severe foraminal stenosis. Moderate central canal stenosis and moderate foraminal stenosis at C4-C5 Dictated and Authenticated by: Carlos Vargas MD. Ordering:CARLOTA Sheriff MD
--- NOTE | 2021-11-24 17:12 | DI.VRAD_ITS ---
PROCEDURE INFORMATION: Exam: MR Thoracic Spine Without Contrast Exam date and time: 11/24/2021 4:03 PM Age: 80 years old Clinical indication: Patient HX: Profound upper and lower extremity weakness TECHNIQUE: Imaging protocol: Magnetic resonance imaging of the thoracic spine without contrast. COMPARISON: CT THORACIC LUMBAR SPINE REC 10/03/2021 12:38 PM FINDINGS: Bones/joints: Height and alignment are grossly maintained. Mild irregularity to the T8-T9 endplates without edema or fluid in the disc space. Mild discogenic endplate signal changes Spinal cord: Signal in caliber are grossly maintained Discs/Spinal canal/Neural foramina: No significant disc disease. No significant spinal canal stenosis. Foraminal stenosis noted at T8-T9 greater on the left Soft tissues: Unremarkable. IMPRESSION: No significant central canal stenosis Foraminal stenosis at T8-T9 greater on the left Dictated and Authenticated by: Carlos Vargas MD. Ordering:CARLOTA Sheriff MD
--- NOTE | 2021-11-24 17:31 | DI.VRAD_ITS ---
PROCEDURE INFORMATION: Exam: CT Head Without Contrast Exam date and time: 11/24/2021 5:20 PM Age: 80 years old Clinical indication: Injury or trauma; Blunt trauma (contusions or hematomas); Patient HX: Fall, weakness, R/O bleed TECHNIQUE: Imaging protocol: Computed tomography of the head without contrast. COMPARISON: CT HEAD CERVICAL SPINE WO 11/12/2021 3:56 PM FINDINGS: Brain:Chronic left-sided subdural collection versus prominence of the extra-axial spaces, grossly stable. Mild thickening of the falx slightly increased in prominence No hemorrhage.Grossly stable white matter disease No mass effect. Cerebral ventricles: No ventriculomegaly. Paranasal sinuses: Visualized sinuses are unremarkable. No fluid levels. Mastoid air cells: Visualized mastoid air cells are well aerated. Bones/joints: Unremarkable. No acute fracture. Soft tissues: Unremarkable. IMPRESSION: No acute intracranial hemorrhage noted Grossly stable presumed chronic left-sided subdural collection. Minimal interval increased prominence of the falx presumably representing subacute to chronic blood products Continued head CT follow-up as clinically indicated Dictated and Authenticated by: Carlos Vargas MD. Ordering:CARLOTA Sheriff MD
[2021-11-25] VITALS (9 sets, daily range): BP systolic 104–158; BP diastolic 69–82; PULSE 57–75; RESP 16–18; TEMP 36.4–36.7; O2SAT 85–93
--- NOTE | 2021-11-25 06:00 | DI.CT_ITS ---
Exam(s) CT HEAD WO EXAM: CT HEAD WO CLINICAL HISTORY: recheck for change in subdural. TECHNIQUE: Imaging Protocol: Axial computed tomography images with coronal and sagittal reformatted images were created and reviewed COMPARISON: CT CT HEAD WO from 11/24/2021 FINDINGS: Ventricles and Extra axial spaces: Normal in size and morphology for the patient's age. Hemorrhage: None. No subdural collection is identified. Cerebral parenchyma: No acute territorial infarct is present. There are areas of decreased attenuati on in the white matter consistent with small vessel ischemic disease. Midline shift: None. Brainstem/Cerebellum: Normal. Calvarium: Normal. Visualized Paranasal sinuses/Mastoids: Clear. Soft Tissues: Unremarkable. IMPRESSION: No acute intracranial process. RADIATION DOSE DELIVERED: 757.74mGy.cm Total DLP DATA REPOSITORY: All CT scans at this facility are submitted to the National Radiology Data Registry (NRDR) Dose Index Registry (DIR) with the [employer] (A[employer]). RADIATION OPTIMIZATION: All CT scans at this facility use at least one of these dose optimization te chniques: automated exposure control; mA and/or kV adjustment per patient size (includes targeted exa ms where dose is matched to clinical indication); or iterative reconstruction.
--- NOTE | 2021-11-25 06:45 | DI.VRAD_ITS ---
PROCEDURE INFORMATION: Exam: CT Head Without Contrast Exam date and time: 11/25/2021 5:58 AM Age: 80 years old Clinical indication: Abnormal findings; Mass, lump, or localized swelling of head; Other: Recheck for change in subdural TECHNIQUE: Imaging protocol: Computed tomography of the head without contrast. Radiation optimization: All CT scans at this facility use at least one of these dose optimization techniques: automated exposure control; mA and/or kV adjustment per patient size (includes targeted exams where dose is matched to clinical indication); or iterative reconstruction. COMPARISON: CT HEAD WO 11/24/2021 5:[address] brain 11/12/2021. FINDINGS: Generalized volume loss and periventricular white matter hypodensity consistent with chronic small vessel ischemic change.There is atherosclerotic calcification in the internal carotid and distal vertebral arteries . There is no evidence of intraparenchymal hemorrhage or mass effect.. No subdural collection seen. Prominence of the extra-axial spaces secondary to generalized volume loss. Ventricular size is concordant with degree of volume loss. Visualized intraorbital soft tissues are normal. The sinuses are well-aerated. IMPRESSION: No acute intracranial process. Dictated and Authenticated by: Darby Devi MD. Ordering:CARLOTA Sheriff MD
[2021-11-25] MEDS: Valsartan 40 MG TAB 20 MG PO ×2 (07:51→19:39)
[2021-11-25] MEDS: Allopurinol 100 MG TAB PO (07:51)
[2021-11-25] MEDS: Metoprolol CR 100 MG TABCR PO (07:51)
[2021-11-25] MEDS: Aspirin E.C. 81 MG TABEC PO (07:51)
[2021-11-25] MEDS: Furosemide 40 MG TAB PO ×2 (07:51→11:45)
--- NOTE | 2021-11-25 08:02 | NUR.NOTE ---
Nursing Note: Called patients son and left a message to bring one of his dads home medications (eplerenone) as we do not carry this med in hospital.
[2021-11-25] MEDS: Ibuprofen 400 MG TAB PO ×2 (08:47→19:38)
[2021-11-25 08:53] LABS: Source Nasal/Nares
[2021-11-25 09:24] LABS: Abs Immature Grans 0.02 10^3/uL (0.0-0.06); Absolute Basophil Count 0.07 10^3/uL (0.0-0.2); Absolute Lymphocyte Count 0.61 10^3/uL (1.2-3.4); Absolute Monocyte Count 0.64 10^3/uL (0.1-0.8); Absolute Neutrophil Count 5.75 10^3/uL (1.2-6.7); Eosinophils % 1.4; HCT 37.8 % (40.0-50.0); HGB 12.1 g/dL (13.5-17.5); Immature Grans % 0.3; Lymphocytes % 8.5; MCV 97 fL (80-95); MPV 9.3 fL (8.0-11.0); Monocytes % 8.9; Neutrophils % 79.9; Platelet Count 272 10^3/uL (130-400); RDW 14.5 % (11.8-14.1); RDW-SD 51.9 fL; WBC 7.19 10^3/uL (4.4-10.8)
[2021-11-25 09:33] LABS: ALT 41 U/L (16-63); AST 57 U/L (15-37); Albumin 2.8 g/dL (3.4-5.0); Alkaline Phosphatase 321 U/L (46-116); Anion Gap 4.2 mmol/L (3-11); BUN 42 mg/dL (7-18); CO2 33.8 mmol/L (21.0-32.0); CREATININE 1.3 mg/dL (0.70-1.30); Calcium 8.9 mg/dL (8.5-10.1); Chloride 99 mmol/L (98-107); Estimated GFR 55.53 (mL/min/1.73m2); Glucose 78 mg/dL (74-106); Magnesium 1.9 mg/dL (1.8-2.4); Potassium 4.7 mmol/L (3.5-5.1); Sodium 137 mmol/L (136-145); Total Protein 7.3 g/dL (6.4-8.2); Troponin I < 50 ng/L (<or=60)
--- NOTE | 2021-11-25 10:23 | ED.PROG_ITS ---
Date of service: 11/25/21 Time of Service: 10:00 Medical Decision Making 1024 -- Patient was signed out by Dr. Sherman with plan to follow-up on PT evaluation. Please see Dr. Lowry and Lane's note regarding prior ED course. Patient was seen by physical therapist, Tommy Waggoner, who notes patient unsafe to go home. He cannot ambulate safely and is also having difficulty feeding himself. Nursing notes they had to assist him with eating today. I spoke with care management who notes the patient will need to be hospitalized. We currently do not have inpatient bed capacity. Patient is a , I will [facility] I called and spoke with the hospitalist and discussed ED presentation and course, they will admit the patient. Lab Data Lab results reviewed: Yes I reviewed the patient's lab results. Sign Out Sign Out Data: Sign Out Comment: Keep in ER till the morning when the patient can be assessed b y PT/OT, with repeat head CT scan scheduled for 6 AM. Patient here for chronic upper and lower extremity weakness as well as subdural on CT scan which appears chronic. Last updated by Jaziel Lowry DO at 11/24/21 23:08 Sign Out Comment: repeat CT unchanged pending PT/CM eval Last updated by Diego Sherman MD at 11/25/21 08:20 Discharge Plan Disposition Patient Disposition: STILL A PATIENT Condition: Stable Discharge Details Clinical Impression: Bilateral arm weakness, Bilateral leg weakness, Chronic subdural hematoma Admit Date/Time: 11/25/21 12:56 Admit Provider: Gregorio Casillas Attending Provider: Gregorio Casillas Primary Care Provider: Ac Romeo ED Provider: Sammy Mahoney Discharge Data Discharge Date/Time-TO BE ENTERED AT DEPARTURE: 11/25/21 14:58
--- NOTE | 2021-11-25 12:10 | PT.INIE ---
PT Notes Inpatient Physical Therapy Evaluation Date: 11/25/2021 Referring Doctor: Jaziel Lowry MD PT Orders: PT CONSULT: Evaluate Precautions: Fall risk Patient Profile/Admitting Diagnosis: 80-year-old male who was noted progressive weakness throughout over the past 4 months. He is fallen 3 times, most recently requiring a visit to the ER. He notes that his becoming more more difficult to ambulate as well as bed mobility activities. PMHX: PFSH All Active Problems?(Updated 11/24/21 @ 22:38 by Jaziel Lowry DO) Decreased patient service specialist strength (Acute) Degenerative arthritis of cervical spine (Acute) Bilateral arm weakness (Acute) Bilateral arm weakness (Acute) Bilateral leg weakness (Acute) Bilateral hearing loss (Acute) YAHIR (obstructive sleep apnea) (Chronic) Night terrors (Acute) 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) CHF (congestive heart failure) (Chronic) Dyspnea (Acute) CHF (congestive heart failure) (Chronic) Acute exacerbation of CHF (congestive heart failure) (Acute) Pleural effusion (Acute) Anasarca (Acute) Dizziness (Acute) Dizziness (Acute) Congestive heart failure (Chronic) Contusion of hand, left (Acute) Contusion of hip, left (Acute) Mild dehydration (Acute) Fracture of triquetral bone of left wrist (Acute) Carotid stenosis, right (Acute) Acute exacerbation of CHF (congestive heart failure) (Acute) Dysphasia (Acute) Internal carotid artery occlusion (Acute) LEFTAcute kidney injury superimposed on chronic kidney disease (Acute) Dysarthria (Acute) Abdominal pain (Acute) Shortness of breath (Acute) Dizziness (Acute) Pleural effusion on right (Chronic) Palpitations (Acute) Calcific tendinitis of right shoulder (Acute) Cervical spinal stenosis (Acute) DNI (do not intubate) (Acute) DNR (do not resuscitate) (Acute) POLST (Physician Orders for Life-Sustaining Treatment) (Acute) Hypoxia (Chronic) Right shoulder pain (Acute) At risk for aspiration (Acute) Weakness generalized (Acute) Acute hypernatremia (Acute) Mental status, decreased (Acute) Discharge planning issues (Acute) DVT prophylaxis (Acute) Bladder neck contracture (Acute) Prostate cancer (Chronic) Chronic kidney disease (Chronic) STAGE 3Hypercholesterolemia (Chronic) Hypertension (Chronic) CAD (coronary artery disease) (Chronic) Ischemic cardiomyopathy (Chronic) Heart failure, chronic, with acute decompensation (Acute 12/31/12) Bladder outlet obstruction (Chronic) Medical History? Ascites CHF (congestive heart failure) Combined systolic/diastolic, EF 50% by echo in 03/19Chronic shortness of breath Cirrhosis History of carcinoma in situ of prostate DESAI (nonalcoholic steatohepatitis) Palliative care patient Pleural effusion, right Surgical History? History of heart artery stent S/P prostatectomy Status post THR (total hip replacement) Social History/Home Situation: Lives with his son in the first floor apartment with 3 steps and a railing entering the building. His son works 12 hours/day, so the patient spends most of the time sitting watching TV. He notes that he does walk to the kitchen with a walker for a light snack but this is increasingly becoming more difficult. Current Functional Limitations: Patient notes that he requires considerable time just to assume the supine to sitting positions and vice versa, but he does get up during the night to go to the bathroom. He takes sponge baths, does not drive and leaves the home rarely. Equipment Owned/DME: Walker Subjective: Patient complains of progressive weakness to the point where is difficult for him to even perform normal bed mobility activities and walking. He complains of interval discomfort throughout the cervical spine, bilateral suprahumerally and proximal humeral, posterior lateral aspect of the left hip discomfort along with paresthesias throughout his hands and feet. This will interfere with his sleeping pattern but also occurs frequently throughout the day. Objective: General Observation: I enter the examination room with the patient resting on a stretcher without significant discomfort. Mental Status: Alert and oriented Pain: Complains of intermittent discomfort throughout the cervical spine, posterior lateral aspect of the left hip and shoulders and proximal humeri bilaterally. He describes this as #7/10 on a VAS Vital Signs: Not performed ROM: Right Upper Extremity: His active right shoulder motion is limited to approximately 90 degrees and active assistively 110 degrees with rotation 45 degrees. His active left shoulder motion is limited to around 90 degrees, active assistively 100 degrees and rotation 45 degrees with endrange pain throughout the suprahumerally area bilaterally left greater than right. Bilateral elbow, forearm wrist and digit movements have good functional range of motion and nonpainful Right Lower Extremity: Active assistive right hip, knee, talocrural and subtalar movements functional range of motion nonirritable. He is hypomobile with talocrural dorsiflexion at 0 degrees. Left Lower Extremity: His active assistive left hip motion is endrange pain throughout the posterior aspect of the hip with flexion approximately 60 degrees. Rotation is good functional range with minimal discomfort. His left knee, subtalar and midtarsal movements are nonirritable, again he has hypomobility with ankle dorsiflexion and 0 degrees His active cervical spine motion is nonirritable but limited to approximately 45 degrees rotation and 10 to 15 degrees of sidebending. Extension is approximately 15 to 20 degrees. He had reproduction of his upper extremity discomfort with ipsilateral rotation, and posterior cervical spine discomfort with extension. Strength: His upper extremity strength is generally rated 2/5 other than his patient service specialist at 3/5. He is unable to touch the tip of his pinky with his thumb. He has mild intrinsic wasting His lower extremity strength is generally rated 3/5 with ankle musculature at 4/5 Neuro: Reflexes are hypomobile reflexive, has proprioceptive loss of his great toes with diminished sensation light touch throughout the extremities. Proprioception is intact in the upper extremity but he has stereognosis of his hands. Fingertips to nose is clumsy but without ataxia. Babinski is unequivocal Bed Mobility/Transfers: Patient required significant assistance with assuming the supine to sitting positions and vice versa. He also required assistance with repositioning himself once he is back on stretcher. He is able to stand from the sitting position with minimal assist. Gait: Patient took a couple steps with a wheeled walker requiring considerable contact guarding. He had fear of falling. Balance: Static Sitting: Fair requiring standby supervision. Patient had tendency to fall backwards Dynamic Sitting: Poor and easily disrupted Static Standing: Stable while using a walker. Contact guarding with his hands off the walker Dynamic Standing: Poor and is unable to perform unilateral heel lift Special test: An MRI earlier today which showed spinal cord compression at the C3-4 level along with degenerative changes. Refer to the radiologist report. No significant change in symptoms with cervical traction and a negative Spurling's test Informed Consent/Education: Patient instructed in purpose of PT consult and plan of care. Assessment: Patient is a 80year old male referred to physical therapy services with the diagnosis of progressive extremity weakness. Patient presents with clinical signs and symptoms consistent with this diagnosis which is probably related to his cervical stenosis with cord involvement, as demonstrated by the following impairment level findings: Significant weakness throughout with paresthesias throughout the hands and feet. Impairments are contributing to the following functional limitations: Requiring assistance with all bed mobility activities, poor sitting and standing balance, and a high fall risk with deteriorating gait mechanics. Patient is assessed as a High 88937 complexity based on the following: History: See comorbidities and social history Examination: See above for functional limitations and impairments Presentation: Unstable Decision Making: High complexity based on his clinical findings and his deteriorating functional status Goals: Goals X1 week 1. Supine-Sit independent 2. Sit-Supine independent 3. Sit-Stand independent 4. Stand-Sit independent 5. Bed-Chair with supervision 6. Chair-Bed with supervision 7. Gait ambulation with a wheeled walker with minimal contact guarding and a stable gait 8. Stairs able to a send and descend 3 steps with a railing 9. Increase strength throughout Plan of Care/Treatment Plan: 1-2x/day, 7 days/week x 1 week. Plan of care has been reviewed with the PET STYLIST providing the service under Physical Therapy direction. Initiate Physical Therapy intervention for strengthening, bed mobility, transfers, gait, stairs, balance training, use of assistive device. DISCHARGE RECOMMENDATIONS: x SNF for continued rehabilitation TREATMENT CODE/TIME: 86177/37060 Disclaimer: This note was created using [employer] voice recognition software. It was reviewed for major content. However, there may be multiple small discrepancies and errors due to the voice recognition aspects of the software.
[2021-11-25 12:37] LABS: COVID-19 PCR Negative (Negative)
--- NOTE | 2021-11-25 13:04 | W.PM.HP.N ---
Date of service: 11/25/21 Time of Service: 13:05 Assessment and Plan Assessment and plan (1) Cervical stenosis of spine: Status: Acute Assessment and plan: admitted to med/surg for acute decompensation at home, unable to care for self. MRI shows moderate to severe compression of the spinal cord at C3-C4 and severe foraminal stenosis. Moderate central canal stenosis and moderate foraminal stenosis at C4-C5. non surgical candidate palliative care consultation PT/OT anticipate placement (2) DVT prophylaxis: Status: Acute Assessment and plan: enoxaparin (3) Discharge planning issues: Status: Acute Assessment and plan: case management will be following for discharge planning discussed with Dr Casillas. History of Present Illness History of Present Illness Chief Complaint: weakness Review of Systems All systems reviewed & are unremarkable except as noted in HPI and below Constitutional Constitutional: Reports weakness Musculoskeletal Musculoskeletal: Reports abnormal gait and Reports muscle weakness Neurologic Neurologic: Reports abnormal gait, Reports localized weakness and Reports weakness PFSH All Active Problems (Updated 11/25/21 @ 18:02 by Jayshree Amaya NP) Cervical stenosis of spine (Acute) Moderate to severe compression of the spinal cord at C3-C4 and severe foraminal stenosis. Decreased document design specialist strength (Acute) Degenerative arthritis of cervical spine (Acute) Bilateral arm weakness (Acute) Bilateral arm weakness (Acute) Bilateral leg weakness (Acute) Chronic subdural hematoma (Acute) Bilateral hearing loss (Acute) YAHIR (obstructive sleep apnea) (Chronic) Night terrors (Acute) 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) CHF (congestive heart failure) (Chronic) Dyspnea (Acute) CHF (congestive heart failure) (Chronic) Acute exacerbation of CHF (congestive heart failure) (Acute) Pleural effusion (Acute) Anasarca (Acute) Dizziness (Acute) Dizziness (Acute) Congestive heart failure (Chronic) Contusion of hand, left (Acute) Contusion of hip, left (Acute) Mild dehydration (Acute) Fracture of triquetral bone of left wrist (Acute) Carotid stenosis, right (Acute) Acute exacerbation of CHF (congestive heart failure) (Acute) Dysphasia (Acute) Internal carotid artery occlusion (Acute) LEFT Acute kidney injury superimposed on chronic kidney disease (Acute) Dysarthria (Acute) Abdominal pain (Acute) Shortness of breath (Acute) Dizziness (Acute) Pleural effusion on right (Chronic) Palpitations (Acute) Calcific tendinitis of right shoulder (Acute) Cervical spinal stenosis (Acute) DNI (do not intubate) (Acute) DNR (do not resuscitate) (Acute) POLST (Physician Orders for Life-Sustaining Treatment) (Acute) Hypoxia (Chronic) Right shoulder pain (Acute) At risk for aspiration (Acute) Weakness generalized (Acute) Acute hypernatremia (Acute) Mental status, decreased (Acute) Discharge planning issues (Acute) DVT prophylaxis (Acute) Bladder neck contracture (Acute) Prostate cancer (Chronic) Chronic kidney disease (Chronic) STAGE 3 Hypercholesterolemia (Chronic) Hypertension (Chronic) CAD (coronary artery disease) (Chronic) Ischemic cardiomyopathy (Chronic) Heart failure, chronic, with acute decompensation (Acute 12/31/12) Bladder outlet obstruction (Chronic) Medical History Ascites CHF (congestive heart failure) Combined systolic/diastolic, EF 50% by echo in 03/19 Chronic shortness of breath Cirrhosis History of carcinoma in situ of prostate DESAI (nonalcoholic steatohepatitis) Palliative care patient Pleural effusion, right Surgical History History of heart artery stent S/P prostatectomy Status post THR (total hip replacement) Family History Son No problems noted. Social History Smoking/Tobacco Use Status: Never Smoking risk assessment performed?: Yes Alcohol Intake: former Drug use: Never Substance use type: does not use Caregiver/Support person: Yes Communication Needs: Hard of Hearing and Corrective Lenses Education Level: high school Do you need help understanding health information?: Always Current gender identity: male How often do you talk on the phone with friends or family?: three or more times per week How often do you get together with friends or relatives?: three or more times per week Panel score (0-1 are the most socially isolated patients): 1 What type of physical activity do you participate in: walking Duration: 15-30 minutes/day Special deanna needs: No Seatbelt use: always Do you feel safe at home: Yes Do you feel safe in your relationship?: Yes Additional Social history: Son Berto is his main person who helps care for him. He is a , but was posted in [place] during the [employer] era. He has insurance with both medicare and [employer]. Meds Allergies and Home Medications Allergies Allergy/AdvReac Type Severity Reaction Status Date / Time amlodipine AdvReac Intermediate Swelling/Ed Unverified 11/25/21 04:58 lottie enalapril maleate AdvReac Intermediate cough Unverified 11/25/21 04:58 [From Vasotec] enalaprilat dihydrate AdvReac Intermediate cough Unverified 11/25/21 04:58 [From Vasotec] spironolactone AdvReac Unknown Other (See Unverified 11/25/21 04:58 Comment) Home Medications Medication Instructions Recorded Confirmed Type nitroglycerin 0.4 mg sublingual 0.4 mg sublingual PRN PRN 12/31/12 11/25/21 History tablet aspirin 81 mg tablet,delayed 81 mg PO DAILY 10/28/15 11/25/21 History release (Aspir-) allopurinol 100 mg tablet 100 mg PO DAILY #0 tabs 04/16/20 11/25/21 Rx atorvastatin 40 mg tablet 80 mg PO HS 05/05/20 11/25/21 History valsartan 40 mg tablet (Diovan) 20 mg PO BID #60 tabs 10/17/20 11/25/21 Rx eplerenone 25 mg tablet 12.5 mg PO QAM 03/10/21 11/25/21 History furosemide 40 mg tablet 40 mg PO BID@0830,1200 03/10/21 11/25/21 History acetaminophen 650 mg 650 mg PO Q6H PRN PRN 10/03/21 11/25/21 History tablet,extended release (Tylenol Arthritis Pain) metoprolol succinate 25 mg 100 mg PO DAILY 10/03/21 11/25/21 History tablet,extended release 24 hr Exam Const General: cooperative (elderly male of stated age), no acute distress, well developed and well groomed Nutritional Appearance: average body habitus Orientation: alert, awake and oriented x3 HENMT Head: normal to inspection, normocephalic and atraumatic Mouth: oral mucosae normal Resp Effort & Inspection: normal respiratory effort Auscultation: rales bilaterally at the base Cardio Rate: regular rate Rhythm: regular rhythm GI Inspection: normal to inspection Palpation: soft Auscultation: normal bowel sounds Skin General skin exam: no rashes or lesions noted Neuro General: patient alert, patient awake and patient oriented x3 Extrem General: normal to inspection and no pedal edema Results Labs Result diagrams: 11/25/21 09:11 11/25/21 09:11 Labs: Laboratory Results - last 24 hr 11/25/21 11/25/21 11/25/21 08:40 09:11 09:11 WBC 7.19 RBC 3.90 L Hgb 12.1 L Hct 37.8 L MCV 97 H MCH 31.0 MCHC 32.0 RDW 14.5 H Plt Count 272 MPV 9.3 Immature Gran % 0.3 Neutrophils % 79.9 Lymphocytes % 8.5 Monocytes % 8.9 Eosinophils % 1.4 Basophils % 1.0 Nucleated RBC % 0.0 Absolute Neutrophils 5.75 Absolute Lymphocytes 0.61 L Absolute Monocytes 0.64 Absolute Eosinophils 0.10 Absolute Basophils 0.07 Sodium 137 Potassium 4.7 Chloride 99 Carbon Dioxide 33.8 H Anion Gap 4.2 BUN 42 H Creatinine 1.3 Est GFR (CKD-EPI 2020) 55.53 Glucose 78 Calcium 8.9 Magnesium 1.9 Total Bilirubin 1.0 AST 57 H ALT 41 Alkaline Phosphatase 321 H Troponin I < 50 Total Protein 7.3 Albumin 2.8 L COVID-19 Source Nasal/Nares SARS-CoV-2 (PCR) Negative Last Vital Signs Temp 36.7 C 11/25/21 06:06 Pulse 63 11/25/21 11:48 Resp 18 11/25/21 11:47 BP 149/71 H 11/25/21 11:48 Pulse Ox 91 L 11/25/21 11:48
[2021-11-25 15:09] LABS: Bilirubin Negative (Negative); Blood Moderate (Negative); Clarity Cloudy (Clear); Glucose Negative (Negative); Ketones Negative (Negative); Leukocyte Esterase Trace (Negative); Nitrite Negative (Negative); Specific Gravity 1.015 (1.005-1.025); Urobilinogen 0.2 EU/dL (Up TO 0.2)
[2021-11-25 15:26] LABS: Bacteria Rare HPF (Negative); C & S Indicated? Yes; Crystals Negative HPF (Negative); Epithelial Cells Negative HPF (Negative); Mucus Negative (Negative); RBC 20-50 HPF (0-2)
[2021-11-25] MEDS: Atorvastatin 40 MG TAB 80 MG PO (19:38)
[2021-11-25] MEDS: Acetaminophen 325 MG TAB 650 MG PO (19:38)
[2021-11-26 06:28] VITALS: BP 153/68; PULSE 58; RESP 16; TEMP 36.1
[2021-11-26 07:52] VITALS: BP 157/79; PULSE 60; RESP 17; TEMP 36.1; O2SAT 91
--- NOTE | 2021-11-26 08:19 | OTIE_ITS ---
Occupational Therapy Notes Inpatient Occupational Therapy Evaluation Date: 11/26/21 Referring Doctor:Jayshree Amaya NP OT Orders: Non urgent Precautions: Fall, standard, DNR/DNI PATIENT PROFILE/ADMITTING DIAGNOSIS: Pt is a 80-year-old male who was noted progressive weakness throughout over the past 4 months.? He is fallen 3 times, most recently requiring a visit to the ER.? He notes that his becoming more more difficult to ambulate and perform his ADL/IADL routines. He was admitted through the ED. 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) CHF (congestive heart failure) (Chronic) Dyspnea (Acute) CHF (congestive heart failure) (Chronic) Acute exacerbation of CHF (congestive heart failure) (Acute) Pleural effusion (Acute) Anasarca (Acute) Dizziness (Acute) Dizziness (Acute) Congestive heart failure (Chronic) Contusion of hand, left (Acute) Contusion of hip, left (Acute) Mild dehydration (Acute) Fracture of triquetral bone of left wrist (Acute) Carotid stenosis, right (Acute) Acute exacerbation of CHF (congestive heart failure) (Acute) Dysphasia (Acute) Internal carotid artery occlusion (Acute) LEFTAcute kidney injury superimposed on chronic kidney disease (Acute) Dysarthria (Acute) Abdominal pain (Acute) Shortness of breath (Acute) Dizziness (Acute) Pleural effusion on right (Chronic) Palpitations (Acute) Calcific tendinitis of right shoulder (Acute) Cervical spinal stenosis (Acute) DNI (do not intubate) (Acute) DNR (do not resuscitate) (Acute) POLST (Physician Orders for Life-Sustaining Treatment) (Acute) Hypoxia (Chronic) Right shoulder pain (Acute) At risk for aspiration (Acute) Weakness generalized (Acute) Acute hypernatremia (Acute) Mental status, decreased (Acute) Discharge planning issues (Acute) DVT prophylaxis (Acute) Bladder neck contracture (Acute) Prostate cancer (Chronic) Chronic kidney disease (Chronic) STAGE 3Hypercholesterolemia (Chronic) Hypertension (Chronic) CAD (coronary artery disease) (Chronic) Ischemic cardiomyopathy (Chronic) Heart failure, chronic, with acute decompensation (Acute 12/31/12) Bladder outlet obstruction (Chronic) Medical History? Ascites CHF (congestive heart failure) Combined systolic/diastolic, EF 50% by echo in 03/19Chronic shortness of breath Cirrhosis History of carcinoma in situ of prostate DESAI (nonalcoholic steatohepatitis) Palliative care patient Pleural effusion, right Surgical History? History of heart artery stent S/P prostatectomy Status post THR (total hip replacement) Social History/Home Situation: ?Lives with his son in the first floor apartment with 3 steps and a railing entering the building.? His son works 12 hours/day, so the patient spends most of the time sitting watching TV at home throughout the day.? He notes that he does walk to the kitchen with a walker for a light snack but this is increasingly becoming more difficult. He performs his bathing routines via sponge baths and notes that he needs (A) with his ADL performance. He states that he has been performing his ADLs with (A) recently as he cannot move his arms with ideal ROM enough to perform his eating, dressing or bathing routines. He does not drive. SUBJECTIVE: Pt states that he is doing well but is tired this morning. He notes that he just can't move his arms and legs. He is getting increased leg pain which in the supine position. OBJECTIVE: General Observation: Pleasant, minimal AROM of (B) UE, bruising noted on pts back, decreased functional activity tolerance with (L) sided trunk lean in sitting position. Mental Status: A&Ox3 Pain: c/o pain and cramping in (B) LE ROM: RUE able to bend elbow to touch abdomen, shoulder flexion 30* L UE able to bend elbow to touch abdomen, shoulder flexion 30* STRENGTH: RUE weak lead injection mold technician strength 2/5 LUE weark lead injection mold technician strength 2/5 FUNCTIONAL MOBILITY/ADLS: Transfers max (A) x2 Supine-sit mod (A) Sit-Stand mod (A) x2 Stand-sit mod (A) x2 Bed-Chair mod (A) x2 BATHING max (A) as pt has minimal AROM of his (B) UE which is affecting his functional (I) Dressing UE max (A) Dressing LE max (A) TOILETING NT EATING max (A) pt is unable to bring his hands to mouth and is not able to (I) perform his feeding routine at this time. BALANCE: Static sitting Fair Dynamic Sitting Poor Static Standing Poor Dynamic Standing Poor SPECIAL TESTS: Daily Activity Limitations Standardized Measure [facility] AM -PAC ?6 clicks? Daily Activity Inpatient Short Form: Raw score: 8 Standardized score: 22.86 CMS score: 85.69% INFORMED CONSENT/EDUCATION: Pt instructed in purpose of OT Consult and plan of care. 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 Patient presents with clinical signs and symptoms consistent with dx, as demonstrated by the following impairment level findings/functional limitations: Impairments in ADL/IADL and leisure activities, decreased functional use of his (B) UE, pain in neck, decreased gross and fine motor control, decreased functional activity tolerance, requires max (A) for most ADLs at this time with minimal ROM of (B) UE and decreased functional mobility required for ADL performance. AMPAC score 8 Patient is assessed as a high 46215 complexity based on the following: History: see above Examination: see functional limitations as noted above Presentation: evolving Decision Making: AMPAC score 8 GOALS Goals x1 week 1. Transfers min (A) x2 2. Dressing seated mod (A) 3. Bathing seated mod (A) 4. Toileting on commode mod (A) 5. Eating seated mod (A) PLAN OF CARE/TREATMENT PLAN: 1x/day, 5 days/ week x 1week Initiate Occupational Therapy Services for bathing, dressing, grooming, toileting, eating, transfer training. DISCHARGE RECOMMENDATIONS SNF due to pts decline in functional (I) and inability to perform his ADLs at his baseline level of function. TREATMENT TIME/MINUTES/CODES 33217, 89720, 35 minutes Jody Maldonado OTR/L [facility]
[2021-11-26] MEDS: Valsartan 40 MG TAB 20 MG PO ×2 (08:50→19:55)
[2021-11-26] MEDS: Aspirin E.C. 81 MG TABEC PO (08:50)
[2021-11-26] MEDS: Allopurinol 100 MG TAB PO (08:50)
[2021-11-26] MEDS: Acetaminophen 325 MG TAB 650 MG PO ×4 (08:50→19:55)
[2021-11-26] MEDS: Metoprolol CR 100 MG TABCR PO (08:50)
[2021-11-26] MEDS: Furosemide 40 MG TAB PO ×2 (08:50→11:52)
[2021-11-26 09:04] VITALS: PULSE 69; O2SAT 90
--- NOTE | 2021-11-26 09:26 | PDOC.CMIN ---
- If Service Date Differs Date of service: 11/26/21 Time of Service: 09:26 Care Management Initial Assess REASON FOR HOSPITALIZATION:: spinal cord compression PAST MEDICAL HISTORY/PAST SURGICAL HISTORY:: All Active Problems (Updated 11/25/21 @ 18:02 by Jayshree Amaya NP). Cervical stenosis of spine (Acute). Moderate to severe compression of the spinal cord at C3-C4 and severe foraminal. stenosis. 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 Degenerative arthritis of cervical spine (Acute). Bilateral arm weakness (Acute). Bilateral arm weakness (Acute). Bilateral leg weakness (Acute). Chronic subdural hematoma (Acute). Bilateral hearing loss (Acute). YAHIR (obstructive sleep apnea) (Chronic). Night terrors (Acute). 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 CHF (congestive heart failure) (Chronic). Dyspnea (Acute). CHF (congestive heart failure) (Chronic). Acute exacerbation of CHF (congestive heart failure) (Acute). Pleural effusion (Acute). Anasarca (Acute). Dizziness (Acute). Dizziness (Acute). Congestive heart failure (Chronic). Contusion of hand, left (Acute). Contusion of hip, left (Acute). Mild dehydration (Acute). Fracture of triquetral bone of left wrist (Acute). Carotid stenosis, right (Acute). Acute exacerbation of CHF (congestive heart failure) (Acute). Dysphasia (Acute). Internal carotid artery occlusion (Acute). LEFT. Acute kidney injury superimposed on chronic kidney disease (Acute). Dysarthria (Acute). Abdominal pain (Acute). Shortness of breath (Acute). Dizziness (Acute). Pleural effusion on right (Chronic). Palpitations (Acute). Calcific tendinitis of right shoulder (Acute). Cervical spinal stenosis (Acute). DNI (do not intubate) (Acute). DNR (do not resuscitate) (Acute). POLST (Physician Orders for Life-Sustaining Treatment) (Acute). Hypoxia (Chronic). Right shoulder pain (Acute). At risk for aspiration (Acute). Weakness generalized (Acute). Acute hypernatremia (Acute). Mental status, decreased (Acute). Discharge planning issues (Acute). DVT prophylaxis (Acute). Bladder neck contracture (Acute). Prostate cancer (Chronic). Chronic kidney disease (Chronic). STAGE 3. Hypercholesterolemia (Chronic). Hypertension (Chronic). CAD (coronary artery disease) (Chronic). Ischemic cardiomyopathy (Chronic). Heart failure, chronic, with acute decompensation (Acute 12/31/12). Bladder outlet obstruction (Chronic). Medical History . Ascites. CHF (congestive heart failure). Combined systolic/diastolic, EF 50% by echo in 03/19. Chronic shortness of breath. Cirrhosis. History of carcinoma in situ of prostate. DESAI (nonalcoholic steatohepatitis). Palliative care patient. Pleural effusion, right. Surgical History . History of heart artery stent. S/P prostatectomy. Status post THR (total hip replacement) PREVIOUS FUNCTIONAL STATUS/SOCIAL/FAMILY SUPPORTS:: Joaquín lives alone in a stud apartment in [place], [place]. He has been marrried twice and is still in contact with one of his ex-wives who lives closeby with one of his sons.One of his other sons has been staying with him and will be there until the end of the year. Joaquín has 4 other children, several of which live out of state. He states his family is supportive. 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 He is independent at baseline and continues to drive. CURRENT FUNCTIONAL STATUS:: Joaquín was lying in bed when CM met with him. He was pleasant and engaged easily in conversation but stated that he is in a lot of pain. Joaquín shared that he is getting worse as time goes on. He is no longer able to feed himself or ambulate. He verbalized that he knows he can no longer take care of himself and needs to go somewhere. [facility] offered to send referrals to area SNFs and Joaquín accepted the offer. He did voice concern about cost and [facility] was able to assure him that if he is accepted at a SNF, Medicare is likely to pay for it. ADVANCE DIRECTIVES:: [facility] Has patient been provided with info about the portal/API?: Yes Did the patient sign up for the portal?: No CODE STATUS:: DNR/DNI INSURANCE COVERAGE / FINANCIAL ISSUES:: Medicare. for Life CURRENT HOME/COMMUNITY SERVICES/EQUIPMENT:: uses a walker. no other services at this time PRIMARY CARE PHYSICIAN:: Ac Romeo POTENTIAL DISCHARGE NEEDS:: may need placement PATIENT/FAMILY EDUCATION NEEDS:: Review of discharge instructions, limitations, activity, follow up plan, Ask Me Three TRANSPORTATION:: to be determined by disposition PLAN:: Joaquín's discharge plan is not clear at this time. He has significant weakness in both his upper and lower extremities making mobilization and performing ADLs challenging. He will likely need placement in a SNF for short term rehab or longitudinal float operator care. CM will follow and continue to assess for discharge needs.
[2021-11-26] MEDS: Ibuprofen 400 MG TAB PO (09:39)
--- NOTE | 2021-11-26 12:29 | PTTR_ITS ---
Date of service: 11/26/21 Time of Service: 09:21 PT Notes Visit Reasons: Spinal Cord Compression Inpatient Physical Therapy Treatment Note [facility] Date: 11/26/2021 PRECAUTIONS: Fall, activity as tolerated, limited mobility SUBJECTIVE: Joaquín is pleasant and agreeable to attempting to participate in PT. He reports that his mobility has been progressively getting worse. He agrees that he is not able to manage at home alone anymore. OBJECTIVE: Recommending mechanical lift transfers only at this time, for safety of patient and staff. PAIN: Patient c/o severe pain in B UE and LE at rest and with activity. BED MOBILITY/TRANSFERS Rolling L/R: I with semi-roll Supine-sit: Mod A Sit-supine: Min A Sit-stand: Mod A x2 Stand-sit: Mod A x2 Bed-Chair: Unable GAIT Assistive Device: Patient unable to grasp FWW appropriately (unsafe) MILK TRUCK DRIVER x2 Weight bearing: As tolerated Assist: Mod A x2 Distance: Marching in place x6 steps L/R with FWW 4 side steps to R with MILK TRUCK DRIVER x2 Deviation: B knees giving out, pain in B shoulders, pain in B legs THEREX: Patient was instructed in standing marches x6 L/R, seated marches x5 L/R, forward reaching with B UE x3 with Mod A and pain, and lateral bending to L/R x1 and was unable to self-correct. ASSESSMENT: Patient tolerated session with c/o increased pain, globally. He demonstrates severe global weakness and limited range of motion and mobility. PLAN: Focus on global strengthening/core stabilization for improved sitting tolerance and mobility. TREATMENT CODE/TIME: Session 1: 24 minutes; [id number], [id number] (09:21) Session 2: Patient unable to participate due to severe pain in B shoulders and LEs.
--- NOTE | 2021-11-26 15:32 | PHA.REVIEW2 ---
Pharmacy Admission Review - Admission Clinical Review (Last Reviewed 11/24/21 @ 16:20 by Jaziel Lowry DO) Cervical stenosis of spine (Acute) Bilateral arm weakness (Acute) Bilateral leg weakness (Acute) Chronic subdural hematoma (Acute) Discharge planning issues (Acute) DVT prophylaxis (Acute) amlodipine Adverse Reaction (Intermediate, Unverified 11/25/21 04:58) Swelling/Edema enalapril maleate [From Vasotec] Adverse Reaction (Intermediate, Unverified 11/25/21 04:58) cough enalaprilat dihydrate [From Vasotec] Adverse Reaction (Intermediate, Unverified 11/25/21 04:58) cough spironolactone Adverse Reaction (Unknown, Unverified 11/25/21 04:58) Other (See Comment) Resuscitation Status DNR/DNI Height 5 ft 6 in Weight 68.039 kg - Renal Dosing Renal Dosing: BUN 42 mg/dL (7-18) H 11/25/21 09:11 Creatinine 1.3 mg/dL (0.70-1.30) 11/25/21 09:11 Medications needing adjustments: Reviewed (Crcl ~43.6 mL/min current meds okay) - Anticoagulation Anticoagulation: Hgb 12.1 g/dL (13.5-17.5) L 11/25/21 09:11 Hct 37.8 % (40.0-50.0) L 11/25/21 09:11 Plt Count 272 10^3/uL (130-400) 11/25/21 09:11 Creatinine 1.3 mg/dL (0.70-1.30) 11/25/21 09:11 DVT Prophylaxis: Reviewed Medications: Enoxaparin Therapeutic Anticoagulation: N/A - Opiate Usage Evaluate Pain Scale/Pains Meds: N/A - Relevant Labs Sodium 137 mmol/L (136-145) 11/25/21 09:11 Potassium 4.7 mmol/L (3.5-5.1) 11/25/21 09:11 Chloride 99 mmol/L (98-107) 11/25/21 09:11 Magnesium 1.9 mg/dL (1.8-2.4) 11/25/21 09:11 Electrolytes, C-Reactive P, ESR: Reviewed - DM Control DM Control: Glucose 78 mg/dL (74-106) 11/25/21 09:11 DM Control: N/A - Cardiac Review Cardiac Review: Troponin I < 50 ng/L (<or=60) 11/25/21 09:11 BP, HR, EF%: Reviewed (BP has been elevated most of admission so far, has multiple BP meds ordered.) - Qtc Review QTc: N/A - IV to PO Switch IV Medications: Reviewed - Home Meds Home Med List reviewed: Reviewed Relevent Home Meds Not ordered & why?: nitroglycerin (PRN) - Current meds Current Medication Order Review: Reviewed - Comments Comments/Follow Ups: Watch BP, SCr, labs and for med changes (possible renal dose adjustments).
[2021-11-26 15:56] VITALS: BP 148/80; PULSE 63; RESP 18; TEMP 37; O2SAT 91
[2021-11-26] MEDS: Ketorolac 10 MG TAB PO (16:32)
[2021-11-26] MEDS: predniSONE 20 MG TAB PO (16:32)
--- NOTE | 2021-11-26 19:19 | W.PM.PROGNOT ---
Date of Service Date of service: 11/26/21 Time of Service: 19:19 Assessment and Plan Assessment and plan (1) Cervical stenosis of spine: Status: Acute Assessment and plan: admitted to med/surg for acute decompensation at home, unable to care for self. MRI shows moderate to severe compression of the spinal cord at C3-C4 and severe foraminal stenosis. Moderate central canal stenosis and moderate foraminal stenosis at C4-C5. non surgical candidate Trying toradol for pain. palliative care consultation PT/OT anticipate placement (2) DVT prophylaxis: Status: Acute Assessment and plan: enoxaparin (3) Discharge planning issues: Status: Acute Assessment and plan: case management will be following for discharge planning discussed with Dr Casillas. Subjective Subjective Patient reports: no new complaints, still having pain, tolerating a regular diet and bowel movement; denies flatus, diarrhea, vomiting or shortness of breath Interval history since last seen: Reports he still having pain despite tylenol. Exam Const General: cooperative (elderly male of stated age), no acute distress, well developed and well groomed Nutritional Appearance: average body habitus Orientation: alert, awake and oriented x3 HENMT Head: normal to inspection, normocephalic and atraumatic Mouth: oral mucosae normal Resp Effort & Inspection: normal respiratory effort Auscultation: rales bilaterally at the base Cardio Rate: regular rate Rhythm: regular rhythm GI Inspection: normal to inspection Palpation: soft Auscultation: normal bowel sounds Skin General skin exam: no rashes or lesions noted Neuro General: patient alert, patient awake and patient oriented x3 Extrem General: normal to inspection and no pedal edema Objective Last Vital Signs Temp 37.0 C 11/26/21 15:56 Pulse 63 11/26/21 15:56 Resp 18 11/26/21 15:56 BP 148/80 H 11/26/21 15:56 Pulse Ox 91 L 11/26/21 15:56
[2021-11-26] MEDS: Atorvastatin 40 MG TAB 80 MG PO (19:55)
[2021-11-26 23:12] VITALS: BP 149/79; PULSE 68; RESP 17; TEMP 36.6; O2SAT 90
[2021-11-27] MEDS: Ketorolac 10 MG TAB PO ×4 (03:10→19:44)
[2021-11-27] MEDS: Aspirin E.C. 81 MG TABEC PO (07:32)
[2021-11-27] MEDS: Furosemide 40 MG TAB PO ×2 (07:32→12:32)
[2021-11-27] MEDS: Acetaminophen 325 MG TAB 650 MG PO ×4 (07:33→19:45)
[2021-11-27] MEDS: Metoprolol CR 100 MG TABCR PO (07:33)
[2021-11-27] MEDS: Allopurinol 100 MG TAB PO (07:33)
[2021-11-27] MEDS: Valsartan 40 MG TAB 20 MG PO ×2 (07:33→19:44)
[2021-11-27] MEDS: predniSONE 20 MG TAB PO (07:44)
[2021-11-27] MEDS: Enoxaparin 40 MG/0.4 ML SYR SC (07:44)
[2021-11-27] MEDS: Baclofen 10 MG TAB PO ×3 (08:00→19:45)
[2021-11-27 09:43] VITALS: PULSE 69; RESP 18; TEMP 35.7; O2SAT 90
--- NOTE | 2021-11-27 09:45 | PT.INTREAT ---
PT Notes Visit Reasons: Spinal Cord Compression Inpatient Physical Therapy Treatment Note [facility] Date: 11/27/21 SUBJECTIVE: Pt is reporting a lot of discomfort. Pt reports that every time he moves his arms or legs he experiencing spasms and discomfort. OBJECTIVE: GAIT THEREX: Attempted elbow flexion and ext x 5 and shoulder flexion x 5 B. Pt was not able to tolerate any more of this and asked to not continue due to his pain. ASSESSMENT: Pt was fully medicated and still experiencing a lot of discomfort. I was not able to get pt to complete much for exercises. PLAN: Cont as per PT POC as per anais. TREATMENT CODE/TIME: 9:30-9:38 (8) TA
[2021-11-27 12:19] VITALS: O2SAT 87
[2021-11-27 12:20] VITALS: O2SAT 93
[2021-11-27 15:26] VITALS: BP 153/83; PULSE 68; RESP 16; TEMP 35.8; O2SAT 96
--- NOTE | 2021-11-27 16:05 | PGE_ITS ---
Date of Service Date of service: 11/27/21 Time of Service: 16:05 Assessment and Plan Assessment and plan (1) Cervical stenosis of spine: Status: Acute Assessment and plan: admitted to med/surg for acute decompensation at home, unable to care for self. MRI shows moderate to severe compression of the spinal cord at C3-C4 and severe foraminal stenosis. Moderate central canal stenosis and moderate foraminal stenosis at C4-C5. non surgical candidate Trying toradol for pain. palliative care consultation PT/OT anticipate placement (2) Chronic subdural hematoma: Status: Resolved Assessment and plan: imaging stable, no subdural collection is identified on head CT 11/25/2021 (3) CHF (congestive heart failure): Status: Chronic Assessment and plan: stable. (4) Chronic kidney disease: Status: Chronic Assessment and plan: creatinine was stable and at baseline avoid nephrotoxic drugs and renal dose as needed Qualifiers: Chronic kidney disease stage: stage 3 (moderate) Chronic kidney disease stage 3 subtype: stage 3a (GFR 45-59) Qualified Code(s): N18.31 - Chronic kidney disease, stage 3a (5) DVT prophylaxis: Status: Acute Assessment and plan: enoxaparin (6) Discharge planning issues: Status: Acute Assessment and plan: case management will be following for discharge planning discussed with Dr Moreno Subjective Subjective Patient reports: no new complaints, feels better, still having pain, tolerating a regular diet (requiring feeding), voiding w/o difficulty, bowel movement and afebrile; denies shortness of breath Exam Const General: cooperative (elderly male of stated age), no acute distress, well developed and well groomed Nutritional Appearance: average body habitus Orientation: alert, awake and oriented x3 [facility] Head: normal to inspection, normocephalic and atraumatic Mouth: oral mucosae normal Resp Effort & Inspection: normal respiratory effort Auscultation: rales bilaterally at the base Cardio Rate: regular rate Rhythm: regular rhythm GI Inspection: normal to inspection Palpation: soft Auscultation: normal bowel sounds Skin General skin exam: no rashes or lesions noted Neuro General: patient alert, patient awake, patient oriented x3 and tone abnormal Motor: tone not normal throughout, strength not 5/5 throughout and strength abnormal (1/5 bilateral upper) Extrem General: no pedal edema Objective Last Vital Signs Temp 35.8 C L 11/27/21 15:26 Pulse 68 11/27/21 15:26 Resp 16 11/27/21 15:26 BP 153/83 H 11/27/21 15:26 Pulse Ox 96 11/27/21 15:26
[2021-11-27 19:37] VITALS: BP 146/75; PULSE 67; RESP 20; TEMP 35.9; O2SAT 94
[2021-11-27] MEDS: Atorvastatin 40 MG TAB 80 MG PO (19:45)
[2021-11-27] MEDS: MORPHine 2 MG/ML SYR IVP (20:26)
[2021-11-27 23:32] VITALS: BP 128/67; PULSE 65; RESP 14; TEMP 36; O2SAT 97
[2021-11-28 04:24] VITALS: BP 126/63; PULSE 55; RESP 16; TEMP 35.9; O2SAT 96
[2021-11-28 08:09] VITALS: BP 139/76; PULSE 59; RESP 18; TEMP 36.9; O2SAT 100
--- NOTE | 2021-11-28 10:17 | PT.INNT ---
PT Notes Visit Reasons: Spinal Cord Compression Nursing reports that he has declined over night and not doing well this am. Nursing suggests pt be on hold today and check in tomorrow morining.
[2021-11-28] MEDS: Enoxaparin 40 MG/0.4 ML SYR SC (10:41)
[2021-11-28] MEDS: Acetaminophen 325 MG TAB 650 MG PO ×2 (10:41→20:04)
[2021-11-28] MEDS: Aspirin E.C. 81 MG TABEC PO (10:41)
[2021-11-28] MEDS: Baclofen 10 MG TAB PO ×2 (10:41→20:05)
[2021-11-28] MEDS: Valsartan 40 MG TAB 20 MG PO ×2 (10:41→20:05)
[2021-11-28] MEDS: predniSONE 20 MG TAB PO (10:42)
[2021-11-28] MEDS: Metoprolol CR 100 MG TABCR PO (10:42)
[2021-11-28] MEDS: Allopurinol 100 MG TAB PO (10:42)
[2021-11-28] MEDS: Furosemide 40 MG TAB PO (10:42)
[2021-11-28] MEDS: Lidocaine 5% Patch 2 PATCH TP (13:48)
[2021-11-28 15:22] VITALS: BP 135/73; PULSE 57; RESP 16; TEMP 36.1; O2SAT 98
[2021-11-28 16:37] LABS: Platelet Count 336 10^3/uL (130-400)
--- NOTE | 2021-11-28 17:55 | PGE_ITS ---
Date of Service Date of service: 11/28/21 Time of Service: 17:55 Assessment and Plan Assessment and plan (1) Cervical stenosis of spine: Status: Acute Assessment and plan: admitted to med/surg for acute decompensation at home, unable to care for self. MRI shows moderate to severe compression of the spinal cord at C3-C4 and severe foraminal stenosis. Moderate central canal stenosis and moderate foraminal stenosis at C4-C5. non surgical candidate scheduled apap, prn toradol, will add lidocaine patch and tramadol prn. was very sensitive to low dose morphine. palliative care consultation PT/OT anticipate placement (2) Chronic subdural hematoma: Status: Resolved Assessment and plan: imaging stable, no subdural collection is identified on head CT 11/25/2021 (3) CHF (congestive heart failure): Status: Chronic Assessment and plan: stable. (4) Chronic kidney disease: Status: Chronic Assessment and plan: creatinine was stable and at baseline avoid nephrotoxic drugs and renal dose as needed Qualifiers: Chronic kidney disease stage: stage 3 (moderate) Chronic kidney disease stage 3 subtype: stage 3a (GFR 45-59) Qualified Code(s): N18.31 - Chronic kidney disease, stage 3a (5) DVT prophylaxis: Status: Acute Assessment and plan: enoxaparin (6) Discharge planning issues: Status: Acute Assessment and plan: case management will be following for discharge planning discussed with Dr Moreno Subjective Subjective Patient reports: no new complaints Interval history since last seen: received morphine 1 mg IVP overnight which he was very sensitive to and easily oversedated. Exam Const General: cooperative (elderly male of stated age), no acute distress, well developed and well groomed Nutritional Appearance: average body habitus [facility] Head: normal to inspection, normocephalic and atraumatic Mouth: oral mucosae normal Resp Effort & Inspection: normal respiratory effort Auscultation: rales bilaterally at the base Cardio Rate: regular rate Rhythm: regular rhythm GI Inspection: normal to inspection Palpation: soft Auscultation: normal bowel sounds Skin General skin exam: no rashes or lesions noted Neuro General: patient oriented x3, tone abnormal and other (sedate but arousable. ) Motor: tone not normal throughout, strength not 5/5 throughout and strength abnormal (1/5 bilateral upper) Extrem General: no pedal edema Objective Last Vital Signs Temp 36.1 C L 11/28/21 15:22 Pulse 57 L 11/28/21 15:22 Resp 16 11/28/21 15:22 BP 135/73 11/28/21 15:22 Pulse Ox 98 11/28/21 15:22 Laboratory Results - last 24 hr 11/28/21 15:30 Plt Count 336
[2021-11-28 19:09] VITALS: BP 157/67; PULSE 60; RESP 18; TEMP 35.8; O2SAT 97
[2021-11-28] MEDS: Atorvastatin 40 MG TAB 80 MG PO (20:04)
[2021-11-28 23:47] VITALS: BP 114/60; PULSE 55; RESP 14; TEMP 36.7; O2SAT 93
[2021-11-29] MEDS: Ketorolac 10 MG TAB PO (03:15)
[2021-11-29] MEDS: traMADol 50 MG TAB PO (04:04)
[2021-11-29 07:29] VITALS: BP 133/72; PULSE 71; RESP 16; TEMP 36; O2SAT 97
--- NOTE | 2021-11-29 09:01 | OT.INNT ---
Occupational Therapy Notes 11/29/21 Pt had a decline in his functional status at this time. Based on this pt is on hold per nursing. OT will attempt to resume services tomorrow. Jody Maldonado, HILARYR/L
--- NOTE | 2021-11-29 09:02 | PDOC.CMPRO ---
- If Service Date Differs Date of service: 11/29/21 Time of Service: 09:02 Care Management Progress Note S/O:Joaquín was lying in bed when CM and LEANNA Martell came to see him. His 2 sons and a grand daughter were also present. Joaquín has not been doing well for the past few days. He has not had good pain control and, when medicated with narcotics, becomes really somnolent. This morning he was not responding much more than opening his eyes when spoken to. His sons both had questions about his prognosis and what options there were for care, which Jayshree answered. Given his decline and the lack of treatment options, they are considering having him go home on hospice. His son Domingo is currently not working and would be available to be a caregiver. His other son Jabari is also very willing to help. [facility] to discuss [facility] situation and will inform CM tomorrow where they would like him to go and when they will be ready. They will need a hospital bed and other DME. Domingo informed the provider and CM that Joaquín has stated over the years that he does not want to in the hospital or a fci so they are committed to taking him home. A: Joaquín is an 80 year old man admitted with spinal cord compression on 11/25/21 P:Joaquín's discharge plan is not clear at this time. He has significant weakness in both his upper and lower extremities making mobilization and performing ADLs challenging. His family would like to take him home on hospice if he survives this admission. CM will continue to provide support to Joaquín and his family and assess for ongoing discharge needs.
[2021-11-29] MEDS: MORPHine 2 MG/ML SYR 1 MG IV/SC ×4 (13:56→21:49)
[2021-11-29] MEDS: Normal Saline Flush 10 ML SYR (13:56)
[2021-11-29] MEDS: Lidocaine 5% Patch 2 PATCH TP (13:57)
--- NOTE | 2021-11-29 15:09 | W.PM.PROGNOT ---
Date of Service Date of service: 11/29/21 Time of Service: 15:09 Assessment and Plan Assessment and plan (1) Cervical stenosis of spine: Status: Acute Assessment and plan: admitted to med/surg for acute decompensation at home, unable to care for self. MRI shows moderate to severe compression of the spinal cord at C3-C4 and severe foraminal stenosis. Moderate central canal stenosis and moderate foraminal stenosis at C4-C5. non surgical candidate scheduled apap, prn toradol, will add lidocaine patch and tramadol prn. was very sensitive to low dose morphine. palliative care consultation PT/OT unable to perform d/t rapid decline family at beside, 2 sons and granddaughter. Domingo is spokeperson and d/t his rapidly declining status and pain management challenges wishes are for comfort focused measures and with shared decision making was made comfort measures only. family to explore home with hospice vs here for end of life care. will coordinate with case management once they have decided. (2) Comfort measures only status: Status: Acute (3) Discharge planning issues: Status: Acute Assessment and plan: case management working with family on end of life care here or at home on hospice. discussed with Dr Moreno Subjective Subjective Interval history since last seen: patient requiring pain medication overnight, remains somnolent again today, arrousable but goes right back to sleep. no taking PO. ongoing significant decline past 2 days Exam Const General: no acute distress, frail appearing and ill appearing Nutritional Appearance: thin HENMT Head: normal to inspection, normocephalic and atraumatic Resp Effort & Inspection: normal respiratory effort Cardio Rate: regular rate Rhythm: regular rhythm GI Inspection: normal to inspection Palpation: soft Auscultation: normal bowel sounds Skin General skin exam: no rashes or lesions noted Neuro General: tone abnormal and other (sedate but arousable. ) Motor: tone not normal throughout, strength not 5/5 throughout and strength abnormal (1/5 bilateral upper) Extrem General: no pedal edema Objective Last Vital Signs Temp 36.0 C L 11/29/21 07:29 Pulse 71 11/29/21 07:29 Resp 16 11/29/21 07:29 BP 133/72 11/29/21 07:29 Pulse Ox 97 11/29/21 07:29 Laboratory Results - last 24 hr 11/28/21 11/29/21 11/29/21 15:30 11:32 11:32 WBC Cancelled RBC Cancelled Hgb Cancelled Hct Cancelled MCV Cancelled MCH Cancelled MCHC Cancelled RDW Cancelled Plt Count 336 Cancelled MPV Cancelled Immature Gran % Cancelled Neutrophils % Cancelled Band Neutrophils % Cancelled Lymphocytes % Cancelled Atypical Lymphs % Cancelled Monocytes % Cancelled Eosinophils % Cancelled Basophils % Cancelled Metamyelocytes % Cancelled Myelocytes % Cancelled Promyelocytes % Cancelled Other Cells % Cancelled Nucleated RBC % Cancelled Absolute Neutrophils Cancelled Absolute Lymphocytes Cancelled Absolute Monocytes Cancelled Absolute Eosinophils Cancelled Absolute Basophils Cancelled RBC Morphology Cancelled Polychromasia Cancelled Hypochromasia Cancelled Poikilocytosis Cancelled Basophilic Stippling Cancelled Anisocytosis Cancelled Microcytosis Cancelled Macrocytosis Cancelled Spherocytes Cancelled Tear Drop Cells Cancelled Ovalocytes Cancelled Stomatocytes Cancelled Carvajal-Kimberton Bodies Cancelled [place] Cells/Echinocytes Cancelled Acanthocytes (Spur) Cancelled Schistocytes Cancelled Sodium Cancelled Potassium Cancelled Chloride Cancelled Carbon Dioxide Cancelled Anion Gap Cancelled BUN Cancelled Creatinine Cancelled Est GFR (CKD-EPI 2020) Cancelled Glucose Cancelled Calcium Cancelled
[2021-11-29] MEDS: LORazepam 2 MG/ML VIAL 0.5 MG IVP (16:01)
[2021-11-29] MEDS: Normal Saline Flush 10 ML SYR IVP ×3 (16:01→18:28)
[2021-11-29] MEDS: LORazepam 2 MG/ML VIAL IVP (22:01)
[2021-11-30] MEDS: LORazepam 2 MG/ML VIAL IVP ×7 (01:18→23:53)
[2021-11-30] MEDS: MORPHine 2 MG/ML SYR 1 MG IV/SC ×8 (01:19→21:21)
[2021-11-30] MEDS: Normal Saline Flush 10 ML SYR IVP ×8 (01:20→23:53)
--- NOTE | 2021-11-30 05:45 | PT.INDS ---
PT Notes Visit Reasons: Spinal Cord Compression Inpatient Physical Therapy Discharge Summary Treatment Dates: 11/25/2021 - 11/30/21 Referring Doctor: Jaziel Lowry MD PT Orders: PT CONSULT: Evaluate This document serves as a summary of care. No PT services were provided on this date. Patient Profile/Admitting Diagnosis: 80-year-old male who was admitted from the ER due to profound weakness. MRI showed?moderate to severe compression of the spinal cord at C3-C4 and severe foraminal stenosis. Moderate central canal stenosis and moderate foraminal stenosis at C4-C5. During hospitalization, patient rapidly declined. He participated in 3 sessions of skilled PT intervention with limited tolerance, and transitioned to comfort measures on 11/29/21. Subjective: None obtained Objective: ROM: Strength: His upper extremity strength is generally rated 2/5 other than his obiee lead developer at 3/5. He is unable to touch the tip of his pinky with his thumb. He has mild intrinsic wasting His lower extremity strength is generally rated 3/5 with ankle musculature at 4/5 Neuro: Reflexes are hypomobile reflexive, has proprioceptive loss of his great toes with diminished sensation light touch throughout the extremities. Proprioception is intact in the upper extremity but he has stereognosis of his hands. Fingertips to nose is clumsy but without ataxia. Babinski is unequivocal Rolling L/R: I with semi-roll Supine-sit: Mod A? Sit-supine: Min A ? Sit-stand: Mod A x2? Stand-sit: Mod A x2 ? Bed-Chair: Unable ? GAIT? Assistive Device: Patient unable to grasp FWW appropriately (unsafe) CHARGING PLUG PLACER x2? Weight bearing: As tolerated Assist: Mod A x2? Distance:? Marching in place x6 steps L/R with FWW 4 side steps to R with CHARGING PLUG PLACER x2 ? Deviation: B knees giving out, pain in B shoulders, pain in B legs ? Balance: Static Sitting: Fair requiring standby supervision. Patient had tendency to fall backwards Dynamic Sitting: Poor and easily disrupted Static Standing: Stable while using a walker. Contact guarding with his hands off the walker Dynamic Standing: Poor and is unable to perform unilateral heel lift Assessment: Patient is a 80year old male referred to physical therapy services with the diagnosis of progressive extremity weakness due to C3-4 spinal cord compression. He tolerated PT only to a limited degree, and unfortunately demonstrated significant decline over his course of care, with progressive pain and weakness. He transitioned to comfort measures yesterday, and is appropriate for discharge from PT services. Goals: Goals X1 week (NOT MET) 1. Supine-Sit independent 2. Sit-Supine independent 3. Sit-Stand independent 4. Stand-Sit independent 5. Bed-Chair with supervision 6. Chair-Bed with supervision 7. Gait ambulation with a wheeled walker with minimal contact guarding and a stable gait 8. Stairs able to a send and descend 3 steps with a railing 9. Increase strength throughout Plan of Care/Treatment Plan: D/C from PT services. TREATMENT CODE/TIME: none
[2021-11-30] MEDS: Refresh PLUS Eye Drops 0.4ml 2 EACH OU ×2 (08:46→23:53)
--- NOTE | 2021-11-30 09:08 | CMPROGNOTE_ITS ---
- If Service Date Differs Date of service: 11/30/21 Time of Service: 09:08 Care Management Progress Note S/O:Joaquín was lying in bed when CM met with him. He has been transitioned to comfort care and has been receiving morphine and Ativan as needed. At the time of KAIT's visit he was sleeping and appeared comfortable. He did not respond to touch or voice. During the day several family came to visit. Monet from [facility] came to meet with Cornell to complete a hospice consult. Cornell indicated that the adarsh kauffman is still trying to figure things out. Cornell's Mom, Joaquín's ex-, visited last evening and found him in pain. There had been some discussion about transferring Joaquín to her house (where cornell also lives) for end of life care, but after the visit, she apparently had reservations. She shared that she was unsure if she could manage his pain. KAIT spoke with Cornell after the hospice consult. He understands if/when he decides to bring Joaquín home, that hospice will need at least a 24 hour notice to obtain needed equipment and schedule the admission. A: Joaquín is an 80 year old man admitted with spinal cord compression on 11/25/21 P:Joaquín's discharge plan is not clear at this time. He has transitioned to comfort care and is sedated and non-verbal. A hospice consult was completed today and it is possible Joaquín will discharge home for end of life care with hospice support. KAIT will continue to provide support to Joaquín and his family and assess for ongoing discharge needs.
--- NOTE | 2021-11-30 18:00 | W.PM.PROGNOT ---
Date of Service Date of service: 11/30/21 Time of Service: 10:30 Assessment and Plan Assessment and plan (1) Cervical stenosis of spine: Status: Acute Assessment and plan: Chronic - there is no treatment, family would like him to go home for end of life care with [facility]. Care mgt speaking with hospice to coordinate discharge time. (2) Comfort measures only status: Status: Acute Assessment and plan: Sleeping most of the day, no grimacing, supine, quiet even breathing. Pale, but color is unchanged. (3) Discharge planning issues: Status: Acute Assessment and plan: case management working with family on end of life shelter on hospice. discussed with Dr Moreno Subjective Subjective Patient reports: no new complaints Interval history since last seen: Sleeping each time I visited him today, family has been in and out. Family would like to take him to go home on hospice tomorrow. Care mgt aware of discharge plan and has referred to Home Hospice Exam Narrative Exam Narrative: Sleeping no brow furrow, steady rate of resp, no diff breathing of SOB. Appears quite comfortable. Objective Last Vital Signs Temp 36.0 C L 11/29/21 07:29 Pulse 71 11/29/21 07:29 Resp 16 11/29/21 07:29 BP 133/72 11/29/21 07:29 Pulse Ox 97 11/29/21 07:29 Reviewed Pertinent PMH: Yes
[2021-11-30] MEDS: Lidocaine 5% Patch 2 PATCH TP (21:22)
[2021-12-01] MEDS: Lidocaine 2% Jelly 11 ML SYR UR (00:40)
[2021-12-01] MEDS: MORPHine 2 MG/ML SYR 1 MG IV/SC ×4 (00:46→09:58)
[2021-12-01] MEDS: Glycopyrrolate 0.2 MG/1 ML VIAL 0.1 MG IVP ×2 (01:03→16:50)
[2021-12-01] MEDS: Normal Saline Flush 10 ML SYR IVP ×4 (08:45→11:43)
[2021-12-01] MEDS: LORazepam 2 MG/ML VIAL IVP (10:18)
[2021-12-01] MEDS: Lidocaine Patch Removal 2 EACH TP (10:21)
--- NOTE | 2021-12-01 11:03 | CMPROGNOTE_ITS ---
- If Service Date Differs Date of service: 12/01/21 Time of Service: 11:03 Care Management Progress Note S/O:Joaquín remains on comfort care and is no longer responding to verbal stimuli. Over the last couple of days he has been receiving prn morphine and Ativan but he still has periods when he is very uncomfortable and moans or cries out. Rhea Veras NP, Joaquín's provider, talked with both of his sons today about starting a CADD pump for continuous infusion.She explained that it would eliminate his pain more effectively as there would be a continuous infusion of medication. At first Domingo was resistant to the idea but eventually agreed with his brother Aiden that it would be in Joaquín's best interest. The infusion was started a little after noon at 1.5mg/hr, consistent with the prn dosing he was receiving. A: Joaquín is an 80 year old man admitted with spinal cord compression on 11/25/21 P:Joaquín's family has decided to take him home on hospice. The plan is for him to discharge home tomorrow afternoon and be admitted to hospice at that time. He is already on a CADD pump for pain control. [facility] is working on obtaining a semi- electric bed for him as well as other needed DME. The timing for the discharge will be predicated on the arrival time of the equipment tomorrow. Transportation will be via EMS coordinated by CM. CM will continue to support Joaquín and his family through this difficult time.
[2021-12-01] MEDS: Scopolamine 1 MG/3 DAYS PATCH TD (11:37)
[2021-12-01] MEDS: Refresh PLUS Eye Drops 0.4ml 2 EACH OU (11:37)
[2021-12-01] MEDS: MORPHine 4 MG/ML SYR IV/SC (11:43)
--- NOTE | 2021-12-01 11:51 | PDOC.CMDIS ---
- If Service Date Differs Date of service: 12/01/21 Time of Service: 11:51 Care Management Discharge Reason for Hospitalization: spinal cord compression
--- NOTE | 2021-12-01 12:19 | NUR.NOTE ---
Nursing Note: BUSINESS MANAGEMENT SPECIALIST pump set up in the patients room. auto fleet maintenance manager Shelly entered the room and stated to wait until we heard from the patients second son to start the pump. This RN gave 2mg morphine IV push prior to repositioning patient. Provider heard from the second family member and gave the okay to start the pump.
[2021-12-01] MEDS: Acetaminophen 650 MG SUPP PR (15:16)
[2021-12-01] MEDS: Lidocaine 2% Jelly 11 ML SYR (15:51)
--- NOTE | 2021-12-01 16:54 | PGE_ITS ---
Date of Service Date of service: 12/01/21 Time of Service: 13:00 Assessment and Plan Assessment and plan (1) Cervical stenosis of spine: Status: Acute Assessment and plan: Chronic - there is no treatment, family would like him to go home for end of life care with [facility]. Care mgt speaking with hospice to coordinate discharge time for tomorrow 12/02/2021 Started on a CADD pump for pain/diff breathing. Scopalamine patch for secretions, haldol orally prn agitation. (2) Bleeding from urethra in male: Status: Acute Assessment and plan: Indwelling urinary catheter placed last night and was traumatic per nursing. There was blood and no urine. This morning a bladder scan was done for > 800 ml. Nursing attempted to change the catheter including using a coude without success. After the catheter was removed, the bladder scan was ~50 ml -- although nursing reports brief is dry. He appears comfortable, no furrowed brow, no yelling out, equal non labored respirations. We will continue to bladder scan, if needed a needle drainage can be performed. If needed Dr Marshall will see in am to use cystoscopy to place a wire and put the catheter over it. (3) Comfort measures only status: Status: Acute Assessment and plan: Sleeping most of the day, no grimacing, supine, quiet even breathing. Pale, but color is unchanged. CADD pump at 1.5 mg/h (range up to 4 mg/h) with 0.25 mg bolus every 15 min avail (4) Discharge planning issues: Status: Acute Assessment and plan: case management working with family on end of life [facility] on hospice 12/02/[address] Moreno Subjective Subjective Patient reports: pain is less and afebrile; denies diarrhea, nausea or vomiting Interval history since last seen: Joaquín has been crying out for his mother and appearing to have pain; discussion with both sons, agreement to place on CADD pump. Last danielle a urinary catheter was placed and blood was noted. There was not any urine in the drainage bag. Today he was bladder scanned for >800 ml. Attempt was made to change the catheter, including trying a coude and still no urine out, just blood. We contacted Dr Marshall and he recommended if necessary a suprapubic needle aspiration. Nursing reports increased pain and agitation; after discussion with Aiden (son), and then Domingo, it was agreed that he would benefit from a CADD pump; a morphine CADD pump was started and haldol prn available orally. Each time I go in the room he appears comfortable. Exam Narrative Exam Narrative: Sleeping no brow furrow, steady rate of resp, no diff breathing or SOB. Appears comfortable. Const General: no acute distress, well developed and well groomed Nutritional Appearance: average body habitus [facility] Head: normal to inspection, normocephalic and atraumatic Mouth: oral mucosae normal Resp Effort & Inspection: normal respiratory effort Auscultation: rales bilaterally at the base Cardio Rate: regular rate Rhythm: regular rhythm GI Inspection: normal to inspection Palpation: soft Auscultation: normal bowel sounds Skin General skin exam: no rashes or lesions noted Extrem General: no pedal edema Objective Last Vital Signs Temp 36.0 C L 11/29/21 07:29 Pulse 71 11/29/21 07:29 Resp 16 11/29/21 07:29 BP 133/72 11/29/21 07:29 Pulse Ox 97 11/29/21 07:29
--- NOTE | 2021-12-01 21:26 | W.EVENT ---
Date of service: 12/01/21 Time of Service: 21:26 Event Note: Informed by nursing that patient passed at 2117. Patients octavia Thomson informed of passing. Offered for family to go into hospital visit if wanted. Patient understood. Time Spent with Patient Time spent in critical care(minutes): 0 Time Spent Included: Discussing Hx and/or treatment with family
--- NOTE | 2021-12-01 21:44 | DSE_ITS ---
DS: Diagnosis Discharge Diagnosis (1) Cervical stenosis of spine: Status: Acute (2) Bleeding from urethra in male: Status: Acute (3) Comfort measures only status: Status: Acute (4) Discharge planning issues: Status: Acute Discharge Plan Disposition Patient Disposition: Condition: Stable Discharge Details Reason For Visit: Spinal Cord Compression Admit Date/Time: 11/25/21 12:56 Admit Provider: Gregorio Casillas Attending Provider: Gregorio Casillas Primary Care Provider: Ac Romeo Hospital Course Hospital Course: Patient admitted 11/25/21 for cervical stenosis and acute decompensation at home and an inability to care for himself at home. He was deemed to be a non surgical candidate and a palliative care consultation was placed. MRI shows?moderate to severe compression of the spinal cord at C3-C4 and severe foraminal stenosis. Moderate central canal stenosis and moderate foraminal stenosis at C4-C5. 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 PT/OT was unable to work with him due to a rapid clinical decline and given the above, family ultimately decided to have a comfort driven plan for the patient and he was made [employer]. Indwelling urinary catheter placed 11/30/21 and was traumatic per nursing.? There was blood and no urine.? This morning a bladder scan was done for > 800 ml.? Nursing attempted to change the catheter including using a coude without success. After the catheter was removed, the bladder scan was ~50 ml -- although nursing reports brief is dry.?There was concern for a possible perforation. informed that patient 2117 on 11/30/21. Patients son Berto was called and informed of passing and offered to come into hospital to say good- byes. Home Meds and New Rx's Prescriptions: No Action nitroglycerin 0.4 MG tablet, sublingual 0.4 mg Sublingual PRN PRN Label Comments: pt reports that he thinks he took one of these a week ago 03/15/15 aspirin [Aspir-81] 81 MG tablet,delayed release (DR/EC) 81 mg PO DAILY allopurinol 100 MG tablet 100 mg PO DAILY Qty: 0 0RF valsartan [Diovan] 40 mg tablet 20 mg PO BID Qty: 60 0RF eplerenone 25 mg tablet 12.5 mg PO QAM furosemide 40 mg tablet 40 mg PO BID@0830,1200 acetaminophen [Tylenol Arthritis Pain] 650 MG tablet extended release 650 mg PO Q6H PRN PRN metoprolol succinate 25 mg tablet extended release 24 hr 100 mg PO DAILY Rx Instructions: MED LIST PER PCP STATES DOSE IS 100MG TAB--1/2 TAB DAILY--STACIE GUZMAN atorvastatin 40 mg tablet 80 mg PO HS Discharge Data Cause of : Cervical stenosis of spinal canal DS: Summary Time Spent with Patient providing and/or coordinating discharge services: Less than 30 minutes Status at Discharge Functional status at discharge: bed bound () Overall status at discharge: other Mental Status: other Speech and Movement: other Mood: other Affect: other Exam Psych Mental Status: other Speech and Movement: other Mood: other Affect: other DS: Data Vitals/I&O Vitals and I&O: Vital Signs Temperature 36.0 C L 11/29/21 07:29 Temperature Source Tympanic 11/29/21 07:29 Pulse 71 11/29/21 07:29 Pulse Rhythm Regular 11/29/21 09:00 Respiratory Rate 16 11/29/21 07:29 Respiratory Effort 11/29/21 03:43 Respiratory Depth Deep 11/29/21 03:43 Respiratory Pattern Normal 11/29/21 03:43 Blood Pressure 133/72 11/29/21 07:29 Blood Pressure Mean 92 11/25/21 11:48 Blood Pressure Position Supine 11/24/21 15:24 Pulse Oximetry 97 11/29/21 07:29 Oxygen Delivery Method Nasal Cannula 11/29/21 07:29 Oxygen Flow Rate 1.5 11/29/21 07:29 Pain Level 0 11/28/21 20:04 Comment 11/27/21 12:19 Intake & Output 11/30/21 12/01/21 12/01/21 23:59 11:59 23:59 Intake Total 1.875 / 1.875 Output Total 600 / 600 Balance -600 / -598.125 1.875 / -598.125 Intake: IV 1.875 / 1.875 Output: Urine 600 / 600 Other: Urine Color Yellow Urine Appearance Clear Comment pt has not voided in over 8 hours [place] discontinued due to no output noted on this shift. Blood had been noted to be leaking around the catheter, assuming it was related from traumatic insertion of burgos on previous night shit. Bladder scanned the patient for >700 ml of urine. Patient began gaurding the abdomen and gettting restless assuming this was from full bladder. Pulled out current burgos, and then STACIE Regalado attemped a coude' catheter with no success, and ABHIJEET Wilkerson attempted again with no success. MD asked this nurse to re- bladder scan the patient, and only approx 50 mL was shown on the scan and patient has not voided. MD aware of this. Patient is on comfort measures only and appears comfortable at this time. Voiding Methods Diaper Incontinent PFSH All Active Problems (Updated 12/01/21 @ 17:42 by Rhea Veras NP) Bleeding from urethra in male (Acute) Comfort measures only status (Acute) Cervical stenosis of spine (Acute) Moderate to severe compression of the spinal cord at C3-C4 and severe foraminal stenosis. 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) CHF (congestive heart failure) (Chronic) Dyspnea (Acute) CHF (congestive heart failure) (Chronic) Acute exacerbation of CHF (congestive heart failure) (Acute) Pleural effusion (Acute) Anasarca (Acute) Dizziness (Acute) Dizziness (Acute) Congestive heart failure (Chronic) Contusion of hand, left (Acute) Contusion of hip, left (Acute) Mild dehydration (Acute) Fracture of triquetral bone of left wrist (Acute) Carotid stenosis, right (Acute) Acute exacerbation of CHF (congestive heart failure) (Acute) Dysphasia (Acute) Internal carotid artery occlusion (Acute) LEFT Acute kidney injury superimposed on chronic kidney disease (Acute) Dysarthria (Acute) Abdominal pain (Acute) Shortness of breath (Acute) Dizziness (Acute) Pleural effusion on right (Chronic) Palpitations (Acute) Calcific tendinitis of right shoulder (Acute) Cervical spinal stenosis (Acute) DNI (do not intubate) (Acute) DNR (do not resuscitate) (Acute) POLST (Physician Orders for Life-Sustaining Treatment) (Acute) Hypoxia (Chronic) Right shoulder pain (Acute) At risk for aspiration (Acute) Weakness generalized (Acute) Acute hypernatremia (Acute) Mental status, decreased (Acute) Discharge planning issues (Acute) DVT prophylaxis (Acute) Bladder neck contracture (Acute) Prostate cancer (Chronic) Chronic kidney disease (Chronic) STAGE 3 Hypercholesterolemia (Chronic) Hypertension (Chronic) CAD (coronary artery disease) (Chronic) Ischemic cardiomyopathy (Chronic) Heart failure, chronic, with acute decompensation (Acute 12/31/12) Bladder outlet obstruction (Chronic) Medical History Ascites CHF (congestive heart failure) Combined systolic/diastolic, EF 50% by echo in 03/19 Chronic shortness of breath Cirrhosis History of carcinoma in situ of prostate DESAI (nonalcoholic steatohepatitis) Palliative care patient Pleural effusion, right Surgical History History of heart artery stent S/P prostatectomy Status post THR (total hip replacement) Family History Son No problems noted. Social History Smoking/Tobacco Use Status: Never Smoking risk assessment performed?: Yes Alcohol Intake: former Drug use: Never Substance use type: does not use Caregiver/Support person: Yes Communication Needs: Hard of Hearing and Corrective Lenses Education Level: high school Do you need help understanding health information?: Always Current gender identity: male How often do you talk on the phone with friends or family?: three or more times per week How often do you get together with friends or relatives?: three or more times per week Panel score (0-1 are the most socially isolated patients): 1 What type of physical activity do you participate in: walking Duration: 15-30 minutes/day Special deanna needs: No Seatbelt use: always Do you feel safe at home: Yes Do you feel safe in your relationship?: Yes Additional Social history: Son Berto is his main person who helps care for him. He is a , but was posted in [place] during the [employer] era. He has insurance with both medicare and [employer].
== END 2021-12-01 23:59 | disposition expired | DRG 552 ==
LOC: ER 11-25 13:12 → MS 11-25 14:58
PROVIDERS: Internal Medicine; Admitting Provider Family Medicine; Emergency Provider Student in an Organized Health Care Education/Training Program; PCP Family Medicine; Visit Provider Family Medicine
DX: M48.02 Spinal stenosis, cervical region (principal); M47.12 Other spondylosis with myelopathy, cervical region; I13.0 Hypertensive heart and chronic kidney disease with heart failure and stage 1 through stage 4 chronic kidney disease, or unspecified chronic kidney disease; G47.33 Obstructive sleep apnea (adult) (pediatric); K74.69 Other cirrhosis of liver; I50.9 Heart failure, unspecified; E86.0 Dehydration; Z66 Do not resuscitate; R09.02 Hypoxemia; R53.1 Weakness; E78.00 Pure hypercholesterolemia, unspecified; I25.10 Atherosclerotic heart disease of native coronary artery without angina pectoris; I25.2 Old myocardial infarction; N32.0 Bladder-neck obstruction; Z85.46 Personal history of malignant neoplasm of prostate; N18.31 Chronic kidney disease, stage 3a; Z51.5 Encounter for palliative care; Y84.6 Urinary catheterization as the cause of abnormal reaction of the patient, or of later complication, without mention of misadventure at the time of the procedure; N36.8 Other specified disorders of urethra; S06.5XAD Traumatic subdural hemorrhage with loss of consciousness status unknown, subsequent encounter; W19.XXXA Unspecified fall, initial encounter
CPT/HCPCS: 36415; 80048; 80053; 87635; 97110; 97116; 97163; 97167; 97530; 97535; 99285; J1650; 70450; 72141; 72146; 72148; 81003; 81015; 83735; 84484; 85025; 85049; 87086; 99222; 99232; 99233; J2060; J2270; J3490; J7512